=== PATIENT | female | born 1940 | race Caucasian/White ===

== ENCOUNTER 2016-06-16 18:15 | Inpatient (IN) | payer OTHER, BC ==
[~2016-06-16] VITALS: Ht 160 cm; Wt 63.1 kg
[~2016-06-16 18:15] MED LIST: ABAT1INJ2 INJ; ALBUAER2 INH; ASPI81TA28 PO; BIOTCAP2 PO; CHOL100010 PO; DICL1GEL34 TOP; DILT120T8 PO; HYDR200T5 PO; METH2.5T PO; MULT-506 PO; NAPR1TAB9 PO; OMEG10007 PO; POLY99.02 OP; POLYSOL4 OP; SPIR50TA PO; SYMIN160 INH
[2016-06-16] MEDS ORDERED: ONDANSETRON INJ 2 MG/ML 2 ML VIAL IV STA (19:02)
[2016-06-16] MEDS ORDERED: SODIUM CHLORIDE 0.9% 1000ML 1,000 ML IV STA (19:02)
[2016-06-16] MEDS ORDERED: SODIUM CHLORIDE 0.9% 1000ML 500 ML IV STA (19:02)
[2016-06-16] MEDS ORDERED: VNTHFA/IN INH (19:20)
[2016-06-16] MEDS ORDERED: CHOL1000 PO (19:20)
--- NOTE | 2016-06-16 19:33 | DIAGNOSTIC IMAGING REPORT ---
CHEST ONE VIEW PORTABLE CLINICAL HISTORY: EVALUATE ALTERED MENTAL STATUS/WEAKNESS dyspnea COMPARISON STUDY: 02/17/2016 FINDINGS: Chronic bibasilar parenchymal/linear scarring. Unchanging Baseline emphysematous change. No acute infiltrate. IMPRESSION: Chronic change. Emphysematous change. No acute or interval process. Electronically signed by: Emiliano Bolden M.D. 06/16/2016 7:32 PM Dictated Date/Time: 06/16/2016 7:31 PM
[2016-06-16 19:40] LABS: PARTIAL THROMBOPLASTIN RATIO 1.1; PROTHROMBIN TIME (PATIENT) 10.6 SECONDS (9.0-12.0)
--- NOTE | 2016-06-16 19:52 | DIAGNOSTIC IMAGING REPORT ---
HEAD CT NONCONTRAST CT DOSE: 537.48 mGy.cm HISTORY: EVALUATE ALTERED MENTAL STATUS/WEAKNESS TECHNIQUE: Multiaxial CT images of the head were performed without the use of intravenous contrast. Comparison: 02/17/2016 Findings: The paranasal sinuses and mastoid air cells are clear. Unchanged exam compared to prior. Stable benign-appearing right central pontine calcifications. 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 Mild age-related chronic small vessel change. No acute intracranial hemorrhage. Impression: Chronic and age-related change. No acute intracranial abnormality. Electronically signed by: Emiliano Bolden M.D. 06/16/2016 7:51 PM Dictated Date/Time: 06/16/2016 7:50 PM
[2016-06-16 20:02] LABS: ALB/GLOB RATIO 1.3 (0.9-2); ALKALINE PHOSPHATASE 83 U/L (45-117); ALT/SGPT 42 U/L (12-78); AST/SGOT 34 U/L (15-37); BLOOD UREA NITROGEN 13 mg/dl (7-18); BUN/CREATININE RATIO 22.4 (10-20); CALCIUM 10.7 mg/dl (8.5-10.1); CARBON DIOXIDE 24 mmol/L (21-32); CHLORIDE 74 mmol/L (98-107); CREATININE 0.58 mg/dl (0.60-1.20); GLUCOSE 117 mg/dl (70-99); POTASSIUM 3.4 mmol/L (3.5-5.1); SODIUM 112 mmol/L (136-145)
[2016-06-16 20:09] LABS: HEMATOCRIT 37.5 % (37-47); MEAN CELL VOLUME 88.2 fL (80-100); MEAN CORPUSCULAR HEMOGLOBIN 34.1 pg (25-34); MEAN CORPUSCULAR HGB CONC 38.7 g/dl (32-36); MEAN PLATELET VOLUME 9.5 fL (7.4-10.4); PLATELET COUNT 261 K/uL (130-400); RED BLOOD COUNT 4.25 M/uL (4.2-5.4); WHITE BLOOD COUNT 16.84 K/uL (4.8-10.8)
[2016-06-16 20:11] LABS: BASO % 0.2 %; BASO ABS # 0.03 K/uL (0-0.2); COMPLETE YES; EOS % 0.6 %; IG% 0.7 %; LYMPH ABS # 1.68 K/uL (1.2-3.4); MONO % 10.6 %; NEUT % 77.9 %
[2016-06-16 20:30] LABS: URINE APPEARANCE CLOUDY (CLEAR); URINE BILIRUBIN NEG (NEG); URINE COLOR YELLOW; URINE EPITHELIAL CELL AUTO >30 /lpf (0-5); URINE NITRITE NEG (NEG); URINE PH 7.5 (4.5-7.5); URINE SPECIFIC GRAVITY 1.007 (1.000-1.030); UROBILINOGEN NEG (NEG); ZZURINE CULT IF INDIC CATH YES
[2016-06-16 20:33] LABS: MANUAL MICROSCOPIC REQUIRED? NO; REVIEW REQ? NO; SULFASALICYLIC ACID POS (NEG)
[2016-06-16] MEDS ORDERED: ACETAMINOPHEN 325 MG TAB PO PRN (22:15)
[2016-06-16] MEDS ORDERED: ALBUTEROL HFA 8 GM INHALER INH PRN (22:15)
[2016-06-16] MEDS ORDERED: ZOLPIDEM TARTRATE 5 MG TAB PO PRN (22:15)
[2016-06-16] MEDS ORDERED: NITROGLYCERIN 0.4 MG SL PER TAB CHARGE SL PRN (22:15)
[2016-06-16] MEDS ORDERED: PROMETHAZINE HCL INJ 12.5 MG in SODIUM CHLORIDE 0.9% 50ML 50 ML IV PRN (22:15)
[2016-06-16] MEDS ORDERED: DiphenhydrAMINE HCL 50 MG/ML VIAL IV PRN (22:15)
[2016-06-16] MEDS ORDERED: ONDANSETRON INJ 2 MG/ML 2 ML VIAL IV PRN (22:15)
[2016-06-16] MEDS ORDERED: LEVALBUTEROL/IPRATROPIUM NEB INH PRN (22:15)
[2016-06-16] MEDS ORDERED: NON-FORMULARY MEDICATION (Biotin (Biotin 5000) 5 MG) PO SCH (22:15)
[2016-06-16 23:05] VITALS: BP 134/74; PULSE 59; TEMP 36.7; O2SAT 93; Ht 160 cm; Wt 63.1 kg
[2016-06-16 23:05] LABS: CKMB/CK RATIO 1.4 (0-3.0)
[2016-06-16] MEDS: LORAZEPAM 2 MG/ML 1 ML VIAL IV PRN (23:34)
[2016-06-17] VITALS (9 sets, daily range): BP systolic 120–143; BP diastolic 69–85; PULSE 69–91; TEMP 36.5–37.6; O2SAT 88–94
--- NOTE | 2016-06-17 00:29 | EMERGENCY ROOM VISIT NOTE ---
History Report prepared by Shagufta: Joyce Lopez Under the Supervision of: Dr. Neo aYp M.D. First contact with patient: 18:56 Chief Complaint: FALL Stated Complaint: FALL History of Present Illness The patient is a 75 year old female who presents to the Emergency Room with complaints of constant injuries from a fall that occurred just prior to arrival. The patient was brought in via EMS after slipping in the shower and then falling. She notes that she felt dizzy before she fell. The patient currently is nauseated. She did have a previous fall recently. She denies LOC, headache, vertigo sensation, urinary symptoms, blood thinner use, chest pain, or shortness of breath. The patient is scheduled for a knee replacement tomorrow. Source of History: patient Onset: just [employer] Position: other (global) Quality: other (injuries from fall) Timing: constant Associated Symptoms: + nausea, No LOC, No SOB, No chest pain, No urinary symptoms Review of Systems See HPI for pertinent positives & negatives. A total of 10 systems reviewed and were otherwise negative. Past Medical & Surgical Medical Problems: (1) Asthma (2) Bronchitis (3) Hypo-osmolality and hyponatremia (4) Rheumatoid arthritis Family History Patient reports no known family medical history. Social History Smoking Status: Former Smoker Alcohol Use: none Drug Use: none Marital Status: single Housing Status: lives alone Occupation Status: retired Current/Historical Medications Scheduled Aspirin (Aspirin Ec), 81 MG PO QPM Biotin (Biotin 5000), 5 MG PO Q2D Budesonide/Formoterol Fumarate (Symbicort 160/4.5 Inhaler), 1 PUFF INH QAM Cholecalciferol (Vitamin D3), 5,000 UNITS PO DAILY Diltiazem Hcl (Cardizem), 120 MG PO BID Hctz/Spironolactone 25MG/25MG (Aldactazide 25MG/25MG), 1 TAB PO BID Hydroxychloroquine Sulfate (Plaquenil), 200 MG PO BID Multivitamin (Multivitamin), 1 TAB PO QAM Scheduled PRN Albuterol Hfa (Ventolin Hfa), 2 PUFFS INH QID PRN for Shortness of Breath Allergies Coded Allergies: Latex1 -Allergic Contact Dermititis (Verified Allergy, Mild, RASH, 06/05/16 ) Banana (Verified Allergy, Unknown, RASH, 06/05/16) [place] Nut (Verified Allergy, Unknown, HIVES, 06/05/16) Ciprofloxacin (Verified Allergy, Unknown, PASSED OUT, SEVERE RXN PER PATIENT, 06/05/16) Codeine (Verified Allergy, Unknown, DIZZINESS, 06/05/16) Moxifloxacin (Verified Allergy, Unknown, PAIN IN HEEL, 06/05/16) Nickel (Verified Allergy, Unknown, RASH ON EARS WITH EARRINGS WITH NICKEL , 06/05/16) Sulfa Antibiotics (Verified Allergy, Unknown, UNSURE OF RXN, 06/05/16) Fluconazole (Verified Adverse Reaction, Intermediate, TACHYCARDIA, HAIR LOSS, 06/12/16) Adhesives (Verified Adverse Reaction, Mild, CONTACT DERMATITIS, 06/05/16) Lactose. (Verified Adverse Reaction, Unknown, GI SYMPTOMS, 06/05/16) Pt reports lactose intolerance Physical Exam Vital Signs Date Time Temp Pulse Resp B/P Pulse Ox O2 Delivery O2 Flow Rate FiO2 06/16/16 21:13 56 18 122/58 93 Room Air 06/16/16 19:57 56 16 132/78 95 Room Air 06/16/16 19:14 58 06/16/16 18:26 36.6 63 20 153/75 99 Room Air Physical Exam GENERAL: Patient is in no acute distress. HEENT: Right facial deformity secondary to old injury. There is an old contusion inferior to the left eye. No cellulitis. Mucous membranes moist. NECK: No stridor, no adenopathy, no meningismus, trachea is midline. LUNGS: Clear to auscultation bilaterally, no wheeze, no rhonchi, breath sounds equal. HEART: Without murmurs gallops or rubs, regular rate and rhythm. ABDOMEN: Soft, nontender, bowel sounds positive, no hernias, no peritonitis. EXTREMITIES: No cyanosis or edema, full range of motion of all the joints without pain or difficulty, no signs for acute trauma. NEUROLOGIC: Oriented x 3, no acute motor or sensory deficits, no focal weakness. SKIN: No rash, no jaundice, no diaphoresis. Medical Decision & Procedures ER Provider Diagnostic Interpretation: X ray results and stated below per my interpretation and radiologist interpretation. Other radiology results and stated below per my review and radiologist interpretation: HEAD CT NONCONTRAST CT DOSE: 537.48 mGy.cm HISTORY: EVALUATE ALTERED MENTAL STATUS/WEAKNESS TECHNIQUE: Multiaxial CT images of the head were performed without the use of intravenous contrast. Comparison: 02/17/2016 Findings: The paranasal sinuses and mastoid air cells are clear. Unchanged exam compared to prior. Stable benign-appearing right central pontine calcifications. 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 Mild age-related chronic small vessel change. No acute intracranial hemorrhage. Impression: Chronic and age-related change. No acute intracranial abnormality. Electronically signed by: Emiliano Bolden M.D. 06/16/2016 7:51 PM Dictated Date/Time: 06/16/2016 7:50 PM CHEST ONE VIEW PORTABLE CLINICAL HISTORY: EVALUATE ALTERED MENTAL STATUS/WEAKNESS dyspnea COMPARISON STUDY: 02/17/2016 FINDINGS: Chronic bibasilar parenchymal/linear scarring. Unchanging Baseline emphysematous change. No acute infiltrate. IMPRESSION: Chronic change. Emphysematous change. No acute or interval process. Electronically signed by: Emiliano Bolden M.D. 06/16/2016 7:32 PM Dictated Date/Time: 06/16/2016 7:31 PM Laboratory Results 06/16/16 19:05 Red Blood Count 4.25, Mean Corpuscular Volume 88.2, Mean Corpuscular Hemoglobin 34.1, Mean Corpuscular Hemoglobin Concent 38.7, Mean Platelet Volume 9.5, Neutrophils (%) (Auto) 77.9, Lymphocytes (%) (Auto) 10.0, Monocytes (%) (Auto) 10.6, Eosinophils (%) (Auto) 0.6, Basophils (%) (Auto) 0.2, Neutrophils # (Auto ) 13.14, Lymphocytes # (Auto) 1.68, Monocytes # (Auto) 1.78, Eosinophils # (Auto ) 0.10, Basophils # (Auto) 0.03 06/16/16 19:05 Test 06/16/16 19:05 06/16/16 20:06 White Blood Count 16.84 K/uL (4.8-10.8) Red Blood Count 4.25 M/uL (4.2-5.4) Hemoglobin 14.5 g/dL (12.0-16.0) Hematocrit 37.5 % (37-47) Mean Corpuscular Volume 88.2 fL (80-100) Mean Corpuscular Hemoglobin 34.1 pg (25-34) Mean Corpuscular Hemoglobin Concent 38.7 g/dl (32-36) Platelet Count 261 K/uL (130-400) Mean Platelet Volume 9.5 fL (7.4-10.4) Neutrophils (%) (Auto) 77.9 % Lymphocytes (%) (Auto) 10.0 % Monocytes (%) (Auto) 10.6 % Eosinophils (%) (Auto) 0.6 % Basophils (%) (Auto) 0.2 % Neutrophils # (Auto) 13.14 K/uL (1.4-6.5) Lymphocytes # (Auto) 1.68 K/uL (1.2-3.4) Monocytes # (Auto) 1.78 K/uL (0.11-0.59) Eosinophils # (Auto) 0.10 K/uL (0-0.5) Basophils # (Auto) 0.03 K/uL (0-0.2) RDW Standard Deviation 41.9 fL (36.4-46.3) RDW Coefficient of Variation 13.1 % (11.5-14.5) Immature Granulocyte % (Auto) 0.7 % Immature Granulocyte # (Auto) 0.11 K/uL (0.00-0.02) Red Blood Cell Morphology Unremarkable Prothrombin Time 10.6 SECONDS (9.0-12.0) Prothromb Time International Ratio 1.0 (0.9-1.1) Activated Partial Thromboplast Time 28.5 SECONDS (21.0-31.0) Partial Thromboplastin Ratio 1.1 Anion Gap 14.0 mmol/L (3-11) Est Creatinine Clear Calc Drug Dose 74.1 ml/min Estimated GFR () 103.8 Estimated GFR (Non- 89.5 BUN/Creatinine Ratio 22.4 (10-20) Osmolality 237 mOsm/kg (280-300) Calcium Level 10.7 mg/dl (8.5-10.1) Total Bilirubin 0.7 mg/dl (0.2-1) Aspartate Amino Transf (AST/SGOT) 34 U/L (15-37) Alanine Aminotransferase (ALT/SGPT) 42 U/L (12-78) Alkaline Phosphatase 83 U/L (45-117) Total Creatine Kinase 405 U/L (26-192) Creatine Kinase MB 5.8 ng/ml (0.5-3.6) Creatine Kinase MB Ratio 1.4 (0-3.0) Troponin I < 0.015 ng/ml (0-0.045) Total Protein 6.9 gm/dl (6.4-8.2) Albumin 3.9 gm/dl (3.4-5.0) Globulin 3.0 gm/dl (2.5-4.0) Albumin/Globulin Ratio 1.3 (0.9-2) Thyroid Stimulating Hormone (TSH) 3.500 uIu/ml (0.300-4.500) Urine Color YELLOW Urine Appearance CLOUDY (CLEAR) Urine pH 7.5 (4.5-7.5) Urine Specific [place] 1.007 (1.000-1.030) Urine Protein TRACE (NEG) Urine Glucose (UA) NEG (NEG) Urine Ketones 1+ (NEG) Urine Occult Blood TRACE (NEG) Urine Nitrite NEG (NEG) Urine Bilirubin NEG (NEG) Urine Urobilinogen NEG (NEG) Urine Leukocyte Esterase NEG (NEG) Urine WBC (Auto) 1-5 /hpf (0-5) Urine RBC (Auto) 0-4 /hpf (0-4) Urine Hyaline Casts (Auto) 1-5 /lpf (0-5) Urine Epithelial Cells (Auto) >30 /lpf (0-5) Urine Bacteria (Auto) 2+ (NEG) Urine Osmolality 364 mOms/kg (500-800) Laboratory results reviewed by me. Medications Administered Medications (Trade) Dose Ordered Sig/Garima Route Start Time Stop Time Status Last Admin Dose Admin Sodium Chloride (Nss 1000ml) 500 ml @ 999 mls/hr Q31M STAT IV 06/16/16 19:02 06/16/16 19:32 DC 06/16/16 19:19 999 MLS/HR Ondansetron HCl 4 mg 4 mg NOW STAT IV 06/16/16 19:02 06/16/16 19:05 DC 06/16/16 19:19 4 MG Sodium Chloride (Nss 1000ml) 1,000 ml @ 200 mls/hr Q5H STAT IV 06/16/16 19:02 06/16/16 23:08 DC 06/16/16 19:28 200 MLS/HR ECG Indication: other (fall) Rate (beats per minute): 53 Rhythm: sinus bradycardia Findings: PVC, T-wave inversion (Lateral) Change: T wave inversion laterally is new from 02/17/16. ED Course 1858: The patient was evaluated in room B6. A complete history and physical exam was performed. 1901: Sodium Chloride 1,000 ml @ 200 mls/hr IV, Zofran Inj 4 mg IV, Sodium Chloride 500 ml @ 999 mls/hr IV. 2038: I reevaluated the patient and informed her on the plan for hospitalization. 2040: Discussed the patient's case with Dr. Gregorio WHITAKER. The patient will be evaluated for further management. 2044: Upon reexamination the patient is hemodynamically stable. I discussed results and treatment plan with the patient. She verbalizes agreement and understanding. The patient will be evaluated for further management. Medical Decision The patient is a 75 year old female who presents to the ED with complaints of injuries from a fall. Differential diagnoses considered include intracranial bleeding, electrolyte imbalance, dehydration, anemia, UTI, stroke, cardiac ischemia, dysrhythmia. There is a moderate leukocytosis which could be consistent with infection or the stress of her current situation. No worrisome anemia. Renal panel testing shows a significant hyponatremia. No kidney failure. There was no hepatitis. The patient appeared to be in a euthyroid state. EKG showed a sinus rhythm, there were T-wave inversions in the anterior leads-these were new. Cardiac troponin testing 1 is not suggestive of acute cardiac injury. Chest does not show pneumonia or CHF. Brain CT shows no acute bleed or mass effect. Urinalysis does not show infection. On exam, there were no focal neurologic deficits. Patient received IV saline and IV Zofran, she feels improved. The patient requires a hospital stay. She is markedly hyponatremic. This explains her presentation and symptom complex. I spoke to the patient and case management. The on-call hospitalist was consulted. Consults Time Called: 2038 Consulting Physician: Dr. Gregorio WHITAKER Returned Call: [phone] Discussed the patient's case with Dr. Gregorio WHITAKER. The patient will be evaluated for further management. Impression Primary Impression: Hyponatremia Additional Impressions: Weakness Fall Acute electrocardiogram changes Scribe Attestation The scribe's documentation has been prepared under my direction and personally reviewed by me in its entirety. I confirm that the note above accurately reflects all work, treatment, procedures, and medical decision making performed by me. Departure Information Dispostion Being Evaluated By Hospitalist Referrals Jamin Herring M.D. (PCP) Problem Qualifiers
--- NOTE | 2016-06-17 00:47 | History and Physical ---
History & Physical Date & Time of Service: Jun 17, 2016 at 00:46 Chief Complaint: Hypo-Osmolality And Hyponatremia Primary Care Physician: Jamin Herring M.D. History of Present Illness Source: patient The patient is a 75 yo female who presents to the emergency department with report of a fall that occurred after slipping in the shower just prior to arrival. She reports that she did feel dizzy before she fell. She denies any head trauma. She has been having persistent issues with nausea over the past weeks and for that reason has had decreased oral intake. She continues to take all her medications as directed. She was due to undergo a total knee arthroplasty tomorrow morning with Dr. Cornell. Past Medical/Surgical History Medical Problems: (1) Asthma Status: Chronic (2) Bronchitis Status: Resolved (3) Rheumatoid arthritis Status: Chronic Family History Patient reports no known family medical history. Social History Smoking Status: Former Smoker Smokeless Tobacco Use: No Alcohol Use: none Drug Use: none Marital Status: single Housing status: lives alone Occupational Status: retired Multi-Drug Resistant Organisms History of MDRO: No Allergies Coded Allergies: Latex1 -Allergic Contact Dermititis (Verified Allergy, Mild, RASH, 06/05/16 ) Banana (Verified Allergy, Unknown, RASH, 06/05/16) Prosser Nut (Verified Allergy, Unknown, HIVES, 06/05/16) Ciprofloxacin (Verified Allergy, Unknown, PASSED OUT, SEVERE RXN PER PATIENT, 06/05/16) Codeine (Verified Allergy, Unknown, DIZZINESS, 06/05/16) Moxifloxacin (Verified Allergy, Unknown, PAIN IN HEEL, 06/05/16) Nickel (Verified Allergy, Unknown, RASH ON EARS WITH EARRINGS WITH NICKEL , 06/05/16) Sulfa Antibiotics (Verified Allergy, Unknown, UNSURE OF RXN, 06/05/16) Fluconazole (Verified Adverse Reaction, Intermediate, TACHYCARDIA, HAIR LOSS, 06/12/16) Adhesives (Verified Adverse Reaction, Mild, CONTACT DERMATITIS, 06/05/16) Lactose. (Verified Adverse Reaction, Unknown, GI SYMPTOMS, 06/05/16) Pt reports lactose intolerance Home Medications Scheduled Aspirin (Aspirin Ec), 81 MG PO QPM Biotin (Biotin 5000), 5 MG PO Q2D Budesonide/Formoterol Fumarate (Symbicort 160/4.5 Inhaler), 1 PUFF INH QAM Cholecalciferol (Vitamin D3), 5,000 UNITS PO DAILY Diltiazem Hcl (Cardizem), 120 MG PO BID Hctz/Spironolactone 25MG/25MG (Aldactazide 25MG/25MG), 1 TAB PO BID Hydroxychloroquine Sulfate (Plaquenil), 200 MG PO BID Multivitamin (Multivitamin), 1 TAB PO QAM Scheduled PRN Albuterol Hfa (Ventolin Hfa), 2 PUFFS INH QID PRN for Shortness of Breath Review of Systems The patient denies chest pain, palpitations, shortness of breath, cough, lower extremity swelling, vision change, hearing change, sore throat, fevers, chills, sweats, weight change, vomiting, abdominal pain, pelvic pain, blood in urine or stool, dysuria, urinary frequency or urgency, memory loss, rash, abnormal bruising or bleeding, focal weakness, numbness or tingling in arms or legs, any change in her chronic arthralgias or myalgias, back or neck pain, night sweats, or allergy symptoms. The review of systems is otherwise negative other than for that already noted above, and at least 10 systems have been reviewed. Physical Exam Vital Signs Date Time Temp Pulse Resp B/P Pulse Ox O2 Delivery O2 Flow Rate FiO2 06/16/16 23:05 36.7 59 20 134/74 93 Room Air 06/16/16 22:16 56 06/16/16 22:15 57 16 130/67 93 Room Air 06/16/16 21:13 56 18 122/58 93 Room Air 06/16/16 19:57 56 16 132/78 95 Room Air 06/16/16 19:14 58 06/16/16 18:26 36.6 63 20 153/75 99 Room Air The patient is awake, well-developed and adequately nourished, alert and oriented 3, has a small bruise over left zygomatic arch, lying in bed and in no acute distress. HEENT--artificial right eye with lacrimation, mucous membranes and oropharynx dry. Neck--supple, no JVD or bruits, thyroid normal, trachea midline, no adenopathy. Heart--normal S1 and S2, no extra beats, no murmurs, rubs or gallops. Lungs--clear bilaterally with good air movement, no respiratory distress, no accessory muscle use. Abdomen--normal bowel sounds and soft, nontender and nondistended, no hernias or masses, no organomegaly. Extremities--no cyanosis, clubbing or edema. There are good distal pulses b/l. Dermatologic--normal skin turgor, normal color, warm and dry, no abnormal lymph nodes, no rash. Bruise over left side medical just noted above. Neurologic--cranial nerves II through XII grossly intact, motor and sensory examination normal. Rheumatologic--normal range of motion, nontender, muscles and joints. Psychiatric--normal affect. Diagnostics Laboratory Results Results Past 24 Hours Test 06/16/16 19:05 06/16/16 20:06 Range/Units White Blood Count 16.84 4.8-10.8 K/uL Red Blood Count 4.25 4.2-5.4 M/uL Hemoglobin 14.5 12.0-16.0 g/dL Hematocrit 37.5 37-47 % Mean Corpuscular Volume 88.2 80-100 fL Mean Corpuscular Hemoglobin 34.1 25-34 pg Mean Corpuscular Hemoglobin Concent 38.7 32-36 g/dl Platelet Count 261 130-400 K/uL Mean Platelet Volume 9.5 7.4-10.4 fL Neutrophils (%) (Auto) 77.9 % Lymphocytes (%) (Auto) 10.0 % Monocytes (%) (Auto) 10.6 % Eosinophils (%) (Auto) 0.6 % Basophils (%) (Auto) 0.2 % Neutrophils # (Auto) 13.14 1.4-6.5 K/uL Lymphocytes # (Auto) 1.68 1.2-3.4 K/uL Monocytes # (Auto) 1.78 0.11-0.59 K/uL Eosinophils # (Auto) 0.10 0-0.5 K/uL Basophils # (Auto) 0.03 0-0.2 K/uL RDW Standard Deviation 41.9 36.4-46.3 fL RDW Coefficient of Variation 13.1 11.5-14.5 % Immature Granulocyte % (Auto) 0.7 % Immature Granulocyte # (Auto) 0.11 0.00-0.02 K/uL Red Blood Cell Morphology Unremarkable Prothrombin Time 10.6 9.0-12.0 SECONDS Prothromb Time International Ratio 1.0 0.9-1.1 Activated Partial Thromboplast Time 28.5 21.0-31.0 SECONDS Partial Thromboplastin Ratio 1.1 Sodium Level 112 136-145 mmol/L Potassium Level 3.4 3.5-5.1 mmol/L Chloride Level 74 98-107 mmol/L Carbon Dioxide Level 24 21-32 mmol/L Anion Gap 14.0 3-11 mmol/L Blood Urea Nitrogen 13 7-18 mg/dl Creatinine 0.58 0.60-1.20 mg/dl Est Creatinine Clear Calc Drug Dose 74.1 ml/min Estimated GFR () 103.8 Estimated GFR (Non- 89.5 BUN/Creatinine Ratio 22.4 10-20 Random Glucose 117 70-99 mg/dl Osmolality 237 280-300 mOsm/kg Calcium Level 10.7 8.5-10.1 mg/dl Total Bilirubin 0.7 0.2-1 mg/dl Aspartate Amino Transf (AST/SGOT) 34 15-37 U/L Alanine Aminotransferase (ALT/SGPT) 42 12-78 U/L Alkaline Phosphatase 83 45-117 U/L Total Creatine Kinase 405 26-192 U/L Creatine Kinase MB 5.8 0.5-3.6 ng/ml Creatine Kinase MB Ratio 1.4 0-3.0 Troponin I < 0.015 0-0.045 ng/ml Total Protein 6.9 6.4-8.2 gm/dl Albumin 3.9 3.4-5.0 gm/dl Globulin 3.0 2.5-4.0 gm/dl Albumin/Globulin Ratio 1.3 0.9-2 Thyroid Stimulating Hormone (TSH) 3.500 0.300-4.500 uIu/ml Urine Color YELLOW Urine Appearance CLOUDY CLEAR Urine pH 7.5 4.5-7.5 Urine Specific [place] 1.007 1.000-1.030 Urine Protein TRACE NEG Urine Glucose (UA) NEG NEG Urine Ketones 1+ NEG Urine Occult Blood TRACE NEG Urine Nitrite NEG NEG Urine Bilirubin NEG NEG Urine Urobilinogen NEG NEG Urine Leukocyte Esterase NEG NEG Urine WBC (Auto) 1-5 0-5 /hpf Urine RBC (Auto) 0-4 0-4 /hpf Urine Hyaline Casts (Auto) 1-5 0-5 /lpf Urine Epithelial Cells (Auto) >30 0-5 /lpf Urine Bacteria (Auto) 2+ NEG Urine Osmolality 364 500-800 mOms/kg Microbiology Results 06/16/16 Urine Culture, Received Pending Diagnostic Radiology Patient Name: PATTY LIANG Unit Number: [id number] Dictated: 06/16/161949 Transcribed: 06/16/161949 MS Printed Date/Time: [~ rep prt dt]/[~ rep prt tm] [~ rep ct labl] - [~ rep ct ivnm] [facility] [place] [address] Dictated: 06/16/161949 Transcribed: 06/16/161949 MS Printed Date/Time: [~ rep prt dt]/[~ rep prt tm] [~ rep ct labl] - [~ rep ct ivnm] HEAD CT NONCONTRAST CT DOSE: 537.48 mGy.cm HISTORY: EVALUATE ALTERED MENTAL STATUS/WEAKNESS TECHNIQUE: Multiaxial CT images of the head were performed without the use of intravenous contrast. Comparison: 02/17/2016 Findings: The paranasal sinuses and mastoid air cells are clear. Unchanged exam compared to prior. Stable benign-appearing right central pontine calcifications. 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 Mild age-related chronic small vessel change. No acute intracranial hemorrhage. Impression: Chronic and age-related change. No acute intracranial abnormality. Electronically signed by: Emiliano Bolden M.D. 06/16/2016 7:51 PM Dictated Date/Time: 06/16/2016 7:50 PM The status of this report is Signed. Draft = Not yet reviewed or approved by Radiologist. Signed = Reviewed and approved by Radiologist. <AttendingPhy></AttendingPhy> <FamilyPhy>Jamin Herring M.D.</FamilyPhy> < PrimaryPhy>Jamin Herring M.D.</PrimaryPhy> <UnitNumber>[id number]</UnitNumber > <VisitNumber>[id number]</VisitNumber> <PatientName>PATTY LIANG</ PatientName> <DateOfBirth>1940</DateOfBirth> <Location>C[facility]EDB</Location> < ServiceDate>02/07/17</ServiceDate> <MNE>ESINDI</MNE> <OrderingPhy>Neo Yap M.D.</OrderingPhy> <OrderingPhyMNE>f rep ord dr owens</OrderingPhyMNE> < DictatingPhyMNE>f rep dict dr owens</DictatingPhyMNE> <CCListMNE>f rep ct mne</ CCListMNE> <AdmittingPhyMNE>f pt admit dr owens</AdmittingPhyMNE> <AttendingPhyMNE >f pt attend dr owens</AttendingPhyMNE> <ConsultingPhyMNE>f pt consult dr owens</ConsultingPhyMNE> <FamilyPhyMNE>f pt fam dr owens</FamilyPhyMNE> <OtherPhyMNE>f pt other dr owens</OtherPhyMNE> < PrimaryPhyMNE>f pt prim care dr owens</PrimaryPhyMNE> <ReferringPhyMNE>f pt referring dr owens</ReferringPhyMNE> Patient Name: PATTY LIANG Unit Number: [id number] Dictated: 06/16/161930 Transcribed: 06/16/161930 MS Printed Date/Time: [~ rep prt dt]/[~ rep prt tm] [~ rep ct labl] - [~ rep ct ivnm] [facility] [place] [address] Dictated: 06/16/161930 Transcribed: 06/16/161930 MS Printed Date/Time: [~ rep prt dt]/[~ rep prt tm] [~ rep ct labl] - [~ rep ct ivnm] CHEST ONE VIEW PORTABLE CLINICAL HISTORY: EVALUATE ALTERED MENTAL STATUS/WEAKNESS dyspnea COMPARISON STUDY: 02/17/2016 FINDINGS: Chronic bibasilar parenchymal/linear scarring. Unchanging Baseline emphysematous change. No acute infiltrate. IMPRESSION: Chronic change. Emphysematous change. No acute or interval process. Electronically signed by: Emiliano Bolden M.D. 06/16/2016 7:32 PM Dictated Date/Time: 06/16/2016 7:31 PM The status of this report is Signed. Draft = Not yet reviewed or approved by Radiologist. Signed = Reviewed and approved by Radiologist. <AttendingPhy></AttendingPhy> <FamilyPhy>Jamin Herring M.D.</FamilyPhy> < PrimaryPhy>Jamin Herring M.D.</PrimaryPhy> <UnitNumber>[id number]</UnitNumber > <VisitNumber>[id number]</VisitNumber> <PatientName>PATTY LIANG</ PatientName> <DateOfBirth>1940</DateOfBirth> <Location>C.EDB</Location> < ServiceDate>06/16/16</ServiceDate> <MNE>ESINDI</MNE> <OrderingPhy>Neo Yap M.D.</OrderingPhy> <OrderingPhyMNE>f rep ord dr owens</OrderingPhyMNE> < DictatingPhyMNE>f rep dict dr owens</DictatingPhyMNE> <CCListMNE>f rep ct mne</ CCListMNE> <AdmittingPhyMNE>f pt admit dr owens</AdmittingPhyMNE> <AttendingPhyMNE >f pt attend dr owens</AttendingPhyMNE> <ConsultingPhyMNE>f pt consult dr owens</ConsultingPhyMNE> <FamilyPhyMNE>f pt fam dr owens</FamilyPhyMNE> <OtherPhyMNE>f pt other dr owens</OtherPhyMNE> < PrimaryPhyMNE>f pt prim care dr owens</PrimaryPhyMNE> <ReferringPhyMNE>f pt referring dr owens</ReferringPhyMNE> EKG EKG shows sinus bradycardia 53 bpm, with T-wave inversions in leads V1 through V3, new compared to previous EKG. Impression Assessment and Plan Hyponatremia with hypoosmolality--sodium is 112, potassium 3.4, serum osmolality is 237, urine osmolality is 341, urine sodium is pending. Will hold the patient's HCTZ/spironolactone 25/25 by mouth twice a day. We'll follow serial basic metabolic panel and magnesium levels. She has received 1 L of normal saline in the emergency department, and will not place on any further IV fluids at this point. We'll place on 1500 mL fluid restriction. 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 We'll consult her olive grader Dr. Herring for further management suggestions. Abnormal EKG/bradycardia with normal cardiac enzymes--the patient will be admitted to the telemetry unit, for serial cardiac enzymes, cardiac rhythm monitoring and a 2-D echocardiogram with Dopplers. We'll continue enteric- coated aspirin 81 mg by mouth daily. We'll continue Cardizem CD 120 mg by mouth twice a day with hold parameters. If blood pressure becomes elevated and she remains bradycardic, when available hydralazine 10 mg IV every 4 hours when necessary systolic blood pressure greater than 140. Rheumatoid arthritis--continue hydroxychloroquine 200 mg by mouth twice a day. Asthma--appears to be at her baseline, will continue Simcor 160/4.5 one inhalation every morning and albuterol HFA 2 puffs 4 times a day when necessary. Knee osteoarthritis--she was due for a total knee arthroplasty with Dr. Cornell on June 17, which will need to be rescheduled when she is in a better clinical state. Level of Care Telemetry Advanced Directives Existing Advance Directive: No Existing Living Will: Yes Existing Power of Stationary Plant Operators: No Resuscitation Status FULL RESUSCITATION VTE Prophylaxis VTE Risk Assessment Done? Y/N: Yes Risk Level: Moderate Given or contraindicated: SCD's
[2016-06-17 07:38] LABS: BLOOD UREA NITROGEN 17 mg/dl (7-18); BUN/CREATININE RATIO 39.5 (10-20); CARBON DIOXIDE 20 mmol/L (21-32); CHLORIDE 80 mmol/L (98-107); CKMB/CK RATIO 1.7 (0-3.0); CREATININE 0.44 mg/dl (0.60-1.20); GLUCOSE 141 mg/dl (70-99); MAGNESIUM 1.5 mg/dl (1.8-2.4); SODIUM 115 mmol/L (136-145)
[2016-06-17 08:00] LABS: BASO ABS # 0.01 K/uL (0-0.2); COMPLETE YES; ECHINOCYTES 1+; HEMATOCRIT 36.7 % (37-47); HYPERSEGMENTED POLYS 1+; IG% 0.4 %; LYMPH % 4.5 %; LYMPH ABS # 1.12 K/uL (1.2-3.4); MEAN CELL VOLUME 87.8 fL (80-100); MEAN CORPUSCULAR HEMOGLOBIN 33.5 pg (25-34); MEAN CORPUSCULAR HGB CONC 38.1 g/dl (32-36); MONO % 2.2 %; NEUT % 92.9 %; PLATELET COUNT 241 K/uL (130-400); RED BLOOD COUNT 4.18 M/uL (4.2-5.4); WHITE BLOOD COUNT 24.66 K/uL (4.8-10.8)
[2016-06-17] MEDS: MULTIVITAMIN TAB PO SCH (08:05)
[2016-06-17] MEDS: CHOLECALCIFEROL 1000 INTER.UNIT TAB PO SCH (08:06)
[2016-06-17] MEDS: BUDESONIDE/FORMOTEROL FUMARATE 160/4.5 60 PUFFS/INHALER INH SCH (08:06)
[2016-06-17] MEDS ORDERED: MAGNESIUM OXIDE 400 MG TAB PO STA (08:59)
[2016-06-17] MEDS ORDERED: POTASSIUM CHLORIDE 20 MEQ/15 ML UDC PO SCH (09:00)
[2016-06-17] MEDS: HYDROXYCHLOROQUINE SULFATE 200 MG TAB PO SCH ×2 (09:27→19:47)
[2016-06-17] MEDS: MAGNESIUM OXIDE 400 MG TAB PO SCH ×2 (09:28→19:47)
[2016-06-17 11:16] LABS: ALLEN TEST POS (POS); ARTERIAL BLD GAS O2 SATURATION 91.2 % (90-95); ARTERIAL BLOOD GAS BASE EXCESS 1.1 mEq/L (-9-1.8); ARTERIAL BLOOD GAS HCO3 24 mmol/L (19-24); ARTERIAL BLOOD GAS PO2 61 mm/Hg (80-95); ARTERIAL BLOOD GAS pH 7.48 (7.35-7.45); O2 ADMINISTRATION 2.5L
--- NOTE | 2016-06-17 11:17 | NEPHROLOGY CONSULTATION ---
DATE OF CONSULTATION: 06/17/2016 PROBLEM: Ms. Zepeda is a 75-year-old white female who was brought to the Emergency Room after a fall that occurred at home. Apparently she slipped getting out of the shower shortly before her arrival. Ms. 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 Her chronic regular medications include Tylenol 325-650 mg q. 4 hours p.r.n. pain, albuterol inhaler via nebulizer, alprazolam 0.25 mg b.i.d. p.r.n., aspirin 81 mg daily, diltiazem 120 mg daily, Aldactazide 25/25 b.i.d., flavoxate 100 mg daily p.r.n. Docusate sodium 100 mg b.i.d. p.r.n., fish oil 1000 mg once or twice daily, folic acid 3 mg daily, Plaquenil 200 mg b.i.d., magnesium supplements, methotrexate 10 mg weekly, multivitamin, naproxen 250 mg b.i.d., Orencia injected on a regular basis, Senexon-S 8.6/50 one daily, Symbicort 160/4.5 two puffs b.i.d., Viactiv 500-500-40 daily, vitamin D 5000 units daily, and transdermal Voltaren 1% used on a daily basis to her knees. With the above medical problems. The patient has been struggling of late, particularly because of her problems of deforming rheumatoid arthritis and associated osteoarthritis involving her knees. Both kidneys have been unstable. Over the course of the past 6 months she has been scheduled to have a knee replacement. This was to have been done today by Dr. Cornell. Previously, she had been scheduled, but had to be cancelled because of the development of a urinary tract infection. When that was treated with Cipro, she developed the toxic psychosis which is an unusual, but well recognized side effect of ciprofloxin. She has recovered completely from that and was living independently. Pursuant to her immediate problem is her longstanding history of hypertension. Of late, she has been following a restricted sodium diet and has been taking spironolactone/hydrochlorothiazide 25/25 b.i.d., as well as Diltiazem ER 120 mg daily. She has been following a restricted sodium diet. For several days prior to her admission, she has not had a particularly good appetite, but was taking her medicines. She denied having any nausea or vomiting. She had no diarrhea. She managed to follow her blood pressures at home and said that her systolic pressures varied from 130-140. She is uncertain as to what her diastolic pressures were. She was not experiencing any orthostatic lightheadedness or dizziness. Yesterday, immediately prior to her coming to the Emergency Room, she was taking a shower and when she went to leave the shower she apparently slipped and hit her head. She said that she did feel slightly lightheaded before she fell. She has had other falls at home related to her gait instability from her arthritis. Nonetheless, she came to the ER and in the Emergency Room was found to be markedly hyponatremic. Her blood pressure in the ER was slightly lower than she has been measuring at home. She had no other particular symptoms. The remainder of her past medical history is outlined with the above medical problems. ALLERGIES: AVELOX GIVES HER A RASH. SHE HAD A HISTORY OF A TOXIC PSYCHOSIS FROM [place]. SHE HAS SIDE EFFECTS WITH CODEINE WITH GASTROINTESTINAL SYMPTOMS. SHE ALSO REPORTS ALLERGIES TO BOTH DIFLUCAN AND SULFA DRUGS. OBJECTIVE: GENERAL: On physical exam when seen by me, Ms. Zepeda appeared to be somewhat lethargic, but not particularly confused. She was easily aroused. VITAL SIGNS: Her blood pressure was 120/73, with a pulse of 91 and regular, her respiratory rate is 18, her pulse ox was 89-94% on 2 liters of oxygen via nasal cannula. SKIN: Showed scars from prior surgical procedures. Her skin turgor was normal to very minimally reduced. There is no rash or infiltrative skin disease. She has some ecchymoses beneath her left eye from prior trauma, but not from last night's event. LYMPHATICS: Show no palpable lymphadenopathy. HEAD: Her head is normal, although she does have evidence of a right Muro's palsy. EYES: Normal. The ocular fundi were not examined. She does have the ecchymoses beneath her left eye. EARS, NOSE, MOUTH AND THROAT: Unremarkable. Her oral mucous membranes are moist. NECK: Supple. She has no jugular venous distention, carotid bruit or thyromegaly. CHEST: Clear to auscultation. She has no wheezes, rales or rhonchi. CARDIAC: Shows a regular rhythm. S1 and S2 are normal. She has a soft systolic murmur at the base. ABDOMEN: Shows a left upper quadrant ventral hernia. Her abdomen is nontender. She has scars from the prior surgical procedures including her colostomy and its takedown. Bowel sounds are present. There are no abdominal bruits. EXTREMITIES: Show changes of deforming rheumatoid arthritis, particularly in her hands, as well as her feet. She has significant arthritic changes involving both knees. Peripheral pulses are difficult to feel. Her right foot shows signs of prior surgery with ankylosis. NEUROLOGIC: Shows her to be quite lethargic, but easily arousable. She has a right Muro's palsy, but no other lateralizing changes. PERTINENT LABORATORY WORK: From today, shows a white count of 24,660. Her hemoglobin is 14.0, her hematocrit 36.7. Her platelet count is 241,000. Her white cell differential shows a significant shift to the left with 92.9% neutrophils. Her urinalysis shows a specific gravity of 1.007. Her pH is 7.5. Her dipstick is trace for protein, negative for sugar and negative for blood. Her leukocyte esterase is negative. Her spun sediment shows 1-5 white cells and 0-4 red cells per high power field, and 1-5 hyaline casts per high power field. She has greater than 30 epithelial cells per low power field. A urine osmolality is 364. Her urine sodium is 64. Her prothrombin time is 10.6 with an INR of 1.0. Her PTT 28.5 with a PTTR of 1.1. Clinical chemistries from today show a sodium of 115 mmol/L (up from 112 on admission), her potassium is 3.0 mmol/L, chloride is 80 mmol/L, CO2 content 20 mmol/L. Her BUN is 17, her creatinine 0.44. A random blood sugar this morning was 141. Her serum osmolality measured at the time of her admission was 237 with a sodium of 112. Her serum calcium is 9.0, her magnesium 1.5. Her total CK is 198, CK-MB 3.4. Her troponin less than 0.015. IMAGING STUDIES: Include a chest x-ray that shows emphysematous changes, but no active infiltrate and no masses. No specific bullae are identified. CT scan of her head showed no acute abnormalities. She does have some chronic age-related changes. ASSESSMENT: Ms. Zepeda is a 75-year-old woman with a history of hypertension. She also has to deforming rheumatoid arthritis and osteoarthritis. She is unstable of gait related to her osteoarthritis. She was admitted after a fall and found to be significantly hyponatremic. She was taking her medications for hypertension including spironolactone/hydrochlorothiazide and diltiazem prior to admission, and states that she was not eating well because she was anxious about her upcoming surgery. Her current laboratory work shows 2 issues. One is obviously her hyponatremia. 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 However, given the fact that her blood pressure was somewhat lower at the time of admission, and she was not eating and taking diuretics, it may be that she was somewhat volume depleted. That would account for secretion of antidiuretic hormone. Her elevated urine sodium might have been because of her taking a diuretic within hours of the study being done. Additionally, she is hypokalemic. To fully understand that we would need blood gases. She might have had a respiratory alkalosis and as a result shifted potassium into cells. RECOMMENDATIONS: For now, I would try to minimize her fluid intake to about 1.2-1.5 liters per day. I would recommend we give her tolvaptan 15 mg today and make a decision as to how much more she will need on a day by day basis. Her electrolytes should be followed at least daily and preferably b.i.d. for the next 3 days. Certainly we do want to make her serum sodium rise too quickly for fear of precipitating central pontine myelinosis. Additionally, will need to check arterial blood gases to see if her hypokalemia is the result of a respiratory alkalosis that may be a consequence of her recent level of anxiety. Thank you for allowing me to participate in Ms. Zepeda's inpatient care. I will follow her with you.
[2016-06-17] MEDS ORDERED: TOLVAPTAN TAB 15 MG TAB PO ONE (11:30)
--- NOTE | 2016-06-17 11:42 | Medical Student: [facility] ---
Med Student Progress Note Date of Service Jun 17, 2016. Subjective Pt evaluation today including: conversation w/ patient, chart review 75y/o female admission day one for hyponatremia and fall currently states that her whole body is in pain from her fall yesterday. The patient cannot pinpoint a specific area that hurts and complains of diffuse pain. She does have some bruising on the left forehead and around the left eye. The patient states that she continues to feel tired and weak. She denies CP, SOB, fevers/chills, abdominal pain, nausea, and vomiting. 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), No memory loss Skin: No itch, No new/changing skin lesions, No rash Objective Vital Signs Date Time Temp Pulse Resp B/P Pulse Ox O2 Delivery O2 Flow Rate FiO2 06/17/16 11:11 36.9 74 20 125/69 93 Nasal Cannula 2.0 06/17/16 09:08 94 Nasal Cannula 2.0 06/17/16 08:07 37.0 91 18 120/73 89 Nasal Cannula 2.0 06/17/16 08:00 Nasal Cannula 2.0 06/17/16 04:03 Room Air 06/17/16 03:40 36.5 69 16 136/78 92 Room Air 06/16/16 23:05 36.7 59 20 134/74 93 Room Air 06/16/16 22:16 56 06/16/16 22:15 57 16 130/67 93 Room Air 06/16/16 21:13 56 18 122/58 93 Room Air 06/16/16 19:57 56 16 132/78 95 Room Air 06/16/16 19:14 58 06/16/16 18:26 36.6 63 20 153/75 99 Room Air Physical Exam General Appearance: WD/WN, no apparent distress Eyes: left eye pertinent finding (left eyelid shut from swelling and bruising around the eye) ENT: hearing grossly normal Respiratory/Chest: no respiratory distress, no accessory muscle use, + pertinent finding (course breath sounds) Cardiovascular: regular rate, rhythm, no edema, no gallop, no murmur Abdomen: normal bowel sounds, non tender, soft Extremities: normal inspection, no pedal edema Neurologic/Psychiatric: + pertinent finding (tired appearing, talking slowly but alert enough to respond to questions) Skin: normal color, warm/dry, no rash Laboratory Results Last 24 Hours Test 06/16/16 19:05 06/16/16 20:06 06/17/16 01:00 06/17/16 06:45 White Blood Count 16.84 K/uL 24.66 K/uL Red Blood Count 4.25 M/uL 4.18 M/uL Hemoglobin 14.5 g/dL 14.0 g/dL Hematocrit 37.5 % 36.7 % Mean Corpuscular Volume 88.2 fL 87.8 fL Mean Corpuscular Hemoglobin 34.1 pg 33.5 pg Mean Corpuscular Hemoglobin Concent 38.7 g/dl 38.1 g/dl Platelet Count 261 K/uL 241 K/uL Mean Platelet Volume 9.5 fL Neutrophils (%) (Auto) 77.9 % 92.9 % Lymphocytes (%) (Auto) 10.0 % 4.5 % Monocytes (%) (Auto) 10.6 % 2.2 % Eosinophils (%) (Auto) 0.6 % 0.0 % Basophils (%) (Auto) 0.2 % 0.0 % Neutrophils # (Auto) 13.14 K/uL 22.88 K/uL Lymphocytes # (Auto) 1.68 K/uL 1.12 K/uL Monocytes # (Auto) 1.78 K/uL 0.55 K/uL Eosinophils # (Auto) 0.10 K/uL 0.00 K/uL Basophils # (Auto) 0.03 K/uL 0.01 K/uL RDW Standard Deviation 41.9 fL RDW Coefficient of Variation 13.1 % Immature Granulocyte % (Auto) 0.7 % 0.4 % Immature Granulocyte # (Auto) 0.11 K/uL 0.10 K/uL Red Blood Cell Morphology Unremarkable Prothrombin Time 10.6 SECONDS Prothromb Time International Ratio 1.0 Activated Partial Thromboplast Time 28.5 SECONDS Partial Thromboplastin Ratio 1.1 Sodium Level 112 mmol/L 115 mmol/L Potassium Level 3.4 mmol/L 3.0 mmol/L Chloride Level 74 mmol/L 80 mmol/L Carbon Dioxide Level 24 mmol/L 20 mmol/L Anion Gap 14.0 mmol/L 15.0 mmol/L Blood Urea Nitrogen 13 mg/dl 17 mg/dl Creatinine 0.58 mg/dl 0.44 mg/dl Est Creatinine Clear Calc Drug Dose 74.1 ml/min 97.7 ml/min Estimated GFR () 103.8 113.6 Estimated GFR (Non- 89.5 98.1 BUN/Creatinine Ratio 22.4 39.5 Random Glucose 117 mg/dl 141 mg/dl Osmolality 237 mOsm/kg Calcium Level 10.7 mg/dl 9.0 mg/dl Total Bilirubin 0.7 mg/dl Aspartate Amino Transf (AST/SGOT) 34 U/L Alanine Aminotransferase (ALT/SGPT) 42 U/L Alkaline Phosphatase 83 U/L Total Creatine Kinase 405 U/L 198 U/L Creatine Kinase MB 5.8 ng/ml 3.4 ng/ml Creatine Kinase MB Ratio 1.4 1.7 Troponin I < 0.015 ng/ml < 0.015 ng/ml Total Protein 6.9 gm/dl Albumin 3.9 gm/dl Globulin 3.0 gm/dl Albumin/Globulin Ratio 1.3 Thyroid Stimulating Hormone (TSH) 3.500 uIu/ml Urine Color YELLOW Urine Appearance CLOUDY Urine pH 7.5 Urine Specific [place] 1.007 Urine Protein TRACE Urine Glucose (UA) NEG Urine Ketones 1+ Urine Occult Blood TRACE Urine Nitrite NEG Urine Bilirubin NEG Urine Urobilinogen NEG Urine Leukocyte Esterase NEG Urine WBC (Auto) 1-5 /hpf Urine RBC (Auto) 0-4 /hpf Urine Hyaline Casts (Auto) 1-5 /lpf Urine Epithelial Cells (Auto) >30 /lpf Urine Bacteria (Auto) 2+ Urine Osmolality 364 mOms/kg Urine Random Sodium 64 mEq/L Hypersegmented Polys 1+ Echinocytes 1+ Phosphorus Level 3.3 mg/dl Magnesium Level 1.5 mg/dl Test 06/17/16 10:44 Arterial Blood pH 7.48 Arterial Blood Partial Pressure CO2 34 mmHg Arterial Blood Partial Pressure O2 61 mm/Hg Arterial Blood HCO3 24 mmol/L Arterial Blood Oxygen Saturation 91.2 % Arterial Blood Base Excess 1.1 mEq/L Arterial Blood Gas Delivery 2.5L Fred Test POS Medications Current Inpatient Medications Medications (Trade) Dose Ordered Sig/Garima Route Start Time Stop Time Status Last Admin Dose Admin Acetaminophen (Tylenol Tab) 650 mg Q4H PRN PO 06/16/16 22:15 07/16/16 22:14 Zolpidem Tartrate (Ambien Tab) 5 mg HSZ PRN PO 06/16/16 22:15 07/16/16 22:14 Nitroglycerin (Nitrostat Tab) 0.4 mg UD PRN SL 06/16/16 22:15 07/16/16 22:14 Albuterol (Ventolin Hfa Inhaler) 2 puffs QID PRN INH 06/16/16 22:15 07/16/16 22:14 Aspirin (Ecotrin Tab) 81 mg QPM PO 06/17/16 21:00 07/17/16 20:59 Budesonide/ Formoterol Fumarate (Symbicort 160/ 4.5 Inh) 120 puffs QAM INH 06/17/16 09:00 07/17/16 08:59 06/17/16 08:06 2 PUFFS Cholecalciferol (Vitamin D Tab) 5,000 inter.unit DAILY PO 06/17/16 09:00 07/17/16 08:59 06/17/16 08:06 5,000 INTER.UNIT Hydroxychloroquine Sulfate (Plaquenil Tab) 200 mg BID PO 06/17/16 09:00 07/17/16 08:59 06/17/16 09:27 200 MG Multivitamins (Multivitamin Tab) 1 tab QAM PO 06/17/16 09:00 07/17/16 08:59 06/17/16 08:05 1 TAB Lorazepam (Ativan Inj) 0.5 mg Q4H PRN IV 06/16/16 22:15 07/16/16 22:14 06/16/16 23:34 0.5 MG Diphenhydramine HCl 25 mg 25 mg Q4H PRN IV 06/16/16 22:15 07/16/16 22:14 Promethazine HCl/ Sodium Chloride (Phenergan Inj/ Nss 50ml) 50.5 ml @ 202 mls/hr Q4H PRN IV 06/16/16 22:15 07/16/16 22:14 Ondansetron HCl (Zofran Inj) 4 mg Q6H PRN IV 06/16/16 22:15 07/16/16 22:14 Ipratropium [place] (Atrovent 0.02% 0.5MG/2.5ML Neb) 0.5 mg Q2H PRN INH 06/16/16 23:00 07/16/16 22:59 Levalbuterol (Xopenex 1.25MG/ 0.5ML Neb) 1.25 mg Q2H PRN INH 06/16/16 23:00 07/16/16 22:59 Magnesium Oxide (Mag-Ox Tab) 400 mg BID PO 06/17/16 09:00 07/17/16 08:59 06/17/16 09:28 400 MG Potassium Chloride (Klor-Con Tab) 40 meq QAM PO 06/17/16 21:00 07/17/16 20:59 Tolvaptan (Samsca Tab) 15 mg TODAY@1130 ONCE PO 06/17/16 11:30 06/17/16 11:31 Assessment and Plan Assessment and Plan: 75y/o female admission day one for hyponatremia and hypoosmolality, likely due to SIADH, causing dizziness, weakness, and corresponding fall. Hyponatremia and hypoosmolality- The patient's lab values show a sodium 115, serum osmolality of 237, urine osmolality of 341, and a urine sodium of 64. These values show that the patient's hyponatremia is likely due to SIADH. We will continue to hold the patient's HCTZ/spironolactone. No IV fluids will be administered and the patient will be restricted in her fluid intake to 1.2-1.[address] Herring has been consulted and he recommended the use of Tolvaptan 15mg, which will be administered. Continue to monitor basic metabolic panel twice a day and trend the sodium values. The goal is to slowly raise the sodium levels. Hypokalemia- Continue to monitor. Will check arterial blood gas per Dr. Herring to see is hypok is a result of respiratory alkalosis. Abnormal EKG/bradycardia- The patient will continue to be monitored in the telemetry unit. Serial cardiac enzymes and an echo have been ordered. Continue to administer Cardizem CD 120mg PO twice a day and ASA 81mg PO daily. Rheumatoid arthritis- Continue to administer hydroxychloroquine 200mg by mouth twice a day. Asthma- Continue to administer Simcor 160/4.5 INH QAM and Albuterol HFA 2 puffs four times a day as needed. Knee osteoarthritis- the patient was scheduled to a have a knee replacement today. This knee surgery will need to be rescheduled.
--- NOTE | 2016-06-17 13:20 | ECHOCARDIOGRAM REPORT ---
*NOTICE TO RECEIVING DEMOCRAT AGENCY This information is strictly Confidential and protected under [place] law. [place] law prohibits you from making any further disclosure of this information unless further disclosure is expressly permitted by the written consent of the person to whom it pertains or is authorized by law. A general authorization for the release of medical or other information is not sufficient for this purpose. Hospital accepts no responsibility if the information is made available to any other person, INCLUDING THE PATIENT. Interpretation Summary * Name: PATTY LIANG Study Date: 06/17/2016 11:10 AM BP: 120/73 mmHg * Patient Location: [facility] HR: 91 * : 1940 (M/d/yyyy) Gender: Female Height: 62 in * Age: 75 yrs Ethnicity: [place] Weight: 140 lb * Ordering Physician: Liu Perkins * Referring Physician: Self, Referred * Performed By: Yumiko Madison RCS * * Reason For Study: Hyponatremia, T-Wave Inversion V 1-3 * BSA: 1.6 m2 * -- Conclusions -- * Left ventricular systolic function is normal. * No regional wall motion abnormalities noted. * Ejection Fraction = 60-65%. * There is mild concentric left ventricular hypertrophy. * Grade I diastolic dysfunction, (abnormal relaxation pattern). * There is mild tricuspid regurgitation. Procedure Details * A complete two-dimensional transthoracic echocardiogram was performed (2D, M-mode, Doppler and color flow Doppler). Left Ventricle * The left ventricle is normal in size. * There is mild concentric left ventricular hypertrophy. * Left ventricular systolic function is normal. * Ejection Fraction = 60-65%. * No regional wall motion abnormalities noted. Right Ventricle * The right ventricular cavity size is normal (basal dimension <4.2 cm in right ventricular apical 4-chamber view). * The right ventricular systolic function is normal as assessed by tricuspid annular plane systolic excursion (TAPSE) (normal >1.5 cm). Atria * The left atrial size is normal. * Right atrial size is normal. * There is no evidence of atrial septal defect, but resolution does not allow assessment for a patent foramen ovale. Mitral Valve * The mitral valve is grossly normal. * Significant mitral regurgitation is absent. Tricuspid Valve * The tricuspid valve is not well visualized, but is grossly normal. * There is mild tricuspid regurgitation. * Right ventricular systolic pressure is elevated at 30-40mmHg. Aortic Valve * The aortic valve is not well visualized. * The aortic valve opens well. * No hemodynamically significant valvular aortic stenosis. * There is no significant aortic regurgitation. Pulmonic Valve * The pulmonary valve is not well seen, but the Doppler examination is normal without significant regurgitation or stenosis. * Trace pulmonic valvular regurgitation. Great Vessels * The aortic root is normal size. * The pulmonary artery is not well visualized, but is probably normal size. Pericardium/Pleural * There is no pericardial effusion. Great Vessels * Normal inferior vena cava size and collapsability with sniff indicates a normal right atrial pressure of 3 mmHg Left Ventricular Diastolic Function * Grade I diastolic dysfunction, (abnormal relaxation pattern). MMode 2D Measurements and Calculations IVSd 10 cm IVSs 1.2 cm LVIDd 4.3 cm LVIDs 2.6 cm LVPWd 1.0 cm LVPWs 1.2 cm IVS/LVPW 0.96 FS 38.9 % EDV(Teich) 81.6 ml ESV(Teich) 24.8 ml EF(Teich) 69.7 % EDV(cubed) 77.8 ml ESV(cubed) 17.7 ml EF(cubed) 77.2 % % IVS thick 15.7 % % LVPW thick 10.9 % LV mass(C)d 144.9 grams LV mass(C)dI 88.2 grams/m\S\2 LV mass(C)s 84.8 grams LV mass(C)sI 51.6 grams/m\S\2 CO(Teich) 3.5 l/min CI(Teich) 2.1 l/min/m\S\2 SV(Teich) 56.9 ml SI(Teich) 34.6 ml/m\S\2 CO(cubed) 3.7 l/min CI(cubed) 2.3 l/min/m\S\2 SV(cubed) 60.1 ml SI(cubed) 36.6 ml/m\S\2 Ao root diam 3.1 cm Ao root area 7.6 cm\S\2 ACS 1.5 cm LA dimension 3.1 cm LA/Ao 1.0 LVAd ap4 26.9 cm\S\2 LVLd ap4 7.5 cm EDV(MOD-sp4) 80.0 ml LVAs ap4 15.3 cm\S\2 LVLs ap4 6.4 cm ESV(MOD-sp4) 32.0 ml EF(MOD-sp4) 60.0 % LVAd ap2 25.5 cm\S\2 LVLd ap2 8.0 cm EDV(MOD-sp2) 68.0 ml LVAs ap2 12.9 cm\S\2 LVLs ap2 6.6 cm ESV(MOD-sp2) 22.0 ml EF(MOD-sp2) 67.6 % CO(MOD-sp4) 3.0 l/min CI(MOD-sp4) 1.8 l/min/m\S\2 SV(MOD-sp4) 48.0 ml SI(MOD-sp4) 29.2 ml/m\S\2 CO(MOD-sp2) 2.9 l/min CI(MOD-sp2) 1.7 l/min/m\S\2 SV(MOD-sp2) 46.0 ml SI(MOD-sp2) 28.0 ml/m\S\2 Doppler Measurements and Calculations MV E max markus 60.5 cm/sec MV A max markus 102.6 cm/sec MV E/A 0.59 MV P1/2t max markus 70.5 cm/sec MV P1/2t 94.4 msec MVA(P1/2t) 2.3 cm\S\2 MV dec slope 218.8 cm/sec\S\2 MV dec time 0.35 sec Ao V2 max 170.4 cm/sec Ao max PG 11.6 mmHg Ao max PG (full) 7.2 mmHg LV V1 max PG 4.4 mmHg LV V1 max 105.3 cm/sec PA V2 max 123.5 cm/sec PA max PG 6.3 mmHg PI max markus 198.7 cm/sec PI max PG 15.8 mmHg PI dec slope 127.0 cm/sec\S\2 PI P1/2t 458.3 msec TR max markus 270.3 cm/sec
[2016-06-17 14:58] LABS: CKMB/CK RATIO 1.6 (0-3.0)
--- NOTE | 2016-06-17 15:46 | Family Medicine Progress Note ---
Progress Note Date of Service Jun 17, 2016. Subjective Pt evaluation today including: conversation w/ patient Ms. Zepeda reports her entire body hurts today, especially her left shoulder. She has some bruising on her face. She reports overall feeling tired and weak. Constitutional: + weakness, No fever Eyes: No worsening of vision ENT: No hearing loss Respiratory: No cough, No shortness of breath, No wheezing Cardiovascular: No chest pain Abdomen: No nausea, No pain Female : No dysuria All Other Systems: Reviewed and Negative Medications Current Inpatient Medications Medications (Trade) Dose Ordered Sig/Garima Route Start Time Stop Time Status Last Admin Dose Admin Acetaminophen (Tylenol Tab) 650 mg Q4H PRN PO 06/16/16 22:15 07/16/16 22:14 Zolpidem Tartrate (Ambien Tab) 5 mg HSZ PRN PO 06/16/16 22:15 07/16/16 22:14 Nitroglycerin (Nitrostat Tab) 0.4 mg UD PRN SL 06/16/16 22:15 07/16/16 22:14 Albuterol (Ventolin Hfa Inhaler) 2 puffs QID PRN INH 06/16/16 22:15 07/16/16 22:14 Aspirin (Ecotrin Tab) 81 mg QPM PO 06/17/16 21:00 07/17/16 20:59 Budesonide/ Formoterol Fumarate (Symbicort 160/ 4.5 Inh) 120 puffs QAM INH 06/17/16 09:00 07/17/16 08:59 06/17/16 08:06 2 PUFFS Cholecalciferol (Vitamin D Tab) 5,000 inter.unit DAILY PO 06/17/16 09:00 07/17/16 08:59 06/17/16 08:06 5,000 INTER.UNIT Hydroxychloroquine Sulfate (Plaquenil Tab) 200 mg BID PO 06/17/16 09:00 07/17/16 08:59 06/17/16 09:27 200 MG Multivitamins (Multivitamin Tab) 1 tab QAM PO 06/17/16 09:00 07/17/16 08:59 06/17/16 08:05 1 TAB Lorazepam (Ativan Inj) 0.5 mg Q4H PRN IV 06/16/16 22:15 07/16/16 22:14 06/16/16 23:34 0.5 MG Diphenhydramine HCl 25 mg 25 mg Q4H PRN IV 06/16/16 22:15 07/16/16 22:14 Promethazine HCl/ Sodium Chloride (Phenergan Inj/ Nss 50ml) 50.5 ml @ 202 mls/hr Q4H PRN IV 06/16/16 22:15 07/16/16 22:14 Ondansetron HCl (Zofran Inj) 4 mg Q6H PRN IV 06/16/16 22:15 07/16/16 22:14 Ipratropium [place] (Atrovent 0.02% 0.5MG/2.5ML Neb) 0.5 mg Q2H PRN INH 06/16/16 23:00 07/16/16 22:59 Levalbuterol (Xopenex 1.25MG/ 0.5ML Neb) 1.25 mg Q2H PRN INH 06/16/16 23:00 07/16/16 22:59 Magnesium Oxide (Mag-Ox Tab) 400 mg BID PO 06/17/16 09:00 07/17/16 08:59 06/17/16 09:28 400 MG Potassium Chloride (Klor-Con Tab) 40 meq QAM PO 06/17/16 21:00 07/17/16 20:59 Objective Vital Signs Date Time Temp Pulse Resp B/P Pulse Ox O2 Delivery O2 Flow Rate FiO2 06/17/16 11:43 Nasal Cannula 2.0 06/17/16 11:11 36.9 74 20 125/69 93 Nasal Cannula 2.0 06/17/16 09:08 94 Nasal Cannula 2.0 06/17/16 08:07 37.0 91 18 120/73 89 Nasal Cannula 2.0 06/17/16 08:00 Nasal Cannula 2.0 06/17/16 04:03 Room Air 06/17/16 03:40 36.5 69 16 136/78 92 Room Air 06/16/16 23:05 36.7 59 20 134/74 93 Room Air 06/16/16 22:16 56 06/16/16 22:15 57 16 130/67 93 Room Air 06/16/16 21:13 56 18 122/58 93 Room Air 06/16/16 19:57 56 16 132/78 95 Room Air 06/16/16 19:14 58 06/16/16 18:26 36.6 63 20 153/75 99 Room Air Physical Exam General Appearance: WD/WN, + mild distress Eyes: PERRL, + pertinent finding (left sided facial droop) Respiratory/Chest: lungs clear, normal breath sounds, no respiratory distress Cardiovascular: regular rate, rhythm, no murmur Abdomen: non tender, soft Extremities: non-tender, no pedal edema, + pertinent finding (bruising left thigh) Neurologic/Psychiatric: alert Skin: no rash Laboratory Results Last 24 Hours Test 06/16/16 19:05 06/16/16 20:06 06/17/16 01:00 06/17/16 06:45 White Blood Count 16.84 K/uL 24.66 K/uL Red Blood Count 4.25 M/uL 4.18 M/uL Hemoglobin 14.5 g/dL 14.0 g/dL Hematocrit 37.5 % 36.7 % Mean Corpuscular Volume 88.2 fL 87.8 fL Mean Corpuscular Hemoglobin 34.1 pg 33.5 pg Mean Corpuscular Hemoglobin Concent 38.7 g/dl 38.1 g/dl Platelet Count 261 K/uL 241 K/uL Mean Platelet Volume 9.5 fL Neutrophils (%) (Auto) 77.9 % 92.9 % Lymphocytes (%) (Auto) 10.0 % 4.5 % Monocytes (%) (Auto) 10.6 % 2.2 % Eosinophils (%) (Auto) 0.6 % 0.0 % Basophils (%) (Auto) 0.2 % 0.0 % Neutrophils # (Auto) 13.14 K/uL 22.88 K/uL Lymphocytes # (Auto) 1.68 K/uL 1.12 K/uL Monocytes # (Auto) 1.78 K/uL 0.55 K/uL Eosinophils # (Auto) 0.10 K/uL 0.00 K/uL Basophils # (Auto) 0.03 K/uL 0.01 K/uL RDW Standard Deviation 41.9 fL RDW Coefficient of Variation 13.1 % Immature Granulocyte % (Auto) 0.7 % 0.4 % Immature Granulocyte # (Auto) 0.11 K/uL 0.10 K/uL Red Blood Cell Morphology Unremarkable Prothrombin Time 10.6 SECONDS Prothromb Time International Ratio 1.0 Activated Partial Thromboplast Time 28.5 SECONDS Partial Thromboplastin Ratio 1.1 Sodium Level 112 mmol/L 115 mmol/L Potassium Level 3.4 mmol/L 3.0 mmol/L Chloride Level 74 mmol/L 80 mmol/L Carbon Dioxide Level 24 mmol/L 20 mmol/L Anion Gap 14.0 mmol/L 15.0 mmol/L Blood Urea Nitrogen 13 mg/dl 17 mg/dl Creatinine 0.58 mg/dl 0.44 mg/dl Est Creatinine Clear Calc Drug Dose 74.1 ml/min 97.7 ml/min Estimated GFR () 103.8 113.6 Estimated GFR (Non- 89.5 98.1 BUN/Creatinine Ratio 22.4 39.5 Random Glucose 117 mg/dl 141 mg/dl Osmolality 237 mOsm/kg Calcium Level 10.7 mg/dl 9.0 mg/dl Total Bilirubin 0.7 mg/dl Aspartate Amino Transf (AST/SGOT) 34 U/L Alanine Aminotransferase (ALT/SGPT) 42 U/L Alkaline Phosphatase 83 U/L Total Creatine Kinase 405 U/L 198 U/L Creatine Kinase MB 5.8 ng/ml 3.4 ng/ml Creatine Kinase MB Ratio 1.4 1.7 Troponin I < 0.015 ng/ml < 0.015 ng/ml Total Protein 6.9 gm/dl Albumin 3.9 gm/dl Globulin 3.0 gm/dl Albumin/Globulin Ratio 1.3 Thyroid Stimulating Hormone (TSH) 3.500 uIu/ml Urine Color YELLOW Urine Appearance CLOUDY Urine pH 7.5 Urine Specific [place] 1.007 Urine Protein TRACE Urine Glucose (UA) NEG Urine Ketones 1+ Urine Occult Blood TRACE Urine Nitrite NEG Urine Bilirubin NEG Urine Urobilinogen NEG Urine Leukocyte Esterase NEG Urine WBC (Auto) 1-5 /hpf Urine RBC (Auto) 0-4 /hpf Urine Hyaline Casts (Auto) 1-5 /lpf Urine Epithelial Cells (Auto) >30 /lpf Urine Bacteria (Auto) 2+ Urine Osmolality 364 mOms/kg Urine Random Sodium 64 mEq/L Hypersegmented Polys 1+ Echinocytes 1+ Phosphorus Level 3.3 mg/dl Magnesium Level 1.5 mg/dl Test 06/17/16 10:44 06/17/16 13:57 Arterial Blood pH 7.48 Arterial Blood Partial Pressure CO2 34 mmHg Arterial Blood Partial Pressure O2 61 mm/Hg Arterial Blood HCO3 24 mmol/L Arterial Blood Oxygen Saturation 91.2 % Arterial Blood Base Excess 1.1 mEq/L Arterial Blood Gas Delivery 2.5L Fred Test POS Total Creatine Kinase 152 U/L Creatine Kinase MB 2.5 ng/ml Creatine Kinase MB Ratio 1.6 Troponin I < 0.015 ng/ml Assessment and Plan 75 yo F admitted after a fall, found to have hyponatremia (baseline sodium around 125-130, 115 on admission) and hypo-osmolality, 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 Hyponatremia in setting of SIADH Will continue to check BMP twice daily, aiming for slow rise in sodium level Received IV fluids in ED. Will fluid restrict 1.2-1.5 liters per day. Appreciate Dr Herring's recommendations Started Tolvaptan 15mg. Hypokalemia/Hypomagnesemia KCL 40mEq PO tablets ABG showed respiratory alkalosis - will get a nocturnal pulse ox to evaluate further Mag Ox 400mg BID Leucocytosis No fever. Urine culture neg. Follow Rheumatoid arthritis Continue hydroxychloroquine 200mg BID Osteoarthritis of knee Postpone knee surgery which was today with Dr Cornell Asthma Continue Simcor inhaler daily and Albuterol QID PRN CODE STATUS: FULL VTE: Heparin Disposition: Telemetry Resident Tracking Resident Involvement: Resident Care Provided Care Provided: Adult Hospital Medicine Reviewed: Pt Seen/Exam by Me History feeling lethargic and tired. would like to be left alone to get some sleep Constitutional: denies: fever Respiratory: negative: short of breath Cardiovascular: denies chest pain General Appearance: no apparent distress Respiratory: no respiratory distress, decreased breath sounds (base) Cardiovascular: regular rate, rhythm Neurologic/Psychiatric: oriented x 3, other (somnolent - arousable) Skin Characteristics: warm/dry Assessment/Plan I have reviewed the medical record and performed a history and physical examination of this patient today. I have discussed the case with Dr. Small. The above note reflects my findings, conclusions, and recommendations.
[2016-06-17] MEDS: DICLOFENAC SOD 1% GEL 100 GM TUBE EXT SCH (17:54)
[2016-06-17] MEDS: ASPIRIN 81 MG ECTAB PO SCH (19:47)
[2016-06-17] MEDS: POTASSIUM CHLORIDE 20 MEQ TABCR PO SCH (19:47)
[2016-06-17] MEDS: HEPARIN SOD 5000 UNIT/0.5 ML CARP SQ SCH (19:49)
[2016-06-17] MEDS: LORAZEPAM 2 MG/ML 1 ML VIAL IV PRN (20:01)
[2016-06-17 20:26] LABS: BUN/CREATININE RATIO 29.8 (10-20); CALCIUM 8.7 mg/dl (8.5-10.1); CREATININE 0.58 mg/dl (0.60-1.20); POTASSIUM 3.6 mmol/L (3.5-5.1)
[2016-06-18] VITALS (10 sets, daily range): BP systolic 118–167; BP diastolic 60–82; PULSE 70–88; TEMP 36.4–38.2; O2SAT 84–96
[2016-06-18] MEDS: IPRATROPIUM BROMIDE NEB SOLN 0.02% 2.5 ML VIAL INH PRN ×3 (03:37→23:51)
[2016-06-18] MEDS: LEVALBUTEROL 1.25MG/0.5ML NEB INH PRN ×3 (03:37→23:51)
[2016-06-18] MEDS ORDERED: FUROSEMIDE 40 MG/4 ML VIAL ONE (03:55)
[2016-06-18] MEDS ORDERED: VANCOMYCIN INJ 1,000 MG in SODIUM CHLORIDE 0.9% 250ML 250 ML IV STA (03:56)
[2016-06-18] MEDS ORDERED: NURSING VERBAL MED ORDER ONE (04:00)
[2016-06-18] MEDS ORDERED: FUROSEMIDE INJ 40 MG in SYRINGE 0 ML IV STA (04:12)
[2016-06-18] MEDS ORDERED: FUROSEMIDE INJ 20 MG in SYRINGE 0 ML IV STA (04:13)
[2016-06-18 04:24] LABS: ARTERIAL BLD GAS O2 SATURATION 88.1 % (90-95); ARTERIAL BLOOD GAS BASE EXCESS -0.4 mEq/L (-9-1.8); ARTERIAL BLOOD GAS HCO3 23 mmol/L (19-24); ARTERIAL BLOOD GAS PO2 53 mm/Hg (80-95); ARTERIAL BLOOD GAS pH 7.45 (7.35-7.45)
[2016-06-18 04:25] LABS: ALLEN TEST POS (POS); O2 ADMINISTRATION 15L
[2016-06-18] MEDS ORDERED: PIPERACILL/TAZOBAC CONSULT ACTIVE PRN (04:30)
[2016-06-18] MEDS ORDERED: PIPERACILL/TAZOBAC IV 3.375 GM in DEXTROSE 5% 100ML IV ONE (04:30)
[2016-06-18] MEDS ORDERED: VANCOMYCIN CONSULT ACTIVE PRN (04:30)
[2016-06-18] MEDS ORDERED: VANCOMYCIN INJ 1,500 MG in SODIUM CHLORIDE 0.9% 500ML 500 ML IV SCH (04:30)
[2016-06-18 04:40] LABS: PARTIAL THROMBOPLASTIN RATIO 1.1
[2016-06-18 04:47] LABS: HEMATOCRIT 37.2 % (37-47); MEAN CELL VOLUME 90.1 fL (80-100); MEAN CORPUSCULAR HEMOGLOBIN 34.4 pg (25-34); MEAN CORPUSCULAR HGB CONC 38.2 g/dl (32-36); MEAN PLATELET VOLUME 9.3 fL (7.4-10.4); PLATELET COUNT 249 K/uL (130-400); RED BLOOD COUNT 4.13 M/uL (4.2-5.4); WHITE BLOOD COUNT 23.81 K/uL (4.8-10.8)
[2016-06-18 04:48] LABS: BUN/CREATININE RATIO 32.9 (10-20); CALCIUM 8.6 mg/dl (8.5-10.1); CREATININE 0.51 mg/dl (0.60-1.20); POTASSIUM 4.6 mmol/L (3.5-5.1)
[2016-06-18 05:04] LABS: BASO ABS # 0.01 K/uL (0-0.2); COMPLETE YES; ECHINOCYTES 1+; HYPERSEGMENTED POLYS 1+; IG% 0.4 %; LYMPH % 6.8 %; LYMPH ABS # 1.61 K/uL (1.2-3.4); MONO % 4.4 %; NEUT % 88.4 %
--- NOTE | 2016-06-18 05:50 | Progress Note ---
Progress Note Informed of progressive shortness of breath throughout the night During breathing treatment unable to maintain sats on NC and requiring 10 l of O2 through Venturimask Patient was found to have coarse breath sounds and crackles Stat CXR suspicious for aspiration pna RLL Bipap started Zosyn and Vanco Lasix 20 mg ABG, CMP, CBC
[2016-06-18] MEDS ORDERED: PIPERACILL/TAZOBAC IV 3.375 GM in DEXTROSE 5% 100ML 100 ML IV SCH ×2 (06:00→12:00)
--- NOTE | 2016-06-18 06:39 | DIAGNOSTIC IMAGING REPORT ---
CHEST ONE VIEW PORTABLE CLINICAL HISTORY: SOB dyspnea COMPARISON STUDY: 06/16/2016 FINDINGS: Potential developing bibasilar parenchymal infiltrates. Mid and upper lungs are considered clear. IMPRESSION: Probable developing bibasilar parenchymal infiltrates Electronically signed by: Emiliano Bolden M.D. 06/18/2016 6:38 AM Dictated Date/Time: 06/18/2016 6:37 AM
[2016-06-18 07:33] LABS: HEMATOCRIT 38.7 % (37-47); MEAN CELL VOLUME 90.2 fL (80-100); MEAN CORPUSCULAR HEMOGLOBIN 34.3 pg (25-34); MEAN PLATELET VOLUME 9.4 fL (7.4-10.4); PLATELET COUNT 252 K/uL (130-400); RED BLOOD COUNT 4.29 M/uL (4.2-5.4); WHITE BLOOD COUNT 23.76 K/uL (4.8-10.8)
[2016-06-18 07:44] LABS: COMPLETE YES; ECHINOCYTES 1+; IG% 0.5 %; LYMPH % 5.3 %; LYMPH ABS # 1.26 K/uL (1.2-3.4); MONO % 3.6 %; NEUT % 90.6 %
[2016-06-18 07:48] LABS: BUN/CREATININE RATIO 27.1 (10-20); CALCIUM 8.8 mg/dl (8.5-10.1); CREATININE 0.58 mg/dl (0.60-1.20); MAGNESIUM 1.8 mg/dl (1.8-2.4); POTASSIUM 4.1 mmol/L (3.5-5.1)
[2016-06-18] MEDS ORDERED: BISACODYL 10 MG SUPP PR STA (08:49)
[2016-06-18] MEDS: CHOLECALCIFEROL 1000 INTER.UNIT TAB PO SCH (09:00)
[2016-06-18] MEDS ORDERED: VANCOMYCIN INJ 1,000 MG in SODIUM CHLORIDE 0.9% 250ML 250 ML IV SCH (09:00)
[2016-06-18] MEDS: BUDESONIDE/FORMOTEROL FUMARATE 160/4.5 60 PUFFS/INHALER INH SCH (09:00)
[2016-06-18] MEDS: MULTIVITAMIN TAB PO SCH (09:00)
[2016-06-18] MEDS ORDERED: AZITHROMYCIN IV 500 MG in DEXTROSE 5% 250ML 250 ML IV ONE (09:36)
[2016-06-18] MEDS ORDERED: TOLVAPTAN TAB 15 MG TAB PO ONE (09:45)
[2016-06-18] MEDS: DICLOFENAC SOD 1% GEL 100 GM TUBE EXT SCH ×2 (09:48→20:48)
[2016-06-18] MEDS: PIPERACILL/TAZOBAC IV 3.375 GM in DEXTROSE 5% 100ML IV SCH ×2 (09:49→18:24)
[2016-06-18] MEDS: HEPARIN SOD 5000 UNIT/0.5 ML CARP SQ SCH ×2 (09:49→20:55)
--- NOTE | 2016-06-18 10:10 | Pharmacy Progress Note ---
Pharmacy Antibiotic Consult Date of Service: Jun 18, 2016. Pharmacy Dosing Scope Pharmacy is consulted to initiate vancomycin IV dosing therapy, order appropriate labs and adjust drug dose/frequency. Subjective The patient is a 75 year old female admitted on Jun 16, 2016 at 22:08 after a fall. Overnight, she became increasing short of breath and hypoxic. Chest x-ray demonstrated a possible aspiration pneumonia. She has been hospitalized almost 48 hours. Objective Height (Feet): 5 Height (Inches): 3.00 Weight (Kilograms): 61.500 Lab Results (24hrs): Laboratory Tests Test 06/17/16 19:25 06/18/16 04:11 06/18/16 06:55 BUN/Creatinine Ratio 29.8 32.9 27.1 Blood Urea Nitrogen 17 mg/dl 17 mg/dl 16 mg/dl Creatinine 0.58 mg/dl 0.51 mg/dl 0.58 mg/dl White Blood Count 23.81 K/uL 23.76 K/uL Red Blood Count 4.13 M/uL 4.29 M/uL Hemoglobin 14.2 g/dL 14.7 g/dL Hematocrit 37.2 % 38.7 % Mean Corpuscular Volume 90.1 fL 90.2 fL Mean Corpuscular Hemoglobin 34.4 pg 34.3 pg Mean Corpuscular Hemoglobin Concent 38.2 g/dl 38.0 g/dl Platelet Count 249 K/uL 252 K/uL Mean Platelet Volume 9.3 fL 9.4 fL Neutrophils (%) (Auto) 88.4 % 90.6 % Lymphocytes (%) (Auto) 6.8 % 5.3 % Monocytes (%) (Auto) 4.4 % 3.6 % Eosinophils (%) (Auto) 0.0 % 0.0 % Basophils (%) (Auto) 0.0 % 0.0 % Neutrophils # (Auto) 21.05 K/uL 21.53 K/uL Lymphocytes # (Auto) 1.61 K/uL 1.26 K/uL Monocytes # (Auto) 1.05 K/uL 0.86 K/uL Eosinophils # (Auto) 0.00 K/uL 0.00 K/uL Basophils # (Auto) 0.01 K/uL 0.00 K/uL Recent Pertinent Medications Item Value Date Time Azithromycin 500 255 ml @ 125 mls/hr 06/19/16 0900 mg/Dextrose DAILY/IV Piperacillin Sod/ 115 ml @ 28.75 mls/hr 06/18/16 1000 Tazobactam Sod Q8H/IV 06/18/16 0949 3.375 gm/Dextrose Assessment & Plan Loading dose: vancomycin 1500 (23.5 mg/kg) mg IV X 1 dose then: vancomycin 900 mg IV every 12 hours (population pharmacokinetics suggest a half-life of 11.3 hr with an elimination constant of 0.061 hr-1). Goal peak level estimate: between 35 - 40 mcg/mL. Goal trough level estimate: between 15 - 20 mcg/mL (due to possible indication of pneumonia). Trough has been ordered for: . A MRSA nasal swab has also been ordered. Pharmacy will continue to follow and will adjust dose/frequency as necessary. Thank you
--- NOTE | 2016-06-18 10:20 | PULMONARY CONSULTATION ---
DATE OF CONSULTATION: 06/18/2016 The patient is a 75-year-old female who was admitted to the hospital after falling in the shower and Dr. Small has asked me to evaluate the patient for hypoxemia. She is followed by Dr. Herring, and also has a history of asthma, is followed by Dr. Nair. I reviewed the outpatient notes from Dr. Nair and Dr. Herring. She had PFTs done in January of last year that showed mild obstruction with full volume loop suggestive of mild obstruction, especially at lower lung volumes. She has a history of multiple pulmonary nodules with granulomas consistent with rheumatoid arthritis and some atelectatic changes at the lung bases. She fell in home in the bathroom and sustained some injuries to her face and head. 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 At the time of admission, her oxygen saturation was 99% on room air, that was at 1826 on 06/16/2016. Over the last 2 days, she has developed some hypoxemia with oxygen saturation of 89% on 2 liters yesterday at 0800 and then 88% on room air at 8:00 p.m. last night and 84% on 6 liters this morning at 0338. She has been placed on double antimicrobial agents. Chest x-ray reveals basilar infiltrate. She has also had a fever up to 38.2 this morning at 0729 and nonproductive cough. She was placed on a Drager system with adequate numbers with a PEEP of 5. Her oxygen saturation now is 93% on 100% FiO2 with BiPAP. She denies aspiration. Has not had any epistaxis, has not had any chest pain or cough or sputum production, has not been ill prior to being admitted to the hospital. She states her activities have been fairly good at home and she was actually scheduled to have a knee replacement done. She states she had smoked in the remote past. According to the records, she has never been a tobacco user and she has a history of asthma. REVIEW OF SYSTEMS: Otherwise at this point has been unremarkable. There was no evidence of any aspiration when she fell in the shower. 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 SOCIAL HISTORY: She states she smoked about half a pack a day for about 15 years and quit many years ago. From an occupational standpoint, she worked here in the hospital. Has not had any industrial exposures. ALLERGIES: SHE HAS MULTIPLE ALLERGIES THAT ARE NOTED IN THE RECORD. CIPRO CAUSED APPARENT SYNCOPE AND PSYCHOSIS. MEDICATIONS: Noted as an outpatient. She is on Plaquenil and tolerates that well, has been on that for a number of years. PHYSICAL EXAMINATION: VITAL SIGNS: Her respiratory rate is 22, blood pressure is 152/79, temperature is 38.2 this morning, it is now 1009 and temperature is down, pulse is 80 and regular, oxygen saturation is 93% on Drager system BiPAP. HEENT: Nose: Posterior pharynx is normal. She has some ecchymotic areas under both eyes, especially the left eye. Mild conjunctivitis of the right eye is noted. No adenopathy is noted anywhere. Expansion of the thorax actually is fairly good with deep inspiration. Changes consistent with erosive RA are noted in the hands with no nodules noted. No adenopathy is noted. Expansion of the thorax is good. I do not detect any fremitus. HEART: Regular rate and rhythm. No murmurs are auscultated. LUNGS: Reveal crackles and rales at both lung bases. ABDOMEN: Soft, nontender. EXTREMITIES: She has no cyanosis, clubbing or edema. The electrocardiogram revealed sinus bradycardia with premature atrial contractions with aberrant beat and anterior ischemic changes. These ischemic changes appear to be new when compared to previous EKG of 02/17/2016 when she had a normal sinus rhythm with considerable tremor artifact, left posterior fascicular block, and nonspecific changes. The urine culture was unremarkable. White count has gone from 16.8 to 23.76 with a hemoglobin of 14.7, hematocrit of 38.7%. She did have an echocardiogram performed yesterday that reveals left ventricular ejection fraction of 60-65% with grade 1 diastolic dysfunction, mild concentric left ventricular hypertrophy, and mild tricuspid regurgitation. The right-sided structures looked good. Blood gas revealed pH 7.45, pCO2 of 33, pO2 of 53, suggesting a respiratory alkalosis which is mild with profound hypoxemia. Sodium is 119 with CO2 of 20. Glucose is 139. Liver function studies are unremarkable. The troponin is unremarkable as well. Coagulation profile was unremarkable. Urinalysis was essentially unremarkable. Urine osmolality of 364, random urine sodium of 64. Chest x-ray shows basilar atelectasis versus infiltrative processes and changes consistent with some mild hyperinflation as well. IMPRESSION: 1. Bibasilar pneumonia. Should be considered a hospital-acquired pneumonia since she was here for 24 hours before she developed the pneumonia. SHE HAS MULTIPLE ALLERGIES TO MEDICATIONS and so I believe the Zosyn and vancomycin should cover this. 2. Respiratory insufficiency with profound hypoxemia with mild respiratory alkalosis. She seems to be stable on the Drager system now on BiPAP with high-flow O2. 3. Asthma. 4. Multiple pulmonary nodules, probably related to rheumatoid arthritis. 5. Rheumatoid arthritis. 6. Profound hyponatremia with a serum osmolality of 237 and increasing urine osmolality which is inappropriate. This is improved. Serum sodium was 112 on 06/16/2016, it was up to 117 last night at 6:30, it is up to 119 this morning at 0700. RECOMMENDATIONS: 1. Continue her present antibiotics. Continue the Drager system. She is a full resuscitation. If her hypoxemia worsens, she would develop CO2 retention or increase her respiratory rate from her baseline right now. I would transfer her down to the intensive care unit with the thought that she may need to be intubated. 2. Check a sputum Gram stain and C\T\S. At the present time, she does not have any significant sputum production. 3. Continue on the Symbicort 160/4.5 two puffs b.i.d. and use albuterol or Xopenex by way of nebulizer 4 times a day and q. 4 hours p.r.n. That may help to enhance mucociliary clearance. She is not wheezing at the present time and does not need IV or p.o. steroids for right now. She also appears to have myocardial ischemia by EKG and a cardiology evaluation will be recommended. Thanks for asking me to evaluate Ms. Zepeda and I will be glad to follow along with you during her hospital stay.
--- NOTE | 2016-06-18 10:28 | Family Medicine Progress Note ---
Progress Note Date of Service Jun 18, 2016. Subjective Pt evaluation today including: conversation w/ patient Overnight events noted - pt became more hypoxic, was placed on BiPAP and started on vanc and zosyn for presumed aspiration. This morning when I saw her she was angry with the BiPAP mask and said she wnated it off. She said she would not want to be intubated if things got worse. She reports she is constipated. Constitutional: No chills, No fever ENT: No hearing loss Respiratory: + dyspnea at rest, + dyspnea on exertion, + shortness of breath , + sputum, + wheezing, No cough Abdomen: No nausea, No pain All Other Systems: Reviewed and Negative Medications Current Inpatient Medications Medications (Trade) Dose Ordered Sig/Garima Route Start Time Stop Time Status Last Admin Dose Admin Acetaminophen (Tylenol Tab) 650 mg Q4H PRN PO 06/16/16 22:15 07/16/16 22:14 Zolpidem Tartrate (Ambien Tab) 5 mg HSZ PRN PO 06/16/16 22:15 07/16/16 22:14 Nitroglycerin (Nitrostat Tab) 0.4 mg UD PRN SL 06/16/16 22:15 07/16/16 22:14 Albuterol (Ventolin Hfa Inhaler) 2 puffs QID PRN INH 06/16/16 22:15 07/16/16 22:14 Aspirin (Ecotrin Tab) 81 mg QPM PO 06/17/16 21:00 07/17/16 20:59 06/17/16 19:47 81 MG Budesonide/ Formoterol Fumarate (Symbicort 160/ 4.5 Inh) 120 puffs QAM INH 06/17/16 09:00 07/17/16 08:59 06/17/16 08:06 2 PUFFS Cholecalciferol (Vitamin D Tab) 5,000 inter.unit DAILY PO 06/17/16 09:00 07/17/16 08:59 06/17/16 08:06 5,000 INTER.UNIT Hydroxychloroquine Sulfate (Plaquenil Tab) 200 mg BID PO 06/17/16 09:00 07/17/16 08:59 06/17/16 19:47 200 MG Multivitamins (Multivitamin Tab) 1 tab QAM PO 06/17/16 09:00 07/17/16 08:59 06/17/16 08:05 1 TAB Lorazepam (Ativan Inj) 0.5 mg Q4H PRN IV 06/16/16 22:15 07/16/16 22:14 06/17/16 20:01 0.5 MG Diphenhydramine HCl 25 mg 25 mg Q4H PRN IV 06/16/16 22:15 07/16/16 22:14 Promethazine HCl/ Sodium Chloride (Phenergan Inj/ Nss 50ml) 50.5 ml @ 202 mls/hr Q4H PRN IV 06/16/16 22:15 07/16/16 22:14 Ondansetron HCl (Zofran Inj) 4 mg Q6H PRN IV 06/16/16 22:15 07/16/16 22:14 Ipratropium Hurst (Atrovent 0.02% 0.5MG/2.5ML Neb) 0.5 mg Q2H PRN INH 06/16/16 23:00 07/16/16 22:59 06/18/16 03:37 0.5 MG Levalbuterol (Xopenex 1.25MG/ 0.5ML Neb) 1.25 mg Q2H PRN INH 06/16/16 23:00 07/16/16 22:59 06/18/16 03:37 1.25 MG Magnesium Oxide (Mag-Ox Tab) 400 mg BID PO 06/17/16 09:00 07/17/16 08:59 06/17/16 19:47 400 MG Potassium Chloride (Klor-Con Tab) 40 meq QAM PO 06/17/16 21:00 07/17/16 20:59 06/17/16 19:47 40 MEQ Heparin Sodium (Porcine) (Heparin Sq 5000 Unit/0.5ml) 5,000 unit Q12 SQ 06/17/16 21:00 07/17/16 20:59 06/18/16 09:49 5,000 UNIT Diclofenac Sodium 1 appln 1 appln BID EXT 06/17/16 21:00 07/17/16 20:59 06/18/16 09:48 1 APPLN Piperacillin Sod/ Tazobactam Sod/ Dextrose (Zosyn Iv/D5 100ml) 115 ml @ 28.75 mls/ hr Q8H IV 06/18/16 10:00 06/25/16 09:59 06/18/16 09:49 28.75 MLS/HR Piperacillin Sod/ Tazobactam Sod (Consult) 1 ea UD PRN N/A 06/18/16 04:30 07/18/16 04:29 Vancomycin HCl 1 ea 1 ea UD PRN N/A 06/18/16 04:30 07/18/16 04:29 Azithromycin 500 mg/Dextrose 255 ml @ 125 mls/hr DAILY IV 06/19/16 09:00 06/21/16 08:59 Azithromycin 500 mg/Dextrose 255 ml @ 125 mls/hr 0936 ONCE IV 06/18/16 09:36 06/18/16 11:38 Vancomycin HCl/ Sodium Chloride (Vancomycin Inj/ Nss 250ml) 268 ml @ 125 mls/hr Q12H IV 06/18/16 17:00 06/25/16 16:59 Objective Vital Signs Date Time Temp Pulse Resp B/P Pulse Ox O2 Delivery O2 Flow Rate FiO2 06/18/16 08:00 Nasal Cannula 2.0 06/18/16 07:29 38.2 76 20 152/79 93 BiPAP 06/18/16 04:24 75 95 100 06/18/16 04:24 70 128/77 96 BiPAP 06/18/16 04:03 BiPAP 12.0 100 06/18/16 03:38 76 22 84 Nasal Cannula 6.0 06/18/16 03:25 36.4 74 26 167/78 86 Nasal Cannula 4.0 06/18/16 00:04 Nasal Cannula 3.0 06/17/16 23:55 93 Nasal Cannula 3.0 06/17/16 23:10 36.7 73 18 140/85 89 Nasal Cannula 2.0 06/17/16 21:15 94 2.0 06/17/16 20:04 37.6 72 18 143/74 88 Room Air 06/17/16 20:03 Nasal Cannula 2.0 06/17/16 16:00 Nasal Cannula 2.0 06/17/16 15:44 36.9 77 18 140/70 92 06/17/16 11:43 Nasal Cannula 2.0 06/17/16 11:11 36.9 74 20 125/69 93 Nasal Cannula 2.0 Physical Exam General Appearance: WD/WN, no apparent distress Eyes: normal inspection ENT: hearing grossly normal Neck: supple, no JVD Respiratory/Chest: + pertinent finding (Crackles RLL) Cardiovascular: regular rate, rhythm, no murmur Abdomen: normal bowel sounds, non tender, soft Extremities: non-tender, no pedal edema Neurologic/Psychiatric: alert, normal mood/affect, oriented x 3 Skin: no rash Laboratory Results Last 24 Hours Test 06/17/16 10:44 06/17/16 13:57 06/17/16 19:25 06/18/16 04:11 Arterial Blood pH 7.48 7.45 Arterial Blood Partial Pressure CO2 34 mmHg 33 mmHg Arterial Blood Partial Pressure O2 61 mm/Hg 53 mm/Hg Arterial Blood HCO3 24 mmol/L 23 mmol/L Arterial Blood Oxygen Saturation 91.2 % 88.1 % Arterial Blood Base Excess 1.1 mEq/L -0.4 mEq/L Arterial Blood Gas Delivery 2.5L 15L Fred Test POS POS Total Creatine Kinase 152 U/L Creatine Kinase MB 2.5 ng/ml Creatine Kinase MB Ratio 1.6 Troponin I < 0.015 ng/ml Sodium Level 117 mmol/L 118 mmol/L Potassium Level 3.6 mmol/L 4.6 mmol/L Chloride Level 81 mmol/L 85 mmol/L Carbon Dioxide Level 24 mmol/L 21 mmol/L Anion Gap 11.0 mmol/L 12.0 mmol/L Blood Urea Nitrogen 17 mg/dl 17 mg/dl Creatinine 0.58 mg/dl 0.51 mg/dl Est Creatinine Clear Calc Drug Dose 74.1 ml/min 84.3 ml/min Estimated GFR () 103.8 108.3 Estimated GFR (Non- 89.5 93.4 BUN/Creatinine Ratio 29.8 32.9 Random Glucose 123 mg/dl 128 mg/dl Calcium Level 8.7 mg/dl 8.6 mg/dl White Blood Count 23.81 K/uL Red Blood Count 4.13 M/uL Hemoglobin 14.2 g/dL Hematocrit 37.2 % Mean Corpuscular Volume 90.1 fL Mean Corpuscular Hemoglobin 34.4 pg Mean Corpuscular Hemoglobin Concent 38.2 g/dl Platelet Count 249 K/uL Mean Platelet Volume 9.3 fL Neutrophils (%) (Auto) 88.4 % Lymphocytes (%) (Auto) 6.8 % Monocytes (%) (Auto) 4.4 % Eosinophils (%) (Auto) 0.0 % Basophils (%) (Auto) 0.0 % Neutrophils # (Auto) 21.05 K/uL Lymphocytes # (Auto) 1.61 K/uL Monocytes # (Auto) 1.05 K/uL Eosinophils # (Auto) 0.00 K/uL Basophils # (Auto) 0.01 K/uL RDW Standard Deviation 43.3 fL RDW Coefficient of Variation 13.2 % Immature Granulocyte % (Auto) 0.4 % Immature Granulocyte # (Auto) 0.09 K/uL Hypersegmented Polys 1+ Echinocytes 1+ Prothrombin Time 11.0 SECONDS Prothromb Time International Ratio 1.0 Activated Partial Thromboplast Time 29.6 SECONDS Partial Thromboplastin Ratio 1.1 Lactic Acid Level 0.6 mmol/L Total Bilirubin 0.6 mg/dl Aspartate Amino Transf (AST/SGOT) 17 U/L Alanine Aminotransferase (ALT/SGPT) 34 U/L Alkaline Phosphatase 79 U/L Pro-B-Type Natriuretic Peptide 323 pg/ml Total Protein 6.3 gm/dl Albumin 3.2 gm/dl Globulin 3.1 gm/dl Albumin/Globulin Ratio 1.0 Test 06/18/16 06:55 06/18/16 09:34 White Blood Count 23.76 K/uL Red Blood Count 4.29 M/uL Hemoglobin 14.7 g/dL Hematocrit 38.7 % Mean Corpuscular Volume 90.2 fL Mean Corpuscular Hemoglobin 34.3 pg Mean Corpuscular Hemoglobin Concent 38.0 g/dl Platelet Count 252 K/uL Mean Platelet Volume 9.4 fL Neutrophils (%) (Auto) 90.6 % Lymphocytes (%) (Auto) 5.3 % Monocytes (%) (Auto) 3.6 % Eosinophils (%) (Auto) 0.0 % Basophils (%) (Auto) 0.0 % Neutrophils # (Auto) 21.53 K/uL Lymphocytes # (Auto) 1.26 K/uL Monocytes # (Auto) 0.86 K/uL Eosinophils # (Auto) 0.00 K/uL Basophils # (Auto) 0.00 K/uL RDW Standard Deviation 43.0 fL RDW Coefficient of Variation 13.2 % Immature Granulocyte % (Auto) 0.5 % Immature Granulocyte # (Auto) 0.11 K/uL Echinocytes 1+ Sodium Level 119 mmol/L Potassium Level 4.1 mmol/L Chloride Level 85 mmol/L Carbon Dioxide Level 20 mmol/L Anion Gap 15.0 mmol/L Blood Urea Nitrogen 16 mg/dl Creatinine 0.58 mg/dl Est Creatinine Clear Calc Drug Dose 68.2 ml/min Estimated GFR () 103.8 Estimated GFR (Non- 89.5 BUN/Creatinine Ratio 27.1 Random Glucose 139 mg/dl Calcium Level 8.8 mg/dl Magnesium Level 1.8 mg/dl Assessment and Plan 75 yo F admitted after a fall, found to have hyponatremia (baseline sodium around 125-130, 115 on admission) and hypo-osmolality, 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 Now with new pneumonia (community acquired vs aspiration) Acute hypoxic respiratory failure, now on BiPAP Likely from pneumonia ABG completed - metabolic acidosis with resp alkalosis Continue BiPAP as tolerated. Mask changed and on r/v she seemed more comfortable. 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 Will fluid restrict 1.2-1.5 liters per day. Appreciate Dr Herring's recommendations Further dose of Tolvaptan this morning. Right lower lobe pneumonia - HCAP/CAP/Aspiration Fever, wbc elevation, respiratory failure Pulmonary consulted Started on Vanc and Zosyn - continue. Add zithromax. Potential aspiration pnuemonia Speech eval Hypokalemia/Hypomagnesemia Received KCL 40mEq PO tablets, K+ normalized today (4.1) Received Mag Ox 400mg BID, Mag normalized today (1.8) Leucocytosis Urine culture negative Likely from pneumonia Rheumatoid arthritis Continue hydroxychloroquine 200mg BID Osteoarthritis of knee Postpone knee surgery which was today with Dr Cornell Voltaren gel/Tylenol Asthma Continue Simcor inhaler daily and Albuterol QID PRN CODE STATUS: FULL VTE: Heparin Disposition: Telemetry Resident Tracking Resident Involvement: Resident Care Provided Care Provided: Adult Hospital Medicine Reviewed: Pt Seen/Exam by Me History became hypoxic last night. was put on bipap. labs done and started on IV abx. received one dose of lasix also stayed on bipap in the morning. alert - asking to get laxatives Constitutional: denies: fever Respiratory: positive: short of breath Cardiovascular: denies chest pain Gastrointestinal/Abdominal: negative: abdominal pain General Appearance: other (tolerating cpap) Respiratory: decreased breath sounds, crackles, other (on bipap) Cardiovascular: regular rate, rhythm Neurologic/Psychiatric: alert, oriented x 3 Skin Characteristics: warm/dry Assessment/Plan I have reviewed the medical record and performed a history and physical examination of this patient today. I have discussed the case with Dr. Small. The above note reflects my findings, conclusions, and recommendations.
--- NOTE | 2016-06-18 10:28 | NEPHROLOGY PROGRESS NOTE ---
DATE: 06/18/2016 SUBJECTIVE: Ms. Zepeda had a difficult night. She developed progressive hypoxemia with oxygen saturation as low as 84%. She was placed on BiPAP and appears to have stabilized at least with regard to her oxygenation. She remains quite lethargic. She has had a weak and ineffective cough. Other than weakness, she has no complaints other than her frustration and discomfort associated with BiPAP. She has had no specific focal neurologic symptoms or complaints. OBJECTIVE: GENERAL: On physical exam when seen by me, she appeared again somewhat lethargic, but easily aroused. She was wearing her BiPAP. VITAL SIGNS: Her temperature was 38.2 degrees axillary, her blood pressure 152/79, her pulse 76 and regular, respiratory rate 20 and her pulse ox 93% on BiPAP. SKIN: Shows normal skin turgor. She has no rash or infiltrative skin disease. She has some residual ecchymoses on her face, particularly beneath the left eye. She has scars from prior surgical procedures. LYMPHATICS: Show no palpable lymphadenopathy. HEAD: Normal. EYES: Grossly normal. The ocular fundi were not examined. EARS, NOSE, MOUTH AND THROAT: Unremarkable. Her oral mucous membranes are moist. NECK: Supple. She has no jugular venous distention, carotid bruit or thyromegaly. CHEST: Shows some scattered wheezes and rhonchi. Breath sounds are somewhat diminished at the bases. CARDIAC: Shows a regular rhythm. S1 and S2 are normal. There is a soft systolic murmur at the base. ABDOMEN: Shows a left upper quadrant ventral hernia. The abdomen is nontender. She has scars from prior surgical procedures. Bowel sounds are present. EXTREMITIES: Showed changes of deforming rheumatoid arthritis, particularly in her hands and her feet. 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 Peripheral pulses are difficult to feel, but she has good capillary refill in her fingers and toes. NEUROLOGIC: Again shows her to be lethargic, but easily aroused. 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 PERTINENT LABORATORY WORK: From today shows a white count of 23,760 with 90.6% neutrophils, 5.3% lymphocytes and 3.6% monocytes. She has no eosinophils. Her hemoglobin is 14.7, her hematocrit 38.7 and her platelet count is 252,000. Arterial blood gases from today show a pH of 7.45, her pCO2 was 33 and her pO2 was only 53. Her oxygen saturation was 88.1%. Of note as a fact that yesterday, her arterial blood pH of 7.48 with a pCO2 of 34 and a pO2 of 61. Clinical chemistry from today showed a sodium up to 119, her potassium is up to 4.1, chlorides are up to 85, and total CO2 remains at 20. Her anion gap measures 15, but she is mildly hypoalbuminemic, so it may even be higher consistent with a metabolic acidosis. Her BUN is 16 and her creatinine is 0.58. Her serum calcium is 8.8 and her serum magnesium is 1.8. Her chest x-ray done earlier today shows evidence of developing bibasilar pulmonary infiltrates. ASSESSMENT: Purely from the standpoint of her acid base fluid and electrolyte status, her hyponatremia is improved. Her serum potassium has improved with potassium supplementation, but also with an apparent decrease in her arterial blood pH. She continues to have an anion gap consistent with metabolic acidosis, probably the result of an infection. At the current time, it certainly appears as if her lungs are the source of that infection. She has been immunosuppressed. She has been seen by pulmonary. Her urine culture was negative so that does not appear to be the source of any sepsis. Additionally, her low pCO2 and high blood pH in the face of metabolic acidosis is consistent with a certain degree of hyperventilation probably resulting from an apparent pneumonia superimposed on her history of asthma. RECOMMENDATIONS: I discussed with Dr. Frias and house staff as well as Dr. Harvey, who saw her in pulmonary consultation. She will be placed on broad spectrum antibiotics. She may need to remain on BiPAP intermittently, although at the current time, she has been switched back to nasal oxygen. From the standpoint of her hyponatremia, I think it would not be inappropriate to give her another dose of tolvaptan 15 mg today. Continue to restrict her fluid intake to 8376-2910 mL daily. No other immediate recommendations. I did discuss with the house staff to get a serum lactate simply to support a diagnosis of a metabolic acidosis presumably from infection.
[2016-06-18] MEDS: HYDROXYCHLOROQUINE SULFATE 200 MG TAB PO SCH ×2 (10:43→20:47)
[2016-06-18] MEDS: MAGNESIUM OXIDE 400 MG TAB PO SCH ×2 (10:44→20:47)
[2016-06-18] MEDS: POTASSIUM CHLORIDE 20 MEQ TABCR PO SCH (10:44)
[2016-06-18] MEDS ORDERED: VANCOMYCIN INJ 900 MG in SODIUM CHLORIDE 0.9% 250ML 250 ML IV SCH (17:00)
[2016-06-18 19:51] LABS: BUN/CREATININE RATIO 27.4 (10-20); CALCIUM 8.6 mg/dl (8.5-10.1); CREATININE 0.61 mg/dl (0.60-1.20)
[2016-06-18 19:53] LABS: POTASSIUM 4.9 mmol/L (3.5-5.1)
[2016-06-18] MEDS: ASPIRIN 81 MG ECTAB PO SCH (20:47)
[2016-06-19] MEDS: PIPERACILL/TAZOBAC IV 3.375 GM in DEXTROSE 5% 100ML IV SCH ×3 (02:05→18:02)
[2016-06-19 03:05] VITALS: BP 114/71; PULSE 76; TEMP 36.5; O2SAT 96
[2016-06-19 07:17] LABS: BASO ABS # 0.01 K/uL (0-0.2); COMPLETE YES; IG% 0.4 %; LYMPH % 7.3 %; LYMPH ABS # 1.54 K/uL (1.2-3.4); MEAN CELL VOLUME 92.1 fL (80-100); MEAN CORPUSCULAR HGB CONC 36.9 g/dl (32-36); MEAN PLATELET VOLUME 9.5 fL (7.4-10.4); MONO % 5.7 %; NEUT % 86.6 %; PLATELET COUNT 235 K/uL (130-400); RED BLOOD COUNT 3.91 M/uL (4.2-5.4); WHITE BLOOD COUNT 21.24 K/uL (4.8-10.8)
[2016-06-19 07:30] VITALS: BP 122/65; PULSE 70; TEMP 37.1; O2SAT 95
--- NOTE | 2016-06-19 07:33 | PULMONARY PROGRESS NOTE ---
DATE: 06/19/2016 The patient states she is weak this morning. She denies cough or chest pain, just states she feels washed out. According to nurses' notes she slept fairly well. Her heart rate has been in the 60s, oxygen saturations have been greater than 95% on 4 liters and she did have some expiratory wheezing according to the note from midnight. She has a moist nonproductive cough. Is on 1500 mL fluid restriction. Minaya catheter is intact. She does not care for the Ventimask; nasal cannula is preferred. She denies any headaches. PHYSICAL EXAMINATION: VITAL SIGNS: Stable. Blood pressure 114/71, her pulse is 70 and regular, respiratory rate 18. She is afebrile, oxygen saturation 96% on 4 liters. 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 No subcutaneous emphysema is noted. NECK: No neck vein distention or HJR. HEART: Regular rate and rhythm. LUNGS: Reveal very minimal wheezing right at the end of expiration with a few crackles at the bases, especially at the left base posterior. No fremitus is noted. ABDOMEN: Soft, nontender. She has no cyanosis, clubbing or edema. CBC, chemistry profile are pending. IMPRESSION: 1. Bibasilar pneumonia with hypoxemia. 2. Asthma. 3. Rheumatoid arthritis with pulmonary nodules, chronic. RECOMMENDATIONS: 1. Continue with her present medications including the Zosyn and Zithromax. 2. Continue on the Symbicort 160/4.5 two puffs b.i.d. and Xopenex with Atrovent 4 times a day. The Albuterol could be discontinued if she is on Xopenex. 3. Incentive spirometry. 4. Increase activity. Overall, she seems to be stable today.
[2016-06-19 07:41] LABS: BUN/CREATININE RATIO 30.2 (10-20); CALCIUM 8.8 mg/dl (8.5-10.1); CREATININE 0.71 mg/dl (0.60-1.20); MAGNESIUM 2.2 mg/dl (1.8-2.4); POTASSIUM 4.5 mmol/L (3.5-5.1)
[2016-06-19] MEDS: HYDROXYCHLOROQUINE SULFATE 200 MG TAB PO SCH ×2 (08:34→21:00)
[2016-06-19] MEDS: CHOLECALCIFEROL 1000 INTER.UNIT TAB PO SCH (08:34)
[2016-06-19] MEDS: POTASSIUM CHLORIDE 20 MEQ TABCR PO SCH (08:35)
[2016-06-19] MEDS: MAGNESIUM OXIDE 400 MG TAB PO SCH ×2 (08:35→21:15)
[2016-06-19] MEDS: MULTIVITAMIN TAB PO SCH (08:35)
[2016-06-19] MEDS: BUDESONIDE/FORMOTEROL FUMARATE 160/4.5 60 PUFFS/INHALER INH SCH (08:36)
[2016-06-19] MEDS: DICLOFENAC SOD 1% GEL 100 GM TUBE EXT SCH ×2 (08:37→21:00)
[2016-06-19] MEDS: HEPARIN SOD 5000 UNIT/0.5 ML CARP SQ SCH ×2 (08:39→21:17)
[2016-06-19] MEDS ORDERED: AZITHROMYCIN IV 500 MG in DEXTROSE 5% 250ML 250 ML IV SCH (09:00)
--- NOTE | 2016-06-19 09:51 | NEPHROLOGY PROGRESS NOTE ---
DATE: 06/19/2016 SUBJECTIVE: Ms. Zepeda says that she is fatigued and generally not feeling well. She says that she "barely" has a cough but that her cough is nonproductive. She denies being short of breath with oxygen. She denies having any chest pain. She has had no shaking chills. She denies having significant sweats. She is now getting regular antibiotics in the form of both azithromycin and piperacillin/tazobactam. OBJECTIVE: GENERAL: On physical examination, Ms. Zepeda appears acutely and chronically ill but currently in no significant distress. VITAL SIGNS: Her temperature is 37.1 orally. Her maximum temperature in the past 24 hours was 37.6 degrees centigrade orally. Her blood pressure is 122/65 with a pulse of 70 and regular, respiratory rate is 22. Her pulse ox 95% on 4 liters of oxygen via nasal cannula. SKIN: Shows no rash or infiltrative skin disease. She has scars from prior surgical procedures. Her skin turgor is slightly diminished. LYMPHATICS: Show no palpable lymphadenopathy. HEAD: Normal. EYES: Grossly normal. The ocular fundi were not examined. EARS, NOSE, MOUTH AND THROAT: Unremarkable. Oral mucous membranes are slightly dry. NECK: Supple. There is no jugular venous distention. I hear no carotid bruit and there is no thyromegaly. CHEST: Shows diffuse scattered wheezes and rhonchi with some coarse rales at both bases. CARDIAC: Shows a regular rhythm, S1 and S2 are normal. There is a soft systolic murmur at the base. ABDOMEN: Shows a left upper quadrant ventral hernia and scars from prior surgical procedures. Bowel sounds are present. EXTREMITIES: Show changes of deforming rheumatoid arthritis, particularly in her hands and feet. She has obvious degenerative and rheumatoid changes in both knees as well. Peripheral pulses are difficult to feel, but she continues to have normal capillary refill in her fingers and toes, and there is no acrocyanosis. NEUROLOGIC: Shows her to be less lethargic. She is easily aroused but answers questions with short answers. She has a right Muro's palsy, but no other lateralizing changes. PERTINENT LABORATORY WORK: From today shows a white count down slightly to 21,240 with 86.6% neutrophils, 7.3% lymphocytes, 5.7% monocytes. Her hemoglobin is 13.3, her hematocrit 36.0, her platelet count 235,000. Her clinical chemistries show a sodium of 120 mmol/L, potassium 4.5 mmol/L, chloride is 87 mmol/L, and CO2 content 23 mmol/L. Her anion gap is 10 but accounting for her hypoalbuminemia, probably slightly higher. Her BUN is 21 and her creatinine 0.71. Her serum calcium is 8.8, her magnesium 2.2. ASSESSMENT: Ms. Zepeda appears to be reasonably stable. From the renal standpoint, she remains hyponatremic. Her blood pressure is a bit low for her but she is not tachycardic. Her skin turgor currently seems to be slightly reduced and her oral mucous membranes slightly dry. Her BUN is disproportionately elevated to her serum creatinine which has risen slightly. All in all, it raises the question as to whether or not her hyponatremia is either appropriate or inappropriate ADH secretion. If she is volume depleted, it would be appropriate. If she is euvolemic, then it would appear as if she has SIADH. RECOMMENDATIONS: The way to determine whether or not she has an appropriate or inappropriate ADH secretion is to recheck her urine osmolality and urine sodium. If her osmolality is elevated but her urine sodium is low, it would suggest that she is intravascularly volume depleted as a result of her having been using diuretics as well as her acute illness and hypoalbuminemia. If that is the case, then saline should be administered. However, since she is now off diuretics, if her urine sodium is high and her serum osmolality is elevated, then it would appear as if this is SIADH and additional tolvaptan can be given in a dose of 15 mg daily. Fluid restriction should be maintained but only if her urine sodium is high.
--- NOTE | 2016-06-19 10:51 | Family Medicine Progress Note ---
Progress Note Date of Service Jun 19, 2016. Subjective Pt evaluation today including: conversation w/ patient Alpine tired today. Said her breathing feels the same / better. Denied any new pain. Reports she passed a small amount of stool but cannot use the bed santana well. Constitutional: No fever, No sweats, No weakness, No weight loss ENT: No hearing loss Respiratory: + dyspnea on exertion, No cough, No shortness of breath, No sputum, No wheezing Cardiovascular: No chest pain Abdomen: + constipation, No diarrhea, No nausea, No pain, No vomiting All Other Systems: Reviewed and Negative Medications Current Inpatient Medications Medications (Trade) Dose Ordered Sig/Garima Route Start Time Stop Time Status Last Admin Dose Admin Acetaminophen (Tylenol Tab) 650 mg Q4H PRN PO 06/16/16 22:15 07/16/16 22:14 Zolpidem Tartrate (Ambien Tab) 5 mg HSZ PRN PO 06/16/16 22:15 07/16/16 22:14 Nitroglycerin (Nitrostat Tab) 0.4 mg UD PRN SL 06/16/16 22:15 07/16/16 22:14 Albuterol (Ventolin Hfa Inhaler) 2 puffs QID PRN INH 06/16/16 22:15 07/16/16 22:14 Aspirin (Ecotrin Tab) 81 mg QPM PO 06/17/16 21:00 07/17/16 20:59 06/18/16 20:47 81 MG Budesonide/ Formoterol Fumarate (Symbicort 160/ 4.5 Inh) 120 puffs QAM INH 06/17/16 09:00 07/17/16 08:59 06/19/16 08:36 2 PUFFS Cholecalciferol (Vitamin D Tab) 5,000 inter.unit DAILY PO 06/17/16 09:00 07/17/16 08:59 06/19/16 08:34 5,000 INTER.UNIT Hydroxychloroquine Sulfate (Plaquenil Tab) 200 mg BID PO 06/17/16 09:00 07/17/16 08:59 06/19/16 08:34 200 MG Multivitamins (Multivitamin Tab) 1 tab QAM PO 06/17/16 09:00 07/17/16 08:59 06/19/16 08:35 1 TAB Lorazepam (Ativan Inj) 0.5 mg Q4H PRN IV 06/16/16 22:15 07/16/16 22:14 06/17/16 20:01 0.5 MG Diphenhydramine HCl 25 mg 25 mg Q4H PRN IV 06/16/16 22:15 07/16/16 22:14 Promethazine HCl/ Sodium Chloride (Phenergan Inj/ Nss 50ml) 50.5 ml @ 202 mls/hr Q4H PRN IV 06/16/16 22:15 07/16/16 22:14 Ondansetron HCl (Zofran Inj) 4 mg Q6H PRN IV 06/16/16 22:15 07/16/16 22:14 Ipratropium [place] (Atrovent 0.02% 0.5MG/2.5ML Neb) 0.5 mg Q2H PRN INH 06/16/16 23:00 07/16/16 22:59 06/18/16 23:51 0.5 MG Levalbuterol (Xopenex 1.25MG/ 0.5ML Neb) 1.25 mg Q2H PRN INH 06/16/16 23:00 07/16/16 22:59 06/18/16 23:51 1.25 MG Magnesium Oxide (Mag-Ox Tab) 400 mg BID PO 06/17/16 09:00 07/17/16 08:59 06/19/16 08:35 400 MG Potassium Chloride (Klor-Con Tab) 40 meq QAM PO 06/17/16 21:00 07/17/16 20:59 06/19/16 08:35 40 MEQ Heparin Sodium (Porcine) (Heparin Sq 5000 Unit/0.5ml) 5,000 unit Q12 SQ 06/17/16 21:00 07/17/16 20:59 06/19/16 08:39 5,000 UNIT Diclofenac Sodium 1 appln 1 appln BID EXT 06/17/16 21:00 07/17/16 20:59 06/19/16 08:37 1 APPLN Piperacillin Sod/ Tazobactam Sod/ Dextrose (Zosyn Iv/D5 100ml) 115 ml @ 28.75 mls/ hr Q8H IV 06/18/16 10:00 06/25/16 09:59 06/19/16 02:05 28.75 MLS/HR Piperacillin Sod/ Tazobactam Sod 1 ea 1 ea UD PRN N/A 06/18/16 04:30 07/18/16 04:29 Azithromycin/ Dextrose (Zithromax IV/D5 250ml) 255 ml @ 125 mls/hr DAILY IV 06/19/16 09:00 06/21/16 08:59 06/19/16 08:36 125 MLS/HR Objective Vital Signs Date Time Temp Pulse Resp B/P Pulse Ox O2 Delivery O2 Flow Rate FiO2 06/19/16 08:00 Nasal Cannula 4.0 06/19/16 07:30 37.1 70 22 122/65 95 Nasal Cannula 4.0 06/19/16 04:00 Nasal Cannula 4.0 06/19/16 03:05 36.5 76 18 114/71 96 Nasal Cannula 4.0 06/19/16 00:05 Nasal Cannula 4.0 06/18/16 23:30 37.4 85 24 118/82 95 Nasal Cannula 4.0 06/18/16 23:00 88 20 95 Nasal Cannula 5.0 06/18/16 20:10 Nasal Cannula 4.0 06/18/16 19:50 80 24 95 Venturi Mask 50 06/18/16 19:38 37.1 85 20 127/60 95 Venturi Mask 06/18/16 16:00 Venturi Mask 15.0 06/18/16 15:56 37.6 79 20 118/73 93 Non-Rebreather 15.0 06/18/16 12:00 Venturi Mask 15.0 06/18/16 11:49 37.3 87 22 131/68 93 BiPAP Physical Exam General Appearance: WD/WN, no apparent distress, + thin Eyes: normal inspection, PERRL ENT: hearing grossly normal Neck: supple, no JVD Respiratory/Chest: lungs clear, normal breath sounds, no respiratory distress Cardiovascular: regular rate, rhythm, no murmur Abdomen: normal bowel sounds, non tender, soft Extremities: non-tender, normal inspection, no pedal edema Neurologic/Psychiatric: alert, oriented x 3 Skin: no rash Laboratory Results Last 24 Hours Test 06/18/16 19:16 06/19/16 06:59 06/19/16 09:50 Sodium Level 121 mmol/L 120 mmol/L Potassium Level 4.9 mmol/L 4.5 mmol/L Chloride Level 88 mmol/L 87 mmol/L Carbon Dioxide Level 24 mmol/L 23 mmol/L Anion Gap 9.0 mmol/L 10.0 mmol/L Blood Urea Nitrogen 17 mg/dl 21 mg/dl Creatinine 0.61 mg/dl 0.71 mg/dl Est Creatinine Clear Calc Drug Dose 64.9 ml/min 55.7 ml/min Estimated GFR () 102.1 95.9 Estimated GFR (Non- 88.1 82.7 BUN/Creatinine Ratio 27.4 30.2 Random Glucose 113 mg/dl 144 mg/dl Calcium Level 8.6 mg/dl 8.8 mg/dl White Blood Count 21.24 K/uL Red Blood Count 3.91 M/uL Hemoglobin 13.3 g/dL Hematocrit 36.0 % Mean Corpuscular Volume 92.1 fL Mean Corpuscular Hemoglobin 34.0 pg Mean Corpuscular Hemoglobin Concent 36.9 g/dl Platelet Count 235 K/uL Mean Platelet Volume 9.5 fL Neutrophils (%) (Auto) 86.6 % Lymphocytes (%) (Auto) 7.3 % Monocytes (%) (Auto) 5.7 % Eosinophils (%) (Auto) 0.0 % Basophils (%) (Auto) 0.0 % Neutrophils # (Auto) 18.37 K/uL Lymphocytes # (Auto) 1.54 K/uL Monocytes # (Auto) 1.22 K/uL Eosinophils # (Auto) 0.01 K/uL Basophils # (Auto) 0.01 K/uL RDW Standard Deviation 44.8 fL RDW Coefficient of Variation 13.4 % Immature Granulocyte % (Auto) 0.4 % Immature Granulocyte # (Auto) 0.09 K/uL Magnesium Level 2.2 mg/dl Urine Osmolality 607 mOms/kg Urine Random Sodium < 5 mEq/L Assessment and Plan 75 yo F admitted after a fall, found to have hyponatremia (baseline sodium around 125-130, 115 on admission, now 120) and hypo-osmolality, 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 Appreciate Dr Herring's recommendations - will recheck urine sodium and urine osmolalities Last dose of Tolvaptan yesterday. Right lower lobe pneumonia - HCAP/CAP/Aspiration Fever, wbc elevation, respiratory failure Pulmonary consulted Received a dose of Vanc yesterday, now stopped since MRSA nares negative Continue Zosyn and Azithromycin Potential aspiration pnuemonia Speech evaluation completed - no sign of aspiration but concern of difficulty chewing due to facial weakness - pureed food recommended Hypokalemia/Hypomagnesemia Received KCL 40mEq PO tablets, K+ normalized Received Mag Ox 400mg BID, Mag normalized Continue to monitor Leucocytosis Urine culture negative Likely from pneumonia Rheumatoid arthritis Continue hydroxychloroquine 200mg BID Osteoarthritis of knee Postpone knee surgery which was with Dr Cornell Voltaren gel/Tylenol Asthma Continue Simcor inhaler daily and Albuterol QID PRN CODE STATUS: FULL VTE: Heparin Disposition: Telemetry Resident Tracking Resident Involvement: Resident Care Provided Care Provided: Adult Hospital Medicine Reviewed: Pt Seen/Exam by Me History alert this morning - continues to feel weak but overall better Constitutional: denies: fever Respiratory: negative: short of breath Cardiovascular: denies chest pain Gastrointestinal/Abdominal: negative: abdominal pain General Appearance: no apparent distress Respiratory: lungs clear (anteriorly), no respiratory distress Cardiovascular: regular rate, rhythm Gastrointestinal: normal bowel sounds, non tender, soft Neurologic/Psychiatric: alert, oriented x 3, other (left side facial droop - chronic) Assessment/Plan I have reviewed the medical record and performed a history and physical examination of this patient today. I have discussed the case with Dr. Small. The above note reflects my findings, conclusions, and recommendations.
[2016-06-19 12:20] VITALS: BP 117/72; PULSE 76; TEMP 36.4; O2SAT 94
[2016-06-19 15:48] VITALS: BP 108/63; PULSE 76; TEMP 37.1; O2SAT 92
--- NOTE | 2016-06-19 19:04 | PROGRESS NOTE ---
DATE: 06/19/2016 RENAL PROGRESS NOTE OBJECTIVE: Currently Ms. Zepeda's blood pressure is 108/63 with a pulse of 76 and regular. Her temperature is 37.1. Her respiratory rate is 20 and her pulse ox 92% to 94% on 4 liters of oxygen via nasal cannula. Her exam is as dictated this morning. Her recent laboratory studies taken this morning showed a urine osmolality of 607 with a urinary sodium of less than 5. ASSESSMENT: Given her very low urine sodium and a concentrated urine as well as a low blood pressure, it seems as if her problem at this point is one of sodium depletion. Her secretion of antidiuretic hormone would be felt to be appropriate. RECOMMENDATIONS: I would not give her any more Tolvaptan. I would start giving her D5 saline at a rate of about 75 mL an hour. Because of some hypokalemia, she may develop a small amount of edema. Hopefully, however, this will help her correct her serum sodium. Dr. Delano Gonzalez will be following her for me this weekend.
[2016-06-19 19:17] LABS: BUN/CREATININE RATIO 30.8 (10-20); CALCIUM 8.6 mg/dl (8.5-10.1); CREATININE 0.74 mg/dl (0.60-1.20); POTASSIUM 4.9 mmol/L (3.5-5.1)
[2016-06-19 19:37] VITALS: BP 113/67; PULSE 69; TEMP 36.6; O2SAT 96
[2016-06-19] MEDS: D5W AND NSS 1,000 ML IV SCH (21:13)
[2016-06-19] MEDS: ASPIRIN 81 MG ECTAB PO SCH (21:15)
[2016-06-19 23:57] VITALS: BP 117/65; PULSE 73; TEMP 36.4; O2SAT 100
[2016-06-20] VITALS (7 sets, daily range): BP systolic 108–138; BP diastolic 57–87; PULSE 58–73; TEMP 36.3–36.6; O2SAT 97–98
[2016-06-20] MEDS: PIPERACILL/TAZOBAC IV 3.375 GM in DEXTROSE 5% 100ML IV SCH ×3 (02:35→17:58)
[2016-06-20] MEDS ORDERED: VANCOMYCIN TROUGH SCH (04:30)
[2016-06-20] MEDS: DICLOFENAC SOD 1% GEL 100 GM TUBE EXT SCH ×2 (07:41→20:57)
[2016-06-20] MEDS: BUDESONIDE/FORMOTEROL FUMARATE 160/4.5 60 PUFFS/INHALER INH SCH (07:43)
[2016-06-20] MEDS: AZITHROMYCIN IV 500 MG in DEXTROSE 5% 250ML 250 ML IV SCH (07:49)
[2016-06-20] MEDS: HYDROXYCHLOROQUINE SULFATE 200 MG TAB PO SCH ×2 (07:51→21:18)
[2016-06-20] MEDS: MAGNESIUM OXIDE 400 MG TAB PO SCH (07:52)
[2016-06-20] MEDS: CHOLECALCIFEROL 1000 INTER.UNIT TAB PO SCH (07:52)
[2016-06-20] MEDS: MULTIVITAMIN TAB PO SCH (07:53)
[2016-06-20] MEDS: POTASSIUM CHLORIDE 20 MEQ TABCR PO SCH (07:53)
[2016-06-20] MEDS: HEPARIN SOD 5000 UNIT/0.5 ML CARP SQ SCH ×2 (07:54→21:19)
[2016-06-20] MEDS: D5W AND NSS 1,000 ML IV SCH ×2 (08:05→21:22)
--- NOTE | 2016-06-20 08:35 | PROGRESS NOTE ---
DATE: 06/20/2016 PULMONARY PROGRESS NOTE The patient is stable from a pulmonary standpoint. She remains very weak. She does state she feels better than at the time of admission, is a bit stronger. She denies cough or chest pain. It does not appear she had been out of bed much. PHYSICAL EXAMINATION: VITAL SIGNS: Stable, blood pressure is 108/57, oxygen saturation is 98% to 100% on 4 liters which has improved and she is afebrile. Pulse is 60 and regular. I\T\O's: 935 in and 600 out. Weight 63.1 kilograms, which is down about half a kilogram from the 7th. According to nurses' note, she had a fairly good night last night. Denied any pain or shortness of breath. She is receiving some IV fluids. HEENT: Reveals the ecchymosis on the left eye to be improving. The left facial droop persists. Her nose exam is unremarkable. Posterior pharynx reveals no thrush. No nodes are palpable. Carotid upstroke is good. HEART: Has a regular rate and rhythm at about 60 beats per minute. LUNGS: Reveal few scattered rhonchi with decreased breath sounds. ABDOMEN: Soft and nontender. EXTREMITIES: Reveal no cyanosis, clubbing or edema. PULMONARY: Does reveal few rhonchi in the right mid lung field anterior over the right middle lobe area. DIAGNOSTIC DATA: Electrocardiogram initially at the time of admission revealed some T-wave abnormalities with anterior wall ischemic changes. Repeat electrocardiogram on the revealed a new left bundle branch block with repolarization changes. Electrocardiogram done on the revealed the left bundle branch block which had not changed. It appears left bundle may be new. Echocardiogram done on the reveals a fairly well preserved left ventricular ejection fraction at 60% to 65% with grade 1 diastolic dysfunction, left ventricular hypertrophy and mild TR. White count is pending for today as is the chemistry profile. Sodium has improved nicely to 123. Magnesium is 2.2. IMPRESSION: 1. Basilar infiltrates bilaterally consistent with pneumonia, this has improved. 2. Hyponatremia. 3. Profound weakness. 4. New left bundle branch block. RECOMMENDATIONS: 1. At this point, we recommended possible cardiology evaluation because of the EKG changes. It appears electrocardiogram back in February of 2016 showed a significant amount of tremor artifact with low voltage and left posterior fascicular block, but the bundle branch block was not present at that time. Some of her weakness could be angina. 2. Continue with her present antimicrobial agents. She seems to be tolerating those very well. 3. Continue on the Symbicort for the asthma and it will help to enhance mucociliary clearance. 4. Increase activity. I believe she needs to be pushed fairly good to get out of bed as much as she can tolerate it where hemodynamically she should be alright. Overall, from a pulmonary standpoint, she is stable.
--- NOTE | 2016-06-20 09:42 | DIAGNOSTIC IMAGING REPORT ---
SINGLE VIEW CHEST CLINICAL HISTORY: Pneumonia. FINDINGS: An AP, portable, upright chest radiograph is compared to study dated 06/18/16 and correlated with chest CT dated 10/14/2014. The examination is degraded by portable technique and patient rotation. The heart is enlarged and there is atherosclerotic calcification of the thoracic aorta. The pulmonary vasculature is noncongested. Emphysema and chronic interstitial thickening are similar to previous. Small pleural effusions are suspected. Airspace opacities at the lung bases have almost completely resolved and may have represented atelectasis. Apical scarring is observed. No pneumothorax is seen. The skeletal structures are osteopenic. Degenerative change and scoliosis is identified in the thoracic spine. IMPRESSION: 1. Cardiomegaly and emphysema. 2. Small pleural effusions. 3. Bibasilar airspace opacities have almost completely resolved and may have represented atelectasis. Clinical correlation will be required. Electronically signed by: Neo Diego M.D. 06/20/2016 9:40 AM Dictated Date/Time: 06/20/2016 9:38 AM
--- NOTE | 2016-06-20 11:01 | Nephrology Progress Note ---
Nephrology Progress Note Date of Service Jun 20, 2016. Chief Complaint Hyponatremia Subjective No acute events overnight. Ranjit is very tired this morning. Appetite is improving but diminished. She denies shortness of breath. She denies fevers or chills. She was unable to sleep last night and is experiencing increasing anxiety. She has mild chronic pain in the small joints of her hands and lower back which she describes as mild and chronic. Review of Systems A complete review of systems was performed. Pertinent positives are noted above. All other systems are negative. Vital Signs Last 8 Hrs Date Time Temp Pulse Resp B/P Pulse Ox O2 Delivery O2 Flow Rate FiO2 06/20/16 07:50 36.5 62 22 138/87 97 Nasal Cannula 4.0 06/20/16 04:00 Nasal Cannula 4.0 06/20/16 04:00 36.6 58 22 108/57 98 Nasal Cannula 4.0 I & O 24-Hour Column 06/20/16 07:59 Intake Total 1243 ml Output Total 900 ml Balance 343 ml Last Recorded Weight Weight (Kilograms): 63.100 Physical Exam General Appearance: WD/WN, no apparent distress Head: normocephalic, atraumatic Eyes: normal inspection, sclerae normal ENT: normal ENT inspection, + pertinent finding (oral mucosa dry without lesion ) Neck: supple, no JVD Respiratory/Chest: lungs clear, no respiratory distress, no accessory muscle use Cardiovascular: regular rate, rhythm, no gallop, no murmur Abdomen/GI: non tender, soft Extremities/Musculoskelatal: normal inspection, no pedal edema Neurologic/Psych: alert, oriented x 3 Family History Patient reports no known family medical history. Social History Smokeless Tobacco Use: No Alcohol Use: none Drug Use: none Marital Status: single Housing Status: lives alone Occupation: retired Laboratory Results Past 24 Hours 06/19/16 18:53 Test 06/19/16 18:53 Anion Gap 10.0 mmol/L (3-11) Est Creatinine Clear Calc Drug Dose 53.5 ml/min Estimated GFR () 91.2 Estimated GFR (Non- 78.7 BUN/Creatinine Ratio 30.8 (10-20) Calcium Level 8.6 mg/dl (8.5-10.1) Allergies Coded Allergies: Latex1 -Allergic Contact Dermititis (Verified Allergy, Mild, RASH, 06/05/16 ) Banana (Verified Allergy, Unknown, RASH, 06/05/16) [place] Nut (Verified Allergy, Unknown, HIVES, 06/05/16) Ciprofloxacin (Verified Allergy, Unknown, PASSED OUT, SEVERE RXN PER PATIENT, 06/05/16) Codeine (Verified Allergy, Unknown, DIZZINESS, 06/05/16) Moxifloxacin (Verified Allergy, Unknown, PAIN IN HEEL, 06/05/16) Nickel (Verified Allergy, Unknown, RASH ON EARS WITH EARRINGS WITH NICKEL , 06/05/16) Sulfa Antibiotics (Verified Allergy, Unknown, UNSURE OF RXN, 06/05/16) Fluconazole (Verified Adverse Reaction, Intermediate, TACHYCARDIA, HAIR LOSS, 06/12/16) Adhesives (Verified Adverse Reaction, Mild, CONTACT DERMATITIS, 06/05/16) Lactose. (Verified Adverse Reaction, Unknown, GI SYMPTOMS, 06/05/16) Pt reports lactose intolerance Medications Current Inpatient Medications Medications (Trade) Dose Ordered Sig/Garima Route Start Time Stop Time Status Last Admin Dose Admin Acetaminophen (Tylenol Tab) 650 mg Q4H PRN PO 06/16/16 22:15 07/16/16 22:14 Zolpidem Tartrate (Ambien Tab) 5 mg HSZ PRN PO 06/16/16 22:15 07/16/16 22:14 Nitroglycerin (Nitrostat Tab) 0.4 mg UD PRN SL 06/16/16 22:15 07/16/16 22:14 Albuterol (Ventolin Hfa Inhaler) 2 puffs QID PRN INH 06/16/16 22:15 07/16/16 22:14 Aspirin (Ecotrin Tab) 81 mg QPM PO 06/17/16 21:00 07/17/16 20:59 06/19/16 21:15 81 MG Budesonide/ Formoterol Fumarate (Symbicort 160/ 4.5 Inh) 120 puffs QAM INH 06/17/16 09:00 07/17/16 08:59 06/20/16 07:43 2 PUFFS Cholecalciferol (Vitamin D Tab) 5,000 inter.unit DAILY PO 06/17/16 09:00 07/17/16 08:59 06/20/16 07:52 5,000 INTER.UNIT Hydroxychloroquine Sulfate (Plaquenil Tab) 200 mg BID PO 06/17/16 09:00 07/17/16 08:59 06/20/16 07:51 200 MG Multivitamins (Multivitamin Tab) 1 tab QAM PO 06/17/16 09:00 07/17/16 08:59 06/20/16 07:53 1 TAB Lorazepam (Ativan Inj) 0.5 mg Q4H PRN IV 06/16/16 22:15 07/16/16 22:14 06/17/16 20:01 0.5 MG Diphenhydramine HCl 25 mg 25 mg Q4H PRN IV 06/16/16 22:15 07/16/16 22:14 Promethazine HCl/ Sodium Chloride (Phenergan Inj/ Nss 50ml) 50.5 ml @ 202 mls/hr Q4H PRN IV 06/16/16 22:15 07/16/16 22:14 Ondansetron HCl (Zofran Inj) 4 mg Q6H PRN IV 06/16/16 22:15 07/16/16 22:[address] [place] (Atrovent 0.02% 0.5MG/2.5ML Neb) 0.5 mg Q2H PRN INH 06/16/16 23:00 07/16/16 22:59 06/18/16 23:51 0.5 MG Levalbuterol (Xopenex 1.25MG/ 0.5ML Neb) 1.25 mg Q2H PRN INH 06/16/16 23:00 07/16/16 22:59 06/18/16 23:51 1.25 MG Magnesium Oxide (Mag-Ox Tab) 400 mg BID PO 06/17/16 09:00 07/17/16 08:59 06/20/16 07:52 400 MG Potassium Chloride (Klor-Con Tab) 40 meq QAM PO 06/17/16 21:00 07/17/16 20:59 06/20/16 07:53 40 MEQ Heparin Sodium (Porcine) (Heparin Sq 5000 Unit/0.5ml) 5,000 unit Q12 SQ 06/17/16 21:00 07/17/16 20:59 06/20/16 07:54 5,000 UNIT Diclofenac Sodium 1 appln 1 appln BID EXT 06/17/16 21:00 07/17/16 20:59 06/19/16 08:37 1 APPLN Piperacillin Sod/ Tazobactam Sod/ Dextrose (Zosyn Iv/D5 100ml) 115 ml @ 28.75 mls/ hr Q8H IV 06/18/16 10:00 06/25/16 09:59 06/20/16 09:53 28.75 MLS/HR Piperacillin Sod/ Tazobactam Sod 1 ea 1 ea UD PRN N/A 06/18/16 04:30 07/18/16 04:29 Azithromycin 500 mg/Dextrose 255 ml @ 125 mls/hr DAILY IV 06/20/16 09:00 06/23/16 08:59 06/20/16 07:49 125 MLS/HR Dextrose/Sodium Chloride (D5W And Nss) 1,000 ml @ 75 mls/hr [id number] IV 06/19/16 18:45 07/19/16 18:44 06/19/16 21:13 75 MLS/HR Impression (1) Hyponatremia (2) Weakness (3) Fall (4) Rheumatoid arthritis (5) Pneumonia of both lower lobes Ranjit is a 75-year-old female with chronic lung disease and rheumatoid arthritis. She has chronic mild hyponatremia which may be associated with thiazide diuretic use, chronic SIADH or reset osmostat. Ranjit was admitted to [facility] with a fall, hypoxia and concern for bilateral lower lobe pneumonia. She was started on treatment for a healthcare associated pneumonia. Imaging and oxygen status improving. Today, there is concern for a new left bundle branch block but I do not have old EKG's available for review. Ranjit did deny chest pain. Overall, she has clinically been improving. She remains hypovolemic on exam. Her appetite is diminished. She describes mild hypoxia with meals and cannot exclude silent aspiration. Serum sodium improving with normal saline infusion. Laboratory studies and clinical presentation consistent with renal sodium avidity -- hypovolemic hyponatremia. Other laboratory studies related to diuretic use and decreased nutrition including hypokalemia and hypomagnesemia improved with replacement. Recommendations -- Continue 0.9% saline infusion with goal of -- Repeat BMP this afternoon -- Hold KCl, monitor and replace PRN -- hold oral magnesium oxide and monitor magnesium level daily -- Check renal profile, urine osmolality and electrolytes tomorrow AM
[2016-06-20] MEDS ORDERED: NURSING VERBAL MED ORDER ONE (13:00)
[2016-06-20] MEDS ORDERED: ARTIFICIAL TEARS OP SOLN OP PRN ×2 (13:15)
--- NOTE | 2016-06-20 15:44 | Family Medicine Progress Note ---
Progress Note Date of Service Jun 20, 2016. Subjective feeling very weak. bottom feels sore due to having loose stools Constitutional: No fever Respiratory: No shortness of breath Cardiovascular: No chest pain Abdomen: + problem reported (appetite is not good), No pain Objective Physical Exam General Appearance: + pertinent finding (lethargic) Respiratory/Chest: no respiratory distress, + decreased breath sounds (base) Cardiovascular: regular rate, rhythm Abdomen: normal bowel sounds, non tender, soft Neurologic/Psychiatric: alert, oriented x 3 Skin: warm/dry Assessment and Plan 75 yo F admitted after a fall, found to have hyponatremia (baseline sodium around 125-130, 115 on admission, now 120) and hypo-osmolality, likely from diuretics(HCTZ) use with poor fluid and food intake with underlying ?SIADH. Now with new pneumonia (community acquired vs aspiration) Acute hypoxic respiratory failure Resolved Had to be on BiPAP ? sec to Pneumonia Hyponatremia in setting of SIADH s/p 2 doses of Tolvaptan Na slowly improving Continue fluid restrict 1.2-1.5 liters per day. Continue NSS Right lower lobe pneumonia - HCAP/CAP/Aspiration with underlying asthma Fever, wbc elevation, respiratory failure Pulmonary consulted Received a dose of Vanc yesterday, now stopped since MRSA nares negative Continue Zosyn and Azithromycin Speech evaluation completed - no sign of aspiration but concern of difficulty chewing due to facial weakness - pureed food recommended Continue inhalers. Weakness ? sec to dehydration/hyponatremia/deconditioning continue IV hydration. 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 Discussed with Dr. Irene. Will review EKG in am Loose stools Check for C diff Add probiotics Leucocytosis Urine culture negative Likely from pneumonia Rheumatoid arthritis Continue hydroxychloroquine 200mg BID Osteoarthritis of knee Postpone knee surgery which was with Dr Cornell Voltaren gel/Tylenol Asthma Continue Simcor inhaler daily and Albuterol QID PRN Full code Heparin Transfer to Medical floor
[2016-06-20 15:48] LABS: BUN/CREATININE RATIO 22.1 (10-20); CALCIUM 8.4 mg/dl (8.5-10.1); CREATININE 0.48 mg/dl (0.60-1.20); POTASSIUM 4.8 mmol/L (3.5-5.1)
[2016-06-20] MEDS: LACTOBACILLUS ACIDOPHILUS (FLORANEX) TAB PO SCH ×2 (17:42→21:17)
[2016-06-20] MEDS: ASPIRIN 81 MG ECTAB PO SCH (21:17)
[2016-06-21] VITALS (10 sets, daily range): BP systolic 91–155; BP diastolic 55–78; PULSE 60–73; TEMP 36.4–36.7; O2SAT 96–98
[2016-06-21] MEDS: PIPERACILL/TAZOBAC IV 3.375 GM in DEXTROSE 5% 100ML IV SCH ×3 (02:23→17:38)
[2016-06-21 07:18] LABS: BUN/CREATININE RATIO 14.8 (10-20); CALCIUM 8.7 mg/dl (8.5-10.1); CREATININE 0.44 mg/dl (0.60-1.20); MAGNESIUM 2.1 mg/dl (1.8-2.4); PHOSPHORUS 1.9 mg/dl (2.5-4.9); POTASSIUM 4.2 mmol/L (3.5-5.1)
[2016-06-21] MEDS: BOOST VANILLA PUDDING CUP PO SCH ×2 (08:00→17:00)
[2016-06-21] MEDS: AZITHROMYCIN IV 500 MG in DEXTROSE 5% 250ML 250 ML IV SCH (08:51)
[2016-06-21] MEDS: DICLOFENAC SOD 1% GEL 100 GM TUBE EXT SCH ×2 (08:51→21:00)
[2016-06-21] MEDS: BUDESONIDE/FORMOTEROL FUMARATE 160/4.5 60 PUFFS/INHALER INH SCH (08:52)
[2016-06-21] MEDS: LACTOBACILLUS ACIDOPHILUS (FLORANEX) TAB PO SCH ×4 (08:53→20:58)
[2016-06-21] MEDS: HYDROXYCHLOROQUINE SULFATE 200 MG TAB PO SCH ×2 (08:54→20:59)
[2016-06-21] MEDS: MULTIVITAMIN TAB PO SCH (08:54)
[2016-06-21] MEDS: HEPARIN SOD 5000 UNIT/0.5 ML CARP SQ SCH ×2 (08:54→20:56)
[2016-06-21] MEDS: CHOLECALCIFEROL 1000 INTER.UNIT TAB PO SCH (08:55)
--- NOTE | 2016-06-21 08:56 | PROGRESS NOTE ---
DATE: 06/21/2016 PULMONARY PROGRESS NOTE HISTORY OF PRESENT ILLNESS: The patient is comfortable today. She states she feels considerably better. She denies cough or chest pain just remains very weak. She has had some difficulty with bowel movements and she usually wears Depends at home. She denies any chest pain, just remains weak at this point. She states she is hungry this morning. PHYSICAL EXAMINATION: VITAL SIGNS: Stable. Blood pressure 122/73, oxygen saturation 98% on 2 liters and she is afebrile. I O is 1341 in and 1250 out. Her weight is 65.3 kilograms. With more out and in or essentially an even fluid intake, her weight is up about 5 pounds and I think the built-in scale probably is not accurate. According to the nurses' note, she had a good night last night without any particular problems. She does have a Minaya catheter in place. HEENT AND NECK: Left ecchymotic suborbital area has improved. Left facial droop of course is chronic. Right eye looks good. Posterior pharynx is unremarkable with no thrush noted. No adenopathy is noted. No subcutaneous emphysema noted. HEART: Regular rate and rhythm. LUNGS: Clear, other than a few coarse breath sounds at the left base sounded clear today. No fremitus is noted. There is no dullness to percussion. ABDOMEN: Soft. Has a doughy consistency. EXTREMITIES: She has no cyanosis, clubbing or edema. LABORATORY DATA: The PRP is pending. Sodium was up to 126 yesterday with a CO2 of 24. C. diff toxin of the stool was negative. Urine culture was unremarkable from the . MRSA DNA surveillance screen is negative. IMAGING DATA: Chest x-ray yesterday revealed improvement in the basilar infiltrates. I still think this was pneumonia, perhaps with some atelectasis. Cardiomegaly and change are consistent with emphysema are noted as well. IMPRESSION: 1. Bibasilar pneumonia with hypoxemia, markedly improved. 2. Asthma, stable. 3. Rheumatoid arthritis with pulmonary nodules, chronic. RECOMMENDATIONS: 1. Continue with her present medications including the Xopenex, Symbicort, I think the Atrovent probably could be discontinued since she has no wheezing now. 2. Increase p.o. intake. 3. Increase activity. I suggest the patient may be could get into a wheelchair be wheeled around in the hallway and sit out of bed in the chair for a long period of time to improve her strength. Physical therapy evaluation will be helpful as well. Dr. Villarreal is on for week and I will ask him to follow the patient during her hospital stay as well. AGNES
[2016-06-21] MEDS: D5W AND NSS 1,000 ML IV SCH (11:17)
--- NOTE | 2016-06-21 11:43 | Nephrology Progress Note ---
Nephrology Progress Note Date of Service Jun 21, 2016. Chief Complaint Hyponatremia Subjective No acute events overnight. Ranjit is very despondent this morning. She does not feel that she is recovering. Her appetite remains poor. She denies nausea or abdominal pain. She is having frequent, loose stool. She has urgency and is too weak to transfer from bed without significant assistance. She denies dyspnea. She does not have fevers or chills. She has not been able to ambulate due to weakness. Review of Systems A complete review of systems was performed. Pertinent positives are noted above. All other systems are negative. Vital Signs Last 8 Hrs Date Time Temp Pulse Resp B/P Pulse Ox O2 Delivery O2 Flow Rate FiO2 06/21/16 07:46 36.4 63 18 155/78 98 Room Air I & O 24-Hour Column 06/21/16 07:59 Intake Total 1762 ml Output Total 2050 ml Balance -288 ml Last Recorded Weight Weight (Kilograms): 65.300 Physical Exam General Appearance: WD/WN, no apparent distress Head: normocephalic, atraumatic Eyes: normal inspection, sclerae normal ENT: normal ENT inspection, pharynx normal, + pertinent finding (oral mucosa slightly dry) Neck: supple, no JVD Respiratory/Chest: no respiratory distress, no accessory muscle use, + pertinent finding (coarse, no rales, no wheeze) Cardiovascular: regular rate, rhythm Abdomen/GI: non tender, soft Extremities/Musculoskelatal: normal inspection, no pedal edema Neurologic/Psych: alert, oriented x 3, + depressed affect Family History Patient reports no known family medical history. Social History Smokeless Tobacco Use: No Alcohol Use: none Drug Use: none Marital Status: single Housing Status: lives alone Occupation: retired Laboratory Results Past 24 Hours 06/20/16 15:23 06/21/16 06:30 Test 06/20/16 11:33 06/20/16 15:23 06/21/16 06:30 Urine Osmolality 170 mOms/kg (500-800) Urine Random Sodium 8 mEq/L Urine Random Potassium 22.6 mEq/L Anion Gap 8.0 mmol/L (3-11) 10.0 mmol/L (3-11) Est Creatinine Clear Calc Drug Dose 89.2 ml/min 98.8 ml/min Estimated GFR () 110.4 113.6 Estimated GFR (Non- 95.3 98.1 BUN/Creatinine Ratio 22.1 (10-20) 14.8 (10-20) Calcium Level 8.4 mg/dl (8.5-10.1) 8.7 mg/dl (8.5-10.1) Phosphorus Level 1.9 mg/dl (2.5-4.9) Magnesium Level 2.1 mg/dl (1.8-2.4) Albumin 2.4 gm/dl (3.4-5.0) Allergies Coded Allergies: Latex1 -Allergic Contact Dermititis (Verified Allergy, Mild, RASH, 06/05/16 ) Banana (Verified Allergy, Unknown, RASH, 06/05/16) [place] Nut (Verified Allergy, Unknown, HIVES, 06/05/16) Ciprofloxacin (Verified Allergy, Unknown, PASSED OUT, SEVERE RXN PER PATIENT, 06/05/16) Codeine (Verified Allergy, Unknown, DIZZINESS, 06/05/16) Moxifloxacin (Verified Allergy, Unknown, PAIN IN HEEL, 06/05/16) Nickel (Verified Allergy, Unknown, RASH ON EARS WITH EARRINGS WITH NICKEL , 06/05/16) Sulfa Antibiotics (Verified Allergy, Unknown, UNSURE OF RXN, 06/05/16) Fluconazole (Verified Adverse Reaction, Intermediate, TACHYCARDIA, HAIR LOSS, 06/12/16) Adhesives (Verified Adverse Reaction, Mild, CONTACT DERMATITIS, 06/05/16) Lactose. (Verified Adverse Reaction, Unknown, GI SYMPTOMS, 06/05/16) Pt reports lactose intolerance Medications Current Inpatient Medications Medications (Trade) Dose Ordered Sig/Garima Route Start Time Stop Time Status Last Admin Dose Admin Acetaminophen (Tylenol Tab) 650 mg Q4H PRN PO 06/16/16 22:15 07/16/16 22:14 Zolpidem Tartrate (Ambien Tab) 5 mg HSZ PRN PO 06/16/16 22:15 07/16/16 22:14 Nitroglycerin (Nitrostat Tab) 0.4 mg UD PRN SL 06/16/16 22:15 07/16/16 22:14 Albuterol (Ventolin Hfa Inhaler) 2 puffs QID PRN INH 06/16/16 22:15 07/16/16 22:14 Aspirin (Ecotrin Tab) 81 mg QPM PO 06/17/16 21:00 07/17/16 20:59 06/20/16 21:17 81 MG Budesonide/ Formoterol Fumarate (Symbicort 160/ 4.5 Inh) 120 puffs QAM INH 06/17/16 09:00 07/17/16 08:59 06/21/16 08:52 2 PUFFS Cholecalciferol (Vitamin D Tab) 5,000 inter.unit DAILY PO 06/17/16 09:00 07/17/16 08:59 06/21/16 08:55 5,000 INTER.UNIT Hydroxychloroquine Sulfate (Plaquenil Tab) 200 mg BID PO 06/17/16 09:00 07/17/16 08:59 06/21/16 08:54 200 MG Multivitamins (Multivitamin Tab) 1 tab QAM PO 06/17/16 09:00 07/17/16 08:59 06/21/16 08:54 1 TAB Lorazepam (Ativan Inj) 0.5 mg Q4H PRN IV 06/16/16 22:15 07/16/16 22:14 06/17/16 20:01 0.5 MG Diphenhydramine HCl 25 mg 25 mg Q4H PRN IV 06/16/16 22:15 07/16/16 22:14 Promethazine HCl/ Sodium Chloride (Phenergan Inj/ Nss 50ml) 50.5 ml @ 202 mls/hr Q4H PRN IV 06/16/16 22:15 07/16/16 22:14 Ondansetron HCl (Zofran Inj) 4 mg Q6H PRN IV 06/16/16 22:15 07/16/16 22:14 Ipratropium [place] (Atrovent 0.02% 0.5MG/2.5ML Neb) 0.5 mg Q2H PRN INH 06/16/16 23:00 07/16/16 22:59 06/18/16 23:51 0.5 MG Levalbuterol (Xopenex 1.25MG/ 0.5ML Neb) 1.25 mg Q2H PRN INH 06/16/16 23:00 07/16/16 22:59 06/18/16 23:51 1.25 MG Heparin Sodium (Porcine) (Heparin Sq 5000 Unit/0.5ml) 5,000 unit Q12 SQ 06/17/16 21:00 07/17/16 20:59 06/21/16 08:54 5,000 UNIT Diclofenac Sodium 1 appln 1 appln BID EXT 06/17/16 21:00 07/17/16 20:59 06/19/16 08:37 1 APPLN Piperacillin Sod/ Tazobactam Sod/ Dextrose (Zosyn Iv/D5 100ml) 115 ml @ 28.75 mls/ hr Q8H IV 06/18/16 10:00 06/25/16 09:59 06/21/16 11:16 28.75 MLS/HR Piperacillin Sod/ Tazobactam Sod 1 ea 1 ea UD PRN N/A 06/18/16 04:30 07/18/16 04:29 Azithromycin 500 mg/Dextrose 255 ml @ 125 mls/hr DAILY IV 06/20/16 09:00 06/23/16 08:59 06/21/16 08:51 125 MLS/HR Dextrose/Sodium Chloride (D5W And Nss) 1,000 ml @ 75 mls/hr [id number] IV 06/19/16 18:45 07/19/16 18:44 06/21/16 11:17 75 MLS/HR Artificial Tears (Artificial Tears) 1 drops PRN PRN OP 06/20/16 13:15 07/20/16 13:14 Lactobacillus Acidophilus (Floranex Tab) 4 tab QIDM PO 06/20/16 17:00 07/20/16 16:59 06/21/16 08:53 4 TAB Enteral Nutritional Formula (Boost Pudding) 1 cup BIDM PO 06/21/16 08:00 07/21/16 07:59 Impression (1) Hyponatremia (2) Weakness (3) Fall (4) Rheumatoid arthritis (5) Pneumonia of both lower lobes Ranjit is a 75-year-old female with chronic lung disease and rheumatoid arthritis. She has chronic mild hyponatremia complicated by poor nutritional status and solute intake complicated by thiazide diuretic use. Ranjit was admitted to [facility] with a fall, hypoxia and bilateral lower lobe pneumonia with concern for possible aspiration. She was started on treatment for a healthcare associated pneumonia. Serum sodium seems to have plateaued but urine osmolality more appropriate. Nutritional status remains poor. Given reported change in bowel habits and low urine sodium would continue IVF. Start Phos NaK oral replacement for hypophosphatemia. Repeat renal profile tomorrow AM. Recommendations -- Continue 0.9% saline infusion @ 75 ml/hr -- Oral Phos NaK replacement -- Repeat metabolic profile tomorrow AM -- Document I/O's including stool losses -- Probiotic added -- Encourage nutrition
[2016-06-21] MEDS ORDERED: DIPHENOXYLATE/ATROPINE 2.5/0.025MG TAB PO PRN (12:15)
[2016-06-21] MEDS: POT PHOSPHATE MONOBASIC W/ SOD TAB PO SCH ×3 (14:31→20:58)
--- NOTE | 2016-06-21 14:32 | DIAGNOSTIC IMAGING REPORT ---
[facility] CLINICAL HISTORY: Diarrhea. COMPARISON STUDY: KUB January 24, 2015. FINDINGS: Mild bibasilar opacities are present. Bowel gas pattern is normal. Surgical staple line projects over the rectum. There are several old right rib fractures. A few prominent loops of gas-filled colon are noted without evidence for a bowel obstruction. IMPRESSION: No radiographic evidence of a bowel obstruction Electronically signed by: Josh Flannery M.D. 06/21/2016 2:30 PM Dictated Date/Time: 06/21/2016 2:25 PM
--- NOTE | 2016-06-21 14:34 | Family Medicine Progress Note ---
Progress Note Date of Service Jun 21, 2016. Subjective feeling very upset due to diarrhea liquid stool no blood in stool Constitutional: No fever Respiratory: No shortness of breath Cardiovascular: No chest pain Abdomen: No nausea, No pain Objective Physical Exam General Appearance: no apparent distress Respiratory/Chest: lungs clear, no respiratory distress Cardiovascular: regular rate, rhythm Abdomen: normal bowel sounds, non tender, soft Neurologic/Psychiatric: alert, oriented x 3, + pertinent finding (right facial droop) Skin: warm/dry Assessment and Plan 75 yo F admitted after a fall, found to have hyponatremia (baseline sodium around 125-130, 115 on admission, now 120) and hypo-osmolality, likely from diuretics(HCTZ) use with poor fluid and food intake with underlying ?SIADH. Now with new pneumonia (community acquired vs aspiration) Acute hypoxic respiratory failure Resolved Had to be on BiPAP ? sec to Pneumonia Hyponatremia - hypovolemic with low baseline s/p 2 doses of Tolvaptan Na improving Continue fluid restrict 1.2-1.5 liters per day. Continue NSS Right lower lobe pneumonia - HCAP/CAP/Aspiration with underlying asthma Fever initially - none now, wbc elevation, respiratory failure Pulmonary consulted Received a dose of Vanc, now stopped since MRSA nares negative Continue Zosyn and Azithromycin - day 4 Speech evaluation completed - no sign of aspiration but concern of difficulty chewing due to facial weakness - pureed food recommended Continue inhalers. Weakness better today ? sec to dehydration/hyponatremia/deconditioning continue IV hydration. 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 Discussed with Dr. Irene. Will review EKG in am Diarrhea C diff - neg Check other stool studies Added probiotics Lomotil Leucocytosis Urine culture negative Likely from pneumonia Rheumatoid arthritis Continue hydroxychloroquine 200mg BID Osteoarthritis of knee Postpone knee surgery which was with Dr Cornell Voltaren gel/Tylenol Asthma Continue Simcor inhaler daily and Albuterol QID PRN Full code Heparin
[2016-06-21] MEDS: ASPIRIN 81 MG ECTAB PO SCH (21:00)
--- NOTE | 2016-06-21 23:05 | CARDIOLOGY CONSULTATION ---
DATE OF CONSULTATION: 06/21/2016 PERTINENT HISTORY: Mrs. Zepeda is a 75-year-old white female, admitted on the 17 of June after she had a fall in the shower. She was found to be significantly hyponatremic with a sodium of 112. The patient demonstrates some changes in her EKG, and therefore, this consultation was ordered. The patient has been treated appropriately for her hyponatremia. She has developed bilobar pneumonitis versus pneumonia and has been placed on antibiotics. EKG at the time of presentation noted normal sinus rhythm with PACs with aberrancy and an anterior T-wave abnormality. Follow up EKGs have noted a complete left bundle branch block. integrated program teacher has noted both QRS complexes. The patient has never known of a cardiac event. She has never experienced a myocardial infarction. She has never had a cardiac catheterization. She further denies syncope, presyncope, PND, orthopnea, palpitations, lower extremity edema or claudication. Currently, the patient is resting comfortably in bed without complaints. PAST MEDICAL HISTORY: 1. Hypertension. 2. COPD. 3. Seropositive rheumatoid arthritis. 4. History of pulmonary nodules. 5. History of colonic stricture. 6. Status post repair of left upper quadrant incisional hernia. 7. Chronic UTI. MEDICATIONS: 1. Aspirin 81 mg per day. 2. Heparin 5000 units subQ q. 12 hours. 3. Plaquenil 200 mg b.i.d. 4. Symbicort 160/4.5 one puff q.a.m. 5. Vitamin D 5000 units daily. 6. Piperacillin/tazobactam 3.375g IV q. 8 hours. 7. Azithromycin 500 mg IV daily. 8. Floranex 4 tabs t.i.d. 9. Neutra-Phos 1 tablet q.i.d. ALLERGIES: 1. AVELOX-RASH. 2. CIPROFLOXACIN-PSYCHOSIS. SOCIAL HISTORY: The patient is single and lives alone. Does not use tobacco or alcohol. FAMILY HISTORY: No early coronary artery disease. REVIEW OF SYSTEMS: A 10-point review of systems is negative except for that described above. PHYSICAL EXAMINATION: GENERAL: This is a thin, elderly white female lying supine in bed without complaints. VITAL SIGNS: Blood pressure is 100/55 with a regular pulse of 72. Respiratory rate is 18. The patient is afebrile at 36.5 degrees Celsius. Saturations are 96% on two liters nasal cannula. HEENT: Notes strabismus. NECK: Supple with full carotid upstrokes. There are no carotid bruits. Jugular venous pressure is flat at 90 degrees. There is no thyromegaly. CARDIOVASCULAR: Reveals a regular rhythm with a normal S1 and S2. No S3, S4 or murmurs are noted. LUNGS: Clear without rales, rhonchi or wheezes. ABDOMEN: Soft without bruits. EXTREMITIES: Reveal intact radial artery pulses bilaterally. Trace pretibial edema is noted. Numerous rheumatoid deformities noted on hands and feet. DATA: CBC notes hemoglobin of 13.3, hematocrit 36.0, white count 21.2, platelet count 235,000. Electrolytes note a sodium of 126, potassium 4.2, chloride 93, bicarb 23, BUN 7, creatinine 0.44, glucose 101. Magnesium level is 2.1. Phosphorus level is 1.9. TSH is normal at 3.5. Echocardiogram notes normal left ventricular systolic function with an ejection fraction of 60-65%. No obvious valvular pathology. Initial EKG notes sinus bradycardia with PACs with aberrancy. There is an anterior T-wave abnormality. Followup EKGs note sinus rhythm with a complete left bundle branch block. Review of cup trimming machine operator notes narrow complex and left bundle branch tracings. When the heart rate is below the mid 70s, a narrow complex is noted, when above the mid 70s a left bundle branch pattern is noted. IMPRESSION: Mrs. Zepeda was noted to have a change in her EKG. It appears that she has a rate related left bundle branch block. When her heart rate is about the mid 70s, she demonstrates a complete left bundle branch pattern. When less than the 70s she has a narrow complex. She demonstrates normal left ventricular systolic function by echocardiogram on this hospitalization. No further cardiac evaluation is necessary at this time. PLAN: 1. Continue current medications. 2. No further cardiac evaluation necessary. MTDD
[2016-06-22] VITALS (10 sets, daily range): BP systolic 131–160; BP diastolic 79–82; PULSE 56–72; TEMP 36.3–36.9; O2SAT 96–100
[2016-06-22] MEDS: D5W AND NSS 1,000 ML IV SCH
[2016-06-22] MEDS: PIPERACILL/TAZOBAC IV 3.375 GM in DEXTROSE 5% 100ML IV SCH ×3 (01:44→17:54)
[2016-06-22 07:01] LABS: BASO % 0.3 %; BASO ABS # 0.03 K/uL (0-0.2); COMPLETE YES; EOS % 1.7 %; HEMATOCRIT 32.5 % (37-47); IG% 1.1 %; LYMPH % 10.5 %; LYMPH ABS # 1.09 K/uL (1.2-3.4); MEAN CELL VOLUME 92.1 fL (80-100); MEAN CORPUSCULAR HEMOGLOBIN 32.9 pg (25-34); MEAN CORPUSCULAR HGB CONC 35.7 g/dl (32-36); MEAN PLATELET VOLUME 8.8 fL (7.4-10.4); MONO % 12.6 %; NEUT % 73.8 %; PLATELET COUNT 240 K/uL (130-400); RED BLOOD COUNT 3.53 M/uL (4.2-5.4); WHITE BLOOD COUNT 10.38 K/uL (4.8-10.8)
[2016-06-22 07:21] LABS: BUN/CREATININE RATIO 9.4 (10-20); CALCIUM 8.6 mg/dl (8.5-10.1); CREATININE 0.47 mg/dl (0.60-1.20); MAGNESIUM 1.8 mg/dl (1.8-2.4); PHOSPHORUS 2.6 mg/dl (2.5-4.9); POTASSIUM 3.5 mmol/L (3.5-5.1)
[2016-06-22] MEDS: BOOST VANILLA PUDDING CUP PO SCH ×2 (08:46→18:24)
[2016-06-22] MEDS: LACTOBACILLUS ACIDOPHILUS (FLORANEX) TAB PO SCH ×4 (08:47→21:09)
[2016-06-22] MEDS: MULTIVITAMIN TAB PO SCH (08:47)
[2016-06-22] MEDS: CHOLECALCIFEROL 1000 INTER.UNIT TAB PO SCH (08:48)
[2016-06-22] MEDS: HYDROXYCHLOROQUINE SULFATE 200 MG TAB PO SCH ×2 (08:48→21:12)
[2016-06-22] MEDS: POT PHOSPHATE MONOBASIC W/ SOD TAB PO SCH ×4 (08:49→21:12)
[2016-06-22] MEDS: BUDESONIDE/FORMOTEROL FUMARATE 160/4.5 60 PUFFS/INHALER INH SCH ×2 (08:50→21:10)
[2016-06-22] MEDS: DICLOFENAC SOD 1% GEL 100 GM TUBE EXT SCH ×2 (08:52→21:00)
[2016-06-22] MEDS: HEPARIN SOD 5000 UNIT/0.5 ML CARP SQ SCH ×2 (09:04→21:11)
[2016-06-22] MEDS: AZITHROMYCIN IV 500 MG in DEXTROSE 5% 250ML 250 ML IV SCH (09:05)
--- NOTE | 2016-06-22 09:31 | Family Medicine Progress Note ---
Progress Note Date of Service Jun 22, 2016. Subjective Pt evaluation today including: conversation w/ patient, physical exam, chart review, lab review, review of studies, review of inpatient medication list Voiding: griffin catheter in place Mrs eZpeda feels down today. Has a dry mouth on her fluid restricted diet and feels she is becoming weaker by the day as she is yet to get out of bed. Her joints feel more painful and stiff than usual with her RA which she puts down to prolonged bed rest and stopping her Abatacept and methotrexate. Medications Current Inpatient Medications Medications (Trade) Dose Ordered Sig/Garima Route Start Time Stop Time Status Last Admin Dose Admin Acetaminophen (Tylenol Tab) 650 mg Q4H PRN PO 06/16/16 22:15 07/16/16 22:14 Zolpidem Tartrate (Ambien Tab) 5 mg HSZ PRN PO 06/16/16 22:15 07/16/16 22:14 Nitroglycerin (Nitrostat Tab) 0.4 mg UD PRN SL 06/16/16 22:15 07/16/16 22:14 Albuterol (Ventolin Hfa Inhaler) 2 puffs QID PRN INH 06/16/16 22:15 07/16/16 22:14 Aspirin (Ecotrin Tab) 81 mg QPM PO 06/17/16 21:00 07/17/16 20:59 06/21/16 21:00 81 MG Budesonide/ Formoterol Fumarate (Symbicort 160/ 4.5 Inh) 120 puffs QAM INH 06/17/16 09:00 07/17/16 08:59 06/22/16 08:50 2 PUFFS Cholecalciferol (Vitamin D Tab) 5,000 inter.unit DAILY PO 06/17/16 09:00 07/17/16 08:59 06/22/16 08:48 5,000 INTER.UNIT Hydroxychloroquine Sulfate (Plaquenil Tab) 200 mg BID PO 06/17/16 09:00 07/17/16 08:59 06/22/16 08:48 200 MG Multivitamins (Multivitamin Tab) 1 tab QAM PO 06/17/16 09:00 07/17/16 08:59 06/22/16 08:47 1 TAB Lorazepam (Ativan Inj) 0.5 mg Q4H PRN IV 06/16/16 22:15 3/9/17 22:14 06/17/16 20:01 0.5 MG Diphenhydramine HCl 25 mg 25 mg Q4H PRN IV 06/16/16 22:15 07/16/16 22:14 Promethazine HCl/ Sodium Chloride (Phenergan Inj/ Nss 50ml) 50.5 ml @ 202 mls/hr Q4H PRN IV 06/16/16 22:15 07/16/16 22:14 Ondansetron HCl (Zofran Inj) 4 mg Q6H PRN IV 06/16/16 22:15 07/16/16 22:14 Ipratropium Hutchinson (Atrovent 0.02% 0.5MG/2.5ML Neb) 0.5 mg Q2H PRN INH 06/16/16 23:00 07/16/16 22:59 06/18/16 23:51 0.5 MG Levalbuterol (Xopenex 1.25MG/ 0.5ML Neb) 1.25 mg Q2H PRN INH 06/16/16 23:00 07/16/16 22:59 06/18/16 23:51 1.25 MG Heparin Sodium (Porcine) (Heparin Sq 5000 Unit/0.5ml) 5,000 unit Q12 SQ 06/17/16 21:00 07/17/16 20:59 06/22/16 09:04 5,000 UNIT Diclofenac Sodium 1 appln 1 appln BID EXT 06/17/16 21:00 07/17/16 20:59 06/22/16 08:52 1 APPLN Piperacillin Sod/ Tazobactam Sod/ Dextrose (Zosyn Iv/D5 100ml) 115 ml @ 28.75 mls/ hr Q8H IV 06/18/16 10:00 06/25/16 09:59 06/22/16 01:44 28.75 MLS/HR Piperacillin Sod/ Tazobactam Sod 1 ea 1 ea UD PRN N/A 06/18/16 04:30 07/18/16 04:29 Azithromycin 500 mg/Dextrose 255 ml @ 125 mls/hr DAILY IV 06/20/16 09:00 06/23/16 08:59 06/22/16 09:05 125 MLS/HR Dextrose/Sodium Chloride (D5W And Nss) 1,000 ml @ 75 mls/hr [id number] IV 06/19/16 18:45 07/19/16 18:44 06/22/16 00:00 75 MLS/HR Artificial Tears (Artificial Tears) 1 drops PRN PRN OP 06/20/16 13:15 07/20/16 13:14 Lactobacillus Acidophilus (Floranex Tab) 4 tab QIDM PO 06/20/16 17:00 07/20/16 16:59 06/22/16 08:47 4 TAB Enteral Nutritional Formula (Boost Pudding) 1 cup BIDM PO 06/21/16 08:00 07/21/16 07:59 Potassium/ Phosphorus/Sodium (Phospha 250 Neutral 155-852-130 Mg) 1 tab QID PO 06/21/16 13:00 07/21/16 12:59 06/22/16 08:49 1 TAB Diphenoxylate HCl/ Atropine (Lomotil Tab) 1 tab QID PRN PO 06/21/16 12:15 07/21/16 12:14 06/21/16 14:31 1 TAB Objective Vital Signs Date Time Temp Pulse Resp B/P Pulse Ox O2 Delivery O2 Flow Rate FiO2 06/22/16 09:27 96 Room Air 06/22/16 07:50 Nasal Cannula 3.0 06/22/16 07:48 36.9 72 18 160/80 96 Room Air 06/22/16 07:28 36.4 20 148/82 99 Nasal Cannula 2.0 06/22/16 05:00 98 Nasal Cannula 2.0 100 06/22/16 03:50 36.6 56 16 146/82 99 Room Air 06/22/16 00:02 98 Nasal Cannula 2.0 100 06/21/16 23:01 36.7 60 18 136/68 98 Nasal Cannula 2.0 06/21/16 20:20 98 Nasal Cannula 2.0 100 06/21/16 15:30 98 Room Air 06/21/16 15:27 36.5 68 18 140/62 97 3.0 06/21/16 11:34 36.5 73 18 93/55 96 Room Air Physical Exam General Appearance: WD/WN (appears general weak and tired), no apparent distress (appears tired) ENT: + pharyngeal erythema Neck: supple, no JVD, no carotid bruits, trachea midline Respiratory/Chest: + decreased breath sounds (throughout, no wheeze, crackles or rhonchi) Cardiovascular: regular rate, rhythm, no murmur Abdomen: normal bowel sounds, non tender, soft, + pertinent finding (prior abdominal surgical scars) Extremities: no pedal edema, no calf tenderness, + pertinent finding (synovial inflammation especially prominant in MCPJs b/l, ulnar deviation of MCPJs, Z thumbs, right shoulder abduction weakness from rotator cuff chornic pathology) Neurologic/Psychiatric: no motor/sensory deficits, oriented x 3, + facial droop (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), + depressed affect Laboratory Results 06/22/16 06:54 Red Blood Count 3.53, Mean Corpuscular Volume 92.1, Mean Corpuscular Hemoglobin 32.9, Mean Corpuscular Hemoglobin Concent 35.7, Mean Platelet Volume 8.8, Neutrophils (%) (Auto) 73.8, Lymphocytes (%) (Auto) 10.5, Monocytes (%) (Auto) 12.6, Eosinophils (%) (Auto) 1.7, Basophils (%) (Auto) 0.3, Neutrophils # (Auto ) 7.66, Lymphocytes # (Auto) 1.09, Monocytes # (Auto) 1.31, Eosinophils # (Auto ) 0.18, Basophils # (Auto) 0.03 06/22/16 06:54 Test 06/22/16 06:54 White Blood Count 10.38 K/uL (4.8-10.8) Red Blood Count 3.53 M/uL (4.2-5.4) Hemoglobin 11.6 g/dL (12.0-16.0) Hematocrit 32.5 % (37-47) Mean Corpuscular Volume 92.1 fL (80-100) Mean Corpuscular Hemoglobin 32.9 pg (25-34) Mean Corpuscular Hemoglobin Concent 35.7 g/dl (32-36) Platelet Count 240 K/uL (130-400) Mean Platelet Volume 8.8 fL (7.4-10.4) Neutrophils (%) (Auto) 73.8 % Lymphocytes (%) (Auto) 10.5 % Monocytes (%) (Auto) 12.6 % Eosinophils (%) (Auto) 1.7 % Basophils (%) (Auto) 0.3 % Neutrophils # (Auto) 7.66 K/uL (1.4-6.5) Lymphocytes # (Auto) 1.09 K/uL (1.2-3.4) Monocytes # (Auto) 1.31 K/uL (0.11-0.59) Eosinophils # (Auto) 0.18 K/uL (0-0.5) Basophils # (Auto) 0.03 K/uL (0-0.2) RDW Standard Deviation 44.6 fL (36.4-46.3) RDW Coefficient of Variation 13.3 % (11.5-14.5) Immature Granulocyte % (Auto) 1.1 % Immature Granulocyte # (Auto) 0.11 K/uL (0.00-0.02) Anion Gap 11.0 mmol/L (3-11) Est Creatinine Clear Calc Drug Dose 91.1 ml/min Estimated GFR () 111.2 Estimated GFR (Non- 95.9 BUN/Creatinine Ratio 9.4 (10-20) Calcium Level 8.6 mg/dl (8.5-10.1) Phosphorus Level 2.6 mg/dl (2.5-4.9) Magnesium Level 1.8 mg/dl (1.8-2.4) Albumin 2.5 gm/dl (3.4-5.0) Assessment and Plan 75 yo F admitted after a fall, found to have hyponatremia (baseline sodium around 125-130, 115 on admission, now 130) and hypo-osmolality, likely from diuretics(HCTZ) use with poor fluid and food intake with underlying ?SIADH. Concurrent pneumonia (community acquired vs aspiration) Weakness - feels she is weaker today despite improving Na. Likely due to RA stiffness. Will start on prednisone 40 mg daily (start in morning to avoid insomnia), will also give GI prophylactic coverage with this. Rheumatoid arthritis - Continue hydroxychloroquine 200mg BID - Holding methotrexate and Orencia secondary to concurrent infection - Start prednisone 40 mg daily for acute flare Acute hypoxic respiratory failure - remains on O2. Wean aim sats > 94%. No CO2 retention on ABG Hyponatremia - hypovolemic with low baseline. Secondary to diuresis, dehydration , diarrhea, SIADH. Urine Na post diuretics show inappropriate secretion however it has been appropriate since then and I suspect we will be able to lift her fluid restriction in the coming days. - s/p 2 doses of Tolvaptan - Continue fluid restrict 1.2-1.5 liters per day. - stop IVF. Monitor daily Possible bibasilar pneumonia vs. atelectasis - HCAP/CAP/Aspiration with underlying asthma Fever initially - wbc elevation, respiratory failure - Appreciate pulmonary recommendations - Continue Zosyn. Given immunosuppression with RA medications will continue for 7 days despite diarrhea. - Azithromycin stopped - Continue Symbicort (switch to 2 puffs BID) - Switch xopenex/atrovent to duonebs Abnormal EKG LBBB during this admission (not present on EKG on ) Echo done after development of LBBB showed no WMA Troponin done 6 hours post EKG with LBBB was negative. Cardiology consulted but no note seen. Will discuss with Dr Irene however with above findings it is unlikely to be significant. Diarrhea - x2-4 loose BM daily. Likely secondary to antibiotic use. History of colonic stricture, benign, with a resultant left upper quadrant incisional hernia after repair of the stricture - C diff - neg - Check other stool studies - Continue probiotics - Continue Lomotil Leucocytosis - improved Urine culture negative Likely from pneumonia Osteoarthritis of knee - Postpone TKA with Dr Cornell (06/17/15) - Voltaren gel/Tylenol COPD with asthma - Continue Symbicort inhaler BID - Duonebs Q2H PRN Hypertension - stopped [place]/HCZT 25/25 daily due to hyponatremia - Start diltiazem ER 120mg (on 240 mg as O/P but only recently increased to this ) Anxiety - Continue O/P medication. Alprazolam 0.25mg HS PRN as O/P. Ativan PRN as I/P not used since 06/17. Will stop ativan in case this contributed towards her hypoxia. Zolpidem prescribed for sleep is required. - Consider SSRI use given current low mood however will leave this up to her PCP as it is more of a longer term commitment. Code Full VTE Prophylaxis Heparin 5000 units Q12H Disposition - continued hospital stay to make sure weakness is more related to deconditioning and RA rather than worsening infeciton. She is also currently on IV Abx (Zosyn). OOB to chair, PT/OT/discharge planning. Attending Attestation: Pt seen/examined, chart reviewed, care plan d/w PGY2 Dr. Jamin Samuel. I agree with the mckeon components of his progress note documentation with the following exceptions: none. Main complain is that of right shoulder pain - receives intra-articular injections by Dr. Mk Lares, last injection <30 days ago. Also c/o stiffness in numerous joints including hands. Appetite fair/good. Still w/ O2 requirement. VSS, afebrile gen - sitting in chair, looks ill and weak face - resolving ecchymoses mouth - thrush on tongue neck - no JVD heart - RRR lungs - no wheeze no rales abd - soft musculo - mild effusion right shoulder; decreased active/passive ROM handgrips about 4-5/5 b/l ulnar deviation and swan deformities of fingers scattered synovitis multiple small joints fingers labs - Na 131 A/P: 1. resolving hyponatremia 2. chronic rheumatoid arthritis with current exacerbation 3. recent pneumonia 4. failure to thrive 5. thrush defer management of #1 to nephrology; but agree w/ stopping IVF; repeat BMP am prednisone 40mg daily for RA cont IV zosyn x 7 days; stop zithromax today (day 5 today) PT, OT nystatin solution for thrush Raysa GUERRERO MD Resident Tracking Resident Involvement: Resident Care Provided Care Provided: Adult Hospital Medicine
--- NOTE | 2016-06-22 10:22 | NEPHROLOGY PROGRESS NOTE ---
DATE: 06/22/2016 SUBJECTIVE: Ms. Zepeda is generally feeling somewhat better. However, she does complain of having diarrhea and some fecal incontinence. She denies having any abdominal pain and she has had no nausea or vomiting. She denies having any chest pain or shortness of breath. She has a minimal, but nonproductive cough. She continues to wear nasal oxygen. OBJECTIVE: GENERAL: On physical exam at the current time, Ms. Zepeda appears obviously chronically ill, but better than she had at the time of admission. VITAL SIGNS: She is afebrile (36.9), her blood pressure 160/80, her pulse 72 and regular, respiratory rate 18, her pulse ox 96% on 3 liters of oxygen via nasal cannula. SKIN: Shows normal skin turgor. She has multiple scars from prior surgical procedures including to her abdomen and right ankle. She has some ecchymoses beneath her left thigh, which is slowly improving. There is no rash or infiltrative skin disease. LYMPHATICS: Show no palpable lymphadenopathy. HEAD: Grossly normal. 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 EYES: Her eyes are grossly normal. The ocular fundi were not examined. EARS, NOSE, MOUTH AND THROAT: Unremarkable. Her oral mucous membranes are moist. NECK: Supple. She has no obvious jugular venous distention. There is no carotid bruit and no thyromegaly. CHEST: Shows an occasional inspiratory wheeze. She has some rhonchi and coarse rales at the bases, but more prominent on the right than on the left. CARDIAC: Shows a regular rhythm, S1 and S2 are normal. She has a soft systolic murmur at the base. ABDOMEN: Shows a ventral hernia to the left of the midline. Bowel sounds are present. There is no abdominal tenderness. EXTREMITIES: Show changes of deforming rheumatoid arthritis, particularly in her hands and feet. She has obvious rheumatoid and degenerative changes involving both knees. Peripheral pulses are difficult to feel. She has normal capillary refill on her fingers and toes. She has no acrocyanosis. NEUROLOGIC: Shows the right Muro's palsy. She is far less lethargic then she was and carries on a normal conversation. She does have a depressed affect. Pertinent laboratory work from today shows a white count down to 10,380 with an essentially normal differential. Her hemoglobin is 11.6, her hematocrit 32.5, her platelet count 240,000. Her clinical chemistries show a sodium of 131 mmol/L, potassium 3.5 mmol/L, chloride 94 mmol/L, and CO2 content 26 mmol/L. Her BUN is down to 4. Her serum creatinine 0.47. Her calcium is 8.6 mg/dL, phosphate 2.6 mg/dL and magnesium 1.8 mg/dL. Her serum albumin is 2.5. ASSESSMENT: Significant improvement in Ms. Zepeda. Her sodium is essentially corrected. Certainly, with her elevated blood pressure, I think that we can stop her IV saline. She has a pneumonia, her chest sounds somewhat clear and her white count is improved on antibiotics. She is having some diarrhea, apparently antibiotic induced. RECOMMENDATIONS: I would discontinue her IV saline and I have taken the liberty of ordering that. We can watch her fluid restriction and probably eased up on that if her serum sodium remains stable. Continue her antibiotics. Emphasis on nutrition and ambulation, at least to the point where she is out of bed and doing transfers. No other immediate recommendations from a renal hypertension standpoint. I will continue to follow her with you.
--- NOTE | 2016-06-22 15:22 | PULMONARY PROGRESS NOTE ---
DATE: 06/22/2016 TIME: 2:20 p.m. SUBJECTIVE: The patient complains of diarrhea. She seems like she is depressed. She denies shortness of breath. Her cough is mild and dry. She is complaining that she is thirsty and is not allowed to drink very much. She is not complaining of abdominal pain. She told me that she is having up to 10 liquid bowel movements per day. I was able to speak with some nursing staff who was with her earlier today and they indicated that her stools were not watery, but rather just soft and two episodes today. OBJECTIVE: GENERAL: The patient looks comfortable from a pulmonary perspective. She was not having any overt shortness of breath. There was no accessory muscle use. VITAL SIGNS: Current temperature is 36.9 degrees. Heart rate is 72 per minute. The blood pressure is 160/80. The respiratory rate is 18 breaths per minute. HEENT: She is noted to have a disconjugate gaze. Pupils did react to light. Nares were unremarkable. Mouth exam appeared somewhat dry. NECK: Palpation of the neck reveals no lymph nodes. EXTREMITIES: She has ecchymosis in the area of the left thigh. This was related to the fall she had prior to coming. CHEST: Showing a dorsal kyphosis. LUNGS: Auscultation revealed very few scattered rhonchi bilaterally. Oxygen saturation was 96% on 2.5 liters. ABDOMEN: Shows scars from prior surgeries. She has a large area of herniation on the left side. Bowel sounds were present. There was no tenderness to palpation or mass. EXTREMITIES: Showed no cyanosis, clubbing or edema. LABORATORY DATA: White count today is 10.38. She had been as high as 24.66 on June 17. Hemoglobin today is 11.6. That had been 14 upon admission. Platelet count is 240,000. Electrolytes show sodium 131, potassium 3.5, chloride 94, bicarbonate 26. It is notable that her sodium on admission was 120. The BUN is 4 with a creatinine of 0.47. Blood sugar was 108. Magnesium is 1.8. Phosphorus is 2.6. Calcium is 8.6. IMPRESSIONS: 1. Bilateral pneumonia - improved. 2. Asthma - stable. 3. Rheumatoid arthritis with history of lung nodules. 4. Hyponatremia. COMMENTS AND RECOMMENDATIONS: The patient clinically seems to be doing well from a pulmonary perspective. She is still on azithromycin IV. She is on Zosyn. She is on Symbicort daily. She has p.r.n. respiratory treatments. She also has p.r.n. Ventolin HFA. I would advise increasing her activity level to tolerance. She sounds anxious to get out of bed. The chest x-rays have improved. The initial one on the did not show definite infiltrates, but on the , there clearly appeared to be bibasilar infiltrates. On the , the opacification had resolved. Thus, the question is did she have atelectasis in light of the rapid resolution. She has been in the hospital since the late night hours of June 16. Her highest temperature this hospital stay was 38.2 and was soon after admission. I would continue with the OT and PT. AGNES
[2016-06-22] MEDS: NYSTATIN SUSP 500,000 U/5 ML UDC PO SCH ×2 (17:49→21:10)
[2016-06-22] MEDS ORDERED: ALBUT/IPRATROP 3MG/0.5MG NEB 3 ML VIAL INH PRN (20:00)
[2016-06-22] MEDS: ASPIRIN 81 MG ECTAB PO SCH (21:09)
[2016-06-23] MEDS: PIPERACILL/TAZOBAC IV 3.375 GM in DEXTROSE 5% 100ML IV SCH ×2 (02:11→10:36)
[2016-06-23 07:34] LABS: BUN/CREATININE RATIO 14.3 (10-20); CALCIUM 8.6 mg/dl (8.5-10.1); CREATININE 0.47 mg/dl (0.60-1.20); MAGNESIUM 1.8 mg/dl (1.8-2.4); POTASSIUM 3.4 mmol/L (3.5-5.1)
[2016-06-23 07:56] VITALS: BP 135/77; PULSE 67; TEMP 36.5; O2SAT 94
[2016-06-23] MEDS: BOOST VANILLA PUDDING CUP PO SCH (08:06)
[2016-06-23] MEDS: POT PHOSPHATE MONOBASIC W/ SOD TAB PO SCH ×2 (08:06→13:20)
[2016-06-23] MEDS: NYSTATIN SUSP 500,000 U/5 ML UDC PO SCH ×2 (08:07→13:20)
[2016-06-23] MEDS: MULTIVITAMIN TAB PO SCH (08:10)
[2016-06-23] MEDS: HYDROXYCHLOROQUINE SULFATE 200 MG TAB PO SCH (08:10)
[2016-06-23] MEDS: LACTOBACILLUS ACIDOPHILUS (FLORANEX) TAB PO SCH ×2 (08:10→13:20)
[2016-06-23] MEDS: BUDESONIDE/FORMOTEROL FUMARATE 160/4.5 60 PUFFS/INHALER INH SCH ×2 (08:11→08:12)
[2016-06-23] MEDS: CHOLECALCIFEROL 1000 INTER.UNIT TAB PO SCH (08:11)
[2016-06-23] MEDS: HEPARIN SOD 5000 UNIT/0.5 ML CARP SQ SCH (08:16)
[2016-06-23] MEDS: DICLOFENAC SOD 1% GEL 100 GM TUBE EXT SCH (08:26)
[2016-06-23] MEDS ORDERED: DILTIAZEM HCL 120 MG ER CAP PO SCH ×2 (09:00)
[2016-06-23] MEDS ORDERED: PANTOprazole SOD 40 MG TAB PO SCH (09:00)
--- NOTE | 2016-06-23 09:02 | Family Medicine Progress Note ---
Progress Note Date of Service Jun 23, 2016. Medications Current Inpatient Medications Medications (Trade) Dose Ordered Sig/Garima Route Start Time Stop Time Status Last Admin Dose Admin Acetaminophen (Tylenol Tab) 650 mg Q4H PRN PO 06/16/16 22:15 07/16/16 22:14 Zolpidem Tartrate (Ambien Tab) 5 mg HSZ PRN PO 06/16/16 22:15 07/16/16 22:14 Nitroglycerin (Nitrostat Tab) 0.4 mg UD PRN SL 06/16/16 22:15 07/16/16 22:14 Albuterol (Ventolin Hfa Inhaler) 2 puffs QID PRN INH 06/16/16 22:15 07/16/16 22:14 Aspirin (Ecotrin Tab) 81 mg QPM PO 06/17/16 21:00 07/17/16 20:59 06/22/16 21:09 81 MG Cholecalciferol (Vitamin D Tab) 5,000 inter.unit DAILY PO 06/17/16 09:00 07/17/16 08:59 06/23/16 08:11 5,000 INTER.UNIT Hydroxychloroquine Sulfate (Plaquenil Tab) 200 mg BID PO 06/17/16 09:00 07/17/16 08:59 06/23/16 08:10 200 MG Multivitamins (Multivitamin Tab) 1 tab QAM PO 06/17/16 09:00 07/17/16 08:59 06/23/16 08:10 1 TAB Lorazepam (Ativan Inj) 0.5 mg Q4H PRN IV 06/16/16 22:15 07/16/16 22:14 06/17/16 20:01 0.5 MG Diphenhydramine HCl 25 mg 25 mg Q4H PRN IV 06/16/16 22:15 07/16/16 22:14 Promethazine HCl/ Sodium Chloride (Phenergan Inj/ Nss 50ml) 50.5 ml @ 202 mls/hr Q4H PRN IV 06/16/16 22:15 07/16/16 22:14 Ondansetron HCl (Zofran Inj) 4 mg Q6H PRN IV 06/16/16 22:15 07/16/16 22:14 Heparin Sodium (Porcine) (Heparin Sq 5000 Unit/0.5ml) 5,000 unit Q12 SQ 06/17/16 21:00 07/17/16 20:59 06/23/16 08:16 5,000 UNIT Diclofenac Sodium 1 appln 1 appln BID EXT 06/17/16 21:00 07/17/16 20:59 06/23/16 08:26 1 APPLN Piperacillin Sod/ Tazobactam Sod/ Dextrose (Zosyn Iv/D5 100ml) 115 ml @ 28.75 mls/ hr Q8H IV 06/18/16 10:00 06/25/16 09:59 06/23/16 02:11 28.75 MLS/HR Piperacillin Sod/ Tazobactam Sod 1 ea 1 ea UD PRN N/A 06/18/16 04:30 07/18/16 04:29 Dextrose/Sodium Chloride (D5W And Nss) 1,000 ml @ 75 mls/hr [id number] IV 06/19/16 18:45 07/19/16 18:44 Future Hold 06/22/16 00:00 75 MLS/HR Artificial Tears (Artificial Tears) 1 drops PRN PRN OP 06/20/16 13:15 07/20/16 13:14 Lactobacillus Acidophilus (Floranex Tab) 4 tab QIDM PO 06/20/16 17:00 07/20/16 16:59 06/23/16 08:10 4 TAB Enteral Nutritional Formula (Boost Pudding) 1 cup BIDM PO 06/21/16 08:00 07/21/16 07:59 06/23/16 08:06 1 CUP Potassium/ Phosphorus/Sodium (Phospha 250 Neutral 155-852-130 Mg) 1 tab QID PO 06/21/16 13:00 07/21/16 12:59 06/23/16 08:06 1 TAB Diphenoxylate HCl/ Atropine (Lomotil Tab) 1 tab QID PRN PO 06/21/16 12:15 07/21/16 12:14 06/21/16 14:31 1 TAB Nystatin (Mycostatin Susp) 5 ml QID PO 06/22/16 17:00 06/29/16 16:59 06/23/16 08:07 5 ML Albuterol/ Ipratropium (Duoneb) 3 ml Q2HWA PRN INH 06/22/16 20:00 07/22/16 19:59 Diltiazem HCl (Dilacor Xr Cap) 120 mg QAM PO 06/23/16 09:00 07/23/16 08:59 06/23/16 08:07 120 MG Budesonide/ Formoterol Fumarate (Symbicort 160/ 4.5 Inh) 2 puffs BID INH 06/22/16 21:00 07/22/16 20:59 06/23/16 08:12 2 PUFFS Prednisone (PredniSONE TAB) 40 mg QAM PO 06/23/16 09:00 07/23/16 08:59 06/23/16 08:09 40 MG Pantoprazole Sodium (Protonix Tab) 40 mg QAM PO 06/23/16 09:00 07/23/16 08:59 06/23/16 08:09 40 MG Objective Vital Signs Date Time Temp Pulse Resp B/P Pulse Ox O2 Delivery O2 Flow Rate FiO2 06/23/16 07:56 36.5 67 20 135/77 94 Nasal Cannula 3.0 06/22/16 23:23 98 Nasal Cannula 2.0 100 06/22/16 23:20 36.3 69 18 131/79 100 Nasal Cannula 2.0 06/22/16 19:49 98 Nasal Cannula 2.0 100 06/22/16 15:38 Nasal Cannula 3.0 06/22/16 15:27 36.8 66 20 142/80 96 06/22/16 09:27 96 Nasal Cannula 2.5 Laboratory Results 06/23/16 06:35 Test 06/23/16 06:35 Anion Gap 11.0 mmol/L (3-11) Est Creatinine Clear Calc Drug Dose 91.1 ml/min Estimated GFR () 111.2 Estimated GFR (Non- 95.9 BUN/Creatinine Ratio 14.3 (10-20) Calcium Level 8.6 mg/dl (8.5-10.1) Phosphorus Level 3.0 mg/dl (2.5-4.9) Magnesium Level 1.8 mg/dl (1.8-2.4) Albumin 2.4 gm/dl (3.4-5.0)
--- NOTE | 2016-06-23 10:20 | NEPHROLOGY PROGRESS NOTE ---
DATE: 06/23/2016 DATE: 06/23/2016. SUBJECTIVE: Ms. Zepeda says that she is feeling reasonably well. However, she continues to have a number of concerns that are more mental than they are physical. She denies having any current pain. She has no nausea or vomiting. She does not feel particularly short of breath. She has a minimal but nonproductive cough. She has had no shaking chills or sweats. She is having problems with frequent bowel movements. That has been an issue since she has been taking her IV antibiotics. OBJECTIVE: GENERAL: On physical exam, she appears as a chronically ill woman who did not appear to be in any significant physical distress but was obviously anxious and somewhat depressed. VITAL SIGNS: She is afebrile (36.5), her blood pressure 135/77, pulse 67 and regular, respiratory rate 20, pulse ox 94-100% on 2 liters of oxygen via nasal cannula. SKIN: Shows normal skin turgor. There is no obvious rash or infiltrative skin disease. She has an ecchymotic area just beneath her left eye. 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 LYMPHATICS: Show no palpable lymphadenopathy. HEAD: Normal. 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 EYES: Grossly normal. The ocular fundi were not examined. EARS, NOSE, MOUTH AND THROAT: All unremarkable. Her oral mucous membranes are moist. NECK: Supple. She has no jugular venous distention. There is no carotid bruit and there is no thyromegaly. CHEST: Relatively clear to auscultation. I hear no current wheezes, rales or rhonchi, although breath sounds are somewhat diminished at the bases. CARDIAC EXAMINATION: Shows a regular rhythm. S1 and S2 are normal. There is a soft systolic murmur at the base. ABDOMEN: Shows a ventral hernia to the left of midline. Bowel sounds are present. She has no abdominal tenderness. EXTREMITIES: Show changes of the deforming rheumatoid arthritis in her hands and feet. She has obvious rheumatoid and degenerative changes involving both knees. Peripheral pulses are diminished but present. She has reasonably good capillary refill in her fingers and toes. NEUROLOGIC EXAMINATION: Shows the right Muro's palsy. She is generally weak but awake and alert. LABORATORY DATA: Pertinent laboratory work from today shows a sodium of 130 mmol/L, potassium 3.4 mmol/L, chloride 94 mmol/L, and CO2 content 25 mEq/L. Her BUN is 7, creatinine 0.47. Her serum calcium is 8.6. Her phosphate 3.0. Her magnesium 1.8. Her serum albumin 2.4. ASSESSMENT: Ms. Zepeda remains stable. At this point, will need to start to investigate some intermediate care facility. Previously she had gone to [facility]. I am sure she will object to that but nonetheless since though she gains a certain degree of strength after this illness she is going to need some help that she does not have at home. RECOMMENDATIONS: No change from the renal standpoint. I would continue to watch her electrolytes and minimize her oral fluid intake to about 1.5 liters a day.
[2016-06-23] MEDS ORDERED: NYSS5 PO (13:29)
[2016-06-23] MEDS ORDERED: LCTX PO (13:29)
[2016-06-23] MEDS ORDERED: PRT40 PO (13:29)
[2016-06-23] MEDS ORDERED: POTTAB2 PO (13:29)
[2016-06-23] MEDS ORDERED: IPRASOL4 INH (13:29)
[2016-06-23] MEDS ORDERED: SYMIN160 INH (13:29)
[2016-06-23] MEDS ORDERED: DILT120T8 PO (13:29)
[2016-06-23] MEDS ORDERED: VLTG EXT (13:29)
[2016-06-23] MEDS ORDERED: LMTHP PO (13:29)
--- NOTE | 2016-06-23 13:37 | PROGRESS NOTE ---
DATE: 06/23/2016 PULMONARY PROGRESS NOTE PROBLEM LIST: Includes: 1. Bilateral pneumonia which is improving. 2. Asthma, which is stable. 3. Rheumatoid arthritis with history of lung nodule. SUBJECTIVE: The patient reports that she is doing better today. She states that her breathing is doing good. She states that she has no complaints today. She denies any shortness of breath. She states she has an occasional cough, but it is continued to improve. She has not noticed any wheezing. She has not had any increased shortness of breath. She denies any chest pain, denies any abdominal pain. When discussing her diarrhea, she states that she was doing well; however, they just stopped the antibiotic for today and she anticipated that she would start with some diarrhea because of the antibiotic. Otherwise no complaints. The patient states that therapy is coming down to evaluate her and that there is potential that she may be going into [facility] at some point, possibly today. OBJECTIVE: GENERAL: The patient is a well-nourished, well developed white female, lying in bed. She is alert, interactive and cooperative. VITAL SIGNS: Temp 36.5, pulse 67, respirations 20, blood pressure is 135/77, pulse ox is 94-98% on 2 liters. NECK: Short, supple. No mass. No adenopathy. No bruit. CHEST: Diminished breath sounds bilaterally. No wheeze or rales noted, no rhonchi noted. CARDIOVASCULAR: Regular rate and rhythm. No murmurs, gallops or rubs noted. ABDOMEN: Bowel sounds are present. Abdomen soft, nontender. No tenderness to palpation. EXTREMITIES: No erythema, no edema, no cyanosis or clubbing. LABORATORY DATA: Shows a sodium of 138, potassium 3.4, chloride 94. IMAGING DATA: No new imaging data. IMPRESSION: 1. A 75-year-old female with bilateral pneumonia which is improved. Overall the patient is pretty much back to her baseline from a breathing standpoint at this time and is still requiring a little bit of oxygen. 2. Asthma, improving. 3. Hypernatremia. The patient is on fluid restriction. PLAN: At this point is for PT, OT to evaluate her with possible transition to a [place] [facility] for rehabilitation. At this time from pulmonary standpoint, she seems to be improving. We will continue to monitor through hospitalization. AGNES
[2016-06-23 14:30] VITALS: BP 135/77; PULSE 67; TEMP 36.5; O2SAT 94
[2016-06-23 14:31] VITALS: BP 146/89; PULSE 69; O2SAT 93
[2016-06-23] MEDS ORDERED: AMOX875T PO (14:45)
[2016-06-23] MEDS ORDERED: METH2.5T PO (14:53)
[2016-06-23] MEDS ORDERED: ORNI125 SQ (14:53)
--- NOTE | 2016-06-23 15:02 | Discharge Instructions ---
Discharge Instructions Admission Reason for Admission: Hypo-Osmolality And Hyponatremia (Jamin Samuel MD) Discharge Discharge Diagnosis / Problem: Syncope, hyponatremia (Jamin Samuel MD) Discharge Goals Goal(s): Improve function, Increase independence (Jamin Samuel MD) Activity Recommendations Activity Limitations: resume your previous activity Lifting Limitations: none . (Jamin Samuel MD) Instructions / Follow-Up Instructions / Follow-Up You were admitted after a syncopal episode and on admission diagnosed with low Na (112). This was thought secondary to dehydration and spironolactone/HCZT which was stopped. 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 CXR showed pneumonia and you were treated with 5 days of Zosyn for this and should continue 2 days of Augmentin on discharge. You have also been requiring O2 on exertion and should continue this at [facility] trying to wean off Prednisone taper was started due to exacerbation of your RA due to stopping methotrexate and Orencia due to ongoing infection. Recommendation for restarted these are in your medication list. Pantoprazole was started as GI prophylaxis while on prednisone. You have been having diarrhea secondary to antibiotics. c.diff negative. Started on probiotics and Lomotil for this. This should be continually evaluated by your doctors at [facility]. You are now medically stable for discharge but due to deconditioning require ongoing rehabilitation for which you have selected [facility]. Follow up with doctors at [facility] within 1-2 days with repeat BMP in 1-2 days. (Jamin Samuel MD) Current Hospital Diet Patient's current hospital diet: Regular Diet, Low Fiber Diet (Jamin Samuel MD) Discharge Diet Recommended Diet: Regular Diet, Low Fiber Diet Fluid Restriction: None (Jamin Samuel MD) Pending Studies Studies pending at discharge: yes List of pending studies: Giardia (Jamin Samuel MD) Medical Emergencies . Who to Call and When: Medical Emergencies: If at any time you feel your situation is an emergency, please call 911 immediately. . (Jamin Samuel MD) Non-Emergent Contact Non-Emergency issues call your: Primary Care Provider . (Jamin Samuel MD) . "Provider Documentation" section prepared by Jamin Samuel. (Jamin Samuel MD) Attending Attestation: Pt seen & examined with PGY2 Dr. Jamin Samuel on the day of discharge and I agree with his discharge instructions as outlined. Jamin Maurer MD (Jamin Maurer MD) VTE Core Measure Inpt VTE Proph given/why not?: Unfractionated heparin SQ, SCD's (Jamin Samuel MD) Resident Tracking Resident Involvement: Resident Care Provided Care Provided: Adult Hospital Medicine (Jamin Samuel MD)
[2016-06-23] MEDS ORDERED: PRED10TA PO (15:05)
--- NOTE | 2016-06-23 21:47 | Discharge Summary ---
Discharge Summary Admission Date: Jun 16, 2016 at 22:08 Discharge Date: Jun 23, 2016 Discharge Disposition: Home Principal Diagnosis: Hyponatremia secondary to SIADH, dehydration and diuretics Problems/Secondary Diagnoses: Syncope Consultations: Nephrology Pulmonology (Jamin Samuel MD) Problems/Secondary Diagnoses: 1. rheumatoid arthritis with exacerbation 2. osteoarthritis 3. chronic anxiety 4. 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 hypertension 7. osteoporosis 8. history of urinary tract infections 9. community-acquired pneumonia 10. antibiotic-associated diarrhea Procedures: head CT - negative for stroke/ICH (Jamin Maurer MD) Medication Reconciliation New Medications: Abatacept (Orencia) 125 Mg/1 Ml Inj 125 MG SQ Q7D, #4 EA Takes once weekly on . To be restarted 06/25/16 Amoxicillin & Pot Clavulanate (Augmentin 875-125 mg) 1 Tab Tab 1 TAB PO BID for 2 Days, #4 TAB Methotrexate Sodium (Methotrexate) 2.5 Mg Tab 10 MG PO Q7D, #4 TAB Takes once weekly on Wednesday. To restart 07/01/16. Prednisone Tab (Prednisone) 10 Mg Tab 40 MG PO UD, #20 TAB Take 40 mg for 2 day then 30 mg for 2 days then 20 mg for 2 days then 10 mg for 2 days then stop Diclofenac Sod (Voltaren) 100 Appln/100 Gm Gel 1 APPLN EXT BID for 30 Days Diphenoxylate/Atropine (Diphenoxylate/Atropine 2.5-0.025 mg) 1 Tab Tab 1 TAB PO QID PRN for Diarrhea, #10 TAB Ipratropium-Albuterol (Duoneb) 3 Ml Nebu 3 ML INH Q2HWA PRN for Wheezing for 7 Days Lactobacillus Acidophilus (Floranex) 1 Tab Tab 1 TAB PO QIDM for 14 Days, TAB Nystatin (Nystatin) 5 Ml Susp 5 ML PO QID for 5 Days Pantoprazole (Pantoprazole Sodium) 40 Mg Tab 40 MG PO QAM for 7 Days, #7 TAB Pot Phosphate Monobasic W/ Sod (Phospha 250 Neutral) 1 Tab Tab 1 TAB PO BID for 7 Days, #14 TAB Changed Medications: Budesonide/Formoterol Fumarate (Symbicort 160/4.5 Inhaler) 120 Puffs/ Aero 2 PUFF INH BID, #20 (Changed from: 1 PUFF; QAM) Diltiazem Hcl (Cardizem) 120 Mg Tab 120 MG PO DAILY for 30 Days (Changed from: BID) Continued Medications: Albuterol Hfa (Ventolin Hfa) 200 Puffs/25866 Mcg Aers 2 PUFFS INH QID PRN for Shortness of Breath, #1 INHALER Aspirin (Aspirin Ec) 81 Mg Tab 81 MG PO QPM Biotin (Biotin 5000) 5 Mg Cap 5 MG PO Q2D Cholecalciferol (Vitamin D3) 1,000 Unit Tab 5000 UNITS PO DAILY for 90 Days, TAB 3 Refills Hydroxychloroquine Sulfate (Plaquenil) 200 Mg Tab 200 MG PO BID, TAB Multivitamin (Multivitamin) Tab 1 TAB PO QAM, TAB Discontinued Medications: Hctz/Spironolactone 25MG/25MG (Aldactazide 25MG/25MG) 1 Tab Tab 1 TAB PO BID, TAB Discharge Exam Mrs Zepeda continues to feels weak but much improved since admission. As per nursing staff she does appear brighter and will eat more when they leave the room. No episodes of diarrhea overnight. Review of Systems: Constitutional: No chills, No fever Respiratory: + cough, + dyspnea on exertion, No wheezing Cardiovascular: No chest pain Abdomen: No GI bleeding, No constipation, No diarrhea, No nausea, No pain, No vomiting Psychiatric: + depression symptoms Endocrine: + fatigue Hematologic / Lymphatic: No abnormal bleeding/bruising Integumentary: No rash Physical Exam: General Appearance: WD/WN, no apparent distress Eyes: normal inspection ENT: normal ENT inspection Neck: supple, no JVD Respiratory/Chest: chest non-tender, no respiratory distress, no accessory muscle use, + decreased breath sounds (poor inspiratory effort throughout, no wheezing, crackles or rhonchi) Cardiovascular: regular rate, rhythm, no murmur, normal peripheral pulses Abdomen / GI: normal bowel sounds, non tender, soft Extremities: no calf tenderness, normal capillary refill, no pedal edema, + pertinent finding (chronic rheumatoid arthritis changes, notable synovial swellings in MCPJs) Neurologic/Psychiatric: alert, oriented x 3, + depressed affect (Jamin Samuel MD) Hospital Course Mrs Zepeda is a 75 yo female admitted for a fall. No injuries were sustained from the fall, CT head showed nill acute (old infarcts noted). however she was found to have severe hyponatremia on routine labs. She was due to have a TKA by Dr Cornell the day after admission which has been postponed. Initial urine sodium was high therefore she was diagnosed with SIADH however this was just after taking diuretics which may have been the cause. Subsequent urine sodium levels were appropriately low after stopping her spironolactone and HCZT. She was treated for SIADH with fluid restriction and x2 doses of tolvaptan. Her diuretics have been stopped. Her sodium has now normalized to around 130 which is chronically stable for her. In addition she was treated for pneumonia with Zosyn for 5 days, switched to Augmentin for 2 days on discharge. Her methotrexate and Orencia was stopped while treating for pneumonia. Recommend restarting methotrexate on 07/01/16 and Orencia on 06/25/16 as long as she continues to improving. She was becoming increasing stiff from her RA due to stopping these medications therefore a prednisone taper was started with PPI coverage. She had diarrhea associated with the antibiotics so was started on probiotics and Lomotil PRN. C. diff was negative. Minaya catheter was placed on admission. She is refusing this to come out at present as she feels her mobility is not good enough to use a commode. She is now medically stable for discharge but heavily deconditioned therefore is being transferred to [facility] for continuing rehabilitation. Total Time Spent: Less than 30 minutes This includes examination of the patient, discharge planning, medication reconciliation, and communication with other providers. (Jamin Samuel MD) Resident Physician Supervision Note: I was present with PGY2 Dr. Jamin Samuel during the discharge history and exam. I discussed the case with the resident and agree with the findings and plan as documented in this discharge summary. Any exceptions or clarifications are listed here: total time spent on discharge activities was 45 minutes. 75yo female with h/o HTN, rheumatoid arthritis, and asthma who presented after having a fall at her home. This had been preceded by dizziness. She also reported nausea for several weeks prior to admission and simply not feeling well. At presentation she was markedly hyponatremic with sodium level of 112. She also had evidence of pneumonia. Her clinical course was marked by steady improvement in her sodium level. On day of discharge her sodium was 130. The etiology of her low sodium was multifactorial including HCTZ use, poor oral intake, and possibly SIADH. Due to severe deconditioning she will transfer to SNF for rehab. She will complete a course of prednisone for rheumatoid arthritis flare. She will also complete 2 more days of antibiotics for pneumonia. Discharge exam: gen - weak appearing, but NAD; a/o x 3 mouth - resolving thrush neck - no JVD heart - RRR, s1, s2 lungs - CTA b/l abd - soft, NT musculo - multiple small joints of hands with synovitis; right shoulder with mild synovitis; deformities of fingers/wrists noted Documented By: Jamin Maurer MD Total Time Spent: Greater than 30 minutes (Jamin Maurer MD) Discharge Instructions Please refer to the electronic Patient Visit Report (Discharge Instructions) for additional information. (Jamin Samuel MD) Follow-Up Follow up with Doctors at [facility] in the next 1-2 days with repeat BMP. (Jamin Samuel MD) Additional Copies To [facility]; Jamin Herring M.D. Resident Tracking Resident Involvement: Resident Care Provided Care Provided: Adult Hospital Medicine (Jamin Samuel MD)
[2016-06-24 01:19] LABS: O&P GIARDIA AG NOT DETECTED (NOT DETECTED)
[2016-11-30] MEDS ORDERED: METH2.5T PO (08:25)
[2016-11-30] MEDS ORDERED: SYMIN160 INH (08:25)
[2016-11-30] MEDS ORDERED: ACET-1311 PO (08:25)
[2016-11-30] MEDS ORDERED: ORNI125 SQ (08:25)
[2016-11-30] MEDS ORDERED: DILT-115 PO (08:25)
== END 2016-06-23 15:36 | DRG 643 ==
LOC: ENRESERVTM → ENRESERVDT → EDBD 18:15 → C.EDB 18:18 → C.2T 22:08 → C.MED 06-20 14:26
PROVIDERS: ADMIT Hospitalist; ATTEND Internal Medicine
DX: E22.2 Syndrome of inappropriate secretion of antidiuretic hormone (principal); J96.01 Acute respiratory failure with hypoxia; J18.9 Pneumonia, unspecified organism; E87.4 Mixed disorder of acid-base balance; J44.0 Chronic obstructive pulmonary disease with (acute) lower respiratory infection; J45.909 Unspecified asthma, uncomplicated; M06.9 Rheumatoid arthritis, unspecified; Z87.891 Personal history of nicotine dependence; Z91.040 Latex allergy status; Z91.048 Other nonmedicinal substance allergy status; Z88.2 Allergy status to sulfonamides; Z88.8 Allergy status to other drugs, medicaments and biological substances; Z88.5 Allergy status to narcotic agent; E73.9 Lactose intolerance, unspecified; Z79.82 Long term (current) use of aspirin; Z79.899 Other long term (current) drug therapy; R00.1 Bradycardia, unspecified; M17.9 Osteoarthritis of knee, unspecified; I10 Essential (primary) hypertension; M81.0 Age-related osteoporosis without current pathological fracture; E87.6 Hypokalemia; R91.8 Other nonspecific abnormal finding of lung field; Z87.440 Personal history of urinary (tract) infections; Z79.01 Long term (current) use of anticoagulants; E83.42 Hypomagnesemia; D72.829 Elevated white blood cell count, unspecified; E88.09 Other disorders of plasma-protein metabolism, not elsewhere classified; G51.0 Bell's palsy; K43.9 Ventral hernia without obstruction or gangrene; K59.00 Constipation, unspecified; I44.7 Left bundle-branch block, unspecified; Y95 Nosocomial condition; E83.39 Other disorders of phosphorus metabolism; R29.810 Facial weakness; J44.9 Chronic obstructive pulmonary disease, unspecified; F41.9 Anxiety disorder, unspecified; M40.209 Unspecified kyphosis, site unspecified; E86.0 Dehydration

== ENCOUNTER → 2016-07-20 | Outpatient (CLI) | payer OTHER, BC ==
[~2016-07-20] MED LIST changes: -ABAT1INJ2 INJ; +ACET-1311 PO; -ALBUAER2 INH; +CHOL1000 PO; -CHOL100010 PO; -DICL1GEL34 TOP; +DILT-115 PO; +IPRASOL4 INH; +LCTX PO; +LMTHP PO; -NAPR1TAB9 PO; +NYSS5 PO; -OMEG10007 PO; +ORNI125 SQ; -POLY99.02 OP; -POLYSOL4 OP; +POTTAB2 PO; +PRED10TA PO; +PRT40 PO; -SPIR50TA PO; +VLTG EXT; +VNTHFA/IN INH
[2016-07-20 16:46] LABS: BASO % 0.3 %; BASO ABS # 0.03 K/uL (0-0.2); COMPLETE YES; EOS % 1.6 %; IG% 0.4 %; LYMPH ABS # 2.22 K/uL (1.2-3.4); MEAN CELL VOLUME 95.7 fL (80-100); MEAN CORPUSCULAR HEMOGLOBIN 32.5 pg (25-34); MEAN CORPUSCULAR HGB CONC 33.9 g/dl (32-36); MEAN PLATELET VOLUME 9.7 fL (7.4-10.4); MONO % 8.6 %; NEUT % 69.1 %; PLATELET COUNT 285 K/uL (130-400); RED BLOOD COUNT 3.97 M/uL (4.2-5.4); WHITE BLOOD COUNT 11.11 K/uL (4.8-10.8)
[2016-07-20 17:15] LABS: BLOOD UREA NITROGEN 11 mg/dl (7-18); CALCIUM 9.4 mg/dl (8.5-10.1); CARBON DIOXIDE 26 mmol/L (21-32); CHLORIDE 100 mmol/L (98-107); CREATININE 0.61 mg/dl (0.60-1.20); GLUCOSE 108 mg/dl (70-99); MAGNESIUM 1.9 mg/dl (1.8-2.4); POTASSIUM 3.6 mmol/L (3.5-5.1); SODIUM 135 mmol/L (136-145)
== END | disposition home or self-care (01) ==
LOC: C.LAB1850 15:25
PROVIDERS: ATTEND Internal Medicine
DX: I10 Essential (primary) hypertension (principal); E83.42 Hypomagnesemia

== ENCOUNTER → 2016-09-07 | Outpatient (CLI) | payer OTHER, BC ==
[2016-09-07 15:56] LABS: BASO % 0.3 %; BASO ABS # 0.03 K/uL (0-0.2); EOS % 0.7 %; HEMATOCRIT 35.4 % (37-47); IG% 0.2 %; LYMPH % 15.5 %; LYMPH ABS # 1.61 K/uL (1.2-3.4); MEAN CELL VOLUME 95.2 fL (80-100); MEAN CORPUSCULAR HEMOGLOBIN 32.8 pg (25-34); MEAN PLATELET VOLUME 10.2 fL (7.4-10.4); MONO % 10.9 %; NEUT % 72.4 %; PLATELET COUNT 250 K/uL (130-400); RED BLOOD COUNT 3.72 M/uL (4.2-5.4)
[2016-09-07 16:01] LABS: COMPLETE YES; MEAN CORPUSCULAR HGB CONC 34.5 g/dl (32-36)
[2016-09-07 16:24] LABS: BLOOD UREA NITROGEN 16 mg/dl (7-18); BUN/CREATININE RATIO 29.6 (10-20); CALCIUM 9.3 mg/dl (8.5-10.1); CARBON DIOXIDE 30 mmol/L (21-32); CHLORIDE 92 mmol/L (98-107); CREATININE 0.55 mg/dl (0.60-1.20); GLUCOSE 101 mg/dl (70-99); POTASSIUM 4.1 mmol/L (3.5-5.1); SODIUM 127 mmol/L (136-145)
== END | disposition home or self-care (01) ==
LOC: C.LAB1850 15:09
PROVIDERS: ATTEND Internal Medicine
DX: J44.9 Chronic obstructive pulmonary disease, unspecified (principal); R07.9 Chest pain, unspecified; I10 Essential (primary) hypertension; R00.0 Tachycardia, unspecified; E83.42 Hypomagnesemia; G47.00 Insomnia, unspecified

== ENCOUNTER → 2016-10-20 | Outpatient (CLI) | payer OTHER, BC | END | disposition home or self-care (01) | LOC: C.LAB1850 09:56 | PROVIDERS: ATTEND Internal Medicine | DX: Z87.09 Personal history of other diseases of the respiratory system (principal) ==

== ENCOUNTER → 2016-11-27 | Outpatient (CLI) | payer OTHER, BC ==
[2016-11-27 12:37] LABS: ALT/SGPT 57 U/L (12-78); AST/SGOT 25 U/L (15-37)
== END | disposition home or self-care (01) ==
LOC: C.LAB1850 10:02
PROVIDERS: ATTEND Internal Medicine Rheumatology
DX: R94.5 Abnormal results of liver function studies (principal)

== ENCOUNTER → 2016-12-14 | Outpatient (CLI) | payer OTHER, BC ==
[~2016-12-14] MED LIST changes: -BIOTCAP2 PO; -DILT120T8 PO; -IPRASOL4 INH; -LCTX PO; -LMTHP PO; -NYSS5 PO; -POTTAB2 PO; -PRED10TA PO; -PRT40 PO; -VLTG EXT
== END | disposition home or self-care (01) ==
LOC: C.RDSM 13:37
PROVIDERS: ATTEND Physical Medicine & Rehabilitation Sports Medicine
DX: M17.11 Unilateral primary osteoarthritis, right knee (principal)

== ENCOUNTER → 2017-01-15 | Outpatient (CLI) | payer OTHER, BC ==
--- NOTE | 2017-01-15 11:03 | DIAGNOSTIC IMAGING REPORT ---
CHEST 2 VIEWS ROUTINE HISTORY: 76 years-old Female I10 [id number] acute hypertension. Initial exam. COMPARISON: Chest radiograph 06/20/2016 TECHNIQUE: Portable upright AP view of the chest FINDINGS: Cardiac silhouette is mildly enlarged. There is atherosclerosis of the aorta. Lungs are hyperinflated with mild biapical pleural parenchymal scarring. There is no pneumothorax. Mild pulmonary vascular congestion is noted. There has been interval development of small bilateral pleural effusions with hazy subsegmental bibasilar opacities. Severe osteoarthritis involves the shoulders bilaterally, right greater than left. Chronic fracture deformity of the distal right clavicle is noted. Bones are moderately demineralized. IMPRESSION: 1. Development of small bilateral pleural effusions with hazy subsegmental bibasilar opacities suggesting atelectasis or pneumonia. 2. Cardiomegaly without overt pulmonary edema. 3. Hyperinflation. The above report was generated using voice recognition software. It may contain grammatical, syntax or spelling errors. Electronically signed by: Ismael Torres M.D. 01/15/2017 11:02 AM Dictated Date/Time: 01/15/2017 11:00 AM
== END | disposition home or self-care (01) ==
LOC: C.RAD1850 10:47
PROVIDERS: ATTEND Internal Medicine
DX: I10 Essential (primary) hypertension (principal); I51.7 Cardiomegaly; J90 Pleural effusion, not elsewhere classified

== ENCOUNTER → 2017-03-22 | Outpatient (CLI) | payer OTHER, BC ==
[2017-03-22 16:30] LABS: BASO % 0.3 %; BASO ABS # 0.04 K/uL (0-0.2); COMPLETE YES; EOS % 1.5 %; HEMATOCRIT 39.7 % (37-47); IG% 0.2 %; LYMPH % 12.9 %; MEAN CELL VOLUME 93.9 fL (80-100); MEAN CORPUSCULAR HEMOGLOBIN 31.7 pg (25-34); MEAN CORPUSCULAR HGB CONC 33.8 g/dl (32-36); MEAN PLATELET VOLUME 10.4 fL (7.4-10.4); MONO % 8.3 %; NEUT % 76.8 %; PLATELET COUNT 278 K/uL (130-400); RED BLOOD COUNT 4.23 M/uL (4.2-5.4); WHITE BLOOD COUNT 12.38 K/uL (4.8-10.8)
[2017-03-22 16:44] LABS: ALT/SGPT 35 U/L (12-78); AST/SGOT 24 U/L (15-37); CREATININE 0.77 mg/dl (0.60-1.20)
[2017-03-22 16:47] LABS: ALKALINE PHOSPHATASE 98 U/L (45-117)
[2017-03-26 10:56] LABS: ANTI-CENTROMERE AB <1.0 NEG AI (<1.0 NEG); ANTI-SS-A <1.0 NEG AI (<1.0 NEG); ANTI-SS-B <1.0 NEG AI (<1.0 NEG); DNA ds CRITHIDIA NEGATIVE (NEGATIVE); Sm Antibody <1.0 NEG AI (<1.0 NEG)
== END | disposition home or self-care (01) ==
LOC: C.LAB1850 15:04
PROVIDERS: ATTEND Internal Medicine Rheumatology
DX: R91.8 Other nonspecific abnormal finding of lung field (principal); M05.9 Rheumatoid arthritis with rheumatoid factor, unspecified; J20.9 Acute bronchitis, unspecified

== ENCOUNTER → 2017-07-22 | Outpatient (CLI) | payer OTHER, BC ==
[2017-07-22 12:09] LABS: BASO % 0.3 %; BASO ABS # 0.05 K/uL (0-0.2); EOS % 1.4 %; EOS ABS # 0.22 K/uL (0-0.5); HEMATOCRIT 37.9 % (37-47); HEMOGLOBIN 12.4 g/dL (12.0-16.0); IG# 0.05 K/uL (0.00-0.02); LYMPH ABS # 0.77 K/uL (1.2-3.4); MEAN CELL VOLUME 89.4 fL (80-100); MEAN CORPUSCULAR HEMOGLOBIN 29.2 pg (25-34); MEAN CORPUSCULAR HGB CONC 32.7 g/dl (32-36); MEAN PLATELET VOLUME 9.6 fL (7.4-10.4); MONO % 4.7 %; MONO ABS # 0.73 K/uL (0.11-0.59); NEUT % 88.3 %; NEUT ABS # 13.63 K/uL (1.4-6.5); PLATELET COUNT 298 K/uL (130-400); RED CELL DISTRIBUTION WIDTH CV 15.3 % (11.5-14.5); RED CELL DISTRIBUTION WIDTH SD 49.8 fL (36.4-46.3); WHITE BLOOD COUNT 15.45 K/uL (4.8-10.8)
[2017-07-22 12:25] LABS: BLOOD UREA NITROGEN 16 mg/dl (7-18); CALCIUM 9.3 mg/dl (8.5-10.1); CARBON DIOXIDE 27 mmol/L (21-32); CREATININE 0.55 mg/dl (0.60-1.20); GLUCOSE 134 mg/dl (70-99); POTASSIUM 3.9 mmol/L (3.5-5.1); SODIUM 127 mmol/L (136-145)
== END | disposition home or self-care (01) ==
LOC: C.LABBFT 10:49
PROVIDERS: ATTEND Internal Medicine
DX: R53.83 Other fatigue (principal)

== ENCOUNTER 2018-05-21 21:47 | Inpatient (IN) ==
[2018-05-21] MEDS ORDERED: METOCLOPRAMIDE HCL INJ 5 MG/ML 2 ML VIAL IV STA (22:11)
[2018-05-21] MEDS ORDERED: HYDROmorphone INJ 0.5 MG/0.5 ML SYR IV PRN (22:11)
[2018-05-21] MEDS ORDERED: SODIUM CHLORIDE 0.9% 1000ML 500 ML IV ONE (22:13)
[2018-05-21 22:54] LABS: Basophils # (auto) 0.03 K/uL (0-0.2); Basophils % (auto) 0.2 %; Eosinophils # (auto) 0.05 K/uL (0-0.5); Eosinophils % (auto) 0.3 %; Hematocrit (blood only) 37.5 % (37-47); Hemoglobin 12.5 g/dL (12.0-16.0); Immature Granulocytes # (auto) 0.06 K/uL (0.00-0.02); Immature Granulocytes % (auto) 0.4 %; Lymphocytes # (auto) 1.06 K/uL (1.2-3.4); Mean Corpuscular Hgb Conc 33.3 g/dL (32-36); Mean Corpuscular Volume 92.1 fL (80-100); Mean Platelet Volume 9.3 fL (7.4-10.4); Monocytes # (auto) 1.16 K/uL (0.11-0.59); Monocytes % (auto) 7.7 %; Neutrophils # (auto) 12.74 K/uL (1.4-6.5); Neutrophils % (auto) 84.4 %; Platelet Count 327 K/uL (130-400); RDW Coefficient of Variation 14.4 % (11.5-14.5); RDW Standard Deviation 48.5 fL (36.4-46.3); Red Blood Count 4.07 M/uL (4.2-5.4)
[2018-05-21 23:04] LABS: iSTAT Hemoglobin 12.9 g/dl (12.0-16.0); iSTAT Ionized Calcium 1.26 mmol/l (1.12-1.32)
[2018-05-21 23:11] LABS: Alanine Aminotransferase 18 U/L (12-78); Albumin Level 3.2 gm/dl (3.4-5.0); Aspartate Aminotransferase 16 U/L (15-37); BUN Creatinine Ratio 30.1 (10-20); Blood Urea Nitrogen 16 mg/dl (7-18); Calcium 9.2 mg/dl (8.5-10.1); Carbon Dioxide 24 mmol/L (21-32); Chloride 96 mmol/L (98-107); Creatinine Clr Calc Pharmacy 70.5 ml/min; Est GFR (African American) 106.1; Est GFR (Non-African American) 91.5; Glucose 144 mg/dl (70-99); Potassium 3.6 mmol/L (3.5-5.1); Sodium 129 mmol/L (136-145)
[2018-05-21] MEDS ORDERED: OPTIRAY 320 125ml IV PRN (23:11)
--- NOTE | 2018-05-21 23:11 | XRay Report ---
XR chest 1V portable CLINICAL HISTORY: Atypical chest pain COMPARISON STUDY: 06/20/2016 FINDINGS: The heart is borderline enlarged. There is no overt failure. There is no lobar consolidatio n. Basilar opacities, are likely atelectatic. Increased density of the right lung apex remain stable. [ IMPRESSION: 1. Borderline cardiomegaly with chronic basilar atelectasis/scarring 2. No evidence of failure. Electronically signed by: Jerry Hudson M.D. 05/21/2018 11:01 PM
[2018-05-21 23:16] LABS: Albumin Globulin Ratio 0.8 (0.9-2); Alkaline Phosphatase 70 U/L (45-117); Bilirubin,Total 0.5 mg/dl (0.2-1); Creatine Kinase 66 U/L (26-192); Creatine Kinase MB 1.4 ng/ml (0.5-3.6); Globulin 3.9 gm/dl (2.5-4.0); Total Protein 7.1 gm/dl (6.4-8.2); Troponin I < 0.015 ng/ml (0-0.045)
[2018-05-22] MEDS ORDERED: CANNULA ONE
[2018-05-22] MEDS ORDERED: ONDANSETRON INJ 2 MG/ML 2 ML VIAL IV PRN (02:43)
[2018-05-22] MEDS ORDERED: PIPERACILL/TAZOBAC CONSULT ACTIVE PRN (02:43)
[2018-05-22] MEDS ORDERED: MoRPHine SULFATE 2 MG/ML CARP IV PRN (02:43)
[2018-05-22] MEDS ORDERED: PIPERACILLIN/TAZOBACTAM 3.375 GM in DEXTROSE 5% 100 ML IV STA (02:47)
[2018-05-22] MEDS: NSS + 20MEQ KCL 20 MEQ/1,000 ML BAG IV SCH ×2 (02:56→16:36)
[2018-05-22] MEDS: ACETAMINOPHEN 1000 MG/100 ML IV IV PRN ×2 (05:21→12:28)
--- NOTE | 2018-05-22 05:48 | History & Physical Report ---
Date of Service May 22, 2018 Assessment & Plan (1) Bowel obstruction: Bowel obstruction/patient self reported history of poor surgical candidate /history of presumptive small bowel bleeding requiring transfusion-- Admit to medical surgical floor. NPO Pantoprazole 40 mg IV daily. Zofran 4 mg IV every 6 hours as needed. Zosyn 3.375 mg IV every 8 hours. General surgery consulted. Follow serial x-rays. Acetaminophen 1000 mg IV every 8 hours as needed mild pain or temperature. Morphine sulfate 2 mg IV every 3 hours as needed severe pain. Present on Admission?: Yes (2) Rheumatoid arthritis: For now, while n.p.o., hold hydroxychloroquine and prednisone. If develop symptoms of adrenal insufficiency, can add hydrocortisone IV at that time. Present on Admission?: Yes (3) HTN (hypertension): Hold lisinopril, diltiazem and aspirin while n.p.o. status. Blood pressure is in the low range at this time. Hold on any as needed's at this time. Present on Admission?: Yes (4) Asthma: Continue Symbicort. Have duonebs available to use as needed. Present on Admission?: Yes History of Present Illness Chief Complaint: The patient presents to the emergency department with worsening abdominal pain, similar to previous bowel obstruction. Primary Care Provider: Michael Herring MD The patient is a 77-year-old female with a past medical history including previous bowel obstructions with colostomy and then reversal, recent admission in January 2018, during which EGD showed a large volume of abdominal bleeding of unclear etiology, probably small intestine. She developed worsening abdominal discomfort over the past 24 hours, presented to the ED for assessment , and CT scan of abdomen pelvis was consistent with recurrent bowel obstruction. Patient was offered by ED and surgery on-call to be transferred to tertiary care center, but she reports that she has been told in the past that she has not a good surgical candidate, and thus preferred to stay at [facility]. Allergies Allergy/AdvReac Type Severity Reaction Status Date / Time codeine Allergy Mild DIZZINESS Verified 05/11/18 13:32 latex Allergy Mild RASH Verified 05/11/18 13:32 moxifloxacin Allergy Mild PAIN IN Verified 05/11/18 13:32 HEEL nickel Allergy Mild RASH ON Verified 05/11/18 13:32 EARS WITH EARRINGS WITH NICKEL Sulfa (Sulfonamide Allergy Mild Rash Verified 05/11/18 13:32 Antibiotics) banana Allergy Unknown RASH Verified 05/11/18 13:32 Cipro Allergy Unknown PASSED Verified 11/16/17 08:18 OUT, SEVERE RXN PER PATIENT ciprofloxacin Allergy Unknown PASSED Verified 05/11/18 13:32 OUT, SEVERE RXN PER PATIENT nut - unspecified Allergy Unknown HIVES Verified 05/11/18 13:32 fluconazole AdvReac Intermediate TACHYCARDIA, Verified 05/11/18 13:32 HAIR LOSS adhesive AdvReac Mild CONTACT Verified 05/11/18 13:32 DERMATITIS Home Medications Home Medications Medication Instructions Recorded Confirmed Type acetaminophen [Tylenol Arthritis 650 mg PO Q8H PRN 03/07/18 05/21/18 History Pain] aspirin [Aspirin Low Dose] 1 tab PO QPM 03/07/18 05/21/18 History budesonide-formoterol [Symbicort] 2 puff INHALATION BID 03/07/18 05/21/18 History calcium carbonate [Calcium 500] 500 mg PO DAILY 03/07/18 05/21/18 History cholecalciferol (vitamin D3) 5,000 unit PO DAILY 03/07/18 05/21/18 History [Vitamin D3] hydroxychloroquine 200 mg PO QAM 03/07/18 05/21/18 History magnesium oxide 400 mg PO DAILY 03/07/18 05/21/18 History pantoprazole [Protonix] 40 mg PO DAILY PRN 03/07/18 05/21/18 History prednisone 3 mg PO QAM 03/07/18 05/21/18 History tramadol 50 mg PO Q6H PRN 03/07/18 05/21/18 History diltiazem HCl 120 mg PO DAILY 05/11/18 05/21/18 History lisinopril 10 mg PO DAILY 05/21/18 05/21/18 History Past Med/Surg History Medical History Rheumatoid arthritis (Chronic) CHF (congestive heart failure) History of hemangioma YEARS Hx of diverticulitis of colon Hx of lower gastrointestinal bleeding Hx of congestive heart failure HTN (hypertension) Asthma (Chronic) Surgical History History of colostomy (Acute) History of colostomy reversal (Acute) Hx of right heart catheterization 2017 [facility] Family History Other History of section Social History Current Living Situation: Alone Other Information That Helps Us Care for You: No Feels Safe at Home: Yes Safety Concerns: Feels Safe At This Time Smoking Status: Former smoker Do You Dip or Chew Tobacco: No Second Hand Exposure: No Hx Alcohol Use: No Hx Substance Use: No Beliefs That Will Affect Care: None Preferred Language: Jordanian Communication Ability: Effective Design Specialist Required: No Review of Systems The patient denies chest pain, palpitations, shortness of breath, dyspnea on exertion, cough, lower extremity swelling, sore throat, fevers, chills, sweats, diarrhea, blood in urine or stool, dysuria , urinary frequency or urgency, lightheadedness, dizziness, headache, memory loss, loss of consciousness, imbalance, focal or generalized weakness, numbness or tingling in arms or legs, generalized arthralgias or myalgias, neck pain, or night sweats. The review of systems is otherwise negative other than for that already noted above, and at least 10 systems have been reviewed. Physical Exam 2 Vital Signs (Past 24 Hours): Last Vital Signs Temp 36.8 C 05/22/18 02:20 Pulse 66 05/22/18 02:20 Resp 18 05/22/18 02:20 BP 148/70 H 05/22/18 02:20 Pulse Ox 94 05/22/18 02:20 Physical Exam: The patient is awake, alert and oriented 3, normocephalic and atraumatic, lying in bed and in no acute distress. HEENT--artificial eye, mucous membranes and oropharynx dry. Chronic facial asymmetry unchanged Neck--supple. No JVD. No bruits. Thyroid normal, trachea midline, no adenopathy. Heart--normal S1 and S2. No murmurs, rubs or gallops. Lungs--clear bilaterally, no respiratory distress, no accessory muscle use. Abdomen--no bowel sounds. Mildly firm. Nontender status post medications for pain. Extremities--no cyanosis or clubbing. No edema. There are good distal pulses b/ l. Dermatologic--normal skin turgor, normal color, no abnormal lymph nodes, no rash. Neurologic--cranial nerves II through XII grossly intact. Rheumatology--limited exam Psychiatric--normal affect. Results & Data Laboratory Results Laboratory Results WBC 15.10 K/uL (4.8-10.8) H 05/21/18 22:46 RBC 4.07 M/uL (4.2-5.4) L 05/21/18 22:46 Hgb 12.5 g/dL (12.0-16.0) 05/21/18 22:46 POC Hgb 12.9 g/dl (12.0-16.0) 05/21/18 22:52 Hct 37.5 % (37-47) 05/21/18 22:46 POC Hct 38 % (37-47) 05/21/18 22:52 MCV 92.1 fL (80-100) 05/21/18 22:46 MCH 30.7 pg (25-34) 05/21/18 22:46 MCHC 33.3 g/dL (32-36) 05/21/18 22:46 RDW Std Deviation 48.5 fL (36.4-46.3) H 05/21/18 22:46 RDW Coeff of Chauncey 14.4 % (11.5-14.5) 05/21/18 22:46 Plt Count 327 K/uL (130-400) 05/21/18 22:46 MPV 9.3 fL (7.4-10.4) 05/21/18 22:46 Immature Gran % (Auto) 0.4 % 05/21/18 22:46 Neut % (Auto) 84.4 % 05/21/18 22:46 Lymph % (Auto) 7.0 % 05/21/18 22:46 Nicollet % (Auto) 7.7 % 05/21/18 22:46 Eos % (Auto) 0.3 % 05/21/18 22:46 Baso % (Auto) 0.2 % 05/21/18 22:46 Immature Gran # (Auto) 0.06 K/uL (0.00-0.02) H 05/21/18 22:46 Neut # (Auto) 12.74 K/uL (1.4-6.5) H 05/21/18 22:46 Lymph # (Auto) 1.06 K/uL (1.2-3.4) L 05/21/18 22:46 Nicollet # (Auto) 1.16 K/uL (0.11-0.59) H 05/21/18 22:46 Eos # (Auto) 0.05 K/uL (0-0.5) 05/21/18 22:46 Baso # (Auto) 0.03 K/uL (0-0.2) 05/21/18 22:46 POC Sodium 131 mEq/L (135-144) L 05/21/18 22:52 Sodium 129 mmol/L (136-145) L 05/21/18 22:46 POC Potassium 3.7 mEq/L (3.3-5.0) 05/21/18 22:52 Potassium 3.6 mmol/L (3.5-5.1) 05/21/18 22:46 POC Chloride 95 mEq/L (101-112) L 05/21/18 22:52 Chloride 96 mmol/L (98-107) L 05/21/18 22:46 Carbon Dioxide 24 mmol/L (21-32) 05/21/18 22:46 POC Total CO2 24 mEq/l (24-31) 05/21/18 22:52 Anion Gap 9.0 (3-11) 05/21/18 22:46 POC Anion Gap 17.0 mmol/L (16-25) 05/21/18 22:52 POC BUN 15 mg/dl (7-18) 05/21/18 22:52 BUN 16 mg/dl (7-18) 05/21/18 22:46 Creatinine 0.52 mg/dl (0.6-1.2) L 05/21/18 22:46 POC Creatinine 0.4 mg/dl (0.6-1.3) L 05/21/18 22:52 Est Cr Clr Drug Dosing 70.5 ml/min 05/21/18 22:46 Est GFR ( Amer) 106.1 05/21/18 22:46 Est GFR (Non-Af Amer) 91.5 05/21/18 22:46 BUN/Creatinine Ratio 30.1 (10-20) H 05/21/18 22:46 Glucose 144 mg/dl (70-99) H 05/21/18 22:46 POC Glucose (other) 155 mg/dl (70-99) H 05/21/18 22:52 Calcium 9.2 mg/dl (8.5-10.1) 05/21/18 22:46 POC Ioniz Calcium Mckenna 1.26 mmol/l (1.12-1.32) 05/21/18 22:52 Total Bilirubin 0.5 mg/dl (0.2-1) 05/21/18 22:46 AST 16 U/L (15-37) 05/21/18 22:46 ALT 18 U/L (12-78) 05/21/18 22:46 Alkaline Phosphatase 70 U/L (45-117) 05/21/18 22:46 Total Creatine Kinase 66 U/L (26-192) 05/21/18 22:46 CK-MB (CK-2) 1.4 ng/ml (0.5-3.6) 05/21/18 22:46 CK/CKMB % Calc 2.1 (0-3.0) 05/21/18 22:46 Troponin I < 0.015 ng/ml (0-0.045) 05/21/18 22:46 Total Protein 7.1 gm/dl (6.4-8.2) 05/21/18 22:46 Albumin 3.2 gm/dl (3.4-5.0) L 05/21/18 22:46 Globulin 3.9 gm/dl (2.5-4.0) 05/21/18 22:46 Albumin/Globulin Ratio 0.8 (0.9-2) L 05/21/18 22:46 Lipase 70 U/L (73-393) L 05/21/18 22:46 Diagnostic Findings [place], [place] [phone] XRay Report Patient: PATTY LIANG Date: 05/21/18 MR#: [id number]: [address] Acct ID:[id number]: Date: 1940[facility] Zip: [place] [address] Age: 77Location: ED Sex: F Room/Bed: Att Phy: Diagnosis: AB PAIN Shireen Phy: Jamin Herring MDService Date: 05/21/18 Fam Phy: Interpreting Phy: Jerry Hudson MD Admit Phy: Ordering Phy: Delano Knox MD cc: ~ XR chest 1V portable CLINICAL HISTORY: Atypical chest pain COMPARISON STUDY: 06/20/2016 FINDINGS: The heart is borderline enlarged. There is no overt failure. There is no lobar consolidation. Basilar opacities, are likely atelectatic. Increased density of the right lung apex remain stable.[ IMPRESSION: 1. Borderline cardiomegaly with chronic basilar atelectasis/scarring 2. No evidence of failure. Electronically signed by: Jerry Hudson M.D. 05/21/2018 11:01 PM Dictated: 05/21/18 2258 Transcribed: 05/21/18 2300 Code Status & VTE Plan Code Status Full code VTE Prophylaxis Plan VTE Prophylaxis will be ordered: Yes _ (1) Bowel obstruction Intestinal obstruction extent: unspecified extent Intestinal obstruction type : unspecified Qualified Code(s): K56.609 - Unspecified intestinal obstruction, unspecified as to partial versus complete obstruction
[2018-05-22] MEDS ORDERED: ALBUT/IPRATROP 3MG/0.5MG NEB 3 ML VIAL NEB PRN (05:54)
[2018-05-22 06:04] LABS: Appearance Urine Clear (Clear); Bacteria Urine Automated Negative (Negative); Bilirubin Urine Negative (Negative); Color Urine Yellow; Epithelial Cell Urine Auto 20-30 /lpf (0-5); Glucose Urine UA Negative (Negative); Ketones Urine Negative (Negative); Leukocyte Esterase Urine Trace (Negative); Nitrite Urine Negative (Negative); Protein Urine 2+ (Negative); Specific Gravity Urine > 1.045 (1.000-1.030); Urobilinogen Urine Negative (Negative)
[2018-05-22 07:38] LABS: Basophils # (auto) 0.01 K/uL (0-0.2); Basophils % (auto) 0.1 %; Eosinophils # (auto) 0.05 K/uL (0-0.5); Eosinophils % (auto) 0.5 %; Hematocrit (blood only) 34.3 % (37-47); Hemoglobin 11.1 g/dL (12.0-16.0); Immature Granulocytes # (auto) 0.02 K/uL (0.00-0.02); Immature Granulocytes % (auto) 0.2 %; Lymphocytes # (auto) 1.17 K/uL (1.2-3.4); Lymphocytes % (auto) 12.4 %; Mean Corpuscular Hgb Conc 32.4 g/dL (32-36); Mean Corpuscular Volume 92.7 fL (80-100); Mean Platelet Volume 9.4 fL (7.4-10.4); Monocytes # (auto) 1.03 K/uL (0.11-0.59); Monocytes % (auto) 10.9 %; Neutrophils # (auto) 7.17 K/uL (1.4-6.5); Neutrophils % (auto) 75.9 %; Platelet Count 296 K/uL (130-400); RDW Coefficient of Variation 14.4 % (11.5-14.5); RDW Standard Deviation 48.9 fL (36.4-46.3); White Blood Count 9.45 K/uL (4.8-10.8)
[2018-05-22 07:48] LABS: INR 1.1 (0.9-1.1); Partial Thromboplastin Ratio 1.1; Partial Thromboplastin Time 28.6 Seconds (21.0-31.0); Prothrombin Time 10.6 Seconds (9.0-12.0)
[2018-05-22] MEDS ORDERED: PIPERACILLIN/TAZOBACTAM 3.375 GM in DEXTROSE 5% 100 ML IV SCH (08:00)
[2018-05-22 08:16] LABS: Albumin Level 2.8 gm/dl (3.4-5.0); BUN Creatinine Ratio 24.1 (10-20); Calcium 8.9 mg/dl (8.5-10.1); Creatinine Clr Calc Pharmacy 65.5 ml/min; Est GFR (African American) 103.5; Est GFR (Non-African American) 89.3; Potassium 4.1 mmol/L (3.5-5.1)
[2018-05-22 08:19] LABS: Albumin Globulin Ratio 0.8 (0.9-2); Bilirubin,Total 0.4 mg/dl (0.2-1); Globulin 3.5 gm/dl (2.5-4.0); Total Protein 6.3 gm/dl (6.4-8.2)
[2018-05-22] MEDS: BUDESONIDE/FORMOTEROL FUMARATE 160/4.5 60 PUFFS/INHALER INH SCH ×2 (08:20→21:13)
--- NOTE | 2018-05-22 08:44 | CT Scan Report ---
CT OF THE ABDOMEN AND PELVIS WITH CONTRAST CLINICAL HISTORY: Abdominal pain. Possible obstruction. COMPARISON STUDY: CT of the abdomen and pelvis January 08, 2018. TECHNIQUE: Following IV administration of 118 mL of Optiray-320, axial images of the abdomen and pelv is were obtained from the lung bases to the proximal femurs. Images were reviewed in the axial, sagit isaias, and coronal planes. IV contrast was administered without complication. Automated exposure contr ol was utilized for the study. A dose lowering technique was utilized adhering to the principles of ALARA. CT DOSE: 275.28 mGy.cm FINDINGS: The heart is moderately enlarged. Bibasilar opacities reflect atelectasis. The liver, splee n, adrenal glands, kidneys and pancreas are unremarkable. There is no hydronephrosis. There is no christal iary or pancreatic ductal dilatation. A left renal cyst is noted. No pneumatosis, free air or portal venous gas is present. There are multiple bilateral bowel containing lower ventral hernias. These con tain portions of small and large bowel as well as a portion of the stomach extending into a left vent ral hernia. The majority of the small bowel is moderately dilated and fluid-filled. Decompressed smal l bowel loops are also present. A small amount of ascites is noted. The findings represent a small luis wel obstruction. The transition point is difficult to determine with certainty however appears to inv olve a right lower ventral hernia shown on axial image 272 and 263 of 371. No pneumatosis, free air o r portal venous gas is present. There are no suspicious osseous lesions. There is no lymphadenopathy. IMPRESSION: Multiple bilateral ventral hernias which contain small and large bowel as well as a port ion of the stomach. Majority of small bowel mildly dilated fluid filled with decompressed small bowel loops consistent with a small bowel obstruction. Small amount of ascites. Although not definitive, t he transition point with resultant obstruction is likely related to a right lower quadrant ventral he rnia, as described above. Electronically signed by: Josh Flannery M.D. 05/22/2018 8:42 AM
[2018-05-22] MEDS ORDERED: HEPARIN SOD 5,000 UNIT/0.5 ML VIAL SQ SCH (09:00)
--- NOTE | 2018-05-22 10:26 | Surgery Consultation ---
Date of Consultation May 22, 2018 Assessment & Plan (1) CHF (congestive heart failure): Pt feelign subjectively short of breath. Will check pO2 and decrease IVF. (2) Bowel obstruction: Likely secondary to incarcerated ventral hernia which has now reduced. Bowel obstruction should be resolving. Would start full liquids and then advance as tolerated. Present on Admission?: Yes (3) Abdominal hernia: Multiple ventral hernias with nonreducible large left sided hernia and smaller, incarcerated right sided hernia that was source of SBO. The right sided hernia is now able to be reduced. Discussed the use of abdominal binder to minimize chance of recurrent incarceration. Discussed importance of avoiding constipation and miralax was reviewed and ordered today. She is not a surgical candidate for hernia repair at this facility due to medical comorbidities, loss of abdominal wall musculature given size of hernias. Given option of referral to tertiary care center / hernia center to see if they would consider elective repair. She is not interested in pursuing this at this time. Present on Admission?: Yes History of Present Illness Reason for Consultation: small bowel obstruction due to ventral hernia Requesting Physician: Dr. Martinez Attending Physician: Trevon Valerio, History of Present Illness 77 yr old woman with complicated medical history including rheumatoid arthritis , congestive heart failure, h/o CVA, hypertension, asthma, prior GI bleed presents with small bowel obstruction from incarcerated ventral hernia. She is s /p colostomy, colostomy reversal - last by Dr. Hall in 2015. Has developed large ventral hernias - the left at the colostomy site has been present for some time. The right sided hernia developed in the last 6 months. Tries to wear a binder/ pressure against them at home. [facility] and told she was not a surgical candidate for repair. Yesterday, in the setting of constipation with last bowel movement on Wednesday, developed acute abdominal pain with nausea and vomiting. This was associated with the hernias being "stuck out" more and very tender/ firm. CT in the ER showed incarcerated hernia with likely transition in right lower quadrant hernia causing bowel obstruction. Given option of transfer to tertiary care facility but preferred to stay here. Overnight, pain has improved. No further nausea or vomiting. Hernias feel softer. Allergies Allergy/AdvReac Type Severity Reaction Status Date / Time codeine Allergy Mild DIZZINESS Verified 05/11/18 13:32 latex Allergy Mild RASH Verified 05/11/18 13:32 moxifloxacin Allergy Mild PAIN IN Verified 05/11/18 13:32 HEEL nickel Allergy Mild RASH ON Verified 05/11/18 13:32 EARS WITH EARRINGS WITH NICKEL Sulfa (Sulfonamide Allergy Mild Rash Verified 05/11/18 13:32 Antibiotics) banana Allergy Unknown RASH Verified 05/11/18 13:32 Cipro Allergy Unknown PASSED Verified 11/16/17 08:18 OUT, SEVERE RXN PER PATIENT ciprofloxacin Allergy Unknown PASSED Verified 05/11/18 13:32 OUT, SEVERE RXN PER PATIENT nut - unspecified Allergy Unknown HIVES Verified 05/11/18 13:32 fluconazole AdvReac Intermediate TACHYCARDIA, Verified 05/11/18 13:32 HAIR LOSS adhesive AdvReac Mild CONTACT Verified 05/11/18 13:32 DERMATITIS Home Medications Home Medications Medication Instructions Recorded Confirmed Type acetaminophen [Tylenol Arthritis 650 mg PO Q8H PRN 03/07/18 05/21/18 History Pain] aspirin [Aspirin Low Dose] 1 tab PO QPM 03/07/18 05/21/18 History budesonide-formoterol [Symbicort] 2 puff INHALATION BID 03/07/18 05/21/18 History calcium carbonate [Calcium 500] 500 mg PO DAILY 03/07/18 05/21/18 History cholecalciferol (vitamin D3) 5,000 unit PO DAILY 03/07/18 05/21/18 History [Vitamin D3] hydroxychloroquine 200 mg PO QAM 03/07/18 05/21/18 History magnesium oxide 400 mg PO DAILY 03/07/18 05/21/18 History pantoprazole [Protonix] 40 mg PO DAILY PRN 03/07/18 05/21/18 History prednisone 3 mg PO QAM 03/07/18 05/21/18 History tramadol 50 mg PO Q6H PRN 03/07/18 05/21/18 History diltiazem HCl 120 mg PO DAILY 05/11/18 05/21/18 History lisinopril 10 mg PO DAILY 05/21/18 05/21/18 History Patient History Medical History Rheumatoid arthritis (Chronic) CHF (congestive heart failure) History of hemangioma YEARS Hx of diverticulitis of colon Hx of lower gastrointestinal bleeding Hx of congestive heart failure HTN (hypertension) Asthma (Chronic) Surgical History History of colostomy (Acute) History of colostomy reversal (Acute) Hx of right heart catheterization 2017 [facility] Family History Other History of section Social History Current Living Situation: Alone Other Information That Helps Us Care for You: No Feels Safe at Home: Yes Safety Concerns: Feels Safe At This Time Smoking Status: Former smoker Do You Dip or Chew Tobacco: No Second Hand Exposure: No Hx Alcohol Use: No Hx Substance Use: No Beliefs That Will Affect Care: None Communication Ability: Effective Review of Systems pos for shortness of breath currently, wondering if her oxygen is low, requesting decrease of IVF takes senna at home routinely 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 Diagnostic Findings CT scan showed evidence of multiple ventral hernias, small bowel obstruction with likely transition in the right lower quadrant hernia _ (1) Bowel obstruction Intestinal obstruction extent: unspecified extent Intestinal obstruction type : unspecified Qualified Code(s): K56.609 - Unspecified intestinal obstruction, unspecified as to partial versus complete obstruction (2) Abdominal hernia Hernia type: other abdominal hernia Laterality: Obstruction and gangrene presence: with obstruction but without gangrene Recurrence: Qualified Code(s) : K45.0 - Other specified abdominal hernia with obstruction, without gangrene
[2018-05-22] MEDS: POLYETHYLENE (MIRALAX) 17 GM PACK PO SCH (12:28)
[2018-05-22] MEDS: PANTOprazole 40 MG in SYRINGE 0 ML IV SCH (12:28)
[2018-05-22] MEDS ORDERED: LISINOPRIL 10 MG TAB PO SCH (16:00)
[2018-05-22] MEDS ORDERED: dilTIAZem HCL 120 MG CAPCR PO SCH (16:00)
--- NOTE | 2018-05-22 16:04 | Hospitalist Progress Note ---
Date of Service May 22, 2018 Assessment & Plan (1) Bowel obstruction: - CT supports a small bowel obstruction - has a H/O multiple abdominal surgeries and H/O diverticulitis in the past; Had a colostomy placed with ultimate reversal - She has a chronic L non-reproducible hernia and has R sided reducible hernia which looks like the SBO transition point may be at this point - She is passing small amounts of flatus but no BM yet - last BM was on Wednesday - Started on a full liquid diet and bowel regimen placed - She states she was told she is not a good surgical candidate - tertiary treatment was offered but she declined - Per surgery - not a surgical candidate for hernia repair at this facility due to medical comorbidities, loss of abdominal wall musculature given size of hernias. Given option of referral to tertiary care center / hernia center to see if they would consider elective repair. She is not interested in pursuing this at this time. - Patient would prefer not to take Zosyn as her WBC is normal - at this time will hold on antibiotics - Pain control with Tylenol and Morphine PRN - Gen Surg following - appreciate input Present on Admission?: Yes (2) CHF (congestive heart failure): - Reports some SOB to surgery however did not express that during my visit - Echo (Jan 2018) - EF 40% with RCA/LAD territory wall motion abnormality - Per review of cardiac consultation there was recommendation for heart catheterization which did not require PCI and estimated EF to be 40-50% - Will monitor closely for signs of overload - surgery reduced IVF and ultimately if tolerating diet can removed additional IV hydration Present on Admission?: Yes (3) Duodenal ulcer: - In Jan 2018 had a GI bleed requiring transfusion and transfer to [facility] with capsule study confirming duodenal ulcerations likely from NSAID use - Hgb remains stable and will monitor - Protonix 40 mg IV daily Present on Admission?: Yes (4) Rheumatoid arthritis: - Holding Hydroxychloroquine and Prednisone until dietary intake confirmed - no signs of adrenal insufficiency at this time and will adjust pending monitoring Present on Admission?: Yes (5) HTN (hypertension): - Having increased BPs likely some pain/anxiety contributing - did not want to take her BP medications today - Can continue Lisinopril 10 mg daily and Diltiazem 120 mg daily Present on Admission?: Yes (6) Asthma: - Does not appear to be in an exacerbation at this time - Last PFTs (Feb 2018) - mild obstructive airway disease that is improved from 2017 - Symbicort 2 puffs BID and Albuterol nebulizer PRN Present on Admission?: Yes (7) 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 - has chronic abnormal ocular movements - mostly of vertical movement of R eye with blinking Present on Admission?: Yes Subjective Patient admitted earlier this morning. States she is doing good pain carrion and really only wants Tylenol at this time and it seems to help She states she is passing small amounts of flatus later this AM but no bowel movements. Last BM on Wednesday She does report an appetite and denies N/V She tries to wear a binder which she states does seem to help but she notes her hernias were more prevalent when this pain started. She said she was found to have a small bowel ulceration which caused her GI bleed in the recent past. Constitutional: + fatigue; no fever, no chills and no anorexia Eyes: no worsening vision Ear, Nose, Mouth, Throat: no sore throat and no dysphagia Respiratory: no cough and no dyspnea Cardiovascular: no chest pain and no edema Gastrointestinal: + abdominal pain and + constipation; no nausea, no vomiting and no diarrhea/loose stools Genitourinary (Female): no dysuria Physical Exam 2 Vital Signs (Past 24 Hours): Last Vital Signs Temp 37.1 C 05/22/18 15:07 Pulse 69 05/22/18 15:07 Resp 16 05/22/18 15:07 BP 178/73 H 05/22/18 15:07 Pulse Ox 91 05/22/18 15:07 Constitutional: well developed and well nourished; no acute distress and not ill appearing Eyes: chronic vertical movement of R eye mostly present with blinking ENMT: Throat: uvula midline Neck: trachea midline Respiratory: normal respiratory effort Auscultation: + diminished lung sounds Cardiovascular: Rate/Rhythm: regular rate and regular rhythm Gastrointestinal (Abdomen): Inspection/Auscultation: + abnormal bowel sounds ( hypoactive but better bowel sounds in RLQ) Percussion/Palpation: + abdomen tender and abdomen soft large LLQ ventral hernia with RLQ smaller ventral hernia Musculoskeletal: Head/Neck/Chest: normocephalic and head atraumatic chronic finger/hand deformities with finger deviations related to RA Skin: no rashes, warm and dry Neurologic: moves all extremities Psychiatric: Orientation: alert and oriented x 3 Mood: + anxious mood _ (1) Bowel obstruction Intestinal obstruction extent: unspecified extent Intestinal obstruction type : unspecified Qualified Code(s): K56.609 - Unspecified intestinal obstruction, unspecified as to partial versus complete obstruction
[2018-05-22] MEDS ORDERED: HYDROmorphone INJ 0.5 MG/0.5 ML SYR IV STA (18:31)
[2018-05-22] MEDS ORDERED: PROCHLORPERAZINE 5 MG in SYRINGE 4 ML IV PRN (18:35)
[2018-05-22] MEDS: HydrALAZINE HCL 20 MG/ML VIAL IV PRN (19:01)
--- NOTE | 2018-05-22 19:07 | Hospitalist Progress Note ---
Date of Service May 22, 2018 Subjective Paged to the floor for increasing abdominal pain. Patient is a little reluctant to give information stating "I called the doctor to check me out". She finally would answer some questions and states that she feels like the pain worsened with eating however then stated she really didn't eat just sips of water. She states this is similar pain to when she came in and is cramping in nature. She states he pain is radiating up into the chest. She complains of a headache as well. Her blood pressure is elevated. She states at [facility] she had a " collapsed lung" from IVF and states the IVFs are too much. She says she is short of breath but will not give details just states "that is why I am wearing oxygen". Pain is located in the RLQ and LLQ. She has normoactive maybe slightly hyperactive bowel sounds. She has not moved her bowels but reports she still has passed a little bit of gas. She does appear uncomfortable and mostly keeps her eyes closed. Normoactive to slightly hyperactive bowel sounds x 4 quadrants Reporting tenderness in the RLQ and LLQ but no guarding or rigidity or findings to support an acute abdomen RLQ hernia protrudes out and feels like some hardened stool may be present but is reducible at this time; LLQ hernia is large and does not reduce at baseline Respiratory exam is non-labored breathing and diminished without wheeze or crackles however will moan on exhalation Cardiac exam in RRR with no murmurs; EKG with NSR at a rate of 82 bpm with non- specific ST wave changes that were present on admission EKG and compared to EKG from Jan 08, 2018 with some of these depressions however that EKG with aberrancy CXR and Abd XR ordered and awaiting read; Dilaudid and Compazine ordered and will monitor for over-sedation and pain control; Given the amount of stool present on initial CT we are running the risk of further constipation with opiates and will need to monitor, however had a GI bleed (duodenal ulcerations) that was thought to be related to NSAID use Physical Exam 2 Vital Signs (Past 24 Hours): Last Vital Signs Temp 37.1 C 05/22/18 18:10 Pulse 73 05/22/18 18:10 Resp 18 05/22/18 18:10 BP 219/75 H 05/22/18 18:10 Pulse Ox 90 05/22/18 18:10
--- NOTE | 2018-05-22 19:26 | XRay Report ---
XR chest 1V portable HISTORY: Short of breath. Atypical chest pain. COMPARISON: Chest 05/21/2018. FINDINGS: The lungs are hyperexpanded with apical predominant emphysematous changes. No pneumothorax. No pleural effusions. Bibasilar linear densities persist. The heart remains mildly enlarged. No evid ence for pulmonary edema. IMPRESSION: 1. Bibasilar linear densities persist and favor subsegmental atelectasis. 2. Stable mild cardiomegaly. Electronically signed by: Stanford Cuadra M.D. 05/22/2018 7:25 PM
--- NOTE | 2018-05-22 19:28 | XRay Report ---
KUB HISTORY: Increasing Abd Pain - 1 view COMPARISON: Abdomen and pelvis CT 05/21/2018. FINDINGS: There are few mildly dilated gas-filled loops of small bowel within the midabdomen. The col on is also gas filled and mildly distended. Large left-sided ventral hernia is again noted. Degenerat fausto changes within the visualized spine. No renal calculi. No ureteral calculi. No pneumoperitoneum or pneumatosis. IMPRESSION: 1. No change in the mildly dilated loops of small bowel within the midabdomen consistent with the pat ient's history of a small bowel obstruction. However, there is persistent gas within the mildly diste nded large bowel. Therefore, this favors a partial small bowel obstruction. 2. Large left ventral hernia persists. Electronically signed by: Stanford Cuadra M.D. 05/22/2018 7:27 PM
--- NOTE | 2018-05-22 19:37 | Emergency Department Note ---
Entered by Wagner Rinaldi acting as a scribe for History of Present Illness General Chief complaint: Abdominal Pain Stated complaint: AB PAIN Time Seen by Provider: 05/21/18 21:50 Source: patient History of Present Illness Provider complaint: Abdominal pain Onset (ago): hour(s) (Today) Location: abdomen Radiation: non-radiation Pain Consistency: + constant Maximum Pain Intensity: 7 Exacerbated By: + other (Pressure) Associated symptoms: + denies other symptoms The patient is a 77 year old female who presents to the Emergency Room with complaints of constant lower abdominal pain that started today. The pain is worse when there is pressure put on the area and nothing seems to make it better. She does currently have a hernia in her abdomen that onset following a bowel obstruction surgery she had back in 2016. She also has cardiac stents in place and a history of CHF. Home Medications Home Medications Medication Instructions Recorded Confirmed Type acetaminophen [Tylenol Arthritis 650 mg PO Q8H PRN 03/07/18 05/21/18 History Pain] aspirin [Aspirin Low Dose] 1 tab PO QPM 03/07/18 05/21/18 History budesonide-formoterol [Symbicort] 2 puff INHALATION BID 03/07/18 05/21/18 History calcium carbonate [Calcium 500] 500 mg PO DAILY 03/07/18 05/21/18 History cholecalciferol (vitamin D3) 5,000 unit PO DAILY 03/07/18 05/21/18 History [Vitamin D3] hydroxychloroquine 200 mg PO QAM 03/07/18 05/21/18 History magnesium oxide 400 mg PO DAILY 03/07/18 05/21/18 History pantoprazole [Protonix] 40 mg PO DAILY PRN 03/07/18 05/21/18 History prednisone 3 mg PO QAM 03/07/18 05/21/18 History tramadol 50 mg PO Q6H PRN 03/07/18 05/21/18 History diltiazem HCl 120 mg PO DAILY 05/11/18 05/21/18 History lisinopril 10 mg PO DAILY 05/21/18 05/21/18 History Allergies Allergy/AdvReac Type Severity Reaction Status Date / Time codeine Allergy Mild DIZZINESS Verified 05/11/18 13:32 latex Allergy Mild RASH Verified 05/11/18 13:32 moxifloxacin Allergy Mild PAIN IN Verified 05/11/18 13:32 HEEL nickel Allergy Mild RASH ON Verified 05/11/18 13:32 EARS WITH EARRINGS WITH NICKEL Sulfa (Sulfonamide Allergy Mild Rash Verified 05/11/18 13:32 Antibiotics) banana Allergy Unknown RASH Verified 05/11/18 13:32 Cipro Allergy Unknown PASSED Verified 11/16/17 08:18 OUT, SEVERE RXN PER PATIENT ciprofloxacin Allergy Unknown PASSED Verified 05/11/18 13:32 OUT, SEVERE RXN PER PATIENT nut - unspecified Allergy Unknown HIVES Verified 05/11/18 13:32 fluconazole AdvReac Intermediate TACHYCARDIA, Verified 05/11/18 13:32 HAIR LOSS adhesive AdvReac Mild CONTACT Verified 05/11/18 13:32 DERMATITIS Past Med/Surg History Medical History Rheumatoid arthritis (Chronic) CHF (congestive heart failure) History of hemangioma YEARS Hx of diverticulitis of colon Hx of lower gastrointestinal bleeding Hx of congestive heart failure HTN (hypertension) Asthma (Chronic) Surgical History History of colostomy (Acute) History of colostomy reversal (Acute) Hx of right heart catheterization 2018 [facility] Family History Other History of section Social History Current Living Situation: Alone Other Information That Helps Us Care for You: No Feels Safe at Home: Yes Safety Concerns: Feels Safe At This Time Smoking Status: Former smoker Do You Dip or Chew Tobacco: No Second Hand Exposure: No Hx Alcohol Use: No Hx Substance Use: No Beliefs That Will Affect Care: None Communication Ability: Effective Review of Systems See HPI for pertinent positives & negatives. and A total of 10 systems reviewed and were otherwise negative Physical Exam Vital Signs Vital Signs - 24 hr 05/21/18 21:50 05/21/18 22:00 05/21/18 22:05 Temperature 36.9 C Temperature Source Oral Sepsis Recent Fever Within 48 Hours No Sepsis New/Unexplained Change in Mental Status No Sepsis Action Taken by Nursing No Action Required Pulse Rate 62 71 Pulse Rate [Left Apical] Pulse Rate [Right Finger] Pulse Rhythm [Left Apical] Pulse Rhythm [Right Finger] Pulse Strength [Left Apical] Pulse Strength [Right Finger] Respiratory Rate 15 20 Respiratory Effort / Characteristics Non-Labored Spontaneous Respiratory Depth Normal Respiratory Pattern Regular Blood Pressure 170/80 H 184/72 H Blood Pressure [Left Arm] Blood Pressure Mean 110 109 Blood Pressure Mean [Left Arm] Blood Pressure Position [Left Arm] Pulse Oximetry 90 88 L 96 Oxygen Delivery Method Room Air Room Air Nasal Cannula Oxygen Flow Rate 4 05/21/18 22:30 05/21/18 23:37 05/22/18 01:00 Temperature 36.9 C Temperature Source Oral Oral Sepsis Recent Fever Within 48 Hours Sepsis New/Unexplained Change in Mental Status Sepsis Action Taken by Nursing Pulse Rate 72 Pulse Rate [Left Apical] 66 79 Pulse Rate [Right Finger] Pulse Rhythm [Left Apical] Pulse Rhythm [Right Finger] Pulse Strength [Left Apical] Pulse Strength [Right Finger] Respiratory Rate 23 22 20 Respiratory Effort / Characteristics Non-Labored Spontaneous Non-Labored Spontaneous Respiratory Depth Normal Normal Respiratory Pattern Regular Regular Blood Pressure Blood Pressure [Left Arm] 144/66 H 132/62 Blood Pressure Mean Blood Pressure Mean [Left Arm] 92 85 Blood Pressure Position [Left Arm] Pulse Oximetry 93 99 97 Oxygen Delivery Method Nasal Cannula Nasal Cannula Nasal Cannula Oxygen Flow Rate 2 2 05/22/18 02:10 05/22/18 02:20 05/22/18 07:00 Temperature 36.8 C 36.7 C Temperature Source Oral Oral Oral Sepsis Recent Fever Within 48 Hours Sepsis New/Unexplained Change in Mental Status Sepsis Action Taken by Nursing Pulse Rate Pulse Rate [Left Apical] 67 66 66 Pulse Rate [Right Finger] Pulse Rhythm [Left Apical] Regular Pulse Rhythm [Right Finger] Pulse Strength [Left Apical] Normal Pulse Strength [Right Finger] Respiratory Rate 20 18 18 Respiratory Effort / Characteristics Non-Labored Spontaneous Non-Labored Respiratory Depth Normal Normal Respiratory Pattern Regular Regular Blood Pressure Blood Pressure [Left Arm] 120/58 L 148/70 H 152/75 H Blood Pressure Mean Blood Pressure Mean [Left Arm] 78 96 100 Blood Pressure Position [Left Arm] Sitting Pulse Oximetry 96 94 94 Oxygen Delivery Method Nasal Cannula Room Air Room Air Oxygen Flow Rate 2 05/22/18 10:29 05/22/18 15:07 05/22/18 16:51 Temperature 37.1 C Temperature Source Oral Sepsis Recent Fever Within 48 Hours Sepsis New/Unexplained Change in Mental Status Sepsis Action Taken by Nursing Pulse Rate Pulse Rate [Left Apical] Pulse Rate [Right Finger] 69 Pulse Rhythm [Left Apical] Pulse Rhythm [Right Finger] Pulse Strength [Left Apical] Pulse Strength [Right Finger] Respiratory Rate 16 Respiratory Effort / Characteristics Respiratory Depth Respiratory Pattern Blood Pressure Blood Pressure [Left Arm] 178/73 H 182/83 H Blood Pressure Mean Blood Pressure Mean [Left Arm] 108 116 Blood Pressure Position [Left Arm] Lying Sitting Pulse Oximetry 93 91 Oxygen Delivery Method Room Air Room Air Oxygen Flow Rate 05/22/18 18:02 05/22/18 18:10 Temperature 37.1 C Temperature Source Oral Sepsis Recent Fever Within 48 Hours Sepsis New/Unexplained Change in Mental Status Sepsis Action Taken by Nursing Pulse Rate Pulse Rate [Left Apical] Pulse Rate [Right Finger] 73 Pulse Rhythm [Left Apical] Pulse Rhythm [Right Finger] Regular Pulse Strength [Left Apical] Pulse Strength [Right Finger] Normal Respiratory Rate 18 Respiratory Effort / Characteristics Non-Labored Respiratory Depth Normal Respiratory Pattern Regular Blood Pressure Blood Pressure [Left Arm] 203/80 H 219/75 H Blood Pressure Mean Blood Pressure Mean [Left Arm] 121 123 Blood Pressure Position [Left Arm] Lying Lying Pulse Oximetry 90 Oxygen Delivery Method Room Air Oxygen Flow Rate GENERAL: Awake, alert, well-appearing, in no distress. Facial droop at baseline. HENT: Normocephalic, atraumatic. Oropharynx unremarkable. EYES: Normal conjunctiva. Sclera non-icteric. NECK: Supple. No nuchal rigidity. FROM. No masses. RESPIRATORY: Clear to auscultation. No wheezes. No rales. Normal respiratory effort. CARDIAC: Normal rate. Normal rhythm. No murmurs. No rubs. Extremities warm and well perfused. Pulses equal. No JVD. GI: Soft, non-distended. RLQ and LLQ pain on palpation. No rebound or guarding. No masses. RECTAL: Deferred. MUSCULOSKELETAL: Atraumatic. Chest examination reveals no tenderness. The back is symmetrical on inspection without obvious abnormality. There is no CVA tenderness to palpation. No joint edema. LOWER EXTREMITIES: Calves are equal size bilaterally and non-tender. No edema. No discoloration. NEURO: Normal sensorium. No sensory or motor deficits noted. Course 2154: Past medical records reviewed. The patient was evaluated in room C10, and a complete history and physical examination were performed. 2356: After seeing the CT results, I spoke to Dr. Galen Mckeon who said the patient needs to be transferred to an acute care center. 0000: I reevaluated the patient. We had a lengthy discussion about the uncertainty that she can be treated here but she is refusing transfer and wants to be admitted. She will see the surgeon tomorrow but I reminded her that she is not a surgical candidate and she could here. That did not change her opinion. I also offered an NG tube and she refused that too. 0011: I spoke to Dr. Galen Mckeon about what the patient said and he said that is fine. 0100: I spoke Dr. Gregorio Vinson [facility] Hospitalist about the patient's case and he is going to accept the patient for further evaluation. Consultations Consultation #1: After seeing the CT results, I spoke to Dr. Galen Mckeon who said the patient needs to be transferred to an acute care center. Time: 23:57 Consultation #2: I spoke to Dr. Galen Mckeon about what the patient said and he said that is fine. Time: 00:11 Consultation #3: I spoke Dr. Gregorio Vinson [facility] Hospitalist about the patient' s case and he is going to accept the patient for further evaluation. Time: 01:00 Administered Medications Acetaminophen (Ofirmev) 1,000 mg IV Q8H PRN PRN Reason: Pain or Fever Stop: 06/21/18 02:42 Last Admin: 05/22/18 12:28 Dose: 1,000 mg Admin: 05/22/18 05:21 Dose: 1,000 mg Budesonide/Formoterol Fumarate (Symbicort 160mcg/4.5mcg) 2 puffs INH BID HOWIE Stop: 06/21/18 08:59 Last Admin: 05/22/18 08:20 Dose: 2 puffs Diltiazem HCl (Cardizem Cd) 120 mg PO DAILY HOWIE Stop: 06/21/18 15:59 Last Admin: 05/22/18 16:19 Dose: Not Given Hydralazine HCl (Hydralazine Hcl) 10 mg IV Q6H PRN PRN Reason: Hypertension Stop: 06/21/18 18:37 Last Admin: 05/22/18 19:01 Dose: 10 mg Potassium Chloride/Sodium Chloride (Normal Saline W/20 Meq Kcl) 20 meq in 1, 000 mls @ 50 mls/hr IV .Q20H [facility] Stop: 06/21/18 02:42 Last Admin: 05/22/18 16:36 Dose: 50 mls/hr Infusion: 05/22/18 14:52 Dose: 0 mls/hr Infusion: 05/22/18 14:25 Dose: 100 mls/hr Infusion: 05/22/18 06:14 Dose: 100 mls/hr Infusion: 05/22/18 05:27 Dose: 0 mls/hr Infusion: 05/22/18 03:59 Dose: 100 mls/hr Infusion: 05/22/18 02:58 Dose: 0 mls/hr Admin: 05/22/18 02:56 Dose: 100 mls/hr Pantoprazole Sodium 40 mg/ (Syringe) 10 mls @ 5 mls/min IV DAILY@1100 [facility] Stop: 06/21/18 10:59 Last Admin: 05/22/18 12:28 Dose: 5 mls/min Piperacillin Sod/Tazobactam (Sod 3.375 gm/ Dextrose) 115 mls @ 28.75 mls/hr IV Q8H HOWIE; Protocol Stop: 06/01/18 07:59 Last Admin: 05/22/18 08:45 Dose: Not Given Prochlorperazine 5 mg/ Syringe 5 mls @ 5 mls/min IV Q4H PRN PRN Reason: Nausea And Vomiting Stop: 06/21/18 18:34 Last Admin: 05/22/18 19:01 Dose: 5 mls/min Lisinopril (Zestril) 10 mg PO DAILY [facility] Stop: 06/21/18 15:59 Last Admin: 05/22/18 16:20 Dose: Not Given Morphine Sulfate (Morphine Sulfate) 2 mg IV Q3H PRN PRN Reason: Pain Stop: 06/05/18 02:42 Last Admin: 05/22/18 16:34 Dose: 2 mg Ondansetron HCl (Zofran) 4 mg IV Q6H PRN PRN Reason: NAUSEA/VOMITING Stop: 06/21/18 02:42 Last Admin: 05/22/18 16:44 Dose: 4 mg Polyethylene Glycol (Miralax Powder Packet) 17 gm PO DAILY [facility] Stop: 06/21/18 10:29 Last Admin: 05/22/18 12:28 Dose: 17 gm Discontinued Medications Hydromorphone HCl (Dilaudid) 0.5 mg IV Q15M PRN PRN Reason: Pain Stop: 06/04/18 22:10 Last Admin: 05/21/18 22:35 Dose: 0.5 mg Hydromorphone HCl (Dilaudid) 0.5 mg IV NOW STA Stop: 05/22/18 18:32 Last Admin: 05/22/18 19:01 Dose: 0.5 mg Sodium Chloride (Nss 1000ml) 500 mls @ 999 mls/hr IV .Q31M ONE Stop: 05/21/18 22:43 Last Infusion: 05/22/18 00:06 Dose: 0 mls/hr Admin: 05/21/18 22:34 Dose: 999 mls/hr Piperacillin Sod/Tazobactam (Sod 3.375 gm/ Dextrose) 115 mls @ 230 mls/hr IV NOW STA Stop: 05/22/18 03:16 Last Infusion: 05/22/18 04:06 Dose: 0 mls/hr Admin: 05/22/18 02:56 Dose: 230 mls/hr Ioversol (Optiray 320 125ml) 113 ml IV ONCE PRN PRN Reason: Interaction Checking Stop: 05/25/18 23:10 Last Admin: 05/21/18 23:12 Dose: 113 ml Metoclopramide HCl (Reglan) 10 mg IV NOW STA Stop: 05/21/18 22:12 Last Admin: 05/21/18 22:35 Dose: 10 mg Medical Decision Making Differential Diagnosis Differential diagnoses includes but is not limited to gastritis, peptic ulcer disease, GERD, gallbladder disease, pancreatitis, small bowel obstruction, acute coronary syndrome, pericarditis, ischemic bowel, irritable bowel disease, irritable bowel syndrome, appendicitis, diverticulitis, malignancy, hernia, urinary tract infection, torsion, perforation, trauma, infectious. Medical Records Attestation: I reviewed the patient's medical records. Home Medications Current Medication List: was personally reviewed by me Laboratory Data Attestation: I reviewed the patient's lab results. Result diagrams: 05/22/18 07:03 05/22/18 07:03 Lab Results 05/21/18 05/21/18 05/21/18 Range/Units 22:46 22:46 22:52 WBC 15.10 H (4.8-10.8) K/uL RBC 4.07 L (4.2-5.4) M/uL Hgb 12.5 (12.0-16.0) g/dL POC Hgb 12.9 (12.0-16.0) g/dl Hct 37.5 (37-47) % POC Hct 38 (37-47) % MCV 92.1 (80-100) fL MCH 30.7 (25-34) pg MCHC 33.3 (32-36) g/dL RDW Std Deviation 48.5 H (36.4-46.3) fL RDW Coeff of Chauncey 14.4 (11.5-14.5) % Plt Count 327 (130-400) K/uL MPV 9.3 (7.4-10.4) fL Immature Gran % (Auto) 0.4 % Neut % (Auto) 84.4 % Lymph % (Auto) 7.0 % [place] % (Auto) 7.7 % Eos % (Auto) 0.3 % Baso % (Auto) 0.2 % Immature Gran # (Auto) 0.06 H (0.00-0.02) K/uL Neut # (Auto) 12.74 H (1.4-6.5) K/uL Lymph # (Auto) 1.06 L (1.2-3.4) K/uL [place] # (Auto) 1.16 H (0.11-0.59) K/uL Eos # (Auto) 0.05 (0-0.5) K/uL Baso # (Auto) 0.03 (0-0.2) K/uL PT (9.0-12.0) Seconds INR (0.9-1.1) APTT (21.0-31.0) Seconds PTT Ratio POC Sodium 131 L (135-144) mEq/L Sodium 129 L (136-145) mmol/L POC Potassium 3.7 (3.3-5.0) mEq/L Potassium 3.6 (3.5-5.1) mmol/L POC Chloride 95 L (101-112) mEq/L Chloride 96 L (98-107) mmol/L Carbon Dioxide 24 (21-32) mmol/L POC Total CO2 24 (24-31) mEq/l Anion Gap 9.0 (3-11) POC Anion Gap 17.0 (16-25) mmol/L POC BUN 15 (7-18) mg/dl BUN 16 (7-18) mg/dl Creatinine 0.52 L (0.6-1.2) mg/dl POC Creatinine 0.4 L (0.6-1.3) mg/dl Est Cr Clr Drug Dosing 70.5 ml/min Est GFR ( Amer) 106.1 Est GFR (Non-Af Amer) 91.5 BUN/Creatinine Ratio 30.1 H (10-20) Glucose 144 H (70-99) mg/dl POC Glucose (other) 155 H (70-99) mg/dl Calcium 9.2 (8.5-10.1) mg/dl POC Ioniz Calcium Mckenna 1.26 (1.12-1.32) mmol/l Total Bilirubin 0.5 (0.2-1) mg/dl AST 16 (15-37) U/L ALT 18 (12-78) U/L Alkaline Phosphatase 70 (45-117) U/L Total Creatine Kinase 66 (26-192) U/L CK-MB (CK-2) 1.4 (0.5-3.6) ng/ml CK/CKMB % Calc 2.1 (0-3.0) Troponin I < 0.015 (0-0.045) ng/ml Total Protein 7.1 (6.4-8.2) gm/dl Albumin 3.2 L (3.4-5.0) gm/dl Globulin 3.9 (2.5-4.0) gm/dl Albumin/Globulin Ratio 0.8 L (0.9-2) Lipase 70 L (73-393) U/L Urine Color Urine Appearance (Clear) Urine pH (4.5-7.5) Ur Specific [place] (1.000-1.030) Urine Protein (Negative) Urine Glucose (UA) (Negative) Urine Ketones (Negative) Urine Blood (Negative) Urine Nitrite (Negative) Urine Bilirubin (Negative) Urine Urobilinogen (Negative) Ur Leukocyte Esterase (Negative) Urine WBC (Auto) (0-5) /hpf Urine RBC (Auto) (0-4) /hpf U Hyaline Cast (Auto) (0-5) /lpf U Epithel Cells (Auto) (0-5) /lpf Urine Bacteria (Auto) (Negative) 05/22/18 05/22/18 05/22/18 Range/Units 05:29 07:03 07:03 WBC 9.45 (4.8-10.8) K/uL RBC 3.70 L (4.2-5.4) M/uL Hgb 11.1 L (12.0-16.0) g/dL POC Hgb (12.0-16.0) g/dl Hct 34.3 L (37-47) % POC Hct (37-47) % MCV 92.7 (80-100) fL MCH 30.0 (25-34) pg MCHC 32.4 (32-36) g/dL RDW Std Deviation 48.9 H (36.4-46.3) fL RDW Coeff of Chauncey 14.4 (11.5-14.5) % Plt Count 296 (130-400) K/uL MPV 9.4 (7.4-10.4) fL Immature Gran % (Auto) 0.2 % Neut % (Auto) 75.9 % Lymph % (Auto) 12.4 % [place] % (Auto) 10.9 % Eos % (Auto) 0.5 % Baso % (Auto) 0.1 % Immature Gran # (Auto) 0.02 (0.00-0.02) K/uL Neut # (Auto) 7.17 H (1.4-6.5) K/uL Lymph # (Auto) 1.17 L (1.2-3.4) K/uL [place] # (Auto) 1.03 H (0.11-0.59) K/uL Eos # (Auto) 0.05 (0-0.5) K/uL Baso # (Auto) 0.01 (0-0.2) K/uL PT 10.6 (9.0-12.0) Seconds INR 1.1 (0.9-1.1) APTT 28.6 (21.0-31.0) Seconds PTT Ratio 1.1 POC Sodium (135-144) mEq/L Sodium (136-145) mmol/L POC Potassium (3.3-5.0) mEq/L Potassium (3.5-5.1) mmol/L POC Chloride (101-112) mEq/L Chloride (98-107) mmol/L Carbon Dioxide (21-32) mmol/L POC Total CO2 (24-31) mEq/l Anion Gap (3-11) POC Anion Gap (16-25) mmol/L POC BUN (7-18) mg/dl BUN (7-18) mg/dl Creatinine (0.6-1.2) mg/dl POC Creatinine (0.6-1.3) mg/dl Est Cr Clr Drug Dosing ml/min Est GFR ( Amer) Est GFR (Non-Af Amer) BUN/Creatinine Ratio (10-20) Glucose (70-99) mg/dl POC Glucose (other) (70-99) mg/dl Calcium (8.5-10.1) mg/dl POC Ioniz Calcium Mckenna (1.12-1.32) mmol/l Total Bilirubin (0.2-1) mg/dl AST (15-37) U/L ALT (12-78) U/L Alkaline Phosphatase (45-117) U/L Total Creatine Kinase (26-192) U/L CK-MB (CK-2) (0.5-3.6) ng/ml CK/CKMB % Calc (0-3.0) Troponin I (0-0.045) ng/ml Total Protein (6.4-8.2) gm/dl Albumin (3.4-5.0) gm/dl Globulin (2.5-4.0) gm/dl Albumin/Globulin Ratio (0.9-2) Lipase (73-393) U/L Urine Color Yellow Urine Appearance Clear (Clear) Urine pH 7.0 (4.5-7.5) Ur Specific [place] > 1.045 H (1.000-1.030) Urine Protein 2+ H (Negative) Urine Glucose (UA) Negative (Negative) Urine Ketones Negative (Negative) Urine Blood Negative (Negative) Urine Nitrite Negative (Negative) Urine Bilirubin Negative (Negative) Urine Urobilinogen Negative (Negative) Ur Leukocyte Esterase Trace H (Negative) Urine WBC (Auto) 10-30 H (0-5) /hpf Urine RBC (Auto) 5-10 H (0-4) /hpf U Hyaline Cast (Auto) 1-5 (0-5) /lpf U Epithel Cells (Auto) 20-30 H (0-5) /lpf Urine Bacteria (Auto) Negative (Negative) 05/22/18 Range/Units 07:03 WBC (4.8-10.8) K/uL RBC (4.2-5.4) M/uL Hgb (12.0-16.0) g/dL POC Hgb (12.0-16.0) g/dl Hct (37-47) % POC Hct (37-47) % MCV (80-100) fL MCH (25-34) pg MCHC (32-36) g/dL RDW Std Deviation (36.4-46.3) fL RDW Coeff of Chauncey (11.5-14.5) % Plt Count (130-400) K/uL MPV (7.4-10.4) fL Immature Gran % (Auto) % Neut % (Auto) % Lymph % (Auto) % [place] % (Auto) % Eos % (Auto) % Baso % (Auto) % Immature Gran # (Auto) (0.00-0.02) K/uL Neut # (Auto) (1.4-6.5) K/uL Lymph # (Auto) (1.2-3.4) K/uL [place] # (Auto) (0.11-0.59) K/uL Eos # (Auto) (0-0.5) K/uL Baso # (Auto) (0-0.2) K/uL PT (9.0-12.0) Seconds INR (0.9-1.1) APTT (21.0-31.0) Seconds PTT Ratio POC Sodium (135-144) mEq/L Sodium 131 L (136-145) mmol/L POC Potassium (3.3-5.0) mEq/L Potassium 4.1 (3.5-5.1) mmol/L POC Chloride (101-112) mEq/L Chloride 98 (98-107) mmol/L Carbon Dioxide 23 (21-32) mmol/L POC Total CO2 (24-31) mEq/l Anion Gap 9.0 (3-11) POC Anion Gap (16-25) mmol/L POC BUN (7-18) mg/dl BUN 14 (7-18) mg/dl Creatinine 0.56 L (0.6-1.2) mg/dl POC Creatinine (0.6-1.3) mg/dl Est Cr Clr Drug Dosing 65.5 ml/min Est GFR ( Amer) 103.5 Est GFR (Non-Af Amer) 89.3 BUN/Creatinine Ratio 24.1 H (10-20) Glucose 92 (70-99) mg/dl POC Glucose (other) (70-99) mg/dl Calcium 8.9 (8.5-10.1) mg/dl POC Ioniz Calcium Mckenna (1.12-1.32) mmol/l Total Bilirubin 0.4 (0.2-1) mg/dl AST 12 L (15-37) U/L ALT 15 (12-78) U/L Alkaline Phosphatase 60 (45-117) U/L Total Creatine Kinase (26-192) U/L CK-MB (CK-2) (0.5-3.6) ng/ml CK/CKMB % Calc (0-3.0) Troponin I (0-0.045) ng/ml Total Protein 6.3 L (6.4-8.2) gm/dl Albumin 2.8 L (3.4-5.0) gm/dl Globulin 3.5 (2.5-4.0) gm/dl Albumin/Globulin Ratio 0.8 L (0.9-2) Lipase (73-393) U/L Urine Color Urine Appearance (Clear) Urine pH (4.5-7.5) Ur Specific [place] (1.000-1.030) Urine Protein (Negative) Urine Glucose (UA) (Negative) Urine Ketones (Negative) Urine Blood (Negative) Urine Nitrite (Negative) Urine Bilirubin (Negative) Urine Urobilinogen (Negative) Ur Leukocyte Esterase (Negative) Urine WBC (Auto) (0-5) /hpf Urine RBC (Auto) (0-4) /hpf U Hyaline Cast (Auto) (0-5) /lpf U Epithel Cells (Auto) (0-5) /lpf Urine Bacteria (Auto) (Negative) Imaging Data Radiologist's Impression: Radiology results as stated below per my review and the radiologist's interpretation: XR chest 1V portable CLINICAL HISTORY: Atypical chest pain COMPARISON STUDY: 06/20/2016 FINDINGS: The heart is borderline enlarged. There is no overt failure. There is no lobar consolidation. Basilar opacities, are likely atelectatic. Increased density of the right lung apex remain stable.[ IMPRESSION: 1. Borderline cardiomegaly with chronic basilar atelectasis/scarring 2. No evidence of failure. Electronically signed by: Jerry Hudson M.D. 05/21/2018 11:[address] ABDOMEN/ PELVIS With Contrast: Bilateral abdominal wall hernia containing fat and bowel. Distended bowel loops and decompressed segments, worrisome for bowel obstruction. Cardiomegaly. No radiodense gallstones or pancreatitis. Appendix not identified. Mild consolidative atelectasis in the left lung base. Radiologist: Alexander Plunkett MD ECG Data Attestation: I personally reviewed and interpreted this ECG as follows: Indication: abdominal pain Rate (beats per minute): 57 Rhythm: sinus bradycardia Findings: no ST depression and no ST elevation Blood Pressure Blood Pressure Findings: Elevated blood pressure Blood Pressure Disposition: further management by hospitalist DEDRICK Dominguez This is a 77-year-old female who presents emergency department complaining of severe abdominal pain. The patient was given fentanyl by EMS prior to arrival. Upon arrival to the emergency department patient is given planing of severe right lower quadrant and left lower quadrant abdominal pain. She was given Dilaudid for the pain and sent for a CAT scan of the abdomen pelvis. This is concerning for an incarcerated abdominal wall hernia. I tried to re-reduce this on physical examination. Repeat examination does reveal improvement in the patient's symptoms. I expressed my concern about how serious this was to the patient and did discuss the case with the surgeon business liaison officer who recommended the patient be transferred to a tertiary care center. The patient is refusing to go to a tertiary care center. I stressed that she may from this without proper care. I also strongly recommended an NG tube be placed however the patient is refusing. Patient is requesting to be admitted to the hospital here. The patient has demonstrated no significant defect in the decision-making capacity to make choices. The encounter had a good level of communication with language the patient can easily understand. I feel trust was present and conveyed that our action/intentions were the best interest of the patient. The patient was given all relevant information and reiterated the explained risks and benefits. The patient explained the reasoning for refusing treatment clearly. The patient possesses and expresses a set of values and goals, the ability to communicate and understand, and an ability to reason and deliberate. Despite acting emphatically, attentively and with the utmost patient's the patient declined further treatment. I offered options, negotiated, and explored every reasonable choice. I must respect the patient's autonomy and that they feel that their choices are best for them despite the associated risks of leaving without completing the evaluation. The patient was informed about the findings as listed above. All questions were answered and he was pleased with the treatment. Return instructions were outlined and the patient was discharged in stable condition. Impression & Plan Abdominal pain, Bowel obstruction, Abdominal hernia Discharge Plan Visit Data *Final* Discharge Date/Time: 05/22/18 02:16 Chief Complaint: Abdominal Pain Stated Complaint: AB PAIN ED Provider: Delano Knox Discharge Problem: Abdominal pain, Bowel obstruction, Abdominal hernia Patient Disposition: Admitted As Inpatient Discharge Instructions Interventions: ED Discharge Assessment Last Done: 05/22/18 02:16 The scribe's documentation has been prepared under my direction and personally reviewed by me in its entirety. I confirm that the note above accurately reflects all work, treatment, procedures, and medical decision making performed by me.
[2018-05-22] MEDS ORDERED: ACETAMINOPHEN 1000 MG/100 ML IV IV SCH (20:15)
[2018-05-22] MEDS ORDERED: BUDESONIDE/FORMOTEROL FUMARATE 160/4.5 60 PUFFS/INHALER INH SCH (21:00)
[2018-05-22] MEDS: ACETAMINOPHEN 1,000 MG/100 ML VIAL IV SCH (21:15)
[2018-05-23] MEDS: ACETAMINOPHEN 1,000 MG/100 ML VIAL IV SCH ×3 (05:00→21:29)
[2018-05-23 07:33] LABS: Basophils # (auto) 0.02 K/uL (0-0.2); Basophils % (auto) 0.2 %; Eosinophils # (auto) 0.08 K/uL (0-0.5); Eosinophils % (auto) 0.8 %; Hematocrit (blood only) 35.8 % (37-47); Hemoglobin 11.4 g/dL (12.0-16.0); Immature Granulocytes # (auto) 0.02 K/uL (0.00-0.02); Immature Granulocytes % (auto) 0.2 %; Lymphocytes # (auto) 1.12 K/uL (1.2-3.4); Lymphocytes % (auto) 11.3 %; Mean Corpuscular Hgb Conc 31.8 g/dL (32-36); Mean Corpuscular Volume 94.2 fL (80-100); Mean Platelet Volume 9.4 fL (7.4-10.4); Monocytes # (auto) 1.01 K/uL (0.11-0.59); Monocytes % (auto) 10.2 %; Neutrophils # (auto) 7.62 K/uL (1.4-6.5); Neutrophils % (auto) 77.3 %; Platelet Count 320 K/uL (130-400); RDW Coefficient of Variation 14.6 % (11.5-14.5); White Blood Count 9.87 K/uL (4.8-10.8)
[2018-05-23 07:57] LABS: INR 1.1 (0.9-1.1); Prothrombin Time 10.6 Seconds (9.0-12.0)
[2018-05-23 08:00] LABS: BUN Creatinine Ratio 23.4 (10-20); Calcium 8.9 mg/dl (8.5-10.1); Creatinine Clr Calc Pharmacy 89.4 ml/min; Est GFR (African American) 114.7; Potassium 4.2 mmol/L (3.5-5.1)
[2018-05-23 08:04] LABS: Albumin Globulin Ratio 0.9 (0.9-2); Bilirubin,Total 0.4 mg/dl (0.2-1); Globulin 3.4 gm/dl (2.5-4.0); Total Protein 6.4 gm/dl (6.4-8.2)
[2018-05-23] MEDS: BUDESONIDE/FORMOTEROL FUMARATE 160/4.5 60 PUFFS/INHALER INH SCH ×2 (09:39→21:28)
[2018-05-23] MEDS: HydrALAZINE HCL 20 MG/ML VIAL IV PRN ×2 (10:05→23:43)
[2018-05-23] MEDS: PANTOprazole 40 MG in SYRINGE 0 ML IV SCH (11:51)
[2018-05-23] MEDS: NSS + 20MEQ KCL 20 MEQ/1,000 ML BAG IV SCH (11:51)
[2018-05-23] MEDS: POLYETHYLENE (MIRALAX) 17 GM PACK PO SCH (11:52)
[2018-05-23] MEDS: HYDROmorphone INJ 0.5 MG/0.5 ML SYR IV PRN ×2 (11:58→22:02)
--- NOTE | 2018-05-23 15:12 | Surgery Progress Note ---
Date of Service May 23, 2018 Assessment & Plan (1) Bowel obstruction: Likely secondary to incarcerated right ventral hernia which was reduced originally. Right ventral hernia present again on examination but reducible. + nausea and emesis last night + abdominal discomfort at right ventral hernia KUB 05/22/18 showing persistent dilated SB however gas within colon consistent with partial SBO Abdomen is soft, no peritonitis or rigidity. Lactic acid 0.8 this am, no leukocytosis. Plan: Would recommend transfer to tertiary center given her multiple hernias and loss of abdominal wall musculature. She was not interested in transfer on presentation and is still not currently interested in transfer today. Discussed case with Dr. Philippe who states [facility] was called about possible transfer but stated they would not take transfer as they recommended conservative management at first and would not plan any reconstructive abdominal wall repair unless emergently indicated. Given patient's episode of vomiting last night and pain with liquids, would recommend small slovak NGT to LIS if possible and keep patient NPO for bowel rest. Continue IV fluids at low rate. Pain medication prn, consider IV tylenol for pain management to decrease narcotics. IV Zofran prn nausea OOB to chair and ambulate with assistance to increase GI motility Will need to be on good bowel regimen to prevent constipation once diet advanced repeat am labs (2) Abdominal hernia: Multiple ventral hernias with nonreducible large left sided hernia and smaller, incarcerated right sided hernia that was source of SBO. The right sided hernia was able to be reduced. Loss of abdominal wall musculature given size of hernias. Plan as above. (3) CHF (congestive heart failure): Pt feeling subjectively short of breath. IVF decreased to 50 cc/hr, now currently on oxygen via nasal cannula Supervising Physician Co-Signing Physician Notes Dr. Carbone has seen and examined pt, agrees with above Subjective "not feeling well this morning" my blood pressure is up. States she had some abdominal pain after eating last night and was given pain medication and had some vomiting. She was feeling short of breath and her oxygen was at 88 so she is currently on oxygen via nasal cannula. States she is having some discomfort in the abdomen right now. No bowel movement + flatus Physical Exam 2 Vital Signs (Past 24 Hours): Last Vital Signs Temp 36.8 C 05/23/18 14:52 Pulse 67 05/23/18 14:52 Resp 22 05/23/18 14:52 BP 168/69 H 05/23/18 14:52 Pulse Ox 96 05/23/18 14:52 Constitutional: WD/WN, vitals as above no acute distress Respiratory: normal respiratory effort; no respiratory distress, no labored breathing, no retractions and does not use accessory muscles Gastrointestinal (Abdomen): Percussion/Palpation: + abdomen tender (RLQ at site of right lower ventral hernia), + guarding (RLQ) and abdomen soft; abdomen not rigid Large left lower ventral hernia which is non-reducible at baseline , soft, non-tender Right lower ventral hernia with pain on palpation, reducible but tender (site of her bowel obstruction when presented) Skin: no rashes, warm and dry Psychiatric: A+Ox3, euthymic affect Results & Data Laboratory Results 05/23/18 05/23/18 05/23/18 Range/Units 11:26 07:06 07:06 WBC (4.8-10.8) K/uL RBC (4.2-5.4) M/uL Hgb (12.0-16.0) g/dL Hct (37-47) % MCV (80-100) fL MCH (25-34) pg MCHC (32-36) g/dL RDW Std Deviation (36.4-46.3) fL RDW Coeff of Chauncey (11.5-14.5) % Plt Count (130-400) K/uL MPV (7.4-10.4) fL Immature Gran % (Auto) % Neut % (Auto) % Lymph % (Auto) % [place] % (Auto) % Eos % (Auto) % Baso % (Auto) % Immature Gran # (Auto) (0.00-0.02) K/uL Neut # (Auto) (1.4-6.5) K/uL Lymph # (Auto) (1.2-3.4) K/uL [place] # (Auto) (0.11-0.59) K/uL Eos # (Auto) (0-0.5) K/uL Baso # (Auto) (0-0.2) K/uL PT 10.6 (9.0-12.0) Seconds INR 1.1 (0.9-1.1) Sodium 133 L (136-145) mmol/L Potassium 4.2 (3.5-5.1) mmol/L Chloride 101 (98-107) mmol/L Carbon Dioxide 23 (21-32) mmol/L Anion Gap 9.0 (3-11) BUN 10 (7-18) mg/dl Creatinine 0.41 L (0.6-1.2) mg/dl Est Cr Clr Drug Dosing 89.4 ml/min Est GFR ( Amer) 114.7 Est GFR (Non-Af Amer) 99.0 BUN/Creatinine Ratio 23.4 H (10-20) Glucose 85 (70-99) mg/dl Lactate 0.8 (0.4-2.0) mmol/L Calcium 8.9 (8.5-10.1) mg/dl Total Bilirubin 0.4 (0.2-1) mg/dl AST 14 L (15-37) U/L ALT 15 (12-78) U/L Alkaline Phosphatase 58 (45-117) U/L Total Protein 6.4 (6.4-8.2) gm/dl Albumin 3.0 L (3.4-5.0) gm/dl Globulin 3.4 (2.5-4.0) gm/dl Albumin/Globulin Ratio 0.9 (0.9-2) 05/23/18 Range/Units 07:06 WBC 9.87 (4.8-10.8) K/uL RBC 3.80 L (4.2-5.4) M/uL Hgb 11.4 L (12.0-16.0) g/dL Hct 35.8 L (37-47) % MCV 94.2 (80-100) fL MCH 30.0 (25-34) pg MCHC 31.8 L (32-36) g/dL RDW Std Deviation 50.0 H (36.4-46.3) fL RDW Coeff of Chauncey 14.6 H (11.5-14.5) % Plt Count 320 (130-400) K/uL MPV 9.4 (7.4-10.4) fL Immature Gran % (Auto) 0.2 % Neut % (Auto) 77.3 % Lymph % (Auto) 11.3 % [place] % (Auto) 10.2 % Eos % (Auto) 0.8 % Baso % (Auto) 0.2 % Immature Gran # (Auto) 0.02 (0.00-0.02) K/uL Neut # (Auto) 7.62 H (1.4-6.5) K/uL Lymph # (Auto) 1.12 L (1.2-3.4) K/uL [place] # (Auto) 1.01 H (0.11-0.59) K/uL Eos # (Auto) 0.08 (0-0.5) K/uL Baso # (Auto) 0.02 (0-0.2) K/uL PT (9.0-12.0) Seconds INR (0.9-1.1) Sodium (136-145) mmol/L Potassium (3.5-5.1) mmol/L Chloride (98-107) mmol/L Carbon Dioxide (21-32) mmol/L Anion Gap (3-11) BUN (7-18) mg/dl Creatinine (0.6-1.2) mg/dl Est Cr Clr Drug Dosing ml/min Est GFR ( Amer) Est GFR (Non-Af Amer) BUN/Creatinine Ratio (10-20) Glucose (70-99) mg/dl Lactate (0.4-2.0) mmol/L Calcium (8.5-10.1) mg/dl Total Bilirubin (0.2-1) mg/dl AST (15-37) U/L ALT (12-78) U/L Alkaline Phosphatase (45-117) U/L Total Protein (6.4-8.2) gm/dl Albumin (3.4-5.0) gm/dl Globulin (2.5-4.0) gm/dl Albumin/Globulin Ratio (0.9-2) Diagnostic Findings KUB HISTORY: Increasing Abd Pain - 1 view COMPARISON: Abdomen and pelvis CT 05/21/2018. FINDINGS: There are few mildly dilated gas-filled loops of small bowel within the midabdomen. The colon is also gas filled and mildly distended. Large left- sided ventral hernia is again noted. Degenerative changes within the visualized spine. No renal calculi. No ureteral calculi. No pneumoperitoneum or pneumatosis. IMPRESSION: 1. No change in the mildly dilated loops of small bowel within the midabdomen consistent with the patient's history of a small bowel obstruction. However, there is persistent gas within the mildly distended large bowel. Therefore, this favors a partial small bowel obstruction. 2. Large left ventral hernia persists. _ (1) Bowel obstruction Intestinal obstruction extent: unspecified extent Intestinal obstruction type : unspecified Qualified Code(s): K56.609 - Unspecified intestinal obstruction, unspecified as to partial versus complete obstruction (2) Abdominal hernia Hernia type: other abdominal hernia Laterality: Obstruction and gangrene presence: with obstruction but without gangrene Recurrence: Qualified Code(s) : K45.0 - Other specified abdominal hernia with obstruction, without gangrene
[2018-05-24] MEDS ORDERED: hydrOXYzine HCL IM SOLN 50 MG/ML 1 ML VIAL IM STA (03:00)
[2018-05-24] MEDS: NSS + 20MEQ KCL 20 MEQ/1,000 ML BAG IV SCH (05:50)
[2018-05-24] MEDS: ACETAMINOPHEN 1,000 MG/100 ML VIAL IV SCH ×3 (05:50→22:39)
[2018-05-24] MEDS: HydrALAZINE HCL 20 MG/ML VIAL IV PRN ×2 (05:52→16:10)
--- NOTE | 2018-05-24 08:09 | Hospitalist Progress Note ---
Date of Service May 23, 2018 Assessment & Plan (1) Bowel obstruction: - CT supports a small bowel obstruction - has a H/O multiple abdominal surgeries and H/O diverticulitis in the past; Had a colostomy placed with ultimate reversal. 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 But by 2015, has noticed a bulge. This gradually worsened to the ventral hernia that she has today. - She has a chronic L non-reproducible hernia and has R sided reducible hernia which looks like the SBO transition point may be at this point - last BM was on Wednesday -However will switch patient to NPO on 05/23 -Patient does have multiple comorbidities, however, she did have a negative cardiac cath in the summer of 2017 - Patient is now interested in tertiary center but she was denied as she needs to try consevrative management first, they also state that they would not do reconstructive abdominal wall surgery emergently. -Gen surg will likely need to discuss case with [facility] for transfer. - Patient would prefer not to take Zosyn as her WBC is normal - at this time will hold on antibiotics - Pain control with Tylenol and Morphine PRN - Gen Surg following - appreciate input (2) CHF (congestive heart failure): - Patient has history of chronic systolic congestive heart failure. -Reports some SOB to surgery however did not express that during my visit - Echo (Jan 2018) - EF 40% with RCA/LAD territory wall motion abnormality - Caridiac cath done in 2018 which did not require PCI and estimated EF to be 40 -50% - Will monitor closely for signs of overload - surgery reduced IVF and ultimately if tolerating diet can removed additional IV hydration (3) Duodenal ulcer: - In Jan 2018 had a GI bleed requiring transfusion and transfer to [facility] with capsule study confirming duodenal ulcerations likely from NSAID use - Hgb remains stable and will monitor - Protonix 40 mg IV daily (4) Rheumatoid arthritis: - Holding Hydroxychloroquine and Prednisone until dietary intake confirmed - no signs of adrenal insufficiency at this time and will adjust pending monitoring (5) HTN (hypertension): - Having increased BPs likely some pain/anxiety contributing - did not want to take her BP medications today - Can continue Lisinopril 10 mg daily and Diltiazem 120 mg daily (6) Asthma: - Does not appear to be in an exacerbation at this time - Last PFTs (Feb 2018) - mild obstructive airway disease that is improved from 2017 - Symbicort 2 puffs BID and Albuterol nebulizer PRN (7) 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 Herring that patient should be transferred to tertiary center for repair given her multiple comorbidities. I examined patient and questioned her. She is tearful, she states that she is open to being transferred to [facility] for surgery. However, when I called transfer was denied as patient had not tried conservative management as of yet. The surgeon from [facility], Dr. Smith stated that abdominal reconsturction would not be done as an emergent procedure and if patient requires surgery to treat the bowel obstruction, it could be handled at our facility. I explained this to the General Surgical team, and suggested that they could call surgery at [facility] if patient they feel strongly that they will not be able to handle the procedure. Patient was informed. Patient states that she continues to have pain in her abd. with no flatulence or bowel movements. She had not been as nauseous this AM. Physical Exam 2 Vital Signs (Past 24 Hours): Last Vital Signs Temp 36.8 C 05/23/18 14:52 Pulse 67 05/23/18 14:52 Resp 22 05/23/18 14:52 BP 168/69 H 05/23/18 14:52 Pulse Ox 96 05/23/18 14:52 Physical Exam: Constitutional: well developed and well nourished; no acute distress and not ill appearing Eyes: chronic vertical movement of R eye mostly present with blinking ENMT: Throat: uvula midline Neck: trachea midline Respiratory: normal respiratory effort Auscultation: + diminished lung sounds Cardiovascular: Rate/Rhythm: regular rate and regular rhythm Gastrointestinal (Abdomen): Inspection/Auscultation: + abnormal bowel sounds (hypoactive but better bowel sounds in RLQ) Percussion/Palpation: + abdomen tender and abdomen soft large LLQ ventral hernia with RLQ smaller ventral hernia Musculoskeletal: Head/Neck/Chest: normocephalic and head atraumatic chronic finger/hand deformities with finger deviations related to RA Skin: no rashes, warm and dry Neurologic: moves all extremities Psychiatric: Orientation: alert and oriented x 3 Mood: + anxious mood. and tearful _ (1) Bowel obstruction Intestinal obstruction extent: unspecified extent Intestinal obstruction type : unspecified Qualified Code(s): K56.609 - Unspecified intestinal obstruction, unspecified as to partial versus complete obstruction
[2018-05-24 08:42] LABS: Basophils # (auto) 0.02 K/uL (0-0.2); Basophils % (auto) 0.2 %; Eosinophils # (auto) 0.05 K/uL (0-0.5); Eosinophils % (auto) 0.4 %; Hematocrit (blood only) 37.6 % (37-47); Hemoglobin 12.1 g/dL (12.0-16.0); Immature Granulocytes # (auto) 0.03 K/uL (0.00-0.02); Immature Granulocytes % (auto) 0.3 %; Lymphocytes # (auto) 1.29 K/uL (1.2-3.4); Lymphocytes % (auto) 11.3 %; Mean Corpuscular Hgb Conc 32.2 g/dL (32-36); Mean Corpuscular Volume 93.5 fL (80-100); Mean Platelet Volume 9.5 fL (7.4-10.4); Monocytes # (auto) 0.68 K/uL (0.11-0.59); Neutrophils # (auto) 9.35 K/uL (1.4-6.5); Neutrophils % (auto) 81.8 %; Platelet Count 359 K/uL (130-400); RDW Coefficient of Variation 14.4 % (11.5-14.5); RDW Standard Deviation 49.4 fL (36.4-46.3); Red Blood Count 4.02 M/uL (4.2-5.4); White Blood Count 11.42 K/uL (4.8-10.8)
[2018-05-24 08:56] LABS: INR 1.1 (0.9-1.1); Prothrombin Time 10.8 Seconds (9.0-12.0)
[2018-05-24 08:58] LABS: Albumin Level 3.2 gm/dl (3.4-5.0); BUN Creatinine Ratio 24.9 (10-20); Calcium 9.2 mg/dl (8.5-10.1); Est GFR (African American) 116.6; Est GFR (Non-African American) 100.6; Magnesium 1.7 mg/dl (1.8-2.4); Potassium 3.8 mmol/L (3.5-5.1)
[2018-05-24 09:01] LABS: Albumin Globulin Ratio 0.9 (0.9-2); Bilirubin,Total 0.6 mg/dl (0.2-1); Globulin 3.8 gm/dl (2.5-4.0)
--- NOTE | 2018-05-24 09:37 | Surgery Progress Note ---
Date of Service May 24, 2018 Assessment & Plan (1) Bowel obstruction: Likely secondary to incarcerated right ventral hernia which was reduced originally. Patient has large left ventral hernia containing large and small bowel (nonreducible at baseline, loss of musculature) Abdomen is soft, no peritonitis or rigidity. Lactic acid 0.8 yesterday am mild leukocytosis today Plan: Continue conservative measures for now: NGT to LIS, NPO (may have mouth swabs/ ice chips), IV pain management as needed (limit narcotics), IV Zofran as needed. Increase activity is possible, OOB to chair and ambulate with assistance Dulcolax suppoistory now Patient re-evaluated at 1:00 pm KUB today showing improvement of dilated small bowel and moderate amount of stool in colon and rectum. Per nurse she had a bowel movement but was rock hard and digital rectal exam with hard stool present. Will try fleet enema to loose hard stool, hopefully this will allow for further bowel function without stimulation Keep NGT for now (2) Abdominal hernia: Multiple ventral hernias with nonreducible large left sided hernia and smaller, incarcerated right sided hernia that was source of SBO. The right sided hernia was able to be reduced. Loss of abdominal wall musculature given size of hernias. Plan as above. (3) CHF (congestive heart failure): IVF decreased to 50 cc/hr, now currently on oxygen via nasal cannula (4) Urinary retention: straight cath ordered as needed decrease narcotics if possible Supervising Physician Co-Signing Physician Notes Dr. Carbone has seen and examined patient, agrees with above Subjective "I really have to pee, I would like to sit up and try on the bedside commode" She states she feels she has to urinate but unable to on her own. Was just bladder scanned by nurses aid. Abdominal pain last evening, required Dilaudid and IV Tylenol which helped Passed a lot of gas last night but none this morning, no bowel movement no nausea or vomiting Headache and dizziness when standing Physical Exam 2 Vital Signs (Past 24 Hours): Last Vital Signs Temp 36.6 C 05/24/18 07:00 Pulse 94 H 05/24/18 07:00 Resp 18 05/24/18 07:00 BP 178/72 H 05/24/18 07:00 Pulse Ox 94 05/24/18 07:00 Constitutional: WD/WN, vitals as above uncomfortable Neck: normal visual inspection Respiratory: normal respiratory effort; no respiratory distress Gastrointestinal (Abdomen): Inspection/Auscultation: abdomen not distended Percussion/Palpation: + abdomen tender, abdomen soft and + hernia (large left ventral hernia containing small and large bowel, right ventral hernia which is soft today, reducible, minimal discomfort); no guarding and abdomen not rigid pediatric NGT with dark brown output Skin: no rashes, warm and dry Psychiatric: A+Ox3, euthymic affect Affect: + flat affect Results & Data Laboratory Results 05/24/18 05/24/18 05/24/18 Range/Units 08:17 08:17 08:17 WBC 11.42 H (4.8-10.8) K/uL RBC 4.02 L (4.2-5.4) M/uL Hgb 12.1 (12.0-16.0) g/dL Hct 37.6 (37-47) % MCV 93.5 (80-100) fL MCH 30.1 (25-34) pg MCHC 32.2 (32-36) g/dL RDW Std Deviation 49.4 H (36.4-46.3) fL RDW Coeff of Chauncey 14.4 (11.5-14.5) % Plt Count 359 (130-400) K/uL MPV 9.5 (7.4-10.4) fL Immature Gran % (Auto) 0.3 % Neut % (Auto) 81.8 % Lymph % (Auto) 11.3 % Cannon % (Auto) 6.0 % Eos % (Auto) 0.4 % Baso % (Auto) 0.2 % Immature Gran # (Auto) 0.03 H (0.00-0.02) K/uL Neut # (Auto) 9.35 H (1.4-6.5) K/uL Lymph # (Auto) 1.29 (1.2-3.4) K/uL Cannon # (Auto) 0.68 H (0.11-0.59) K/uL Eos # (Auto) 0.05 (0-0.5) K/uL Baso # (Auto) 0.02 (0-0.2) K/uL PT 10.8 (9.0-12.0) Seconds INR 1.1 (0.9-1.1) Sodium 130 L (136-145) mmol/L Potassium 3.8 (3.5-5.1) mmol/L Chloride 96 L (98-107) mmol/L Carbon Dioxide 17 L (21-32) mmol/L Anion Gap 17.0 H (3-11) BUN 10 (7-18) mg/dl Creatinine 0.39 L (0.6-1.2) mg/dl Est Cr Clr Drug Dosing 94.0 ml/min Est GFR ( Amer) 116.6 Est GFR (Non-Af Amer) 100.6 BUN/Creatinine Ratio 24.9 H (10-20) Glucose 54 L (70-99) mg/dl Calcium 9.2 (8.5-10.1) mg/dl Magnesium 1.7 L (1.8-2.4) mg/dl Total Bilirubin 0.6 (0.2-1) mg/dl AST 17 (15-37) U/L ALT 17 (12-78) U/L Alkaline Phosphatase 64 (45-117) U/L Total Protein 7.0 (6.4-8.2) gm/dl Albumin 3.2 L (3.4-5.0) gm/dl Globulin 3.8 (2.5-4.0) gm/dl Albumin/Globulin Ratio 0.9 (0.9-2) Diagnostic Findings KUB CLINICAL HISTORY: Evaluate small bowel obstruction. COMPARISON STUDY: CT of the abdomen and pelvis May 21, 2018 and KUB May 22, 2018. FINDINGS: Tip of nasogastric tube projects over the proximal stomach. There is gas throughout the colon and rectum. Small bowel dilatation has improved. Left lower quadrant ventral hernia which contains bowel loops is noted. There is a moderate amount of stool within the colon and rectum. IMPRESSION: Interval improvement in small bowel dilatation although evaluation of the bowel is within the left lower quadrant hernia is difficult by radiography. _ (1) Bowel obstruction Intestinal obstruction extent: unspecified extent Intestinal obstruction type : unspecified Qualified Code(s): K56.609 - Unspecified intestinal obstruction, unspecified as to partial versus complete obstruction (2) Abdominal hernia Hernia type: other abdominal hernia Laterality: Obstruction and gangrene presence: with obstruction but without gangrene Recurrence: Qualified Code(s) : K45.0 - Other specified abdominal hernia with obstruction, without gangrene
[2018-05-24] MEDS: POLYETHYLENE (MIRALAX) 17 GM PACK PO SCH (10:06)
[2018-05-24] MEDS: BUDESONIDE/FORMOTEROL FUMARATE 160/4.5 60 PUFFS/INHALER INH SCH ×2 (10:08→22:39)
[2018-05-24] MEDS: PANTOprazole 40 MG in SYRINGE 0 ML IV SCH (10:11)
[2018-05-24] MEDS ORDERED: BISACODYL 10 MG SUPP PR STA (10:43)
[2018-05-24] MEDS ORDERED: ENALAPRILAT 0.625 MG in SYRINGE 9.5 ML IV SCH (10:45)
--- NOTE | 2018-05-24 11:21 | XRay Report ---
KUB CLINICAL HISTORY: Evaluate small bowel obstruction. COMPARISON STUDY: CT of the abdomen and pelvis May 21, 2018 and KUB May 22, 2018. FINDINGS: Tip of nasogastric tube projects over the proximal stomach. There is gas throughout the col on and rectum. Small bowel dilatation has improved. Left lower quadrant ventral hernia which contains bowel loops is noted. There is a moderate amount of stool within the colon and rectum. IMPRESSION: Interval improvement in small bowel dilatation although evaluation of the bowel is withi n the left lower quadrant hernia is difficult by radiography. Electronically signed by: Josh Flannery M.D. 05/24/2018 11:20 AM
[2018-05-24] MEDS: ENALAPRILAT 0.625 MG in DEXTROSE 5% 25 ML IV SCH ×2 (11:28→20:25)
[2018-05-24] MEDS ORDERED: SOD PHOSPHATE/SOD BIPHOSPHATE ENEMA 132 ML BTL PR STA (13:05)
[2018-05-24] MEDS: HYDROmorphone INJ 0.5 MG/0.5 ML SYR IV PRN (17:16)
--- NOTE | 2018-05-24 22:53 | Hospitalist Progress Note ---
Date of Service May 24, 2018 Assessment & Plan (1) Bowel obstruction: - CT supports a small bowel obstruction - has a H/O multiple abdominal surgeries and H/O diverticulitis in the past; Had a colostomy placed with ultimate reversal. 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 But by 2015, has noticed a bulge. This gradually worsened to the ventral hernia that she has today. - She has a chronic L non-reproducible hernia and has R sided reducible hernia which looks like the SBO transition point may be at this point Patient had a BM on Wednesday and now had one on 05/24. -Patient will remain NPO on NG tube suction. -Patient does have multiple comorbidities, however, she did have a negative cardiac cath in the summer of 2017 - Patient continues to be interested in tertiary center but she was denied as she needs to try consevrative management first, they also state that they would not do reconstructive abdominal wall surgery emergently. -Gen surg will likely need to discuss case with [facility] for transfer. - Patient would prefer not to take Zosyn as her WBC is normal - at this time will hold on antibiotics - Pain control with Tylenol and Morphine PRN - Gen Surg following - appreciate input Trasferrd patient to PACU for IV antihypertensive meds. (2) CHF (congestive heart failure): - Patient has history of chronic systolic congestive heart failure. -Reports some SOB to surgery however did not express that during my visit - Echo (Jan 2018) - EF 40% with RCA/LAD territory wall motion abnormality - Caridiac cath done in 2018 which did not require PCI and estimated EF to be 40 -50% - Will monitor closely for signs of overload - surgery reduced IVF and ultimately if tolerating diet can removed additional IV hydration Resumed darryl inhibitor. May switch patient to beta mar. For now will hold calcium mar. Transferred patient to PACU, PREMATURE ATRIAL Contractions noted on monitor. Will monitor. (3) Duodenal ulcer: - In Jan 2018 had a GI bleed requiring transfusion and transfer to [facility] with capsule study confirming duodenal ulcerations likely from NSAID use - Hgb remains stable and will monitor - Protonix 40 mg IV daily (4) Rheumatoid arthritis: - Holding Hydroxychloroquine and Prednisone until dietary intake confirmed - no signs of adrenal insufficiency at this time and will adjust pending monitoring (5) HTN (hypertension): - Having increased BPs likely some pain/anxiety contributing - did not want to take her BP medications today - Can continue Lisinopril 10 mg daily and Diltiazem 120 mg daily (6) Asthma: - Does not appear to be in an exacerbation at this time - Last PFTs (Feb 2018) - mild obstructive airway disease that is improved from 2017 - Symbicort 2 puffs BID and Albuterol nebulizer PRN (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 Answered all of the patient questions. Subjective 77 yo female appears to be very anxious as per nursing staff. She has multiple complaints, which are intermittent and changed throughout the day. She complained of abdominal pain, back pain, arm pain. She does not like being stuck with IV. She also complains of the room temperature, and has changed the temperature warmer and colder throughout the day. She did have a large BM today. This was after medicine. She states the BM was very hard. All of her questions were answered. Nurse also brings up that patient is having palpitations. Constitutional: + fatigue; no fever, no chills and no anorexia Gastrointestinal: + abdominal pain and + constipation; no nausea, no vomiting and no diarrhea/loose stools Physical Exam 2 Vital Signs (Past 24 Hours): Last Vital Signs Temp 36.8 C 05/24/18 19:18 Pulse 107 H 05/24/18 19:18 Resp 20 05/24/18 19:18 BP 135/61 05/24/18 19:18 Pulse Ox 91 05/24/18 19:18 Physical Exam: Constitutional: well developed and well nourished; no acute distress and not ill appearing Eyes: chronic vertical movement of R eye mostly present with blinking ENMT: Throat: uvula midline Neck: trachea midline Respiratory: normal respiratory effort Auscultation: + diminished lung sounds Cardiovascular: Rate/Rhythm: regular rate and regular rhythm Gastrointestinal (Abdomen): Inspection/Auscultation: + abnormal bowel sounds ( hypoactive but better bowel sounds in RLQ) Percussion/Palpation: + decreased abdomen tenderness in LLQ and abdomen soft large LLQ ventral hernia with RLQ smaller ventral hernia Musculoskeletal: Head/Neck/Chest: normocephalic and head atraumatic chronic finger/hand deformities with finger deviations related to RA Skin: no rashes, warm and dry Neurologic: moves all extremities Psychiatric: Orientation: alert and oriented x 3 Mood: + anxious mood. No longer tearful. _ (1) Bowel obstruction Intestinal obstruction extent: unspecified extent Intestinal obstruction type : unspecified Qualified Code(s): K56.609 - Unspecified intestinal obstruction, unspecified as to partial versus complete obstruction
[2018-05-25] MEDS: NSS + 20MEQ KCL 20 MEQ/1,000 ML BAG IV SCH (02:45)
[2018-05-25] MEDS: ENALAPRILAT 0.625 MG in DEXTROSE 5% 25 ML IV SCH ×3 (02:45→19:11)
[2018-05-25] MEDS: HYDROmorphone INJ 0.5 MG/0.5 ML SYR IV PRN ×2 (03:44→20:51)
[2018-05-25] MEDS: ACETAMINOPHEN 1,000 MG/100 ML VIAL IV SCH ×2 (06:43→13:36)
[2018-05-25] MEDS: POLYETHYLENE (MIRALAX) 17 GM PACK PO SCH (08:14)
[2018-05-25] MEDS: BUDESONIDE/FORMOTEROL FUMARATE 160/4.5 60 PUFFS/INHALER INH SCH ×2 (08:14→19:12)
[2018-05-25 08:51] LABS: Basophils # (auto) 0.05 K/uL (0-0.2); Basophils % (auto) 0.5 %; Eosinophils # (auto) 0.19 K/uL (0-0.5); Eosinophils % (auto) 1.9 %; Hematocrit (blood only) 36.3 % (37-47); Hemoglobin 12.2 g/dL (12.0-16.0); Immature Granulocytes # (auto) 0.03 K/uL (0.00-0.02); Immature Granulocytes % (auto) 0.3 %; Lymphocytes # (auto) 1.44 K/uL (1.2-3.4); Lymphocytes % (auto) 14.7 %; Mean Corpuscular Hgb Conc 33.6 g/dL (32-36); Mean Corpuscular Volume 93.1 fL (80-100); Monocytes % (auto) 10.2 %; Neutrophils # (auto) 7.07 K/uL (1.4-6.5); Neutrophils % (auto) 72.4 %; Platelet Count 342 K/uL (130-400); RDW Coefficient of Variation 14.6 % (11.5-14.5); RDW Standard Deviation 49.4 fL (36.4-46.3); White Blood Count 9.78 K/uL (4.8-10.8)
--- NOTE | 2018-05-25 09:03 | XRay Report ---
XR chest 1V portable CLINICAL HISTORY: rhonci dyspnea COMPARISON STUDY: 05/22/2018 FINDINGS: Unchanging mild cardiomegaly. Slightly improved basilar atelectatic change. Mid and upper l ungs are clear. There is a component of emphysematous change. There is nasogastric tube within the st omach. IMPRESSION: 1. Nasogastric tube within the stomach. 2. Stable emphysematous change. 3. Mild bibasilar atelectatic change stable to slightly improved. The above report was generated using voice recognition software. It may contain grammatical, syntax or spelling errors. Electronically signed by: Emiliano Bolden M.D. 05/25/2018 9:02 AM
[2018-05-25 09:28] LABS: BUN Creatinine Ratio 26.5 (10-20); Creatinine Clr Calc Pharmacy 67.9 ml/min; Est GFR (African American) 104.8; Est GFR (Non-African American) 90.4; Potassium 3.6 mmol/L (3.5-5.1)
[2018-05-25] MEDS ORDERED: DEXTROSE 50% 50 ML SYRINGE IV STA (10:01)
[2018-05-25] MEDS ORDERED: DEXTROSE 50% 50 ML SYRINGE IV ONE ×2 (10:07→19:15)
[2018-05-25] MEDS: PANTOprazole 40 MG in SYRINGE 0 ML IV SCH (10:20)
--- NOTE | 2018-05-25 12:07 | Surgery Progress Note ---
Date of Service May 25, 2018 Assessment & Plan (1) Bowel obstruction: Likely secondary to incarcerated right ventral hernia which was reduced. Patient has large left ventral hernia containing large and small bowel ( nonreducible at baseline, loss of musculature) Abdomen is soft, no peritonitis or rigidity. Leukocytosis resolved KUB 05/24/2018 showing moderate formed stool in rectum and colon. She had 5 rock hard bowel movements after suppository and enema yesterday Plan: Patient has had + bowel function however only with stimulation with suppository and fleet enema. She was nauseated yesterday with NGT clamped upon transfer to telemetery floor. She is not having abdominal pain but tender when pressed upon. Dr. Carbone recommended removing NGT, starting clear diet, another fleet enema, and PO Miralax to help with constipation. Patient is reluctant for this approach as she states that she is concerned this is going to happen again and she would like to have surgical repair. Understands she is at high risk given her age, comorbidities including CHF. She states she would like to be transferred to [facility] at this time. Our services originally recommended transfer to tertiary center but patient initially declined and then transfer was rejected in order to try conservative measures. At this time, she has not had significant improvement with conservative measures and would recommend transfer to [facility] for surgical intervention given her high risk, cardiac comorbidities, and complex ventral hernias which will require complex abdominal repair. Dr. Carbone discussed his recommendation with Dr. Philippe, plan is to try transfer to [facility] again today. Would continue NGT to [facility] for now NPO Pain management as needed OOB to chair and ambulate if possible (2) Abdominal hernia: Multiple ventral hernias with nonreducible large left sided hernia and smaller, incarcerated right sided hernia that was source of SBO. The right sided hernia was able to be reduced. Loss of abdominal wall musculature given size of left ventral hernia Plan as above (3) Urinary retention: resolved able to urinate on her own Supervising Physician Co-Signing Physician Notes Dr. Carbone has seen and examined patient, agrees with above Subjective no bowel movement since yesterday after enema feeling better this morning but wants to know what the end plan is. States she is tired of lying here and nothing seems to be getting better Chronic constipation and due to large left hernia she is always taking stool softeners and laxatives in order to have bowel movement. States she would like to have surgical repair so she doesn't have to go through this again. Understands she is at high risk for surgical intervention given her medical history and heart disease but "I also do want to live this way" Physical Exam 2 Vital Signs (Past 24 Hours): Last Vital Signs Temp 36.9 C 05/25/18 10:27 Pulse 75 05/25/18 10:27 Resp 16 05/25/18 10:27 BP 170/67 H 05/25/18 10:27 Pulse Ox 93 05/25/18 10:27 Constitutional: WD/WN, vitals as above no acute distress Neck: normal visual inspection Respiratory: normal respiratory effort; no respiratory distress, no labored breathing, no retractions and does not use accessory muscles Gastrointestinal (Abdomen): Inspection/Auscultation: abdomen not distended Percussion/Palpation: + abdomen tender (at right ventral hernia site on deep palpation), abdomen soft and + hernia (large left ventral hernia containing small and large bowel, right ventral hernia which is soft today, reducible); no guarding and abdomen not rigid Skin: no rashes, warm and dry Psychiatric: A+Ox3, euthymic affect Affect: + flat affect _ (1) Bowel obstruction Intestinal obstruction extent: unspecified extent Intestinal obstruction type : unspecified Qualified Code(s): K56.609 - Unspecified intestinal obstruction, unspecified as to partial versus complete obstruction (2) Abdominal hernia Hernia type: other abdominal hernia Laterality: Obstruction and gangrene presence: with obstruction but without gangrene Recurrence: Qualified Code(s) : K45.0 - Other specified abdominal hernia with obstruction, without gangrene
[2018-05-25] MEDS ORDERED: METOPROLOL TARTRATE 1 MG/ML VIAL IV SCH (18:00)
--- NOTE | 2018-05-25 18:27 | XRay Report ---
KUB HISTORY: Small bowel obstruction. Follow-up. COMPARISON: KUB 05/24/2018. FINDINGS: Nasogastric tube terminates in the proximal stomach. Multiple ventral hernias are again not ed. Multiple mildly dilated gas-filled loops of small bowel remain unchanged. There is gas and stool seen throughout the nondistended colon. No renal calculi. No ureteral calculi. No pneumoperitoneum o r pneumatosis. IMPRESSION: 1. No significant change in the mildly dilated gas-filled loops of small bowel seen throughout the ab domen consistent with the small bowel obstruction.. 2. The ventral hernias are again noted. 3. Nasogastric tube terminates in the proximal stomach. Electronically signed by: Stanford Cuadra M.D. 05/25/2018 6:26 PM
--- NOTE | 2018-06-01 07:52 | Discharge Summary ---
Date of Service May 25, 2018 Admission HPI Per Admitting Provider The patient is a 77-year-old female with a past medical history including previous bowel obstructions with colostomy and then reversal, recent admission in January 2018, during which EGD showed a large volume of abdominal bleeding of unclear etiology, probably small intestine. She developed worsening abdominal discomfort over the past 24 hours, presented to the ED for assessment , and CT scan of abdomen pelvis was consistent with recurrent bowel obstruction. Patient was offered by ED and surgery on-call to be transferred to tertiary care center, but she reports that she has been told in the past that she has not a good surgical candidate, and thus preferred to stay at [facility]. Principal Diagnosis Small Bowel Obstruction Discharge Exam Constitutional: well developed and well nourished; no acute distress and not ill appearing Eyes: chronic vertical movement of R eye mostly present with blinking ENMT: Throat: uvula midline Neck: trachea midline Respiratory: normal respiratory effort Auscultation: + diminished lung sounds Cardiovascular: Rate/Rhythm: regular rate and regular rhythm Gastrointestinal (Abdomen): Inspection/Auscultation: + abnormal bowel sounds ( hypoactive but better bowel sounds in RLQ) Percussion/Palpation: + decreased abdomen tenderness in LLQ and abdomen soft large LLQ ventral hernia with RLQ smaller ventral hernia Musculoskeletal: Head/Neck/Chest: normocephalic and head atraumatic chronic finger/hand deformities with finger deviations related to RA Skin: no rashes, warm and dry Neurologic: moves all extremities Psychiatric: Orientation: alert and oriented x 3 Mood: + anxious mood. No longer tearful. Discharge Data Allergies Allergy/AdvReac Type Severity Reaction Status Date / Time codeine Allergy Mild DIZZINESS Verified 05/11/18 13:32 latex Allergy Mild RASH Verified 05/11/18 13:32 moxifloxacin Allergy Mild PAIN IN Verified 05/11/18 13:32 HEEL nickel Allergy Mild RASH ON Verified 05/11/18 13:32 EARS WITH EARRINGS WITH NICKEL Sulfa (Sulfonamide Allergy Mild Rash Verified 05/11/18 13:32 Antibiotics) banana Allergy Unknown RASH Verified 05/11/18 13:32 Cipro Allergy Unknown PASSED Verified 11/16/17 08:18 OUT, SEVERE RXN PER PATIENT ciprofloxacin Allergy Unknown PASSED Verified 05/11/18 13:32 OUT, SEVERE RXN PER PATIENT nut - unspecified Allergy Unknown HIVES Verified 05/11/18 13:32 fluconazole AdvReac Intermediate TACHYCARDIA, Verified 05/11/18 13:32 HAIR LOSS adhesive AdvReac Mild CONTACT Verified 05/11/18 13:32 DERMATITIS Consultations 05/22/18 00:09 Consult General Surgery Stat ED Decision to Admit Stat 05/22/18 02:43 Consult Case Management - Discharge Planning Routine 05/25/18 17:45 Burn CD for patient Stat Ordered Studies 05/21/18 22:11 CT abd pelvis IV con only Urgent Hospital Course (1) Bowel obstruction: - CT supports a small bowel obstruction - has a H/O multiple abdominal surgeries and H/O diverticulitis in the past; Had a colostomy placed with ultimate reversal. 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 But by 2015, has noticed a bulge. This gradually worsened to the ventral hernia that she has today. - She has a chronic L non-reproducible hernia and has R sided reducible hernia which looks like the SBO transition point may be at this point Patient had a BM on Wednesday and now had one on 05/24. -Patient will remain NPO on NG tube suction. -Patient does have multiple comorbidities, however, she did have a negative cardiac cath in the summer of 2017 - Patient continues to be interested in tertiary center but she was denied as she needs to try consevrative management first, they also state that they would not do reconstructive abdominal wall surgery emergently. -Gen surg will likely need to discuss case with [facility] [place]. - Patient would prefer not to take Zosyn as her WBC is normal - at this time will hold on antibiotics - Pain control with Tylenol and Morphine PRN - Gen Surg following - appreciate input Trasferrd patient to PACU for IV antihypertensive meds. On day of discharge: no bowel movement. Pain was worsening. DIsucssed with surgeon at [facility]. Accepted patient. patient will be transferred overnight. Explained to patient who the transferring provider was, she states that she wanted me to inform her PCP. This was done. Patient agrees to transfer. (2) CHF (congestive heart failure): - Patient has history of chronic systolic congestive heart failure. -Reports some SOB to surgery however did not express that during my visit - Echo (Jan 2018) - EF 40% with RCA/LAD territory wall motion abnormality - Caridiac cath done in 2018 which did not require PCI and estimated EF to be 40 -50% - Will monitor closely for signs of overload - surgery reduced IVF and ultimately if tolerating diet can removed additional IV hydration Resumed darryl inhibitor. May switch patient to beta mar. For now will hold calcium mar. Transferred patient to PACU, PREMATURE ATRIAL Contractions noted on monitor ( transfer was done on 05/23). Will monitor. (3) Duodenal ulcer: - In Jan 2018 had a GI bleed requiring transfusion and transfer to [facility] with capsule study confirming duodenal ulcerations likely from NSAID use - Hgb remains stable and will monitor - Protonix 40 mg IV daily (4) Rheumatoid arthritis: - Holding Hydroxychloroquine and Prednisone until dietary intake confirmed - no signs of adrenal insufficiency at this time and will adjust pending monitoring (5) HTN (hypertension): - Having increased BPs likely some pain/anxiety contributing - did not want to take her BP medications today - Can continue Lisinopril 10 mg daily and Diltiazem 120 mg daily (6) Asthma: - Does not appear to be in an exacerbation at this time - Last PFTs (Feb 2018) - mild obstructive airway disease that is improved from 2017 - Symbicort 2 puffs BID and Albuterol nebulizer PRN (7) 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 - has chronic abnormal ocular movements - mostly of vertical movement of R eye with blinking Total Time Total Time Spent Total Time Spent (In Minutes): 35 Total Time Includes: Examination of the Patient, Discharge Planning and Medication Reconciliation Discharge Plan Discharge Items Patient Disposition: Transfer Acute Care Hospital Reason For Visit: BOWEL OBSTRUCTION Discharge Diagnosis: Bowel Obstruction/ Incarcerated Hernia Condition: Fair Discharge Goals: Decrease discomfort Activity: As commented below Activity Comment: Bedridden Non-emergency contact: Primary Care Provider Call non-emergency contact if: you have any medication questions Diet: See below Diet Comment: NPO Addtl Provider Instructions: Transferred to [facility] Prescriptions: New ipratropium-albuterol 0.5 mg-3 mg(2.5 mg base)/3 mL Solution For Nebulization 3 ml NEB Q2H PRN (Reason: SOB) Qty: 0 RF: 0 polyethylene glycol 3350 [Miralax] 17 gram Powder In Packet 17 g PO DAILY PRN (Reason: Constipation) Qty: 10 RF: 0 hydralazine 20 mg/mL Solution 10 mg IV Q6H PRN (Reason: Dyspnea) Qty: 100 RF: 0 metoprolol tartrate 5 mg/5 mL Solution 5 mg IV Q6 Qty: 0 RF: 0 ondansetron HCl (PF) 4 mg/2 mL Solution 4 mg IV Q6H PRN (Reason: nausea) Qty: 0 RF: 0 budesonide-formoterol [Symbicort] 160-4.5 mcg/actuation Hfa Aerosol Inhaler 2 puff Inhalation BID Qty: 15 RF: 0 morphine 2 mg/mL Syringe 2 mg IV Q3H PRN (Reason: Abdominal Pain) Qty: 0 RF: 0 Continue budesonide-formoterol [Symbicort] 160-4.5 mcg/actuation Hfa Aerosol Inhaler 2 puff INHALATION BID RF: 0 Discontinued diltiazem HCl 120 mg Tablet Extended Release 24 Hr 120 mg PO DAILY RF: 0 lisinopril 10 mg tablet 10 mg PO DAILY RF: 0 aspirin [Aspirin Low Dose] 81 mg Tablet,Delayed Release (Dr/Ec) 1 tab PO QPM RF: 0 tramadol 50 mg Tablet 50 mg PO Q6H PRN (Reason: Pain) RF: 0 acetaminophen [Tylenol Arthritis Pain] 650 mg Tablet Extended Release 650 mg PO Q8H PRN (Reason: Pain) RF: 0 calcium carbonate [Calcium 500] 500 mg calcium (1,250 mg) Tablet 500 mg PO DAILY RF: 0 prednisone 1 mg Tablet 3 mg PO QAM RF: 0 pantoprazole [Protonix] 40 mg Tablet,Delayed Release (Dr/Ec) 40 mg PO DAILY PRN (Reason: Gi Upset) RF: 0 hydroxychloroquine 200 mg Tablet 200 mg PO QAM RF: 0 cholecalciferol (vitamin D3) [Vitamin D3] 5,000 unit Tablet 5,000 unit PO DAILY RF: 0 magnesium oxide 400 mg Capsule 400 mg PO DAILY RF: 0 Stand-Alone Forms: [facility] Discharge Orders: Discharge Order (Routine); Ordered 05/25/18 Ordered By: Gabino Philippe Admission Data Admit Date/Time: 05/22/18 02:01 Attending Provider: Gabino Philippe Admit Provider: Liu Perkins Primary Care Provider: Michael Herring Other Providers: Laura Aaron ; Liu Perkins Service: Telemetry Other Interventions: Discharge Summary Assessment (RN) Last Done: 05/25/18 22:35 DC Date/Time DO NOT enter until pt leaves facility: 05/25/18 21:30
== END 2018-05-25 21:30 | disposition short-term general hospital (02) | DRG 394 ==
LOC: ED 21:47 → 3W 05-22 02:01 → SUATTDRO 05-22 02:01 → 3W 05-22 02:16 → 2S 05-24 14:00
DX: K43.6 Other and unspecified ventral hernia with obstruction, without gangrene; K26.9 Duodenal ulcer, unspecified as acute or chronic, without hemorrhage or perforation; Z86.73 Personal history of transient ischemic attack (TIA), and cerebral infarction without residual deficits; Z79.82 Long term (current) use of aspirin; Z88.5 Allergy status to narcotic agent; Z91.040 Latex allergy status; I49.1 Atrial premature depolarization; I51.89 Other ill-defined heart diseases; J45.909 Unspecified asthma, uncomplicated; M06.9 Rheumatoid arthritis, unspecified; Z88.1 Allergy status to other antibiotic agents; I50.22 Chronic systolic (congestive) heart failure; Z88.2 Allergy status to sulfonamides

== ENCOUNTER 2018-07-13 07:56 | Inpatient (IN) ==
--- NOTE | 2018-06-27 10:46 | PAT Medication Instructions ---
Medication Instructions Date of Service June 27, 2018 Home Medications Medication Instructions Recorded budesonide-formoterol [Symbicort] 2 puff INHALATION BID #15 g 05/25/18 ipratropium-albuterol 3 ml NEB Q2H PRN #0 ml 05/25/18 ondansetron HCl (PF) 4 mg IV Q6H PRN #0 ml 05/25/18 budesonide-formoterol [Symbicort] 2 puff INHALATION BID ipratropium-albuterol 3 ml NEB Q2H PRN aspirin [Aspir-81] 81 mg PO QPM cholecalciferol (vitamin D3) 500 unit PO QPM hydroxychloroquine [Plaquenil] 200 mg PO QAM lisinopril 10 mg PO QAM magnesium oxide 400 mg PO QPM metoprolol tartrate 12.5 mg PO BID omega 4-llx-mfc-fish oil [Fish Oil] 1 cap PO QPM polyethylene glycol 3350 [Miralax] 17 g PO QAM prednisone 3 mg PO QAM ASK your prescriber and surgeon hydroxychloroquine [Plaquenil] 200 mg PO QAM STOP taking 2 weeks before surgery omega 0-jdx-evh-fish oil [Fish Oil] 1 cap PO QPM DO NOT take the morning of surgery polyethylene glycol 3350 [Miralax] 17 g PO QAM lisinopril 10 mg PO QAM Take morning of surgery With a small sip of water, OTHERWISE NOTHING TO EAT OR DRINK AFTER MIDNIGHT: prednisone 3 mg PO QAM metoprolol tartrate 12.5 mg PO BID budesonide-formoterol [Symbicort] 2 puff INHALATION BID ipratropium-albuterol 3 ml NEB Q2H PRN Take evening before surgery metoprolol tartrate 12.5 mg PO BID magnesium oxide 400 mg PO QPM aspirin [Aspir-81] 81 mg PO QPM cholecalciferol (vitamin D3) 500 unit PO QPM budesonide-formoterol [Symbicort] 2 puff INHALATION BID ipratropium-albuterol 3 ml NEB Q2H PRN Insulin Dependent Diabetic Patients * Test your blood sugar the morning of surgery * If Blood Sugar is GREATER THAN 150, take HALF of your regular dose of: * If Blood Sugar is LESS THAN 150, DO NOT TAKE ANY: Other Notes If you have any questions please call us at [phone] or [phone] or [phone] or [phone]
--- NOTE | 2018-06-27 12:14 | Anesthesiology Consultation ---
Date of Service June 27, 2018 Assessment & Plan (1) Encounter for pre-operative examination: Chart Review Chart Review: Acceptable Risk for Surgery and Patient seen in Pre Admission Testing Consults Requested medical (Dr. Herring (06/23)) Per PCP note from 06/23 visit, "No contraindication to that surgery". Teaching & Discussion Pre-Anesthesia Teaching/Discussion Notes: Instructed NPO after midnight before surgery, except medications with 15 cc of water. Medication instructions provided according to the PAT guidelines. History Surgery Operation Date: 07/13/18 11:10 Proposed Procedures p Right Total Knee Arthroplasty - Jad Cornell MD Height/Weight Height: 5 ft 2 in Weight: 52.3 kg Allergies Allergy/AdvReac Type Severity Reaction Status Date / Time codeine Allergy Mild DIZZINESS Verified 06/21/18 08:13 latex Allergy Mild RASH Verified 06/21/18 08:13 moxifloxacin Allergy Mild PAIN IN Verified 06/21/18 08:13 HEEL nickel Allergy Mild RASH ON Verified 06/21/18 08:13 EARS WITH EARRINGS WITH NICKEL Sulfa (Sulfonamide Allergy Mild Rash Verified 06/21/18 08:13 Antibiotics) banana Allergy Unknown RASH Verified 06/21/18 08:13 Cipro Allergy Unknown PASSED Verified 11/16/17 08:18 OUT, SEVERE RXN PER PATIENT ciprofloxacin Allergy Unknown PASSED Verified 06/21/18 08:13 OUT, SEVERE RXN PER PATIENT nut - unspecified Allergy Unknown HIVES Verified 06/21/18 08:13 fluconazole AdvReac Intermediate TACHYCARDIA, Verified 06/21/18 08:13 HAIR LOSS adhesive AdvReac Mild CONTACT Verified 06/21/18 08:13 DERMATITIS Medications Home Medications Medication Instructions Recorded Confirmed Last Taken budesonide-formoterol [Symbicort] 2 puff INHALATION BID #15 g 05/25/18 06/21/18 Unknown ipratropium-albuterol 3 ml NEB Q2H PRN #0 ml 05/25/18 06/21/18 Unknown ondansetron HCl (PF) 4 mg IV Q6H PRN #0 ml 05/25/18 06/21/18 Unknown aspirin [Aspir-81] 81 mg PO QPM 06/21/18 06/21/18 Unknown cholecalciferol (vitamin D3) 500 unit PO QPM 06/21/18 06/21/18 Unknown [Vitamin D3] hydroxychloroquine [Plaquenil] 200 mg PO QAM 06/21/18 06/21/18 Unknown lisinopril 10 mg PO QAM 06/21/18 06/21/18 Unknown magnesium oxide 400 mg PO QPM 06/21/18 06/21/18 Unknown metoprolol tartrate 12.5 mg PO BID 06/21/18 06/21/18 Unknown omega 8-vdb-kzm-fish oil [Fish Oil] 1 cap PO QPM 06/21/18 06/21/18 Unknown polyethylene glycol 3350 [Miralax] 17 g PO QAM 06/21/18 06/21/18 Unknown prednisone 3 mg PO QAM 06/21/18 06/21/18 Unknown Past Medical History Medical History Rheumatoid arthritis (Chronic) 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 Stroke like symptoms. Hx of diverticulitis of colon Hx of lower gastrointestinal bleeding Hx of congestive heart failure HTN (hypertension) (Chronic) Asthma (Chronic) Past Surgical History Surgical History History of colostomy (Acute) History of colostomy reversal (Acute) ETT#7, Glidescope #3, Grade 1 View - attempt x 1, atraumatic Hx of right heart catheterization 2017 [facility] History of tonsillectomy Status post right foot surgery 2012 AT [facility] Past Anesthesia History No Hx of Anesthesia Complications and No Family Hx of Anesthesia Complications History of PONV No Motion Sickness Screening History of Motion Sickness: Yes Social History Smoking Status: Former smoker tobacco type: cigarettes Do You Dip or Chew Tobacco: No Smoking End Date: 20 YR AGO. Smoked 1/2 - 1 ppd x 30 years. Hx Alcohol Use: Yes (RARELY) alcohol intake frequency: holidays/special occasions only Hx Substance Use: No substance use type: does not use Exercise / Class Metabolic Activity II 4-5 Yardwork/Stairs/Walk up hill (Walks around with walker. Unable to walk up FOS. Denies CP. Will get SOB if walking up hill. ) Review of Systems Patient denies chest pain, shortness of breath, reflux, cough, palpitations. +JIMÉNEZ (when walking up hills) +Joint pain (knees, hands, wrists, shoulders) + wheezing (relieved with inhalers - secondary to asthma) Physical Exam Vital Signs BP: 136/86 P: 72 R: 16 T: 98.3 SPO2: 96% on RA ENMT Thyromental Distance: > or= 3.5 Finger Breadths (3) Mallampati Class: III Neck normal visual inspection, trachea midline and + limited neck extension Respiratory normal respiratory effort Auscultation: lungs clear to auscultation bilaterally Cardiovascular Rate/Rhythm: regular rate and regular rhythm Heart Sounds: no murmur Vessels: no carotid bruit Neurologic moves all extremities Psychiatric Orientation: alert and oriented x 3 Testing Electrocardiogram Date: 05/24/18 Findings: + no change from (05/22/18) Sinus rhythm @ 92 with intermittent LBBB Chest X-Ray Date: 05/25/18 FINDINGS: Unchanging mild cardiomegaly. Slightly improved basilar atelectatic change. Mid and upper lungs are clear. There is a component of emphysematous change. There is nasogastric tube within the stomach. IMPRESSION: 1. Nasogastric tube within the stomach. 2. Stable emphysematous change. Echocardiogram Date: 06/16/16 EF: 60-65% RWMA: + none Other Findings: + LVH (mild) and + diastolic dysfunction (Grade 1) -- Conclusions -- Left ventricular systolic function is normal. No regional wall motion abnormalities noted. Ejection Fraction = 60-65%. There is mild concentric left ventricular hypertrophy. Grade I diastolic dysfunction, (abnormal relaxation pattern). There is mild tricuspid regurgitation. Cardiac Catheterization Date: 11/25/17 Findings: + normal Summary: 1. Essentially normal coronary arteries 2. Normal intracardiac filling pressure 3. Low normal LV function Recommendations: Continued ASCVD risk factor modification No high-risk findings to delay planned non-cardiac surgery. Cervical Spine Date: 06/27/18 IMPRESSION: 1. Advanced multilevel degenerative change 2. No evidence of instability on flexion or extension Laboratory Results Blood Type O Positive 06/27/18 12:41 Antibody Screen NEGATIVE 06/27/18 12:41 PT 10.4 Seconds (9.0-12.0) 06/27/18 12:50 INR 1.0 (0.9-1.1) 06/27/18 12:50 APTT 30.1 Seconds (21.0-31.0) 06/27/18 12:50 Urine Color Yellow 06/27/18 12:06 Urine Appearance Clear (Clear) 06/27/18 12:06 Urine pH 7.5 (4.5-7.5) 06/27/18 12:06 Ur Specific Willard 1.014 (1.000-1.030) 06/27/18 12:06 Urine Protein 2+ (Negative) H 06/27/18 12:06 Urine Glucose (UA) Negative (Negative) 06/27/18 12:06 Urine Ketones Negative (Negative) 06/27/18 12:06 Urine Nitrite Negative (Negative) 06/27/18 12:06 Ur Leukocyte Esterase Negative (Negative) 06/27/18 12:06 Urine WBC (Auto) 1-5 /hpf (0-5) 06/27/18 12:06 Urine RBC (Auto) 0-4 /hpf (0-4) 06/27/18 12:06 U Hyaline Cast (Auto) 0 /lpf (0-5) 06/27/18 12:06 U Epithel Cells (Auto) 5-10 /lpf (0-5) H 06/27/18 12:06 Urine Bacteria (Auto) Negative (Negative) 06/27/18 12:06 06/27/18 12:06 Urine Culture - Preliminary Urine,Clean Catch Pin-point growth present, reincubating. Laboratory Tests 05/25/18 05/25/18 05/25/18 08:35 08:35 20:19 WBC 9.78 Hgb 12.2 Hct 36.3 L Plt Count 342 PT INR APTT Sodium 136 Potassium 3.6 Chloride 102 Carbon Dioxide 20 L BUN 14 Creatinine 0.54 L POC Glucose 79 Blood Type Antibody Screen 06/27/18 06/27/18 12:41 12:50 WBC Hgb Hct Plt Count PT 10.4 INR 1.0 APTT 30.1 Sodium Potassium Chloride Carbon Dioxide BUN Creatinine POC Glucose Blood Type O Positive Antibody Screen NEGATIVE
--- NOTE | 2018-06-27 13:25 | XRay Report ---
LATERAL VIEW THE CERVICAL SPINE 3 VIEWS IN FLEXION AND EXTENSION CLINICAL HISTORY: Preoperative testing. Rheumatoid arthritis. COMPARISON STUDY: 11/22/2017 FINDINGS: There are advanced multilevel degenerative changes. There is no evidence for instability on flexion or extension. No fractures are visualized. IMPRESSION: 1. Advanced multilevel degenerative change 2. No evidence of instability on flexion or extension Electronically signed by: Jerry Hudson M.D. 06/27/2018 1:24 PM
[2018-06-27 13:29] LABS: Appearance Urine Clear (Clear); Bacteria Urine Automated Negative (Negative); Bilirubin Urine Negative (Negative); Blood Urine Trace (Negative); Cast Urine Automated 0 /lpf (0-5); Color Urine Yellow; Glucose Urine UA Negative (Negative); Ketones Urine Negative (Negative); Leukocyte Esterase Urine Negative (Negative); Nitrite Urine Negative (Negative); RBC Urine Automated 0-4 /hpf (0-4); Specific Gravity Urine 1.014 (1.000-1.030); Urobilinogen Urine Negative (Negative); pH Urine 7.5 (4.5-7.5)
[2018-06-27 13:31] LABS: Protein Urine 2+ (Negative)
[2018-06-27 13:44] LABS: Partial Thromboplastin Ratio 1.2; Partial Thromboplastin Time 30.1 Seconds (21.0-31.0); Prothrombin Time 10.4 Seconds (9.0-12.0)
--- NOTE | 2018-06-29 12:34 | History and Physical Report ---
DATE OF ADMISSION: 07/13/2018 CHIEF COMPLAINT: Right knee DJD/RA. HISTORY OF PRESENT ILLNESS: This 77-year-old white female presents to the office for her preoperative history and physical. She is scheduled to undergo a right knee total knee arthroplasty on 07/13/2018. She has a longstanding history of degenerative joint disease and rheumatoid arthritis. She previously was scheduled for right total knee arthroplasty multiple times. She has had to cancel due to various health conditions and anxiety. She was last scheduled for surgery 12/15/2017 and before that 06/17/2016. She has bilateral knee pain, right side greater than left that has been ongoing for years. It has become worse with time. She has a known history of rheumatoid arthritis and history of pseudogout. Right knee pain is affecting her ADLs. She is ambulatory with a walker and braces at this time. Pain is worse with weightbearing and ambulation. She has a valgus deformity. She elects to proceed with surgical intervention in hopes of alleviating her pain. Preoperative imaging has been obtained. She has tried conservative care measures including oral and topical anti-inflammatories as well as activity modification and bracing without success. 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 PAST SURGICAL HISTORY: Tonsillectomy, right foot surgery, eye surgery, facial surgery, sigmoid colectomy, exploratory laparoscopy, cystoscopy with ureteral stent placement, colostomy and colostomy reversal, and cardiac catheterization. ALLERGIES: KNOWN ALLERGY TO AVELOX, CIPRO, CODEINE, DIFLUCAN, SULFA, LATEX AND NICKEL ALLERGY. LACTOSE ALLERGY. CURRENT MEDICATIONS: Tylenol Arthritis 2 tabs q. 8 hours p.r.n., albuterol/ipratropium, DuoNeb q. 6 hours p.r.n., aspirin 81 mg p.o. q.p.m., biotin 10 mg p.o. twice a week, Symbicort 160 mcg 2 puffs b.i.d., calcium carbonate p.o. daily, vitamin D3 5000 units p.o. daily, tucks topical pads p.r.n., Plaquenil 200 mg p.o. daily, lisinopril 5 mg p.o. daily, magnesium oxide 400 mg p.o. daily, metoprolol 25 mg half tablet p.o. b.i.d., multivitamin p.o. daily, Systane eyedrops p.r.n., fish oil daily, MiraLax 17 grams p.o. daily, prednisone 3 mg p.o. daily, tramadol 25 mg p.o. q. 6 hours p.r.n. pain. FAMILY HISTORY: Significant for asthma, heart disease, renal failure and pneumonia. SOCIAL HISTORY: The patient is retired. No tobacco use, no ETOH use. Single. REVIEW OF SYSTEMS: Significant for above stated conditions, otherwise unremarkable. A total of 10 systems were reviewed. PHYSICAL EXAMINATION: GENERAL: Well-developed, well-nourished elderly white female in no acute distress. Sitting in a chair. Alert and oriented. SKIN: Warm and dry with fair turgor. No rashes or lesions. No ecchymosis or erythema. Obvious right-sided facial droop. HEENT: Normocephalic, atraumatic. Eyes: PERRLA, EOMI. Right facial droop as stated. Nares patent bilaterally without turbinate enlargement. Oropharynx without erythema or exudate. No lesions noted. Uvula midline. Oral mucosa moist. Dental caps and fillings are noted. HEART: RRR. No MGR. LUNGS: Clear to auscultation bilaterally. No crackles, rhonchi or wheezing. Good air movement. ABDOMEN: Bowel sounds present x4, soft, nontender. No organomegaly. Right and left lower quadrant hernias are present. MUSCULOSKELETAL: Right knee has obvious arthritic changes. Valgus stance. She has nearly full extension and lacks just a few degrees. Flexion to around 100 degrees. Pseudolaxity of the MCL secondary to her valgus positioning. Stable LCL. No defect in the patellar tendon or quadriceps tendon. She is ambulatory with an antalgic gait using her walker. Strength is 5/5 with fair quad tone. NEUROLOGIC: Gross sensation is intact across both lower extremities via soft touch. Peripheral pulses are 2+. Right facial droop is present. Right facial weakness is also noted. Cranial nerves are otherwise intact. DATA: Radiographic imaging previously obtained shows advanced DJD of the right knee with joint space narrowing, periarticular osteophytes, and subchondral sclerosis. IMPRESSION: Right knee endstage rheumatoid arthritis with valgus stance. PLAN: Postoperative prescriptions for Percocet and Coumadin will be provided at discharge from the hospital. Anticipate discharge to a custodial facility or [facility]. She will then return home. She already has obtained medical clearance from Dr. Herring. Preoperative lab work, EKG, and chest x-ray have been ordered. She already has a walker and cane. Because of her nickel allergy she will receive an Oxinium implant. The [employer] rep has been notified. Informed written consent will be obtained the morning of surgery.
[~2018-07-13 07:56] MED LIST changes: -ACET-1311 PO; -ASPI81TA28 PO; +BUPIVACAINE 0.5 % 5 MG/1 ML PF 10ML VIAL ONE; +CEFAZOLIN 2000MG 2,000 MG/15 ML SYR IV SCH; -CHOL1000 PO; -DILT-115 PO; -HYDR200T5 PO; +HYDROCORTISONE 100 MG *12cc Syringe IV SCH; +LR 500ML BOLUS, THEN 15ML/HR IV SCH; +LR 60ML/HR IV SCH; -METH2.5T PO; -MULT-506 PO; -ORNI125 SQ; +ROPIVACAINE 0.5% 5 MG/ML 30 ML VIAL ONE; +ROPIVACAINE 0.5% HCL/PF 150 MG, BUPIVACAINE 0.5% MPF 30 ML, EPINEPHrine 0.15 MG, Ketoro... INFIL SCH; -SYMIN160 INH; +TRANEXAMIC ACID 1,000 MG x 1 **For Topical Use TOP SCH; -VNTHFA/IN INH
--- NOTE | 2018-07-13 08:55 | History & Physical Bridge Note ---
Date of Service July 13, 2018 History & Physical Bridge Note I have examined the patient, reviewed the History & Physical and in the interval since the performance of the History & Physical I have noted the following changes of clinical significance:consent obtained.patient well aware of her risk. no changes noted
[2018-07-13] MEDS ORDERED: ACETAMINOPHEN 1,000 MG/100 ML VIAL IV ONE (10:12)
[2018-07-13] MEDS ORDERED: fentaNYL citrate 100 MCG/2 ML VIAL ONE (10:13)
[2018-07-13] MEDS ORDERED: MIDAZOLAM HCL 1 MG/ML 2ML VIAL ONE ×2 (10:13)
[2018-07-13] MEDS ORDERED: ACETAMINOPHEN 1000 MG/100 ML IV IV ONE (10:16)
[2018-07-13] MEDS ORDERED: POVIDONE-IODINE OP SOLN 30 ML BTL ONE (10:54)
[2018-07-13] MEDS ORDERED: ORTHO JOINT ANESTHETIC ONE (10:54)
[2018-07-13] MEDS ORDERED: ePHEDrine sulfate 50 MG/ML AMP IV PRN (11:18)
[2018-07-13] MEDS ORDERED: fentaNYL citrate 100 MCG/2 ML VIAL IV PRN (11:18)
[2018-07-13] MEDS ORDERED: ONDANSETRON INJ 2 MG/ML 2 ML VIAL IV PRN (11:18)
[2018-07-13] MEDS ORDERED: ATROPINE SULFATE 0.1 MG/ML 10ML SYR IV PRN (11:18)
[2018-07-13] MEDS ORDERED: PROPOFOL IV EMULSION 10 MG/ML 20 ML VIAL IV ONE (12:25)
[2018-07-13] MEDS ORDERED: LIDOCAINE HCL 2% 2 ML VIAL/AMP(20MG/ML) INFIL ONE (12:25)
--- NOTE | 2018-07-13 12:56 | Post Operative Brief Note ---
Immediate Post Op Note v1 Date of Surgery July 13, 2018 Pre & Post Diagnosis Operation Date: 07/13/18 10:40 Pre-Op Diagnosis: Right Knee Degenerative Joint Disease, Rhuematoid Arthritis Post-Op Diagnosis: Right Knee Degenerative Joint Disease, Rhuematoid Arthritis Procedure Operation Date: 07/13/18 10:40 Actual Procedures p Right Total Knee Arthroplasty, Cemented(Right) - Jad Cornell MD Surgeon Jad Cornell MD Laborer [facility] Estimated Blood Loss 50 Findings Consistent with Post-Op Diagnosis
--- NOTE | 2018-07-13 13:29 | Operative Report ---
Post Operative Report Pre & Post Diagnosis Operation Date: 07/13/18 10:40 Pre-Op Diagnosis: Right Knee Degenerative Joint Disease, Rhuematoid Arthritis Post-Op Diagnosis: Right Knee Degenerative Joint Disease, Rhuematoid Arthritis Procedure Operation Date: 07/13/18 10:40 Actual Procedures p Right Total Knee Arthroplasty, Cemented(Right) - Jad Cornell MD Surgeon SUSAN Cornell MD [facility] Estimated Blood Loss 50 Findings Consistent with Post-Op Diagnosis Specimens see operative report Drains none Complications none Disposition Accompanied Patient To Recovery: Yes Disposition: Recovery Room Indications This 77-year-old white female presented to the office with complaints of intractable right knee pain. She had tried conservative care measures including activity modification, without improvement. She elected to proceed with surgical intervention after being educated about potential risks and outcomes. Preoperative imaging was obtained. Description of Procedure Patient was administered a spinal anesthetic and then taken to the operating room where she was given sedation. She was prepped and draped in the usual sterile fashion. Please see Dr. Cornell's operative report for specifics of the procedure. I was present for the entire case from initial patient positioning through final wound closure. Assistance was provided in tissue retraction, hemostasis, trial implant placement, final implant placement, and final wound closure. Patient was taken to the recovery room in satisfactory condition. I attest to the content of the Intraoperative Record and any orders documented therein. Any exceptions are noted below.
--- NOTE | 2018-07-13 13:37 | XRay Report ---
XR knee RT 2V routine CLINICAL HISTORY: 77 years-old Female presenting with Surgical Post Op. TECHNIQUE: Frontal and crosstable lateral views of the right knee were obtained. COMPARISON: 11/22/2017. FINDINGS: There has been interval total right knee arthroplasty with patellar resurfacing. Expected intra-artic ular and soft tissue emphysema. Underlying osteopenia suspected. No malalignment or periprosthetic fr acture. Overlying skin perry noted. IMPRESSION: Expected postsurgical appearance status post total right knee arthroplasty with patellar resurfacing. Electronically signed by: Meek Julien M.D. 07/13/2018 1:35 PM
--- NOTE | 2018-07-13 13:44 | Operative Report ---
DATE OF OPERATION: 07/13/2018 SURGEON: Jad Cornell MD. BOILER HELPER: Jose Askew PA-C. No resident or fellow available. PREOPERATIVE DIAGNOSIS: Severe valgus deformity, rheumatoid arthritis with secondary osteoarthritis of the right knee. POSTOPERATIVE DIAGNOSIS: Severe valgus deformity, rheumatoid arthritis with secondary osteoarthritis of the right knee. OPERATION PERFORMED: Cemented right total knee replacement using [employer] system Legion knee with ultra constrained liners. SUMMARY OF IMPLANTS: Size 3 femur, size 3 tibia with a 12 x 100 stem, poly 18 constrained, patella 32. Two bags of Palacos G cement. ESTIMATED BLOOD LOSS: 50 Ml. CRYSTALLOID: Per anesthesia. BONE PATHOLOGY: Pending. PROPHYLAXIS: DVT prophylaxis with Coumadin. PERIOPERATIVE SITUATION: Medically cleared female with intractable knee pain, has been scheduled multiple times and has always had issues medically then. She understands that she is high risk, but wants to proceed. She has severe pain, severe deformity and some laxity to the right knee. She is in marked valgus. She has secondary foot deformities as well. She has severe rheumatoid disease. She is cleared medically. PROCEDURE DESCRIPTION: The patient was appropriately identified, site verified, consent verified. Antibiotics confirmed as being given. The right lower extremity was prepped and draped in the usual routine fashion. An anterior approach to the knee was made. Care was taken to make full thickness skin flaps. Parapatellar arthrotomy performed. Synovectomy completed. Menisci resected. Distal femur entered. Cruciates resected. Tibia was subluxated. Distal femur resected. Proximal tibia resected. Extension gap was excellent. There was about a 10 mm total gap. The femur was sized to a 3, appropriate cutting block applied and the anterior, posterior condylar and chamfer cuts were made. Flexion gap was then checked that was excellent. Orthomix injected posteriorly. The box cut was then made with a specialized reamer and chisel. No issues. The size 3 fit well. The femur was then broached and reamed to a size 2. At the end, a 12 x 100 reamer was placed on to get the stem down. The size 3 rotation was marked. The patella tracked well. The stability of the knee was excellent with an 18 poly. The patella was then planed by hand and then the seating holes made and the size 32 patella fit well. It tracked very well. The knee was then injected with the Orthomix. After this, all implants were removed and the TXA was placed for 4 minutes. The wound was then irrigated and then the permanent implants were cemented into position. After 12 minutes, tourniquet was deflated. Minor bleeding was controlled with electrocautery. After 14 minutes, the knee was flexed. Minor cement removed, knee irrigated with Betadine and permanent liner seated and engaged, and the knee was then reduced. It had excellent stability in full extension, 30 degrees of flexion and 90 degrees of . The extensor mechanism tracked well. The wound was then closed with the knee flexed 60 degrees with #2 Vicryl for the capsular layer, 2-0 Vicryl for the subcutaneous layer and stainless steel clips for skin. Appropriate dressing applied. The patient was then transferred to recovery room in satisfactory condition having tolerated the procedure well. Bone pathology pending. EBL 50 mL. DVT prophylaxis with Coumadin. Summary of implants as noted above. I attest to the content of the Intraoperative Record and any orders documented therein. Any exceptions are noted below. ERMIASD
--- NOTE | 2018-07-13 13:57 | Progress Note ---
DATE: 07/13/2018 Postop check status post right total knee replacement. The patient is lying in the recovery room having no issues. Her vital signs are stable. She is afebrile. She denies chest pain, shortness of breath, fever, chills, nausea, vomiting or headache. PHYSICAL EXAMINATION: VITAL SIGNS: Stable. She is afebrile. ABDOMEN: Soft, nontender. NEUROVASCULAR CHECK: Limited by spinal. Postop x-rays looked excellent. ASSESSMENT: Doing well status post total knee replacement on the right. Continue postoperative care pathway.
--- NOTE | 2018-07-13 14:59 | Anesthesiology Progress Note ---
Date of Service July 13, 2018 Anesthesia Post Procedure Vital Signs Vital Signs: Temp Pulse Pulse Resp BP Pulse Ox 07/13/18 14:40 57 L 15 125/52 L 96 07/13/18 14:25 37.2 C 58 L 21 126/53 L 95 07/13/18 14:15 59 L 17 132/56 L 94 07/13/18 14:05 58 L 16 125/62 95 07/13/18 13:55 61 17 130/55 L 95 07/13/18 13:45 59 L 15 134/58 L 95 07/13/18 13:35 60 19 124/62 97 07/13/18 13:25 59 L 16 139/61 99 07/13/18 13:15 59 L 16 127/54 L 97 07/13/18 13:05 37 C 61 18 126/56 L 95 07/13/18 08:51 36.7 C 69 18 136/62 97 Notes Mental Status: alert / awake / arousable and participated in evaluation Nausea / Vomiting: adequately controlled Pain: adequately controlled Airway Patency, RR, SpO2: stable & adequate BP & HR: stable & adequate Hydration State: stable & adequate Neuraxial Anesthesia: was administered and sensory block is resolving Anesthetic Complications: no major complications apparent
[2018-07-13] MEDS ORDERED: METOCLOPRAMIDE HCL INJ 5 MG/ML 2 ML VIAL IV PRN (15:03)
[2018-07-13] MEDS ORDERED: VANCOMYCIN CONSULT ACTIVE PRN (15:03)
[2018-07-13] MEDS ORDERED: NALOXONE HCL 0.4 MG/1 ML VIAL/CARP IV PRN (15:03)
[2018-07-13] MEDS ORDERED: DiphenhydrAMINE HCL 50 MG/ML VIAL IV PRN (15:03)
[2018-07-13] MEDS ORDERED: BISACODYL 10 MG SUPP PR PRN (15:03)
[2018-07-13] MEDS ORDERED: MAGNESIUM HYDROXIDE SUSP 30 ML UDC PO PRN (15:03)
[2018-07-13] MEDS ORDERED: ALUMINUM/MAGNESIUM SUSP 30 ML UDC PO PRN (15:03)
[2018-07-13] MEDS ORDERED: SODIUM CHLORIDE 0.9% 1000ML 1,000 ML IV SCH (15:03)
[2018-07-13] MEDS ORDERED: VANCOMYCIN HCL 750 MG in SODIUM CHLORIDE 0.9% 250 ML IV ONE (16:00)
[2018-07-13] MEDS: FERROUS GLUCONATE 324 MG TAB PO SCH (17:52)
[2018-07-13] MEDS: KETOROLAC TROMETHAMINE 15 MG/ML VIAL IV SCH ×2 (17:54→23:05)
[2018-07-13] MEDS: ORTHO WARFARIN NOMOGRAM SCH (18:02)
[2018-07-13] MEDS: CEFAZOLIN 1000MG 1,000 MG/7.5 ML SYR IV SCH (20:04)
[2018-07-13] MEDS: DOCUSATE SODIUM 100 MG CAP PO SCH (20:10)
[2018-07-13] MEDS: ASPIRIN 81 MG ECTAB PO SCH (20:10)
[2018-07-13] MEDS: MAGNESIUM OXIDE 400 MG TAB PO SCH (20:10)
[2018-07-13] MEDS: METOPROLOL TARTRATE 25 MG TAB PO SCH (20:10)
[2018-07-13] MEDS: SENNA 8.6 MG TAB PO SCH (20:10)
[2018-07-13] MEDS: BUDESONIDE/FORMOTEROL FUMARATE 160/4.5 60 PUFFS/INHALER INH SCH (20:11)
[2018-07-13] MEDS ORDERED: WARFARIN SOD 5 MG TAB PO ONE (20:45)
[2018-07-13] MEDS: ACETAMINOPHEN 500 MG TAB PO SCH (20:56)
--- NOTE | 2018-07-13 22:12 | Discharge Summary ---
Date of potential discharge depends on insurance placement issues. CHIEF COMPLAINT: Right knee pain. HISTORY OF PRESENT ILLNESS: Complicated 77-year-old female who presents for elective right total knee arthroplasty with a history of rheumatoid arthritis and secondary osteoarthritis. She has marked ligamentous instability to the knee as well. Also has a history of pseudogout. Her pain is end stage. She has been on the surgery schedule multiple times in the past and always cancelled or had medical issues that caused her to cancel. At this point in time, she admitted and underwent the procedure without difficulty. PAST MEDICAL HISTORY: Remarkable for hypertension, asthma, TIA, chronic facial droop due to the Muro palsy, history of left arm thrombosis, rheumatoid arthritis, osteoarthritis, and hiatal hernia, vertigo, stable brain hemangioma, history of atopic dermatitis, multiple pulmonary nodules, Sjogren syndrome, previous UTIs, CHF, abdominal hernias with history of incarceration and obstruction. PAST SURGICAL HISTORY: Remarkable for tonsillectomy, foot surgery, eye surgery, facial surgery, sigmoid colectomy, exploratory laparoscopy, cystoscopy, ureteral stent placement, colostomy and reversal, cardiac catheterization. ALLERGIES: KNOWN ALLERGY TO AVELOX, CIPRO, CODEINE, DIFLUCAN, SULFA, LATEX AND NICKEL, ALSO HAS LACTOSE ALLERGY. PREADMISSION MEDICATIONS: Include Tylenol Arthritis, albuterol, ipratropium, DuoNeb, aspirin, biotin, Symbicort, calcium carbonate, multivitamins, Tucks pad, Plaquenil, , magnesium oxide, metoprolol, Systane eyedrops, fish oil, MiraLax, prednisone, tramadol. FAMILY HISTORY: Remarkable for asthma, heart disease, renal failure and pneumonia. SOCIAL HISTORY: Reveals she is retired. No tobacco or alcohol use. REVIEW OF SYSTEMS: Noncontributory. HOSPITAL COURSE: Has been uneventful, although the patient is very apprehensive about going home as she have issues staying with local rehab care due to previous facility's telephonic case manager is involved. At this point in time placement is pending on case management placement. ASSESSMENT: Overall doing well status post right total knee replacement for severe disease and instability. He has done well. Postoperative x-rays look excellent. PLAN: To discharge when appropriate based on case management. Discharge medications remain the same as that she had preop with the addition of Coumadin to keep INR 1.8-2.2. Discharge on 4 mg if INR is less than 1.4 and 2 mg if INR is 1.5-1.8 and 0 mg if INR is 1.8 or greater. Follow up in 2 weeks for suture, staple removal. MTDD
[2018-07-14] MEDS: CEFAZOLIN 1000MG 1,000 MG/7.5 ML SYR IV SCH (03:15)
[2018-07-14] MEDS: TRAMADOL HCL 50 MG TABLET PO PRN ×2 (03:21→17:30)
[2018-07-14] MEDS: ONDANSETRON INJ 2 MG/ML 2 ML VIAL IV PRN (04:14)
[2018-07-14] MEDS: MoRPHine SULFATE 4 MG/ML 1 ML CARP\\VIAL IV PRN (04:14)
[2018-07-14] MEDS: ACETAMINOPHEN 500 MG TAB PO SCH ×3 (05:14→22:11)
[2018-07-14] MEDS: KETOROLAC TROMETHAMINE 15 MG/ML VIAL IV SCH ×2 (05:15→12:13)
[2018-07-14 07:28] LABS: Hematocrit (blood only) 28.9 % (37-47); Hemoglobin 9.5 g/dL (12.0-16.0); Mean Corpuscular Hgb Conc 32.9 g/dL (32-36); Mean Corpuscular Volume 92.3 fL (80-100); Mean Platelet Volume 9.1 fL (7.4-10.4); Platelet Count 341 K/uL (130-400); RDW Coefficient of Variation 13.6 % (11.5-14.5); RDW Standard Deviation 45.7 fL (36.4-46.3); Red Blood Count 3.13 M/uL (4.2-5.4); White Blood Count 12.49 K/uL (4.8-10.8)
[2018-07-14 07:39] LABS: INR 1.1 (0.9-1.1); Prothrombin Time 10.9 Seconds (9.0-12.0)
[2018-07-14 07:57] LABS: BUN Creatinine Ratio 34.2 (10-20); Calcium 8.6 mg/dl (8.5-10.1); Creatinine Clr Calc Pharmacy 59.1 ml/min; Est GFR (African American) 100.1; Est GFR (Non-African American) 86.4; Potassium 4.1 mmol/L (3.5-5.1)
[2018-07-14] MEDS ORDERED: dexAMETHasone 10 MG in SYRINGE 0 ML IV SCH (08:00)
--- NOTE | 2018-07-14 08:28 | Progress Note ---
DATE: 07/14/2018 Status post right total knee replacement. The patient is doing well. Denies any chest pain, shortness of breath, fever, chills, nausea, vomiting or headache. Vital signs are stable. She is afebrile. Hematocrit is stable at 28.9 range. Electrolytes are relative baseline for her, slightly hyponatremic. ASSESSMENT: Doing well at this point in time from orthopedic perspective. Medical issues are relatively stable. Placement issues pending per case management. We will await their suggestions.
[2018-07-14] MEDS: BUDESONIDE/FORMOTEROL FUMARATE 160/4.5 60 PUFFS/INHALER INH SCH ×2 (08:34→20:04)
[2018-07-14] MEDS: POLYETHYLENE (MIRALAX) 17 GM PACK PO SCH (08:34)
[2018-07-14] MEDS: METOPROLOL TARTRATE 25 MG TAB PO SCH ×2 (08:36→20:05)
[2018-07-14] MEDS: DOCUSATE SODIUM 100 MG CAP PO SCH ×2 (08:36→20:08)
[2018-07-14] MEDS: FERROUS GLUCONATE 324 MG TAB PO SCH ×2 (08:36→17:07)
[2018-07-14] MEDS: MULTIVITAMIN TAB PO SCH (08:37)
[2018-07-14] MEDS: LISINOPRIL 10 MG TAB PO SCH (08:37)
[2018-07-14] MEDS: ORTHO WARFARIN NOMOGRAM SCH (09:13)
--- NOTE | 2018-07-14 09:27 | Anesthesiology Progress Note ---
Date of Service July 14, 2018 Anesthesia Post Procedure Vital Signs Vital Signs: Temp Pulse Pulse Pulse Resp BP BP 07/14/18 07:00 36.6 C 55 L 16 148/61 H 07/14/18 06:04 59 L 144/67 H 07/14/18 03:15 36.6 C 61 18 172/75 H 07/13/18 23:10 36.8 C 58 L 18 154/71 H 07/13/18 20:09 60 115/63 07/13/18 18:00 37.1 C 71 16 166/80 H 07/13/18 17:00 59 L 17 149/69 H 07/13/18 16:10 36.7 C 61 15 147/74 H 07/13/18 15:29 58 L 14 142/70 H 07/13/18 15:07 37.3 C 59 L 14 122/63 07/13/18 14:40 57 L 15 125/52 L 07/13/18 14:25 37.2 C 58 L 21 126/53 L 07/13/18 14:15 59 L 17 132/56 L 07/13/18 14:05 58 L 16 125/62 07/13/18 13:55 61 17 130/55 L 07/13/18 13:45 59 L 15 134/58 L 07/13/18 13:35 60 19 124/62 07/13/18 13:25 59 L 16 139/61 07/13/18 13:15 59 L 16 127/54 L 07/13/18 13:05 37 C 61 18 126/56 L Pulse Ox 07/14/18 07:00 96 07/14/18 06:04 07/14/18 03:15 96 07/13/18 23:10 93 07/13/18 20:09 07/13/18 18:00 95 07/13/18 17:00 98 07/13/18 16:10 97 07/13/18 15:29 97 07/13/18 15:07 97 07/13/18 14:40 96 07/13/18 14:25 95 07/13/18 14:15 94 07/13/18 14:05 95 07/13/18 13:55 95 07/13/18 13:45 95 07/13/18 13:35 97 07/13/18 13:25 99 07/13/18 13:15 97 07/13/18 13:05 95 Pain Intensity Right Knee: Pain Intensity: 4 Notes Mental Status: alert / awake / arousable and participated in evaluation Patient Amnestic to Procedure: Yes Nausea / Vomiting: adequately controlled Pain: adequately controlled Airway Patency, RR, SpO2: stable & adequate Hydration State: stable & adequate Neuraxial Anesthesia: was administered and sensory block is resolving Anesthetic Complications: no major complications apparent and Pt Satisfied with anesthetic care
--- NOTE | 2018-07-14 10:29 | Orthopedic Progress Note ---
Date of Service July 14, 2018 Assessment & Plan (1) S/P total knee replacement using cement: PT/OT Awaiting case management recommendations for placement. Patient no longer wants to go to facility in [place]. She states that she would rather go to the [facility]. DVT prophylaxis with Coumadin and TEDs Goal INR 1.8-2.2 Ice with EZ wrap Pain control with PO meds F/u at [facility] as previously scheduled With any questions call . Subjective Day 1 s/p Right total knee arthroplasty. Doing well at this point. Just finished PT and did well ambulating with assistance. C/o mild quad pain from turnicate. Denies CP, SOB, nausea, vomiting, fever, chills, sweat or lethargy. NV intact. Physical Exam Vital Signs (Past 24 Hours): Last Vital Signs Temp 36.6 C 07/14/18 07:00 Pulse 55 L 07/14/18 07:00 Resp 16 07/14/18 07:00 BP 148/61 H 07/14/18 07:00 Pulse Ox 96 07/14/18 07:00 Physical Exam: Right knee: dressing removed. No flucutance or discharge noted. Icard intact. Quad atrophy. Unable to perform SLRT actively but can with active assistance. Calf soft and supple without tenderness. NV intact. Able to dorsi/plantar flex against resistance w/o referred pain.
[2018-07-14] MEDS ORDERED: WARFARIN SOD 5 MG TAB PO ONE (16:00)
[2018-07-14] MEDS: MAGNESIUM OXIDE 400 MG TAB PO SCH (20:07)
[2018-07-14] MEDS: ASPIRIN 81 MG ECTAB PO SCH (20:07)
[2018-07-14] MEDS: SENNA 8.6 MG TAB PO SCH (20:07)
[2018-07-15] MEDS: MoRPHine SULFATE 4 MG/ML 1 ML CARP\\VIAL IV PRN (00:12)
[2018-07-15] MEDS: ONDANSETRON INJ 2 MG/ML 2 ML VIAL IV PRN (00:13)
[2018-07-15] MEDS: ACETAMINOPHEN 500 MG TAB PO SCH ×3 (06:29→18:15)
[2018-07-15] MEDS: BUDESONIDE/FORMOTEROL FUMARATE 160/4.5 60 PUFFS/INHALER INH SCH ×2 (06:33→21:39)
--- NOTE | 2018-07-15 07:39 | Progress Note ---
DATE: 07/15/2018 SUBJECTIVE: Postop day #2 status post right total knee replacement. The patient is doing well with her comorbidities. She is ambulating some, rheumatoid arthritis is quite severe and she requires a fair amount of assistance to get around. She notes that her right knee feels much more stable. She denies any fever, chills, nausea, vomiting or headache. OBJECTIVE: Vital signs are stable. She is afebrile. Neurovascular check femoral sciatic nerve is clean. The wound dressing is clean, dry, and intact. Can flex and extend her knee from near 0 to near 50-60 degrees. ASSESSMENT: Overall, doing reasonably well. We will try to adjust pain management. She is trying to avoid narcotics because of her history of bowel obstructions. We will place her on 650 mg of Tylenol q. 6 hours ATC, 50 mg of tramadol q. 6 hours ATC, 100 mg of gabapentin p.o. b.i.d. She has a severe ALLERGY TO SULFA, so we will avoid Celebrex. We will also increase her prednisone from 3 mg a day to 5 mg a day. Continue supportive care. Continue PT, OT. Awaiting word on whether or not she is accepted to [facility] for transfer tomorrow.
--- NOTE | 2018-07-15 07:50 | Discharge Summary ---
ADDENDUM At this point in time, she is required by Medicare rules to stay 3 nights based on the potential transfer to [facility]. This is required based on her severe rheumatoid arthritic disease which involves all joints in her upper extremities and lower extremities. She had a right knee replacement that is recovering well; however, does require fair amount of assistance to get to the bathroom. Going home alone is not an option. Presently, medically she is doing well, just awaiting bed. [facility] is not available. She will need to go to [facility] per her wishes. Pain management, try to avoid narcotics. Upgraded her Tylenol to around the clock every 6 hours, tramadol around the clock every 4 hours, gabapentin 100 mg p.o. b.i.d. and increased her prednisone from 3 mg to 5 mg daily. Try to avoid narcotics. Considered Celebrex, but has SEVERE ALLERGY TO sulfa. MTDD
[2018-07-15] MEDS ORDERED: ACETAMINOPHEN SOLN 500 MG/15.62 ML UDP PO SCH ×2 (08:00)
[2018-07-15] MEDS: POLYETHYLENE (MIRALAX) 17 GM PACK PO SCH (08:34)
[2018-07-15] MEDS: FERROUS GLUCONATE 324 MG TAB PO SCH ×2 (08:35→16:30)
[2018-07-15] MEDS: DOCUSATE SODIUM 100 MG CAP PO SCH ×2 (08:35→21:38)
[2018-07-15] MEDS: METOPROLOL TARTRATE 25 MG TAB PO SCH ×2 (08:36→21:38)
[2018-07-15] MEDS: GABAPENTIN 100 MG CAP PO SCH ×2 (08:37→21:38)
[2018-07-15] MEDS: LISINOPRIL 10 MG TAB PO SCH (08:37)
[2018-07-15] MEDS: predniSONE 5 MG TAB PO SCH (08:37)
[2018-07-15] MEDS: MULTIVITAMIN TAB PO SCH (08:38)
[2018-07-15] MEDS: TRAMADOL HCL 50 MG TABLET PO SCH ×2 (11:45→18:14)
--- NOTE | 2018-07-15 14:53 | Progress Note ---
DATE: 07/15/2018 SUBJECTIVE: Afternoon rounds, she is sitting up in bed, speaking with her friend, Cj. No issues. Denies chest pain, shortness of breath, fever, chills, nausea, vomiting, or headache. She states she has been up and around. She can try to get up and walk without her knee immobilizer. I think it is okay at this point in time, she is 48 hours postop. OBJECTIVE: Wound dressing clean, dry and intact. Neurovascular check is normal. ASSESSMENT: Doing well. Continue with postop care pathway transfer to [facility] tomorrow, transportation arranged.
[2018-07-15] MEDS ORDERED: WARFARIN SOD 2 MG TAB PO ONE (16:00)
[2018-07-15] MEDS: MAGNESIUM OXIDE 400 MG TAB PO SCH (21:38)
[2018-07-15] MEDS: ASPIRIN 81 MG ECTAB PO SCH (21:39)
[2018-07-15] MEDS: SENNA 8.6 MG TAB PO SCH (21:39)
[2018-07-16] MEDS: TRAMADOL HCL 50 MG TABLET PO SCH ×3 (00:20→14:41)
[2018-07-16] MEDS: ACETAMINOPHEN 500 MG TAB PO SCH ×3 (00:21→13:04)
[2018-07-16] MEDS: BUDESONIDE/FORMOTEROL FUMARATE 160/4.5 60 PUFFS/INHALER INH SCH (04:00)
[2018-07-16] MEDS ORDERED: ALBUT/IPRATROP 3MG/0.5MG NEB 3 ML VIAL NEB STA (07:48)
[2018-07-16] MEDS ORDERED: methylPREDNISolone 125 MG/2 ML VIAL IV STA (08:00)
--- NOTE | 2018-07-16 08:05 | Consultation ---
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 She is currently admitted after a right TKA and is postop day 3. She reported chest tightness that came on around midnight last night and associated shortness of breath. She waited till this morning to tell her nurse about it. She has a history of asthma but has not had an exacerbation in many years. The chest tightness is fairly constant and she felt especially short of breath with getting up and walking to the bathroom. Her pulse ox was lower than it had been around 91% on room air and she was placed on nasal cannula before I saw her. The chest tightness is not radiating. She does have a history of nonischemic cardiomyopathy with an LVEF of 45-50% but had a perfectly clean cardiac catheterization just in 11/2017. -Seems likely related to an acute asthma exacerbation. ECG without ischemic changes. Had a clean coronary artery angiogram just 9 months ago. Given the pains been going on for 8 hours now, would expect troponin to be elevated if is cardiac related. She is a long history of asthma and rheumatoid lung disease. -Check stat troponin -Check CBC, CMP -Give DuoNeb stat now and then every 6 hours -Start Solu-Medrol 125 mg IV x1 now then 60 mg IV every 8 -Check chest x-ray -will follow (2) Shortness of breath: Likely secondary to acute asthma exacerbation as above Treatment as above With mildly low pulse ox-continue supplemental O2 to keep pulse ox greater than 90% (3) Rheumatoid arthritis: Severe, with chronic deformities -Continue home prednisone and giving IV steroids as above for asthma exacerbation - home Plaquenil is on hold (4) HTN (hypertension): Blood pressures stable to mildly elevated -Continue home metoprolol which should actually be succinate instead of tartrate 12.5 mg p.o. twice daily, lisinopril 10 mg daily -She had her diltiazem CD 120 mg discontinued after her recent bowel blockage in 05/2018 (5) Asthma: With acute exacerbation as above -Treating with DuoNeb's every 6, steroids as above (6) Chronic systolic CHF (congestive heart failure): Nonischemic cardiomyopathy-with LVEF 45-50% on cardiac catheterization in 11/2017 with clean coronary arteries No evidence of volume overload at this time -Takes Lasix as needed which is hardly ever at home -Does not need diuretics now -Remain on lisinopril, metoprolol (7) GERD (gastroesophageal reflux disease): Stable -With history of peptic ulcer disease with hemorrhage in the past --Should likely be on a PPI-we will find out why she is not? (8) Hyponatremia: Sodium has been mildly low in the past, was 128 on labs from 07/14 -Check BMP now (9) Peptic ulcer disease: As above (10) Facial nerve palsy: Chronic since age 17 secondary to surgery on a bleeding hemangioma on her face (11) Rheumatoid lung: With known pulmonary nodules -Follows with pulmonary -Continue Symbicort (12) S/P total knee replacement using cement: Postop day #3 -Management as per orthopedics -On Coumadin for DVT prophylaxis, goal INR 1.8 -Continue pain control with prednisone, gabapentin was added -Discussed case with Dr. Gimenez today (13) Acute blood loss anemia: Hemoglobin dropped to 9 on postop day #1 Vitals are stable -Follow CBC today (14) DVT prophylaxis: Using Coumadin, follow INR Disposition-remain in hospital until chest tightness and shortness of breath improved History of Present Illness Reason for Consultation: Chest tightness Requesting Physician: Dr. 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 She is currently admitted after a right TKA and is postop day 3. She reported chest tightness that came on around midnight last night and associated shortness of breath. She waited till this morning to tell her nurse about it. She has a history of asthma but has not had an exacerbation in many years. The chest tightness is fairly constant and she felt especially short of breath with getting up and walking to the bathroom. Her pulse ox was lower than it had been around 91% on room air and she was placed on nasal cannula before I saw her. The chest tightness is not radiating. She does have a history of nonischemic cardiomyopathy with an LVEF of 45-50% but had a perfectly clean cardiac catheterization just in 11/2017. Allergies Allergy/AdvReac Type Severity Reaction Status Date / Time codeine Allergy Mild DIZZINESS Verified 07/13/18 08:46 latex Allergy Mild RASH Verified 07/13/18 08:46 moxifloxacin Allergy Mild PAIN IN Verified 07/13/18 08:46 HEEL nickel Allergy Mild RASH ON Verified 07/13/18 08:46 EARS WITH EARRINGS WITH NICKEL Sulfa (Sulfonamide Allergy Mild Rash Verified 07/13/18 08:46 Antibiotics) banana Allergy Unknown RASH Verified 07/13/18 08:46 Cipro Allergy Unknown PASSED Verified 11/16/17 08:18 OUT, SEVERE RXN PER PATIENT ciprofloxacin Allergy Unknown PASSED Verified 07/13/18 08:46 OUT, SEVERE RXN PER PATIENT nut - unspecified Allergy Unknown HIVES Verified 07/13/18 08:46 fluconazole AdvReac Intermediate TACHYCARDIA, Verified 07/13/18 08:46 HAIR LOSS adhesive AdvReac Mild CONTACT Verified 07/13/18 08:46 DERMATITIS Home Medications Home Medications Medication Instructions Recorded Confirmed Type Symbicort 2 puff INHALATION BID #15 g 05/25/18 07/13/18 Rx ipratropium-albuterol 3 ml NEB Q2H PRN #0 ml 05/25/18 07/13/18 Rx ondansetron HCl (PF) 4 mg IV Q6H PRN #0 ml 05/25/18 07/13/18 Rx aspirin [Aspir-81] 81 mg PO QPM 06/21/18 07/13/18 History cholecalciferol (vitamin D3) 500 unit PO QPM 06/21/18 07/13/18 History [Vitamin D3] hydroxychloroquine [Plaquenil] 200 mg PO QAM 06/21/18 07/13/18 History lisinopril 10 mg PO QAM 06/21/18 07/13/18 History magnesium oxide 400 mg PO QPM 06/21/18 07/13/18 History omega 1-ctd-ajo-fish oil [Fish Oil] 1 cap PO QPM 06/21/18 07/13/18 History polyethylene glycol 3350 [Miralax] 17 g PO QAM 06/21/18 07/13/18 History prednisone 3 mg PO QAM 06/21/18 07/13/18 History tramadol 50 mg PO Q6H PRN #30 tab 07/14/18 Rx warfarin [Coumadin] 4 mg PO DAILY #90 tab 07/14/18 Rx acetaminophen [Tylenol] 650 mg PO Q6H #90 tab 07/15/18 Rx gabapentin 100 mg PO BID #60 cap 07/15/18 Rx metoprolol succinate 12.5 mg PO BID 07/16/18 07/16/18 History Patient History Medical History Rheumatoid arthritis (Chronic) 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 Stroke like symptoms. Hx of diverticulitis of colon Hx of lower gastrointestinal bleeding Hx of congestive heart failure HTN (hypertension) (Chronic) Asthma (Chronic) Chronic systolic CHF (congestive heart failure) Eczema Facial nerve palsy GERD (gastroesophageal reflux disease) History of intestinal obstruction Hyponatremia Osteoarthritis Peptic ulcer disease Rheumatoid lung Surgical History History of colostomy (Acute) History of colostomy reversal (Acute) ETT#7, Glidescope #3, Grade 1 View - attempt x 1, atraumatic Hx of right heart catheterization 2017 [facility] History of partial colectomy History of total knee arthroplasty History of tonsillectomy Status post right foot surgery 2012 [facility] Family History Other Family history non-contributory History of section Social History Preferred Language: Luxembourgish Communication Ability: Effective Senior Data Scientist Required: Yes Beliefs That Will Affect Care: None Current Living Situation: Alone Other Information That Helps Us Care for You: No Feels Safe at Home: Yes Safety Concerns: Feels Safe At This Time Smoking Status: Former smoker Hx Alcohol Use: Yes (RARELY) Hx Substance Use: No Review of Systems 14 point review of systems otherwise negative except as per HPI Physical Exam Vital Signs (Past 24 Hours): Last Vital Signs Temp 36.7 C 07/16/18 06:16 Pulse 63 07/16/18 07:59 Resp 22 07/16/18 07:59 BP 153/76 H 07/16/18 06:16 Pulse Ox 98 07/16/18 07:59 Pulse ox 91% on room air Constitutional: WD/WN, vitals as above Eyes: + anicteric sclerae Right eye with palsy in almost all directions with extraocular muscle testing, right-sided facial paralysis noted ENMT: external ear and nose normal, oropharynx normal Neck: trachea midline, no thyromegaly Respiratory: + labored breathing (Mild distress) Auscultation: + crackles (Faint bibasilar) and + wheezes (A few scattered faint expiratory wheezes) Cardiovascular: RRR, no murmur, no edema Gastrointestinal (Abdomen): Inspection/Auscultation: normal bowel sounds; + abdomen abnormal to inspection (Very large left sided ventral hernia with multiple loops of bowel present, right lower quadrant smaller ventral hernia reducible) Percussion/Palpation: abdomen soft; abdomen nontender Musculoskeletal: Extremities: + extremities abnormal to inspection (Right knee dressing in place; hands and feet and toes with ulnar deviation and severely deformed joints), no cyanosis and no clubbing Skin: no rashes, warm and dry Neurologic: moves all extremities and awake; no focal motor deficits (Except right facial nerve palsy as above) Psychiatric: A+Ox3, euthymic affect Results & Data Laboratory Results 07/16/18 07/16/18 Range/Units 08:16 08:16 PT Pending INR Pending Sodium Pending Potassium Pending Chloride Pending Carbon Dioxide Pending Anion Gap Pending BUN Pending Creatinine Pending Est Cr Clr Drug Dosing Pending Est GFR ( Amer) Pending Est GFR (Non-Af Amer) Pending BUN/Creatinine Ratio Pending Glucose Pending Calcium Pending Magnesium Pending Total Bilirubin Pending AST Pending ALT Pending Alkaline Phosphatase Pending Troponin I Pending Total Protein Pending Albumin Pending Globulin Pending Albumin/Globulin Ratio Pending ECG Additional Comments: ECG with normal sinus rhythm, PVCs, no acute ischemia, improved from previous when she had anterior ST depression in May 2018
[2018-07-16] MEDS ORDERED: methylPREDNISolone 125 MG in SYRINGE 0 ML IV SCH (08:15)
[2018-07-16 08:44] LABS: INR 1.3 (0.9-1.1); Prothrombin Time 12.8 Seconds (9.0-12.0)
--- NOTE | 2018-07-16 08:57 | XRay Report ---
XR chest 2V routine HISTORY: chest tightness COMPARISON: Chest 05/25/2018. FINDINGS: No pneumothorax. Trace bilateral pleural effusions persist. Emphysema with hyperexpanded stephania ngs. Bibasilar linear densities remain unchanged and favor atelectasis or a heart remains enlarged. N o evidence for pulmonary edema. IMPRESSION: 1. No change in the cardiomegaly and trace bilateral pleural effusions. 2. Emphysema. 3. Bibasilar densities persist and favor atelectasis. Electronically signed by: Stanford Cuadra M.D. 07/16/2018 8:56 AM
[2018-07-16] MEDS ORDERED: METOPROLOL SUCC 25MG EXT REL TAB PO SCH (09:00)
[2018-07-16 09:20] LABS: Alanine Aminotransferase 14 U/L (12-78); Albumin Level 2.6 gm/dl (3.4-5.0); Aspartate Aminotransferase 15 U/L (15-37); BUN Creatinine Ratio 33.1 (10-20); Blood Urea Nitrogen 16 mg/dl (7-18); Calcium 8.8 mg/dl (8.5-10.1); Carbon Dioxide 29 mmol/L (21-32); Chloride 92 mmol/L (98-107); Creatinine Clr Calc Pharmacy 74.8 ml/min; Est GFR (African American) 108.2; Est GFR (Non-African American) 93.3; Glucose 131 mg/dl (70-99); Magnesium 1.9 mg/dl (1.8-2.4); Potassium 4.5 mmol/L (3.5-5.1); Sodium 129 mmol/L (136-145)
[2018-07-16 09:25] LABS: Albumin Globulin Ratio 0.7 (0.9-2); Alkaline Phosphatase 62 U/L (45-117); Bilirubin,Total 0.3 mg/dl (0.2-1); Globulin 3.9 gm/dl (2.5-4.0); Total Protein 6.5 gm/dl (6.4-8.2); Troponin I < 0.015 ng/ml (0-0.045)
[2018-07-16 09:31] LABS: Basophils # (auto) 0.03 K/uL (0-0.2); Basophils % (auto) 0.3 %; Eosinophils # (auto) 0.12 K/uL (0-0.5); Hematocrit (blood only) 29.8 % (37-47); Hemoglobin 9.7 g/dL (12.0-16.0); Immature Granulocytes # (auto) 0.06 K/uL (0.00-0.02); Immature Granulocytes % (auto) 0.5 %; Lymphocytes # (auto) 1.69 K/uL (1.2-3.4); Lymphocytes % (auto) 14.2 %; Mean Corpuscular Hgb Conc 32.6 g/dL (32-36); Mean Platelet Volume 9.2 fL (7.4-10.4); Monocytes # (auto) 1.33 K/uL (0.11-0.59); Monocytes % (auto) 11.1 %; Neutrophils % (auto) 72.9 %; Platelet Count 337 K/uL (130-400); RDW Coefficient of Variation 13.8 % (11.5-14.5); RDW Standard Deviation 47.5 fL (36.4-46.3); Red Blood Count 3.17 M/uL (4.2-5.4); White Blood Count 11.93 K/uL (4.8-10.8)
--- NOTE | 2018-07-16 09:33 | Progress Note ---
DATE: 07/16/2018 SUBJECTIVE: Postop day #3 status post right total knee replacement. The patient this morning was complaining of some tightness in her chest and some difficulty breathing. Medical consent was obtained. This was ordered by VANCE BEARD. Just have to be walking on to the floor to make rounds to potentially discharge her this morning when I became aware of this. The patient at this point in time is sitting up in bed, feeling a little bit anxious, but has no significant chest pain. She is not very tachypneic. OBJECTIVE: Vital signs are stable. She is afebrile. She has been evaluated by Dr. Kincaid. Defer medical evaluation to Dr. Kincaid. Orthopedically, both lower extremities revealed no significant edema. There is no calf tenderness. She has deformity secondary to her chronic rheumatoid arthritis in both upper and lower extremities. Wound dressing is removed. The knee replacement wound is clean and dry and intact. There is no significant swelling. Gentle range of motion from 0-60 degrees is without any real pain. Her stability medially and laterally is excellent. Abdomen is soft and nontender, has a significant abdominal wall hernia based on multiple surgeries, please see past medical history. ASSESSMENT: Status post right total knee replacement for severe deformity secondary to chronic rheumatoid arthritis. Original plan was to discharge/transfer to [facility] today. Will await finalized medical assessment to determine whether or not she leaves today. At this point in time, she appears to be well managed with her pain and it would not to make any major changes. Options of potentially increasing steroid based on asthma were discussed with Dr. Kincaid. We will wait final decision up to her. [facility] HOSPITALFausto
[2018-07-16] MEDS ORDERED: ALBUT/IPRATROP 3MG/0.5MG NEB 3 ML VIAL NEB SCH (12:00)
[2018-07-16] MEDS: GABAPENTIN 100 MG CAP PO SCH (12:23)
[2018-07-16] MEDS: DOCUSATE SODIUM 100 MG CAP PO SCH (12:24)
[2018-07-16] MEDS: FERROUS GLUCONATE 324 MG TAB PO SCH (12:24)
[2018-07-16] MEDS: MULTIVITAMIN TAB PO SCH (12:24)
[2018-07-16] MEDS: predniSONE 5 MG TAB PO SCH (12:25)
[2018-07-16] MEDS: LISINOPRIL 10 MG TAB PO SCH (12:26)
[2018-07-16] MEDS ORDERED: WARFARIN SOD 5 MG TAB PO ONE (13:30)
[2018-07-16] MEDS: POLYETHYLENE (MIRALAX) 17 GM PACK PO SCH (14:41)
[2018-07-16] MEDS: ORTHO WARFARIN NOMOGRAM SCH (15:40)
[2018-07-16] MEDS ORDERED: methylPREDNISolone 60 MG in SYRINGE 0 ML IV SCH (16:00)
--- NOTE | 2018-07-16 17:43 | Progress Note ---
DATE: 07/16/2018 ADDENDUM: She is feeling much better with her asthma-type treatments. All of her laboratory work came back fine. There is no issue with any type of change on her EKG, etc. Plan is to proceed with discharge. Dr. Kincaid evaluated and agrees. Will follow up as previously arranged for staple removal in roughly 2+ weeks. She is on steroids, so her perry need to be in a little bit longer.
--- NOTE | 2018-07-16 17:46 | Discharge Summary ---
ADDENDUM The patient had an episode of having some chest breathing tightness, responded very well to asthma treatment. Workup cardiac-carrion is negative, was evaluated thoroughly by Dr. Kincaid, hospitalist. She concurs with the ability to discharge. X-ray of her chest, EKG and laboratory work all look good. The patient felt better after breathing treatment. She will be placed on a Medrol taper. She will follow up with us as previously arranged. Discharge on 4 mg of Coumadin. Check INR on Wednesday. Keep INR 1.8-2.2. Please do not go above 2.2.
== END 2018-07-16 14:04 ==
LOC: ASU 07:56 → 3E 13:27

== ENCOUNTER 2019-08-01 02:43 | Inpatient (IN) ==
[2019-08-01] MEDS ORDERED: SODIUM CHLORIDE 0.9% 1000ML 1,000 ML IV ONE (03:09)
[2019-08-01] MEDS ORDERED: ONDANSETRON INJ 2 MG/ML 2 ML VIAL IV STA (03:09)
[2019-08-01] MEDS: fentaNYL citrate 100 MCG/2 ML VIAL IV PRN ×5 (03:41→22:20)
[2019-08-01 03:46] LABS: Basophils # (auto) 0.03 K/uL (0-0.2); Basophils % (auto) 0.2 %; Eosinophils # (auto) 0.01 K/uL (0-0.5); Eosinophils % (auto) 0.1 %; Hematocrit (blood only) 42.6 % (37-47); Hemoglobin 14.4 g/dL (12.0-16.0); Immature Granulocytes # (auto) 0.06 K/uL (0.00-0.02); Immature Granulocytes % (auto) 0.4 %; Lymphocytes # (auto) 1.01 K/uL (1.2-3.4); Lymphocytes % (auto) 6.6 %; Mean Corpuscular Hemoglobin 31.9 pg (25-34); Mean Corpuscular Hgb Conc 33.8 g/dL (32-36); Mean Corpuscular Volume 94.5 fL (80-100); Mean Platelet Volume 9.9 fL (7.4-10.4); Monocytes # (auto) 0.87 K/uL (0.11-0.59); Monocytes % (auto) 5.7 %; Neutrophils # (auto) 13.37 K/uL (1.4-6.5); Platelet Count 265 K/uL (130-400); RDW Coefficient of Variation 13.5 % (11.5-14.5); RDW Standard Deviation 46.6 fL (36.4-46.3); Red Blood Count 4.51 M/uL (4.2-5.4); White Blood Count 15.35 K/uL (4.8-10.8)
[2019-08-01] MEDS ORDERED: HydrALAZINE HCL 20 MG/ML VIAL IV STA ×2 (03:51→19:45)
[2019-08-01 04:03] LABS: Alanine Aminotransferase 22 U/L (12-78); Albumin Level 3.9 gm/dl (3.4-5.0); Aspartate Aminotransferase 21 U/L (15-37); BUN Creatinine Ratio 25.9 (10-20); Blood Urea Nitrogen 17 mg/dl (7-18); Carbon Dioxide 26 mmol/L (21-32); Chloride 97 mmol/L (98-107); Creatinine Clr Calc Pharmacy 55.5 ml/min; Est GFR (African American) 97.9; Est GFR (Non-African American) 84.4; Glucose 168 mg/dl (70-99); Lipase 83 U/L (73-393); Sodium 130 mmol/L (136-145)
[2019-08-01 04:08] LABS: Alkaline Phosphatase 82 U/L (45-117); Bilirubin,Total 0.5 mg/dl (0.2-1); Globulin 4.1 gm/dl (2.5-4.0); Troponin I < 0.015 ng/ml (0-0.045)
[2019-08-01 05:13] LABS: Appearance Urine Clear (Clear); Bilirubin Urine Negative (Negative); Blood Urine 1+ (Negative); Color Urine Yellow; Glucose Urine UA Negative (Negative); Ketones Urine Negative (Negative); Leukocyte Esterase Urine Negative (Negative); Nitrite Urine Positive (Negative); Specific Gravity Urine 1.025 (1.000-1.030); Urobilinogen Urine Negative (Negative); pH Urine 7.5 (4.5-7.5)
[2019-08-01 05:32] LABS: Protein Urine 2+ (Negative)
[2019-08-01 05:33] LABS: Sulfosalicylic Acid Urine Positive (Negative)
[2019-08-01 05:34] LABS: Bacteria Urine 3+ (Negative); Epithelial Cell Urine 0-5 /lpf (0-5)
[2019-08-01] MEDS ORDERED: ALBUT/IPRATROP 3MG/0.5MG NEB 3 ML VIAL NEB PRN (06:27)
--- NOTE | 2019-08-01 06:28 | History & Physical Report ---
Date of Service August 01, 2019 Assessment & Plan (1) Small bowel obstruction: Recurrent small bowel obstruction associated with abdominal wall hernias- NPO NSS + KCl 20 mEq 100 mils per hour. Zofran 4 mg IV every 6 hours as needed Zosyn 3.375 mg IV every 8 hours Acetaminophen 1 g IV every 8 hours PRN mild pain or temperature. Fentanyl 50 mcg IV every 1 hour as needed severe pain Consult general surgery Dr. Ag. Present on Admission?: Yes (2) Anxiety: Anxiety/depression- Ativan 0.25 mg IV every 6 hours PRN. Present on Admission?: Yes (3) Chronic obstructive asthma: Have duo nebs available every 2 hours as needed shortness of breath Present on Admission?: Yes (4) Hypertension: Hold lisinopril and metoprolol tartrate Present on Admission?: Yes (5) Seropositive rheumatoid arthritis: Seropositive RA/Sjogren's syndrome-while n.p.o., hold hydroxychloroquine and prednisone 10 mg p.o. every morning. Try to hold off on stress dose steroids due to SBO. Present on Admission?: Yes (6) Sjogrens syndrome: See above IV fluids as above. Present on Admission?: Yes (7) Duodenal ulcer: Placed on famotidine 20 mg IV every 12 hours Present on Admission?: Yes History of Present Illness Chief Complaint: The patient presents to the emergency department with acute onset of severe abdominal pain, nausea and vomiting. Primary Care Provider: Jamin Herring MD The patient is a 78-year-old female with a past medical history including bowel obstruction, protein calorie malnutrition, colostomy, pneumonia, hypertension, bright red blood per rectum, CVA, GI bleed, pelvic abscess, acute blood loss anemia, duodenal ulcer, seropositive rheumatoid arthritis, anxiety, cardiomyopathy, chronic obstructive asthma, hypertension, multiple abdominal hernias, intraoperative ureteral injury, long-term use of hydroxychloroquine, Sjogren's syndrome, history of colostomy reversal and asthma. The patient presents to the emergency department with acute onset of severe abdominal pain with nausea and vomiting. Work-up in the emergency department included laboratories with a WBC of 15.35 with left shift, chronic hyponatremia with sodium 130, glucose of 168. CT of abdomen and pelvis without contrast read as the following: Status post distal colon resection. Large left ventral hernia containing dilated left colon and dilated small bowel. Additional moderate ventral hernia containing dilated cecum and dilated small bowel. The upstream small bowel loops are dilated with air-fluid levels. The distal small bowel are decompressed. Findings are concerning for obstruction probably due to the ventral hernias. No free air or free fluid. Moderate atherosclerosis of the aorta. Multilevel degenerative changes of the spine. Bibasilar atelectasis. Possible punctate gallstone in the gallbladder. No evidence of cholecystitis. No biliary dilatation. Allergies Allergy/AdvReac Type Severity Reaction Status Date / Time codeine Allergy Mild DIZZINESS Verified 08/01/19 04:03 latex Allergy Mild RASH Verified 08/01/19 04:03 moxifloxacin Allergy Mild PAIN IN Verified 08/01/19 04:03 HEEL nickel Allergy Mild RASH ON Verified 08/01/19 04:03 EARS WITH EARRINGS WITH NICKEL Sulfa (Sulfonamide Allergy Mild Rash Verified 08/01/19 04:03 Antibiotics) banana Allergy Unknown RASH Verified 08/01/19 04:03 Cipro Allergy Unknown PASSED Verified 11/16/17 08:18 OUT, SEVERE RXN PER PATIENT ciprofloxacin Allergy Unknown PASSED Verified 08/01/19 04:03 OUT, SEVERE RXN PER PATIENT nut - unspecified Allergy Unknown HIVES Verified 08/01/19 04:03 fluconazole AdvReac Intermediate TACHYCARDIA, Verified 08/01/19 04:03 HAIR LOSS adhesive AdvReac Mild CONTACT Verified 08/01/19 04:03 DERMATITIS Home Medications Home Medications Medication Instructions Recorded Confirmed Type hydroxychloroquine [Plaquenil] 200 mg PO QAM 06/21/18 08/01/19 History magnesium oxide 400 mg PO QPM 06/21/18 08/01/19 History metoprolol succinate 12.5 mg PO BID 07/16/18 08/01/19 History albuterol sulfate 90 mcg/actuation 2 puffs INH Q6H PRN 12/13/18 08/01/19 History aerosol inhaler calcium citrate 250 mg PO QPM tab 12/13/18 08/01/19 History budesonide-formoterol HFA 160 2 puff INHALATION BID #3 inhaler 12/26/18 08/01/19 Rx mcg-4.5 mcg/actuation aerosol inhaler cannabidiol (CBD) extract 1 dose PO HS 04/25/19 08/01/19 History cholecalciferol (vitamin D3) 25 5,000 units PO QAM tab 04/25/19 08/01/19 History mcg (1,000 unit) tablet lisinopril 10 mg tablet 10 mg PO QAM #90 tab 04/25/19 08/01/19 Rx ipratropium-albuterol 3 ml NEB QIDR PRN 05/22/19 08/01/19 History prednisone 10 mg PO QAM 05/22/19 08/01/19 History docusate sodium [Colace] 100 mg PO DAILY 07/21/19 08/01/19 History multivitamin 1 tab PO QPM 07/21/19 08/01/19 History Past Med/Surg History Social History Preferred Language: [place] Communication Ability: Effective Hand Clipper Required: No Beliefs That Will Affect Care: None Current Living Situation: Alone Feels Safe at Home: Yes Smoking Status: Former smoker Tobacco Type: cigarettes ; Second Hand Exposure: Yes ; Hx Alcohol Use: Yes Alcohol type: wine Hx Substance Use: No Review of Systems Review of Systems: The patient denies chest pain, palpitations, shortness of breath, dyspnea on exertion, cough, lower extremity swelling, sore throat, fevers, chills, blood in urine or stool, dysuria, urinary frequency or urgency, lightheadedness, dizziness, headache, memory loss, loss of consciousness, rash, abnormal bruising or bleeding, imbalance, focal or generalized weakness, numbness or tingling in arms or legs, or night sweats. The review of systems is otherwise negative other than for that already noted above, and at least 10 systems have been reviewed. Physical Exam Physical Exam: The patient is awake, alert and oriented 3, normocephalic and atraumatic, lying in bed and in no acute distress. HEENT--PERRL, EOMI, mucous membranes and oropharynx dry. Neck--supple. No JVD. No bruits. Thyroid normal, trachea midline, no adenopathy. Heart--normal S1 and S2. No murmurs, rubs or gallops. Lungs--clear bilaterally, no respiratory distress, no accessory muscle use. Abdomen--decreased bowel sounds. Mildly distended. Generalized tenderness. Extremities--no cyanosis or clubbing. No edema. Dermatologic--normal skin turgor, normal color, no abnormal lymph nodes, no rash. Neurologic--cranial nerves II through XII grossly intact. Rheumatologic--normal range of motion. Psychiatric--depressed Results & Data Vital Signs (Past 12 Hours) Vital Signs Temp Pulse Resp BP Pulse Ox 08/01/19 05:00 60 17 158/70 H 94 08/01/19 04:30 58 L 17 161/71 H 93 08/01/19 04:00 58 L 14 182/79 H 91 08/01/19 03:58 59 L 19 191/79 H 89 L 08/01/19 03:31 67 18 179/104 H 97 08/01/19 03:09 96 08/01/19 03:02 61 22 212/99 H 95 08/01/19 02:50 97.7 F 64 16 240/108 H 96 Laboratory Results Laboratory Results WBC 15.35 K/uL (4.8-10.8) H 08/01/19 03:34 RBC 4.51 M/uL (4.2-5.4) 08/01/19 03:34 Hgb 14.4 g/dL (12.0-16.0) 08/01/19 03:34 Hct 42.6 % (37-47) 08/01/19 03:34 MCV 94.5 fL (80-100) 08/01/19 03:34 MCH 31.9 pg (25-34) 08/01/19 03:34 MCHC 33.8 g/dL (32-36) 08/01/19 03:34 RDW Std Deviation 46.6 fL (36.4-46.3) H 08/01/19 03:34 RDW Coeff of Chauncey 13.5 % (11.5-14.5) 08/01/19 03:34 Plt Count 265 K/uL (130-400) 08/01/19 03:34 MPV 9.9 fL (7.4-10.4) 08/01/19 03:34 Immature Gran % (Auto) 0.4 % 08/01/19 03:34 Neut % (Auto) 87.0 % 08/01/19 03:34 Lymph % (Auto) 6.6 % 08/01/19 03:34 [place]win % (Auto) 5.7 % 08/01/19 03:34 Eos % (Auto) 0.1 % 08/01/19 03:34 Baso % (Auto) 0.2 % 08/01/19 03:34 Immature Gran # (Auto) 0.06 K/uL (0.00-0.02) H 08/01/19 03:34 Neut # (Auto) 13.37 K/uL (1.4-6.5) H 08/01/19 03:34 Lymph # (Auto) 1.01 K/uL (1.2-3.4) L 08/01/19 03:34 Irwin # (Auto) 0.87 K/uL (0.11-0.59) H 08/01/19 03:34 Eos # (Auto) 0.01 K/uL (0-0.5) 08/01/19 03:34 Baso # (Auto) 0.03 K/uL (0-0.2) 08/01/19 03:34 Sodium 130 mmol/L (136-145) L 08/01/19 03:34 Potassium 4.0 mmol/L (3.5-5.1) 08/01/19 03:34 Chloride 97 mmol/L (98-107) L 08/01/19 03:34 Carbon Dioxide 26 mmol/L (21-32) 08/01/19 03:34 Anion Gap 7.0 (3-11) 08/01/19 03:34 BUN 17 mg/dl (7-18) 08/01/19 03:34 Creatinine 0.65 mg/dl (0.6-1.2) 08/01/19 03:34 Est Cr Clr Drug Dosing 55.5 ml/min 08/01/19 03:34 Est GFR ( Amer) 97.9 08/01/19 03:34 Est GFR (Non-Af Amer) 84.4 08/01/19 03:34 BUN/Creatinine Ratio 25.9 (10-20) H 08/01/19 03:34 Glucose 168 mg/dl (70-99) H 08/01/19 03:34 Lactate 1.7 mmol/L (0.4-2.0) 08/01/19 03:34 Calcium 10.0 mg/dl (8.5-10.1) 08/01/19 03:34 Total Bilirubin 0.5 mg/dl (0.2-1) 08/01/19 03:34 AST 21 U/L (15-37) 08/01/19 03:34 ALT 22 U/L (12-78) 08/01/19 03:34 Alkaline Phosphatase 82 U/L (45-117) 08/01/19 03:34 Troponin I < 0.015 ng/ml (0-0.045) 08/01/19 03:34 Total Protein 8.0 gm/dl (6.4-8.2) 08/01/19 03:34 Albumin 3.9 gm/dl (3.4-5.0) 08/01/19 03:34 Globulin 4.1 gm/dl (2.5-4.0) H 08/01/19 03:34 Albumin/Globulin Ratio 1.0 (0.9-2) 08/01/19 03:34 Lipase 83 U/L (73-393) 08/01/19 03:34 Urine Color Yellow 08/01/19 04:52 Urine Appearance Clear (Clear) 08/01/19 04:52 Urine pH 7.5 (4.5-7.5) 08/01/19 04:52 Ur Specific [place] 1.025 (1.000-1.030) 08/01/19 04:52 Urine Protein 2+ (Negative) H 08/01/19 04:52 Urine Glucose (UA) Negative (Negative) 08/01/19 04:52 Urine Ketones Negative (Negative) 08/01/19 04:52 Urine Blood 1+ (Negative) H 08/01/19 04:52 Urine Nitrite Positive (Negative) A 08/01/19 04:52 Urine Bilirubin Negative (Negative) 08/01/19 04:52 Urine Urobilinogen Negative (Negative) 08/01/19 04:52 Ur Leukocyte Esterase Negative (Negative) 08/01/19 04:52 Urine RBC 5-10 /hpf (0-4) H 08/01/19 04:52 Urine WBC 5-10 /hpf (0-5) H 08/01/19 04:52 Ur Epithelial Cells 0-5 /lpf (0-5) 08/01/19 04:52 Urine Bacteria 3+ (Negative) H 08/01/19 04:52 Diagnostic Findings [facility] Patient: PATTY LIANG (Female) : 38 Status: ER Date: 08/01/19 04:20 Room #: History: PAIN IN ABD, PRIOR SBO Slices: [id number] Priors: Tech: Chong Nieto @ [phone] Exams: CT ABDOMEN & PELVIS Without Contrast Accession Numbers: [id number] Preliminary Findings Only See Final Report For Complete Findings CT ABDOMEN & PELVIS Without Contrast: Status post distal colon resection. Large left ventral hernia containing dilated left colon and dilated small bowel . Additional moderate ventral hernia containing dilated cecum and dilated small bowel. The upstream small bowel loops are dilated with air-fluid levels. The distal small bowel are decompressed. Findings are concerning for obstruction probably due to the ventral hernias.. No free air or free fluid. Moderate atherosclerosis of the aorta. Multilevel degenerative changes of the spine. Bibasilar atelectasis. Possible punctate gallstone in the gallbladder. No evidence of cholecystitis. No biliary dilatation. Radiologist: Gypsy Plasencia MD Study ready at 04:24 and initial results transmitted at 04:57 *This report constitutes a preliminary interpretation only. Non-acute findings felt to be unrelated to the clinical presentation may not be discussed in this report. The study will be interpreted and a final report will be generated by the local Radiologist the following shift. To reach the hospital radiology department call [phone]. If a discrepancy is found between the preliminary and final interpretations of this study, please notify us via our Client Portal at [email or web address] under QA Exams.You can also fax this report with a description of the discrepancy, or include the final report, to our daytime fax number [phone].If faxing, please indicate the severity of discrepancy using one of the following categories: [ ] 1 - Agree/Informational [ ] 2 - Unlikely to Affect Management [ ] 3 - Possible Eventual Change of Management [ ] 4 - Probable Immediate Change of Management For all other patient related information, please fax us at [phone]. [id number] Code Status & VTE Plan Code Status Full code VTE Prophylaxis Plan VTE Prophylaxis will be ordered: Yes PG Care Time/CCT Total # of Minutes Spent Total Time Spent with Patient: Total time spent is greater than 50% in coordination of care (as documented) at patient's floor/unit and/or counseling patient: Coding Level of Care Code 82380 Initial Inpt Care Lvl 3 Diagnoses Small bowel obstruction K56.609 Anxiety F41.9 Chronic obstructive asthma J44.9 Hypertension I10 Seropositive rheumatoid arthritis M05.9 Sjogrens syndrome M35.00 Duodenal ulcer K26.9
--- NOTE | 2019-08-01 06:57 | Emergency Department Note ---
History of Present Illness General Chief complaint: Abdominal Pain Stated complaint: ABDOMINAL PAIN Source: patient Mode of arrival: ambulatory Limitations: no limitations History of Present Illness Provider complaint: abdominal pain Onset (ago): hour(s) 4 Location: abdomen Radiation: non-radiation Severity: moderate Pain Consistency: + colicky Maximum Pain Intensity: 10 Quality: + aching Relieved By: + none Exacerbated By: + eating Treatments prior to arrival: none This patient is a 78-year-old female who presents emergency department with complaints of abdominal pain and bloating. Patient states she has a complicated abdominal history with 2 ventral hernias and small bowel obstruction. Patient states her pain began about 9 PM after eating vegetables for dinner. She states the pain is identical to her previous small bowel obstruction. She "tried to take care of it at home" but could not tolerate the pain any longer. Patient is anxious stating she does not want to be transferred to [facility], she does not want surgery nor does she want an NG tube. She simply cannot tolerate the pain. Patient denies any recent vomiting or fever. She denies adan st pain or cough. Home Medications Home Medications Medication Instructions Recorded Confirmed Type hydroxychloroquine [Plaquenil] 200 mg PO QAM 06/21/18 08/01/19 History magnesium oxide 400 mg PO QPM 06/21/18 08/01/19 History metoprolol succinate 12.5 mg PO BID 07/16/18 08/01/19 History albuterol sulfate 90 mcg/actuation 2 puffs INH Q6H PRN 12/13/18 08/01/19 History aerosol inhaler calcium citrate 250 mg PO QPM tab 12/13/18 08/01/19 History budesonide-formoterol HFA 160 2 puff INHALATION BID #3 inhaler 12/26/18 08/01/19 Rx mcg-4.5 mcg/actuation aerosol inhaler cannabidiol (CBD) extract 1 dose PO HS 04/25/19 08/01/19 History cholecalciferol (vitamin D3) 25 5,000 units PO QAM tab 04/25/19 08/01/19 History mcg (1,000 unit) tablet lisinopril 10 mg tablet 10 mg PO QAM #90 tab 04/25/19 08/01/19 Rx ipratropium-albuterol 3 ml NEB QIDR PRN 05/22/19 08/01/19 History prednisone 10 mg PO QAM 05/22/19 08/01/19 History docusate sodium [Colace] 100 mg PO DAILY 07/21/19 08/01/19 History multivitamin 1 tab PO QPM 07/21/19 08/01/19 History Allergies Allergy/AdvReac Type Severity Reaction Status Date / Time codeine Allergy Mild DIZZINESS Verified 08/01/19 04:03 latex Allergy Mild RASH Verified 08/01/19 04:03 moxifloxacin Allergy Mild PAIN IN Verified 08/01/19 04:03 HEEL nickel Allergy Mild RASH ON Verified 08/01/19 04:03 EARS WITH EARRINGS WITH NICKEL Sulfa (Sulfonamide Allergy Mild Rash Verified 08/01/19 04:03 Antibiotics) banana Allergy Unknown RASH Verified 08/01/19 04:03 Cipro Allergy Unknown PASSED Verified 11/16/17 08:18 OUT, SEVERE RXN PER PATIENT ciprofloxacin Allergy Unknown PASSED Verified 08/01/19 04:03 OUT, SEVERE RXN PER PATIENT nut - unspecified Allergy Unknown HIVES Verified 08/01/19 04:03 fluconazole AdvReac Intermediate TACHYCARDIA, Verified 08/01/19 04:03 HAIR LOSS adhesive AdvReac Mild CONTACT Verified 08/01/19 04:03 DERMATITIS Past Med/Surg History Medical History (Updated 08/01/19 @ 06:53 by Rhonda Balnk MD) Anxiety (Chronic) Asthma (Chronic) Atopic dermatitis (Chronic) Bronchitis (Resolved) RESOLVED Cardiomyopathy (Chronic) Chronic obstructive asthma (Chronic) LAST FLARE UP OVER 1 YR AGO > RARE RES. INH USE Chronic systolic CHF (congestive heart failure) CONTROLLED PER PATIENT > FOLLOWS DR. 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 Stroke like symptoms. 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 ([facility]) Sjogrens syndrome (Chronic) SOB (shortness of breath) on exertion Surgical History (Updated 08/01/19 @ 06:52 by Rhonda Blank MD) History of colonoscopy History of colostomy reversal (Acute) ETT#7, Glidescope #3, Grade 1 View - attempt x 1, atraumatic > REVERSED History of esophagogastroduodenoscopy (EGD) History of partial colectomy History of tonsillectomy History of total knee arthroplasty RIGHT Hx of right heart catheterization 2018 [facility] > NO STENTS Status post right foot surgery 2012 [facility] Ventral hernia with bowel obstruction (Resolved) Social History Preferred Language: Luxembourgish Communication Ability: Effective Metal Tile Lather Required: No Beliefs That Will Affect Care: None Current Living Situation: Alone Feels Safe at Home: Yes Smoking Status: Former smoker Tobacco Type: cigarettes ; Second Hand Exposure: Yes ; Hx Alcohol Use: Yes Alcohol type: wine Hx Substance Use: No Review of Systems See HPI for pertinent positives & negatives. and A total of 10 systems reviewed and were otherwise negative Physical Exam Vital Signs Vital Signs - 24 hr 08/01/19 02:50 08/01/19 03:02 08/01/19 03:09 Temperature 36.5 C Temperature Source Oral Pulse Rate 64 61 Pulse Rate [Right Foot] Pulse Rate from SpO2 Sensor 60 Pulse Rhythm Regular Pulse Strength Normal Respiratory Rate 16 22 Respiratory Effort / Characteristics Non-Labored Respiratory Depth Normal Respiratory Pattern Regular Blood Pressure 240/108 H 212/99 H Blood Pressure [Right Arm] Blood Pressure Mean 152 146 Blood Pressure Mean [Right Arm] Blood Pressure Position Lying Pulse Oximetry 96 95 96 Oxygen Delivery Method Room Air Room Air Oxygen Flow Rate Sepsis Recent Fever Within 48 Hours No Sepsis Action Taken by Nursing No Action Required 08/01/19 03:31 08/01/19 03:58 08/01/19 04:00 Temperature Temperature Source Pulse Rate 67 59 L 58 L Pulse Rate [Right Foot] Pulse Rate from SpO2 Sensor 66 58 L 58 L Pulse Rhythm Pulse Strength Respiratory Rate 18 19 14 Respiratory Effort / Characteristics Respiratory Depth Respiratory Pattern Blood Pressure 179/104 H 191/79 H 182/79 H Blood Pressure [Right Arm] Blood Pressure Mean 141 109 111 Blood Pressure Mean [Right Arm] Blood Pressure Position Pulse Oximetry 97 89 L 91 Oxygen Delivery Method Oxygen Flow Rate Sepsis Recent Fever Within 48 Hours Sepsis Action Taken by Nursing 08/01/19 04:30 08/01/19 05:00 08/01/19 05:30 Temperature Temperature Source Pulse Rate 58 L 60 74 Pulse Rate [Right Foot] Pulse Rate from SpO2 Sensor 59 L 59 L 67 Pulse Rhythm Pulse Strength Respiratory Rate 17 17 15 Respiratory Effort / Characteristics Respiratory Depth Respiratory Pattern Blood Pressure 161/71 H 158/70 H 186/73 H Blood Pressure [Right Arm] Blood Pressure Mean 87 98 110 Blood Pressure Mean [Right Arm] Blood Pressure Position Pulse Oximetry 93 94 97 Oxygen Delivery Method Oxygen Flow Rate Sepsis Recent Fever Within 48 Hours Sepsis Action Taken by Nursing 08/01/19 06:00 08/01/19 06:44 08/01/19 07:20 Temperature Temperature Source Pulse Rate 67 68 Pulse Rate [Right Foot] 80 Pulse Rate from SpO2 Sensor 61 Pulse Rhythm Pulse Strength Respiratory Rate 22 16 20 Respiratory Effort / Characteristics Non-Labored Respiratory Depth Normal Respiratory Pattern Blood Pressure 165/108 H 149/78 H Blood Pressure [Right Arm] 144/68 H Blood Pressure Mean 120 101 Blood Pressure Mean [Right Arm] 93 Blood Pressure Position Pulse Oximetry 96 97 97 Oxygen Delivery Method Nasal Cannula Room Air Oxygen Flow Rate 1 Sepsis Recent Fever Within 48 Hours Sepsis Action Taken by Nursing Vital signs reviewed. General: Chronically ill-appearing 78 yo female, in no significant distress. HEENT: No scleral icterus, PERRLA, neck supple. Atraumatic. Cardiovascular: Regular rate and rhythm, no extra sounds. Pulmonary: Clear to auscultation bilaterally, normal work of breathing. Abdomen: Soft, distended, positive tympany, somewhat tender to the left greater than right lower quadrant, positive bowel sounds. Musculoskeletal: Atraumatic, no peripheral edema. Neurologic: Patient awake alert and oriented x 3 Skin: Warm, dry, no rash Course Administered Medications Fentanyl Citrate (Fentanyl Citrate) 50 mcg IV Q1H PRN PRN Reason: Pain Stop: 08/15/19 03:08 Last Admin: 08/01/19 06:03 Dose: 50 mcg Documented by: [id number] Admin: 08/01/19 03:41 Dose: 50 mcg Documented by: [id number] Sodium Chloride (Nss 1000ml) 1,000 mls @ 100 mls/hr IV .Q10H ONE Stop: 08/01/19 13:08 Last Admin: 08/01/19 03:55 Dose: 100 mls/hr Documented by: [id number] Discontinued Medications Famotidine (Pepcid 20mg Iv Push) Confirm Administered Dose [facility] Stop: 08/01/19 07:18 Last Admin: 08/01/19 07:21 Dose: 20 mg Documented by: [id number] Ondansetron HCl (Zofran) 4 mg IV NOW STA Stop: 08/01/19 03:10 Last Admin: 08/01/19 03:41 Dose: 4 mg Documented by: [id number] Medical Decision Making Differential Diagnosis Differential diagnosis: Cholelithiasis, cholecystitis, bowel obstruction, diverticulitis, pancreatitis, renal colic, appendicitis inflammatory bowel disease, gastritis, and peptic/gastric ulcer disease. Medical Records Attestation: I reviewed the patient's medical records. Home Medications Current Medication List: was personally reviewed by me Laboratory Data Attestation: I reviewed the patient's lab results. Result diagrams: 08/01/19 03:34 08/01/19 03:34 Lab Results 08/01/19 08/01/19 08/01/19 Range/Units 03:34 03:34 03:34 WBC 15.35 H (4.8-10.8) K/uL RBC 4.51 (4.2-5.4) M/uL Hgb 14.4 (12.0-16.0) g/dL Hct 42.6 (37-47) % MCV 94.5 (80-100) fL MCH 31.9 (25-34) pg MCHC 33.8 (32-36) g/dL RDW Std Deviation 46.6 H (36.4-46.3) fL RDW Coeff of Chauncey 13.5 (11.5-14.5) % Plt Count 265 (130-400) K/uL MPV 9.9 (7.4-10.4) fL Immature Gran % (Auto) 0.4 % Neut % (Auto) 87.0 % Lymph % (Auto) 6.6 % Christian % (Auto) 5.7 % Eos % (Auto) 0.1 % Baso % (Auto) 0.2 % Immature Gran # (Auto) 0.06 H (0.00-0.02) K/uL Neut # (Auto) 13.37 H (1.4-6.5) K/uL Lymph # (Auto) 1.01 L (1.2-3.4) K/uL Christian # (Auto) 0.87 H (0.11-0.59) K/uL Eos # (Auto) 0.01 (0-0.5) K/uL Baso # (Auto) 0.03 (0-0.2) K/uL Sodium 130 L (136-145) mmol/L Potassium 4.0 (3.5-5.1) mmol/L Chloride 97 L (98-107) mmol/L Carbon Dioxide 26 (21-32) mmol/L Anion Gap 7.0 (3-11) BUN 17 (7-18) mg/dl Creatinine 0.65 (0.6-1.2) mg/dl Est Cr Clr Drug Dosing 55.5 ml/min Est GFR ( Amer) 97.9 Est GFR (Non-Af Amer) 84.4 BUN/Creatinine Ratio 25.9 H (10-20) Glucose 168 H (70-99) mg/dl Lactate 1.7 (0.4-2.0) mmol/L Calcium 10.0 (8.5-10.1) mg/dl Total Bilirubin 0.5 (0.2-1) mg/dl AST 21 (15-37) U/L ALT 22 (12-78) U/L Alkaline Phosphatase 82 (45-117) U/L Troponin I < 0.015 (0-0.045) ng/ml Total Protein 8.0 (6.4-8.2) gm/dl Albumin 3.9 (3.4-5.0) gm/dl Globulin 4.1 H (2.5-4.0) gm/dl Albumin/Globulin Ratio 1.0 (0.9-2) Lipase 83 (73-393) U/L Urine Color Urine Appearance (Clear) Urine pH (4.5-7.5) Ur Specific [place] (1.000-1.030) Urine Protein (Negative) Urine Glucose (UA) (Negative) Urine Ketones (Negative) Urine Blood (Negative) Urine Nitrite (Negative) Urine Bilirubin (Negative) Urine Urobilinogen (Negative) Ur Leukocyte Esterase (Negative) Urine RBC (0-4) /hpf Urine WBC (0-5) /hpf Ur Epithelial Cells (0-5) /lpf Urine Bacteria (Negative) 03/24/20 Range/Units 04:52 WBC (4.8-10.8) K/uL RBC (4.2-5.4) M/uL Hgb (12.0-16.0) g/dL Hct (37-47) % MCV (80-100) fL MCH (25-34) pg MCHC (32-36) g/dL RDW Std Deviation (36.4-46.3) fL RDW Coeff of Chauncey (11.5-14.5) % Plt Count (130-400) K/uL MPV (7.4-10.4) fL Immature Gran % (Auto) % Neut % (Auto) % Lymph % (Auto) % Christian % (Auto) % Eos % (Auto) % Baso % (Auto) % Immature Gran # (Auto) (0.00-0.02) K/uL Neut # (Auto) (1.4-6.5) K/uL Lymph # (Auto) (1.2-3.4) K/uL Christian # (Auto) (0.11-0.59) K/uL Eos # (Auto) (0-0.5) K/uL Baso # (Auto) (0-0.2) K/uL Sodium (136-145) mmol/L Potassium (3.5-5.1) mmol/L Chloride (98-107) mmol/L Carbon Dioxide (21-32) mmol/L Anion Gap (3-11) BUN (7-18) mg/dl Creatinine (0.6-1.2) mg/dl Est Cr Clr Drug Dosing ml/min Est GFR ( Amer) Est GFR (Non-Af Amer) BUN/Creatinine Ratio (10-20) Glucose (70-99) mg/dl Lactate (0.4-2.0) mmol/L Calcium (8.5-10.1) mg/dl Total Bilirubin (0.2-1) mg/dl AST (15-37) U/L ALT (12-78) U/L Alkaline Phosphatase (45-117) U/L Troponin I (0-0.045) ng/ml Total Protein (6.4-8.2) gm/dl Albumin (3.4-5.0) gm/dl Globulin (2.5-4.0) gm/dl Albumin/Globulin Ratio (0.9-2) Lipase (73-393) U/L Urine Color Yellow Urine Appearance Clear (Clear) Urine pH 7.5 (4.5-7.5) Ur Specific [place] 1.025 (1.000-1.030) Urine Protein 2+ H (Negative) Urine Glucose (UA) Negative (Negative) Urine Ketones Negative (Negative) Urine Blood 1+ H (Negative) Urine Nitrite Positive A (Negative) Urine Bilirubin Negative (Negative) Urine Urobilinogen Negative (Negative) Ur Leukocyte Esterase Negative (Negative) Urine RBC 5-10 H (0-4) /hpf Urine WBC 5-10 H (0-5) /hpf Ur Epithelial Cells 0-5 (0-5) /lpf Urine Bacteria 3+ H (Negative) Imaging Data Attestation: I personally reviewed and interpreted this imaging study as follows: Radiologist's Impression: CT scan of the abdomen and pelvis without contrast: Status post distal colon resection. Large left ventral hernia containing dilated left colon and dilated small bowel. Additional moderate ventral hernia containing dilated cecum and dilated small bowel. The upstream small bowel loops are dilated with air-fluid levels. The distal small bowel are decompressed. Findings are concerning for obstruction probably due to ventral hernias. No free air or free fluid. Moderate atherosclerosis of the aorta. Multilevel degenerative changes of the spine. Bibasilar atelectasis. Possible punctate gallstone within the gallbladder no evidence of cholecystitis. No biliary dilatation. Radiologist: Gypsy Plasencia MD [id number] ECG Data Attestation: I personally reviewed and interpreted this ECG as follows: Indication: + abdominal pain Rate (beats per minute): 71 Rhythm: + normal sinus ECG Intervals/blocks: + Prolonged QT ECG Stephen: + Normal ECG ST segments: + Nonspecific ST abnormalities ECG Findings: + PACs; no PVCs Blood Pressure Blood Pressure Findings: Elevated blood pressure Blood Pressure Disposition: further management by hospitalist DEDRICK Narrative This patient was evaluated and appeared to be in no distress. IV access was obtained and laboratory work was drawn. Patient was medicated with IV fentanyl and Zofran for her discomfort. Abdominal CT scan was obtained and is significant for SBO as noted above in the ventral hernia. Patient was informed of the findings. She states she had previously been transferred to [facility] which she is not interested in again today. I proposed NG tube and n.p.o. status for IV hydration, patient also was not happy with this idea. Patient also is not interested in having surgery as she is "not a candidate." Patient states her pain has improved. She is willing to be evaluated by the hospitalist, Dr. Fisher. Impression & Plan Ventral hernia with bowel obstruction Discharge Plan Visit Data Chief Complaint: Abdominal Pain Stated Complaint: ABDOMINAL PAIN ED Provider: Rhonda Blank Discharge Problem: Ventral hernia with bowel obstruction Discharge Instructions Interventions: ED Discharge Assessment Last Done: 08/01/19 07:35 Forms Stand Alone Forms: [facility]?rKart Prescriptions Prescriptions: No Action Symbicort 160-4.5 mcg/actuation HFA aerosol inhaler 2 puff Inhalation BID Qty: 3 RF: 3 calcium citrate 250 mg calcium tablet 250 mg PO QPM RF: 0 albuterol sulfate [Ventolin HFA] 90 mcg/actuation HFA aerosol inhaler 2 puffs INH Q6H PRN (Reason: Shortness Of Breath) RF: 0 cannabidiol (CBD) extract 1 dose PO HS RF: 0 lisinopril 10 mg tablet 10 mg PO QAM Qty: 90 RF: 3 ipratropium-albuterol 0.5 mg-3 mg(2.5 mg base)/3 mL solution for nebulization 3 ml NEB QIDR PRN (Reason: Wheezing) RF: 0 prednisone 5 mg tablet 10 mg PO QAM RF: 0 hydroxychloroquine [Plaquenil] 200 mg Tablet 200 mg PO QAM RF: 0 magnesium oxide 400 mg Capsule 400 mg PO QPM RF: 0 metoprolol succinate 25 mg tablet extended release 24 hr 12.5 mg PO BID RF: 0 cholecalciferol (vitamin D3) [Vitamin D3] 25 mcg (1,000 unit) tablet 5,000 units PO QAM RF: 0 docusate sodium [Colace] 100 mg Capsule 100 mg PO DAILY RF: 0 multivitamin Tablet 1 tab PO QPM RF: 0 Referrals Referrals: Jamin Herring MD [Primary Care Provider] -
[2019-08-01] MEDS ORDERED: FAMOTIDINE 20MG/5ML IV PUSH IV ONE (07:17)
--- NOTE | 2019-08-01 07:26 | CT Scan Report ---
CT abd pelvis wo con CLINICAL HISTORY: 78 years-old Female presenting with SBO. TECHNIQUE: Multidetector CT of the abdomen and pelvis was performed without the use of intravenous co ntrast. IV contrast: None. One or more dose lowering techniques were used consistent with the princip les of ALARA (as low as reasonably achievable), including automatic exposure control, mA or kV adjust ment to individual patient size, and/or use of iterative reconstruction. COMPARISON: 05/21/2018. CT DOSE (mGy.cm): The estimated cumulative dose is 244.80 mGy.cm. FINDINGS: Baggage Screener topogram: Unremarkable. Lung bases: Multichamber enlargement of the heart. Coronary artery calcification. No pericardial or p leural effusion. Bandlike and dependent consolidation at the lung bases likely atelectasis. Digital Artist ural distortion at the left lung base. Liver: Normal morphology. Normal density. A fat and the liver containing Bochdalek hernia may be pres ent on the right versus diaphragmatic eventration. Biliary: No gross biliary ductal dilatation allowing for noncontrast technique. Gallbladder contains gallstones. Pancreas: Mild parenchymal atrophy. Spleen: Normal noncontrast appearance. Adrenal glands: Normal noncontrast appearance. Kidneys and ureters: Normal noncontrast appearance. No nephrolithiasis. No hydronephrosis. Normal ure ters. Bladder: Mildly distended urinary bladder. Pelvic organs: Not well delineated. Bowel: Postsurgical changes of the upper rectum with a presumed colocolonic anastomosis. The bowel is not well assessed without intravenous or oral contrast. Mild stool burden throughout normal caliber colon. Small bowel is significantly dilated and fluid-filled. There is no proximal small bowel disten tion. Interloop fluid and trace perienteric edema is evident in the central and right abdomen. The te rminal ileum is located within the right lower quadrant ventral hernia. The terminal ileum is decompr essed. A portion of small bowel is also contained within the larger left mid ventral hernia closed lo op obstructions of small bowel are not excluded. Peritoneal cavity: Trace interloop fluid as mentioned. No free intraperitoneal gas. Lymph nodes: No gross lymphadenopathy allowing for noncontrast technique. Vasculature: Atherosclerosis of the normal caliber abdominal aorta. Abdominal wall: Large left mid abdominal ventral hernia with a neck measuring 6.9 cm in diameter in c omparison to a maximal hernia sac diameter of 19 cm. This contains both small and large bowel. Small bowel is dilated up to 4 cm within this hernia sac. A second slightly smaller ventral hernias noted i n the right lower quadrant/right mid abdomen close or to midline. This hernia sac has a neck measurin g 4.4 cm in comparison to a maximal sac diameter of 8.3 cm. This may be multilobular with a short seg ment of small bowel along the inferior margin with significant wall thickening and surrounding fat in filtration (series 3 image 282). Musculoskeletal: Degenerative changes of the spine. IMPRESSION: 1. Findings consistent with small bowel obstruction, which appears complete or high-grade partial. T his appearance is similar though worsened from prior suggesting an acute on chronic component. Lack o f intravenous and oral contrast limit evaluation. Given the decompressed proximal and distal small luis wel, a closed loop obstruction cannot be excluded. The obstruction could be related to the presence o f the large ventral hernias. Surgical consultation is necessary. The report will be called/faxed according to standard departmental protocol. ACT 112: Negative or not required by law. Electronically signed by: Meek Julien M.D. 08/01/2019 7:25 AM
[2019-08-01] MEDS ORDERED: FAMOTIDINE 20 MG in SYRINGE 3 ML IV ONE (07:30)
[2019-08-01] MEDS ORDERED: ACETAMINOPHEN 1,000 MG/100 ML VIAL IV PRN (07:54)
--- NOTE | 2019-08-01 08:13 | Surgery Consultation ---
Date of Consultation August 01, 2019 Assessment & Plan (1) Small bowel obstruction: This is a 78y F with PMH of exlap with creation of Stanton's in 2015 with reversal of ostomy 3 months after, development of ventral hernia's, h/o GI bleed, CVA, CHF, RA, cardiomyopathy, Sjogren's who presents to the [facility] ED on 07/31 with complaints of abdominal pain. Workup in the ED revealed findings concerning for small bowel obstruction. Patient has had large ventral hernias now for >1year. She has been evaluated by both MNP and [facility] surgery here in the past and agreed that she is not a surgical candidate at our facility and if needed would be appropriate for transfer to a tertiary center to fix these, due to loss of abdominal domain and her medical comorbidities. At this time patient does not want an NGT. I discussed with the patient that is she should developed worsening abd pain and nausea/vomiting she may greatly benefit from one and she seems to understand. We will follow the patient and for now agree to keep her NPO with IVF. Supervising Physician Co-Signing Physician Notes Patient seen and examined, labs and imaging reviewed, agree with above. 78-year-old female with multiple medical problems including RA and Sjogren's syndrome and known large incisional hernias with significant loss of abdominal domain, presented with worsening abdominal pain and concern for small bowel obstruction. Upon previous evaluations by both myself and other surgeons here at [facility] and with the [facility] system she has been deemed to be a poor surgical candidate for our facility. She declined transfer to a tertiary facility and was admitted to the medicine service. She also declined an NG tube. On exam she says she is feeling slightly better and has passed some flatus. Last bowel movement was yesterday. Her abdomen is mildly distended and she has a very large left sided abdominal hernia with significant loss of abdominal domain. This is relatively stable from my examination of her in 2018. She has a right sided incisional hernia but is relatively stable but was tender. I was able to reduce this hernia. This is also the site on the CT scan where there is concern for obstruction. We had a long discussion with the patient, and currently she does not desire any surgical therapy or an NG tube. She understands that if she would need any type of abdominal reconstruction she would need to go to a tertiary center due to loss of abdominal domain and significant medical comorbidities. At this point she would like to discuss her CODE STATUS with her admitting team and I think this is reasonable. No surgical intervention at this time, surgery will follow peripherally. History of Present Illness Attending Physician: Riya Kincaid MD History of Present Illness This is a 78y F with PMH of exlap with creation of Stanton's in 2014 with reversal of ostomy 3 months after, development of ventral hernia's, h/o GI bleed, CVA, CHF, RA, cardiomyopathy, Sjogren's who presents to the [facility] ED on 07/31 with complaints of abdominal pain. Patient states she ate dinner last night which consisted of chicken breast and roasted veggies. Around 9pm she started developing some abdominal pain she thought were gas pains and took gas-ex. She tried to sleep, but was up multiple times throughout the night. The pain continued to worsen and she developed dry-heaves and came to the ED for further evaluation. In the ED a CT a/p was performed, although limited because no IV or PO contrast administered due to difficult IV access, which revealed findings consistent with small bowel obstruction, which appears complete or high-grade partial. The obstruction could be related to the presence of the large ventral hernias. Patient's WBC 15.3 and HR 60's. She said her pain was 12/10 when she came in, but is improved some after pain medications. Her last BM was yesterday AM, soft and formed. She endorsed + sweats and dry heaves. She denies any episodes of emesis, chest pain, shortness of breath, fevers/chills. She says this is her 2nd incident of bowel obstruction. She believes her hernias are similar in size, but are more sore to touch. Her left sided hernia developed about 1.5 years after her surgery in 2014 and the right sided one developed over the last year. Allergies Allergy/AdvReac Type Severity Reaction Status Date / Time codeine Allergy Mild DIZZINESS Verified 08/01/19 04:03 latex Allergy Mild RASH Verified 08/01/19 04:03 moxifloxacin Allergy Mild PAIN IN Verified 08/01/19 04:03 HEEL nickel Allergy Mild RASH ON Verified 08/01/19 04:03 EARS WITH EARRINGS WITH NICKEL Sulfa (Sulfonamide Allergy Mild Rash Verified 08/01/19 04:03 Antibiotics) banana Allergy Unknown RASH Verified 08/01/19 04:03 Cipro Allergy Unknown PASSED Verified 11/16/17 08:18 OUT, SEVERE RXN PER PATIENT ciprofloxacin Allergy Unknown PASSED Verified 08/01/19 04:03 OUT, SEVERE RXN PER PATIENT nut - unspecified Allergy Unknown HIVES Verified 08/01/19 04:03 fluconazole AdvReac Intermediate TACHYCARDIA, Verified 08/01/19 04:03 HAIR LOSS adhesive AdvReac Mild CONTACT Verified 08/01/19 04:03 DERMATITIS Home Medications Home Medications Medication Instructions Recorded Confirmed Type hydroxychloroquine [Plaquenil] 200 mg PO QAM 06/21/18 08/01/19 History magnesium oxide 400 mg PO QPM 06/21/18 08/01/19 History metoprolol succinate 12.5 mg PO BID 07/16/18 08/01/19 History albuterol sulfate 90 mcg/actuation 2 puffs INH Q6H PRN 12/13/18 08/01/19 History aerosol inhaler calcium citrate 250 mg PO QPM tab 12/13/18 08/01/19 History budesonide-formoterol HFA 160 2 puff INHALATION BID #3 inhaler 12/26/18 08/01/19 Rx mcg-4.5 mcg/actuation aerosol inhaler cannabidiol (CBD) extract 1 dose PO HS 04/25/19 08/01/19 History cholecalciferol (vitamin D3) 25 5,000 units PO QAM tab 04/25/19 08/01/19 History mcg (1,000 unit) tablet lisinopril 10 mg tablet 10 mg PO QAM #90 tab 04/25/19 08/01/19 Rx ipratropium-albuterol 3 ml NEB QIDR PRN 05/22/19 08/01/19 History prednisone 10 mg PO QAM 05/22/19 08/01/19 History docusate sodium [Colace] 100 mg PO DAILY 07/21/19 08/01/19 History multivitamin 1 tab PO QPM 07/21/19 08/01/19 History Patient History Medical History Anxiety (Chronic) Asthma (Chronic) Atopic dermatitis (Chronic) Bronchitis (Resolved) RESOLVED Cardiomyopathy (Chronic) Chronic obstructive asthma (Chronic) LAST FLARE UP OVER 1 YR AGO > RARE RES. INH USE Chronic systolic CHF (congestive heart failure) CONTROLLED PER PATIENT > FOLLOWS DR. 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 Stroke like symptoms. 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 ([facility]) Sjogrens syndrome (Chronic) SOB (shortness of breath) on exertion Surgical History History of colonoscopy History of colostomy reversal (Acute) ETT#7, Glidescope #3, Grade 1 View - attempt x 1, atraumatic > REVERSED History of esophagogastroduodenoscopy (EGD) History of partial colectomy History of tonsillectomy History of total knee arthroplasty RIGHT Hx of right heart catheterization 2018 [facility] > NO STENTS Status post right foot surgery 2012 AT [place] Ventral hernia with bowel obstruction (Resolved) Family History Other Family history non-contributory History of section Ventral hernia with bowel obstruction Social History Preferred Language: Bahamian Communication Ability: Effective Beauty Sales Advisor Required: No Beliefs That Will Affect Care: None Current Living Situation: Alone Feels Safe at Home: Yes Smoking Status: Former smoker Tobacco Type: cigarettes ; Second Hand Exposure: Yes ; Hx Alcohol Use: Yes Alcohol type: wine Hx Substance Use: No Review of Systems Constitutional: + sweats; no fever and no chills Respiratory: no shortness of breath Cardiovascular: no chest pain Gastrointestinal: + abdominal pain and + nausea; no vomiting dry-heaves Physical Exam Physical Exam: awake/alert Constitutional: no acute distress Respiratory: saturating well on supplemental nasal cannula Gastrointestinal (Abdomen): Inspection/Auscultation: + abdomen distended (mild) and + visible herniation (left and right sided abdominal hernias) Percussion/Palpation: + abdomen tender (abdominal hernias mildly ttp) and abdomen soft Results & Data Vital Signs (Past 12 Hours) Vital Signs Temp Pulse Pulse Resp BP BP Pulse Ox 08/01/19 07:54 60 08/01/19 07:50 36.7 C 62 18 188/66 H 99 08/01/19 07:20 80 20 144/68 H 97 08/01/19 06:44 68 16 149/78 H 97 08/01/19 06:00 67 22 165/108 H 96 08/01/19 05:30 74 15 186/73 H 97 08/01/19 05:00 60 17 158/70 H 94 08/01/19 04:30 58 L 17 161/71 H 93 08/01/19 04:00 58 L 14 182/79 H 91 08/01/19 03:58 59 L 19 191/79 H 89 L 08/01/19 03:31 67 18 179/104 H 97 08/01/19 03:09 96 08/01/19 03:02 61 22 212/99 H 95 08/01/19 02:50 36.5 C 64 16 240/[address] abd pelvis wo con CLINICAL HISTORY: 78 years-old Female presenting with SBO. TECHNIQUE: Multidetector CT of the abdomen and pelvis was performed without the use of intravenous contrast. IV contrast: None. One or more dose lowering techniques were used consistent with the principles of ALARA (as low as reasonably achievable), including automatic exposure control, mA or kV adjustment to individual patient size, and/or use of iterative reconstruction. COMPARISON: 05/21/2018. CT DOSE (mGy.cm): The estimated cumulative dose is 244.80 mGy.cm. FINDINGS: Cull Grader topogram: Unremarkable. Lung bases: Multichamber enlargement of the heart. Coronary artery calcification. No pericardial or pleural effusion. Bandlike and dependent consolidation at the lung bases likely atelectasis. Architectural distortion at the left lung base. Liver: Normal morphology. Normal density. A fat and the liver containing Bochdalek hernia may be present on the right versus diaphragmatic eventration. Biliary: No gross biliary ductal dilatation allowing for noncontrast technique. Gallbladder contains gallstones. Pancreas: Mild parenchymal atrophy. Spleen: Normal noncontrast appearance. Adrenal glands: Normal noncontrast appearance. Kidneys and ureters: Normal noncontrast appearance. No nephrolithiasis. No hydronephrosis. Normal ureters. Bladder: Mildly distended urinary bladder. Pelvic organs: Not well delineated. Bowel: Postsurgical changes of the upper rectum with a presumed colocolonic anastomosis. The bowel is not well assessed without intravenous or oral con trast. Mild stool burden throughout normal caliber colon. Small bowel is significantly dilated and fluid-filled. There is no proximal small bowel distention. Interloop fluid and trace perienteric edema is evident in the central and right abdomen. The terminal ileum is located within the right lower quadrant ventral hernia. The terminal ileum is decompressed. A portion of small bowel is also contained within the larger left mid ventral hernia closed loop obstructions of small bowel are not excluded. Peritoneal cavity: Trace interloop fluid as mentioned. No free intraperitoneal gas. Lymph nodes: No gross lymphadenopathy allowing for noncontrast technique. Vasculature: Atherosclerosis of the normal caliber abdominal aorta. Abdominal wall: Large left mid abdominal ventral hernia with a neck measuring 6.9 cm in diameter in comparison to a maximal hernia sac diameter of 19 cm. This contains both small and large bowel. Small bowel is dilated up to 4 cm within this hernia sac. A second slightly smaller ventral hernias noted in the right lower quadrant/right mid abdomen close or to midline. This hernia sac has a neck measuring 4.4 cm in comparison to a maximal sac diameter of 8.3 cm. This may be multilobular with a short segment of small bowel along the inferior margin with significant wall thickening and surrounding fat infiltration (series 3 image 282). Musculoskeletal: Degenerative changes of the spine. IMPRESSION: 1. Findings consistent with small bowel obstruction, which appears complete or high-grade partial. This appearance is similar though worsened from prior suggesting an acute on chronic component. Lack of intravenous and oral contrast limit evaluation. Given the decompressed proximal and distal small bowel, a closed loop obstruction cannot be excluded. The obstruction could be related to the presence of the large ventral hernias. Surgical consultation is necessary. The report will be called/faxed according to standard departmental protocol. ACT 112: Negative or not required by law. Electronically signed by: Meek Julien M.D. 08/01/2019 7:25 AM PG Care Time/CCT Total # of Minutes Spent Total Time Spent with Patient: Total time spent is greater than 50% in coordination of care (as documented) at patient's floor/unit and/or counseling patient: Coding Level of Care Code 18256 Initial Inpt Care Lvl 3 Diagnoses Small bowel obstruction K56.609
[2019-08-01] MEDS: METOPROLOL TARTRATE 1 MG/ML VIAL IV SCH ×4 (11:03→23:39)
[2019-08-01] MEDS: ONDANSETRON INJ 2 MG/ML 2 ML VIAL IV PRN (11:45)
--- NOTE | 2019-08-01 14:28 | Electrocardiogram Report ---
Test Reason : Blood Pressure : / mmHG Vent. Rate : 071 BPM Atrial Rate : 071 BPM P-R Int : 140 ms QRS Dur : 092 ms QT Int : 458 ms P-R-T Axes : 066 045 078 degrees QTc Int : 497 ms Sinus rhythm with Premature atrial complexes Nonspecific ST and T wave abnormality Prolonged QT Abnormal ECG When compared with ECG of 16-JUL-2018 07:38, Premature ventricular complexes are no longer Present Premature atrial complexes are now Present Nonspecific T wave abnormality no longer evident in Inferior leads Inverted T waves have replaced nonspecific T wave abnormality in Anterior leads QT has lengthened Confirmed by Tyler Liu ([id number]) on 08/01/2019 2:28:04 PM Referred By: REFERRED SELF Confirmed By:Yaya Liu
[2019-08-01] MEDS ORDERED: cefTRIAXone SODIUM 1,000 MG in DEXTROSE 5% 50 ML IV SCH (16:00)
--- NOTE | 2019-08-01 18:27 | History & Physical Bridge Note ---
Date of Service August 01, 2019 History & Physical Bridge Note I have examined the patient, reviewed the History & Physical and in the interval since the performance of the History & Physical I have noted the following changes of clinical significance: Patient seen in the evening of the day of admission and was feeling better but had received some fentanyl today. Denies any nausea. She thinks maybe she passed a little bit of flatus today but is not sure. Pain is certainly improved. She is upset about her current situation. She does continue to state that she does not want an NG tube unless absolutely necessary and if so, she would want a pediatric sized NG tube and reports that she has a history of nasal bone fracture causing difficult NG tube placement. She also maintains that she does not want to be transferred to a tertiary care facility for any surgical procedure. She states that she wants to be made a DNR. The nurse also advised me that the patient had very foul-smelling urine. The patient maintains that she does not have any urinary urgency or frequency or dysuria. She does not want to be treated with any antibiotics for a UTI at this time but will let me know if she develops urinary symptoms. I discussed her case with her primary care physician Dr. Herring who saw her as a social visit also this morning. I also discussed her case with the general surgeon, Dr. Wade. Vitals reviewed Gen: AAOx3, NAD, thin HEENT: Anicteric sclerae, right sided facial palsy, oropharynx with mildly dry mucous membranes CV: RRR with ectopy, no mgr nl S1S2 Pulm: CTAB no wcr Abd: +BS soft minimal tenderness in the right lower quadrant with large incisional hernia on the right which is reducible, and enormous ventral hernia on the left entire side of abdomen that is with loss of abdominal domain and unable to be reduced but is nontender Ext: No edema Skin: No rashes, warm/dry Neuro: Full strength throughout This patient is a 78-year-old female with a history of severe RA on chronic prednisone and Plaquenil, chronic systolic CHF, idiopathic cardiomyopathy, GERD, asthma, HTN, eczema, OA, hyponatremia, rheumatoid lung disease with pulmonary nodules, osteoporosis, iron deficiency anemia, and a 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 -Continue conservative management as per patient's wishes -No NG tube at this time -Continue IV fluids but change to D5 normal saline with 20 mEq KCl at 50 mL's per hour -Follow electrolytes and replace as needed -Continue n.p.o. status -Added on IV metoprolol 5 mg every 6 hours scheduled while off of p.o. metoprolol -Defer on treatment of UTI at this time unless patient develops symptoms or becomes septic as per her wish
[2019-08-01] MEDS: D5NSS + 20MEQ KCL 20 MEQ/1,000 ML BAG IV SCH (19:04)
[2019-08-01] MEDS: FAMOTIDINE 20 MG in SYRINGE 3 ML IV SCH (19:44)
[2019-08-01] MEDS: FLUTICASONE/VILANTEROL 100/25MCG 14 PUFFS/INHALER INH SCH (20:45)
[2019-08-01] MEDS ORDERED: BUDESONIDE/FORMOTEROL FUMARATE 160/4.5 60 PUFFS/INHALER INH SCH (21:00)
[2019-08-02] MEDS ORDERED: NURSING DECISION MEDICATION ONE (01:38)
[2019-08-02] MEDS ORDERED: SODIUM CHLORIDE 0.65% NA SOLN 45 ML (OCEAN) PRN (01:43)
[2019-08-02] MEDS: METOPROLOL TARTRATE 1 MG/ML VIAL IV SCH ×3 (05:55→17:45)
[2019-08-02 05:56] LABS: Basophils # (auto) 0.02 K/uL (0-0.2); Basophils % (auto) 0.2 %; Eosinophils # (auto) 0.08 K/uL (0-0.5); Eosinophils % (auto) 0.9 %; Hematocrit (blood only) 35.4 % (37-47); Hemoglobin 11.7 g/dL (12.0-16.0); Immature Granulocytes # (auto) 0.02 K/uL (0.00-0.02); Immature Granulocytes % (auto) 0.2 %; Lymphocytes # (auto) 1.64 K/uL (1.2-3.4); Lymphocytes % (auto) 19.3 %; Mean Corpuscular Hemoglobin 31.2 pg (25-34); Mean Corpuscular Hgb Conc 33.1 g/dL (32-36); Mean Corpuscular Volume 94.4 fL (80-100); Mean Platelet Volume 9.9 fL (7.4-10.4); Monocytes # (auto) 0.98 K/uL (0.11-0.59); Monocytes % (auto) 11.5 %; Neutrophils # (auto) 5.77 K/uL (1.4-6.5); Neutrophils % (auto) 67.9 %; Platelet Count 230 K/uL (130-400); RDW Coefficient of Variation 13.9 % (11.5-14.5); RDW Standard Deviation 47.8 fL (36.4-46.3); Red Blood Count 3.75 M/uL (4.2-5.4); White Blood Count 8.51 K/uL (4.8-10.8)
[2019-08-02 06:24] LABS: BUN Creatinine Ratio 27.6 (10-20); Calcium 8.7 mg/dl (8.5-10.1); Creatinine Clr Calc Pharmacy 68.1 ml/min; Est GFR (African American) 104.7; Est GFR (Non-African American) 90.3; Magnesium 1.9 mg/dl (1.8-2.4)
[2019-08-02] MEDS: FAMOTIDINE 20 MG in SYRINGE 3 ML IV SCH ×2 (08:40→19:09)
[2019-08-02] MEDS: ACETAMINOPHEN 1,000 MG/100 ML VIAL IV PRN ×2 (08:40→14:47)
[2019-08-02] MEDS: ENALAPRILAT 0.625 MG in SYRINGE 9.5 ML IV SCH ×2 (08:40→15:31)
[2019-08-02] MEDS: FLUTICASONE/VILANTEROL 100/25MCG 14 PUFFS/INHALER INH SCH (08:41)
[2019-08-02] MEDS ORDERED: FLUTICASONE/VILANTEROL 100/25MCG 14 PUFFS/INHALER INH SCH (09:00)
--- NOTE | 2019-08-02 09:39 | Hospitalist Progress Note ---
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 Improving now, passing flatus, reduced pain -Continue conservative management as per patient's wishes -No NG tube at this time -will now dc the IV fluids if tolerates clears today -Follow electrolytes and replace as needed -advance diet to clears today -continue Fentanyl 50 mcg IV every 1 hour as needed severe pain -Consult general surgery appreciated--> if worsened, would need transfer to tertiary care center if wanted surgery due ot loss of abdominal domain/complex abdominal anatomy. Patient maintains for now she does not want to be transferred at this time (2) Hypertension: BPs quite elevated -continue IV metoprolol scheduled and added IV Vasotec scheduled -hold po metoprolol and lisinopril from home until taking po reliably -IV hydralazine prn -can dc IVFs if melany po (3) Anxiety: Anxiety/depression- -continue Ativan 0.25 mg IV every 6 hours PRN (4) Chronic obstructive asthma: -Have duo nebs available every 2 hours as needed shortness of breath -restart home LABA/ICS (5) Seropositive rheumatoid arthritis: Seropositive RA/Sjogren's syndrome-while n.p.o., hold hydroxychloroquine and prednisone 10 mg p.o. every morning. Try to hold off on stress dose steroids due to SBO (6) Sjogrens syndrome: -holding plaquenil (7) Duodenal ulcer: History of such -continue famotidine 20 mg IV every 12 hours (8) UTI (urinary tract infection): With foul smelling urine but denies any symptoms UA abnormal, Ur cx with E. coli , sensitivities pending Pt declines antibiotic therapy No fevers or sepsis (9) DVT prophylaxis: add Lovenox SQ Dispo-continued stay Admission and Anticipated Discharge Date Admission Date: August 01, 2019 Subjective Pt feeling better today except having a mild frontal headache. BPs have been significantly elevated. She is passing flatus and denies any abdominal pain now. Is feeling hungry. No nausea. No Chest pain or SOB. She denies any urinary symptoms. Tele with NSR, PACs, PVCs, couplets, and frequent small runs of atrial ectopy and aberrancy Review of Systems Review of Systems: All systems reviewed & are unremarkable except as noted in HPI & below Physical Exam Physical Exam: Vitals reviewed Gen: AAOx3, NAD, thin HEENT: Anicteric sclerae, right sided facial palsy, moist mucous membranes CV: RRR with ectopy, no mgr nl S1S2 Pulm: CTAB no wcr Abd: +BS soft very minimal tenderness in the right lower quadrant with large incisional hernia on the right which is reducible, and enormous ventral hernia on the left entire side of abdomen that is with loss of abdominal domain and unable to be reduced but is nontender Ext: No edema Skin: No rashes, warm/dry Neuro: Full strength throughout PG Care Time/CCT Total # of Minutes Spent Total Time Spent with Patient: Total time spent is greater than 50% in coordination of care (as documented) at patient's floor/unit and/or counseling patient: Coding Level of Care Code 59158 Subseq Hosp Care Lvl 3 Diagnoses Small bowel obstruction K56.609 Hypertension I10 Anxiety F41.9 Chronic obstructive asthma J44.9 Seropositive rheumatoid arthritis M05.9 Sjogrens syndrome M35.00 Duodenal ulcer K26.9 UTI (urinary tract infection) N39.0 DVT prophylaxis Z29.9
[2019-08-02] MEDS: ONDANSETRON INJ 2 MG/ML 2 ML VIAL IV PRN (09:53)
--- NOTE | 2019-08-02 10:31 | XRay Report ---
KUB HISTORY: Small bowel obstruction. Follow-up. COMPARISON: Abdomen and pelvis CT 08/01/2019. FINDINGS: Gas-filled distended loops of small bowel are again noted within the left side of the abdom en at the patient's known hernia. These measure up to 5 cm in diameter. This remains unchanged. There is gas and stool within the colon, unchanged. No renal calculi. No ureteral calculi. Calcifications in the deep pelvis likely represent phleboliths. No pneumoperitoneum or pneumatosis. IMPRESSION: No significant change in the left-sided abdominal wall hernia with a persistent small bowel obstructi on pattern. ACT 112: Negative or not required by law. Electronically signed by: Stanford Cuadra M.D. 08/02/2019 10:30 AM
--- NOTE | 2019-08-02 11:13 | Surgery Progress Note ---
Date of Service August 02, 2019 Assessment & Plan (1) Small bowel obstruction: Patient symptoms improved from yesterday R sided abd hernia remains reduced, and abdominal exam improved from yesterday (soft and less tender) she is passing more flatus, no BM yet continue antiemetics prn nausea Agree with advancing to clears today Subjective Patient lying in bed. States she feels much better than yesterday. She is passing gas, no BM yet. She says her abdominal pain is much better. She has some mild nausea, but no emesis. Drank some liquids this AM. Complaining of a headache. Physical Exam Physical Exam: awake/alert Constitutional: no acute distress Gastrointestinal (Abdomen): Inspection/Auscultation: + visible herniation (R side remains reduced, visible L sided hernia) Percussion/Palpation: abdomen soft Results & Data Vital Signs (Past 12 Hours) Vital Signs Temp Pulse Pulse Pulse Pulse Resp BP 08/02/19 08:45 66 08/02/19 07:19 36.8 C 59 L 20 08/02/19 05:55 71 182/74 H 08/02/19 04:00 37.1 C 70 18 08/01/19 23:39 78 166/71 H 08/01/19 23:38 37.0 C 78 18 BP Pulse Ox 08/02/19 08:45 08/02/19 07:19 178/69 H 97 08/02/19 05:55 08/02/19 04:00 172/71 H 93 08/01/19 23:39 08/01/19 23:38 166/71 H 94 PG Care Time/CCT Total # of Minutes Spent Total Time Spent with Patient: Total time spent is greater than 50% in coordination of care (as documented) at patient's floor/unit and/or counseling patient: Coding Level of Care Code 18930 Subseq Hosp Care Lvl 1 Diagnoses Small bowel obstruction K56.609
[2019-08-02 14:33] LABS: Appearance Urine Clear (Clear); Bilirubin Urine Negative (Negative); Blood Urine 1+ (Negative); Color Urine Yellow; Glucose Urine UA Negative (Negative); Ketones Urine Trace (Negative); Leukocyte Esterase Urine Negative (Negative); Nitrite Urine Positive (Negative); Protein Urine Trace (Negative); Specific Gravity Urine 1.025 (1.000-1.030); Urobilinogen Urine Negative (Negative); pH Urine 5.5 (4.5-7.5)
[2019-08-02] MEDS: D5NSS + 20MEQ KCL 20 MEQ/1,000 ML BAG IV SCH (14:48)
[2019-08-02 14:53] LABS: Bacteria Urine 4+ (Negative); Epithelial Cell Urine 0-5 /lpf (0-5); RBC Urine 0-4 /hpf (0-4)
[2019-08-02 14:54] LABS: Hyaline Casts Urine 0-5 /lpf (0-5); Renal Epithelial Cells Urine 0-5 /lpf (0-5)
[2019-08-02] MEDS: lisinopriL 10 MG TAB PO SCH (19:09)
[2019-08-02] MEDS: ENOXAPARIN INJ 40 MG/0.4 ML SYR SQ SCH (20:35)
[2019-08-02] MEDS: HydrALAZINE HCL 20 MG/ML VIAL IV PRN (20:46)
[2019-08-02] MEDS: METOPROLOL SUCC 25MG EXT REL TAB PO SCH (21:29)
[2019-08-02] MEDS ORDERED: MoRPHine SULFATE 2 MG/ML CARP IV STA (22:19)
[2019-08-03] MEDS ORDERED: MoRPHine SULFATE 2 MG/ML CARP IV STA (04:39)
[2019-08-03] MEDS: ONDANSETRON INJ 2 MG/ML 2 ML VIAL IV PRN ×2 (04:50→11:15)
[2019-08-03 06:01] LABS: Basophils # (auto) 0.03 K/uL (0-0.2); Basophils % (auto) 0.3 %; Eosinophils % (auto) 2.3 %; Hematocrit (blood only) 35.8 % (37-47); Hemoglobin 11.9 g/dL (12.0-16.0); Immature Granulocytes # (auto) 0.03 K/uL (0.00-0.02); Immature Granulocytes % (auto) 0.3 %; Lymphocytes # (auto) 1.42 K/uL (1.2-3.4); Lymphocytes % (auto) 16.5 %; Mean Corpuscular Hemoglobin 31.1 pg (25-34); Mean Corpuscular Hgb Conc 33.2 g/dL (32-36); Mean Corpuscular Volume 93.5 fL (80-100); Mean Platelet Volume 9.8 fL (7.4-10.4); Monocytes # (auto) 0.91 K/uL (0.11-0.59); Monocytes % (auto) 10.6 %; Neutrophils # (auto) 6.02 K/uL (1.4-6.5); Platelet Count 225 K/uL (130-400); RDW Coefficient of Variation 13.7 % (11.5-14.5); RDW Standard Deviation 46.8 fL (36.4-46.3); Red Blood Count 3.83 M/uL (4.2-5.4); White Blood Count 8.61 K/uL (4.8-10.8)
[2019-08-03 06:39] LABS: BUN Creatinine Ratio 15.1 (10-20); Calcium 8.8 mg/dl (8.5-10.1); Creatinine Clr Calc Pharmacy 75.2 ml/min; Est GFR (African American) 108.1; Est GFR (Non-African American) 93.3; Magnesium 1.7 mg/dl (1.8-2.4); Phosphorus 2.5 mg/dl (2.5-4.9); Potassium 3.5 mmol/L (3.5-5.1)
[2019-08-03] MEDS: HydrALAZINE HCL 20 MG/ML VIAL IV PRN (07:46)
[2019-08-03] MEDS: FLUTICASONE/VILANTEROL 100/25MCG 14 PUFFS/INHALER INH SCH (07:47)
[2019-08-03] MEDS: METOPROLOL SUCC 25MG EXT REL TAB PO SCH ×2 (07:48→21:38)
[2019-08-03] MEDS: lisinopriL 10 MG TAB PO SCH (07:48)
[2019-08-03] MEDS ORDERED: lisinopriL 10 MG TAB PO ONE (09:19)
[2019-08-03] MEDS: FAMOTIDINE 20 MG in SYRINGE 3 ML IV SCH ×2 (09:27→18:28)
[2019-08-03] MEDS ORDERED: KETOROLAC TROMETHAMINE 15 MG/ML VIAL IV ONE (09:30)
--- NOTE | 2019-08-03 10:41 | Surgery Progress Note ---
Date of Service August 03, 2019 Assessment & Plan (1) Ventral hernia with bowel obstruction: Patient slowly improving from abdominal standpoint Continues to pass flatus, no BM yet Tolerating clears, has some nausea but no emesis Recommending okay to advancing diet as patient tolerates HTN and CONTRERAS management per medicine, appreciate their care for patient We will sign off for now, please call if you have any questions/concerns throughout patient's admission Subjective Patient resting in bed w/ compress over eyes. Biggest complaint is a headache that has been present since yesterday. She is tolerating clear liquids, with some associated nausea. Abdominal pain improved and she is passing flatus. Physical Exam Gastrointestinal (Abdomen): Inspection/Auscultation: + visible herniation (R sided hernia remains reduced, visible L abd hernia) Percussion/Palpation: abdomen soft Results & Data Vital Signs (Past 12 Hours) Vital Signs Temp Pulse Pulse Pulse Resp BP BP 08/03/19 08:00 58 L 08/03/19 07:34 36.2 C L 62 20 211/61 H 08/03/19 03:35 36.5 C 69 16 173/68 H 08/02/19 23:45 68 08/02/19 23:12 36.8 C 74 18 176/66 H Pulse Ox 08/03/19 08:00 08/03/19 07:34 96 08/03/19 03:35 96 08/02/19 23:45 08/02/19 23:12 93 PG Care Time/CCT Total # of Minutes Spent Total Time Spent with Patient: Total time spent is greater than 50% in coordination of care (as documented) at patient's floor/unit and/or counseling patient: Coding Level of Care Code 85813 Subseq Hosp Care Lvl 1 Diagnoses Ventral hernia with bowel obstruction K43.6
[2019-08-03] MEDS ORDERED: MAGNESIUM SULFATE / D5W 1 GM/100 ML BAG IV ONE (10:45)
[2019-08-03] MEDS ORDERED: FUROSEMIDE 20 MG in SYRINGE 0 ML IV ONE (10:45)
[2019-08-03] MEDS ORDERED: AMLODIPINE BESYLATE 5 MG TAB PO SCH (10:45)
[2019-08-03] MEDS: fentaNYL citrate 100 MCG/2 ML VIAL IV PRN ×2 (11:15→16:05)
--- NOTE | 2019-08-03 12:30 | Hospitalist Progress Note ---
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 Resolved now, passing flatus,no pain -No NG tube was needed -dcd IVFs -Follow electrolytes and replace as needed -advance diet to low fiber -Consult general surgery appreciated--> if worsened, would need transfer to tertiary care center if wanted surgery due ot loss of abdominal domain/complex abdominal anatomy. Patient maintains for now she does not want to be transferred at this time (2) Hypertension: BPs remain quite elevated in the 200s systolic, with severe headache Hypertensive urgency Initially had home po BP meds held and was on IV scheduled metoprolol and IV scheduled Vasotec -continue po metoprolol scheduled -give IV lasix 20mg x 1 -increase po lisinopril to 20mg daily -add amlodipine 5mg po daily -IV hydralazine prn (3) Headache: severe, secondary to hypertensive urgency CT Head noncon nothing acute -control BP -continue fentanyl, tylenol, toradol x 1 for pain -phenergan and Zofran for nausea (4) Anxiety: Anxiety/depression- -continue Ativan 0.25 mg IV every 6 hours PRN (5) Chronic obstructive asthma: -Have duo nebs available every 2 hours as needed shortness of breath -restarted home LABA/ICS (6) Seropositive rheumatoid arthritis: Seropositive RA/Sjogren's syndrome-while n.p.o., holding hydroxychloroquine -will restart prednisone 10 mg p.o. every morning tomorrow Try to hold off on stress dose steroids due to SBO (7) Sjogrens syndrome: -holding plaquenil (8) Duodenal ulcer: History of such -continue famotidine 20 mg IV every 12 hours and convert to po tomorrow (9) UTI (urinary tract infection): With foul smelling urine but denies any symptoms UA abnormal, Ur cx with E. coli , resistant to Unasyn and gent and Bactrim Pt now agreeable to antibiotic therapy -start Rocephin x 3 days No fevers or sepsis Pt request Minaya x 1 day at least given lasix (10) Hypomagnesemia: replaced -follow levels (11) DVT prophylaxis: Lovenox SQ Dispo-continued stay Admission and Anticipated Discharge Date Admission Date: August 01, 2019 Subjective Pt having a severe headache today and BPs quite elevated. Taking tylenol and fentanyl for pain. Having sadia enausea she thinks from the severe headache but no abd pain and is still passing flatus. Discussed her care wit her PCP who recommended urine cath sample which still showed UTI and pt agreeable to abx therapy now Tele with intermittent atrial tach with aberrancy NSR, PACs Review of Systems Review of Systems: All systems reviewed & are unremarkable except as noted in HPI & below (no CP, no SOB) Physical Exam Physical Exam: Vitals reviewed Gen: AAOx3, NAD, thin HEENT: Anicteric sclerae, right sided facial palsy, moist mucous membranes CV: RRR with ectopy, no mgr nl S1S2 Pulm: CTAB no wcr Abd: +BS soft no tenderness, with large incisional hernia on the right which is reducible, and enormous ventral hernia on the left entire side of abdomen that is with loss of abdominal domain and unable to be reduced but is nontender Ext: No edema Skin: No rashes, warm/dry Neuro: Full strength throughout Results & Data Results & Data ([facility]) Vital Signs (Past 12 Hours) Vital Signs Temp Pulse Pulse Pulse Resp BP BP 08/03/19 11:01 36.7 C 61 20 193/63 H 08/03/19 08:00 58 L 08/03/19 07:34 36.2 C L 62 20 211/61 H 08/03/19 03:35 36.5 C 69 16 173/68 H Pulse Ox 08/03/19 11:01 96 08/03/19 08:00 08/03/19 07:34 96 08/03/19 03:35 96 Laboratory Results labs reviewed Diagnostic Findings CT head noncon-nothing acute PG Care Time/CCT Total # of Minutes Spent Total Time Spent with Patient: Total time spent is greater than 50% in coordination of care (as documented) at patient's floor/unit and/or counseling patient: Coding Level of Care Code 59327 Subseq Hosp Care Lvl 3 Diagnoses Small bowel obstruction K56.609 Hypertension I10 Headache R51 Anxiety F41.9 Chronic obstructive asthma J44.9 Seropositive rheumatoid arthritis M05.9 Sjogrens syndrome M35.00 Duodenal ulcer K26.9 UTI (urinary tract infection) N39.0 Hypomagnesemia E83.42 DVT prophylaxis Z29.9
[2019-08-03] MEDS: AMLODIPINE BESYLATE 5 MG TAB PO SCH (12:33)
[2019-08-03 12:58] LABS: Appearance Urine Clear (Clear); Bacteria Urine Automated 1+ (Negative); Bilirubin Urine Negative (Negative); Blood Urine Negative (Negative); Cast Urine Automated 0 /lpf (0-5); Color Urine Yellow; Glucose Urine UA Negative (Negative); Ketones Urine Negative (Negative); Leukocyte Esterase Urine 1+ (Negative); Nitrite Urine Positive (Negative); Protein Urine Negative (Negative); RBC Urine Automated 0-4 /hpf (0-4); Specific Gravity Urine 1.011 (1.000-1.030); Urobilinogen Urine Negative (Negative); pH Urine 5.5 (4.5-7.5)
[2019-08-03] MEDS: cefTRIAXone SODIUM 1,000 MG in DEXTROSE 5% 50 ML IV SCH (17:04)
[2019-08-03] MEDS ORDERED: PROMETHAZINE HCL 12.5 MG in SODIUM CHLORIDE 0.9% 50 ML IV ONE (17:30)
[2019-08-03] MEDS: ENOXAPARIN INJ 40 MG/0.4 ML SYR SQ SCH (18:28)
--- NOTE | 2019-08-03 18:38 | CT Scan Report ---
CT OF THE HEAD WITHOUT CONTRAST CLINICAL HISTORY: severe headache,h/o hemangioma COMPARISON STUDY: Head CT June 16, 2016. CT DOSE: 537.48 mGy.cm TECHNIQUE: Helical axial images of the head were obtained without IV contrast. Automated exposure con trol was utilized for the study. A dose lowering technique was utilized adhering to the principles o f ALARA. FINDINGS: No acute intracranial hemorrhage, midline shift or mass effect is present. Ventricular syst em is stable. Basilar cisterns are patent. There are no extra axial collections. A 1.5 cm hypodensity within left temporal lobe is unchanged since prior exam. This could reflect a prominent perivascular space or old lacunar infarct. White matter hypodensity suggests small vessel disease. There are no f indings to suggest acute dural sinus thrombosis or acute territorial infarct. 2.1 cm partially calcif ied focus within the right aspect of the durga is unchanged since earlier exams. IMPRESSION: 1. No acute intracranial findings. 2. No change in a 2.1 cm partially calcified focus within the right aspect of the durga since prior ex ams. This is nonspecific although could reflect a cavernoma. ACT 112: Negative or not required by law. Electronically signed by: Josh Flannery M.D. 08/03/2019 6:36 PM
[2019-08-04] MEDS: ACETAMINOPHEN 1,000 MG/100 ML VIAL IV PRN (04:59)
[2019-08-04] MEDS: fentaNYL citrate 100 MCG/2 ML VIAL IV PRN (06:33)
[2019-08-04] MEDS: FAMOTIDINE 20 MG in SYRINGE 3 ML IV SCH (06:36)
[2019-08-04] MEDS: METOPROLOL SUCC 25MG EXT REL TAB PO SCH ×2 (07:24→20:21)
[2019-08-04] MEDS: lisinopriL 20 MG TAB PO SCH (07:26)
[2019-08-04] MEDS: AMLODIPINE BESYLATE 5 MG TAB PO SCH (07:26)
[2019-08-04 07:27] LABS: BUN Creatinine Ratio 17.8 (10-20); Calcium 8.7 mg/dl (8.5-10.1); Creatinine Clr Calc Pharmacy 53.1 ml/min; Est GFR (African American) 96.4; Est GFR (Non-African American) 83.2; Magnesium 1.9 mg/dl (1.8-2.4); Potassium 3.5 mmol/L (3.5-5.1)
[2019-08-04] MEDS: FLUTICASONE/VILANTEROL 100/25MCG 14 PUFFS/INHALER INH SCH (07:27)
[2019-08-04 07:37] LABS: Phosphorus 3.3 mg/dl (2.5-4.9)
[2019-08-04] MEDS ORDERED: DOCUSATE SODIUM 100 MG CAP PO SCH (09:00)
[2019-08-04] MEDS ORDERED: predniSONE 10 MG TABLET PO SCH (09:00)
[2019-08-04] MEDS: ONDANSETRON INJ 2 MG/ML 2 ML VIAL IV PRN (09:04)
[2019-08-04] MEDS ORDERED: PROCHLORPERAZINE 10 MG in SYRINGE 8 ML IV PRN (09:42)
[2019-08-04] MEDS ORDERED: AMLODIPINE BESYLATE 5 MG TAB PO ONE (09:45)
[2019-08-04] MEDS ORDERED: MoRPHine SULFATE 2 MG/ML CARP IV PRN (09:45)
--- NOTE | 2019-08-04 10:42 | Hospitalist Progress Note ---
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 Resolved now, passing flatus,no pain, still no bowel movement yet -No NG tube was ever needed -Have since Dcd IVFs -Follow electrolytes and replace as needed -Continue low fiber diet -Add on senna to her docusate-hope for bowel movement prior to discharge -Consult general surgery appreciated--> if worsened, would need transfer to tertiary care center if wanted surgery due ot loss of abdominal domain/complex abdominal anatomy. Patient maintains for now she does not want to be transferred at this time (2) Hypertension: BPs remain quite elevated in the 200s systolic, with severe headache Hypertensive urgency in the setting of not being able to take her home p.o. antihypertensives initially Finally starting to improve today after addition of amlodipine and increasing dose of lisinopril as well as receiving a dose of IV Lasix on 08/02 Headache is much improved -continue po metoprolol scheduled -Continue increased dose of lisinopril 20mg daily -Continue amlodipine 5mg po daily which is a new med for -Continue IV hydralazine prn (3) Headache: severe, secondary to hypertensive urgency-finally resolving as blood pressure is improving CT Head noncon nothing acute -Continue to control BP -DC fentanyl, DC Tylenol as does not help her at all -Add morphine as needed -Compazine and Zofran for nausea (4) Anxiety: Anxiety/depression- -continue Ativan 0.25 mg IV every 6 hours PRN (5) Chronic obstructive asthma: -Have duo nebs available every 2 hours as needed shortness of breath -Continue home LABA/ICS (6) Seropositive rheumatoid arthritis: Seropositive RA/Sjogren's syndrome-while n.p.o., holding hydroxychloroquine -Continue prednisone 5 mg p.o. every morning No stress dose steroids were needed (7) Sjogrens syndrome: -holding plaquenil given pharmacy shortage (8) Duodenal ulcer: History of such -continue famotidine and convert to po (9) UTI (urinary tract infection): With foul smelling urine but denies any symptoms UA abnormal, Ur cx with E. coli , resistant to Unasyn and gent and Bactrim Pt now agreeable to antibiotic therapy -Continue Rocephin x 3 days-last day will be 08/04 No fevers or sepsis (10) Hypomagnesemia: replaced -follow levels (11) DVT prophylaxis: Lovenox SQ Dispo-continued stay for labile blood pressures and headache, but hopeful for discharge home tomorrow if has bowel movement PT/OT consultations-patient is ambulatory Admission and Anticipated Discharge Date Admission Date: August 01, 2019 Anticipated date of discharge: 08/05/19 Subjective Patient did have another headache again this morning with nausea but it has now completely resolved and her blood pressure has improved. She denies chest pain or shortness of breath, no abdominal pains. She is still passing flatus but no bowel movement yet. Overall feeling much better Telemetry with sinus bradycardia and normal sinus rhythm with PACs and PVCs with rates in the 50s to 80s Review of Systems Review of Systems: All systems reviewed & are unremarkable except as noted in HPI & below Physical Exam Physical Exam: Vitals reviewed Gen: AAOx3, NAD, thin HEENT: Anicteric sclerae, right sided facial palsy, moist mucous membranes CV: RRR with ectopy, no mgr nl S1S2 Pulm: CTAB no wcr Abd: +BS soft no tenderness, with large incisional hernia on the right which is reducible, and enormous ventral hernia on the left entire side of abdomen that is with loss of abdominal domain and unable to be reduced but is nontender Ext: No edema Skin: No rashes, warm/dry Neuro: Full strength throughout Results & Data Results & Data ([facility]) Vital Signs (Past 12 Hours) Vital Signs Temp Pulse Pulse Pulse Resp BP Pulse Ox 08/04/19 07:47 76 08/04/19 07:27 36.6 C 59 L 20 173/81 H 59 L 08/04/19 04:00 36.6 C 80 20 161/64 H 93 08/03/19 23:36 37 C 80 18 145/65 H 93 08/03/19 23:00 75 Laboratory Results 03/27/20 03/27/20 Range/Units 06:34 05:29 Sodium 132 L Cancelled Potassium 3.5 Cancelled Chloride 100 Cancelled Carbon Dioxide 27 Cancelled Anion Gap 5.0 Cancelled BUN 12 D Cancelled Creatinine 0.68 Cancelled Est Cr Clr Drug Dosing 53.1 Cancelled Est GFR ( Amer) 96.4 Cancelled Est GFR (Non-Af Amer) 83.2 Cancelled BUN/Creatinine Ratio 17.8 Cancelled Glucose 77 Cancelled Calcium 8.7 Cancelled Phosphorus 3.3 Cancelled Magnesium 1.9 Cancelled PG Care Time/CCT Total # of Minutes Spent Total Time Spent with Patient: Total time spent is greater than 50% in coordination of care (as documented) at patient's floor/unit and/or counseling patient: Coding Level of Care Code 57332 Subseq Hosp Care Lvl 3 Diagnoses Small bowel obstruction K56.609 Hypertension I10 Headache R51 Anxiety F41.9 Chronic obstructive asthma J44.9 Seropositive rheumatoid arthritis M05.9 Sjogrens syndrome M35.00 Duodenal ulcer K26.9 UTI (urinary tract infection) N39.0 Hypomagnesemia E83.42 DVT prophylaxis Z29.9
[2019-08-04] MEDS: SENNA 8.6 MG TAB PO SCH (12:49)
[2019-08-04] MEDS: cefTRIAXone SODIUM 1,000 MG in DEXTROSE 5% 50 ML IV SCH (16:14)
[2019-08-04] MEDS: ENOXAPARIN INJ 40 MG/0.4 ML SYR SQ SCH (19:27)
[2019-08-04] MEDS: FAMOTIDINE 20 MG TAB PO SCH (20:21)
[2019-08-04] MEDS: DOCUSATE SODIUM 100 MG CAP PO SCH (20:21)
[2019-08-04] MEDS: HydrALAZINE HCL 20 MG/ML VIAL IV PRN (20:27)
[2019-08-05 06:36] LABS: Basophils # (auto) 0.02 K/uL (0-0.2); Basophils % (auto) 0.3 %; Eosinophils # (auto) 0.12 K/uL (0-0.5); Eosinophils % (auto) 1.7 %; Hematocrit (blood only) 34.4 % (37-47); Hemoglobin 11.2 g/dL (12.0-16.0); Immature Granulocytes # (auto) 0.02 K/uL (0.00-0.02); Immature Granulocytes % (auto) 0.3 %; Lymphocytes # (auto) 1.57 K/uL (1.2-3.4); Lymphocytes % (auto) 22.4 %; Mean Corpuscular Hemoglobin 30.9 pg (25-34); Mean Corpuscular Hgb Conc 32.6 g/dL (32-36); Mean Platelet Volume 9.8 fL (7.4-10.4); Monocytes # (auto) 0.87 K/uL (0.11-0.59); Monocytes % (auto) 12.4 %; Neutrophils % (auto) 62.9 %; Platelet Count 230 K/uL (130-400); RDW Coefficient of Variation 13.4 % (11.5-14.5); RDW Standard Deviation 46.8 fL (36.4-46.3); Red Blood Count 3.62 M/uL (4.2-5.4)
[2019-08-05 07:12] LABS: BUN Creatinine Ratio 27.6 (10-20); Calcium 8.8 mg/dl (8.5-10.1); Creatinine Clr Calc Pharmacy 56.7 ml/min; Est GFR (African American) 98.9; Est GFR (Non-African American) 85.3; Magnesium 1.9 mg/dl (1.8-2.4); Potassium 3.2 mmol/L (3.5-5.1)
[2019-08-05] MEDS: METOPROLOL SUCC 25MG EXT REL TAB PO SCH ×2 (07:40→19:53)
[2019-08-05] MEDS: DOCUSATE SODIUM 100 MG CAP PO SCH ×2 (07:41→19:52)
[2019-08-05] MEDS: lisinopriL 20 MG TAB PO SCH (07:41)
[2019-08-05] MEDS: predniSONE 5 MG TAB PO SCH (07:41)
[2019-08-05] MEDS: AMLODIPINE BESYLATE 5 MG TAB PO SCH (07:41)
[2019-08-05] MEDS: FAMOTIDINE 20 MG TAB PO SCH ×2 (07:42→19:52)
[2019-08-05] MEDS: SENNA 8.6 MG TAB PO SCH (07:42)
[2019-08-05] MEDS: FLUTICASONE/VILANTEROL 100/25MCG 14 PUFFS/INHALER INH SCH (07:42)
[2019-08-05] MEDS ORDERED: AMLODIPINE BESYLATE 5 MG TAB PO SCH (09:00)
[2019-08-05] MEDS ORDERED: POTASSIUM CHLORIDE 20 MEQ TABCR PO ONE (09:15)
--- NOTE | 2019-08-05 10:50 | Hospitalist Progress Note ---
Date of Service August 05, 2019 Assessment & Plan (1) Ventral hernia with bowel obstruction: Obstruction appears to have resolved, patient now tolerating a low fiber diet. We are waiting for the patient to have a bowel movement which has not taken place yet. She is on senna in the morning. We will add as needed MiraLAX if no bowel movement later in the day. I did also encourage patient to sit up in a chair and ambulate as possible. (2) HTN (hypertension): Patient's lisinopril was recently increased to 20 mg, can continue this along with amlodipine. Patient is also on metoprolol 12.5 mg twice daily. Hopefully blood pressure will improve after another 24 hours of oral medications, consideration to increasing amlodipine to 10 mg in the a.m. if patient's blood pressure alejandro elevated. (3) UTI (urinary tract infection): Patient currently being treated for urinary tract infection with Rocephin. Urine culture shows E. coli that is sensitive. She is currently on day #2 of this. If we do discharge the patient in the next 24-48 hours, can finish antibiotic course with oral medications. Admission and Anticipated Discharge Date Admission Date: August 01, 2019 Subjective Patient awake and alert. She denies any abdominal pain. She has been tolerating a diet. She has been passing flatus but has not had a bowel movement. In addition, her blood pressure has been elevated despite being on her outpatient oral antihypertensive regimen. Initial blood pressure this mo rning is 188/95 but did increase to 148/66 after medication. Patient has been ambulatory to the best of her ability, will sit up in a chair. She does require a walker and [facility] Physical Exam Constitutional: cooperative; no acute distress Neck: trachea midline, no thyromegaly Respiratory: normal respiratory effort Auscultation: lungs clear to auscultation bilaterally; no crackles, no rales, no rhonchi and no wheezes Cardiovascular: Rate/Rhythm: regular rate and regular rhythm Heart Sounds: normal S1, normal S2 and + murmur Gastrointestinal (Abdomen): Inspection/Auscultation: abdomen normal to inspection Percussion/Palpation: abdomen soft; abdomen nontender, no guarding, abdomen not rigid and no hepatosplenomegaly Large ventral hernia, soft, nontender to palpation. Bowel sounds auscultated. Skin: no rashes, warm and dry Results & Data Results & Data ([facility]) Vital Signs (Past 12 Hours) Vital Signs Temp Pulse Pulse Resp BP Pulse Ox 08/05/19 09:00 70 18 148/66 H 08/05/19 08:29 74 08/05/19 07:46 36.9 C 70 18 188/95 H 94 08/05/19 04:15 36.9 C 70 18 157/70 H 97 08/04/19 23:57 36.6 C 69 17 148/67 H 95 08/04/19 23:07 78 Laboratory Results WBCs 7, hemoglobin 11.2, hematocrit of 34.4 with platelets of 230. Potassium is 3.2. Glucose is 112. Magnesium is 1.9. PG Care Time/CCT Total # of Minutes Spent Total Time Spent with Patient: Total time spent is greater than 50% in coordination of care (as documented) at patient's floor/unit and/or counseling patient: Coding Level of Care Code 71891 Subseq Hosp Care Lvl 2 Diagnoses Ventral hernia with bowel obstruction K43.6 HTN (hypertension) I10 UTI (urinary tract infection) N39.0
[2019-08-05] MEDS: HydrALAZINE HCL 20 MG/ML VIAL IV PRN (12:19)
[2019-08-05] MEDS: cefTRIAXone SODIUM 1,000 MG in DEXTROSE 5% 50 ML IV SCH (16:12)
[2019-08-05] MEDS: POLYETHYLENE (MIRALAX) 17 GM PACK PO PRN (19:51)
[2019-08-05] MEDS: ENOXAPARIN INJ 40 MG/0.4 ML SYR SQ SCH (19:51)
[2019-08-06 06:32] LABS: Basophils # (auto) 0.02 K/uL (0-0.2); Basophils % (auto) 0.3 %; Eosinophils # (auto) 0.23 K/uL (0-0.5); Eosinophils % (auto) 2.9 %; Hematocrit (blood only) 36.2 % (37-47); Hemoglobin 12.2 g/dL (12.0-16.0); Immature Granulocytes # (auto) 0.02 K/uL (0.00-0.02); Immature Granulocytes % (auto) 0.3 %; Lymphocytes # (auto) 1.56 K/uL (1.2-3.4); Lymphocytes % (auto) 19.6 %; Mean Corpuscular Hemoglobin 31.6 pg (25-34); Mean Corpuscular Hgb Conc 33.7 g/dL (32-36); Mean Corpuscular Volume 93.8 fL (80-100); Mean Platelet Volume 9.9 fL (7.4-10.4); Monocytes # (auto) 0.87 K/uL (0.11-0.59); Monocytes % (auto) 10.9 %; Neutrophils # (auto) 5.26 K/uL (1.4-6.5); Platelet Count 243 K/uL (130-400); RDW Coefficient of Variation 13.6 % (11.5-14.5); RDW Standard Deviation 46.7 fL (36.4-46.3); Red Blood Count 3.86 M/uL (4.2-5.4); White Blood Count 7.96 K/uL (4.8-10.8)
[2019-08-06] MEDS: POLYETHYLENE (MIRALAX) 17 GM PACK PO PRN (06:48)
[2019-08-06 07:04] LABS: BUN Creatinine Ratio 23.4 (10-20); Calcium 9.2 mg/dl (8.5-10.1); Creatinine Clr Calc Pharmacy 70.6 ml/min; Est GFR (Non-African American) 91.5; Potassium 3.4 mmol/L (3.5-5.1)
[2019-08-06] MEDS: lisinopriL 20 MG TAB PO SCH (07:52)
[2019-08-06] MEDS: FAMOTIDINE 20 MG TAB PO SCH ×2 (07:52→22:31)
[2019-08-06] MEDS: METOPROLOL SUCC 25MG EXT REL TAB PO SCH ×2 (07:52→22:31)
[2019-08-06] MEDS: predniSONE 5 MG TAB PO SCH (07:52)
[2019-08-06] MEDS: FLUTICASONE/VILANTEROL 100/25MCG 14 PUFFS/INHALER INH SCH (07:53)
[2019-08-06] MEDS: SENNA 8.6 MG TAB PO SCH (07:53)
[2019-08-06] MEDS: DOCUSATE SODIUM 100 MG CAP PO SCH ×2 (07:53→22:31)
[2019-08-06] MEDS: AMLODIPINE BESYLATE 5 MG TAB PO SCH (07:53)
[2019-08-06] MEDS: ONDANSETRON INJ 2 MG/ML 2 ML VIAL IV PRN (07:54)
[2019-08-06] MEDS ORDERED: AMLODIPINE BESYLATE 5 MG TAB PO ONE (09:36)
--- NOTE | 2019-08-06 09:41 | Hospitalist Progress Note ---
Date of Service August 06, 2019 Assessment & Plan (1) Ventral hernia with bowel obstruction: Obstruction appears to have resolved, patient now tolerating a low fiber diet. Patient continues on p.o. senna. She was given a dose of MiraLAX yesterday and is requesting a second dose today. Order as needed. Consider suppository if patient continues to have constipation. She is currently pain- free. (2) HTN (hypertension): Patient's lisinopril was recently increased to 20 mg, can continue this along with amlodipine. Patient is also on metoprolol 12.5 mg twice daily. Blood pressure remains significant elevated. Will continue lisinopril 20 mg d aily, metoprolol succinate 12.5 mg twice daily. Increase amlodipine to 10 mg daily, give another 5 mg today. If blood pressure remains significant elevated, consider addition of oral hydralazine. (3) UTI (urinary tract infection): Patient currently being treated for urinary tract infection with Rocephin. Urine culture shows E. coli that is sensitive. She is currently on day #3 of this. If we do discharge the patient in the next 24-48 hours, can finish antibiotic course with oral medications. Admission and Anticipated Discharge Date Admission Date: August 01, 2019 Anticipated date of discharge: 08/05/19 Subjective Patient is awake and alert. She tells me she had a small bowel movement overnight but still feels constipated. Blood pressure remains elevated and was 175/92 today. As high as 176/79 overnight. Patient is trying to ambulate with walker at bedside. She is anxious in regards to returning home. Physical Exam Constitutional: cooperative; no acute distress Neck: trachea midline, no thyromegaly Respiratory: normal respiratory effort Auscultation: lungs clear to auscultation bilaterally; no crackles, no rales, no rhonchi and no wheezes Cardiovascular: Rate/Rhythm: regular rate and regular rhythm Heart Sounds: normal S1 and normal S2 Gastrointestinal (Abdomen): Inspection/Auscultation: abdomen normal to inspection Percussion/Palpation: abdomen soft; abdomen nontender, no guarding, abdomen not rigid and no hepatosplenomegaly Minimal distention, grossly nontender Skin: no rashes, warm and dry Results & Data Results & Data ([facility]) Vital Signs (Past 12 Hours) Vital Signs Temp Pulse Pulse Resp BP BP Pulse Ox 08/06/19 08:49 76 08/06/19 08:00 36.5 C 88 22 175/92 H 96 08/06/19 04:00 36.8 C 72 18 174/81 H 96 08/06/19 00:13 57 L 08/06/19 00:11 66 20 164/73 H 94 08/05/19 23:30 36.7 C 66 20 193/90 H 97 PG Care Time/CCT Total # of Minutes Spent Total Time Spent with Patient: Total time spent is greater than 50% in coordination of care (as documented) at patient's floor/unit and/or counseling patient: Coding Level of Care Code 05017 Subseq Hosp Care Lvl 2 Diagnoses Ventral hernia with bowel obstruction K43.6 HTN (hypertension) I10 UTI (urinary tract infection) N39.0
[2019-08-06] MEDS ORDERED: POTASSIUM CHLORIDE 20 MEQ TABCR PO STA (09:45)
[2019-08-06] MEDS: HydrALAZINE HCL 20 MG/ML VIAL IV PRN (13:04)
[2019-08-06] MEDS: cefTRIAXone SODIUM 1,000 MG in DEXTROSE 5% 50 ML IV SCH (15:43)
[2019-08-06] MEDS ORDERED: SOD PHOSPHATE/SOD BIPHOSPHATE ENEMA 132 ML BTL PR PRN (17:10)
[2019-08-06] MEDS: ENOXAPARIN INJ 40 MG/0.4 ML SYR SQ SCH (18:46)
[2019-08-07] MEDS: HydrALAZINE HCL 20 MG/ML VIAL IV PRN (05:56)
[2019-08-07] MEDS: ONDANSETRON INJ 2 MG/ML 2 ML VIAL IV PRN (07:51)
[2019-08-07] MEDS: FLUTICASONE/VILANTEROL 100/25MCG 14 PUFFS/INHALER INH SCH (07:52)
[2019-08-07] MEDS: DOCUSATE SODIUM 100 MG CAP PO SCH ×2 (07:53→20:22)
[2019-08-07] MEDS: lisinopriL 20 MG TAB PO SCH (07:53)
[2019-08-07] MEDS: SENNA 8.6 MG TAB PO SCH (07:53)
[2019-08-07] MEDS: FAMOTIDINE 20 MG TAB PO SCH ×2 (07:53→20:22)
[2019-08-07] MEDS: METOPROLOL SUCC 25MG EXT REL TAB PO SCH ×2 (07:53→20:22)
[2019-08-07] MEDS: predniSONE 5 MG TAB PO SCH (07:54)
[2019-08-07] MEDS ORDERED: AMLODIPINE BESYLATE 5 MG TAB PO SCH (09:00)
[2019-08-07] MEDS: hydroCHLOROthiazide 25 MG TAB PO SCH (11:34)
--- NOTE | 2019-08-07 14:04 | Hospitalist Progress Note ---
Date of Service August 07, 2019 Assessment & Plan (1) Ventral hernia with bowel obstruction: Obstruction appears to have resolved, patient now tolerating a low fiber diet. - She was given a two doses of MiraLAX on 08/05. - Continue senna PO. - Presently pain-free (2) HTN (hypertension): Patient's lisinopril was recently increased to [address] Herring who reports she does well with diuretics. - Continue lisinopril & metoprolol - Added HCTZ today at Dr. Herring's recommendation - Monitor BP today. (3) UTI (urinary tract infection): UA on 08/02 indicated infection. Urine culture grew E. coli.that is sensitive to ceftriaxone. - Finished course on 08/06 -> No real indication this was infective anyhow as she had no fever, no leukocytosis, and no symptoms. Unsure why it was treated. (4) Sjogrens syndrome: Seropositive RA/Sjogren's syndrome - Restart hydroxychloroquine as able - Continue home prednisone 5 mg PO daily (5) Chronic obstructive asthma: No major flare recently. - Continue home LABA/ICS - DuoNebs PRN (6) DVT prophylaxis: Lovenox 40 mg SQ daily Admission and Anticipated Discharge Date Admission Date: August 01, 2019 Anticipated date of discharge: 08/05/19 Subjective Had a headache that resolved just a bit before I arrived. At present, she is doing well, though upset by the blood pressure changes. She is tolerating diet well, but not having any BMs. Reports no fevers/chills, chest pain, shortness of breath, abdominal pain, nausea, or vomiting. Physical Exam Constitutional: WD/WN, vitals as above Eyes: EOM intact bilaterally; no conjunctival abnormality ENMT: external ear and nose normal, oropharynx normal Neck: trachea midline, no thyromegaly normal visual inspection Respiratory: normal respiratory effort, lungs clear to auscultation no respiratory distress Cardiovascular: RRR, no murmur, no edema Gastrointestinal (Abdomen): Inspection/Auscultation: abdomen normal to inspection; abdomen not distended Musculoskeletal: no cyanosis or clubbing, extremities motor strength 5/5 Skin: no rashes, warm and dry Neurologic: moves all extremities and awake Cranial Nerves: + abnormal facial strength (Facial asymmetry) Psychiatric: Orientation: alert, oriented to person and cooperative Results & Data Results & Data ([place]) Vital Signs (Past 12 Hours) Vital Signs Temp Pulse Pulse Resp BP Pulse Ox 08/07/19 11:30 36.5 C 87 18 153/74 H 95 08/07/19 09:02 173/72 H 08/07/19 08:00 70 08/07/19 07:49 36.5 C 87 18 178/61 H 93 08/07/19 05:15 36.9 C 74 16 188/76 H 95 PG Care Time/CCT Total # of Minutes Spent Total Time Spent with Patient: Total time spent is greater than 50% in coordination of care (as documented) at patient's floor/unit and/or counseling patient: Coding Level of Care Code 32826 Subseq Hosp Care Lvl 3 Diagnoses Ventral hernia with bowel obstruction K43.6 HTN (hypertension) I10 UTI (urinary tract infection) N39.0 Sjogrens syndrome M35.00 Chronic obstructive asthma J44.9 DVT prophylaxis Z29.9
[2019-08-07] MEDS: ENOXAPARIN INJ 40 MG/0.4 ML SYR SQ SCH (18:38)
[2019-08-08 07:33] LABS: BUN Creatinine Ratio 26.4 (10-20); Calcium 9.5 mg/dl (8.5-10.1); Creatinine Clr Calc Pharmacy 67.3 ml/min; Est GFR (African American) 104.7; Est GFR (Non-African American) 90.3; Potassium 3.6 mmol/L (3.5-5.1)
[2019-08-08] MEDS: METOPROLOL SUCC 25MG EXT REL TAB PO SCH ×2 (07:35→20:27)
[2019-08-08] MEDS: lisinopriL 20 MG TAB PO SCH (07:36)
--- NOTE | 2019-08-08 07:50 | XRay Report ---
XR KUB/Abdomen 1 view CLINICAL HISTORY: 78 years-old Female presenting with Resolving SBO, continued constipation. TECHNIQUE: Single supine view of the abdomen was obtained. COMPARISON: 08/02/[address] from 08/01/2019. FINDINGS: Partially visualized herniated bowel in the left mid abdomen. Moderate stool burden in the rectum and left colon. Anastomotic suture lines noted in the superior pelvis likely associated with the rectosi gmoid junction. Paucity of small bowel gas, nonspecific. No gross pneumoperitoneum. Allowing for bowel gas and stool, no calcifications to suggest nephrolithiasis. Degenerative changes of the spine. Lung bases clear. IMPRESSION: 1. Paucity of small bowel gas, nonspecific. Small bowel obstruction may or may not persist. 2. Predominantly distal moderate stool burden. ACT 112: Negative or not required by law. Electronically signed by: Meek Julien M.D. 08/08/2019 7:48 AM
[2019-08-08] MEDS: hydroCHLOROthiazide 25 MG TAB PO SCH (08:46)
[2019-08-08] MEDS: SENNA 8.6 MG TAB PO SCH (08:46)
[2019-08-08] MEDS: FLUTICASONE/VILANTEROL 100/25MCG 14 PUFFS/INHALER INH SCH (08:46)
[2019-08-08] MEDS: DOCUSATE SODIUM 100 MG CAP PO SCH ×2 (08:46→20:31)
[2019-08-08] MEDS: FAMOTIDINE 20 MG TAB PO SCH ×2 (08:46→20:29)
[2019-08-08] MEDS: NON-FORMULARY MEDICATION (Hydroxychloroquine Sulfate 200 MG) PO SCH (08:46)
[2019-08-08] MEDS: predniSONE 5 MG TAB PO SCH (08:46)
[2019-08-08] MEDS ORDERED: MAGNESIUM CITRATE 296 ML/BTL PO STA (11:20)
--- NOTE | 2019-08-08 12:43 | Hospitalist Progress Note ---
Date of Service August 08, 2019 Assessment & Plan (1) Ventral hernia with bowel obstruction: Obstruction appears to have resolved, patient now tolerating a low fiber diet. - She was given a two doses of MiraLAX on 08/05. - Continue senna PO. - Still constipated with hard stool and stool burden noted on KUB on 08/07. MgCitrate x 1 bottle given. (2) HTN (hypertension): Patient's lisinopril was recently increased to [address] Herring who reports she does well with diuretics. - Continue lisinopril & metoprolol - Added HCTZ on 08/[address] Herring's recommendation -> Discussed today as well with him. Continue present course. BP improving slowly. (3) UTI (urinary tract infection): UA on 08/02 indicated infection. Urine culture grew E. coli.that is sensitive to ceftriaxone. - Finished course on 08/06 -> No real indication this was infective anyhow as she had no fever, no leukocytosis, and no symptoms. Unsure why it was treated. (4) Sjogrens syndrome: Seropositive RA/Sjogren's syndrome - Restarted hydroxychloroquine on 08/07. - Continue home prednisone 5 mg PO daily (5) Chronic obstructive asthma: No major flare recently. - Continue home LABA/ICS - DuoNebs PRN (6) DVT prophylaxis: Lovenox 40 mg SQ daily Admission and Anticipated Discharge Date Admission Date: August 01, 2019 Anticipated date of discharge: 08/05/19 Subjective Still with a bit of headache this morning, though she slept well. Having some hard stool even with the enema. Reports no fevers/chills, chest pain, shortness of breath, abdominal pain, nausea, or vomiting. Physical Exam Constitutional: WD/WN, vitals as above Eyes: EOM intact bilaterally; no conjunctival abnormality ENMT: external ear and nose normal, oropharynx normal Neck: trachea midline, no thyromegaly normal visual inspection Respiratory: normal respiratory effort, lungs clear to auscultation no respiratory distress Cardiovascular: RRR, no murmur, no edema Gastrointestinal (Abdomen): Inspection/Auscultation: abdomen normal to inspection and normal bowel sounds; abdomen not distended Percussion/Palpation: abdomen soft; abdomen nontender Musculoskeletal: no cyanosis or clubbing, extremities motor strength 5/5 Skin: no rashes, warm and dry Neurologic: moves all extremities and awake Cranial Nerves: + abnormal facial strength (Facial asymmetry) Psychiatric: Orientation: alert, oriented to person and cooperative Results & Data Results & Data ([facility]) Vital Signs (Past 12 Hours) Vital Signs Temp Pulse Resp BP Pulse Ox 08/08/19 11:57 37.1 C 92 H 18 154/87 H 95 08/08/19 08:44 154/78 H 08/08/19 07:52 37.1 C 65 18 186/93 H 94 08/08/19 03:14 36.7 C 80 18 151/85 H 94 PG Care Time/CCT Total # of Minutes Spent Total Time Spent with Patient: Total time spent is greater than 50% in coordination of care (as documented) at patient's floor/unit and/or counseling patient: Coding Level of Care Code 75620 Subseq Hosp Care Lvl 2 Diagnoses Ventral hernia with bowel obstruction K43.6 HTN (hypertension) I10 UTI (urinary tract infection) N39.0 Sjogrens syndrome M35.00 Chronic obstructive asthma J44.9 DVT prophylaxis Z29.9
[2019-08-08] MEDS ORDERED: HYDROXYCHLOROQUINE SULFATE 200 MG TAB PO ONE (12:45)
[2019-08-08] MEDS ORDERED: bisacodyL 10 MG SUPP PR STA (12:45)
[2019-08-08] MEDS: ENOXAPARIN INJ 40 MG/0.4 ML SYR SQ SCH (18:04)
[2019-08-08] MEDS: HydrALAZINE HCL 20 MG/ML VIAL IV PRN (23:33)
[2019-08-09] MEDS: ACETAMINOPHEN 325 MG TAB PO PRN ×2 (06:14→16:47)
[2019-08-09 06:23] LABS: BUN Creatinine Ratio 34.8 (10-20); Calcium 9.2 mg/dl (8.5-10.1); Creatinine Clr Calc Pharmacy 60.4 ml/min; Est GFR (Non-African American) 87.2; Potassium 3.7 mmol/L (3.5-5.1)
[2019-08-09] MEDS: FAMOTIDINE 20 MG TAB PO SCH ×2 (07:48→20:44)
[2019-08-09] MEDS: HYDROXYCHLOROQUINE SULFATE 200 MG TAB PO SCH (07:48)
[2019-08-09] MEDS: lisinopriL 20 MG TAB PO SCH (07:48)
[2019-08-09] MEDS: predniSONE 5 MG TAB PO SCH (07:49)
[2019-08-09] MEDS: SENNA 8.6 MG TAB PO SCH (07:49)
[2019-08-09] MEDS: hydroCHLOROthiazide 25 MG TAB PO SCH (07:49)
[2019-08-09] MEDS: FLUTICASONE/VILANTEROL 100/25MCG 14 PUFFS/INHALER INH SCH (07:50)
[2019-08-09] MEDS: METOPROLOL SUCC 25MG EXT REL TAB PO SCH ×2 (07:51→20:43)
[2019-08-09] MEDS: DOCUSATE SODIUM 100 MG CAP PO SCH ×2 (08:20→20:46)
[2019-08-09] MEDS: NON-FORMULARY MEDICATION (Hydroxychloroquine Sulfate 200 MG) PO SCH (08:20)
--- NOTE | 2019-08-09 10:37 | Hospitalist Progress Note ---
Date of Service August 09, 2019 Assessment & Plan (1) Ventral hernia with bowel obstruction: Obstruction appears to have resolved, patient now tolerating a low fiber diet. - She was given a two doses of MiraLAX on 08/05. - Continue senna PO. - Doing well today. Had a BM yesterday and this morning that were soft, but not too runny. (2) HTN (hypertension): Patient's lisinopril was recently increased to [address] Herring who reports she does well with diuretics. - Continue lisinopril & metoprolol - Added HCTZ on 08/[address] Herring's recommendation - Now she's is more concerned about her high AM BPs. She does not feel ready to go, even though I do not think we are doing anything for her in the hospital. (3) UTI (urinary tract infection): UA on 08/02 indicated infection. Urine culture grew E. coli.that was sensitive to ceftriaxone. - Finished course on 08/06 -> No real indication this was infective anyhow as she had no fever, no leukocytosis, and no symptoms. Unsure why it was treated. (4) Sjogrens syndrome: Seropositive RA/Sjogren's syndrome - Restarted hydroxychloroquine on 08/07. - Continue home prednisone 5 mg PO daily (5) Chronic obstructive asthma: No major flare recently. - Continue home LABA/ICS - DuoNebs PRN (6) DVT prophylaxis: Lovenox 40 mg SQ daily Admission and Anticipated Discharge Date Admission Date: August 01, 2019 Anticipated date of discharge: 08/05/19 Subjective Had a mild headache this morning. Feels tired. BM are finally moving well. Reports no fevers/chills, chest pain, shortness of breath, abdominal pain, nausea, or vomiting. Physical Exam Constitutional: WD/WN, vitals as above Eyes: EOM intact bilaterally; no conjunctival abnormality ENMT: external ear and nose normal, oropharynx normal Neck: trachea midline, no thyromegaly normal visual inspection Respiratory: normal respiratory effort, lungs clear to auscultation no respiratory distress Cardiovascular: RRR, no murmur, no edema Gastrointestinal (Abdomen): Inspection/Auscultation: abdomen normal to inspection and normal bowel sounds; abdomen not distended Percussion/Palpation: abdomen soft; abdomen nontender Musculoskeletal: no cyanosis or clubbing, extremities motor strength 5/5 Skin: no rashes, warm and dry Neurologic: moves all extremities and awake Cranial Nerves: + abnormal facial strength (Facial asymmetry) Psychiatric: Orientation: alert, oriented to person and cooperative Results & Data Results & Data ([facility]) Vital Signs (Past 12 Hours) Vital Signs Temp Pulse Pulse Resp BP Pulse Ox 08/09/19 07:45 36.7 C 93 H 18 161/95 H 93 08/09/19 07:22 73 08/09/19 04:00 36.7 C 89 17 156/72 H 91 08/09/19 00:36 90 135/70 08/09/19 00:27 36.8 C 66 18 186/81 H 96 PG Care Time/CCT Total # of Minutes Spent Total Time Spent with Patient: Total time spent is greater than 50% in coor dination of care (as documented) at patient's floor/unit and/or counseling patient: Coding Level of Care Code 01009 Subseq Hosp Care Lvl 2 Diagnoses Ventral hernia with bowel obstruction K43.6 HTN (hypertension) I10 UTI (urinary tract infection) N39.0 Sjogrens syndrome M35.00 Chronic obstructive asthma J44.9 DVT prophylaxis Z29.9
[2019-08-09] MEDS: ENOXAPARIN INJ 40 MG/0.4 ML SYR SQ SCH (18:11)
[2019-08-09] MEDS: lisinopriL 10 MG TAB PO SCH (20:43)
[2019-08-10] MEDS: ACETAMINOPHEN 325 MG TAB PO PRN (07:44)
[2019-08-10] MEDS: FLUTICASONE/VILANTEROL 100/25MCG 14 PUFFS/INHALER INH SCH (07:45)
[2019-08-10] MEDS: hydroCHLOROthiazide 25 MG TAB PO SCH (07:46)
[2019-08-10] MEDS: predniSONE 5 MG TAB PO SCH (07:47)
[2019-08-10] MEDS: lisinopriL 10 MG TAB PO SCH (07:47)
[2019-08-10] MEDS: FAMOTIDINE 20 MG TAB PO SCH (07:47)
[2019-08-10] MEDS: SENNA 8.6 MG TAB PO SCH (07:49)
[2019-08-10] MEDS: METOPROLOL SUCC 25MG EXT REL TAB PO SCH (07:50)
[2019-08-10] MEDS: DOCUSATE SODIUM 100 MG CAP PO SCH (08:01)
[2019-08-10] MEDS: NON-FORMULARY MEDICATION (Hydroxychloroquine Sulfate 200 MG) PO SCH (09:49)
[2019-08-10] MEDS: HYDROXYCHLOROQUINE SULFATE 200 MG TAB PO SCH (10:53)
[2019-08-11] MEDS ORDERED: HYDROXYCHLOROQUINE SULFATE 200 MG TAB PO SCH (09:00)
--- NOTE | 2019-08-18 15:39 | Discharge Summary ---
Date of Service August 10, 2019 Admission HPI Per Admitting Provider The patient is a 78-year-old female with a past medical history including bowel obstruction, protein calorie malnutrition, colostomy, pneumonia, hypertension, bright red blood per rectum, CVA, GI bleed, pelvic abscess, acute blood loss anemia, duodenal ulcer, seropositive rheumatoid arthritis, anxiety, cardiomyopathy, chronic obstructive asthma, hypertension, multiple abdominal hernias, intraoperative ureteral injury, long-term use of hydroxychloroquine, Sjogren's syndrome, history of colostomy reversal and asthma. The patient presents to the emergency department with acute onset of severe abdominal pain with nausea and vomiting. Work-up in the emergency department included laboratories with a WBC of 15.35 with left shift, chronic hyponatremia with sodium 130, glucose of 168. CT of abdomen and pelvis without contrast read as the following: Status post distal colon resection. Large left ventral hernia containing dilated left colon and dilated small bowel. Additional moderate ventral hernia containing dilated cecum and dilated small bowel. The upstream small bowel loops are dilated with air-fluid levels. The distal small bowel are decompressed. Findings are concerning for obstruction probably due to the ventral hernias. No free air or free fluid. Moderate atherosclerosis of the aorta. Multilevel degenerative changes of the spine. Bibasilar atelectasis. Possible punctate gallstone in the gallbladder. No evidence of cholecystitis. No biliary dilatation. Principal Diagnosis Small bowel obstruction Discharge Exam Constitutional WD/WN, vitals as above Eyes EOM intact bilaterally; no conjunctival abnormality ENMT external ear and nose normal, oropharynx normal Neck trachea midline, no thyromegaly normal visual inspection Respiratory normal respiratory effort, lungs clear to auscultation no respiratory distress Cardiovascular RRR, no murmur, no edema Gastrointestinal (Abdomen) Inspection/Auscultation: abdomen normal to inspection and normal bowel sounds; abdomen not distended Percussion/Palpation: abdomen soft; abdomen nontender Musculoskeletal no cyanosis or clubbing, extremities motor strength 5/5 Skin no rashes, warm and dry Neurologic moves all extremities and awake Cranial Nerves: + abnormal facial strength (Facial asymmetry) Psychiatric Orientation: alert, oriented to person and cooperative Discharge Data Allergies Allergy/AdvReac Type Severity Reaction Status Date / Time codeine Allergy Mild DIZZINESS Verified 08/01/19 04:03 latex Allergy Mild RASH Verified 08/01/19 04:03 moxifloxacin Allergy Mild PAIN IN Verified 08/01/19 04:03 HEEL nickel Allergy Mild RASH ON Verified 08/01/19 04:03 EARS WITH EARRINGS WITH NICKEL Sulfa (Sulfonamide Allergy Mild Rash Verified 08/01/19 04:03 Antibiotics) banana Allergy Unknown RASH Verified 08/01/19 04:03 Cipro Allergy Unknown PASSED Verified 11/16/17 08:18 OUT, SEVERE RXN PER PATIENT ciprofloxacin Allergy Unknown PASSED Verified 08/01/19 04:03 OUT, SEVERE RXN PER PATIENT nut - unspecified Allergy Unknown HIVES Verified 08/01/19 04:03 fluconazole AdvReac Intermediate TACHYCARDIA, Verified 08/01/19 04:03 HAIR LOSS adhesive AdvReac Mild CONTACT Verified 08/01/19 04:03 DERMATITIS Consultations 08/01/19 06:01 ED Decision to Admit Stat 08/01/19 07:54 Consult Case Management - Discharge Planning Routine Consult General Surgery Routine Ordered Studies 08/01/19 03:09 CT abd pelvis wo con Urgent 08/03/19 12:30 CT head/brain wo con Urgent Hospital Course (1) Ventral hernia with bowel obstruction: Obstruction appears to have resolved, patient now tolerating a low fiber diet. - She was given a two doses of MiraLAX on 08/05. - Continue senna PO. - Doing well with bowel regimen. Soft, non-painful. Non-bloody. Discussed home bowel regimen prior to discharge. (2) HTN (hypertension): Patient's lisinopril was recently increased to [address] Herring who reports she does well with diuretics. - Continue lisinopril & metoprolol - Switched to meds to BID to help improve her AM blood pressures. - Added HCTZ on 08/[address] Herring's recommendation. Will follow up with her PCP. (3) UTI (urinary tract infection): UA on 08/02 indicated infection. Urine culture grew E. coli.that was sensitive to ceftriaxone. - Finished course on 08/06 -> No real indication this was infective anyhow as she had no fever, no leukocytosis, and no symptoms. (4) Sjogrens syndrome: Seropositive RA/Sjogren's syndrome - Restarted hydroxychloroquine on 08/07. - Continue home prednisone 5 mg PO daily (5) Chronic obstructive asthma: No major flare recently. - Continue home LABA/ICS - DuoNebs PRN (6) DVT prophylaxis: Lovenox 40 mg SQ daily Total Time Total Time Spent Total Time Spent (In Minutes): 35 Discharge Plan Discharge Items Patient Disposition: Home - Home Health Services Reason For Visit: SBO Discharge Diagnosis: Small juliann obstruction; hypertension Activity: Resume your previous activity Non-emergency contact: Primary Care Provider Call non-emergency contact if: you have any medication questions and your symptoms worsen Follow-up/Referrals: Jamin Herring MD [Primary Care Provider] - Diet: Heart Healthy Addtl Attending Provider Instructions: You were admitted with a small bowel obstruction. Luckily, this resolved without surgery, and you were able to resume your normal diet. You then had some constipation which we improved with stool softeners and a bisacodyl suppository. All these medications are actually over the counter and can be picked up at your normal pharmacy. Your blood pressure was high here, and we started a new medication called hydrochlorothiazide. Dr. Herring has used this in the past, and he feels it has worked well. Please take this medication in the mornings as it can sometimes cause extra need to urinate. We also split your lisinopril into 2 doses to try to smooth out your blood pr essure as it was high in the morning. Please take lisinopril 10 mg by mouth in the morning and at night. Dr. Herring can adjust this dose if your blood pressure remains high. Finally, please take your blood pressure once per day. There is no need to take it 3 and 4 times per day. If you take it once per day around 10am, sit calmly for a few minutes, then take your blood pressure with your feet flat on the ground. Please chart your blood pressures and follow up with Dr. Herring early next week. Pending Studies at Discharge: No Stand-Alone Forms: [employer], Smoking Cessation Medications and DC Order Prescriptions: New hydrochlorothiazide 25 mg Tablet 25 mg PO QAM Qty: 30 RF: 0 Continued Symbicort 160-4.5 mcg/actuation HFA aerosol inhaler 2 puff Inhalation BID Qty: 3 RF: 3 calcium citrate 250 mg calcium tablet 250 mg PO QPM RF: 0 albuterol sulfate [Ventolin HFA] 90 mcg/actuation HFA aerosol inhaler 2 puffs INH Q6H PRN (Reason: Shortness Of Breath) RF: 0 cannabidiol (CBD) extract 1 dose PO HS RF: 0 ipratropium-albuterol 0.5 mg-3 mg(2.5 mg base)/3 mL solution for nebulization 3 ml NEB QIDR PRN (Reason: Wheezing) RF: 0 prednisone 5 mg tablet 10 mg PO QAM RF: 0 hydroxychloroquine [Plaquenil] 200 mg Tablet 200 mg PO QAM RF: 0 magnesium oxide 400 mg Capsule 400 mg PO QPM RF: 0 metoprolol succinate 25 mg tablet extended release 24 hr 12.5 mg PO BID RF: 0 cholecalciferol (vitamin D3) [Vitamin D3] 25 mcg (1,000 unit) tablet 5,000 units PO QAM RF: 0 docusate sodium [Colace] 100 mg Capsule 100 mg PO DAILY RF: 0 multivitamin Tablet 1 tab PO QPM RF: 0 Changed lisinopril 10 mg tablet 10 mg PO BID Qty: 60 RF: 0 Discharge Orders: Discharge Order (Routine); Ordered 08/10/19 Ordered By: Rip Hall Admission Data Admit Date/Time: 08/01/19 06:05 Attending Provider: Rip Hall Admit Provider: Liu Perkins Primary Care Provider: Jamin Herring Other Providers: Germain Ag ; Rip Hall Other Interventions: Discharge Summary Assessment (RN) Last Done: 08/10/19 13:50 DC Date/Time DO NOT enter until pt leaves facility: 08/10/19 14:41 Coding Level of Care Code D/C Day Management >30 mins Diagnoses Ventral hernia with bowel obstruction K43.6 HTN (hypertension) I10 UTI (urinary tract infection) N39.0 Sjogrens syndrome M35.00 Chronic obstructive asthma J44.9 DVT prophylaxis Z29.9
== END 2019-08-10 14:41 | disposition home health service (06) | DRG 394 ==
LOC: ED 02:43 → 2S 06:05 → SUATTDRO 06:05 → 2S 07:35

== ENCOUNTER 2020-07-25 04:07 | Inpatient (IN) ==
--- NOTE | 2020-07-25 04:15 | Emergency Department Note ---
Impression & Plan Partial small bowel obstruction ED Provider Note NAME: PATTY LIANG AGE: 79 SEX: F ARRIVES VIA: Ambulance INFORMANT: Patient ED PROVIDER(S): Dr. Dickinson CHIEF COMPLAINT: Nausea and vomiting; abdominal pain PLAN: Disposition: Admitted to the [facility] Hospitalist service Condition: Fair MEDICAL DECISION MAKING: This is an 79-year-old female patient who presents to the emergency department with diffuse abdominal pain. The patient has a history of small bowel obstructions with a previous ventral hernia. Laboratory studies reveal a moderate leukocytosis and mild hyponatremia. CT scan of the abdomen/pelvis confirm another partial small bowel obstruction. The case was discussed with the [facility] hospitalist and they will evaluate for further management. Triage Nursing notes reviewed and agree with them. Prior medical records reviewed Vital Signs: reviewed and remarkable for hypertension Differential diagnosis: Incarcerated hernia; small bowel obstruction; gastritis, colitis ER treatment provided: IV Dilaudid IV normal saline IV Zofran Diagnostics interpreted by me: ECG: Normal sinus rhythm at a rate of 87 with PACs. I compared this EKG to one from July 2018 and there is significant changes. Today's EKG shows ST segment depression in the inferior and lateral leads Cardiac Monitoring: Normal sinus rhythm at 90 Laboratory studies: See below Imaging studies: As per stat rad CT abdomen/pelvis: Basilar discoid atelectasis, left more than right. Large left-sided ventral hernia measuring 17.9 cm in diameter, containing stomach multiple loops of small and large bowel. There is partial distal small bowel obstruction with transition point located within the right paramedian ventral hernia located in the right lower quadrant. Severe degenerative disc disease changes in the lumbar spine with posterior osteophyte complexes most predominantly at L4/5 junction causing mild to moderate spinal canal stenosis HPI: 79/F arrives for evaluation of diffuse abdominal pain, nausea and vomiting. Patient states that she had her first Covid vaccine yesterday and felt somewhat flushed afterwards. She then developed nausea and vomiting around 7 PM last evening. The patient then developed diffuse abdominal pain that she rated as a 9/10. The patient states that this pain does remind her of her previous bowel obstructions. The patient had a cardiac cath a couple of years ago which was negative. ROS: See above HPI for pertinent positives & negatives. A total of 10 systems reviewed and were otherwise negative. PAST MEDICAL HISTORY:Small bowel obstruction, ventral hernia, asthma, hypertension PAST SURGICAL HISTORY:See Below FAMILY HISTORY:See Below SOCIAL HISTORY:See Below HOME MEDICATIONS:See list ALLERGIES:See list VITALS:See Below PHYSICAL EXAMINATION: HEENT: Head - normocephalic and atraumatic Pupils are equal, round, and reactive to light. Extraocular eye muscles are intact, and sclera are anicteric. Nose - moist nasal mucosa without discharge. Mouth - moist buccal mucosa. Oropharynx is nonerythematous and there is no tonsillar exudate or edema noted. Neck: Supple; no JVD or cervical lymphadenopathy Heart: Regular rate and rhythm. There is a normal S1 and S2 with no murmurs, clicks, or gallops appreciated. Lungs: Clear to auscultation bilaterally with no wheezes, rales, or rhonchi. Abdomen: Soft, diffusely tender with a fullness in the left lower quadrant of the abdomen. Extremities: No evidence of cyanosis, clubbing, or edema. There are easily palpable peripheral pulses. Skin: warm and dry with good turgor and no rashes. ED COURSE: Times/Reassessments: 0410: The patient was evaluated in room C6. A complete history and physical was performed. An IV lock was initiated and labs were drawn as above. Previous electronic medical records were reviewed. An order was placed for continuous cardiac monitoring. The patient was in a normal sinus rhythm at a rate of 90. A twelve-lead EKG was obtained. An order was placed for IV Dilaudid, IV Zofran and IV normal saline solution. Patient will go for CT scan of the abdomen/pelvis 0610: Patient was reevaluated at this time and remains comfortable. She has had no further vomiting. I reviewed the results of the laboratory studies and the CT scan with the patient. I will discussed the case with the [facility] hospitalist. 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 Stroke like symptoms. History of intestinal obstruction Hx of lower gastrointestinal bleeding 2019-RESOLVED Incisional hernia without obstruction or gangrene Intraoperative ureteral injury PT DENIES Long-term use of hydroxychloroquine Multiple pulmonary nodules DUE TO RA Peptic ulcer disease Rheumatoid lung FOLLOWS DR. KAMARA ([facility]) SOB (shortness of breath) on exertion Surgical History History of colonoscopy History of colostomy History of colostomy reversal ETT#7, Glidescope #3, Grade 1 View - attempt x 1, atraumatic > REVERSED History of esophagogastroduodenoscopy (EGD) History of facial surgery History of partial colectomy History of tonsillectomy and adenoidectomy History of total knee arthroplasty RIGHT Hx of right heart catheterization 2018 [facility] > NO STENTS Status post right foot surgery 2012 AT [place] Ventral hernia with bowel obstruction Family History Mother Asthma Heart disease Renal failure Brother Heart disease Father Pneumonia Other History of section Ventral hernia with bowel obstruction Social History Smoking Status: Never smoker Years Smoked: 2; Second Hand Exposure: No; Hx Alcohol Use: No Hx Substance Use: No Preferred Language: Prydeinig Communication Ability: Effective Visual Impairment: No Limitations Artist'S Manager Required: No Beliefs That Will Affect Care: Spiritual marital status: Single Current Living Situation: Alone current occupational status: retired Feels Safe at Home: Yes Seatbelt Use: always Assistive Devices: None Allergies Allergies Allergy/AdvReac Type Severity Reaction Status Date / Time ciprofloxacin Allergy Severe PASSED Verified 07/25/20 05:21 OUT, SEVERE RXN PER PATIENT nut - unspecified Allergy Intermediate HIVES Verified 07/25/20 05:21 banana Allergy Mild RASH Verified 07/25/20 05:21 latex Allergy Mild RASH Verified 07/25/20 05:21 moxifloxacin Allergy Mild PAIN IN Verified 07/25/20 05:21 HEEL nickel Allergy Mild RASH ON Verified 07/25/20 05:21 EARS WITH EARRINGS WITH NICKEL Sulfa (Sulfonamide Allergy Mild Rash Verified 07/25/20 05:21 Antibiotics) fluconazole AdvReac Intermediate TACHYCARDIA, Verified 07/25/20 05:21 HAIR LOSS adhesive AdvReac Mild CONTACT Verified 07/25/20 05:21 DERMATITIS codeine AdvReac Mild DIZZINESS Verified 07/25/20 05:21 Home Meds Home Medications Medication Instructions Recorded Confirmed hydroxychloroquine [Plaquenil] 200 mg PO QAM 06/21/18 07/25/20 magnesium oxide 400 mg PO QPM 06/21/18 07/25/20 albuterol sulfate 90 mcg/actuation 2 puffs INH Q6H PRN 12/13/18 07/25/20 aerosol inhaler cholecalciferol (vitamin D3) 25 5,000 units PO QAM tab 04/25/19 07/25/20 mcg (1,000 unit) tablet ipratropium-albuterol 3 ml NEB QIDR PRN 05/22/19 07/25/20 docusate sodium [Colace] 100 mg PO DAILY 07/21/19 07/25/20 multivitamin 1 tab PO QPM 07/21/19 07/25/20 hydrochlorothiazide 25 mg PO Q OTHER DAY 07/25/20 07/25/20 Previous Rx's Medication Instructions Recorded metoprolol succinate 25 mg 12.5 mg PO BID #90 tab 09/12/19 tablet,extended release 24 hr budesonide-formoterol HFA 160 2 puff INHALATION BID #3 inhaler 10/24/19 mcg-4.5 mcg/actuation aerosol inhaler lisinopril 10 mg tablet 10 mg PO BID #180 tab 11/14/19 prednisone 1 mg tablet 3 mg PO DAILY #90 tab 02/07/20 Results & Data (ED) Vital Signs Vital Signs - 24 hr 07/25/20 04:07 07/25/20 04:10 07/25/20 04:12 Temperature 36.5 C Temperature Source Oral Pulse Rate 99 H 95 H Pulse Rate from SpO2 Sensor Respiratory Rate 16 24 Respiratory Effort / Characteristics Non-Labored Spontaneous Respiratory Depth Normal Respiratory Pattern Regular Blood Pressure 181/99 H 181/99 H Blood Pressure Mean 126 126 Blood Pressure Position Lying Pulse Oximetry 88 L 93 93 Oxygen Delivery Method Room Air Nasal Cannula Nasal Cannula Oxygen Flow Rate 2 2 Sepsis Recent Fever Within 48 Hours No Sepsis New/Unexplained Change in Mental Status No Sepsis Action Taken by Nursing No Action Required 07/25/20 05:36 07/25/20 06:00 07/25/20 06:19 Temperature Temperature Source Pulse Rate 67 66 68 Pulse Rate from SpO2 Sensor 66 Respiratory Rate 19 15 15 Respiratory Effort / Characteristics Respiratory Depth Respiratory Pattern Blood Pressure 154/66 H 142/61 H 142/61 H Blood Pressure Mean 95 88 88 Blood Pressure Position Pulse Oximetry 100 100 99 Oxygen Delivery Method Nasal Cannula Nasal Cannula Oxygen Flow Rate 2 2 Sepsis Recent Fever Within 48 Hours Sepsis New/Unexplained Change in Mental Status Sepsis Action Taken by Nursing 07/25/20 06:30 Temperature Temperature Source Pulse Rate 78 Pulse Rate from SpO2 Sensor 77 Respiratory Rate 19 Respiratory Effort / Characteristics Respiratory Depth Respiratory Pattern Blood Pressure 127/66 Blood Pressure Mean 86 Blood Pressure Position Pulse Oximetry 97 Oxygen Delivery Method Oxygen Flow Rate Sepsis Recent Fever Within 48 Hours Sepsis New/Unexplained Change in Mental Status Sepsis Action Taken by Nursing Laboratory Data Result diagrams: 07/25/20 04:27 07/25/20 04:27 Lab Results 07/25/20 07/25/20 Range/Units 04:27 04:27 WBC 17.51 H (4.8-10.8) K/uL RBC 4.53 (4.2-5.4) M/uL Hgb 13.7 (12.0-16.0) g/dL Hct 40.1 (37-47) % MCV 88.5 (80-100) fL MCH 30.2 (25-34) pg MCHC 34.2 (32-36) g/dL RDW Std Deviation 44.5 (36.4-46.3) fL RDW Coeff of Chauncey 13.6 (11.5-14.5) % Plt Count 331 (130-400) K/uL MPV 9.5 (7.4-10.4) fL Immature Gran % (Auto) 0.2 % Neut % (Auto) 89.2 % Lymph % (Auto) 7.0 % Upson % (Auto) 3.4 % Eos % (Auto) 0.1 % Baso % (Auto) 0.1 % Neut # (Auto) 15.61 H (1.4-6.5) K/uL Lymph # (Auto) 1.23 (1.2-3.4) K/uL Upson # (Auto) 0.60 H (0.11-0.59) K/uL Eos # (Auto) 0.01 (0-0.5) K/uL Baso # (Auto) 0.02 (0-0.2) K/uL Immature Gran # (Auto) 0.04 H (0.00-0.02) K/uL Sodium 133 L (136-145) mmol/L Potassium (3.5-5.1) mmol/L Chloride 98 (98-107) mmol/L Carbon Dioxide 28 (21-32) mmol/L Anion Gap 7.0 (3-11) BUN 13 (7-18) mg/dl Creatinine 0.48 L (0.6-1.2) mg/dl Est Cr Clr Drug Dosing 92.2 ml/min Est GFR ( Amer) 107.4 Est GFR (Non-Af Amer) 92.6 BUN/Creatinine Ratio 27.9 H (10-20) Glucose 132 H (70-99) mg/dl Calcium 9.1 (8.5-10.1) mg/dl Total Bilirubin 0.6 (0.2-1) mg/dl AST (15-37) U/L ALT 21 (12-78) U/L Alkaline Phosphatase 78 (45-117) U/L Troponin I < 0.015 (0-0.045) ng/ml Total Protein 7.7 (6.4-8.2) gm/dl Albumin 3.7 (3.4-5.0) gm/dl Globulin 4.0 (2.5-4.0) gm/dl Albumin/Globulin Ratio 0.9 (0.9-2) Lipase 84 (73-393) U/L Administered Medications Enoxaparin Sodium (Enoxaparin Inj 30 Mg/0.3 Ml Syr) 30 mg SQ Q24H HOWIE Stop: 08/24/20 11:59 Last Admin: 07/25/20 12:34 Dose: Not Given Documented by: [id number] Fluticasone/Vilanterol (Fluticasone/Vilanterol 200/25mcg 14 Puffs/Inhaler) 1 puffs INH DAILY HOWIE; Protocol Stop: 08/24/20 11:59 Last Admin: 07/25/20 12:32 Dose: Not Given Documented by: [id number] Lactated Ringer's (Lr) 1,000 mls @ 80 mls/hr IV .[id number] HOWIE Stop: 07/26/20 12:13 Last Admin: 07/25/20 11:53 Dose: 80 mls/hr Documented by: [id number] Morphine Sulfate (Morphine Sulfate 2 Mg/Ml Carp) 1 mg IV Q2H PRN PRN Reason: Pain Stop: 08/08/20 11:13 Last Admin: 07/25/20 16:27 Dose: 1 mg Documented by: [id number] Admin: 07/25/20 13:56 Dose: 1 mg Documented by: [id number] Ondansetron HCl (Ondansetron Inj 2 Mg/Ml 2 Ml Vial) 4 mg IV Q6H PRN PRN Reason: Nausea And Vomiting Stop: 08/24/20 11:13 Last Admin: 07/25/20 18:00 Dose: 4 mg Documented by: [id number] Admin: 07/25/20 11:52 Dose: 4 mg Documented by: [id number] Prednisone (Prednisone 1 Mg Tab) 3 mg PO DAILY HOWIE Stop: 08/24/20 11:13 Last Admin: 07/25/20 12:02 Dose: Not Given Documented by: [id number] Discontinued Medications Hydromorphone HCl (Hydromorphone Inj 0.5 Mg/0.5 Ml Syr) 0.5 mg IV Q15M PRN PRN Reason: Pain Stop: 08/08/20 04:36 Last Admin: 07/25/20 10:31 Dose: 0.5 mg Documented by: [id number] Admin: 07/25/20 07:28 Dose: 0.5 mg Documented by: [id number] Admin: 07/25/20 04:44 Dose: 0.5 mg Documented by: [id number] Sodium Chloride (Nss) 500 mls @ 999 mls/hr IV .Q31M STA Stop: 07/25/20 05:07 Last Infusion: 07/25/20 05:40 Dose: 0 mls/hr Documented by: [id number] Admin: 07/25/20 04:44 Dose: 999 mls/hr Documented by: [id number] Ioversol (Ioversol 100ml) 100 ml IV ONCE ONE Stop: 07/25/20 05:34 Last Admin: 07/25/20 05:33 Dose: 93 ml Documented by: [id number] Metoprolol Tartrate (Metoprolol Tartrate 1 Mg/Ml Vial) 5 mg IV Q6 HOWIE Stop: 08/24/20 11:59 Last Admin: 07/25/20 17:02 Dose: Not Given Documented by: [id number] Admin: 07/25/20 12:33 Dose: Not Given Documented by: [id number] Ondansetron HCl (Ondansetron Inj 2 Mg/Ml 2 Ml Vial) 4 mg IV NOW STA Stop: 07/25/20 04:38 Last Admin: 07/25/20 04:44 Dose: 4 mg Documented by: [id number] Discharge Plan Visit Data Chief Complaint: Abdominal Pain Stated Complaint: ABDOMINAL PAIN ED Provider: Janet Dickinson Discharge Problem: Partial small bowel obstruction Patient Disposition: Admitted As Inpatient Discharge Instructions Interventions: ED Discharge Assessment Last Done: 07/25/20 10:39
[2020-07-25] MEDS ORDERED: ONDANSETRON INJ 2 MG/ML 2 ML VIAL IV STA (04:37)
[2020-07-25] MEDS ORDERED: SODIUM CHLORIDE 0.9% 500 ML IV STA (04:37)
[2020-07-25] MEDS: HYDROmorphone INJ 0.5 MG/0.5 ML SYR IV PRN ×3 (04:44→10:31)
[2020-07-25 04:49] LABS: Basophils # (auto) 0.02 K/uL (0-0.2); Basophils % (auto) 0.1 %; Eosinophils # (auto) 0.01 K/uL (0-0.5); Eosinophils % (auto) 0.1 %; Hematocrit (blood only) 40.1 % (37-47); Hemoglobin 13.7 g/dL (12.0-16.0); Immature Granulocytes # (auto) 0.04 K/uL (0.00-0.02); Immature Granulocytes % (auto) 0.2 %; Lymphocytes # (auto) 1.23 K/uL (1.2-3.4); Mean Corpuscular Hemoglobin 30.2 pg (25-34); Mean Corpuscular Hgb Conc 34.2 g/dL (32-36); Mean Corpuscular Volume 88.5 fL (80-100); Mean Platelet Volume 9.5 fL (7.4-10.4); Monocytes % (auto) 3.4 %; Neutrophils # (auto) 15.61 K/uL (1.4-6.5); Neutrophils % (auto) 89.2 %; Platelet Count 331 K/uL (130-400); RDW Coefficient of Variation 13.6 % (11.5-14.5); RDW Standard Deviation 44.5 fL (36.4-46.3); Red Blood Count 4.53 M/uL (4.2-5.4); White Blood Count 17.51 K/uL (4.8-10.8)
[2020-07-25 05:11] LABS: Alanine Aminotransferase 21 U/L (12-78); Albumin Globulin Ratio 0.9 (0.9-2); Albumin Level 3.7 gm/dl (3.4-5.0); Alkaline Phosphatase 78 U/L (45-117); BUN Creatinine Ratio 27.9 (10-20); Bilirubin,Total 0.6 mg/dl (0.2-1); Blood Urea Nitrogen 13 mg/dl (7-18); Calcium 9.1 mg/dl (8.5-10.1); Carbon Dioxide 28 mmol/L (21-32); Chloride 98 mmol/L (98-107); Creatinine Clr Calc Pharmacy 92.2 ml/min; Est GFR (African American) 107.4; Est GFR (Non-African American) 92.6; Glucose 132 mg/dl (70-99); Lipase 84 U/L (73-393); Sodium 133 mmol/L (136-145); Total Protein 7.7 gm/dl (6.4-8.2); Troponin I < 0.015 ng/ml (0-0.045)
[2020-07-25] MEDS ORDERED: OPTIRAY 320 100ml IV ONE (05:33)
--- NOTE | 2020-07-25 07:00 | History & Physical Report ---
Date of Service July 25, 2020 Assessment & Plan (1) Partial small bowel obstruction: 79yo C female with partial SBO, abdominal wall hernias. Pain and nausea presently well controlled -Admit to medical with telemetry -NPO. No NGT at this time as patient is not distended, no nausea -IVF with LR at 80mL/hr x 2 liters -Monitor electrolytes and replete as needed -Zofran PRN nausea -Morphine 1mg IV q 2 hours PRN pain -General Surgery consultation appreciated Present on Admission?: Yes (2) Seropositive rheumatoid arthritis: Chronic. Stable -Continue steroids -Low risk for stress dosing should patient become hypotensive Present on Admission?: Yes (3) Chronic systolic CHF (congestive heart failure): Patient appears mildly hypovolemic on exam -Continue to monitor Present on Admission?: Yes (4) HTN (hypertension): Blood pressure slightly elevated in setting of acute pain -Hold Lisinopril, HCTZ and PO metoprolol -Metoprolol 5mg IV q 6 hours F/E?N - LR at 80mL/hr, monitor electrolytes and replete as needed, NPO Ppx - Lovenox Code - DNR/DNI Dispo - Admit to medical with telemetry Present on Admission?: Yes History of Present Illness Chief Complaint: abdominal pain Primary Care Provider: Jamin Herring MD Ranjit Zepeda is a pleasant 79yo female with history of ventral, abdominal wall hernia, prior history of SBO presenting with the same. Patient received her first Covid-19 shot yesterday after which she felt mildly "flush", febrile with myalgias. She developed severe nausea yesterday around 19:00 with several episodes of non-bloody vomiting. She then developed severe abdominal pain in right abdomen. She is not passing flatus. Last BM was yesterday AM. Patient reports feeling slightly short of breath when the pain was intense, otherwise no complaints. She denies chest pain/palpitations. Nausea is improv ed. Pain is fairly well controlled at present. ER Course: Zofran 4mg IV, Dilaudid0.5mg IV, NSS 500mL Allergies Allergy/AdvReac Type Severity Reaction Status Date / Time ciprofloxacin Allergy Severe PASSED Verified 07/25/20 05:21 OUT, SEVERE RXN PER PATIENT nut - unspecified Allergy Intermediate HIVES Verified 07/25/20 05:21 banana Allergy Mild RASH Verified 07/25/20 05:21 latex Allergy Mild RASH Verified 07/25/20 05:21 moxifloxacin Allergy Mild PAIN IN Verified 07/25/20 05:21 HEEL nickel Allergy Mild RASH ON Verified 07/25/20 05:21 EARS WITH EARRINGS WITH NICKEL Sulfa (Sulfonamide Allergy Mild Rash Verified 07/25/20 05:21 Antibiotics) fluconazole AdvReac Intermediate TACHYCARDIA, Verified 07/25/20 05:21 HAIR LOSS adhesive AdvReac Mild CONTACT Verified 07/25/20 05:21 DERMATITIS codeine AdvReac Mild DIZZINESS Verified 07/25/20 05:21 Home Medications Medication Instructions Recorded Confirmed Type hydroxychloroquine [Plaquenil] 200 mg PO QAM 06/21/18 07/25/20 History magnesium oxide 400 mg PO QPM 06/21/18 07/25/20 History albuterol sulfate 90 mcg/actuation 2 puffs INH Q6H PRN 12/13/18 07/25/20 History aerosol inhaler cholecalciferol (vitamin D3) 25 5,000 units PO QAM tab 04/25/19 07/25/20 History mcg (1,000 unit) tablet ipratropium-albuterol 3 ml NEB QIDR PRN 05/22/19 07/25/20 History docusate sodium [Colace] 100 mg PO DAILY 07/21/19 07/25/20 History multivitamin 1 tab PO QPM 07/21/19 07/25/20 History metoprolol succinate 25 mg 12.5 mg PO BID #90 tab 09/12/19 07/25/20 Rx tablet,extended release 24 hr budesonide-formoterol HFA 160 2 puff INHALATION BID #3 inhaler 10/24/19 07/25/20 Rx mcg-4.5 mcg/actuation aerosol inhaler lisinopril 10 mg tablet 10 mg PO BID #180 tab 11/14/19 07/25/20 Rx prednisone 1 mg tablet 3 mg PO DAILY #90 tab 02/07/20 07/25/20 Rx hydrochlorothiazide 25 mg PO Q OTHER DAY 07/25/20 07/25/20 History Past Med/Surg History Medical History Acute diverticulitis Atopic dermatitis Bronchitis Eczema 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 Stroke like symptoms. History of intestinal obstruction Hx of lower gastrointestinal bleeding 2019-RESOLVED Incisional hernia without obstruction or gangrene Intraoperative ureteral injury PT DENIES Long-term use of hydroxychloroquine Multiple pulmonary nodules DUE TO RA Peptic ulcer disease Rheumatoid lung FOLLOWS DR. KAMARA ([facility]) SOB (shortness of breath) on exertion Surgical History History of colonoscopy History of colostomy History of colostomy reversal ETT#7, Glidescope #3, Grade 1 View - attempt x 1, atraumatic > REVERSED History of esophagogastroduodenoscopy (EGD) History of facial surgery History of partial colectomy History of tonsillectomy and adenoidectomy History of total knee arthroplasty RIGHT Hx of right heart catheterization 2018 [facility] > NO STENTS Status post right foot surgery 2011 AT [place] Ventral hernia with bowel obstruction Family History Mother Asthma Heart disease Renal failure Brother Heart disease Father Pneumonia Other History of section Ventral hernia with bowel obstruction Social History Smoking Status: Never smoker Years Smoked: 2; Second Hand Exposure: Yes; Hx Alcohol Use: Yes Alcohol type: wine Hx Substance Use: No Preferred Language: Albanian Communication Ability: Effective Visual Impairment: No Limitations Verse Writer Required: No Beliefs That Will Affect Care: None marital status: Single Current Living Situation: Alone current occupational status: retired Feels Safe at Home: Yes Seatbelt Use: always Assistive Devices: Walker Review of Systems Review of Systems: All systems reviewed & are unremarkable except as noted in HPI & below Physical Exam Physical Exam: General: frail, elderly patient resting comfortably, NAD, non- toxic in appearance, AA&O x 4 Skin: warm, dry, intact, no rashes or lesions HEENT: Facial nerve palsy, dysconjugate gaze, external ear normal to inspection and nontender, nares patent, dry mucus membranes, dentition intact, no oropharyngeal lesions, neck supple, trachea midline, no LAD, no thyromegaly, no JVD Heart: +S1/S2, regular, no m/r/g Lungs: equal air entry bilaterally, no rales/rhonchi/wheezes Abd: soft, ND, absent bowl sounds, ventral hernia reducible, right sided abdominal hernia, slightly firm and tender to palpation with voluntary guarding Ext: warm, 2+ pulses in UE/LE bilaterally, no clubbing/cyanosis or edema Neuro: moving all extremities Results & Data Results & Data ([facility]) Vital Signs (Past 12 Hours) Vital Signs Temp Pulse Resp BP Pulse Ox 07/25/20 06:00 66 15 142/61 H 100 07/25/20 05:36 67 19 154/66 H 100 07/25/20 04:12 95 H 24 181/99 H 93 07/25/20 04:10 36.5 C 99 H 16 181/99 H 93 07/25/20 04:07 88 L Laboratory Results Lab Results 07/25/20 07/25/20 Range/Units 04:27 04:27 WBC 17.51 H (4.8-10.8) K/uL RBC 4.53 (4.2-5.4) M/uL Hgb 13.7 (12.0-16.0) g/dL Hct 40.1 (37-47) % MCV 88.5 (80-100) fL MCH 30.2 (25-34) pg MCHC 34.2 (32-36) g/dL RDW Std Deviation 44.5 (36.4-46.3) fL RDW Coeff of Chauncey 13.6 (11.5-14.5) % Plt Count 331 (130-400) K/uL MPV 9.5 (7.4-10.4) fL Immature Gran % (Auto) 0.2 % Neut % (Auto) 89.2 % Lymph % (Auto) 7.0 % Bryan % (Auto) 3.4 % Eos % (Auto) 0.1 % Baso % (Auto) 0.1 % Neut # (Auto) 15.61 H (1.4-6.5) K/uL Lymph # (Auto) 1.23 (1.2-3.4) K/uL Bryan # (Auto) 0.60 H (0.11-0.59) K/uL Eos # (Auto) 0.01 (0-0.5) K/uL Baso # (Auto) 0.02 (0-0.2) K/uL Immature Gran # (Auto) 0.04 H (0.00-0.02) K/uL Sodium 133 L (136-145) mmol/L Potassium (3.5-5.1) mmol/L Chloride 98 (98-107) mmol/L Carbon Dioxide 28 (21-32) mmol/L Anion Gap 7.0 (3-11) BUN 13 (7-18) mg/dl Creatinine 0.48 L (0.6-1.2) mg/dl Est Cr Clr Drug Dosing 92.2 ml/min Est GFR ( Amer) 107.4 Est GFR (Non-Af Amer) 92.6 BUN/Creatinine Ratio 27.9 H (10-20) Glucose 132 H (70-99) mg/dl Calcium 9.1 (8.5-10.1) mg/dl Total Bilirubin 0.6 (0.2-1) mg/dl AST (15-37) U/L ALT 21 (12-78) U/L Alkaline Phosphatase 78 (45-117) U/L Troponin I < 0.015 (0-0.045) ng/ml Total Protein 7.7 (6.4-8.2) gm/dl Albumin 3.7 (3.4-5.0) gm/dl Globulin 4.0 (2.5-4.0) gm/dl Albumin/Globulin Ratio 0.9 (0.9-2) Lipase 84 (73-393) U/L Diagnostic Findings CT Abdomen and Pelvis with Contrast: Bisilar discoid atelectasis, left more than right, large left sided ventral hernia measuring 17.9cm in diameter, containing stomach, multiple loops of small and large bowel. There is partial distal small bowel obstruction with transition point located within a right paramedian ventral hernia located in the right lower quadrant. Severe degenerative disc disease changes in the lumbar spine with posterior osteophyte complex most prominently at L4/L5 junction causing mild to moderate spinal canal stenosis. ECG Additional Comments: Sinus rhythm with PACs. LVH with hypertrophy and repolarization pattern. Code Status & VTE Plan VTE Prophylaxis Plan VTE Prophylaxis will be ordered: Yes PG Care Time/CCT Total # of Minutes Spent Total Time Spent with Patient: Total time spent is greater than 50% in coordination of care (as documented) at patient's floor/unit and/or counseling patient: Coding Level of Care Code 52630 Initial Inpt Care Lvl 3 Diagnoses Partial small bowel obstruction K56.600 Seropositive rheumatoid arthritis M05.9 Chronic systolic CHF (congestive heart failure) I50.22 HTN (hypertension) I10 Hypertension type: essential hypertension (1) HTN (hypertension) Hypertension type: essential hypertension Qualified Code(s): I10 - Essential (primary) hypertension
[2020-07-25 07:32] LABS: Appearance Urine Clear (Clear); Bacteria Urine Automated Negative (Negative); Bilirubin Urine Negative (Negative); Blood Urine Trace (Negative); Color Urine Yellow; Epithelial Cell Urine Auto 20-30 /lpf (0-5); Glucose Urine UA Negative (Negative); Ketones Urine 1+ (Negative); Leukocyte Esterase Urine Negative (Negative); Nitrite Urine Negative (Negative); Specific Gravity Urine > 1.045 (1.000-1.030); Urobilinogen Urine Negative (Negative); pH Urine 7.5 (4.5-7.5)
[2020-07-25 07:36] LABS: Protein Urine 2+ (Negative)
--- NOTE | 2020-07-25 07:56 | CT Scan Report ---
CT abd pelvis IV con only CLINICAL HISTORY: Diffuse abdominal pain COMPARISON STUDY: 07/25/2020 TECHNIQUE: Patient was scanned in a dynamic helical fashion during intravenous administration of 93 c c of Optiray 320 A dose lowering technique was utilized adhering to the principles of ALARA. CT DOSE: 247.93 mGy.cm FINDINGS: Lower chest: There is a 3 mm right lower lobe pulmonary nodule. There is bibasilar atelectasis/consol idation. The heart is enlarged. Liver: The contrast-enhanced liver is normal in size, contour, and attenuation. There is no intrahepa tic biliary ductal dilatation. The hepatic veins and portal veins are patent. Gallbladder: Lithiasis Spleen: Normal in size and attenuation. Pancreas: Unremarkable. Adrenal glands: Unremarkable. Kidneys: There is symmetric renal cortical enhancement. The kidneys are normal in size without hydron ephrosis. Bowel: There are dilated fluid-filled small bowel loops present. The distal small bowel is of normal caliber. There is a large left-sided ventral hernia containing a portion of stomach, small bowel and colon. The portion of stomach within the hernia sac is tethered and dilated. There is also a bowel co ntaining midline ventral hernia. There is a third right-sided infraumbilical bowel containing hernia. There is a transition zone at the level of this hernia. Peritoneum: There is no intraperitoneal free air or abdominal ascites. Vasculature: There is no evidence of abdominal aortic aneurysm. There are aortoiliac atheromatous stefano nges Adenopathy: None. Pelvic viscera: No abnormal pelvic masses are visualized. The uterus is either surgically absent or a trophic. Skeletal structures: No destructive osseous lesions are seen. IMPRESSION: 1. Persistent small bowel obstructive pattern 2. Multiple abdominal wall hernias 3. The site of obstruction is felt to be located within a right paramedian ventral hernia. ACT 112: Negative or not required by law. Electronically signed by: Jerry Hudson M.D. 07/25/2020 7:54 AM
[2020-07-25] MEDS: ONDANSETRON INJ 2 MG/ML 2 ML VIAL IV PRN ×2 (11:52→18:00)
[2020-07-25] MEDS: LACTATED RINGER'S 1,000 ML IV SCH (11:53)
[2020-07-25] MEDS: predniSONE 1 MG TAB PO SCH (12:02)
[2020-07-25 12:21] LABS: Magnesium 2.1 mg/dl (1.8-2.4)
--- NOTE | 2020-07-25 12:24 | Surgery Consultation ---
Date of Consultation July 25, 2020 Assessment & Plan (1) Partial small bowel obstruction: 79 year-old female presented to ED last evening with vomiting and abdominal pain with a history of ex lap ,sigmoid resection with end colostomy and colostomy reversal in 2014, development of complex large ventral hernias and loss of abdominal domain and recurrent SBO. CT scan showing evidence of SBO with possible transition in the right paramedian ventral hernia. Her left sided hernia contains portion of stomach, small, and large bowel. Given patient's comorbidities and loss of domain , she would not be a surgical candidate here at our facility. She has seen surgeon in [place] in the past and discussion of possible repair with her PCP but she is not interested in having surgical repair. She understands the risk ischemia, possible perforation, and due to incarcerated bowel but is still not interested in surgical repair and wants conservative treatment only. Plan: Given patient's complex abdominal hernias and loss of domain and Recurrent SBO, Dr. Carbone recommended to patient transfer to tertiary center for further management and repair of hernias. Patient has discussed possible surgery with [place] surgeon and PCP in the past and does not wish to proceed with any surgery given the risks. She is aware of the possible complications of incarcerated hernias. Would recommend NGT if patient has persistent vomiting. Continue medical management Our services signing off, please call with questions or concerns. (2) Ventral hernia with bowel obstruction: Dr. Carbone has seen and examined pt, agrees with above. History of Present Illness Reason for Consultation: SBO Requesting Physician: Rae Lares DO Attending Physician: Rip Hall MD Ranjit is a pleasant 79 year-old female with PMH of exlap with creation of Stanton's in 2014 with reversal of ostomy 3 months after, development of ventral hernia's, h/o GI bleed, CVA, CHF, RA, cardiomyopathy, Sjogren's who presented to the [facility] ED last evening due to multiple episodes of vomiting and right lower abdominal pain. She has history of multiple SBO's in the past and admissions with last being in July of 2019. She has been evaluated by [facility] surgery team as well as [facility] surgery in the past for SBO and felt to be a poor surgical candidate here at our facility due to her complex , large ventral hernias, loss of abdominal domain, and comorbidities. Ranjit states that she has seen surgeon in [place] for possible ventral hernia repair but felt to be at risk of mesh complication/infection. States she is not interested in surgery. Has been conservatively treated in past for SBO and would like to avoid any surgical management. Ranjit states she has not vomited since getting to hospital. Not passing gas and last bowel movement was yesterday morning. Allergies Allergy/AdvReac Type Severity Reaction Status Date / Time ciprofloxacin Allergy Severe PASSED Verified 07/25/20 05:21 OUT, SEVERE RXN PER PATIENT nut - unspecified Allergy Intermediate HIVES Verified 07/25/20 05:21 banana Allergy Mild RASH Verified 07/25/20 05:21 latex Allergy Mild RASH Verified 07/25/20 05:21 moxifloxacin Allergy Mild PAIN IN Verified 07/25/20 05:21 HEEL nickel Allergy Mild RASH ON Verified 07/25/20 05:21 EARS WITH EARRINGS WITH NICKEL Sulfa (Sulfonamide Allergy Mild Rash Verified 07/25/20 05:21 Antibiotics) fluconazole AdvReac Intermediate TACHYCARDIA, Verified 07/25/20 05:21 HAIR LOSS adhesive AdvReac Mild CONTACT Verified 07/25/20 05:21 DERMATITIS codeine AdvReac Mild DIZZINESS Verified 07/25/20 05:21 Home Medications Medication Instructions Recorded Confirmed Type hydroxychloroquine [Plaquenil] 200 mg PO QAM 06/21/18 07/25/20 History magnesium oxide 400 mg PO QPM 06/21/18 07/25/20 History albuterol sulfate 90 mcg/actuation 2 puffs INH Q6H PRN 12/13/18 07/25/20 History aerosol inhaler cholecalciferol (vitamin D3) 25 5,000 units PO QAM tab 04/25/19 07/25/20 History mcg (1,000 unit) tablet ipratropium-albuterol 3 ml NEB QIDR PRN 05/22/19 07/25/20 History docusate sodium [Colace] 100 mg PO DAILY 07/21/19 07/25/20 History multivitamin 1 tab PO QPM 07/21/19 07/25/20 History metoprolol succinate 25 mg 12.5 mg PO BID #90 tab 09/12/19 07/25/20 Rx tablet,extended release 24 hr budesonide-formoterol HFA 160 2 puff INHALATION BID #3 inhaler 10/24/19 07/25/20 Rx mcg-4.5 mcg/actuation aerosol inhaler lisinopril 10 mg tablet 10 mg PO BID #180 tab 11/14/19 07/25/20 Rx prednisone 1 mg tablet 3 mg PO DAILY #90 tab 02/07/20 07/25/20 Rx hydrochlorothiazide 25 mg PO Q OTHER DAY 07/25/20 07/25/20 History Patient History Medical History Acute diverticulitis Atopic dermatitis Bronchitis Eczema 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 Stroke like symptoms. History of intestinal obstruction Hx of lower gastrointestinal bleeding 2019-RESOLVED Incisional hernia without obstruction or gangrene Intraoperative ureteral injury PT DENIES Long-term use of hydroxychloroquine Multiple pulmonary nodules DUE TO RA Peptic ulcer disease Rheumatoid lung FOLLOWS DR. KAMARA ([facility]) SOB (shortness of breath) on exertion Surgical History History of colonoscopy History of colostomy History of colostomy reversal ETT#7, Glidescope #3, Grade 1 View - attempt x 1, atraumatic > REVERSED History of esophagogastroduodenoscopy (EGD) History of facial surgery History of partial colectomy History of tonsillectomy and adenoidectomy History of total knee arthroplasty RIGHT Hx of right heart catheterization 2018 [facility] > NO STENTS Status post right foot surgery 2011 AT [place] Ventral hernia with bowel obstruction Family History Mother Asthma Heart disease Renal failure Brother Heart disease Father Pneumonia Other History of section Ventral hernia with bowel obstruction Social History Smoking Status: Never smoker Years Smoked: 2; Second Hand Exposure: No; Hx Alcohol Use: No Hx Substance Use: No Preferred Language: Austrian Communication Ability: Effective Visual Impairment: No Limitations Manager Customer Service Required: No Beliefs That Will Affect Care: Spiritual marital status: Single Current Living Situation: Alone current occupational status: retired Feels Safe at Home: Yes Seatbelt Use: always Assistive Devices: None Physical Exam Constitutional: well nourished, cooperative and + lethargic; no acute distress and not ill appearing Respiratory: normal respiratory effort, lungs clear to auscultation Cardiovascular: RRR, no murmur, no edema Gastrointestinal (Abdomen): Inspection/Auscultation: + visible herniation (large left sided abdominal hernia, moderate right paramedial hernia,); abdomen not distended and + abnormal bowel sounds Percussion/Palpation: + abdomen tender and abdomen soft; no guarding and abdomen not rigid significant left sided hernia with loss of domain Skin: no rashes, warm and dry Psychiatric: Orientation: alert, oriented x 3 and cooperative Eye Contact: + poor eye contact Affect: + flat affect Results & Data ([facility]) Vital Signs (Past 12 Hours) Vital Signs Temp Pulse Pulse Pulse Resp BP BP 07/25/20 11:17 36.9 C 64 64 20 138/67 07/25/20 10:32 66 20 152/66 H 07/25/20 10:31 67 15 07/25/20 10:30 63 16 152/66 H 07/25/20 10:01 67 21 147/81 H 07/25/20 10:00 76 13 07/25/20 09:31 63 15 07/25/20 09:30 57 L 15 139/62 07/25/20 09:01 65 23 07/25/20 09:00 64 14 127/61 07/25/20 08:31 73 13 07/25/20 08:30 62 13 134/62 07/25/20 08:00 64 15 126/56 L 07/25/20 07:30 70 22 151/62 H 07/25/20 07:01 81 17 07/25/20 07:00 80 16 140/72 07/25/20 06:30 78 19 127/66 07/25/20 06:19 68 15 142/61 H 07/25/20 06:00 66 15 142/61 H 07/25/20 05:36 67 19 154/66 H 07/25/20 04:12 95 H 24 181/99 H 07/25/20 04:10 36.5 C 99 H 16 181/99 H 07/25/20 04:07 Pulse Ox 07/25/20 11:17 94 07/25/20 10:32 97 07/25/20 10:31 97 07/25/20 10:30 97 07/25/20 10:01 95 07/25/20 10:00 95 07/25/20 09:31 97 07/25/20 09:30 97 07/25/20 09:01 96 07/25/20 09:00 97 07/25/20 08:31 97 07/25/20 08:30 98 07/25/20 08:00 97 07/25/20 07:30 07/25/20 07:01 95 07/25/20 07:00 94 07/25/20 06:30 97 07/25/20 06:19 99 07/25/20 06:00 100 07/25/20 05:36 100 07/25/20 04:12 93 07/25/20 04:10 93 07/25/20 04:07 88 L Laboratory Results 07/25/20 07/25/20 07/25/20 Range/Units 11:51 07:25 07:25 WBC (4.8-10.8) K/uL RBC (4.2-5.4) M/uL Hgb (12.0-16.0) g/dL Hct (37-47) % MCV (80-100) fL MCH (25-34) pg MCHC (32-36) g/dL RDW Std Deviation (36.4-46.3) fL RDW Coeff of Chauncey (11.5-14.5) % Plt Count (130-400) K/uL MPV (7.4-10.4) fL Immature Gran % (Auto) % Neut % (Auto) % Lymph % (Auto) % [place] % (Auto) % Eos % (Auto) % Baso % (Auto) % Neut # (Auto) (1.4-6.5) K/uL Lymph # (Auto) (1.2-3.4) K/uL [place] # (Auto) (0.11-0.59) K/uL Eos # (Auto) (0-0.5) K/uL Baso # (Auto) (0-0.2) K/uL Immature Gran # (Auto) (0.00-0.02) K/uL Sodium (136-145) mmol/L Potassium (3.5-5.1) mmol/L Chloride (98-107) mmol/L Carbon Dioxide (21-32) mmol/L Anion Gap (3-11) BUN (7-18) mg/dl Creatinine (0.6-1.2) mg/dl Est Cr Clr Drug Dosing ml/min Est GFR ( Amer) Est GFR (Non-Af Amer) BUN/Creatinine Ratio (10-20) Glucose (70-99) mg/dl Calcium (8.5-10.1) mg/dl Phosphorus 4.0 (2.5-4.9) mg/dl Magnesium 2.1 (1.8-2.4) mg/dl Total Bilirubin (0.2-1) mg/dl AST (15-37) U/L ALT (12-78) U/L Alkaline Phosphatase (45-117) U/L Troponin I (0-0.045) ng/ml Total Protein (6.4-8.2) gm/dl Albumin (3.4-5.0) gm/dl Globulin (2.5-4.0) gm/dl Albumin/Globulin Ratio (0.9-2) Lipase (73-393) U/L Urine Color Urine Appearance (Clear) Urine pH (4.5-7.5) Ur Specific [place] (1.000-1.030) Urine Protein (Negative) Urine Glucose (UA) (Negative) Urine Ketones (Negative) Urine Blood (Negative) Urine Nitrite (Negative) Urine Bilirubin (Negative) Urine Urobilinogen (Negative) Ur Leukocyte Esterase (Negative) Urine WBC (Auto) (0-5) /hpf Urine RBC (Auto) (0-4) /hpf U Hyaline Cast (Auto) (0-5) /lpf U Epithel Cells (Auto) (0-5) /lpf Urine Bacteria (Auto) (Negative) COVID-19 Eval Order Covid19 IDNow [facility] SARS-CoV-2, RNA, NAAT NEGATIVE (NEGATIVE) 07/25/20 07/25/20 07/25/20 Range/Units 07:20 04:27 04:27 WBC 17.51 H (4.8-10.8) K/uL RBC 4.53 (4.2-5.4) M/uL Hgb 13.7 (12.0-16.0) g/dL Hct 40.1 (37-47) % MCV 88.5 (80-100) fL MCH 30.2 (25-34) pg MCHC 34.2 (32-36) g/dL RDW Std Deviation 44.5 (36.4-46.3) fL RDW Coeff of Chauncey 13.6 (11.5-14.5) % Plt Count 331 (130-400) K/uL MPV 9.5 (7.4-10.4) fL Immature Gran % (Auto) 0.2 % Neut % (Auto) 89.2 % Lymph % (Auto) 7.0 % [place] % (Auto) 3.4 % Eos % (Auto) 0.1 % Baso % (Auto) 0.1 % Neut # (Auto) 15.61 H (1.4-6.5) K/uL Lymph # (Auto) 1.23 (1.2-3.4) K/uL [place] # (Auto) 0.60 H (0.11-0.59) K/uL Eos # (Auto) 0.01 (0-0.5) K/uL Baso # (Auto) 0.02 (0-0.2) K/uL Immature Gran # (Auto) 0.04 H (0.00-0.02) K/uL Sodium 133 L (136-145) mmol/L Potassium (3.5-5.1) mmol/L Chloride 98 (98-107) mmol/L Carbon Dioxide 28 (21-32) mmol/L Anion Gap 7.0 (3-11) BUN 13 (7-18) mg/dl Creatinine 0.48 L (0.6-1.2) mg/dl Est Cr Clr Drug Dosing 92.2 ml/min Est GFR ( Amer) 107.4 Est GFR (Non-Af Amer) 92.6 BUN/Creatinine Ratio 27.9 H (10-20) Glucose 132 H (70-99) mg/dl Calcium 9.1 (8.5-10.1) mg/dl Phosphorus (2.5-4.9) mg/dl Magnesium (1.8-2.4) mg/dl Total Bilirubin 0.6 (0.2-1) mg/dl AST (15-37) U/L ALT 21 (12-78) U/L Alkaline Phosphatase 78 (45-117) U/L Troponin I < 0.015 (0-0.045) ng/ml Total Protein 7.7 (6.4-8.2) gm/dl Albumin 3.7 (3.4-5.0) gm/dl Globulin 4.0 (2.5-4.0) gm/dl Albumin/Globulin Ratio 0.9 (0.9-2) Lipase 84 (73-393) U/L Urine Color Yellow Urine Appearance Clear (Clear) Urine pH 7.5 (4.5-7.5) Ur Specific [place] > 1.045 H (1.000-1.030) Urine Protein 2+ H (Negative) Urine Glucose (UA) Negative (Negative) Urine Ketones 1+ H (Negative) Urine Blood Trace H (Negative) Urine Nitrite Negative (Negative) Urine Bilirubin Negative (Negative) Urine Urobilinogen Negative (Negative) Ur Leukocyte Esterase Negative (Negative) Urine WBC (Auto) 1-5 (0-5) /hpf Urine RBC (Auto) 5-10 H (0-4) /hpf U Hyaline Cast (Auto) 1-5 (0-5) /lpf U Epithel Cells (Auto) 20-30 H (0-5) /lpf Urine Bacteria (Auto) Negative (Negative) COVID-19 Eval Order SARS-CoV-2, RNA, NAAT (NEGATIVE) Diagnostic Findings CT abd pelvis IV con only CLINICAL HISTORY: Diffuse abdominal pain COMPARISON STUDY: 07/25/2020 TECHNIQUE: Patient was scanned in a dynamic helical fashion during intravenous administration of 93 cc of Optiray 320 A dose lowering technique was utilized adhering to the principles of ALARA. CT DOSE: 247.93 mGy.cm FINDINGS: Lower chest: There is a 3 mm right lower lobe pulmonary nodule. There is bibasilar atelectasis/consolidation. The heart is enlarged. Liver: The contrast-enhanced liver is normal in size, contour, and attenuation. There is no intrahepatic biliary ductal dilatation. The hepatic veins and portal veins are patent. Gallbladder: Lithiasis Spleen: Normal in size and attenuation. Pancreas: Unremarkable. Adrenal glands: Unremarkable. Kidneys: There is symmetric renal cortical enhancement. The kidneys are normal in size without hydronephrosis. Bowel: There are dilated fluid-filled small bowel loops present. The distal small bowel is of normal caliber. There is a large left-sided ventral hernia containing a portion of stomach, small bowel and colon. The portion of stomach within the hernia sac is tethered and dilated. There is also a bowel containing midline ventral hernia. There is a third right-sided infraumbilical bowel containing hernia. There is a transition zone at the level of this hernia. Peritoneum: There is no intraperitoneal free air or abdominal ascites. Vasculature: There is no evidence of abdominal aortic aneurysm. There are aortoiliac atheromatous changes Adenopathy: None. Pelvic viscera: No abnormal pelvic masses are visualized. The uterus is either surgically absent or atrophic. Skeletal structures: No destructive osseous lesions are seen. IMPRESSION: 1. Persistent small bowel obstructive pattern 2. Multiple abdominal wall hernias 3. The site of obstruction is felt to be located within a right paramedian ventral hernia.
[2020-07-25] MEDS: FLUTICASONE/VILANTEROL 200/25MCG 14 PUFFS/INHALER INH SCH (12:32)
[2020-07-25] MEDS: METOPROLOL TARTRATE 1 MG/ML VIAL IV SCH ×2 (12:33→17:02)
[2020-07-25] MEDS: ENOXAPARIN INJ 30 MG/0.3 ML SYR SQ SCH (12:34)
[2020-07-25] MEDS: MoRPHine SULFATE 2 MG/ML CARP IV PRN ×4 (13:56→22:56)
--- NOTE | 2020-07-25 20:34 | History & Physical Bridge Note ---
Date of Service July 25, 2020 History & Physical Bridge Note Patient seen and examined on 07/25/2020. She is stable from this morning's admission. She has a RLQ hernia that I could not reduce today. She was seen by surgery who recommended care the patient does not want and then signed off. I did speak with her about her desires because if the hernia becomes incarcerated. She reports to me that she should want to be "comfortable" if that was the case, even if competitive intelligence analyst to her passing. - Given her obstruction appears to be originating at the hernia site, will discuss with o/n provider at attempt to reduce it. It's unclear to me if surgery attempted this or not. - Will continue pain medication, nausea control. She declines an NG tube at this time.
[2020-07-26] MEDS: LACTATED RINGER'S 1,000 ML IV SCH (00:47)
[2020-07-26] MEDS: MoRPHine SULFATE 2 MG/ML CARP IV PRN ×9 (02:03→23:29)
--- NOTE | 2020-07-26 05:51 | Electrocardiogram Report ---
Test Reason : Blood Pressure : / mmHG Vent. Rate : 087 BPM Atrial Rate : 087 BPM P-R Int : 146 ms QRS Dur : 094 ms QT Int : 368 ms P-R-T Axes : 056 031 245 degrees QTc Int : 442 ms Sinus rhythm with Premature atrial complexes Left ventricular hypertrophy with repolarization abnormality Abnormal ECG When compared with ECG of 01-AUG-2019 03:50, T wave inversion now evident in Inferolateral leads QT has shortened Confirmed by Prudencio Frederick ([id number]) on 07/26/2020 5:51:24 AM Referred By: REFERRED SELF Confirmed By:Prudencio Frederick
[2020-07-26 07:11] LABS: Hematocrit (blood only) 35.1 % (37-47); Hemoglobin 11.6 g/dL (12.0-16.0); Mean Corpuscular Hemoglobin 30.1 pg (25-34); Mean Corpuscular Volume 91.2 fL (80-100); Mean Platelet Volume 9.4 fL (7.4-10.4); Platelet Count 293 K/uL (130-400); RDW Coefficient of Variation 14.1 % (11.5-14.5); RDW Standard Deviation 46.8 fL (36.4-46.3); Red Blood Count 3.85 M/uL (4.2-5.4); White Blood Count 11.28 K/uL (4.8-10.8)
[2020-07-26 07:48] LABS: BUN Creatinine Ratio 38.3 (10-20); Calcium 9.2 mg/dl (8.5-10.1); Creatinine Clr Calc Pharmacy 62.3 ml/min; Est GFR (African American) 101.5; Est GFR (Non-African American) 87.6; Magnesium 2.1 mg/dl (1.8-2.4); Potassium 3.7 mmol/L (3.5-5.1)
[2020-07-26] MEDS: predniSONE 1 MG TAB PO SCH (08:13)
[2020-07-26] MEDS: FLUTICASONE/VILANTEROL 200/25MCG 14 PUFFS/INHALER INH SCH (08:13)
[2020-07-26] MEDS: FAMOTIDINE 20 MG in SYRINGE 3 ML IV SCH ×2 (09:07→21:01)
[2020-07-26] MEDS: methylPREDNISolone 30 MG in SYRINGE 0 ML IV SCH (09:08)
[2020-07-26] MEDS: ENOXAPARIN INJ 30 MG/0.3 ML SYR SQ SCH (11:27)
--- NOTE | 2020-07-26 17:41 | XRay Report ---
XR abdomen 2V w PA chest CLINICAL HISTORY: Small bowel obstruction. Hernias. COMPARISON STUDY: Chest x-ray dated 07/16/2018 FINDINGS: The heart is enlarged. There is radiographic evidence of mild pulmonary vascular congestion . A small subpulmonic right pleural effusion is suspected. There are right basilar opacities likely a telectatic. There is a persistent opacity within the right medial lung apex, likely representing a de la rosa mmation with great vessels. Erect and supine views the abdomen reveal a suspected left lateral abdomi nal wall hernia. There are mildly dilated small bowel loops. IMPRESSION: 1. No evidence of free air 2. Suspected left lateral abdominal wall hernia 3. Mild small bowel dilatation 4. Cardiomegaly and mild pulmonary vascular congestion. ACT 112: Negative or not required by law. Electronically signed by: Jerry Hudson M.D. 07/26/2020 5:40 PM
--- NOTE | 2020-07-26 20:27 | Hospitalist Progress Note ---
Date of Service July 26, 2020 Assessment & Plan (1) Ventral hernia with bowel obstruction: 2 hernias on exam, one on left is quite large and contains portion of stomach, colon, etc based on imaging. right hernia is smaller but recent CT showed that this is where the obstruction is coming from as the transition point is in this hernia sac. obtained x-rays today - mild small bowel dilatation but certainly no worse than previous. no vomiting but no flatus/stools yet. attempted to place NG tube today - nursing with several attempts without success. patient previously with no desire for surgery - now willing to consider such if necessary - she knows she would be higher risk for surgery given her complex abdominal wall and intra-abdominal anatomy. corresponded with Dr Monterroso from gen surg as well as surgical PA - Dr Monterroso to see in am to determine if tertiary care referral should occur this weekend. in meantime continue conservative Rx. labs in am. (2) Partial small bowel obstruction: see above in "ventral hernia..." (3) Seropositive rheumatoid arthritis: Steroid dependent. Med rec lists 3mg prednisone daily. Patient states she was changed to 7mg daily recently. [id number] HOLD the prednisone. Give "stress dose" steroids with solumedrol 30mg daily continue plaquenil (4) HTN (hypertension): Holding Lisinopril, HCTZ and PO metoprolol due to NPO status. Metoprolol 5mg IV q 6 hours. (5) Sjogrens syndrome: noted (6) History of colostomy reversal: 2014 - initial colonic surgery for diverticulitis w/ perforation/abscess. then reanastomosis several months later. (7) Asthma: suspect this is the cause of her chest symptoms. heart cath several years ago at [facility] with normal coronaries continue inhalers (8) Rheumatoid lung: noted (9) DVT prophylaxis: lovenox daily fluids stopped today - has JVD on exam, and cxr with pulmonary vascular congestion Admission and Anticipated Discharge Date Admission Date: July 25, 2020 Subjective patient denies flatus or bowel movement but stated "it's doing a lot of rumbling" c/o significant bloating/distension over both hernias denies pain no vomiting she had been adamantly opposed to surgery for her hernias however, after a discussion today with Dr Herring her PCP, she is now more open to the idea of surgery if deemed necessary she also had refused NG tube placement yesterday but is now agreeable to such during the visit she had a brief episode of fleeting dyspnea but no chest pain denied heartburn Review of Systems Constitutional: + fatigue Respiratory: + dyspnea; no cough Cardiovascular: no chest pain Gastrointestinal: + bloating; no vomiting Physical Exam Constitutional: + altered mental status (Mild confusion ); no acute distress craniofacial deformity of right face and right eye - Muro's palsy? other? ENMT: external ear and nose normal, oropharynx normal Respiratory: no respiratory distress Auscultation: + rales; no wheezes Cardiovascular: Rate/Rhythm: regular rate and regular rhythm Heart Sounds: normal S1 and normal S2 Vessels: + JVD, posterior tibial pulses present and dorsalis pedis pulses present Extremities: no edema Gastrointestinal (Abdomen): Inspection/Auscultation: + abdomen distended Percussion/Palpation: + abdomen rigid (Left hernia - ?scar tissue? Stool? Other? ) and + hernia (X 2 -- left hernia very large, right hernia smaller; both not reducible) Musculoskeletal: RA deformities of hands/fingers Psychiatric: Orientation: alert, oriented to person and oriented to place; + not oriented to time Results & Data Results & Data ([facility]) Vital Signs (Past 12 Hours) Vital Signs Temp Pulse Pulse Pulse Resp BP Pulse Ox 07/26/20 19:11 36.9 C 70 16 174/75 H 97 07/26/20 18:38 65 07/26/20 15:31 37.0 C 68 18 157/70 H 93 07/26/20 11:00 37.0 C 85 18 175/72 H 91 07/26/20 10:55 80 Laboratory Results Laboratory Results - last 24 hr 07/25/20 07/26/20 07/26/20 21:01 06:59 06:59 WBC 11.28 H RBC 3.85 L Hgb 11.6 L Hct 35.1 L MCV 91.2 MCH 30.1 MCHC 33.0 RDW Std Deviation 46.8 H RDW Coeff of Chauncey 14.1 Plt Count 293 MPV 9.4 Sodium 136 Potassium 3.7 Chloride 102 Carbon Dioxide 26 Anion Gap 8.0 BUN 22 H D Creatinine 0.57 L Est Cr Clr Drug Dosing 62.3 Est GFR ( Amer) 101.5 Est GFR (Non-Af Amer) 87.6 BUN/Creatinine Ratio 38.3 H Glucose 57 L POC Glucose Lactate 1.3 Calcium 9.2 Magnesium 2.1 07/26/20 17:50 WBC RBC Hgb Hct MCV MCH MCHC RDW Std Deviation RDW Coeff of Chauncey Plt Count MPV Sodium Potassium Chloride Carbon Dioxide Anion Gap BUN Creatinine Est Cr Clr Drug Dosing Est GFR ( Amer) Est GFR (Non-Af Amer) BUN/Creatinine Ratio Glucose POC Glucose 79 Lactate Calcium Magnesium PG Care Time/CCT Total # of Minutes Spent Total Time Spent with Patient: Total time spent is greater than 50% in coordination of care (as documented) at patient's floor/unit and/or counseling patient: Coding Level of Care Code 21564 Subseq Hosp Care Lvl 3 Diagnoses Ventral hernia with bowel obstruction K43.6 Partial small bowel obstruction K56.600 Seropositive rheumatoid arthritis M05.9 HTN (hypertension) I10 Hypertension type: essential hypertension Sjogrens syndrome M35.00 History of colostomy reversal Z98.890 Asthma J45.909 Rheumatoid lung M05.10 DVT prophylaxis Z29.9 (1) HTN (hypertension) Hypertension type: essential hypertension Qualified Code(s): I10 - Essential (primary) hypertension
[2020-07-26] MEDS ORDERED: METOPROLOL TARTRATE 1 MG/ML VIAL IV STA (23:47)
[2020-07-26] MEDS: ONDANSETRON INJ 2 MG/ML 2 ML VIAL IV PRN (23:50)
[2020-07-27] MEDS: MoRPHine SULFATE 2 MG/ML CARP IV PRN ×3 (03:55→09:13)
[2020-07-27 06:11] LABS: BUN Creatinine Ratio 38.3 (10-20); Calcium 9.1 mg/dl (8.5-10.1); Creatinine Clr Calc Pharmacy 61.9 ml/min; Est GFR (African American) 101.5; Est GFR (Non-African American) 87.6
[2020-07-27] MEDS: METOPROLOL TARTRATE 1 MG/ML VIAL IV SCH ×2 (06:21→11:28)
[2020-07-27] MEDS ORDERED: DEXTROSE 50% 50 ML SYRINGE IV ONE (07:34)
[2020-07-27] MEDS ORDERED: D5NSS + 20MEQ KCL 20 MEQ/1,000 ML BAG IV SCH (08:00)
--- NOTE | 2020-07-27 08:28 | Surgery Progress Note ---
Date of Service July 27, 2020 Assessment & Plan (1) Ventral hernia with bowel obstruction: -Was asked to reevaluate patient at request of medical team -Patient was previously seen by Dr. Carbone and recommended for transfer to tertiary care -I agree with Dr. Carbone's initial assessment as she has multiple co-morbidities as well as multiple complex abdominal wall hernias with partial obstruction that has not resolved after 48 hours of non-operative management -Discussed this plan with hospitalist team Admission and Anticipated Discharge Date Admission Date: July 25, 2020 Subjective Pt seen and examined. Afebrile. Minimal nausea. No emesis. No flatus or BM. Review of Systems Constitutional: no fever and no chills Gastrointestinal: + abdominal pain and + nausea; no vomiting Physical Exam Constitutional: WD/WN, vitals as above Respiratory: normal respiratory effort, lungs clear to auscultation Cardiovascular: RRR, no murmur, no edema Gastrointestinal (Abdomen): Inspection/Auscultation: abdomen normal to inspection and + abdomen distended Percussion/Palpation: + abdomen tender (Right abdomen at hernia site) and + hernia She has loss of domain to her abdominal wall with at least two hernias containing bowel Results & Data ([facility]) Vital Signs (Past 12 Hours) Vital Signs Temp Pulse Pulse Pulse Resp BP BP 07/27/20 07:04 37.0 C 60 16 188/71 H 07/27/20 06:21 80 184/75 H 07/27/20 06:17 80 07/27/20 02:44 36.8 C 68 16 179/73 H 07/27/20 00:56 71 07/26/20 22:48 36.8 C 72 18 201/70 H BP Pulse Ox 07/27/20 07:04 92 07/27/20 06:21 07/27/20 06:17 184/75 H 07/27/20 02:44 94 07/27/20 00:56 07/26/20 22:48 204/77 H 98 PG Care Time/CCT Total # of Minutes Spent Total Time Spent with Patient: Total time spent is greater than 50% in coordination of care (as documented) at patient's floor/unit and/or counseling patient: Coding Level of Care Code 67962 Subseq Hosp Care Lvl 1 Diagnoses Ventral hernia with bowel obstruction K43.6
[2020-07-27] MEDS: methylPREDNISolone 30 MG in SYRINGE 0 ML IV SCH (09:12)
[2020-07-27] MEDS: FLUTICASONE/VILANTEROL 200/25MCG 14 PUFFS/INHALER INH SCH (09:12)
[2020-07-27] MEDS: FAMOTIDINE 20 MG in SYRINGE 3 ML IV SCH (09:13)
[2020-07-27] MEDS ORDERED: HYDROmorphone INJ 0.5 MG/0.5 ML SYR IV PRN (10:46)
[2020-07-27] MEDS ORDERED: FUROSEMIDE 20 MG in SYRINGE 0 ML IV ONE (11:00)
[2020-07-27] MEDS: ENOXAPARIN INJ 30 MG/0.3 ML SYR SQ SCH (11:28)
[2020-07-27] MEDS ORDERED: hydrALAZINE HCL 20 MG/ML VIAL IV ONE (12:54)
[2020-07-27] MEDS ORDERED: XOPENEX/ATROVENT 1.25mg/0.5MG NEB COMBO NEB ONE (13:31)
[2020-07-27] MEDS ORDERED: IPRATROPIUM BROMIDE NEB SOLN 0.02% 2.5 ML VIAL INH ONE (13:45)
[2020-07-27] MEDS ORDERED: LEVALBUTEROL 1.25MG/0.5ML NEB INH ONE (13:45)
--- NOTE | 2020-07-27 18:31 | Discharge Summary ---
Date of Service date of admission - July 25, 2020 date of discharge - July 27, 2020 Admission HPI Per Admitting Provider Ranjit Zepeda is a pleasant 79yo female with history of ventral wall hernias and prior history of SBO presenting with the same. Patient received her first Covid-19 shot yesterday after which she felt mildly "flush", febrile with myalgias. She developed severe nausea yesterday around 19:00 with several episodes of non-bloody vomiting. She then developed severe abdominal pain in right abdomen. She is not passing flatus. Last BM was yesterday AM. Patient reports feeling slightly short of breath when the pain was intense, otherwise no complaints. She denies chest pain/palpitations. Nausea is improved. Pain is fairly well controlled at present. ER Course: Zofran 4mg IV, Dilaudid0.5mg IV, NSS 500mL Principal Diagnosis SBO 2nd to ventral hernia Discharge Exam Constitutional no acute distress and no altered mental status very anxious, tearful ENMT right facial droop/craniofacial abnormality on right Respiratory no respiratory distress Auscultation: + rales (bases) and + wheezes (b/l end-exp) Cardiovascular Rate/Rhythm: regular rate and regular rhythm Heart Sounds: normal S1, normal S2 and + murmur (1/6 systolic LLSB ) Vessels: + JVD, posterior tibial pulses present and dorsalis pedis pulses present Extremities: no edema Gastrointestinal (Abdomen) BS+; distended (gross, as well as focal over her 2 hernias); large hernia left lower quadrant with palpable loops of bowel - firm to palpation; right lower quadrant hernia - smaller than the hernia on left; RLQ hernia firm to palpation, mildly tender to palpation, palpable loops of bowel; no HSM. Musculoskeletal chronic rheumatoid changes of fingers & hands Psychiatric Orientation: alert, oriented to person and oriented to place Affect: + tearful affect Discharge Data Allergies Allergy/AdvReac Type Severity Reaction Status Date / Time ciprofloxacin Allergy Severe PASSED Verified 07/25/20 05:21 OUT, SEVERE RXN PER PATIENT nut - unspecified Allergy Intermediate HIVES Verified 07/25/20 05:21 banana Allergy Mild RASH Verified 07/25/20 05:21 latex Allergy Mild RASH Verified 07/25/20 05:21 moxifloxacin Allergy Mild PAIN IN Verified 07/25/20 05:21 HEEL nickel Allergy Mild RASH ON Verified 07/25/20 05:21 EARS WITH EARRINGS WITH NICKEL Sulfa (Sulfonamide Allergy Mild Rash Verified 07/25/20 05:21 Antibiotics) fluconazole AdvReac Intermediate TACHYCARDIA, Verified 07/25/20 05:21 HAIR LOSS adhesive AdvReac Mild CONTACT Verified 07/25/20 05:21 DERMATITIS codeine AdvReac Mild DIZZINESS Verified 07/25/20 05:21 Consultations General Surgery Ordered Studies 07/25/20 04:37 CT abd pelvis IV con only Urgent FINDINGS: Lower chest: There is a 3 mm right lower lobe pulmonary nodule. There is bibasilar atelectasis/consolidation. The heart is enlarged. Liver: The contrast-enhanced liver is normal in size, contour, and attenuation. There is no intrahepatic biliary ductal dilatation. The hepatic veins and portal veins are patent. Gallbladder: Lithiasis Spleen: Normal in size and attenuation. Pancreas: Unremarkable. Adrenal glands: Unremarkable. Kidneys: There is symmetric renal cortical enhancement. The kidneys are normal in size without hydronephrosis. Bowel: There are dilated fluid-filled small bowel loops present. The distal small bowel is of normal caliber. There is a large left-sided ventral hernia containing a portion of stomach, small bowel and colon. The portion of stomach within the hernia sac is tethered and dilated. There is also a bowel containing midline ventral hernia. There is a third right-sided infraumbilical bowel containing hernia. There is a transition zone at the level of this hernia. Peritoneum: There is no intraperitoneal free air or abdominal ascites. Vasculature: There is no evidence of abdominal aortic aneurysm. There are aortoiliac atheromatous changes Adenopathy: None. Pelvic viscera: No abnormal pelvic masses are visualized. The uterus is either surgically absent or atrophic. Skeletal structures: No destructive osseous lesions are seen. IMPRESSION: 1. Persistent small bowel obstructive pattern 2. Multiple abdominal wall hernias 3. The site of obstruction is felt to be located within a right paramedian ventral hernia. Hospital Course (1) Ventral hernia with bowel obstruction: Patient presented with small bowel obstruction 2nd to a right-sided paramedian ventral hernia. On exam she has 2 palpable hernias. The one on left is quite large and contains portion of stomach, colon, etc based on imaging. Right-sided hernia is smaller. Admission CT showed that the transition point of her SBO was in this right-sided hernia sac. Patient was seen by general surgery. Initially the patient declined NG tube placement and also told the team she would not want surgery if things worsened. She reported she simply wanted very conservative measures. On hospital day #2 the patient reversed her decision - she was open to NG tube placement and surgery if deemed necessary. NG tube placement was subsequently attempted on hospital day #2 but without success. The patient unfortunately did not show any clinical improvement over her short stay. General surgery continued to voice that she needed transfer to a tertiary care center given the complexity of her abdominal wall anatomy and loss of abdominal domain. x-rays showed no improvement in her bowel gas pattern, and she had no flatus/stool. Finally, on hospital day #3, the patient again voiced she would be open to abdominal surgery if necessary for her SBO. Therefore, [facility] was contacted, and Dr Ling Blanchard from surgery accepted Ms Zepeda in transfer for ongoing care. The patient remained hemodynamically stable during the hospitalization. (2) Seropositive rheumatoid arthritis: Steroid dependent. Admission medication list suggested she had been taking 3mg prednisone daily. However, patient stated she was changed to 7mg daily recently. [id number] her oral prednisone was held due to NPO status, and she was changed to IV solumedrol. She was given 30mg of solumedrol daily for stress-dose purposes as well as to maintain euglycemia. Patient also takes plaquenil at home. (3) HTN (hypertension): Held Lisinopril, HCTZ and metoprolol due to NPO status. Metoprolol 5mg IV q 6 hours was used for BP control along with PRN hydralazine. (4) Sjogrens syndrome: (5) History of colostomy reversal: October, - initial colonic surgery for diverticulitis w/ perforation/abscess (left-sided hemicolectomy, colostomy creation, and Stanton's pouch). January, - underwent reanastomosis and takedown of her colostomy. Subsequently developed a large ventral hernia over the left lower quadrant sometime later on. (6) Asthma: Continue usual inhalers. 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 She may have had pulmonary edema from IV fluid administration for which she received lasix. IVF were discontinued due to the concern of above. (8) DVT prophylaxis: lovenox daily while hospitalized Total Time Total Time Spent Total Time Spent (In Minutes): 60 Total Time Includes: Examination of the Patient, Discharge Planning, Medication Reconciliation and Communication With Other Providers Discharge Plan Discharge Items Patient Disposition: Transfer Acute Care Hospital Reason For Visit: SBO Discharge Diagnosis: SBO 2nd to ventral hernia Activity: As commented below Activity Comment: bedrest/out of bed to chair as tolerated Non-emergency contact: Primary Care Provider Call non-emergency contact if: you have any medication questions Follow-up/Referrals: Jamin Herring MD [Primary Care Provider] - Diet: Nothing by Mouth Addtl Attending Provider Instructions: Mrs Zepeda was treated conservatively for small bowel obstruction due to ventral hernia. Unfortunately SBO did not resolve with conservative measures/time. [facility] General surgery recommended transfer to a tertiary care center due to probable need for surgery. She has a complex abdominal surgery history and has [address] Ling Blanchard graciously accepted Ms Zepeda in transfer for ongoing care at [facility]. Pending Studies at Discharge: No Stand-Alone Forms: My [facility] Skilled Items Patient informed of condition?: Yes DNR: Yes Discharge Level of Care: Other Communicable Disease: No Discharge Prognosis: Other Lines: Peripheral IV Urinary Catheter: No Medications and DC Order Prescriptions: New metoprolol tartrate [Lopressor] 5 mg/5 mL Solution 5 mg IV Q6 Qty: 1 RF: 0 hydromorphone 0.5 mg/0.5 mL Syringe 0.25 mg IV Q2H PRN (Reason: pain) Qty: 1 RF: 0 Continued Symbicort 160-4.5 mcg/actuation HFA aerosol inhaler 2 puff Inhalation BID Qty: 3 RF: 3 prednisone 1 mg tablet 3 mg PO DAILY Qty: 90 RF: 6 albuterol sulfate [Ventolin HFA] 90 mcg/actuation HFA aerosol inhaler 2 puffs INH Q6H PRN (Reason: Shortness Of Breath) RF: 0 ipratropium-albuterol 0.5 mg-3 mg(2.5 mg base)/3 mL solution for nebulization 3 ml NEB QIDR PRN (Reason: Wheezing) RF: 0 hydroxychloroquine [Plaquenil] 200 mg Tablet 200 mg PO QAM RF: 0 Discontinued docusate sodium [Colace] 100 mg Capsule 100 mg PO DAILY RF: 0 multivitamin Tablet 1 tab PO QPM RF: 0 metoprolol succinate 25 mg tablet extended release 24 hr 12.5 mg PO BID Qty: 90 RF: 3 lisinopril 10 mg tablet 10 mg PO BID Qty: 180 RF: 3 magnesium oxide 400 mg Capsule 400 mg PO QPM RF: 0 cholecalciferol (vitamin D3) [Vitamin D3] 25 mcg (1,000 unit) tablet 5,000 units PO QAM RF: 0 hydrochlorothiazide 25 mg tablet 25 mg PO Q OTHER DAY RF: 0 Discharge Orders: Discharge Order (Routine); Ordered 07/27/20 Ordered By: Jamin Maurer Admission Data Admit Date/Time: 07/25/20 06:44 Attending Provider: Jamin Maurer Admit Provider: Rae Lares Primary Care Provider: Jamin Herring Other Providers: Wagner Louise ; Jeremias Li ; Roland Ricketts ; Eloy Conklin Jr ; Germain Ag ; Joe Wade ; Renetta Dias ; Domenico Monterroso ; Trey Decker ; Rip Hall Other Interventions: Discharge Summary Assessment (RN) Last Done: 07/27/20 14:15 Coding Level of Care Code D/C Day Management >30 mins Diagnoses Ventral hernia with bowel obstruction K43.6 Seropositive rheumatoid arthritis M05.9 HTN (hypertension) I10 Hypertension type: essential hypertension Sjogrens syndrome M35.00 History of colostomy reversal Z98.890 Asthma J45.909 Rheumatoid lung M05.10 DVT prophylaxis Z29.9 Comment I would like to thank Dr Ling Blanchard for accepting Ms Zepeda in transfer to [facility].
== END 2020-07-27 16:18 | disposition short-term general hospital (02) | DRG 394 ==
LOC: ED 04:07 → SUATTDRO 06:44 → 2N 06:44

== ENCOUNTER 2020-11-14 08:27 | Inpatient (IN) ==
--- NOTE | 2020-11-14 08:55 | Emergency Department Note ---
Impression & Plan Chest pain, Acute UTI, Wide-complex tachycardia ED Provider Note Provider: Cristiano Castro MD DATE OF SERVICE: 11/14/2020 CHIEF COMPLAINT: Chest discomfort 80-year-old female past medical history including hypertension HISTORY OF PRESENT ILLNESS: Patient is a, CVA, GERD, recent hospitalization for pubic rami fracture, and CHF with an EF approximately 40% presenting here today via ambulance from her nursing facility with report of onset of some chest pressure 5/10 around 515am this morning. Patient reports that she woke up and pressure nonradiating anywhere else. States by now pressure has basically resolved. Denies associated significant shortness of breath. Denies trauma in the last 24 hours. Denies significant abdominal symptoms of pain, nausea, or vomiting. States her legs are little bit swollen and she just feels a little bit tender all over. States she has received the Covid vaccine. States she is not had any fevers. Denies having pain like this before. Patient had a cardiac catheterization in 2018 without notable findings. REVIEW OF SYSTEMS: A total of 10 review of systems was obtained and negative except as stated above in the HPI. PAST MEDICAL HISTORY: As noted above MEDICATIONS: Reviewed medication list from the facility SOCIAL HISTORY: Resides at [facility] PHYSICAL EXAM: GENERAL: alert and oriented in no acute distress on stretcher Head: normocephalic and atraumatic EYES: No injection, discharge or icterus with NECK: Trachea midline. Supple. ENT: Mucous membranes pink and moist. LUNGS: Airway patent. No retractions. Breath sounds clear with good air entry bilaterally. HEART: Regular rate and rhythm. No chest wall tenderness ABDOMEN: Soft and non-tender, without guarding or rebound. SKIN: Acyanotic, warm, dry, without rashes EXTREMITIES: Without swelling, tenderness or deformity NEUROLOGICAL: No aphasia. No slurred speech. Intact sensation all extremities. EK bpm sinus rhythm with sinus arrhythmia. No PVC or PAC. No acute ST segment elevation with LVH changes. Seems similar to October 15 of this year with s ome increased sinus arrhythmia. EK bpm sinus tachycardia with occasional PVC. No acute ST segment elevation noted in comparison to previous now with somewhat frequent PVCs. CONTINUOUS CARDIAC MONITORING: was ordered and showed a heart rate of 90s-100s bpm in sinus rhythm/sinus tachycardia with sinus arrhythmia however later was noted to have multiple PVCs and at least one run of 12 beats of V. tach and later in sustained wide-complex tachycardia question V. tach Patient's laboratory studies and imaging reviewed. Differential includes Cardiac ischemia, aortic dissection, pulmonary embolism, pneumothorax, pneumonia, pericarditis, myocarditis, esophageal rupture, GERD, cholecystitis, pancreatitis, musculoskeletal, as well as other pathologies. IMPRESSION/MEDICAL DECISION MAKING: Patient presents approximately 3 hours after onset of some chest pressure that resolved at the time of my evaluation here at the hospital. EKG without STEMI. Troponin initial is negative here. Denies any trauma. Patient does not appear in any distress on exam. Blood work shows chronic leukocytosis 16 today decreased from previous. Question if this is from her chronic steroids. Slightly improved anemia. Chronic hyponatremia noted. No evidence of acute kidney injury or signs of acute hepatitis or pancreatitis based on labs. Troponin again initially is negative. Discussed with patient findings. Lower suspicion at this time she is having acute aortic dissection and does not appear to have significant findings concerning for DVT. Do not feel we need to pursue PE work-up and a discussion with the patient she was in agreement. Discussed with the patient obtaining a second troponin and EKG to exclude any changes. Urine sample obtained is somewhat concerning for infection with leukoesterase, white blood cells, and nitrates; the patient does not appear septic we will give a dose of Rocephin here for coverage as she is immunosuppressed on Plaquenil and prednisone chronically. Patient while here awaiting repeat troponin had return of some chest pressure. Patient's had multiple runs of PVCs and at least one episode of approximately 10-12 beat run of what appears to be PVCs. Patient second EKG without significant acute ischemic changes but evidence of PVC. Second troponin was sent and this was negative as well. Chest pressure is minimal upon my reevaluation. Patient denies lightheadedness. Discussed with patient options at this time especially with the bursts of PVCs here and her history of CHF last at 40% EF she wished to be conservative in for further monitoring here in the hospital. The hospitalist was contacted. Patient received aspirin prior to arrival by EMS. Did give her some magnesium IV to try to help prevent significant arrhythmia. Just prior to this medication beginning the patient went into a wide-complex tachycardia with initial concern for possible V. tach. Given 150 mg bolus of amiodarone. Further review of records from July from [place] scanned in the system indicates she had episodes of NSVT there. Patient endorsed with the change in rhythm here significant chest pressure and blood pressure was around 100 systolic. Patient declined any acute intervention such as electrical cardioversion and again reaffirmed that she is DNR/DNI. Patient's blood pressure did slowly improve as she was was agreeable for medications and did receive some magnesium and amiodarone. EKG change at the time questions possible A. fib versus other wide-complex tachycardia. Reached out to Dr. Frederick of cardiology for his impression the patient's symptoms did improve some again with some rate control with amiodarone and some metoprolol. Question is represents sustained V. tach. Patient not unstable. Patient does state that she missed her morning medications including metoprolol may be contributing. Patient later converted back to normal rhythm after metoprolol and amiodarone. Seen by cardiology in the emergency department. Hospitalist evaluated as well. DIAGNOSIS: Chest pain, wide-complex tachycardia, acute uti DISPOSITION: Evaluation by hospitalist. Critical Care I have personally spent 36 minutes of critical care time in the direct management of this patient. This includes bedside care, interpretation of diagnostic studies, and testing, discussion with consultants, patient, and family members, and other required patient management activities. These 36 minutes is in excess of all separately billable procedures. 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 Stroke like symptoms. History of intestinal obstruction HTN (hypertension) Hx of lower gastrointestinal bleeding 2019-RESOLVED Incisional hernia without obstruction or gangrene Intraoperative ureteral injury PT DENIES Long-term use of hydroxychloroquine Multiple pulmonary nodules DUE TO RA Osteoporosis Peptic ulcer disease Seropositive rheumatoid arthritis Sjogrens syndrome SOB (shortness of breath) on exertion Surgical History History of colonoscopy History of colostomy History of colostomy reversal ETT#7, Glidescope #3, Grade 1 View - attempt x 1, atraumatic History of esophagogastroduodenoscopy (EGD) History of facial surgery History of partial colectomy History of tonsillectomy and adenoidectomy History of total knee arthroplasty RIGHT Hx of right heart catheterization 2018 [facility] > NO STENTS Status post right foot surgery 2012 AT [place] Ventral hernia with bowel obstruction Family History Mother Asthma Heart disease Renal failure Brother Heart disease Father Pneumonia Other History of section Ventral hernia with bowel obstruction Social History Smoking Status: Former smoker Years Smoked: 2; Second Hand Exposure: No; Hx Alcohol Use: No Hx Substance Use: No Preferred Language: [place] Communication Ability: Effective Visual Impairment: No Limitations Steward/Stewardess Smoke Room Required: No Beliefs That Will Affect Care: Spiritual marital status: / Current Living Situation: Alone current occupational status: retired Feels Safe at Home: Yes Seatbelt Use: always Assistive Devices: Oxygen - Continuous Allergies Allergies Allergy/AdvReac Type Severity Reaction Status Date / Time ciprofloxacin Allergy Severe PASSED Verified 11/14/20 10:02 OUT, SEVERE RXN PER PATIENT nut - unspecified Allergy Intermediate HIVES Verified 11/14/20 10:02 banana Allergy Mild RASH Verified 11/14/20 10:02 latex Allergy Mild RASH Verified 11/14/20 10:02 moxifloxacin Allergy Mild PAIN IN Verified 11/14/20 10:02 HEEL nickel Allergy Mild RASH ON Verified 11/14/20 10:02 EARS WITH EARRINGS WITH NICKEL Sulfa (Sulfonamide Allergy Mild Rash Verified 11/14/20 10:02 Antibiotics) fluconazole AdvReac Intermediate TACHYCARDIA, Verified 11/14/20 10:02 HAIR LOSS adhesive AdvReac Mild CONTACT Verified 11/14/20 10:02 DERMATITIS codeine AdvReac Mild DIZZINESS Verified 11/14/20 10:02 hydrocodone AdvReac Dizziness Verified 11/14/20 10:02 Home Meds Home Medications Medication Instructions Recorded Confirmed hydroxychloroquine [Plaquenil] 200 mg PO QAM 06/21/18 11/14/20 cholecalciferol (vitamin D3) 125 5,000 unit PO QPM 08/20/20 11/14/20 mcg (5,000 unit) capsule pantoprazole 20 mg tablet,delayed 20 mg PO QAM 08/20/20 11/14/20 release prednisone 1 mg tablet 2 mg PO QAM tab 08/20/20 11/14/20 acetaminophen [Tylenol] 650 mg PO Q8H PRN MDD 3 GRAMS/24 09/13/20 11/14/20 HOURS calcium carbonate [Tums 500] 500 mg PO DAILY PRN 09/13/20 11/14/20 lisinopril 10 mg PO BID 09/13/20 11/14/20 metoprolol succinate 50 mg PO Q12H 09/13/20 11/14/20 multivitamin with minerals 1 tab PO QAM 09/13/20 11/14/20 omega-3 fatty acids-fish oil 1 cap PO QPM 09/13/20 11/14/20 [[place] 3 Fish Oil] prednisone 5 mg PO QAM 09/13/20 11/14/20 sennosides-docusate sodium 1 tab-cap PO BID 09/13/20 11/14/20 [Sennalax-S] Saccharomyces boulardii [Florastor] 250 mg PO QAM 10/15/20 11/14/20 amitriptyline 10 mg PO HS 10/15/20 11/14/20 budesonide-formoterol [Symbicort] 2 puff INHALATION BID17 10/15/20 11/14/20 carboxymethylcellulose sodium 1 drp OPB DAILY PRN 10/15/20 11/14/20 [Artificial Tears (cmc)] tramadol 50 mg PO Q8H PRN 10/15/20 11/14/20 docusate sodium 100 mg PO QAM PRN 11/14/20 11/14/20 Previous Rx's Medication Instructions Recorded hydrocodone 5 mg-acetaminophen 325 0.5 tab PO Q6H PRN #60 tab 11/11/20 mg tablet oxycodone 5 mg tablet 5 mg PO Q4H PRN #120 tab 11/14/20 Results & Data (ED) Vital Signs Vital Signs - 24 hr 11/14/20 08:33 11/14/20 08:34 11/14/20 08:50 Temperature 37.7 C H Temperature Source Oral Pulse Rate 98 H 98 H Pulse Rate from SpO2 Sensor 101 H Pulse Rhythm Regular Pulse Strength Normal Respiratory Rate 19 24 Respiratory Effort / Characteristics Non-Labored Spontaneous Respiratory Depth Normal Respiratory Pattern Regular Blood Pressure 174/105 H 174/105 H Blood Pressure Mean 128 128 Blood Pressure Position Sitting Pulse Oximetry 98 98 98 Oxygen Delivery Method Room Air Room Air Sepsis Recent Fever Within 48 Hours No Sepsis New/Unexplained Change in Mental Status No Sepsis Action Taken by Nursing No Action Required 11/14/20 09:00 11/14/20 09:30 11/14/20 10:00 Temperature Temperature Source Pulse Rate 91 H 90 99 H Pulse Rate from SpO2 Sensor 93 H 92 H 96 H Pulse Rhythm Pulse Strength Respiratory Rate 18 24 20 Respiratory Effort / Characteristics Respiratory Depth Respiratory Pattern Blood Pressure 163/95 H 148/71 H 154/87 H Blood Pressure Mean 117 96 109 Blood Pressure Position Pulse Oximetry 96 94 93 Oxygen Delivery Method Sepsis Recent Fever Within 48 Hours Sepsis New/Unexplained Change in Mental Status Sepsis Action Taken by Nursing 11/14/20 10:30 11/14/20 11:00 11/14/20 11:30 Temperature Temperature Source Pulse Rate 99 H 95 H 101 H Pulse Rate from SpO2 Sensor 95 H 94 H 99 H Pulse Rhythm Pulse Strength Respiratory Rate 22 24 18 Respiratory Effort / Characteristics Respiratory Depth Respiratory Pattern Blood Pressure 153/81 H 161/90 H 160/71 H Blood Pressure Mean 105 113 100 Blood Pressure Position Pulse Oximetry 93 95 96 Oxygen Delivery Method Sepsis Recent Fever Within 48 Hours Sepsis New/Unexplained Change in Mental Status Sepsis Action Taken by Nursing 11/14/20 12:00 11/14/20 12:30 11/14/20 13:00 Temperature Temperature Source Pulse Rate 88 102 H 119 H Pulse Rate from SpO2 Sensor 89 94 H 119 H Pulse Rhythm Pulse Strength Respiratory Rate 20 19 19 Respiratory Effort / Characteristics Respiratory Depth Respiratory Pattern Blood Pressure 163/81 H 161/98 H 103/74 Blood Pressure Mean 108 119 83 Blood Pressure Position Pulse Oximetry 98 94 96 Oxygen Delivery Method Sepsis Recent Fever Within 48 Hours Sepsis New/Unexplained Change in Mental Status Sepsis Action Taken by Nursing 11/14/20 13:17 11/14/20 13:21 11/14/20 13:28 Temperature Temperature Source Pulse Rate 113 H 127 H 133 H Pulse Rate from SpO2 Sensor 119 H 121 H Pulse Rhythm Pulse Strength Respiratory Rate 19 20 Respiratory Effort / Characteristics Respiratory Depth Respiratory Pattern Blood Pressure 119/81 133/98 133/98 Blood Pressure Mean 93 109 Blood Pressure Position Pulse Oximetry 97 98 Oxygen Delivery Method Sepsis Recent Fever Within 48 Hours Sepsis New/Unexplained Change in Mental Status Sepsis Action Taken by Nursing 11/14/20 13:30 11/14/20 13:40 11/14/20 13:50 Temperature Temperature Source Pulse Rate 89 120 H 123 H Pulse Rate from SpO2 Sensor 93 H 107 H 120 H Pulse Rhythm Pulse Strength Respiratory Rate 22 20 22 Respiratory Effort / Characteristics Respiratory Depth Respiratory Pattern Blood Pressure 136/75 136/65 123/84 Blood Pressure Mean 95 88 97 Blood Pressure Position Pulse Oximetry 98 98 98 Oxygen Delivery Method Sepsis Recent Fever Within 48 Hours Sepsis New/Unexplained Change in Mental Status Sepsis Action Taken by Nursing 11/14/20 14:00 11/14/20 14:10 Temperature Temperature Source Pulse Rate 115 H 129 H Pulse Rate from SpO2 Sensor 125 H 122 H Pulse Rhythm Pulse Strength Respiratory Rate 20 20 Respiratory Effort / Characteristics Respiratory Depth Respiratory Pattern Blood Pressure 122/79 128/83 Blood Pressure Mean 93 98 Blood Pressure Position Pulse Oximetry 97 90 Oxygen Delivery Method Sepsis Recent Fever Within 48 Hours Sepsis New/Unexplained Change in Mental Status Sepsis Action Taken by Nursing Laboratory Data Result diagrams: 11/14/20 08:45 11/14/20 08:45 Lab Results 11/14/20 11/14/20 11/14/20 Range/Units 08:45 08:45 08:45 WBC 16.16 H (4.8-10.8) K/uL RBC 3.54 L (4.2-5.4) M/uL Hgb 9.6 L (12.0-16.0) g/dL Hct 29.9 L (37-47) % MCV 84.5 (80-100) fL MCH 27.1 (25-34) pg MCHC 32.1 (32-36) g/dL RDW Std Deviation 45.8 (36.4-46.3) fL RDW Coeff of Chauncey 14.8 H (11.5-14.5) % Plt Count 521 H (130-400) K/uL MPV 8.9 (7.4-10.4) fL Immature Gran % (Auto) 0.7 % Neut % (Auto) 84.9 % Lymph % (Auto) 7.9 % Cochran % (Auto) 4.8 % Eos % (Auto) 1.5 % Baso % (Auto) 0.2 % Neut # (Auto) 13.72 H (1.4-6.5) K/uL Lymph # (Auto) 1.27 (1.2-3.4) K/uL Cochran # (Auto) 0.77 H (0.11-0.59) K/uL Eos # (Auto) 0.24 (0-0.5) K/uL Baso # (Auto) 0.04 (0-0.2) K/uL Immature Gran # (Auto) 0.12 H (0.00-0.02) K/uL Sodium 130 L (136-145) mmol/L Potassium 3.8 (3.5-5.1) mmol/L Chloride 95 L (98-107) mmol/L Carbon Dioxide 27 (21-32) mmol/L Anion Gap 7.0 (3-11) BUN 8 (7-18) mg/dl Creatinine 0.34 L (0.6-1.2) mg/dl Est Cr Clr Drug Dosing 102.6 ml/min Est GFR ( Amer) 119.4 ml/min Est GFR (Non-Af Amer) 103.0 ml/min BUN/Creatinine Ratio 24.2 H (10-20) Glucose 88 (70-99) mg/dl Calcium 8.7 (8.5-10.1) mg/dl Magnesium 1.7 L (1.8-2.4) mg/dl Total Bilirubin 0.4 (0.2-1) mg/dl AST 15 (15-37) U/L ALT 15 (12-78) U/L Alkaline Phosphatase 88 (45-117) U/L Troponin I < 0.015 (0-0.045) ng/ml Total Protein 6.3 L (6.4-8.2) gm/dl Albumin 2.3 L (3.4-5.0) gm/dl Globulin 4.0 (2.5-4.0) gm/dl Albumin/Globulin Ratio 0.6 L (0.9-2) Lipase 57 L (73-393) U/L Urine Color Urine Appearance (Clear) Urine pH (4.5-7.5) Ur Specific [place] (1.000-1.030) Urine Protein (Negative) Urine Glucose (UA) (Negative) Urine Ketones (Negative) Urine Blood (Negative) Urine Nitrite (Negative) Urine Bilirubin (Negative) Urine Urobilinogen (Negative) Ur Leukocyte Esterase (Negative) Urine WBC (Auto) (0-5) /hpf Urine RBC (Auto) (0-4) /hpf U Hyaline Cast (Auto) (0-5) /lpf U Epithel Cells (Auto) (0-5) /lpf Urine Bacteria (Auto) (Negative) COVID-19 Eval Order SARS-CoV-2 (PCR) (Negative) 11/14/20 11/14/20 11/14/20 Range/Units 11:30 11:50 12:45 WBC (4.8-10.8) K/uL RBC (4.2-5.4) M/uL Hgb (12.0-16.0) g/dL Hct (37-47) % MCV (80-100) fL MCH (25-34) pg MCHC (32-36) g/dL RDW Std Deviation (36.4-46.3) fL RDW Coeff of Chauncey (11.5-14.5) % Plt Count (130-400) K/uL MPV (7.4-10.4) fL Immature Gran % (Auto) % Neut % (Auto) % Lymph % (Auto) % Cochran % (Auto) % Eos % (Auto) % Baso % (Auto) % Neut # (Auto) (1.4-6.5) K/uL Lymph # (Auto) (1.2-3.4) K/uL Co[place]ran # (Auto) (0.11-0.59) K/uL Eos # (Auto) (0-0.5) K/uL Baso # (Auto) (0-0.2) K/uL Immature Gran # (Auto) (0.00-0.02) K/uL Sodium (136-145) mmol/L Potassium (3.5-5.1) mmol/L Chloride (98-107) mmol/L Carbon Dioxide (21-32) mmol/L Anion Gap (3-11) BUN (7-18) mg/dl Creatinine (0.6-1.2) mg/dl Est Cr Clr Drug Dosing ml/min Est GFR ( Amer) ml/min Est GFR (Non-Af Amer) ml/min BUN/Creatinine Ratio (10-20) Glucose (70-99) mg/dl Calcium (8.5-10.1) mg/dl Magnesium (1.8-2.4) mg/dl Total Bilirubin (0.2-1) mg/dl AST (15-37) U/L ALT (12-78) U/L Alkaline Phosphatase (45-117) U/L Troponin I < 0.015 (0-0.045) ng/ml Total Protein (6.4-8.2) gm/dl Albumin (3.4-5.0) gm/dl Globulin (2.5-4.0) gm/dl Albumin/Globulin Ratio (0.9-2) Lipase (73-393) U/L Urine Color Yellow Urine Appearance Clear (Clear) Urine pH 8.0 H (4.5-7.5) Ur Specific [place] 1.008 (1.000-1.030) Urine Protein Negative (Negative) Urine Glucose (UA) Negative (Negative) Urine Ketones Negative (Negative) Urine Blood Negative (Negative) Urine Nitrite Positive A (Negative) Urine Bilirubin Negative (Negative) Urine Urobilinogen Negative (Negative) Ur Leukocyte Esterase 1+ H (Negative) Urine WBC (Auto) 10-30 H (0-5) /hpf Urine RBC (Auto) 0-4 (0-4) /hpf U Hyaline Cast (Auto) 1-5 (0-5) /lpf U Epithel Cells (Auto) 10-20 H (0-5) /lpf Urine Bacteria (Auto) Negative (Negative) COVID-19 Eval Order Covid19 at [facility] SARS-CoV-2 (PCR) (Negative) 11/14/20 Range/Units 12:45 WBC (4.8-10.8) K/uL RBC (4.2-5.4) M/uL Hgb (12.0-16.0) g/dL Hct (37-47) % MCV (80-100) fL MCH (25-34) pg MCHC (32-36) g/dL RDW Std Deviation (36.4-46.3) fL RDW Coeff of Chauncey (11.5-14.5) % Plt Count (130-400) K/uL MPV (7.4-10.4) fL Immature Gran % (Auto) % Neut % (Auto) % Lymph % (Auto) % Cochran % (Auto) % Eos % (Auto) % Baso % (Auto) % Neut # (Auto) (1.4-6.5) K/uL Lymph # (Auto) (1.2-3.4) K/uL Cochran # (Auto) (0.11-0.59) K/uL Eos # (Auto) (0-0.5) K/uL Baso # (Auto) (0-0.2) K/uL Immature Gran # (Auto) (0.00-0.02) K/uL Sodium (136-145) mmol/L Potassium (3.5-5.1) mmol/L Chloride (98-107) mmol/L Carbon Dioxide (21-32) mmol/L Anion Gap (3-11) BUN (7-18) mg/dl Creatinine (0.6-1.2) mg/dl Est Cr Clr Drug Dosing ml/min Est GFR ( Amer) ml/min Est GFR (Non-Af Amer) ml/min BUN/Creatinine Ratio (10-20) Glucose (70-99) mg/dl Calcium (8.5-10.1) mg/dl Magnesium (1.8-2.4) mg/dl Total Bilirubin (0.2-1) mg/dl AST (15-37) U/L ALT (12-78) U/L Alkaline Phosphatase (45-117) U/L Troponin I (0-0.045) ng/ml Total Protein (6.4-8.2) gm/dl Albumin (3.4-5.0) gm/dl Globulin (2.5-4.0) gm/dl Albumin/Globulin Ratio (0.9-2) Lipase (73-393) U/L Urine Color Urine Appearance (Clear) Urine pH (4.5-7.5) Ur Specific [place] (1.000-1.030) Urine Protein (Negative) Urine Glucose (UA) (Negative) Urine Ketones (Negative) Urine Blood (Negative) Urine Nitrite (Negative) Urine Bilirubin (Negative) Urine Urobilinogen (Negative) Ur Leukocyte Esterase (Negative) Urine WBC (Auto) (0-5) /hpf Urine RBC (Auto) (0-4) /hpf U Hyaline Cast (Auto) (0-5) /lpf U Epithel Cells (Auto) (0-5) /lpf Urine Bacteria (Auto) (Negative) COVID-19 Eval Order SARS-CoV-2 (PCR) NEGATIVE (Negative) Administered Medications Discontinued Medications Amiodarone HCl (Amiodarone Hcl Inj 50 Mg/Ml 3 Ml Vial) Confirm Administered Dose 150 mg IV .STK-MED ONE Stop: 11/14/20 13:03 Last Admin: 11/14/20 13:04 Dose: 150 mg Documented by: [id number] Cosigned by: [id number] Amiodarone HCl (Amiodarone Hcl Inj 50 Mg/Ml 3 Ml Vial) Confirm Administered Dose 150 mg IV .STK-MED ONE Stop: 11/14/20 13:03 Last Admin: 11/14/20 13:14 Dose: Not Given Documented by: [id number] Ceftriaxone Sodium (Rocephin) 1,000 mg in 50 mls @ 100 mls/hr IV NOW STA Stop: 11/14/20 12:28 Last Infusion: 11/14/20 14:17 Dose: 0 mls/hr Documented by: [id number] Admin: 11/14/20 12:41 Dose: 100 mls/hr Documented by: [id number] Magnesium Sulfate/Dextrose (Magnesium Sulfate / D5w) 1 gm in 100 mls @ 100 mls/hr IV NOW STA Stop: 11/14/20 13:19 Last Infusion: 11/14/20 14:17 Dose: 0 mls/hr Documented by: [id number] Admin: 11/14/20 13:14 Dose: 100 mls/hr Documented by: [id number] Amiodarone HCl/Dextrose (Nexterone / D5w) 150 mg in 100 mls @ 600 mls/hr IV NOW STA Stop: 11/14/20 13:27 Last Admin: 11/14/20 14:12 Dose: 600 mls/hr Documented by: [id number] Cosigned by: [id number] Metoprolol Tartrate (Metoprolol Tartrate 1 Mg/Ml Vial) 5 mg IV NOW STA Stop: 11/14/20 13:19 Last Admin: 11/14/20 13:28 Dose: 5 mg Documented by: [id number] Metoprolol Tartrate (Metoprolol Tartrate 1 Mg/Ml Vial) Confirm Administered Dose 5 mg IV .STK-MED ONE Stop: 11/14/20 13:20 Last Admin: 11/14/20 13:29 Dose: Not Given Documented by: [id number] Imaging Data Radiologist's Impression: Chest X-Ray 11/14/20 08:50 XR chest 1V portable HISTORY: Atypical Chest Pain COMPARISON: Chest 10/15/2020. FINDINGS: No pneumothorax. Trace bilateral pleural effusions and bibasilar densities which have improved in the interval. There is mild diffuse interstitial thickening which is likely chronic. No new focal lung consolidations. The heart remains mildly enlarged. Emphysema is again noted. IMPRESSION: 1. Interval improvement in the trace bilateral pleural effusions and bibasilar densities. This favors a resolving pneumonia/atelectasis. 2. Emphysema. ACT 112: Negative or not required by law. Electronically signed by: Stanford Cuadra M.D. 11/14/2020 9:16 AM Discharge Plan Visit Data Chief Complaint: Chest Pain Stated Complaint: CHEST PAIN ED Provider: Cristiano Castro Discharge Problem: Chest pain, Acute UTI, Wide-complex tachycardia Patient Disposition: Being Evaluated by Hospitalist Forms Stand Alone Forms: [facility] Prescriptions Prescriptions: No Action hydrocodone-acetaminophen 5-325 mg tablet 0.5 tab PO Q6H PRN (Reason: pain) Qty: 60 RF: 0 oxycodone 5 mg tablet 5 mg PO Q4H PRN (Reason: Pain) Qty: 120 RF: 0 prednisone 1 mg tablet 2 mg PO QAM RF: 0 pantoprazole [Protonix] 20 mg tablet,delayed release (DR/EC) 20 mg PO QAM RF: 0 cholecalciferol (vitamin D3) 125 mcg (5,000 unit) capsule 5,000 unit PO QPM RF: 0 hydroxychloroquine [Plaquenil] 200 mg Tablet 200 mg PO QAM RF: 0 acetaminophen [Tylenol] 325 mg Tablet 650 mg PO Q8H MDD 3 GRAMS/24 HOURS PRN (Reason: Pain) RF: 0 metoprolol succinate 50 mg tablet extended release 24 hr 50 mg PO Q12H RF: 0 sennosides-docusate sodium [Sennalax-S] 8.6-50 mg Tablet 1 tab-cap PO BID RF: 0 prednisone 5 mg tablet 5 mg PO QAM RF: 0 lisinopril 10 mg tablet 10 mg PO BID RF: 0 calcium carbonate [Tums 500] 500 mg calcium (1,250 mg) Tablet,Chewable 500 mg PO DAILY PRN (Reason: Indigestion) RF: 0 multivitamin with minerals Tablet 1 tab PO QAM RF: 0 [place] 3 Fish Oil 684-1,200 mg Capsule,Delayed Release(Dr/Ec) 1 cap PO QPM RF: 0 Saccharomyces boulardii [Florastor] 250 mg Capsule 250 mg PO QAM RF: 0 Artificial Tears (cmc) 1 % Drops 1 drp OPB DAILY PRN (Reason: Dry Eyes) RF: 0 tramadol 50 mg tablet 50 mg PO Q8H PRN (Reason: pain) RF: 0 amitriptyline 10 mg tablet 10 mg PO HS RF: 0 budesonide-formoterol [Symbicort] 160-4.5 mcg/actuation HFA aerosol inhaler 2 puff Inhalation [id number] RF: 0 docusate sodium 100 mg capsule 100 mg PO QAM PRN (Reason: Constipation) RF: 0 Referrals Referrals: [facility] [Primary Care Provider] - Discharge Problem: Chest pain Qualifiers: Chest pain type: unspecified Qualified Code(s): R07.9 - Chest pain, unspecified
[2020-11-14 09:02] LABS: Basophils # (auto) 0.04 K/uL (0-0.2); Basophils % (auto) 0.2 %; Eosinophils # (auto) 0.24 K/uL (0-0.5); Eosinophils % (auto) 1.5 %; Hematocrit (blood only) 29.9 % (37-47); Hemoglobin 9.6 g/dL (12.0-16.0); Immature Granulocytes # (auto) 0.12 K/uL (0.00-0.02); Immature Granulocytes % (auto) 0.7 %; Lymphocytes # (auto) 1.27 K/uL (1.2-3.4); Lymphocytes % (auto) 7.9 %; Mean Corpuscular Hemoglobin 27.1 pg (25-34); Mean Corpuscular Hgb Conc 32.1 g/dL (32-36); Mean Corpuscular Volume 84.5 fL (80-100); Mean Platelet Volume 8.9 fL (7.4-10.4); Monocytes # (auto) 0.77 K/uL (0.11-0.59); Monocytes % (auto) 4.8 %; Neutrophils # (auto) 13.72 K/uL (1.4-6.5); Neutrophils % (auto) 84.9 %; Platelet Count 521 K/uL (130-400); RDW Coefficient of Variation 14.8 % (11.5-14.5); RDW Standard Deviation 45.8 fL (36.4-46.3); Red Blood Count 3.54 M/uL (4.2-5.4); White Blood Count 16.16 K/uL (4.8-10.8)
--- NOTE | 2020-11-14 09:18 | XRay Report ---
XR chest 1V portable HISTORY: Atypical Chest Pain COMPARISON: Chest 10/15/2020. FINDINGS: No pneumothorax. Trace bilateral pleural effusions and bibasilar densities which have impro clive in the interval. There is mild diffuse interstitial thickening which is likely chronic. No new fo karie lung consolidations. The heart remains mildly enlarged. Emphysema is again noted. IMPRESSION: 1. Interval improvement in the trace bilateral pleural effusions and bibasilar densities. This favors a resolving pneumonia/atelectasis. 2. Emphysema. ACT 112: Negative or not required by law. Electronically signed by: Stanford Cuadra M.D. 11/14/2020 9:16 AM
[2020-11-14 09:19] LABS: Alanine Aminotransferase 15 U/L (12-78); Albumin Level 2.3 gm/dl (3.4-5.0); Aspartate Aminotransferase 15 U/L (15-37); BUN Creatinine Ratio 24.2 (10-20); Blood Urea Nitrogen 8 mg/dl (7-18); Calcium 8.7 mg/dl (8.5-10.1); Carbon Dioxide 27 mmol/L (21-32); Chloride 95 mmol/L (98-107); Creatinine Clr Calc Pharmacy 102.6 ml/min; Est GFR (African American) 119.4 ml/min; Glucose 88 mg/dl (70-99); Lipase 57 U/L (73-393); Potassium 3.8 mmol/L (3.5-5.1); Sodium 130 mmol/L (136-145)
[2020-11-14 09:23] LABS: Albumin Globulin Ratio 0.6 (0.9-2); Alkaline Phosphatase 88 U/L (45-117); Bilirubin,Total 0.4 mg/dl (0.2-1); Total Protein 6.3 gm/dl (6.4-8.2); Troponin I < 0.015 ng/ml (0-0.045)
[2020-11-14 11:42] LABS: Appearance Urine Clear (Clear); Bacteria Urine Automated Negative (Negative); Bilirubin Urine Negative (Negative); Blood Urine Negative (Negative); Color Urine Yellow; Glucose Urine UA Negative (Negative); Ketones Urine Negative (Negative); Leukocyte Esterase Urine 1+ (Negative); Nitrite Urine Positive (Negative); Protein Urine Negative (Negative); RBC Urine Automated 0-4 /hpf (0-4); Specific Gravity Urine 1.008 (1.000-1.030); Urobilinogen Urine Negative (Negative)
[2020-11-14] MEDS ORDERED: cefTRIAXone SODIUM 1,000 MG/50 ML BAG IV STA (11:59)
[2020-11-14] MEDS ORDERED: MAGNESIUM SULFATE / D5W 1 GM/100 ML BAG IV STA (12:20)
[2020-11-14] MEDS ORDERED: AMIODARONE HCL INJ 50 MG/ML 3 ML VIAL IV ONE ×2 (13:02)
[2020-11-14] MEDS ORDERED: METOPROLOL TARTRATE 1 MG/ML VIAL IV STA ×2 (13:18→13:47)
[2020-11-14] MEDS ORDERED: 0.2 MICRON FILTER SET 1 EA IV ONE ×2 (13:18→16:36)
[2020-11-14] MEDS ORDERED: AMIODARONE / D5W 150 MG/100 ML BAG IV STA (13:18)
[2020-11-14] MEDS ORDERED: METOPROLOL TARTRATE 1 MG/ML VIAL IV ONE (13:19)
--- NOTE | 2020-11-14 14:40 | History & Physical Report ---
Date of Service November 14, 2020 Assessment & Plan Admission and Anticipated Discharge Date Admission Date: 80 y/o F Hx HTN, anemia, COPD, RA, systolic CHF. She presented to the ER from a nursing facility due to intermittent chest pain. The pain is central, nonradiating. She has not had SOB, lightheadedness or diaphoresis. While in the ER she initially had short runs of VT and then developed mostly sustained VT although her vitals remained stable, and this did not appear to elicit chest pain. Initial labs are notable for stable anemia and thrombocytosis. A UA is equivocal. CXR demonstrates small BL effusions and possibly BL infiltrates as well. She had a temp of 100 on arrival. The pt was evaluated by cardiology in the ER and placed on amiodarone. She will be transferred to the ICU. 1) Sustained VT - Pt is placed on amiodarone. She had received mag and IV metoprolol in the ER. She may be cardioverted although she is DNR. Would DC her Plaquenil at this point. 2) Chest pain - serial trops and an echo ordered. She received ASA and metopro lol. She was scheduled for a CTA to evaluate for both PE and PNM as the cause of her CP and abnormal CXR. We will proceed when she is stable. 3) COPD - no evidence of exacerbation - would avoid stimulant inhalers at this point. 02 protocol. 4) RA - cont low-dose prednisone - Plaquenil held 5) CHF - euvolemic on admission - can resume lisinopril and metoprolol AM 6) Anemia is stable - cause for thrombocytosis is not clear. She is placed on SQ Lovenox. 7) Due to her low-grade temp, +UA and possible PNM - she will be started on ceftriaxone/doxy pending imaging results. DNR/DNI - cardioversion is OK and was discussed Total time for this admit including review of labs, meds, imaging, EKG, records - discussion with pt and ER attending - 55 min includes critical care time History of Present Illness Chief Complaint: Chest pain Primary Care Provider: [facility] 80 y/o F Hx HTN, anemia, COPD, RA, systolic CHF. She presented to the ER from a nursing facility due to intermittent chest pain. The pain is central, nonradiating. She has not had SOB, lightheadedness or diaphoresis. While in the ER she initially had short runs of VT and then developed mostly sustained VT although her vitals remained stable, and this did not appear to elicit chest pain. Initial labs are notable for stable anemia and thrombocytosis. A UA is equivocal. CXR demonstrates small BL effusions and possibly BL infiltrates as well. The pt was evaluated by cardiology in the ER and placed on amiodarone. She will be transferred to the ICU. PMH: 1) RA 2) COPD 3) Systolic CHF - EF 40% 4) HTN 5) COPD 6) Anemia - baseline Hb 9-10 7) SBO Surgical: 1) Colonic resection with colostomy and reversal 2) R TKR Social: Does not smoke or drink Family: Noncontributory Allergies Allergy/AdvReac Type Severity Reaction Status Date / Time ciprofloxacin Allergy Severe PASSED Verified 11/14/20 10:02 OUT, SEVERE RXN PER PATIENT nut - unspecified Allergy Intermediate HIVES Verified 11/14/20 10:02 banana Allergy Mild RASH Verified 11/14/20 10:02 latex Allergy Mild RASH Verified 11/14/20 10:02 moxifloxacin Allergy Mild PAIN IN Verified 11/14/20 10:02 HEEL nickel Allergy Mild RASH ON Verified 11/14/20 10:02 EARS WITH EARRINGS WITH NICKEL Sulfa (Sulfonamide Allergy Mild Rash Verified 11/14/20 10:02 Antibiotics) fluconazole AdvReac Intermediate TACHYCARDIA, Verified 11/14/20 10:02 HAIR LOSS adhesive AdvReac Mild CONTACT Verified 11/14/20 10:02 DERMATITIS codeine AdvReac Mild DIZZINESS Verified 11/14/20 10:02 hydrocodone AdvReac Dizziness Verified 11/14/20 10:02 Home Medications Medication Instructions Recorded Confirmed Type hydroxychloroquine [Plaquenil] 200 mg PO QAM 06/21/18 11/14/20 History cholecalciferol (vitamin D3) 125 5,000 unit PO QPM 08/20/20 11/14/20 History mcg (5,000 unit) capsule pantoprazole 20 mg tablet,delayed 20 mg PO QAM 08/20/20 11/14/20 History release prednisone 1 mg tablet 2 mg PO QAM tab 08/20/20 11/14/20 History acetaminophen [Tylenol] 650 mg PO Q8H PRN MDD 3 GRAMS/24 09/13/20 11/14/20 History HOURS calcium carbonate [Tums 500] 500 mg PO DAILY PRN 09/13/20 11/14/20 History lisinopril 10 mg PO BID 09/13/20 11/14/20 History metoprolol succinate 50 mg PO Q12H 09/13/20 11/14/20 History multivitamin with minerals 1 tab PO QAM 09/13/20 11/14/20 History omega-3 fatty acids-fish oil 1 cap PO QPM 09/13/20 11/14/20 History [[place] 3 Fish Oil] prednisone 5 mg PO QAM 09/13/20 11/14/20 History sennosides-docusate sodium 1 tab-cap PO BID 09/13/20 11/14/20 History [Sennalax-S] Saccharomyces boulardii [Florastor] 250 mg PO QAM 10/15/20 11/14/20 History amitriptyline 10 mg PO HS 10/15/20 11/14/20 History budesonide-formoterol [Symbicort] 2 puff INHALATION BID17 10/15/20 11/14/20 History carboxymethylcellulose sodium 1 drp OPB DAILY PRN 10/15/20 11/14/20 History [Artificial Tears (cmc)] tramadol 50 mg PO Q8H PRN 10/15/20 11/14/20 History hydrocodone 5 mg-acetaminophen 325 0.5 tab PO Q6H PRN #60 tab 11/11/20 11/14/20 Rx mg tablet docusate sodium 100 mg PO QAM PRN 11/14/20 11/14/20 History oxycodone 5 mg tablet 5 mg PO Q4H PRN #120 tab 11/14/20 Rx Past Med/Surg History Medical History Acute diverticulitis Asthma Atopic dermatitis Bronchitis Diverticula of colon Duodenal ulcer Eczema 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 Stroke like symptoms. History of intestinal obstruction HTN (hypertension) Hx of lower gastrointestinal bleeding 2019-RESOLVED Incisional hernia without obstruction or gangrene Intraoperative ureteral injury PT DENIES Long-term use of hydroxychloroquine Multiple pulmonary nodules DUE TO RA Osteoporosis Peptic ulcer disease Seropositive rheumatoid arthritis Sjogrens syndrome SOB (shortness of breath) on exertion Surgical History History of colonoscopy History of colostomy History of colostomy reversal ETT#7, Glidescope #3, Grade 1 View - attempt x 1, atraumatic History of esophagogastroduodenoscopy (EGD) History of facial surgery History of partial colectomy History of tonsillectomy and adenoidectomy History of total knee arthroplasty RIGHT Hx of right heart catheterization 2018 [facility] > NO STENTS Status post right foot surgery 2012 AT [place] Ventral hernia with bowel obstruction Family History Mother Asthma Heart disease Renal failure Brother Heart disease Father Pneumonia Other History of section Ventral hernia with bowel obstruction Social History Smoking Status: Former smoker Years Smoked: 2; Second Hand Exposure: No; Hx Alcohol Use: No Hx Substance Use: No Preferred Language: Khmer Communication Ability: Effective Visual Impairment: No Limitations Senior Private Client Advisor Required: No Beliefs That Will Affect Care: Spiritual marital status: / Current Living Situation: Alone current occupational status: retired Feels Safe at Home: Yes Seatbelt Use: always Assistive Devices: Oxygen - Continuous Review of Systems Review of Systems: Gen: Denies fevers, night sweats, rigors, fatigue, malaise, weight loss/gain ENT: Denies congestion, throat pain, hearing loss Eyes: Denies acute visual changes CV: Central CP as above Pulmonary: Denies SOB, cough, wheezing GI: Denies N/V, diarrhea, constipation Neuro: Denies acute or unilateral weakness, acute gait impairment, headache or acute visual changes Musculoskeletal: Denies joint pain, inflammation Endocrine: Denies polydipsia, polyuria Skin: Denies acute rashes or ulcers Physical Exam Physical Exam: General: Frail-appearing, elderly F, AAO x 3, no distress ENT: No erythema or exudates, no thrush Eyes: Visually impared L - chronic strabismus Head and neck: Normocephalic, atraumatic, No JVD, neck is supple. Chest/heart: Chest wall is nontender - rhythm is tachy, irreg Lungs: CTAB, no wheezing or crackles Abdomen: Nontender, nondistended, BS+ Neuro: AAO x 3, speech is clear, no unilateral weakness or loss of sensation, coordination intact Musculoskeletal: No joint inflammation, muscle tenderness, FROM Skin: No acute rashes or ulcers Extremities: No clubbing, cyanosis, edema Results & Data Results & Data ([facility]) Vital Signs (Past 12 Hours) Vital Signs Temp Pulse Resp BP Pulse Ox 11/14/20 13:28 133 H 133/98 11/14/20 12:30 102 H 19 161/98 H 94 11/14/20 12:00 88 20 163/81 H 98 11/14/20 11:30 101 H 18 160/71 H 96 11/14/20 11:00 95 H 24 161/90 H 95 11/14/20 10:30 99 H 22 153/81 H 93 11/14/20 10:00 99 H 20 154/87 H 93 11/14/20 09:30 90 24 148/71 H 94 11/14/20 09:00 91 H 18 163/95 H 96 11/14/20 08:50 98 11/14/20 08:34 98 H 24 174/105 H 98 11/14/20 08:33 99.9 F H 98 H 19 174/105 H 98 PG Care Time/CCT Total # of Minutes Spent Total Time Spent with Patient: Total time spent is greater than 50% in coordination of care (as documented) at patient's floor/unit and/or counseling patient: Coding Level of Care Code 48143 Initial Inpt Care Lvl 3
[2020-11-14] MEDS ORDERED: CALCIUM CARBONATE 500 MG CHEWABLE TAB PO PRN (15:45)
[2020-11-14] MEDS ORDERED: traMADol HCL 50 MG TABLET PO PRN (15:45)
[2020-11-14] MEDS ORDERED: ICU PROTOCOL FOR HYPERGLYCEMIA PRN (15:45)
[2020-11-14] MEDS ORDERED: NITROGLYCERIN SL 0.4 MG/TAB TAB SL PRN (15:45)
[2020-11-14] MEDS ORDERED: ACETAMINOPHEN 325 MG TAB PO PRN (15:45)
--- NOTE | 2020-11-14 16:05 | Critical Care Consultation ---
Date of Consultation November 14, 2020 Assessment & Plan (1) Ventricular tachycardia: REASON CRITICALLY ILL: This is an 80-year-old female with a notable history of hypertension, COPD, rheumatoid arthritis, recent hospitalization for L pubic rami fracture, anemia, heart failure with reduced ejection fraction who presented to [facility] for evaluation of intermittent chest pain at her nursing facility; in the ER, she was found to be hemodynamically stable, but began having intermittent bouts of non-sustained VT, followed by sustained VT without hemodynamic alteration. She was started on amiodarone by cardiology and currently remains hemodynamically stable in NSR. She requires ICU-level care for close cardiac and hemodynamic monitoring in the setting of recent VT. Neuro - Sedation: None. Analgesia: Acetaminophen, tramadol for break-through pain. Can also consider IV morphine if needed. * With known history of inoperable pontine hemangioma causing residual facial n erve deficits on the R face - appreciable on exam, not new * Otherwise, no acute needs at this time. Cardiac - Sustained Ventricular Tachycardia * Observed run of sustained VT in the ED that subsequently resolved s/p Toprol 5mg x 1, amiodarone 150mg bolus, and magnesium IV. Per cardiology, may have represented RVOT-originated VT * Does have h/o NSVT at [facility] during hospitalization for SBO in 07/2020 * Now demonstrating NSR. Continue amiodarone gtt at 1mg/min x 6 hours, followed by 0.5mg/min x 18 hours thereafter * Consider amiodarone PO tomorrow vs. titration of BB * Per numerous discussions previously during this course, patient is DNR/DNI, but is amenable to cardioversion if needed * Continuous cardiac monitoring * Maintain: Mg > 2, Phos > 3, K > 4 Chest Pain * Based on prior reports, pain seems to be relatable to her wide complex tachyarrhythmia and improved with rate control * ECG without acute ST-T abnormalities on arrival, during early course in ER * Troponin negative x 2 - will trend * Saturating well on RA. Normal respiratory rate, heart rate now. Lower suspicion for PE at this time. * Cardiology already consulted. * Await echo Nonischemic HFrEF * 07/2020 echo demonstrating LVEF 40% * Continue home medications - metoprolol and lisinopril for now * Echo as above Respiratory - History of COPD * No supplemental oxygen requirement. Respiratory status stable. * Continue home inhalers GI - * No special needs at this time. * h/o complex bowel surgery in past, c/b ventral hernias and SBOs requiring hospitalization (as recently as 07/2020) noted * Heart healthy diet RENAL/LYTES * No significant electrolyte derangement * Replace lytes as needed. * Maintain: Mg > 2, Phos > 3, K > 4 - * No special concerns at this time ENDO / RHEUM: History of RA * Noted, on chronic prednisone therapy and HCQ * Continue prednisone therapy * Hold HCQ for now HEME - * Iron-deficiency anemia, chronic, noted at 9.6 - consistent with previous numbers * Will continue to monitor while here * Can consider iron supplementation when consistently demonstrating stability * H/O GIB - not on ASA ID - * Elevated temperature of 37.7 noted * Persistent, but improved, leukocytosis with PMN predominance noted -- ?demargination from chronic steroids * CXR did demonstrate haziness in RLL, although on review of previous CT this appears to be chronic - likely atelectic * Will check procalc * Positive nitrites and LE with WBCs in setting of epis noted * Await procalc. Continue to trend. Consider discontinuation of CFTX, doxy pending results. INTEGUMENTARY - * No acute concerns LINES/IV ACCESS - PIVs intact. DVT PROPHYLAXIS - pLov Thank you for allowing us to be part of this patient's care. Please refer to Dr. Garcia's documentation for any further recommendations. (2) CAD (coronary artery disease): (3) Chest pain: (4) Acute UTI: (5) Wide-complex tachycardia: (6) Neck pain: (7) GERD (gastroesophageal reflux disease): (8) Hypomagnesemia: (9) Hx of right heart catheterization: (10) Multiple pulmonary nodules: (11) Long-term use of hydroxychloroquine: (12) Insomnia: (13) Hypertension: (14) Chronic obstructive asthma: (15) Cardiomyopathy: (16) Generalized osteoarthritis of multiple sites: (17) Abdominal hernia: Supervising Physician Co-Signing Physician Notes Dr. Santamaria was the resident-physician during care of patient. I separately evaluated patient for mckeon portions of the history and the exam. I was present during the critical portion of medical decision making, and I discussed the case with the resident. I generally agree with the findings and plan except for any additions/exceptions noted. 80-year-old female past medical history of COPD, cardiomyopathy EF 40%, recent fracture of the pelvis being treated conservatively, rheumatoid arthritis presented to the ED with complaints of intermittent chest pain. In the ED patient was found to be in short runs of VT T with development of sustained V. tach. Patient was given amiodarone bolus and she converted to sinus. Patient was sent to the ICU for further management. At the time of examination patient denies any chest pain. She had normal sinus rhythm. She denied any dizziness, no headache, no nausea, no vomiting. She was complaining of pain around the pelvis region. Asking for pain medication. She denies any fever or chills. No dysuria, no diarrhea. Constitutional: No acute distress HEENT: EOMI, PERRLA, mediastinal isthmus right eye, right-sided facial droop(chronic) Respiratory system: Decreased air entry bilaterally, no wheeze, no rhonchi, mild crackles bilateral lower lobes CVS: S1-S2 positive, no murmurs or gallops Abdomen: Soft, nontender, nondistended, positive bowel sounds x4 Extremities: +2 pulses bilaterally radialis/ dorsalis pedis, no cyanosis, no edema Neuro: Awake alert oriented x3 Psych: Normal mood and affect G/U: No [place] Plan: The etiology of patient's underlying V. tach is likely cardiac in origin. Patient was saturating 97% on room air. I do not think there is a pulmonary etiology for her underlying V. tach Keep potassium greater than 4, magnesium greater than 2, phosphorus greater than 3. Continue with amiodarone drip 1 mg/h for 6 hours followed by 0.5 mg/h for 18 hours. Patient will likely be transition to p.o. amiodarone Cardiology is on board. Patient chest x-ray shows mild haziness in the right lower lobe which likely represent atelectasis that the patient had on recent CAT scan done October 2020 We will follow-up procalcitonin. If the procalcitonin is negative likely will discontinue antibiotic. Yes urine +1 leukocyte esterase. Negative for bacteria. Continue with Rocephin and doxycycline for the time being. Patient with history of RA and is on chronic prednisone 5 mg along with hydroxychloroquine. I will hold hydroxychloroquine for the time being as it has been associated with prolonged QT. QTC at the time of presentation was 474. Which is prolonged but not prolonged enough to cause V. tach. Continue with pain medications for nondisplaced pelvic fracture. Patient has chronic hyponatremia, will order cortisol level I have personally spent 55 minutes of critical care time in the direct managem ent of this patient. This is a life/limb threatening event. This includes time spent evaluating patient, direct bedside care, chart review, placing orders, interpretation of diagnostic studies, discussion with consultants, patient, and/or family members regarding treatment decisions, as well as other required patient management activities. This time is exclusive of all separately billable procedures, and teaching time and separate from and in addition to any other critical care service time. 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 Based on reports from the ER, patient woke up with centralized, nonradiating chest pain that had spontaneously resolved before her arrival. There was no associated shortness of breath, and no associated trauma. She did not take her morning medications, including metoprolol. In the ED, she was not found to have any EKG changes concerning for STEMI, and her initial troponin was negative. There was a mild leukocytosis in the presence of chronic steroid use, alongside chronic iron deficiency anemia and hyponatremia. Her CXR demonstrated mild bilateral pleural effusions. She was found to have multiple runs of PVCs, and one episode that was approximately 10 to 12 seconds. Just prior to receiving magnesium IV, she went into a wide- complex tachycardia that was concerning for ventricular tachycardia. She rodolfo ined hemodynamically stable through this without symptoms. She was given a bolus of amiodarone 150 mg at the recommendation of cardiology, and was also given metoprolol. Subsequently converted thereafter with good rates. Upon her arrival in the ICU, Ranjit was found to be hemodynamically stable and without chest pain. She does report quite a bit of pain in her hips, which has been ongoing since her recent bilateral pubic rami fracture that was sustained after a fall several weeks ago. She denies any shortness of breath. Denies any nausea or vomiting. Last oral intake was last night. No numbness or tingling. 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 Allergies Allergy/AdvReac Type Severity Reaction Status Date / Time ciprofloxacin Allergy Severe PASSED Verified 11/14/20 10:02 OUT, SEVERE RXN PER PATIENT nut - unspecified Allergy Intermediate HIVES Verified 11/14/20 10:02 banana Allergy Mild RASH Verified 11/14/20 10:02 latex Allergy Mild RASH Verified 11/14/20 10:02 moxifloxacin Allergy Mild PAIN IN Verified 11/14/20 10:02 HEEL nickel Allergy Mild RASH ON Verified 11/14/20 10:02 EARS WITH EARRINGS WITH NICKEL Sulfa (Sulfonamide Allergy Mild Rash Verified 11/14/20 10:02 Antibiotics) fluconazole AdvReac Intermediate TACHYCARDIA, Verified 11/14/20 10:02 HAIR LOSS adhesive AdvReac Mild CONTACT Verified 11/14/20 10:02 DERMATITIS codeine AdvReac Mild DIZZINESS Verified 11/14/20 10:02 hydrocodone AdvReac Dizziness Verified 11/14/20 10:02 Home Medications Medication Instructions Recorded Confirmed Type hydroxychloroquine [Plaquenil] 200 mg PO QAM 06/21/18 11/14/20 History cholecalciferol (vitamin D3) 125 5,000 unit PO QPM 08/20/20 11/14/20 History mcg (5,000 unit) capsule pantoprazole 20 mg tablet,delayed 20 mg PO QAM 08/20/20 11/14/20 History release prednisone 1 mg tablet 2 mg PO QAM tab 08/20/20 11/14/20 History acetaminophen [Tylenol] 650 mg PO Q8H PRN MDD 3 GRAMS/24 09/13/20 11/14/20 History HOURS calcium carbonate [Tums 500] 500 mg PO DAILY PRN 09/13/20 11/14/20 History lisinopril 10 mg PO BID 09/13/20 11/14/20 History metoprolol succinate 50 mg PO Q12H 09/13/20 11/14/20 History multivitamin with minerals 1 tab PO QAM 09/13/20 11/14/20 History omega-3 fatty acids-fish oil 1 cap PO QPM 09/13/20 11/14/20 History [[place] 3 Fish Oil] prednisone 5 mg PO QAM 09/13/20 11/14/20 History sennosides-docusate sodium 1 tab-cap PO BID 09/13/20 11/14/20 History [Sennalax-S] Saccharomyces boulardii [Florastor] 250 mg PO QAM 10/15/20 11/14/20 History amitriptyline 10 mg PO HS 10/15/20 11/14/20 History budesonide-formoterol [Symbicort] 2 puff INHALATION BID17 10/15/20 11/14/20 History carboxymethylcellulose sodium 1 drp OPB DAILY PRN 10/15/20 11/14/20 History [Artificial Tears (cmc)] tramadol 50 mg PO Q8H PRN 10/15/20 11/14/20 History hydrocodone 5 mg-acetaminophen 325 0.5 tab PO Q6H PRN #60 tab 11/11/20 11/14/20 Rx mg tablet docusate sodium 100 mg PO QAM PRN 11/14/20 11/14/20 History oxycodone 5 mg tablet 5 mg PO Q4H PRN #120 tab 11/14/20 Rx Patient History Medical History (Updated 11/14/20 @ 16:06 by Prudencio Frederick MD) Acute diverticulitis Asthma Atopic dermatitis Bronchitis CAD (coronary artery disease) Diverticula of colon Duodenal ulcer Eczema Facial nerve palsy HAPPENED AT AGE 17> RIGHT SIDE High risk medication use 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 Stroke like symptoms. History of intestinal obstruction HTN (hypertension) Hx of lower gastrointestinal bleeding 2019-RESOLVED Incisional hernia without obstruction or gangrene Intraoperative ureteral injury PT DENIES Long-term use of hydroxychloroquine Multiple pulmonary nodules DUE TO RA Osteoporosis Peptic ulcer disease Seropositive rheumatoid arthritis Sjogrens syndrome SOB (shortness of breath) on exertion Ventricular tachycardia Surgical History History of colonoscopy History of colostomy History of colostomy reversal ETT#7, Glidescope #3, Grade 1 View - attempt x 1, atraumatic History of esophagogastroduodenoscopy (EGD) History of facial surgery History of partial colectomy History of tonsillectomy and adenoidectomy History of total knee arthroplasty RIGHT Hx of right heart catheterization 2018 [facility] > NO STENTS Status post right foot surgery 2012 AT [facility] Ventral hernia with bowel obstruction Family History Mother Asthma Heart disease Renal failure Brother Heart disease Father Pneumonia Other History of section Ventral hernia with bowel obstruction Social History Smoking Status: Former smoker Years Smoked: 2; Second Hand Exposure: No; Do You Dip or Chew Tobacco: No; Tobacco Cessation Education Requested by Patient: No Hx Alcohol Use: No Hx Substance Use: No Preferred Language: Khmer Communication Ability: Effective Visual Impairment: No Limitations 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 She is easily arousable and fully alert and responsive to questioning. Mild distress secondary to hip pain b/l. HEENT: NCAT. Eyes - Sclera are white, anicteric, and without injection. EOMs - IOL on right appreciated - cannot abduct past midline. Mouth - MMM with no tonsillar edema or exudates. Cardiac: Normal rate and regular rhythm; S1 and S2 present with no murmurs, rubs, or gallops. No appreciable JVD. Pulmonary: Good respiratory effort with symmetric expansion of the chest. No use of accessory muscles. Lungs were clear to auscultation bilaterally with no crackles or wheezes. Abdominal: Normoactive bowel sounds. Abdomen was appreciable for two chronic, bilateral ventral hernias, and was soft, nondistended, and non-tender to palpation. Neuro: Right facial droop with inability to abduct past midline on R eye. Equal 4/5 UE strength. Limited exam of LEs secondary to pain bilaterally - she was able to wiggle her toes and resisted plantar flexion was ~4/5. Extremities: Upper and lower extremities are warm and well perfused. There is 1+ pitting edema in the LEs bilaterally. Capillary refill assessed in UE was < 3 sec. Results & Data Results & Data ([facility]) Vital Signs (Past 12 Hours) Vital Signs Temp Pulse Resp BP Pulse Ox 11/14/20 15:10 87 22 148/81 H 95 11/14/20 15:00 91 H 19 157/82 H 91 11/14/20 14:50 86 20 152/82 H 98 11/14/20 14:40 84 21 148/74 H 98 11/14/20 14:30 124 H 24 133/72 97 11/14/20 14:20 129 H 19 116/74 98 11/14/20 14:10 129 H 20 128/83 90 11/14/20 14:00 115 H 20 122/79 97 11/14/20 13:50 123 H 22 123/84 98 11/14/20 13:40 120 H 20 136/65 98 11/14/20 13:30 89 22 136/75 98 11/14/20 13:28 133 H 133/98 11/14/20 13:21 127 H 20 133/98 98 11/14/20 13:17 113 H 19 119/81 97 11/14/20 13:00 119 H 19 103/74 96 11/14/20 12:30 102 H 19 161/98 H 94 11/14/20 12:00 88 20 163/81 H 98 11/14/20 11:30 101 H 18 160/71 H 96 11/14/20 11:00 95 H 24 161/90 H 95 11/14/20 10:30 99 H 22 153/81 H 93 11/14/20 10:00 99 H 20 154/87 H 93 11/14/20 09:30 90 24 148/71 H 94 11/14/20 09:00 91 H 18 163/95 H 96 11/14/20 08:50 98 11/14/20 08:34 98 H 24 174/105 H 98 11/14/20 08:33 37.7 C H 98 H 19 174/105 H 98 11/14/20 08:45 11/14/20 08:45 Resident Activity Tracking Resident Involvement: Resident Care Provided Care Provided: Adult Hospital Medicine (1) Chest pain Chest pain type: unspecified Qualified Code(s): R07.9 - Chest pain, unspecified (2) Abdominal hernia Hernia type: other abdominal hernia Obstruction and gangrene presence: with obstruction but without gangrene Qualified Code(s): K45.0 - Other specified abdominal hernia with obstruction, without gangrene
--- NOTE | 2020-11-14 16:08 | Cardiology Consultation ---
Date of Consultation November 14, 2020 Assessment & Plan (1) Ventricular tachycardia: (2) Wide-complex tachycardia: (3) Chest pain: (4) Cardiomyopathy: (5) CAD (coronary artery disease): ASSESSMENT/PLAN: 1. Wide complex tachycardia/VT: Has a history of nonsustained ventricular tachycardia and developed sustained wide complex tachycardia today. Morphology of the QRS complexes is the same as her PVCs. They appear to be from the RV, possibly RVOT based on ECG findings. While at the bedside in the emergency department, recommended another bolus of amiodarone 150 mg IV with amiodarone drip. Also recommended her oral metoprolol which she did not receive today. Fortunately, shortly thereafter she converted to sinus rhythm, before leaving the ER. Echocardiogram is pending. Can continue amiodarone drip overnight and consider p.o. amiodarone tomorrow verses titration of beta-mar, which may be effective in the setting of RV OT tachycardia. We did discuss cardioversion if necessary and she was agreeable but does not wish to be resuscitated if cardiac arrest situation. Repeat TSH level. Magnesium was supplemented by ED. 2. Chest pain: Chest pressure seems to correlate with her wide complex tachycardia and improves with improvement of heart rate. Troponins have been negative x3 with pain throughout most of today. Echo is pending. 3. Cardiomyopathy: Nonischemic in nature. Most recent reported EF was 40% at [facility] in July of 2020. Echo has been ordered by primary service and is currently pending. Continue metoprolol succinate 50 mg q.12 hours. Continue BENJAMIN- inhibitor. She appears euvolemic. 4. CAD: Very mild nonobstructive CAD noted on 2018 cardiac catheterization. She does have chest discomfort today which appears to correlate with her wide complex tachycardia. Serial troponins negative thus far x3. Has had GI bleeding in the past with NSAIDs and therefore is not on aspirin. 5. Disposition: Cardiology will continue to follow. Dr. Irene will likely resume her cardiology care tomorrow. Patient care discussed with Dr. Castro of the emergency department, as well as Dr. Dangelo of the admitting hospitalist service. Highly complex medical issues. 50 minutes of critical care time. This time included evaluating patient, managing amiodarone for wide complex tachycardia/V-tach, discussing possible cardioversion, coordinating care, discussion with other providers, chart/record review. Thank you for allowing me to participate in the care of your patient. Please call for any other questions or concerns. Sincerely, Yrn Frederick M.D. History of Present Illness Reason for Consultation: Wide complex tachycardia and chest pain Requesting Physician: Dr. Castro Attending Physician: Mike Dangelo MD History of Present Illness Ms. Zepeda is a pleasant 80-year-old female with a history significant for nonischemic cardiomyopathy, rheumatoid arthritis, GI bleed (on NSAID) requiring PRBC transfusion, hypertension, ventricular tachycardia, and COPD. 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 She has been seen in consultation in the past by Dr. Irene. She has a history of nonsustained ventricular tachycardia and was hospitalized at [facility] in July of 2020 were her EF was reported as 40% (consistent with prior EF here in 2018). She was hospitalized at [facility] for small bowel obstruction and cardiology saw her in consultation and recommended continuation of beta-mar. There was no reported sustained arrhythmia. She underwent cardiac catheterization in 2018 and had mild nonobstructive CAD involving the RCA, but otherwise no significant CAD. She presented to the emergency department today for substernal chest pressure which occurred intermittently in the past but has been constant since approximately 4:30 a.m. today. There was no radiation of the pain. She denies shortness of breath, syncope, near-syncope, palpitations, or worsening edema. She has chronic lower extremity edema. She states that she is bed ridden ever since having a mechanical fall recently in October of 2020 suffering a left pelvic fracture. I was called by Dr. Castro of the emergency department for wide complex tachycardia. Presentation, she was in sinus rhythm with PACs and was having episodes of nonsustained ventricular tachycardia and also PVCs. She then developed sustained wide complex tachycardia with heart rates as high as the 150s per ED provider. She was given amiodarone 150 mg IV and also intravenous metoprolol. Her heart rate improved to 100-110s and chest pain also improved. I presented to the bedside and her heart rate was more elevated in the 120s to 130s. Another dose of amiodarone 150 mg IV was recommended followed by amiodarone drip. Also recommended that she receive her oral metoprolol which she did not take at home today. She denies melena, hematochezia, hematuria, or other bleeding. She denies recent stroke symptoms. Review of systems: As above. Review of systems otherwise negative/unremarkable. Family history: Mother from emphysema at the age of 50. Social history: She quit smoking many years ago. Rare alcohol. She currently resides in assisted living at [facility]. She has not been . No children. Her nephew, Matthew, was present in the emergency department at her bedside. Allergies Allergy/AdvReac Type Severity Reaction Status Date / Time ciprofloxacin Allergy Severe PASSED Verified 11/14/20 10:02 OUT, SEVERE RXN PER PATIENT nut - unspecified Allergy Intermediate HIVES Verified 11/14/20 10:02 banana Allergy Mild RASH Verified 11/14/20 10:02 latex Allergy Mild RASH Verified 11/14/20 10:02 moxifloxacin Allergy Mild PAIN IN Verified 11/14/20 10:02 HEEL nickel Allergy Mild RASH ON Verified 11/14/20 10:02 EARS WITH EARRINGS WITH NICKEL Sulfa (Sulfonamide Allergy Mild Rash Verified 11/14/20 10:02 Antibiotics) fluconazole AdvReac Intermediate TACHYCARDIA, Verified 11/14/20 10:02 HAIR LOSS adhesive AdvReac Mild CONTACT Verified 11/14/20 10:02 DERMATITIS codeine AdvReac Mild DIZZINESS Verified 11/14/20 10:02 hydrocodone AdvReac Dizziness Verified 11/14/20 10:02 Home Medications Medication Instructions Recorded Confirmed Type hydroxychloroquine [Plaquenil] 200 mg PO QAM 06/21/18 11/14/20 History cholecalciferol (vitamin D3) 125 5,000 unit PO QPM 08/20/20 11/14/20 History mcg (5,000 unit) capsule pantoprazole 20 mg tablet,delayed 20 mg PO QAM 08/20/20 11/14/20 History release prednisone 1 mg tablet 2 mg PO QAM tab 08/20/20 11/14/20 History acetaminophen [Tylenol] 650 mg PO Q8H PRN MDD 3 GRAMS/24 09/13/20 11/14/20 History HOURS calcium carbonate [Tums 500] 500 mg PO DAILY PRN 09/13/20 11/14/20 History lisinopril 10 mg PO BID 09/13/20 11/14/20 History metoprolol succinate 50 mg PO Q12H 09/13/20 11/14/20 History multivitamin with minerals 1 tab PO QAM 09/13/20 11/14/20 History omega-3 fatty acids-fish oil 1 cap PO QPM 09/13/20 11/14/20 History [[place] 3 Fish Oil] prednisone 5 mg PO QAM 09/13/20 11/14/20 History sennosides-docusate sodium 1 tab-cap PO BID 09/13/20 11/14/20 History [Sennalax-S] Saccharomyces boulardii [Florastor] 250 mg PO QAM 10/15/20 11/14/20 History amitriptyline 10 mg PO HS 10/15/20 11/14/20 History budesonide-formoterol [Symbicort] 2 puff INHALATION BID17 10/15/20 11/14/20 History carboxymethylcellulose sodium 1 drp OPB DAILY PRN 10/15/20 11/14/20 History [Artificial Tears ([facility]c)] tramadol 50 mg PO Q8H PRN 10/15/20 11/14/20 History hydrocodone 5 mg-acetaminophen 325 0.5 tab PO Q6H PRN #60 tab 11/11/20 11/14/20 Rx mg tablet docusate sodium 100 mg PO QAM PRN 11/14/20 11/14/20 History oxycodone 5 mg tablet 5 mg PO Q4H PRN #120 tab 11/14/20 Rx Patient History Medical History (Updated 11/14/20 @ 16:06 by Prudencio Frederick MD) Acute diverticulitis Asthma Atopic dermatitis Bronchitis CAD (coronary artery disease) Diverticula of colon Duodenal ulcer Eczema Facial nerve palsy HAPPENED AT AGE 17> RIGHT SIDE High risk medication use 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 Stroke like symptoms. History of intestinal obstruction HTN (hypertension) Hx of lower gastrointestinal bleeding 2019-RESOLVED Incisional hernia without obstruction or gangrene Intraoperative ureteral injury PT DENIES Long-term use of hydroxychloroquine Multiple pulmonary nodules DUE TO RA Osteoporosis Peptic ulcer disease Seropositive rheumatoid arthritis Sjogrens syndrome SOB (shortness of breath) on exertion Ventricular tachycardia Surgical History History of colonoscopy History of colostomy History of colostomy reversal ETT#7, Glidescope #3, Grade 1 View - attempt x 1, atraumatic History of esophagogastroduodenoscopy (EGD) History of facial surgery History of partial colectomy History of tonsillectomy and adenoidectomy History of total knee arthroplasty RIGHT Hx of right heart catheterization 2018 [facility] > NO STENTS Status post right foot surgery 2012 AT [facility] Ventral hernia with bowel obstruction Family History Mother Asthma Heart disease Renal failure Brother Heart disease Father Pneumonia Other History of section Ventral hernia with bowel obstruction Social History Smoking Status: Former smoker Years Smoked: 2; Second Hand Exposure: No; Do You Dip or Chew Tobacco: No; Tobacco Cessation Education Requested by Patient: No Hx Alcohol Use: No Hx Substance Use: No Preferred Language: Armenian Communication Ability: Effective Visual Impairment: No Limitations [employer]acing Supervisor Required: No Beliefs That Will Affect Care: None marital status: / Current Living Situation: Personal Care Facility current occupational status: retired Other Information That Helps Us Care for You: No Feels Safe at Home: Yes Safety Concerns: Feels Safe At This Time Seatbelt Use: always Assistive Devices: Wheelchair Physical Exam Physical Exam: Gen.: No acute distress. Alert and oriented. HEENT: Anicteric sclera. Neck: No JVD. No bruits. Normal carotid upstrokes bilaterally. Cardiac: PMI was nondisplaced. No ventricular heave. Irregularly irregular. Normal S1-S2. No murmurs, rubs, or gallops. Pulmonary: Clear to auscultation bilaterally without wheezes, rales, or rhonchi. Abdomen: Soft, nontender, nondistended, with normoactive bowel sounds. No bruits noted. Extremities: 2+ radial pulses bilaterally. 2+ posterior tibialis pulses bilaterally. Trace to 1+ bilateral lower extremity edema. No cyanosis. Psychiatric: Affect appears appropriate. Results & Data ([facility]) Vital Signs (Past 12 Hours) Vital Signs Temp Pulse Resp BP Pulse Ox 11/14/20 15:10 87 22 148/81 H 95 11/14/20 15:00 91 H 19 157/82 H 91 11/14/20 14:50 86 20 152/82 H 98 11/14/20 14:40 84 21 148/74 H 98 11/14/20 14:30 124 H 24 133/72 97 11/14/20 14:20 129 H 19 116/74 98 11/14/20 14:10 129 H 20 128/83 90 11/14/20 14:00 115 H 20 122/79 97 11/14/20 13:50 123 H 22 123/84 98 11/14/20 13:40 120 H 20 136/65 98 11/14/20 13:30 89 22 136/75 98 11/14/20 13:28 133 H 133/98 11/14/20 13:21 127 H 20 133/98 98 11/14/20 13:17 113 H 19 119/81 97 11/14/20 13:00 119 H 19 103/74 96 11/14/20 12:30 102 H 19 161/98 H 94 11/14/20 12:00 88 20 163/81 H 98 11/14/20 11:30 101 H 18 160/71 H 96 11/14/20 11:00 95 H 24 161/90 H 95 11/14/20 10:30 99 H 22 153/81 H 93 11/14/20 10:00 99 H 20 154/87 H 93 11/14/20 09:30 90 24 148/71 H 94 11/14/20 09:00 91 H 18 163/95 H 96 11/14/20 08:50 98 11/14/20 08:34 98 H 24 174/105 H 98 11/14/20 08:33 37.7 C H 98 H 19 174/105 H 98 Laboratory Results Laboratory Results - last 24 hr 11/14/20 11/14/20 11/14/20 08:45 08:45 08:45 WBC 16.16 H RBC 3.54 L Hgb 9.6 L Hct 29.9 L MCV 84.5 MCH 27.1 MCHC 32.1 RDW Std Deviation 45.8 RDW Coeff of Chauncey 14.8 H Plt Count 521 H MPV 8.9 Immature Gran % (Auto) 0.7 Neut % (Auto) 84.9 Lymph % (Auto) 7.9 [place] % (Auto) 4.8 Eos % (Auto) 1.5 Baso % (Auto) 0.2 Neut # (Auto) 13.72 H Lymph # (Auto) 1.27 [place] # (Auto) 0.77 H Eos # (Auto) 0.24 Baso # (Auto) 0.04 Immature Gran # (Auto) 0.12 H Sodium 130 L Potassium 3.8 Chloride 95 L Carbon Dioxide 27 Anion Gap 7.0 BUN 8 Creatinine 0.34 L Est Cr Clr Drug Dosing 102.6 Est GFR ( Amer) 119.4 Est GFR (Non-Af Amer) 103.0 BUN/Creatinine Ratio 24.2 H Glucose 88 Calcium 8.7 Phosphorus Magnesium 1.7 L Total Bilirubin 0.4 AST 15 ALT 15 Alkaline Phosphatase 88 Troponin I < 0.015 Total Protein 6.3 L Albumin 2.3 L Globulin 4.0 Albumin/Globulin Ratio 0.6 L Lipase 57 L Procalcitonin Random Cortisol Urine Color Urine Appearance Urine pH Ur Specific [place] Urine Protein Urine Glucose (UA) Urine Ketones Urine Blood Urine Nitrite Urine Bilirubin Urine Urobilinogen Ur Leukocyte Esterase Urine WBC (Auto) Urine RBC (Auto) U Hyaline Cast (Auto) U Epithel Cells (Auto) Urine Bacteria (Auto) COVID-19 Eval Order SARS-CoV-2 (PCR) 11/14/20 11/14/20 11/14/20 11:30 11:50 12:45 WBC RBC Hgb Hct MCV MCH MCHC RDW Std Deviation RDW Coeff of Chauncey Plt Count MPV Immature Gran % (Auto) Neut % (Auto) Lymph % (Auto) [place] % (Auto) Eos % (Auto) Baso % (Auto) Neut # (Auto) Lymph # (Auto) [place] # (Auto) Eos # (Auto) Baso # (Auto) Immature Gran # (Auto) Sodium Potassium Chloride Carbon Dioxide Anion Gap BUN Creatinine Est Cr Clr Drug Dosing Est GFR ( Amer) Est GFR (Non-Af Amer) BUN/Creatinine Ratio Glucose Calcium Phosphorus Magnesium Total Bilirubin AST ALT Alkaline Phosphatase Troponin I < 0.015 Total Protein Albumin Globulin Albumin/Globulin Ratio Lipase Procalcitonin Random Cortisol Urine Color Yellow Urine Appearance Clear Urine pH 8.0 H Ur Specific [place] 1.008 Urine Protein Negative Urine Glucose (UA) Negative Urine Ketones Negative Urine Blood Negative Urine Nitrite Positive A Urine Bilirubin Negative Urine Urobilinogen Negative Ur Leukocyte Esterase 1+ H Urine WBC (Auto) 10-30 H Urine RBC (Auto) 0-4 U Hyaline Cast (Auto) 1-5 U Epithel Cells (Auto) 10-20 H Urine Bacteria (Auto) Negative COVID-19 Eval Order Covid19 at [facility] SARS-CoV-2 (PCR) 11/14/20 11/14/20 11/14/20 12:45 16:23 17:30 WBC RBC Hgb Hct MCV MCH MCHC RDW Std Deviation RDW Coeff of Chauncey Plt Count MPV Immature Gran % (Auto) Neut % (Auto) Lymph % (Auto) [place] % (Auto) Eos % (Auto) Baso % (Auto) Neut # (Auto) Lymph # (Auto) [place] # (Auto) Eos # (Auto) Baso # (Auto) Immature Gran # (Auto) Sodium Potassium Chloride Carbon Dioxide Anion Gap BUN Creatinine Est Cr Clr Drug Dosing Est GFR ( Amer) Est GFR (Non-Af Amer) BUN/Creatinine Ratio Glucose Calcium Phosphorus Magnesium Total Bilirubin AST ALT Alkaline Phosphatase Troponin I < 0.015 Total Protein Albumin Globulin Albumin/Globulin Ratio Lipase Procalcitonin 0.05 Random Cortisol Urine Color Urine Appearance Urine pH Ur Specific [place] Urine Protein Urine Glucose (UA) Urine Ketones Urine Blood Urine Nitrite Urine Bilirubin Urine Urobilinogen Ur Leukocyte Esterase Urine WBC (Auto) Urine RBC (Auto) U Hyaline Cast (Auto) U Epithel Cells (Auto) Urine Bacteria (Auto) COVID-19 Eval Order SARS-CoV-2 (PCR) NEGATIVE 11/14/20 11/14/20 11/14/20 17:30 17:30 17:30 WBC 16.55 H RBC 3.58 L Hgb 9.6 L Hct 30.6 L MCV 85.5 MCH 26.8 MCHC 31.4 L RDW Std Deviation 46.8 H RDW Coeff of Chauncey 14.8 H Plt Count 484 H MPV 8.6 Immature Gran % (Auto) 0.4 Neut % (Auto) 88.6 Lymph % (Auto) 5.6 [place] % (Auto) 4.5 Eos % (Auto) 0.7 Baso % (Auto) 0.2 Neut # (Auto) 14.66 H Lymph # (Auto) 0.92 L [place] # (Auto) 0.75 H Eos # (Auto) 0.12 Baso # (Auto) 0.03 Immature Gran # (Auto) 0.07 H Sodium 128 L Potassium 4.0 Chloride 95 L Carbon Dioxide 28 Anion Gap 5.0 BUN 8 Creatinine 0.34 L Est Cr Clr Drug Dosing 102.6 Est GFR ( Amer) 119.4 Est GFR (Non-Af Amer) 103.0 BUN/Creatinine Ratio 23.2 H Glucose 79 Calcium 8.6 Phosphorus 2.9 Magnesium 1.9 Total Bilirubin 0.4 AST 12 L ALT 13 Alkaline Phosphatase 85 Troponin I Total Protein 6.1 L Albumin 2.2 L Globulin 3.9 Albumin/Globulin Ratio 0.6 L Lipase Procalcitonin Random Cortisol 20.92 Urine Color Urine Appearance Urine pH Ur Specific [place] Urine Protein Urine Glucose (UA) Urine Ketones Urine Blood Urine Nitrite Urine Bilirubin Urine Urobilinogen Ur Leukocyte Esterase Urine WBC (Auto) Urine RBC (Auto) U Hyaline Cast (Auto) U Epithel Cells (Auto) Urine Bacteria (Auto) COVID-19 Eval Order SARS-CoV-2 (PCR) Diagnostic Findings ECGs personally reviewed: ECG 11/14/2020 8:33 a.m.: Sinus rhythm with PACs 93 beats per minute. LVH. ECG 11/14/2020 at 11:08 a.m.: Sinus rhythm with PACs and PVCs versus aberrantly conducted PACs. 102 beats per minute. LVH. ECG 11/14/2020 at 1:03 p.m.: Wide complex tachycardia 134 beats per minute. LBBB morphology, similar to that of PVCs. Telemetry personally reviewed as noted above in HPI with wide complex tachycardia. Chest x-ray 11/14/2020: Interval improvement of trace bilateral pleural effusions and bibasilar densities. Emphysema. Prior cardiac catheterization report reviewed as summarized in HPI. Medications Administered Current Inpatient Medications Acetaminophen (Acetaminophen 325 Mg Tab) 650 mg PO Q8H PRN PRN Reason: Pain Stop: 12/14/20 15:44 Hydrocodone Bitart/Acetaminophen (Hydrocodone/Acetamophen 5/325mg Tab) 0.5 tab PO Q6H PRN PRN Reason: pain 6-10 Stop: 11/28/20 15:44 Amitriptyline HCl (Amitriptyline Hcl 10 Mg Tab) 10 mg PO HS HOWIE Stop: 12/14/20 20:59 Artificial Tears (Artificial Tears) 1 drops OP DAILY PRN PRN Reason: Dry Eyes Stop: 12/14/20 16:08 Calcium Carbonate (Calcium Carbonate 500 Mg Chewable Tab) 500 mg PO DAILY PRN PRN Reason: Indigestion Stop: 12/14/20 15:44 Docusate Sodium (Docusate Sodium 100 Mg Cap) 100 mg PO QAM PRN PRN Reason: Constipation Stop: 12/14/20 15:44 Enoxaparin Sodium (Enoxaparin Inj 40 Mg/0.4 Ml Syr) 40 mg SQ Q24H HOWIE Stop: 12/14/20 16:59 Last Admin: 11/14/20 17:23 Dose: 40 mg Documented by: Fluticasone/Vilanterol (Fluticasone/Vilanterol 200/25mcg 14 Puffs/Inhaler) 1 puffs INH DAILY HOWIE Stop: 12/15/20 08:59 Doxycycline Hyclate 100 mg/ (Dextrose) 110 mls @ 50 mls/hr IV Q12 HOWIE; Protocol Stop: 11/21/20 15:59 Last Infusion: 11/14/20 18:02 Dose: Infused Documented by: Ceftriaxone Sodium 1,000 mg/ (Dextrose) 50 mls @ 100 mls/hr IV DAILY HOWIE; Protocol Stop: 11/19/20 08:59 Amiodarone HCl/Dextrose (Nexterone / D5w) 360 mg in 200 mls @ 33.333 mls/hr IV ONE ONE; Protocol Stop: 11/14/20 22:35 Last Admin: 11/14/20 17:14 Dose: 1 mg/min, 33.3 mls/hr Documented by: Amiodarone HCl/Dextrose (Nexterone / D5w) 360 mg in 200 mls @ 16.667 mls/hr IV .Q12H HOWIE Stop: 11/15/20 16:35 Magnesium Sulfate/Dextrose (Magnesium Sulfate / D5w) 1 gm in 100 mls @ 50 mls/hr IV ONE ONE Stop: 11/14/20 20:21 Last Admin: 11/14/20 18:35 Dose: 50 mls/hr Documented by: Lisinopril (Lisinopril 10 Mg Tab) 10 mg PO BID HOWIE Stop: 12/14/20 20:59 Metoprolol Succinate (Metoprolol Succ 50mg Ext Rel Tab) 50 mg PO Q12 HOWIE Stop: 12/14/20 20:59 Miscellaneous (Icu Protocol For Hyperglycemia) 1 ea N/A PRN PRN; Protocol PRN Reason: Hyperglycemia Protocol Stop: 11/16/20 15:44 Nitroglycerin (Nitroglycerin Sl 0.4 Mg/Tab Tab) 0.4 mg SL UD PRN PRN Reason: Chest Pain Stop: 12/14/20 15:44 Oxycodone/Acetaminophen (Oxycodone/Acetaminophen 5mg/325mg Tab) 1 tab PO Q4H PRN PRN Reason: Pain Stop: 11/28/20 17:33 Last Admin: 11/14/20 17:46 Dose: 1 tab Documented by: Pantoprazole Sodium (Pantoprazole 40 Mg Tab) 40 mg PO QAM [facility] Stop: 12/15/20 08:59 Prednisone (Prednisone 5 Mg Tab) 5 mg PO QAM [facility] Stop: 12/15/20 08:59 Prednisone (Prednisone 1 Mg Tab) 2 mg PO QAM [facility] Stop: 12/15/20 08:59 Saccharomyces Boulardii (Saccharomyces Boulardii 250 Mg Cap) 250 mg PO QAM [facility] Stop: 12/15/20 08:59 Senna/Docusate Sodium (Docusate Sodium/Senna 50/8.6mg Tab) 1 tab PO BID@1400,2100 [facility] Stop: 12/14/20 20:59 Vitamin D (Cholecalciferol 1,000 Units 25 Mcg Tab) 5,000 units PO DAILY@1400 [facility] Stop: 12/15/20 13:59 PG Care Time/CCT Total # of Minutes Spent Total Time Spent with Patient: Total time spent is greater than 50% in coordination of care (as documented) at patient's floor/unit and/or counseling patient: Critical Care Time: Yes Total Critical Care Time: 50 Coding Level of Care Code None Diagnoses Ventricular tachycardia I47.2 Wide-complex tachycardia I47.2 Chest pain R07.9 Chest pain type: unspecified Cardiomyopathy I42.9 CAD (coronary artery disease) I25.10 Additional Codes Critical Care Time - Critical Care Time: Yes ([id number]) Time Spent (min) 50 Comment critical care time (1) Chest pain Chest pain type: unspecified Qualified Code(s): R07.9 - Chest pain, unspecified
[2020-11-14] MEDS ORDERED: ARTIFICIAL TEARS OP PRN (16:09)
[2020-11-14] MEDS: DOXYCYCLINE HYCLATE 100 MG in DEXTROSE 5% 100 ML IV SCH (16:28)
[2020-11-14] MEDS ORDERED: AMIODARONE / D5W 360 MG/200 ML BAG IV ONE (16:36)
[2020-11-14] MEDS: ENOXAPARIN INJ 40 MG/0.4 ML SYR SQ SCH (17:23)
[2020-11-14] MEDS: oxyCODONE/ACETAMINOPHEN 5mg/325mg TAB PO PRN ×2 (17:46→21:28)
[2020-11-14 17:47] LABS: Basophils # (auto) 0.03 K/uL (0-0.2); Basophils % (auto) 0.2 %; Eosinophils # (auto) 0.12 K/uL (0-0.5); Eosinophils % (auto) 0.7 %; Hematocrit (blood only) 30.6 % (37-47); Hemoglobin 9.6 g/dL (12.0-16.0); Immature Granulocytes # (auto) 0.07 K/uL (0.00-0.02); Immature Granulocytes % (auto) 0.4 %; Lymphocytes # (auto) 0.92 K/uL (1.2-3.4); Lymphocytes % (auto) 5.6 %; Mean Corpuscular Hemoglobin 26.8 pg (25-34); Mean Corpuscular Hgb Conc 31.4 g/dL (32-36); Mean Corpuscular Volume 85.5 fL (80-100); Mean Platelet Volume 8.6 fL (7.4-10.4); Monocytes # (auto) 0.75 K/uL (0.11-0.59); Monocytes % (auto) 4.5 %; Neutrophils # (auto) 14.66 K/uL (1.4-6.5); Neutrophils % (auto) 88.6 %; Platelet Count 484 K/uL (130-400); RDW Coefficient of Variation 14.8 % (11.5-14.5); RDW Standard Deviation 46.8 fL (36.4-46.3); Red Blood Count 3.58 M/uL (4.2-5.4); White Blood Count 16.55 K/uL (4.8-10.8)
[2020-11-14 18:12] LABS: Albumin Level 2.2 gm/dl (3.4-5.0); BUN Creatinine Ratio 23.2 (10-20); Calcium 8.6 mg/dl (8.5-10.1); Creatinine Clr Calc Pharmacy 102.6 ml/min; Est GFR (African American) 119.4 ml/min; Magnesium 1.9 mg/dl (1.8-2.4)
[2020-11-14 18:14] LABS: Albumin Globulin Ratio 0.6 (0.9-2); Bilirubin,Total 0.4 mg/dl (0.2-1); Globulin 3.9 gm/dl (2.5-4.0); Phosphorus 2.9 mg/dl (2.5-4.9); Total Protein 6.1 gm/dl (6.4-8.2)
--- NOTE | 2020-11-14 18:21 | Billing Data ---
Date of Service November 14, 2020 Coding Level of Care Code Critical Care 1st 30-74 mins Time Spent (min) 55
[2020-11-14] MEDS ORDERED: MAGNESIUM SULFATE / D5W 1 GM/100 ML BAG IV ONE (18:22)
[2020-11-14] MEDS ORDERED: CALCIUM GLUCONATE 10% 2,000 MG in SODIUM CHLORIDE 0.9% 50 ML IV ONE (18:30)
[2020-11-14] MEDS: AMITRIPTYLINE HCL 10 MG TAB PO SCH (19:40)
[2020-11-14] MEDS: lisinopril 10 MG TAB PO SCH (19:40)
[2020-11-14] MEDS: DOCUSATE SODIUM/SENNA 50/8.6MG TAB PO SCH (19:41)
[2020-11-14] MEDS: METOPROLOL SUCC 50MG EXT REL TAB PO SCH (19:41)
[2020-11-14] MEDS: AMIODARONE / D5W 360 MG/200 ML BAG IV SCH (22:15)
[2020-11-15] MEDS: oxyCODONE/ACETAMINOPHEN 5mg/325mg TAB PO PRN ×3 (02:07→15:52)
[2020-11-15 05:01] LABS: Basophils # (auto) 0.05 K/uL (0-0.2); Basophils % (auto) 0.3 %; Eosinophils # (auto) 0.43 K/uL (0-0.5); Eosinophils % (auto) 2.7 %; Hematocrit (blood only) 29.4 % (37-47); Hemoglobin 9.2 g/dL (12.0-16.0); Immature Granulocytes # (auto) 0.08 K/uL (0.00-0.02); Immature Granulocytes % (auto) 0.5 %; Lymphocytes # (auto) 1.01 K/uL (1.2-3.4); Lymphocytes % (auto) 6.4 %; Mean Corpuscular Hemoglobin 26.7 pg (25-34); Mean Corpuscular Hgb Conc 31.3 g/dL (32-36); Mean Corpuscular Volume 85.2 fL (80-100); Mean Platelet Volume 9.1 fL (7.4-10.4); Monocytes # (auto) 0.91 K/uL (0.11-0.59); Monocytes % (auto) 5.7 %; Neutrophils # (auto) 13.36 K/uL (1.4-6.5); Neutrophils % (auto) 84.4 %; Platelet Count 475 K/uL (130-400); Red Blood Count 3.45 M/uL (4.2-5.4); White Blood Count 15.84 K/uL (4.8-10.8)
[2020-11-15 05:30] LABS: BUN Creatinine Ratio 29.5 (10-20); Calcium 8.5 mg/dl (8.5-10.1); Creatinine Clr Calc Pharmacy 105.7 ml/min; Est GFR (African American) 120.6 ml/min; Est GFR (Non-African American) 104.1 ml/min; Potassium 3.5 mmol/L (3.5-5.1)
[2020-11-15 05:43] LABS: Phosphorus 3.8 mg/dl (2.5-4.9)
--- NOTE | 2020-11-15 05:52 | Electrocardiogram Report ---
Test Reason : Blood Pressure : / mmHG Vent. Rate : 093 BPM Atrial Rate : 093 BPM P-R Int : 152 ms QRS Dur : 100 ms QT Int : 382 ms P-R-T Axes : 074 009 022 degrees QTc Int : 474 ms Sinus rhythm Premature atrial complexes Minimal voltage criteria for LVH, may be normal variant Borderline ECG When compared with ECG of 15-OCT-2020 22:33, Vent. rate has increased BY 32 BPM Nonspecific T wave abnormality now evident in Inferior leads Confirmed by Prudencio Frederick ([id number]) on 11/15/2020 5:51:44 AM Referred By: [facility] Confirmed By:Prudencio Frederick
--- NOTE | 2020-11-15 06:01 | Electrocardiogram Report ---
Test Reason : Blood Pressure : / mmHG Vent. Rate : 102 BPM Atrial Rate : 102 BPM P-R Int : 148 ms QRS Dur : 096 ms QT Int : 384 ms P-R-T Axes : 069 020 061 degrees QTc Int : 500 ms Sinus tachycardia with Premature ventricular complexes or Fusion complexes Premature atrial complexes Minimal voltage criteria for LVH, may be normal variant Borderline ECG When compared with ECG of 14-NOV-2020 08:33, Fusion complexes are now Present Premature ventricular complexes are now Present Confirmed by Prudencio Frederick ([id number]) on 11/15/2020 6:01:41 AM Referred By: [facility] Confirmed By:Prudencio Frederick
--- NOTE | 2020-11-15 06:07 | Electrocardiogram Report ---
Test Reason : Blood Pressure : / mmHG Vent. Rate : 134 BPM Atrial Rate : 127 BPM P-R Int : 000 ms QRS Dur : 160 ms QT Int : 382 ms P-R-T Axes : 000 -50 118 degrees QTc Int : 570 ms Wide complex tachycardia Left axis deviation Left bundle branch block Abnormal ECG When compared with ECG of 14-NOV-2020 11:08, Wide QRS tachycardia has replaced Sinus rhythm Left bundle branch block is now Present Confirmed by Prudencio Frederick ([id number]) on 11/15/2020 6:07:42 AM Referred By: [facility] Confirmed By:Prudencio Frederick
[2020-11-15] MEDS ORDERED: AMIODARONE / D5W 150 MG/100 ML BAG IV STA (07:03)
[2020-11-15] MEDS ORDERED: METOPROLOL TARTRATE 1 MG/ML VIAL IV ONE (07:03)
[2020-11-15] MEDS ORDERED: 0.2 MICRON FILTER SET 1 EA IV ONE (07:03)
[2020-11-15] MEDS ORDERED: AMIODARONE 150MG / 100ML D5W IV ONE (07:04)
[2020-11-15] MEDS ORDERED: METOPROLOL TARTRATE 1 MG/ML VIAL IV STA ×2 (07:44→07:56)
[2020-11-15] MEDS ORDERED: LIDOCAINE 2% 20 MG/ML 5 ML SYR IV STA (08:02)
[2020-11-15] MEDS: POTASSIUM CHLORIDE / WTR 10 MEQ/100 ML PLCT IV SCH ×3 (08:06→10:07)
--- NOTE | 2020-11-15 08:07 | Critical Care Progress Note ---
Date of Service November 15, 2020 Assessment & Plan (1) Ventricular tachycardia: REASON CRITICALLY ILL: This is an 80-year-old female with a notable history of hypertension, COPD, rheumatoid arthritis, recent hospitalization for L pubic rami fracture, anemia, heart failure with reduced ejection fraction who presented to [facility] for evaluation of intermittent chest pain at her nursing facility; in the ER, she was found to be hemodynamically stable, but began having intermittent bouts of non-sustained VT, followed by sustained VT without hemodynamic alteration. In the ED, she was given amio bolus x 2 and subsequently started on a drip. She had nonsustained runs of VT in the evening of 11/14, and beginning at 0700 on 11/15, again developed sustained VT. She remains hem odynamically stable. Neuro - Sedation: None. Analgesia: Tylenol. Percocet. 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 Cardiac - Wide Complex Tachyarrhythmia -- appreciate cardiology input * Few short runs of fibrillatory vs. PVC vs. NSVT observed last night on amio gtt * This AM, approx. 0700, did go into wide complex tachyarrhythmia initially c/f sustained VT w/ pulse -- completely hemodynamically patricio through this episode, mild chest atypia but no pain --> received amio bolus x 2, lopressor x 2 without initially success, then bolused with lidocaine x 1 * Per cardiology and on review of ECG, likely more suggestive of atrial fibrillation with aberrancy - Anticoagulation considered. Will continue to monitor for now and will revisit once persistently demonstrating stable rhythm * Now demonstrating NSR. * Continue amiodarone 0.5mg/min throughout today * Anticipate switching to oral formation tomorrow (start 400mg b.i.d., then can be switched to 200mg daily eventually) * Stop succinate during hospitalization, begin metoprolol tartrate for easier titration pre cardiology * Per numerous discussions previously during this course, patient is DNR/DNI, but is amenable to cardioversion if needed * Maintain: Mg > 2, Phos > 3, K > 4 * Await echo Chest Pain * Based on prior reports, pain seems to be relatable to her wide complex tachyarrhythmia and improved with rate control * ECG without acute ST-T abnormalities on arrival, during early course in ER * Troponin negative x 3 -- unlikely ischemic heart, especially with low-risk cath in 2018 Nonischemic HFrEF * 07/2020 echo demonstrating LVEF 40% * Continue home medications - metoprolol and lisinopril for now * Not on ASA sec to GIB back in time * Echo as above Respiratory - History of COPD * No supplemental oxygen requirement. Respiratory status stable. * Continue home inhalers GI - * No special needs at this time. * h/o complex bowel surgery in past, c/b ventral hernias and SBOs requiring hospitalization (as recently as 07/2020) noted * Heart healthy diet RENAL/LYTES * K repleted this AM * Replace lytes as needed. * Maintain: Mg > 2, Phos > 3, K > 4 - * No special concerns at this time ENDO / RHEUM: History of RA * Noted, on chronic prednisone therapy and HCQ * Continue prednisone therapy * Hold HCQ for now HEME - * Iron-deficiency anemia, chronic, noted at 9.6 - consistent with previous numbers * Will continue to monitor while here * Can consider iron supplementation when consistently demonstrating stability * H/O GIB noted ID - * Temperatures stable. * Persistent, but improved, leukocytosis with PMN predominance noted -- suspect component from UTI, but more likely demargination from chronic steroids * CXR demonstrating haziness in RLL, likely atelectic. Procal negative. No symptoms at present. Lower suspicion for respiratory infection. D/C doxy. UTI * Positive nitrites and LE with WBCs in setting of epis noted, mild pain * Will continue CFTX INTEGUMENTARY - * No acute concerns LINES/IV ACCESS - PIVs intact. DVT PROPHYLAXIS - pLov Thank you for allowing us to be part of this patient's care. Please refer to Dr. Garcia's documentation for any further recommendations. (2) CAD (coronary artery disease): (3) Chest pain: (4) Acute UTI: (5) Wide-complex tachycardia: (6) Neck pain: (7) GERD (gastroesophageal reflux disease): (8) Hypomagnesemia: (9) Hx of right heart catheterization: (10) Multiple pulmonary nodules: (11) Long-term use of hydroxychloroquine: (12) Insomnia: (13) Hypertension: (14) Chronic obstructive asthma: (15) Cardiomyopathy: (16) Generalized osteoarthritis of multiple sites: (17) Abdominal hernia: Admission and Anticipated Discharge Date Admission Date: November 14, 2020 Supervising Physician Co-Signing Physician Notes Dr. Santamaria was the resident-physician during care of patient. I separately evaluated patient for mckeon portions of the history and the exam. I was present during the critical portion of medical decision making, and I discussed the case with the resident. I generally agree with the findings and plan except for any additions/exceptions noted. Patient seen and examined at bedside. No acute distress. Overnight patient again went into V. tach. She was given another bolus of amiodarone 150 mg She denies any shortness of breath does complain of some chest discomfort. No nausea or vomiting. Does complain of pain in the pelvic area. She did have urinary retention overnight and has a Minaya cath Constitutional: No acute distress HEENT: EOMI, PERRLA, mediastinal isthmus right eye, right-sided facial droop(chronic) Respiratory system: Decreased air entry bilaterally, no wheeze, no rhonchi, mild crackles bilateral lower lobes CVS: S1-S2 positive, no murmurs or gallops Abdomen: Soft, nontender, nondistended, positive bowel sounds x4 Extremities: +2 pulses bilaterally radialis/ dorsalis pedis, no cyanosis, no edema Neuro: Awake alert oriented x3 Psych: Normal mood and affect G/U: Positive Minaya Plan: In/out: +398, urine output 900 Prolonged QTC we are trying to avoid any QT prolonging medication. Amiodarone although it prolonged QT is necessary in her case. I did give the patient 75 mg of lidocaine as patient was still having similar rhythm. It did eventually break her into sinus rhythm. Case was discussed with Dr. Liu who thinks that patient likely has underlying AV dissociation leading to A. fib with aberrancy rather than true V. tach. Patient does have nonsustained V. tach beats in the middle. No intervention from cardiology perspective. Plan is to continue with amiodarone drip. Keep potassium greater than 4, magnesium greater than 2, phosphorus greater than 3. Cortisol level was 20 which is within normal limits. I have personally spent 35 minutes of critical care time in the direct management of this patient. This is a life/limb threatening event. This i ncludes time spent evaluating patient, direct bedside care, chart review, placing orders, interpretation of diagnostic studies, discussion with consultants, patient, and/or family members regarding treatment decisions, as well as other required patient management activities. This time is exclusive of all separately billable procedures, and teaching time and separate from and in addition to any other critical care service time. Subjective Bouts of ectopy vs. NSVT throughout the night. Beginning around 0700 did go into what appeared to be sustained VT vs., after consulting with cardiology, more possibly atrial fibrillation with aberrancy. Hemodynamically stable throughout that time - BPs ~130/70, normal saturation on RA. Some central chest atypia, but not what she describes as pain or pressure. No shortness of breath. No lightheadedness. No nausea. Received amio bolus x 1, followed by lopressor x 1, and the same of both again. Was also given lidocaine x 1. Review of Systems Review of Systems: As per HPI Physical Exam Physical Exam: General: 80-year-old frail-appearing female who is tired appearing, lying back in her bed. She is easily arousable and fully alert and responsive to questioning. HEENT: NCAT. Eyes - Sclera are white, anicteric, and without injection. R eye more towards midline than L throughout our conversation. Cardiac: Normal rate and regular rhythm following conversion; S1 and S2 present with no murmurs, rubs, or gallops. No appreciable JVD. Pulmonary: Good respiratory effort with symmetric expansion of the chest. No use of accessory muscles. Lungs were clear to auscultation bilaterally without significant crackles or wheezes. Abdominal: Normoactive bowel sounds. Abdomen was appreciable for two chronic, bilateral ventral hernias, and was soft, nondistended, and non-tender to palpation. Neuro: Right facial droop with inability to abduct past midline on R eye. Diminished strength throughout otherwise Extremities: Upper and lower extremities are warm and well perfused. There is 1+ pitting edema in the LEs bilaterally. Capillary refill assessed in UE was < 3 sec. Results & Data Results & Data ([facility]) Vital Signs (Past 12 Hours) Vital Signs Temp Pulse Resp BP Pulse Ox 11/15/20 06:06 79 17 146/70 H 94 11/15/20 05:06 75 14 155/59 H 94 11/15/20 04:00 37 C 76 16 146/64 H 93 11/15/20 03:07 80 23 178/81 H 95 11/15/20 02:06 75 27 H 170/71 H 96 11/15/20 01:06 72 25 H 162/76 H 92 11/15/20 00:06 72 20 157/63 H 93 11/14/20 23:06 70 18 149/74 H 89 L 11/14/20 22:49 72 11/14/20 22:06 36.5 C 69 16 144/69 H 98 11/14/20 21:06 70 20 150/74 H 92 11/14/20 20:06 36.7 C 81 22 142/74 H 94 11/15/20 04:21 11/15/20 04:21 Resident Activity Tracking Resident Involvement: Resident Care Provided Care Provided: Adult Hospital Medicine (1) Chest pain Chest pain type: unspecified Qualified Code(s): R07.9 - Chest pain, unspecified (2) Abdominal hernia Hernia type: other abdominal hernia Obstruction and gangrene presence: with obstruction but without gangrene Qualified Code(s): K45.0 - Other specified abdominal hernia with obstruction, without gangrene
[2020-11-15] MEDS: SACCHAROMYCES BOULARDII 250 MG CAP PO SCH (08:10)
[2020-11-15] MEDS: METOPROLOL SUCC 50MG EXT REL TAB PO SCH (08:10)
[2020-11-15] MEDS: predniSONE 5 MG TAB PO SCH (08:10)
[2020-11-15] MEDS: FLUTICASONE/VILANTEROL 200/25MCG 14 PUFFS/INHALER INH SCH (08:10)
[2020-11-15] MEDS: predniSONE 1 MG TAB PO SCH (08:11)
[2020-11-15] MEDS: lisinopril 10 MG TAB PO SCH ×2 (08:11→21:06)
[2020-11-15] MEDS: PANTOprazole 40 MG TAB PO SCH (08:11)
[2020-11-15] MEDS: DOXYCYCLINE HYCLATE 100 MG in DEXTROSE 5% 100 ML IV SCH (08:13)
[2020-11-15] MEDS ORDERED: cefTRIAXone SODIUM 1,000 MG in DEXTROSE 5% 50 ML IV SCH (09:00)
--- NOTE | 2020-11-15 10:06 | Cardiology Progress Note ---
Date of Service November 15, 2020 Assessment & Plan (1) Ventricular tachycardia: (2) Wide-complex tachycardia: (3) Chest pain: (4) Cardiomyopathy: (5) CAD (coronary artery disease): ASSESSMENT/PLAN: 1. Wide complex tachycardia: she has a long history left bundle branch block aberrancy. Review of her EKGs also reveals 1 episode with a right bundle branch block morphology as well. I think the more likely etiology of her arrhythmia is atrial fibrillation with aberrancy. A review of her telemetry suggests that there does appear to be aberrant beats with clearly a sinus or ectopic atrial mechanism. These are conducted with the same morphology as her rapid and irregular wide complex rhythm. Her wide complex rhythm is notably irregular. While she does have a history of a nonischemic cardiomyopathy and certainly could be at risk for ventricular tachycardia, I think she is much more likely to have atrial fibrillation. She was not symptomatic with today's episode. The overall heart rate was relatively low although difficult to gauge given the irregular nature. I would continue her amiodarone infusion today and start her on an oral regimen tomorrow. I would start her on 400 mg twice daily which can eventually be reduced to 200 mg daily. I will also switch her metoprolol succinate to metoprolol tartrate during hospitalization to facilitate more rapid titration and overall better rate control. We may see more obvious episodes of atrial fibrillation with a narrow complex once her rate is better controlled. In that setting we can be more confident about a discussion regarding anticoagulation. 2. Chest pain: Nonischemic. No recurrence despite repeated episodes of tachycardia. 3. Cardiomyopathy: Echocardiogram report pending. 4. CAD: Very mild nonobstructive CAD noted on 2018 cardiac catheterization. She does have chest discomfort today which appears to correlate with her wide complex tachycardia. Serial troponins negative thus far x3. Has had GI bleeding in the past with NSAIDs and therefore is not on aspirin. Admission and Anticipated Discharge Date Admission Date: November 14, 2020 Subjective This morning the patient felt tired. She did not notice any recurrent chest discomfort despite the presence of tachycardia. She did not report any palpitations. No abdominal discomfort. No dizziness or lightheadedness. Review of Systems Review of Systems: Per HPI Physical Exam Physical Exam: Gen.: No acute distress. Alert and oriented. HEENT: Anicteric sclera. Cardiac: regular rhythm. Pulmonary: Normal respiratory effort Abdomen: Soft Extremities: No cyanosis. Psychiatric: Affect appears appropriate. Results & Data ([facility]) Vital Signs (Past 12 Hours) Vital Signs Temp Pulse Resp BP Pulse Ox 11/15/20 08:05 112 H 139/106 H 11/15/20 08:00 77 11/15/20 06:06 79 17 146/70 H 94 11/15/20 05:06 75 14 155/59 H 94 11/15/20 04:00 37 C 76 16 146/64 H 93 11/15/20 03:07 80 23 178/81 H 95 11/15/20 02:06 75 27 H 170/71 H 96 11/15/20 01:06 72 25 H 162/76 H 92 11/15/20 00:06 72 20 157/63 H 93 11/14/20 23:06 70 18 149/74 H 89 L 11/14/20 22:49 72 11/14/20 22:06 36.5 C 69 16 144/69 H 98 Laboratory Results Abnormal Lab Results 11/14/20 11/14/20 11/14/20 08:45 11:30 11:50 WBC RBC Hgb Hct MCV MCH MCHC RDW Std Deviation RDW Coeff of Chauncey Plt Count MPV Immature Gran % (Auto) Neut % (Auto) Lymph % (Auto) Grady % (Auto) Eos % (Auto) Baso % (Auto) Neut # (Auto) Lymph # (Auto) Grady # (Auto) Eos # (Auto) Baso # (Auto) Immature Gran # (Auto) Sodium Potassium Chloride Carbon Dioxide Anion Gap BUN Creatinine Est Cr Clr Drug Dosing Est GFR ( Amer) Est GFR (Non-Af Amer) BUN/Creatinine Ratio Glucose POC Glucose Calcium Phosphorus Magnesium 1.7 L Total Bilirubin AST ALT Alkaline Phosphatase Troponin I < 0.015 Total Protein Albumin Globulin Albumin/Globulin Ratio Procalcitonin TSH Random Cortisol Urine Color Yellow Urine Appearance Clear Urine pH 8.0 H Ur Specific [place] 1.008 Urine Protein Negative Urine Glucose (UA) Negative Urine Ketones Negative Urine Blood Negative Urine Nitrite Positive A Urine Bilirubin Negative Urine Urobilinogen Negative Ur Leukocyte Esterase 1+ H Urine WBC (Auto) 10-30 H Urine RBC (Auto) 0-4 U Hyaline Cast (Auto) 1-5 U Epithel Cells (Auto) 10-20 H Urine Bacteria (Auto) Negative Nasal Screen MRSA (PCR) COVID-19 Eval Order SARS-CoV-2 (PCR) 11/14/20 11/14/20 11/14/20 12:45 12:45 16:23 WBC RBC Hgb Hct MCV MCH MCHC RDW Std Deviation RDW Coeff of Chauncey Plt Count MPV Immature Gran % (Auto) Neut % (Auto) Lymph % (Auto) Grady % (Auto) Eos % (Auto) Baso % (Auto) Neut # (Auto) Lymph # (Auto) Grady # (Auto) Eos # (Auto) Baso # (Auto) Immature Gran # (Auto) Sodium Potassium Chloride Carbon Dioxide Anion Gap BUN Creatinine Est Cr Clr Drug Dosing Est GFR ( Amer) Est GFR (Non-Af Amer) BUN/Creatinine Ratio Glucose POC Glucose Calcium Phosphorus Magnesium Total Bilirubin AST ALT Alkaline Phosphatase Troponin I < 0.015 Total Protein Albumin Globulin Albumin/Globulin Ratio Procalcitonin TSH Random Cortisol Urine Color Urine Appearance Urine pH Ur Specific [place] Urine Protein Urine Glucose (UA) Urine Ketones Urine Blood Urine Nitrite Urine Bilirubin Urine Urobilinogen Ur Leukocyte Esterase Urine WBC (Auto) Urine RBC (Auto) U Hyaline Cast (Auto) U Epithel Cells (Auto) Urine Bacteria (Auto) Nasal Screen MRSA (PCR) COVID-19 Eval Order Covid19 at [facility] SARS-CoV-2 (PCR) NEGATIVE 11/14/20 11/14/20 11/14/20 17:30 17:30 17:30 WBC 16.55 H RBC 3.58 L Hgb 9.6 L Hct 30.6 L MCV 85.5 MCH 26.8 MCHC 31.4 L RDW Std Deviation 46.8 H RDW Coeff of Chauncey 14.8 H Plt Count 484 H MPV 8.6 Immature Gran % (Auto) 0.4 Neut % (Auto) 88.6 Lymph % (Auto) 5.6 Grady % (Auto) 4.5 Eos % (Auto) 0.7 Baso % (Auto) 0.2 Neut # (Auto) 14.66 H Lymph # (Auto) 0.92 L Grady # (Auto) 0.75 H Eos # (Auto) 0.12 Baso # (Auto) 0.03 Immature Gran # (Auto) 0.07 H Sodium 128 L Potassium 4.0 Chloride 95 L Carbon Dioxide 28 Anion Gap 5.0 BUN 8 Creatinine 0.34 L Est Cr Clr Drug Dosing 102.6 Est GFR ( Amer) 119.4 Est GFR (Non-Af Amer) 103.0 BUN/Creatinine Ratio 23.2 H Glucose 79 POC Glucose Calcium 8.6 Phosphorus 2.9 Magnesium 1.9 Total Bilirubin 0.4 AST 12 L ALT 13 Alkaline Phosphatase 85 Troponin I Total Protein 6.1 L Albumin 2.2 L Globulin 3.9 Albumin/Globulin Ratio 0.6 L Procalcitonin 0.05 TSH Random Cortisol Urine Color Urine Appearance Urine pH Ur Specific [place] Urine Protein Urine Glucose (UA) Urine Ketones Urine Blood Urine Nitrite Urine Bilirubin Urine Urobilinogen Ur Leukocyte Esterase Urine WBC (Auto) Urine RBC (Auto) U Hyaline Cast (Auto) U Epithel Cells (Auto) Urine Bacteria (Auto) Nasal Screen MRSA (PCR) COVID-19 Eval Order SARS-CoV-2 (PCR) 11/14/20 11/14/20 11/14/20 17:30 17:30 20:27 WBC RBC Hgb Hct MCV MCH MCHC RDW Std Deviation RDW Coeff of Chauncey Plt Count MPV Immature Gran % (Auto) Neut % (Auto) Lymph % (Auto) Grady % (Auto) Eos % (Auto) Baso % (Auto) Neut # (Auto) Lymph # (Auto) Grady # (Auto) Eos # (Auto) Baso # (Auto) Immature Gran # (Auto) Sodium Potassium Chloride Carbon Dioxide Anion Gap BUN Creatinine Est Cr Clr Drug Dosing Est GFR ( Amer) Est GFR (Non-Af Amer) BUN/Creatinine Ratio Glucose POC Glucose Calcium Phosphorus Magnesium Total Bilirubin AST ALT Alkaline Phosphatase Troponin I < 0.015 Total Protein Albumin Globulin Albumin/Globulin Ratio Procalcitonin TSH 2.140 Random Cortisol 20.92 Urine Color Urine Appearance Urine pH Ur Specific [place] Urine Protein Urine Glucose (UA) Urine Ketones Urine Blood Urine Nitrite Urine Bilirubin Urine Urobilinogen Ur Leukocyte Esterase Urine WBC (Auto) Urine RBC (Auto) U Hyaline Cast (Auto) U Epithel Cells (Auto) Urine Bacteria (Auto) Nasal Screen MRSA (PCR) COVID-19 Eval Order SARS-CoV-2 (PCR) 11/14/20 11/14/20 11/15/20 21:24 22:11 03:57 WBC RBC Hgb Hct MCV MCH MCHC RDW Std Deviation RDW Coeff of Chauncey Plt Count MPV Immature Gran % (Auto) Neut % (Auto) Lymph % (Auto) Grady % (Auto) Eos % (Auto) Baso % (Auto) Neut # (Auto) Lymph # (Auto) Grady # (Auto) Eos # (Auto) Baso # (Auto) Immature Gran # (Auto) Sodium Potassium Chloride Carbon Dioxide Anion Gap BUN Creatinine Est Cr Clr Drug Dosing Est GFR ( Amer) Est GFR (Non-Af Amer) BUN/Creatinine Ratio Glucose POC Glucose 90 88 Calcium Phosphorus Magnesium Total Bilirubin AST ALT Alkaline Phosphatase Troponin I Total Protein Albumin Globulin Albumin/Globulin Ratio Procalcitonin TSH Random Cortisol Urine Color Urine Appearance Urine pH Ur Specific [place] Urine Protein Urine Glucose (UA) Urine Ketones Urine Blood Urine Nitrite Urine Bilirubin Urine Urobilinogen Ur Leukocyte Esterase Urine WBC (Auto) Urine RBC (Auto) U Hyaline Cast (Auto) U Epithel Cells (Auto) Urine Bacteria (Auto) Nasal Screen MRSA (PCR) Negative COVID-19 Eval Order SARS-CoV-2 (PCR) 11/15/20 11/15/20 04:21 04:21 WBC 15.84 H RBC 3.45 L Hgb 9.2 L Hct 29.4 L MCV 85.2 MCH 26.7 MCHC 31.3 L RDW Std Deviation 47.0 H RDW Coeff of Chauncey 15.0 H Plt Count 475 H MPV 9.1 Immature Gran % (Auto) 0.5 Neut % (Auto) 84.4 Lymph % (Auto) 6.4 Grady % (Auto) 5.7 Eos % (Auto) 2.7 Baso % (Auto) 0.3 Neut # (Auto) 13.36 H Lymph # (Auto) 1.01 L Grady # (Auto) 0.91 H Eos # (Auto) 0.43 Baso # (Auto) 0.05 Immature Gran # (Auto) 0.08 H Sodium 128 L Potassium 3.5 Chloride 95 L Carbon Dioxide 27 Anion Gap 6.0 BUN 10 Creatinine 0.33 L Est Cr Clr Drug Dosing 105.7 Est GFR ( Amer) 120.6 Est GFR (Non-Af Amer) 104.1 BUN/Creatinine Ratio 29.5 H Glucose 80 POC Glucose Calcium 8.5 Phosphorus 3.8 Magnesium 2.0 Total Bilirubin AST ALT Alkaline Phosphatase Troponin I Total Protein Albumin Globulin Albumin/Globulin Ratio Procalcitonin TSH Random Cortisol Urine Color Urine Appearance Urine pH Ur Specific [place] Urine Protein Urine Glucose (UA) Urine Ketones Urine Blood Urine Nitrite Urine Bilirubin Urine Urobilinogen Ur Leukocyte Esterase Urine WBC (Auto) Urine RBC (Auto) U Hyaline Cast (Auto) U Epithel Cells (Auto) Urine Bacteria (Auto) Nasal Screen MRSA (PCR) COVID-19 Eval Order SARS-CoV-2 (PCR) PG Care Time/CCT Total # of Minutes Spent Total Time Spent with Patient: Total time spent is greater than 50% in coordination of care (as documented) at patient's floor/unit and/or counseling patient: Coding Level of Care Code 38420 Subseq Hosp Care Lvl 3 Diagnoses Ventricular tachycardia I47.2 Wide-complex tachycardia I47.2 Chest pain R07.9 Chest pain type: unspecified Cardiomyopathy I42.9 CAD (coronary artery disease) I25.10 (1) Chest pain Chest pain type: unspecified Qualified Code(s): R07.9 - Chest pain, unspecified
[2020-11-15] MEDS: AMIODARONE / D5W 360 MG/200 ML BAG IV SCH (10:07)
--- NOTE | 2020-11-15 13:52 | Billing Data ---
Date of Service November 15, 2020 Coding Level of Care Code Critical Care 1st 30-74 mins Time Spent (min) 35
[2020-11-15] MEDS: CHOLECALCIFEROL 1,000 UNITS 25 MCG TAB PO SCH (14:15)
[2020-11-15] MEDS: METOPROLOL TARTRATE 50 MG TAB PO SCH ×2 (14:16→21:03)
[2020-11-15] MEDS: DOCUSATE SODIUM/SENNA 50/8.6MG TAB PO SCH ×2 (14:16→21:04)
--- NOTE | 2020-11-15 14:20 | XCELERA ---
[id number]
--- NOTE | 2020-11-15 15:58 | Hospitalist Progress Note ---
Date of Service November 15, 2020 Assessment & Plan (1) Wide-complex tachycardia: appreciate cardiology consult appears to be atrial fibrillation with aberrancy but not 100% sure continue Amiodarone drip and plan for 400mg BID and will taper to maintenance dose hopefully with control of rates can see if she is in afib not committed to anticoagulation quite yet (2) Cardiomyopathy: global hypokinesis, EF 40% non-ischemic appears euvolemic (3) Chest pain: had pain with tachycardia yesterday troponin negative x 3 sets echo with global hypokinesis that is chronic, no regional wall motion changes (4) CAD (coronary artery disease): (5) Ventricular tachycardia: (6) Acute UTI: leukocytosis and UA showing infection culture with Pseudomonas species change Rocephin to Cefepime (7) Anemia: chronic, normocytic, Hb is 9.2 (8) GERD (gastroesophageal reflux disease): Admission and Anticipated Discharge Date Admission Date: November 14, 2020 Subjective patient laying in bed, no distress, no chest pain, no dyspnea she had some additional wide complex tachycardia this morning, resolved with amiodarone bolus currently on drip appreciate cardiology consult for amiodarone and Lopressor reviewed urine culture, growing Pseudomonas, will change Rocephin to Cefepime reviewed chart and labs discussed with fusing machine feeder Review of Systems Review of Systems: All systems reviewed & are unremarkable except as noted in Subjective Physical Exam Constitutional: WD/WN, vitals as above + frail appearing and comfortable Neck: trachea midline, no thyromegaly Respiratory: normal respiratory effort, lungs clear to auscultation Cardiovascular: Rate/Rhythm: regular rate and + irregularly irregular Heart Sounds: normal S1 and normal S2; no murmur Vessels: no JVD Extremities: normal capillary refill; no edema Gastrointestinal (Abdomen): normal bowel sounds, soft, nontender, no hepatosplenomegaly Musculoskeletal: no cyanosis or clubbing, extremities motor strength 5/5 Skin: no rashes, warm and dry Neurologic: patellar DTR's 2+ bilat, sensation intact and PERRL, EOMI, accommodation nl, no face palsy, no dysarthria Psychiatric: A+Ox3, euthymic affect Lymphatic: no cervical or axillary lymphadenopathy Results & Data Results & Data ([facility]) Vital Signs (Past 12 Hours) Vital Signs Temp Pulse Resp BP Pulse Ox 11/15/20 15:45 68 11/15/20 14:06 68 22 108/69 94 11/15/20 13:06 65 17 147/62 H 93 11/15/20 12:06 71 15 142/68 H 96 11/15/20 11:06 64 15 139/70 94 11/15/20 10:06 63 19 137/65 93 11/15/20 09:06 67 22 139/66 90 11/15/20 08:35 64 12 120/60 11/15/20 08:06 105 H 14 113/79 95 11/15/20 08:05 112 H 139/106 H 11/15/20 08:00 36.8 C 77 11/15/20 07:36 101 H 18 139/106 H 95 11/15/20 07:03 127 H 19 136/110 H 97 11/15/20 06:06 79 17 146/70 H 94 11/15/20 05:06 75 14 155/59 H 94 11/15/20 04:00 37 C 76 16 146/64 H 93 Laboratory Results Laboratory Results - last 24 hr 11/14/20 11/14/20 11/14/20 16:23 17:30 17:30 WBC 16.55 H RBC 3.58 L Hgb 9.6 L Hct 30.6 L MCV 85.5 MCH 26.8 MCHC 31.4 L RDW Std Deviation 46.8 H RDW Coeff of Chauncey 14.8 H Plt Count 484 H MPV 8.6 Immature Gran % (Auto) 0.4 Neut % (Auto) 88.6 Lymph % (Auto) 5.6 [place] % (Auto) 4.5 Eos % (Auto) 0.7 Baso % (Auto) 0.2 Neut # (Auto) 14.66 H Lymph # (Auto) 0.92 L [place] # (Auto) 0.75 H Eos # (Auto) 0.12 Baso # (Auto) 0.03 Immature Gran # (Auto) 0.07 H Sodium Potassium Chloride Carbon Dioxide Anion Gap BUN Creatinine Est Cr Clr Drug Dosing Est GFR ( Amer) Est GFR (Non-Af Amer) BUN/Creatinine Ratio Glucose POC Glucose Calcium Phosphorus Magnesium Total Bilirubin AST ALT Alkaline Phosphatase Troponin I < 0.015 Total Protein Albumin Globulin Albumin/Globulin Ratio Procalcitonin 0.05 TSH Random Cortisol Nasal Screen MRSA (PCR) 11/14/20 11/14/20 11/14/20 17:30 17:30 17:30 WBC RBC Hgb Hct MCV MCH MCHC RDW Std Deviation RDW Coeff of Chauncey Plt Count MPV Immature Gran % (Auto) Neut % (Auto) Lymph % (Auto) [place] % (Auto) Eos % (Auto) Baso % (Auto) Neut # (Auto) Lymph # (Auto) [place] # (Auto) Eos # (Auto) Baso # (Auto) Immature Gran # (Auto) Sodium 128 L Potassium 4.0 Chloride 95 L Carbon Dioxide 28 Anion Gap 5.0 BUN 8 Creatinine 0.34 L Est Cr Clr Drug Dosing 102.6 Est GFR ( Amer) 119.4 Est GFR (Non-Af Amer) 103.0 BUN/Creatinine Ratio 23.2 H Glucose 79 POC Glucose Calcium 8.6 Phosphorus 2.9 Magnesium 1.9 Total Bilirubin 0.4 AST 12 L ALT 13 Alkaline Phosphatase 85 Troponin I Total Protein 6.1 L Albumin 2.2 L Globulin 3.9 Albumin/Globulin Ratio 0.6 L Procalcitonin TSH 2.140 Random Cortisol 20.92 Nasal Screen MRSA (PCR) 11/14/20 11/14/20 11/14/20 20:27 21:24 22:11 WBC RBC Hgb Hct MCV MCH MCHC RDW Std Deviation RDW Coeff of Chauncey Plt Count MPV Immature Gran % (Auto) Neut % (Auto) Lymph % (Auto) [place] % (Auto) Eos % (Auto) Baso % (Auto) Neut # (Auto) Lymph # (Auto) [place] # (Auto) Eos # (Auto) Baso # (Auto) Immature Gran # (Auto) Sodium Potassium Chloride Carbon Dioxide Anion Gap BUN Creatinine Est Cr Clr Drug Dosing Est GFR ( Amer) Est GFR (Non-Af Amer) BUN/Creatinine Ratio Glucose POC Glucose 90 Calcium Phosphorus Magnesium Total Bilirubin AST ALT Alkaline Phosphatase Troponin I < 0.015 Total Protein Albumin Globulin Albumin/Globulin Ratio Procalcitonin TSH Random Cortisol Nasal Screen MRSA (PCR) Negative 11/15/20 11/15/20 11/15/20 03:57 04:21 04:21 WBC 15.84 H RBC 3.45 L Hgb 9.2 L Hct 29.4 L MCV 85.2 MCH 26.7 MCHC 31.3 L RDW Std Deviation 47.0 H RDW Coeff of Chauncey 15.0 H Plt Count 475 H MPV 9.1 Immature Gran % (Auto) 0.5 Neut % (Auto) 84.4 Lymph % (Auto) 6.4 [place] % (Auto) 5.7 Eos % (Auto) 2.7 Baso % (Auto) 0.3 Neut # (Auto) 13.36 H Lymph # (Auto) 1.01 L [place] # (Auto) 0.91 H Eos # (Auto) 0.43 Baso # (Auto) 0.05 Immature Gran # (Auto) 0.08 H Sodium 128 L Potassium 3.5 Chloride 95 L Carbon Dioxide 27 Anion Gap 6.0 BUN 10 Creatinine 0.33 L Est Cr Clr Drug Dosing 105.7 Est GFR ( Amer) 120.6 Est GFR (Non-Af Amer) 104.1 BUN/Creatinine Ratio 29.5 H Glucose 80 POC Glucose 88 Calcium 8.5 Phosphorus 3.8 Magnesium 2.0 Total Bilirubin AST ALT Alkaline Phosphatase Troponin I Total Protein Albumin Globulin Albumin/Globulin Ratio Procalcitonin TSH Random Cortisol Nasal Screen MRSA (PCR) 11/15/20 11:35 WBC RBC Hgb Hct MCV MCH MCHC RDW Std Deviation RDW Coeff of Chauncey Plt Count MPV Immature Gran % (Auto) Neut % (Auto) Lymph % (Auto) [place] % (Auto) Eos % (Auto) Baso % (Auto) Neut # (Auto) Lymph # (Auto) [place] # (Auto) Eos # (Auto) Baso # (Auto) Immature Gran # (Auto) Sodium Potassium Chloride Carbon Dioxide Anion Gap BUN Creatinine Est Cr Clr Drug Dosing Est GFR ( Amer) Est GFR (Non-Af Amer) BUN/Creatinine Ratio Glucose POC Glucose 94 Calcium Phosphorus Magnesium Total Bilirubin AST ALT Alkaline Phosphatase Troponin I Total Protein Albumin Globulin Albumin/Globulin Ratio Procalcitonin TSH Random Cortisol Nasal Screen MRSA (PCR) Medications Administered Current Inpatient Medications Acetaminophen (Acetaminophen 325 Mg Tab) 650 mg PO Q8H PRN PRN Reason: Pain Stop: 12/14/20 15:44 Hydrocodone Bitart/Acetaminophen (Hydrocodone/Acetamophen 5/325mg Tab) 0.5 tab PO Q6H PRN PRN Reason: pain 6-10 Stop: 11/28/20 15:44 Amitriptyline HCl (Amitriptyline Hcl 10 Mg Tab) 10 mg PO HS HOWIE Stop: 12/14/20 20:59 Last Admin: 11/14/20 19:40 Dose: 10 mg Documented by: Artificial Tears (Artificial Tears) 1 drops OP DAILY PRN PRN Reason: Dry Eyes Stop: 12/14/20 16:08 Calcium Carbonate (Calcium Carbonate 500 Mg Chewable Tab) 500 mg PO DAILY PRN PRN Reason: Indigestion Stop: 12/14/20 15:44 Docusate Sodium (Docusate Sodium 100 Mg Cap) 100 mg PO QAM PRN PRN Reason: Constipation Stop: 12/14/20 15:44 Enoxaparin Sodium (Enoxaparin Inj 40 Mg/0.4 Ml Syr) 40 mg SQ Q24H HOWIE Stop: 12/14/20 16:59 Last Admin: 11/14/20 17:23 Dose: 40 mg Documented by: Fluticasone/Vilanterol (Fluticasone/Vilanterol 200/25mcg 14 Puffs/Inhaler) 1 puffs INH DAILY HOWIE Stop: 12/15/20 08:59 Last Admin: 11/15/20 08:10 Dose: 1 puffs Documented by: Amiodarone HCl/Dextrose (Nexterone / D5w) 360 mg in 200 mls @ 16.667 mls/hr IV .Q12H HOWIE Stop: 11/15/20 16:35 Last Admin: 11/15/20 10:07 Dose: 0.5 mg/min, 16.7 mls/hr Documented by: Cefepime HCl 1,000 mg/ Syringe 11.3 mls @ 5.5 mls/min IV Q12 HOWIE Stop: 11/20/20 20:59 Lisinopril (Lisinopril 10 Mg Tab) 10 mg PO BID HOWIE Stop: 12/14/20 20:59 Last Admin: 11/15/20 08:11 Dose: 10 mg Documented by: Metoprolol Tartrate (Metoprolol Tartrate 50 Mg Tab) 50 mg PO Q8 HOWIE Stop: 12/15/20 13:59 Last Admin: 11/15/20 14:16 Dose: 50 mg Documented by: Miscellaneous (Icu Protocol For Hyperglycemia) 1 ea N/A PRN PRN; Protocol PRN Reason: Hyperglycemia Protocol Stop: 11/16/20 15:44 Nitroglycerin (Nitroglycerin Sl 0.4 Mg/Tab Tab) 0.4 mg SL UD PRN PRN Reason: Chest Pain Stop: 12/14/20 15:44 Oxycodone/Acetaminophen (Oxycodone/Acetaminophen 5mg/325mg Tab) 1 tab PO Q4H PRN PRN Reason: Pain Stop: 11/28/20 17:33 Last Admin: 11/15/20 15:52 Dose: 1 tab Documented by: Pantoprazole Sodium (Pantoprazole 40 Mg Tab) 40 mg PO [facility] Stop: 12/15/20 08:59 Last Admin: 11/15/20 08:11 Dose: 40 mg Documented by: Prednisone (Prednisone 5 Mg Tab) 5 mg PO [facility] Stop: 12/15/20 08:59 Last Admin: 11/15/20 08:10 Dose: 5 mg Documented by: Prednisone (Prednisone 1 Mg Tab) 2 mg PO [facility] Stop: 12/15/20 08:59 Last Admin: 11/15/20 08:11 Dose: 2 mg Documented by: Saccharomyces Boulardii (Saccharomyces Boulardii 250 Mg Cap) 250 mg PO [facility] Stop: 12/15/20 08:59 Last Admin: 11/15/20 08:10 Dose: 250 mg Documented by: Senna/Docusate Sodium (Docusate Sodium/Senna 50/8.6mg Tab) 1 tab PO BID@1400,2100 [facility] Stop: 12/14/20 20:59 Last Admin: 11/15/20 14:16 Dose: 1 tab Documented by: Vitamin D (Cholecalciferol 1,000 Units 25 Mcg Tab) 5,000 units PO DAILY@1400 [facility] Stop: 12/15/20 13:59 Last Admin: 11/15/20 14:15 Dose: 5,000 units Documented by: PG Care Time/CCT Total # of Minutes Spent Total Time Spent with Patient: Total time spent is greater than 50% in coordination of care (as documented) at patient's floor/unit and/or counseling patient: Coding Level of Care Code 56901 Subseq Hosp Care Lvl 3 Diagnoses Wide-complex tachycardia I47.2 Cardiomyopathy I42.9 Chest pain R07.9 Chest pain type: unspecified CAD (coronary artery disease) I25.10 Ventricular tachycardia I47.2 Acute UTI N39.0 Anemia D64.9 GERD (gastroesophageal reflux disease) K21.9 (1) Chest pain Chest pain type: unspecified Qualified Code(s): R07.9 - Chest pain, unspecified
[2020-11-15] MEDS: ENOXAPARIN INJ 40 MG/0.4 ML SYR SQ SCH (18:09)
[2020-11-15] MEDS: CEFEPIME 1,000 MG in SYRINGE 0 ML IV SCH (21:02)
[2020-11-15] MEDS: HYDROCODONE/ACETAMOPHEN 5/325MG TAB PO PRN (21:03)
[2020-11-15] MEDS: AMITRIPTYLINE HCL 10 MG TAB PO SCH (21:05)
--- NOTE | 2020-11-15 23:09 | Electrocardiogram Report ---
Test Reason : Blood Pressure : / mmHG Vent. Rate : 083 BPM Atrial Rate : 083 BPM P-R Int : 148 ms QRS Dur : 096 ms QT Int : 396 ms P-R-T Axes : 069 026 072 degrees QTc Int : 465 ms Sinus rhythm with Premature atrial complexes Minimal voltage criteria for LVH, may be normal variant Nonspecific ST abnormality Abnormal ECG When compared with ECG of 14-NOV-2020 13:03, Sinus rhythm has replaced wide complex tachycardia Left bundle branch block is no longer Present Confirmed by Prudencio Frederick ([id number] on 11/15/2020 11:09:00 PM Referred By: [facility] Confirmed By:Prudencio Frederick
[2020-11-16] MEDS: oxyCODONE/ACETAMINOPHEN 5mg/325mg TAB PO PRN (04:26)
[2020-11-16 06:06] LABS: Hematocrit (blood only) 28.6 % (37-47); Hemoglobin 9.1 g/dL (12.0-16.0); Mean Corpuscular Hemoglobin 26.8 pg (25-34); Mean Corpuscular Hgb Conc 31.8 g/dL (32-36); Mean Corpuscular Volume 84.4 fL (80-100); Mean Platelet Volume 8.9 fL (7.4-10.4); Platelet Count 511 K/uL (130-400); RDW Coefficient of Variation 14.9 % (11.5-14.5); RDW Standard Deviation 45.8 fL (36.4-46.3); Red Blood Count 3.39 M/uL (4.2-5.4); White Blood Count 14.32 K/uL (4.8-10.8)
[2020-11-16 06:35] LABS: BUN Creatinine Ratio 32.5 (10-20); Calcium 8.4 mg/dl (8.5-10.1); Creatinine Clr Calc Pharmacy 74.2 ml/min; Est GFR (African American) 107.4 ml/min; Est GFR (Non-African American) 92.6 ml/min; Potassium 3.9 mmol/L (3.5-5.1)
--- NOTE | 2020-11-16 06:39 | Electrocardiogram Report ---
Test Reason : Blood Pressure : / mmHG Vent. Rate : 110 BPM Atrial Rate : 119 BPM P-R Int : 000 ms QRS Dur : 172 ms QT Int : 426 ms P-R-T Axes : 000 -60 113 degrees QTc Int : 576 ms Possible Atrial fibrillation with rapid ventricular response Left axis deviation Left bundle branch block Abnormal ECG When compared with ECG of 14-NOV-2020 14:39, Atrial fibrillation has replaced Sinus rhythm Left bundle branch block is now Present Confirmed by Prudencio Frederick ([id number]) on 11/16/2020 6:38:43 AM Referred By: [facility] Confirmed By:Prudencio Frederick
[2020-11-16] MEDS: METOPROLOL TARTRATE 50 MG TAB PO SCH ×3 (07:48→21:14)
[2020-11-16] MEDS: CEFEPIME 1,000 MG in SYRINGE 0 ML IV SCH ×2 (08:28→21:11)
[2020-11-16] MEDS: FLUTICASONE/VILANTEROL 200/25MCG 14 PUFFS/INHALER INH SCH (08:29)
[2020-11-16] MEDS: predniSONE 5 MG TAB PO SCH (08:30)
[2020-11-16] MEDS: PANTOprazole 40 MG TAB PO SCH (08:30)
[2020-11-16] MEDS: SACCHAROMYCES BOULARDII 250 MG CAP PO SCH (08:30)
[2020-11-16] MEDS: lisinopril 10 MG TAB PO SCH ×2 (08:31→21:14)
[2020-11-16] MEDS: predniSONE 1 MG TAB PO SCH (08:32)
--- NOTE | 2020-11-16 09:13 | Cardiology Progress Note ---
Date of Service November 16, 2020 Assessment & Plan (1) Ventricular tachycardia: (2) Wide-complex tachycardia: (3) Chest pain: (4) Cardiomyopathy: (5) CAD (coronary artery disease): ASSESSMENT/PLAN: 1. Wide complex tachycardia: No additional sustained episodes of wide complex tachycardia. Review of her telemetry reveals frequent wide complex beats and occasional couplets and triplets. However, I believe this represents aberrancy. Many of these beats are preceded by a P-wave. I believe that his sustained wide complex tachycardia was not ventricular tachycardia but more likely atrial fibrillation. She seems to be doing well on amiodarone and metoprolol. No recurrent symptoms or sustained arrhythmias. Overall heart rates appear adequate. Based on her risk factors for stroke, I would recommend systemic anticoagulation. This needs to be taken in context of her history of gastrointestinal hemorrhage and chronic anemia. Her prior hemorrhage was felt to be related to use of naproxen. She has not had evidence of recurrent gastrointestinal bleeding but does manifest a persistently low hemoglobin level. If there are no contraindications to anticoagulation Eliquis 2.5 mg twice daily would be my recommended regimen. 2. Chest pain: Nonischemic. No recurrence.. 3. Cardiomyopathy: To have mildly reduced LV systolic function. Perhaps slightly better than an echocardiogram obtained at [facility] earlier this year. She has severe left atrial dilation would certainly places her at risk of atrial fibrillation. No evidence of decompensation. No breathing difficulty. She can continue on metoprolol and lisinopril. Her metoprolol was switched to tartrate in order to facilitate more rapid titration during her hospitalization. At the time of discharge we can convert her dose back to metoprolol succinate. 4. CAD: Very mild nonobstructive CAD noted on 2018 cardiac catheterization. She does have chest discomfort today which appears to correlate with her wide complex tachycardia. Serial troponins negative thus far x3. Has had GI bleeding in the past with NSAIDs and therefore is not on aspirin. Admission and Anticipated Discharge Date Admission Date: November 14, 2020 Subjective This morning the patient claims to be feeling well with the exception of her typical arthritis and fracture discomfort. She has not noticed any palpitations. She has not had any dizziness or lightheadedness. She has remained bedbound. No additional episodes of chest discomfort. Review of Systems Review of Systems: All systems reviewed & are unremarkable except as noted in HPI & below Physical Exam Physical Exam: Gen.: No acute distress. Alert and oriented. HEENT: Anicteric sclera. Cardiac: regular rhythm. Pulmonary: Normal respiratory effort Abdomen: Soft Extremities: No cyanosis. Psychiatric: Affect appears appropriate. Results & Data ([facility]) Vital Signs (Past 12 Hours) Vital Signs Temp Pulse Pulse Resp BP Pulse Ox 11/16/20 07:18 36.8 C 73 17 132/74 97 11/16/20 04:41 36.9 C 76 18 162/75 H 97 11/16/20 00:22 57 L 11/15/20 22:50 36.6 C 67 18 150/66 H 95 Laboratory Results Abnormal Lab Results 11/15/20 11/16/20 11/16/20 11:35 05:48 05:48 WBC 14.32 H RBC 3.39 L Hgb 9.1 L Hct 28.6 L MCV 84.4 MCH 26.8 MCHC 31.8 L RDW Std Deviation 45.8 RDW Coeff of Chauncey 14.9 H Plt Count 511 H MPV 8.9 Sodium 131 L Potassium 3.9 Chloride 99 Carbon Dioxide 29 Anion Gap 3.0 BUN 15 Creatinine 0.47 L Est Cr Clr Drug Dosing 74.2 Est GFR ( Amer) 107.4 Est GFR (Non-Af Amer) 92.6 BUN/Creatinine Ratio 32.5 H Glucose 105 H POC Glucose 94 Calcium 8.4 L PG Care Time/CCT Total # of Minutes Spent Total Time Spent with Patient: Total time spent is greater than 50% in coordination of care (as documented) at patient's floor/unit and/or counseling patient: Coding Level of Care Code 96780 Subseq Hosp Care Lvl 2 Diagnoses Ventricular tachycardia I47.2 Wide-complex tachycardia I47.2 Chest pain R07.9 Chest pain type: unspecified Cardiomyopathy I42.9 CAD (coronary artery disease) I25.10 (1) Chest pain Chest pain type: unspecified Qualified Code(s): R07.9 - Chest pain, unspecified
[2020-11-16] MEDS: HYDROCODONE/ACETAMOPHEN 5/325MG TAB PO PRN ×2 (10:15→19:04)
--- NOTE | 2020-11-16 11:24 | Hospitalist Progress Note ---
Date of Service November 16, 2020 Assessment & Plan (1) Atrial fibrillation: Amiodarone 400mg BID, will taper down to 200mg daily over time Metoprolol 50mg q8 will start Eliquis 2.5mg BID she has a history of GI bleed 3 years ago when taking a lot of Aleve no bleeding since that time hb is 9 but likely has anemia of chronic disease given her inflammatory state with RA (2) Wide-complex tachycardia: appreciate cardiology consult appears to be atrial fibrillation with aberrancy continue Amiodarone drip and plan for 400mg BID and will taper to maintenance dose had a brief episode today (3) Cardiomyopathy: global hypokinesis, EF 40% non-ischemic appears euvolemic (4) Chest pain: had pain with tachycardia yesterday troponin negative x 3 sets echo with global hypokinesis that is chronic, no regional wall motion changes (5) CAD (coronary artery disease): (6) Acute UTI: leukocytosis and UA showing infection culture with Pseudomonas species, sensitive to Cefepime, resistant to PO options Cefepime 1gm q12, today is day 1, needs 7 days would need to continue after discharge will need to ask CM if we can get this at [facility] (7) Anemia: chronic, normocytic, Hb is 9.2 likely anemia of chronic disease, inflammatory state with RA (8) GERD (gastroesophageal reflux disease): h/o gastritis and ulcer with bleed, three years ago when on Aleve no issues since stopping Aleve continue Protonix 40mg PO daily Admission and Anticipated Discharge Date Admission Date: November 14, 2020 Subjective patient had some tachycardia this morning, short lived after she got metoprolol appreciate note from Dr. Liu, likely afib with aberrancy, recommends Eliquis spoke with patient about Eliquis, she confirms she had a GI bleed three years ago when she took Aleve a lot for her arthritis she agrees to taking Eliquis to reduce risk of stroke, will start 2.5mg this evening she is eating okay, not great urine culture with Pseudomonas, sensitive to Cefepime at baseline she in a bed most of the time, stands pivots to a wheelchair she is at [facility] she is not thrilled about going back, was supposed to be short term and now has been a year Review of Systems Review of Systems: All systems reviewed & are unremarkable except as noted in Subjective Constitutional: + weakness; no fever, no chills, no sweats and no fatigue Respiratory: no cough and no dyspnea Cardiovascular: + chest pain (when she had tachycardia) Gastrointestinal: no abdominal pain, no nausea, no vomiting, no constipation and no diarrhea/loose stools Musculoskeletal: + muscle weakness Physical Exam Constitutional: WD/WN, vitals as above + frail appearing and comfortable Neck: trachea midline, no thyromegaly Respiratory: normal respiratory effort, lungs clear to auscultation Cardiovascular: Rate/Rhythm: regular rate and regular rhythm Heart Sounds: normal S1 and normal S2; no murmur Vessels: no JVD Extremities: normal capillary refill; no edema Gastrointestinal (Abdomen): normal bowel sounds, soft, nontender, no hepatosplenomegaly Musculoskeletal: no cyanosis or clubbing, extremities motor strength 5/5 Skin: no rashes, warm and dry Neurologic: patellar DTR's 2+ bilat, sensation intact and PERRL, EOMI, accommodation nl, no face palsy, no dysarthria Psychiatric: A+Ox3, euthymic affect Lymphatic: no cervical or axillary lymphadenopathy Results & Data Results & Data ([facility]) Vital Signs (Past 12 Hours) Vital Signs Temp Pulse Pulse Resp BP Pulse Ox 11/16/20 11:11 37.0 C 72 18 152/74 H 92 11/16/20 08:00 69 11/16/20 07:18 36.8 C 73 17 132/74 97 11/16/20 04:41 36.9 C 76 18 162/75 H 97 11/16/20 00:22 57 L Laboratory Results Laboratory Results - last 24 hr 11/15/20 11/16/20 11/16/20 11:35 05:48 05:48 WBC 14.32 H RBC 3.39 L Hgb 9.1 L Hct 28.6 L MCV 84.4 MCH 26.8 MCHC 31.8 L RDW Std Deviation 45.8 RDW Coeff of Chauncey 14.9 H Plt Count 511 H MPV 8.9 Sodium 131 L Potassium 3.9 Chloride 99 Carbon Dioxide 29 Anion Gap 3.0 BUN 15 Creatinine 0.47 L Est Cr Clr Drug Dosing 74.2 Est GFR ( Amer) 107.4 Est GFR (Non-Af Amer) 92.6 BUN/Creatinine Ratio 32.5 H Glucose 105 H POC Glucose 94 Calcium 8.4 L Medications Administered Current Inpatient Medications Acetaminophen (Acetaminophen 325 Mg Tab) 650 mg PO Q8H PRN PRN Reason: Pain Stop: 12/14/20 15:44 Hydrocodone Bitart/Acetaminophen (Hydrocodone/Acetamophen 5/325mg Tab) 0.5 tab PO Q6H PRN PRN Reason: pain 6-10 Stop: 11/28/20 15:44 Last Admin: 11/16/20 10:15 Dose: 0.5 tab Documented by: Amiodarone HCl (Amiodarone 200 Mg Tab) 400 mg PO BIDM HOWIE Stop: 12/16/20 16:59 Amitriptyline HCl (Amitriptyline Hcl 10 Mg Tab) 10 mg PO HS [facility] Stop: 12/14/20 20:59 Last Admin: 11/15/20 21:05 Dose: 10 mg Documented by: Apixaban (Apixaban 2.5 Mg Tab) 2.5 mg PO BID HOWIE Stop: 12/16/20 20:59 Artificial Tears (Artificial Tears) 1 drops OP DAILY PRN PRN Reason: Dry Eyes Stop: 12/14/20 16:08 Calcium Carbonate (Calcium Carbonate 500 Mg Chewable Tab) 500 mg PO DAILY PRN PRN Reason: Indigestion Stop: 12/14/20 15:44 Docusate Sodium (Docusate Sodium 100 Mg Cap) 100 mg PO QAM PRN PRN Reason: Constipation Stop: 12/14/20 15:44 Fluticasone/Vilanterol (Fluticasone/Vilanterol 200/25mcg 14 Puffs/Inhaler) 1 puffs INH DAILY HOWIE Stop: 12/15/20 08:59 Last Admin: 11/16/20 08:29 Dose: 1 puffs Documented by: Cefepime HCl 1,000 mg/ Syringe 11.3 mls @ 5.5 mls/min IV Q12 HOWIE Stop: 11/20/20 20:59 Last Admin: 11/16/20 08:28 Dose: 5.5 mls/min Documented by: Lisinopril (Lisinopril 10 Mg Tab) 10 mg PO BID HOWIE Stop: 12/14/20 20:59 Last Admin: 11/16/20 08:31 Dose: 10 mg Documented by: Metoprolol Tartrate (Metoprolol Tartrate 50 Mg Tab) 50 mg PO Q8 HOWIE Stop: 12/15/20 13:59 Last Admin: 11/16/20 07:48 Dose: 50 mg Documented by: Nitroglycerin (Nitroglycerin Sl 0.4 Mg/Tab Tab) 0.4 mg SL UD PRN PRN Reason: Chest Pain Stop: 12/14/20 15:44 Oxycodone/Acetaminophen (Oxycodone/Acetaminophen 5mg/325mg Tab) 1 tab PO Q4H PRN PRN Reason: Pain Stop: 11/28/20 17:33 Last Admin: 11/16/20 04:26 Dose: 1 tab Documented by: Pantoprazole Sodium (Pantoprazole 40 Mg Tab) 40 mg PO QAM [facility] Stop: 12/15/20 08:59 Last Admin: 11/16/20 08:30 Dose: 40 mg Documented by: Prednisone (Prednisone 5 Mg Tab) 5 mg PO QAM [facility] Stop: 12/15/20 08:59 Last Admin: 11/16/20 08:30 Dose: 5 mg Documented by: Prednisone (Prednisone 1 Mg Tab) 2 mg PO QAM [facility] Stop: 12/15/20 08:59 Last Admin: 11/16/20 08:32 Dose: 2 mg Documented by: Saccharomyces Boulardii (Saccharomyces Boulardii 250 Mg Cap) 250 mg PO QAM [facility] Stop: 12/15/20 08:59 Last Admin: 11/16/20 08:30 Dose: 250 mg Documented by: Senna/Docusate Sodium (Docusate Sodium/Senna 50/8.6mg Tab) 1 tab PO BID@1400,2100 [facility] Stop: 12/14/20 20:59 Last Admin: 11/15/20 21:04 Dose: 1 tab Documented by: Vitamin D (Cholecalciferol 1,000 Units 25 Mcg Tab) 5,000 units PO DAILY@1400 [facility] Stop: 12/15/20 13:59 Last Admin: 11/15/20 14:15 Dose: 5,000 units Documented by: PG Care Time/CCT Total # of Minutes Spent Total Time Spent with Patient: Total time spent is greater than 50% in coordination of care (as documented) at patient's floor/unit and/or counseling patient: Coding Level of Care Code 44249 Subseq Hosp Care Lvl 3 Diagnoses Atrial fibrillation I48.91 Wide-complex tachycardia I47.2 Cardiomyopathy I42.9 Chest pain R07.9 Chest pain type: unspecified CAD (coronary artery disease) I25.10 Acute UTI N39.0 Anemia D64.9 GERD (gastroesophageal reflux disease) K21.9 (1) Chest pain Chest pain type: unspecified Qualified Code(s): R07.9 - Chest pain, unspecified
[2020-11-16] MEDS: DOCUSATE SODIUM/SENNA 50/8.6MG TAB PO SCH ×2 (13:40→21:21)
[2020-11-16] MEDS: CHOLECALCIFEROL 1,000 UNITS 25 MCG TAB PO SCH (13:40)
[2020-11-16] MEDS: AMIODARONE 200 MG TAB PO SCH (17:36)
[2020-11-16] MEDS ORDERED: AMIODARONE 150MG / 100ML D5W IV ONE (18:00)
[2020-11-16] MEDS ORDERED: AMIODARONE / D5W 150 MG/100 ML BAG IV STA (18:05)
[2020-11-16] MEDS ORDERED: METOPROLOL TARTRATE 1 MG/ML VIAL IV ONE (18:41)
[2020-11-16] MEDS ORDERED: METOPROLOL TARTRATE 1 MG/ML VIAL IV STA (18:42)
[2020-11-16] MEDS ORDERED: AMIODARONE 360MG / 200ML D5W IV ONE (18:52)
[2020-11-16] MEDS ORDERED: AMIODARONE / D5W 360 MG/200 ML BAG IV ONE (19:05)
[2020-11-16] MEDS: AMITRIPTYLINE HCL 10 MG TAB PO SCH (21:14)
[2020-11-16] MEDS: APIXABAN 2.5 MG TAB PO SCH (21:14)
[2020-11-17] MEDS ORDERED: 0.2 MICRON FILTER SET 1 EA IV ONE (00:41)
[2020-11-17] MEDS ORDERED: AMIODARONE / D5W 360 MG/200 ML BAG IV SCH (00:45)
[2020-11-17] MEDS: HYDROCODONE/ACETAMOPHEN 5/325MG TAB PO PRN ×3 (01:41→15:00)
[2020-11-17] MEDS: METOPROLOL TARTRATE 50 MG TAB PO SCH ×3 (06:19→21:13)
--- NOTE | 2020-11-17 07:37 | Electrocardiogram Report ---
Test Reason : Blood Pressure : / mmHG Vent. Rate : 076 BPM Atrial Rate : 076 BPM P-R Int : 152 ms QRS Dur : 098 ms QT Int : 432 ms P-R-T Axes : 066 006 059 degrees QTc Int : 486 ms Sinus rhythm with Premature atrial complexes with Aberrant conduction Moderate voltage criteria for LVH, may be normal variant Prolonged QT Abnormal ECG When compared with ECG of 15-NOV-2020 07:17, Sinus rhythm has replaced Atrial fibrillation Left bundle branch block is no longer Present Confirmed by Tyler Liu ([id number]) on 11/17/2020 7:36:40 AM Referred By: [facility] Confirmed By:Yaya Liu
[2020-11-17] MEDS: CEFEPIME 1,000 MG in SYRINGE 0 ML IV SCH ×2 (08:14→20:15)
[2020-11-17] MEDS: AMIODARONE 200 MG TAB PO SCH ×2 (08:14→16:35)
[2020-11-17] MEDS: APIXABAN 2.5 MG TAB PO SCH ×2 (08:15→20:14)
[2020-11-17] MEDS: lisinopril 10 MG TAB PO SCH ×2 (08:15→20:14)
[2020-11-17] MEDS: PANTOprazole 40 MG TAB PO SCH (08:16)
[2020-11-17] MEDS: predniSONE 5 MG TAB PO SCH (08:16)
[2020-11-17] MEDS: predniSONE 1 MG TAB PO SCH (08:17)
[2020-11-17] MEDS: FLUTICASONE/VILANTEROL 200/25MCG 14 PUFFS/INHALER INH SCH (08:17)
[2020-11-17] MEDS: SACCHAROMYCES BOULARDII 250 MG CAP PO SCH (08:18)
[2020-11-17 08:59] LABS: Creatinine Clr Calc Pharmacy 71.2 ml/min; Est GFR (African American) 105.9 ml/min; Est GFR (Non-African American) 91.4 ml/min; Magnesium 1.6 mg/dl (1.8-2.4); Potassium 3.9 mmol/L (3.5-5.1)
[2020-11-17 09:00] LABS: Phosphorus 2.4 mg/dl (2.5-4.9)
--- NOTE | 2020-11-17 09:59 | Cardiology Progress Note ---
Date of Service November 17, 2020 Assessment & Plan (1) Ventricular tachycardia: (2) Wide-complex tachycardia: (3) Chest pain: (4) Cardiomyopathy: (5) CAD (coronary artery disease): ASSESSMENT/PLAN: 1. Wide complex tachycardia: She clearly has aberrant conduction. She has had periods of sinus rhythm with her typical wide complex QRS. She can easily has more frequent and rapid bursts of a wide complex rhythm. I suppose it is possible that some of these represent nonsustained VT, but the morphology is nearly identical to her known aberrancy. In any event, the treatment for her arrhythmia remains the same. We will continue amiodarone orally. We will increase her beta blockade as tolerated watching carefully for significant bradycardia. Based on the concern for ventricular tachycardia in the setting of her known cardiomyopathy, I did briefly discuss the role of a cardiac d efibrillator. She stated that given her current condition she would not be interested in a defibrillator. 2. Atrial fibrillation: No sustained episodes. Currently on Eliquis at reduced dose. 2. Chest pain: She had some chest burning yesterday for an extended period. Reviewed her EKG did reveal some minor ST segment abnormalities which are similar to prior. She presented with similar symptoms and had no elevation in her biomarkers. 4. Cardiomyopathy: Ejection fraction around 45%. Will continue metoprolol tartrate currently with a change to succinate at the time of discharge. Cont inue lisinopril. 4. CAD: Very mild nonobstructive CAD noted on 2018 cardiac catheterization. Continue beta-blockade and Eliquis. Unclear why she is not on an anti-lipid agent. Admission and Anticipated Discharge Date Admission Date: November 14, 2020 Subjective This morning patient claims to be feeling weak and tired. She had difficulty evening which involved a sensation of chest discomfort and an overall burning. She characterized this as feeling somewhat hot and diaphoretic. The symptoms did not necessarily occur together. It is unclear what resolved some of her symptoms. She was administered analgesics and did have additional doses of cardiac medications. No discomfort this morning other than her usual arthritis and pelvic pain. Review of Systems Review of Systems: Per HPI Physical Exam Physical Exam: Gen.: No acute distress. Alert and oriented. HEENT: Anicteric sclera. Cardiac: regular rhythm. Pulmonary: Normal respiratory effort Abdomen: Soft Extremities: No cyanosis. Psychiatric: Affect appears appropriate. Results & Data ([facility]) Vital Signs (Past 12 Hours) Vital Signs Temp Pulse Pulse Resp BP Pulse Ox 11/17/20 08:00 74 11/17/20 07:07 36.8 C 61 18 163/82 H 94 11/17/20 03:30 36.6 C 18 172/81 H 94 11/17/20 00:55 69 16 162/83 H 96 11/16/20 23:27 36.7 C 67 18 182/92 H 94 Laboratory Results Abnormal Lab Results 11/17/20 08:29 Sodium 128 L Potassium 3.9 Chloride 96 L Carbon Dioxide 26 Anion Gap 6.0 BUN 12 Creatinine 0.49 L Est Cr Clr Drug Dosing 71.2 Est GFR ( Amer) 105.9 Est GFR (Non-Af Amer) 91.4 BUN/Creatinine Ratio 25.0 H Glucose 156 H Calcium 8.0 L Phosphorus 2.4 L Magnesium 1.6 L PG Care Time/CCT Total # of Minutes Spent Total Time Spent with Patient: Total time spent is greater than 50% in coordination of care (as documented) at patient's floor/unit and/or counseling patient: Coding Level of Care Code 03062 Subseq Hosp Care Lvl 2 Diagnoses Ventricular tachycardia I47.2 Wide-complex tachycardia I47.2 Chest pain R07.9 Chest pain type: unspecified Cardiomyopathy I42.9 CAD (coronary artery disease) I25.10 (1) Chest pain Chest pain type: unspecified Qualified Code(s): R07.9 - Chest pain, unspecified
--- NOTE | 2020-11-17 10:59 | Hospitalist Progress Note ---
Date of Service November 17, 2020 Assessment & Plan (1) Atrial fibrillation: Amiodarone 400mg BID, will taper down to 200mg daily over time Metoprolol 50mg q8 added back amiodarone drip due to more frequent and longer runs of tachycardia in evening on 11/16, better now stop drip Eliquis 2.5mg BID for stroke prevention she has a history of GI bleed 3 years ago when taking a lot of Aleve no bleeding since that time hb is 9 but likely has anemia of chronic disease given her inflammatory state w ith RA (2) Wide-complex tachycardia: appreciate cardiology consult appears to be atrial fibrillation with aberrancy continue Amiodarone drip and plan for 400mg BID and will taper to maintenance dose several runs of tachycardia evening of 11/16, none today (3) Cardiomyopathy: global hypokinesis, EF 40% non-ischemic appears euvolemic on metoprolol 50 q 8 and lisinopril 10mg BID (4) Chest pain: had pain with tachycardia last evening troponin negative x 3 sets echo with global hypokinesis that is chronic, no regional wall motion changes add Imdur for BP control, might help with chest pain episodes (5) CAD (coronary artery disease): (6) Acute UTI: leukocytosis and UA showing infection culture with Pseudomonas species, sensitive to Cefepime, resistant to PO options Cefepime 1gm q12, today is day 2, needs 7 days would need to continue after discharge will need to ask CM if we can get this at [facility] (7) Anemia: chronic, normocytic, Hb is 9.2 likely anemia of chronic disease, inflammatory state with RA (8) GERD (gastroesophageal reflux disease): h/o gastritis and ulcer with bleed, three years ago when on Aleve no issues since stopping Aleve continue Protonix 40mg PO daily (9) Hypomagnesemia: low at 1.6, will give 2gm IV daily (10) Hypertension: BP still elevated despite Lopressor 50 q8 and lisinopril 10 BID HR is 60-70s at rest so would hesitate to increase Lopressor will add Imdur 30mg daily, follow pressures Admission and Anticipated Discharge Date Admission Date: November 14, 2020 Subjective patient feeling better this morning than she did last night, but overall not feeling great very stiff, very sore, tired of being in bed, going to try to get in a chair today for lunch breathing is stable, no current chest pain/pressure, no fever, she is passing flatus but no BM BP still consistently high, reviewed meds, will add Imdur 30mg daily with a dose this morning, long acting nitro might help the chest pain she feels d/w Dr. Liu, appreciate his input labs reviewed, Na 128, Cr 0.49, magnesium 1.6, will replace patient is depressed, the past year has been especially difficult, went to [facility] due to pelvic fracture she has not made the recovery that she had hoped for, now in bed or wheelchair, can stand and pivot but not much else she has to sell her condo which makes her upset because she had hoped to return their eventually she wishes to continue with treatment, confirms DNR/DNI status Review of Systems Review of Systems: All systems reviewed & are unremarkable except as noted in Subjective Physical Exam Constitutional: WD/WN, vitals as above + frail appearing and comfortable Neck: trachea midline, no thyromegaly Respiratory: normal respiratory effort, lungs clear to auscultation Cardiovascular: Rate/Rhythm: regular rate and regular rhythm Heart Sounds: normal S1 and normal S2; no murmur Vessels: no JVD Extremities: normal capillary refill; no edema Gastrointestinal (Abdomen): normal bowel sounds, soft, nontender, no hepatosplenomegaly Musculoskeletal: Head/Neck/Chest: normocephalic, head atraumatic and neck supple Extremities: + abnormal strength (generalized weakness); + extremities abnormal to inspection (severe arthritic changes diffusely) Skin: no rashes, warm and dry Neurologic: patellar DTR's 2+ bilat, sensation intact and PERRL, EOMI, accommodation nl, no face palsy, no dysarthria Psychiatric: Orientation: alert and oriented x 3 Affect: + flat affect Mood: + depressed mood Lymphatic: no cervical or axillary lymphadenopathy Results & Data Results & Data ([facility]) Vital Signs (Past 12 Hours) Vital Signs Temp Pulse Pulse Resp BP Pulse Ox 11/17/20 08:00 74 11/17/20 07:07 36.8 C 61 18 163/82 H 94 11/17/20 03:30 36.6 C 18 172/81 H 94 11/17/20 00:55 69 16 162/83 H 96 11/16/20 23:27 36.7 C 67 18 182/92 H 94 Laboratory Results Laboratory Results - last 24 hr 11/17/20 08:29 Sodium 128 L Potassium 3.9 Chloride 96 L Carbon Dioxide 26 Anion Gap 6.0 BUN 12 Creatinine 0.49 L Est Cr Clr Drug Dosing 71.2 Est GFR ( Amer) 105.9 Est GFR (Non-Af Amer) 91.4 BUN/Creatinine Ratio 25.0 H Glucose 156 H Calcium 8.0 L Phosphorus 2.4 L Magnesium 1.6 L Medications Administered Current Inpatient Medications Acetaminophen (Acetaminophen 325 Mg Tab) 650 mg PO Q8H PRN PRN Reason: Pain Stop: 12/14/20 15:44 Hydrocodone Bitart/Acetaminophen (Hydrocodone/Acetamophen 5/325mg Tab) 0.5 tab PO Q6H PRN PRN Reason: pain 6-10 Stop: 11/28/20 15:44 Last Admin: 11/17/20 08:10 Dose: 0.5 tab Documented by: Amiodarone HCl (Amiodarone 200 Mg Tab) 400 mg PO BIDM HOWIE Stop: 12/16/20 16:59 Last Admin: 11/17/20 08:14 Dose: 400 mg Documented by: Amitriptyline HCl (Amitriptyline Hcl 10 Mg Tab) 10 mg PO HS [facility] Stop: 12/14/20 20:59 Last Admin: 11/16/20 21:14 Dose: 10 mg Documented by: Apixaban (Apixaban 2.5 Mg Tab) 2.5 mg PO BID HOWIE Stop: 12/16/20 20:59 Last Admin: 11/17/20 08:15 Dose: 2.5 mg Documented by: Artificial Tears (Artificial Tears) 1 drops OP DAILY PRN PRN Reason: Dry Eyes Stop: 12/14/20 16:08 Calcium Carbonate (Calcium Carbonate 500 Mg Chewable Tab) 500 mg PO DAILY PRN PRN Reason: Indigestion Stop: 12/14/20 15:44 Docusate Sodium (Docusate Sodium 100 Mg Cap) 100 mg PO QAM PRN PRN Reason: Constipation Stop: 12/14/20 15:44 Fluticasone/Vilanterol (Fluticasone/Vilanterol 200/25mcg 14 Puffs/Inhaler) 1 puffs INH DAILY HOWIE Stop: 12/15/20 08:59 Last Admin: 11/17/20 08:17 Dose: 1 puffs Documented by: Cefepime HCl 1,000 mg/ Syringe 11.3 mls @ 5.5 mls/min IV Q12 [facility] Stop: 11/20/20 20:59 Last Admin: 11/17/20 08:14 Dose: 5.5 mls/min Documented by: Magnesium Sulfate/Dextrose (Magnesium Sulfate / D5w) 1 gm in 100 mls @ 50 mls/hr IV Q2H [facility] Stop: 11/17/20 15:29 Isosorbide Mononitrate (Isosorbide [place] Extended Rel 30 Mg Tabcr) 30 mg PO QAM [facility] Stop: 12/17/20 10:59 Lisinopril (Lisinopril 10 Mg Tab) 10 mg PO BID [facility] Stop: 12/14/20 20:59 Last Admin: 11/17/20 08:15 Dose: 10 mg Documented by: Metoprolol Tartrate (Metoprolol Tartrate 50 Mg Tab) 50 mg PO Q8 [facility] Stop: 12/15/20 13:59 Last Admin: 11/17/20 06:19 Dose: 50 mg Documented by: Nitroglycerin (Nitroglycerin Sl 0.4 Mg/Tab Tab) 0.4 mg SL UD PRN PRN Reason: Chest Pain Stop: 12/14/20 15:44 Oxycodone/Acetaminophen (Oxycodone/Acetaminophen 5mg/325mg Tab) 1 tab PO Q4H PRN PRN Reason: Pain Stop: 11/28/20 17:33 Last Admin: 11/16/20 04:26 Dose: 1 tab Documented by: Pantoprazole Sodium (Pantoprazole 40 Mg Tab) 40 mg [place] Stop: 12/15/20 08:59 Last Admin: 11/17/20 08:16 Dose: 40 mg Documented by: Prednisone (Prednisone 5 Mg Tab) 5 mg PO QAM [facility] Stop: 12/15/20 08:59 Last Admin: 11/17/20 08:16 Dose: 5 mg Documented by: Prednisone (Prednisone 1 Mg Tab) 2 mg PO QAM [facility] Stop: 12/15/20 08:59 Last Admin: 11/17/20 08:17 Dose: 2 mg Documented by: Saccharomyces Boulardii (Saccharomyces Boulardii 250 Mg Cap) 250 mg PO QAM [facility] Stop: 12/15/20 08:59 Last Admin: 11/17/20 08:18 Dose: 250 mg Documented by: Senna/Docusate Sodium (Docusate Sodium/Senna 50/8.6mg Tab) 1 tab PO BID@1400,2100 [facility] Stop: 12/14/20 20:59 Last Admin: 11/16/20 21:21 Dose: 1 tab Documented by: Vitamin D (Cholecalciferol 1,000 Units 25 Mcg Tab) 5,000 units PO DAILY@1400 [facility] Stop: 12/15/20 13:59 Last Admin: 11/16/20 13:40 Dose: 5,000 units Documented by: PG Care Time/CCT Total # of Minutes Spent Total Time Spent with Patient: Total time spent is greater than 50% in coordination of care (as documented) at patient's floor/unit and/or counseling patient: Coding Level of Care Code 92620 Subseq Hosp Care Lvl 3 Diagnoses Atrial fibrillation I48.91 Wide-complex tachycardia I47.2 Cardiomyopathy I42.9 Chest pain R07.9 Chest pain type: unspecified CAD (coronary artery disease) I25.10 Acute UTI N39.0 Anemia D64.9 GERD (gastroesophageal reflux disease) K21.9 Hypomagnesemia E83.42 Hypertension I10 (1) Chest pain Chest pain type: unspecified Qualified Code(s): R07.9 - Chest pain, unspecified
[2020-11-17] MEDS: ISOSORBIDE MONO EXTENDED REL 30 MG TABCR PO SCH (11:57)
[2020-11-17] MEDS: MAGNESIUM SULFATE / D5W 1 GM/100 ML BAG IV SCH ×2 (11:58→13:59)
[2020-11-17] MEDS: CHOLECALCIFEROL 1,000 UNITS 25 MCG TAB PO SCH (15:01)
[2020-11-17] MEDS: DOCUSATE SODIUM/SENNA 50/8.6MG TAB PO SCH ×2 (15:22→20:19)
[2020-11-17] MEDS: AMITRIPTYLINE HCL 10 MG TAB PO SCH (20:13)
[2020-11-17] MEDS: oxyCODONE/ACETAMINOPHEN 5mg/325mg TAB PO PRN (20:28)
[2020-11-18] MEDS: METOPROLOL TARTRATE 50 MG TAB PO SCH ×3 (05:34→22:34)
[2020-11-18] MEDS: oxyCODONE/ACETAMINOPHEN 5mg/325mg TAB PO PRN ×3 (07:44→20:43)
[2020-11-18] MEDS: APIXABAN 2.5 MG TAB PO SCH ×2 (07:46→20:42)
[2020-11-18] MEDS: FLUTICASONE/VILANTEROL 200/25MCG 14 PUFFS/INHALER INH SCH (07:47)
[2020-11-18] MEDS: AMIODARONE 200 MG TAB PO SCH ×2 (07:47→16:07)
[2020-11-18] MEDS: lisinopril 10 MG TAB PO SCH ×2 (07:48→20:42)
[2020-11-18] MEDS: ISOSORBIDE MONO EXTENDED REL 30 MG TABCR PO SCH (07:49)
[2020-11-18] MEDS: SACCHAROMYCES BOULARDII 250 MG CAP PO SCH (07:50)
[2020-11-18] MEDS: predniSONE 5 MG TAB PO SCH (07:53)
[2020-11-18] MEDS: PANTOprazole 40 MG TAB PO SCH (07:54)
[2020-11-18] MEDS: predniSONE 1 MG TAB PO SCH (07:54)
[2020-11-18] MEDS: CEFEPIME 1,000 MG in SYRINGE 0 ML IV SCH ×2 (07:59→20:42)
[2020-11-18 08:38] LABS: Hematocrit (blood only) 27.8 % (37-47); Hemoglobin 8.8 g/dL (12.0-16.0); Mean Corpuscular Hemoglobin 26.8 pg (25-34); Mean Corpuscular Hgb Conc 31.7 g/dL (32-36); Mean Corpuscular Volume 84.8 fL (80-100); Mean Platelet Volume 8.5 fL (7.4-10.4); Platelet Count 459 K/uL (130-400); RDW Coefficient of Variation 14.9 % (11.5-14.5); RDW Standard Deviation 46.1 fL (36.4-46.3); Red Blood Count 3.28 M/uL (4.2-5.4)
[2020-11-18 09:11] LABS: BUN Creatinine Ratio 29.8 (10-20); Calcium 8.5 mg/dl (8.5-10.1); Creatinine Clr Calc Pharmacy 68.4 ml/min; Est GFR (African American) 104.5 ml/min; Est GFR (Non-African American) 90.2 ml/min; Magnesium 1.9 mg/dl (1.8-2.4); Potassium 3.8 mmol/L (3.5-5.1)
--- NOTE | 2020-11-18 13:03 | Cardiology Progress Note ---
Date of Service November 18, 2020 Assessment & Plan (1) Ventricular tachycardia: (2) Wide-complex tachycardia: (3) Chest pain: (4) Cardiomyopathy: (5) CAD (coronary artery disease): ASSESSMENT/PLAN: 1. Wide complex tachycardia: She clearly has aberrant conduction. She has not had any sustained episodes of tachycardia in the past 24 hours. Again, I think that predominant rhythm is supraventricular, likely atrial fibrillation. She now seems to have a more consistent left bundle branch block even in sinus rhythm. Perhaps this is related to our antiarrhythmic use and increased dose of beta blockade. In any event, asymptomatic. She has been started on systemic anticoagulation. I think she could be safely discharged on her current dose of amiodarone, 400 mg twice daily. This can be reduced to 200 mg daily in approximately 1 week. 2. Atrial fibrillation: No sustained episodes. Currently on Eliquis at reduced dose. 2. Chest pain: No recurrence. Not likely cardiac in etiology. 4. Cardiomyopathy: Ejection fraction around 45%. I will change her dose to metoprolol succinate starting tomorrow. 4. CAD: Very mild nonobstructive CAD noted on 2018 cardiac catheterization. Continue beta-blockade and Eliquis. Unclear why she is not on an anti-lipid agent. Admission and Anticipated Discharge Date Admission Date: November 14, 2020 Subjective This afternoon the patient claims to be feeling somewhat tired. However, she has not had any recurrence of her substernal burning or discomfort. No additional episodes of feeling hot or diaphoretic. Minimal appetite. Tolerating diet. Review of Systems Review of Systems: Per HPI Physical Exam Physical Exam: Gen.: No acute distress. Alert and oriented. HEENT: Anicteric sclera. Cardiac: regular rhythm. Pulmonary: Normal respiratory effort Abdomen: Soft Extremities: No cyanosis. Psychiatric: Affect appears appropriate. Results & Data ([facility]) Vital Signs (Past 12 Hours) Vital Signs Temp Pulse Resp BP Pulse Ox 11/18/20 12:08 36.8 C 75 19 133/63 95 11/18/20 08:17 36.4 C L 69 19 148/72 H 94 11/18/20 03:00 36.5 C 56 L 20 162/70 H 95 Laboratory Results Abnormal Lab Results 11/18/20 11/18/20 08:28 08:28 WBC 13.90 H RBC 3.28 L Hgb 8.8 L Hct 27.8 L MCV 84.8 MCH 26.8 MCHC 31.7 L RDW Std Deviation 46.1 RDW Coeff of Chauncey 14.9 H Plt Count 459 H MPV 8.5 Sodium 129 L Potassium 3.8 Chloride 97 L Carbon Dioxide 25 Anion Gap 7.0 BUN 15 Creatinine 0.51 L Est Cr Clr Drug Dosing 68.4 Est GFR ( Amer) 104.5 Est GFR (Non-Af Amer) 90.2 BUN/Creatinine Ratio 29.8 H Glucose 151 H Calcium 8.5 Magnesium 1.9 PG Care Time/CCT Total # of Minutes Spent Total Time Spent with Patient: Total time spent is greater than 50% in coordination of care (as documented) at patient's floor/unit and/or counseling patient: Coding Level of Care Code 25120 Subseq Hosp Care Lvl 2 Diagnoses Ventricular tachycardia I47.2 Wide-complex tachycardia I47.2 Chest pain R07.9 Chest pain type: unspecified Cardiomyopathy I42.9 CAD (coronary artery disease) I25.10 (1) Chest pain Chest pain type: unspecified Qualified Code(s): R07.9 - Chest pain, unspecified
[2020-11-18] MEDS: CHOLECALCIFEROL 1,000 UNITS 25 MCG TAB PO SCH (13:37)
[2020-11-18] MEDS: DOCUSATE SODIUM/SENNA 50/8.6MG TAB PO SCH ×2 (16:01→20:49)
--- NOTE | 2020-11-18 19:18 | Hospitalist Progress Note ---
Date of Service November 18, 2020 Assessment & Plan (1) Atrial fibrillation: Amiodarone 400mg BID, will taper down to 200mg daily over time Metoprolol 50mg cardiology is changing to succinate in am added back amiodarone drip due to more frequent and longer runs of tachycardia in evening on 11/16, better now stop drip Eliquis 2.5mg BID for stroke prevention she has a history of GI bleed 3 years ago when taking a lot of Aleve no bleeding since that time hb is 9 but likely has anemia of chronic disease given her inflammatory state with RA (2) Wide-complex tachycardia: appreciate cardiology consult appears to be atrial fibrillation with aberrancy continue Amiodarone drip and plan for 400mg BID and will taper to maintenance dose several runs of tachycardia evening of 11/16, none today (3) Cardiomyopathy: global hypokinesis, EF 40% non-ischemic appears euvolemic on metoprolol 50 q 8 and lisinopril 10mg BID (4) Chest pain: had pain with tachycardia last evening troponin negative x 3 sets echo with global hypokinesis that is chronic, no regional wall motion changes add Imdur for BP control, might help with chest pain episodes (5) CAD (coronary artery disease): (6) Acute UTI: leukocytosis and UA showing infection culture with Pseudomonas species, sensitive to Cefepime, resistant to PO options Cefepime 1gm q12, today is day 2, needs 7 days would need to continue after discharge will need to ask CM if we can get this at [facility] (7) Anemia: chronic, normocytic, Hb is 9.2 likely anemia of chronic disease, inflammatory state with RA (8) GERD (gastroesophageal reflux disease): h/o gastritis and ulcer with bleed, three years ago when on Aleve no issues since stopping Aleve continue Protonix 40mg PO daily (9) Hypomagnesemia: low at 1.6, will give 2gm IV daily (10) Hypertension: BP still elevated despite Lopressor 50 q8 and lisinopril 10 BID HR is 60-70s at rest so would hesitate to increase Lopressor will add Imdur 30mg daily, follow pressures Admission and Anticipated Discharge Date Admission Date: November 14, 2020 Subjective pt has no problem except weakness and fatigue, she is deconditioned and has deforming Rheumatoid arthritis, Review of Systems Review of Systems: Mild distress and moderate fatigue no headache, no visual changes no speech or swallowing issues no chest pain, pressure or palpitations no shortness of breath, cough or wheezes no abdominal pain, nausea or vomiting, diarrhea or constipation no dysuria, hematuria or frequency Significant left leg pain and deformity to hands no back pain, CVA tenderness or radicular pain no bruising, bleeding or rashes no focal signs of weakness or numbness or altered sensation no complaints of anxiety or depression.. Physical Exam Physical Exam: The patient appeared well nourished and normally developed. Vital signs as documented. Head exam is normocephalic atraumatic Neck is without JVD, thyromegaly, or carotid bruits. Lungs are clear to auscultation, no focal loss of breath sounds Cardiac exam, Rhythm is regular.. No murmurs, rubs or gallops. Abdominal exam reveals normal bowel sounds, soft non tender, no masses Extremities are deformed Neurologic exam is alert and oriented, no focal loss of strength or sensation Skin is without bruises or rashes Psychologically is without concerns for anxiety or depression Results & Data Results & Data ([facility]) Vital Signs (Past 12 Hours) Vital Signs Temp Pulse Resp BP Pulse Ox 11/18/20 19:02 98.2 F 60 20 123/58 L 97 11/18/20 15:23 98.4 F 61 19 126/66 98 11/18/20 12:08 98.2 F 75 19 133/63 95 11/18/20 08:17 97.5 F L 69 19 148/72 H 94 PG Care Time/CCT Total # of Minutes Spent Total Time Spent with Patient: Total time spent is greater than 50% in coordination of care (as documented) at patient's floor/unit and/or counseling patient: Coding Level of Care Code 92274 Subseq Hosp Care Lvl 3 Diagnoses Atrial fibrillation I48.91 Wide-complex tachycardia I47.2 Cardiomyopathy I42.9 Chest pain R07.9 Chest pain type: unspecified CAD (coronary artery disease) I25.10 Acute UTI N39.0 Anemia D64.9 GERD (gastroesophageal reflux disease) K21.9 Hypomagnesemia E83.42 Hypertension I10 (1) Chest pain Chest pain type: unspecified Qualified Code(s): R07.9 - Chest pain, unspecified
[2020-11-18] MEDS: AMITRIPTYLINE HCL 10 MG TAB PO SCH (20:42)
[2020-11-19] MEDS: oxyCODONE/ACETAMINOPHEN 5mg/325mg TAB PO PRN ×4 (05:29→22:20)
[2020-11-19] MEDS: lisinopril 10 MG TAB PO SCH ×2 (08:22→19:54)
[2020-11-19] MEDS: METOPROLOL SUCC 50MG EXT REL TAB PO SCH (08:22)
[2020-11-19] MEDS: PANTOprazole 40 MG TAB PO SCH (08:22)
[2020-11-19] MEDS: AMIODARONE 200 MG TAB PO SCH ×2 (08:22→17:52)
[2020-11-19] MEDS: ISOSORBIDE MONO EXTENDED REL 30 MG TABCR PO SCH (08:23)
[2020-11-19] MEDS: predniSONE 5 MG TAB PO SCH (08:23)
[2020-11-19] MEDS: predniSONE 1 MG TAB PO SCH (08:23)
[2020-11-19] MEDS: SACCHAROMYCES BOULARDII 250 MG CAP PO SCH (08:24)
[2020-11-19] MEDS: CEFEPIME 1,000 MG in SYRINGE 0 ML IV SCH ×2 (08:25→19:54)
[2020-11-19] MEDS: FLUTICASONE/VILANTEROL 200/25MCG 14 PUFFS/INHALER INH SCH (08:25)
[2020-11-19] MEDS: APIXABAN 2.5 MG TAB PO SCH ×2 (09:17→19:54)
[2020-11-19] MEDS: DOCUSATE SODIUM 100 MG CAP PO PRN (13:24)
[2020-11-19] MEDS: CHOLECALCIFEROL 1,000 UNITS 25 MCG TAB PO SCH (13:25)
[2020-11-19] MEDS: DOCUSATE SODIUM/SENNA 50/8.6MG TAB PO SCH ×2 (13:28→19:54)
--- NOTE | 2020-11-19 18:57 | Hospitalist Progress Note ---
Date of Service November 19, 2020 Assessment & Plan (1) Atrial fibrillation: cardiology recommends Amiodarone 400mg BID, will taper down to 200mg daily over one week Metoprolol 50mg succinate Eliquis 2.5mg BID for stroke prevention she has a history of GI bleed 3 years ago when taking a lot of Aleve no bleeding since that time hb is 9 but likely has anemia of chronic disease given her inflammatory state with RA (2) Wide-complex tachycardia: appreciate cardiology consult appears to be atrial fibrillation with aberrancy continue Amiodarone drip and plan for 400mg BID and will taper to maintenance dose several runs of tachycardia evening of 11/16, none today (3) Cardiomyopathy: global hypokinesis, EF 40% non-ischemic appears euvolemic on metoprolol 50 q 8 and lisinopril 10mg BID (4) Chest pain: had pain with tachycardia last evening troponin negative x 3 sets echo with global hypokinesis that is chronic, no regional wall motion changes add Imdur for BP control, might help with chest pain episodes (5) CAD (coronary artery disease): (6) Acute UTI: leukocytosis and UA showing infection culture with Pseudomonas species, sensitive to Cefepime, resistant to PO options Cefepime 1gm q12, last dose 11/21/20 will need to ask CM if we can get this at [facility] (7) Anemia: chronic, normocytic, Hb is 9.2 likely anemia of chronic disease, inflammatory state with RA (8) GERD (gastroesophageal reflux disease): h/o gastritis and ulcer with bleed, three years ago when on Aleve no issues since stopping Aleve continue Protonix 40mg PO daily (9) Hypomagnesemia: replete (10) Hypertension: BP still elevated despite Lopressor 50 q8 and lisinopril 10 BID HR is 60-70s at rest so would hesitate to increase Lopressor will add Imdur 30mg daily, follow pressures Admission and Anticipated Discharge Date Admission Date: November 14, 2020 Subjective pt has no problem except weakness and fatigue, she is deconditioned and has deforming Rheumatoid arthritis, heart rhythm has remained stable will follow with cardiology Review of Systems Review of Systems: Mild distress and moderate fatigue no headache, no visual changes no speech or swallowing issues no chest pain, pressure or palpitations no shortness of breath, cough or wheezes no abdominal pain, nausea or vomiting, diarrhea or constipation no dysuria, hematuria or frequency Significant left leg pain and deformity to hands no back pain, CVA tenderness or radicular pain no bruising, bleeding or rashes no focal signs of weakness or numbness or altered sensation no complaints of anxiety or depression.. Physical Exam Physical Exam: The patient appeared well nourished and normally developed. Vital signs as documented. Head exam is normocephalic atraumatic Neck is without JVD, thyromegaly, or carotid bruits. Lungs are clear to auscultation, no focal loss of breath sounds Cardiac exam, Rhythm is regular.. No murmurs, rubs or gallops. Abdominal exam reveals normal bowel sounds, soft non tender, no masses Extremities are deformed Neurologic exam is alert and oriented, no focal loss of strength or sensation Skin is without bruises or rashes Psychologically is without concerns for anxiety or depression Results & Data Results & Data ([facility]) Vital Signs (Past 12 Hours) Vital Signs Temp Pulse Pulse Resp BP Pulse Ox 11/19/20 15:49 98.1 F 60 18 134/70 94 11/19/20 14:36 94 11/19/20 11:26 98.6 F 71 18 138/63 93 11/19/20 07:43 98.2 F 74 18 144/71 H 94 11/19/20 07:32 72 PG Care Time/CCT Total # of Minutes Spent Total Time Spent with Patient: Total time spent is greater than 50% in coordination of care (as documented) at patient's floor/unit and/or counseling patient: Coding Level of Care Code 28087 Subseq Hosp Care Lvl 2 Diagnoses Atrial fibrillation I48.91 Wide-complex tachycardia I47.2 Cardiomyopathy I42.9 Chest pain R07.9 Chest pain type: unspecified CAD (coronary artery disease) I25.10 Acute UTI N39.0 Anemia D64.9 GERD (gastroesophageal reflux disease) K21.9 Hypomagnesemia E83.42 Hypertension I10 (1) Chest pain Chest pain type: unspecified Qualified Code(s): R07.9 - Chest pain, unspecified
[2020-11-19] MEDS: AMITRIPTYLINE HCL 10 MG TAB PO SCH (19:54)
[2020-11-20] MEDS ORDERED: ONDANSETRON INJ 2 MG/ML 2 ML VIAL IV PRN (08:15)
[2020-11-20] MEDS ORDERED: ONDANSETRON INJ 2 MG/ML 2 ML VIAL ONE (08:18)
[2020-11-20] MEDS: oxyCODONE/ACETAMINOPHEN 5mg/325mg TAB PO PRN ×2 (08:22→20:04)
[2020-11-20] MEDS: DOCUSATE SODIUM 100 MG CAP PO PRN (08:22)
[2020-11-20] MEDS: APIXABAN 2.5 MG TAB PO SCH ×2 (08:24→20:03)
[2020-11-20] MEDS: lisinopril 10 MG TAB PO SCH ×2 (08:24→20:03)
[2020-11-20] MEDS: AMIODARONE 200 MG TAB PO SCH ×2 (08:24→17:09)
[2020-11-20] MEDS: ISOSORBIDE MONO EXTENDED REL 30 MG TABCR PO SCH (08:24)
[2020-11-20] MEDS: PANTOprazole 40 MG TAB PO SCH (08:24)
[2020-11-20] MEDS: SACCHAROMYCES BOULARDII 250 MG CAP PO SCH (08:24)
[2020-11-20] MEDS: METOPROLOL SUCC 50MG EXT REL TAB PO SCH (08:25)
[2020-11-20] MEDS: predniSONE 1 MG TAB PO SCH (08:25)
[2020-11-20] MEDS: FLUTICASONE/VILANTEROL 200/25MCG 14 PUFFS/INHALER INH SCH (08:25)
[2020-11-20] MEDS: predniSONE 5 MG TAB PO SCH (08:25)
[2020-11-20] MEDS: CEFEPIME 1,000 MG in SYRINGE 0 ML IV SCH (08:25)
[2020-11-20 08:52] LABS: Hematocrit (blood only) 29.2 % (37-47); Hemoglobin 9.1 g/dL (12.0-16.0); Mean Corpuscular Hemoglobin 26.4 pg (25-34); Mean Corpuscular Hgb Conc 31.2 g/dL (32-36); Mean Corpuscular Volume 84.6 fL (80-100); Mean Platelet Volume 8.3 fL (7.4-10.4); Platelet Count 477 K/uL (130-400); RDW Standard Deviation 46.5 fL (36.4-46.3); Red Blood Count 3.45 M/uL (4.2-5.4); White Blood Count 15.98 K/uL (4.8-10.8)
[2020-11-20 09:21] LABS: Albumin Level 2.1 gm/dl (3.4-5.0); BUN Creatinine Ratio 36.4 (10-20); Calcium 8.8 mg/dl (8.5-10.1); Creatinine Clr Calc Pharmacy 77.5 ml/min; Est GFR (African American) 108.9 ml/min
[2020-11-20 09:24] LABS: Albumin Globulin Ratio 0.5 (0.9-2); Bilirubin,Total 0.2 mg/dl (0.2-1); Globulin 3.9 gm/dl (2.5-4.0)
[2020-11-20] MEDS: HYDROCODONE/ACETAMOPHEN 5/325MG TAB PO PRN (13:47)
[2020-11-20] MEDS: CHOLECALCIFEROL 1,000 UNITS 25 MCG TAB PO SCH (13:48)
[2020-11-20] MEDS: DOCUSATE SODIUM/SENNA 50/8.6MG TAB PO SCH ×2 (13:48→20:03)
[2020-11-20] MEDS: HYDROCORTISONE SOD 50 MG in SYRINGE 0 ML IV SCH ×2 (15:08→20:03)
--- NOTE | 2020-11-20 16:58 | Hospitalist Progress Note ---
Date of Service November 20, 2020 Assessment & Plan (1) Chronic use of steroids: Plan: Seropositive rheumatoid arthritis: Seropositive RA/Sjogren's syndrome-while n.p.o., holding hydroxychloroquine concern for adrenal insufficiency, will try one day of hydrocortisone (2) Atrial fibrillation: Plan: Cardiology recommends 400 mg twice daily tapering down to 10 mg over 1 week continue metoprolol 50 mg succinate Eliquis 2.5 twice daily for stroke prevention. Hemoglobin is stable at 9 (3) Wide-complex tachycardia: Plan: Patient's wide-complex tachycardia appears to be a fibrillation with a aberrancy as mentioned above amiodarone plus beta-mar (4) Cardiomyopathy: Plan: Patient has heart failure reduced ejection fraction with EF of 40% this was nonischemic in nature she currently remains euvolemic metoprolol lisinopril continue, metoprolol succinate is 50 every 12 (5) Chest pain: Plan: Initially present since resolved negative troponin trend echocardiogram with no recent rate wall motion changes (6) CAD (coronary artery disease): Plan: Continue on risk reduction medications (7) Acute UTI: Plan: Patient had leukocytosis and a UA suggestive of infection found to be Pseudomonas species sensitive to cefepime continuing 1 g every 12 last dose at 715 (8) Anemia: Plan: The me of chronic disease normocytic in nature hemoglobin has been stable on anticoagulation (9) GERD (gastroesophageal reflux disease): Plan: Gastritis with ulcer and GI bleed 3 years ago taking Aleve none issues since continue Protonix 40 (10) Hypomagnesemia: (11) Hypertension: Plan: Continues on Lopressor change to sustained release lisinopril 10 twice daily Admission and Anticipated Discharge Date Admission Date: November 14, 2020 Subjective Patient has no significant complaints or problems he is deconditioned and has challenges feeling more tired than usual. This may be adrenal insufficiency as she is typically on prednisone and pulse dose hydrocortisone will be initiated Review of Systems Review of Systems: Mild distress, significant fatigued no headache, no visual changes no speech or swallowing issues no chest pain, pressure or palpitations no shortness of breath, cough or wheezes no abdominal pain, nausea or vomiting, diarrhea or constipation no dysuria, hematuria or frequency no focal joint pain or swelling no back pain, CVA tenderness or radicular pain no bruising, bleeding or rashes no focal signs of weakness or numbness or altered sensation no complaints of anxiety or depression.. Physical Exam Physical Exam: The patient appeared chronically ill but in no distress Vital signs as documented. Head exam is right facial droop/craniofacial abnormality on right Neck is without JVD, thyromegaly, or carotid bruits. Lungs are clear to auscultation, no focal loss of breath sounds Cardiac exam, Rhythm is regular.. No murmurs, rubs or gallops. Abdominal exam reveals normal bowel sounds, soft non tender, no masses Extremities are nonedematous and both pedal pulses are present Neurologic exam is alert and oriented right facial droop/craniofacial abnormality on right Skin is without bruises or rashes Psychologically is without concerns for anxiety or depression Results & Data Results & Data ([facility]) Vital Signs (Past 12 Hours) Vital Signs Temp Pulse Pulse Resp BP Pulse Ox 11/20/20 15:14 98.8 F 63 19 110/58 L 96 11/20/20 08:00 76 11/20/20 07:41 97.9 F 80 18 170/79 H 94 PG Care Time/CCT Total # of Minutes Spent Total Time Spent with Patient: Total time spent is greater than 50% in coordination of care (as documented) at patient's floor/unit and/or counseling patient: Coding Level of Care Code 02329 Subseq Hosp Care Lvl 3 Diagnoses Atrial fibrillation I48.91 Wide-complex tachycardia I47.2 Cardiomyopathy I42.9 Chest pain R07.9 Chest pain type: unspecified CAD (coronary artery disease) I25.10 Acute UTI N39.0 Anemia D64.9 GERD (gastroesophageal reflux disease) K21.9 Hypomagnesemia E83.42 Hypertension I10 Chronic use of steroids (1) Chest pain Chest pain type: unspecified Qualified Code(s): R07.9 - Chest pain, unspecified
[2020-11-20] MEDS: AMITRIPTYLINE HCL 10 MG TAB PO SCH (20:03)
[2020-11-21] MEDS: oxyCODONE/ACETAMINOPHEN 5mg/325mg TAB PO PRN ×2 (00:09→17:14)
[2020-11-21] MEDS: HYDROCORTISONE SOD 50 MG in SYRINGE 0 ML IV SCH (05:06)
[2020-11-21] MEDS: FLUTICASONE/VILANTEROL 200/25MCG 14 PUFFS/INHALER INH SCH (07:32)
[2020-11-21] MEDS: predniSONE 1 MG TAB PO SCH (08:54)
[2020-11-21] MEDS: HYDROCODONE/ACETAMOPHEN 5/325MG TAB PO PRN ×2 (08:54→22:32)
[2020-11-21] MEDS: predniSONE 5 MG TAB PO SCH (08:55)
[2020-11-21] MEDS: AMIODARONE 200 MG TAB PO SCH ×2 (08:55→17:14)
[2020-11-21] MEDS: METOPROLOL SUCC 50MG EXT REL TAB PO SCH (08:55)
[2020-11-21] MEDS: APIXABAN 2.5 MG TAB PO SCH ×2 (08:55→20:22)
[2020-11-21] MEDS: PANTOprazole 40 MG TAB PO SCH (08:55)
[2020-11-21] MEDS: ISOSORBIDE MONO EXTENDED REL 30 MG TABCR PO SCH (08:55)
[2020-11-21] MEDS: lisinopril 10 MG TAB PO SCH ×2 (08:55→20:23)
[2020-11-21] MEDS: SACCHAROMYCES BOULARDII 250 MG CAP PO SCH (08:55)
[2020-11-21 09:09] LABS: BUN Creatinine Ratio 44.4 (10-20); Calcium 8.7 mg/dl (8.5-10.1); Creatinine Clr Calc Pharmacy 68.4 ml/min; Est GFR (African American) 104.5 ml/min; Est GFR (Non-African American) 90.2 ml/min; Magnesium 1.9 mg/dl (1.8-2.4); Potassium 4.4 mmol/L (3.5-5.1)
[2020-11-21] MEDS ORDERED: predniSONE 20 MG TAB PO STA (10:03)
[2020-11-21] MEDS: CHOLECALCIFEROL 1,000 UNITS 25 MCG TAB PO SCH (14:48)
[2020-11-21] MEDS: DOCUSATE SODIUM/SENNA 50/8.6MG TAB PO SCH ×2 (14:53→20:22)
--- NOTE | 2020-11-21 18:19 | Hospitalist Progress Note ---
Date of Service November 21, 2020 Assessment & Plan (1) Chronic use of steroids: Plan: Seropositive rheumatoid arthritis: Seropositive RA/Sjogren's syndrome-while n.p.o., holding hydroxychloroquine while on amiodarone can restart once at lower does concern for adrenal insufficiency,improved with hydrocortisone, downgrade to po prednisone 20 mg (2) Atrial fibrillation: Plan: Cardiology recommends 400 mg twice daily tapering down to 400 mg over 1 week continue metoprolol 100 mg succinate Eliquis 2.5 twice daily for stroke prevention. Hemoglobin is stable at 9 (3) Wide-complex tachycardia: Plan: Patient's wide-complex tachycardia appears to be a fibrillation with a aberrancy as mentioned above amiodarone plus beta-mar (4) Cardiomyopathy: Plan: Patient has heart failure reduced ejection fraction with EF of 40% this was nonischemic in nature she currently remains euvolemic metoprolol lisinopril continue, metoprolol succinate is 100 daily (5) Chest pain: Plan: Initially present since resolved negative troponin trend echocardiogram with no recent rate wall motion changes (6) CAD (coronary artery disease): Plan: Continue on risk reduction medications (7) Acute UTI: Plan: Patient had leukocytosis and a UA suggestive of infection found to be Pseudomonas species sensitive to cefepime continuing 1 g every 12 last dose at 715 (8) Anemia: Plan: The me of chronic disease normocytic in nature hemoglobin has been stable on anticoagulation (9) GERD (gastroesophageal reflux disease): Plan: Gastritis with ulcer and GI bleed 3 years ago taking Aleve none issues since continue Protonix 40 (10) Hypomagnesemia: (11) Hypertension: Plan: Continues on Lopressor change to sustained release lisinopril 10 twice daily Admission and Anticipated Discharge Date Admission Date: November 14, 2020 Subjective Patient has no significant complaints or problems she is deconditioned she has improved greatly after pulse dose hydrocortisone will be down changed to po prednisone Review of Systems Review of Systems: Mild distress, significant fatigued no headache, no visual changes no speech or swallowing issues no chest pain, pressure or palpitations no shortness of breath, cough or wheezes no abdominal pain, nausea or vomiting, diarrhea or constipation no dysuria, hematuria or frequency no focal joint pain or swelling no back pain, CVA tenderness or radicular pain no bruising, bleeding or rashes no focal signs of weakness or numbness or altered sensation no complaints of anxiety or depression.. Physical Exam Physical Exam: The patient appeared chronically ill but in no distress Vital signs as documented. Head exam is right facial droop/craniofacial abnormality on right Neck is without JVD, thyromegaly, or carotid bruits. Lungs are clear to auscultation, no focal loss of breath sounds Cardiac exam, Rhythm is regular.. No murmurs, rubs or gallops. Abdominal exam reveals normal bowel sounds, soft non tender, no masses Extremities are nonedematous and both pedal pulses are present Neurologic exam is alert and oriented right facial droop/craniofacial abnormality on right Skin is without bruises or rashes Psychologically is without concerns for anxiety or depression Results & Data Results & Data ([facility]) Vital Signs (Past 12 Hours) Vital Signs Temp Pulse Pulse Resp BP Pulse Ox 11/21/20 16:05 97.9 F 62 19 159/71 H 93 11/21/20 15:00 61 11/21/20 11:43 98.1 F 72 18 143/64 H 91 11/21/20 08:51 71 155/78 H 11/21/20 07:12 98.4 F 66 18 158/75 H 94 11/21/20 07:00 66 PG Care Time/CCT Total # of Minutes Spent Total Time Spent with Patient: Total time spent is greater than 50% in coordination of care (as documented) at patient's floor/unit and/or counseling patient: Coding Level of Care Code 81916 Subseq Hosp Care Lvl 2 Diagnoses Chronic use of steroids Atrial fibrillation I48.91 Wide-complex tachycardia I47.2 Cardiomyopathy I42.9 Chest pain R07.9 Chest pain type: unspecified CAD (coronary artery disease) I25.10 Acute UTI N39.0 Anemia D64.9 GERD (gastroesophageal reflux disease) K21.9 Hypomagnesemia E83.42 Hypertension I10 (1) Chest pain Chest pain type: unspecified Qualified Code(s): R07.9 - Chest pain, unspecified
[2020-11-21] MEDS: AMITRIPTYLINE HCL 10 MG TAB PO SCH (20:23)
[2020-11-22] MEDS: oxyCODONE/ACETAMINOPHEN 5mg/325mg TAB PO PRN (04:57)
[2020-11-22] MEDS: AMIODARONE 200 MG TAB PO SCH (08:03)
[2020-11-22] MEDS: PANTOprazole 40 MG TAB PO SCH (08:03)
[2020-11-22] MEDS: METOPROLOL SUCC 50MG EXT REL TAB PO SCH (08:03)
[2020-11-22] MEDS: SACCHAROMYCES BOULARDII 250 MG CAP PO SCH (08:03)
[2020-11-22] MEDS: lisinopril 10 MG TAB PO SCH (08:03)
[2020-11-22] MEDS: ISOSORBIDE MONO EXTENDED REL 30 MG TABCR PO SCH (08:03)
[2020-11-22] MEDS: FLUTICASONE/VILANTEROL 200/25MCG 14 PUFFS/INHALER INH SCH (08:04)
[2020-11-22] MEDS: APIXABAN 2.5 MG TAB PO SCH (08:04)
[2020-11-22] MEDS ORDERED: predniSONE 20 MG TAB PO SCH (09:00)
--- NOTE | 2020-11-22 18:31 | Discharge Summary ---
Date of Service November 22, 2020 Admission HPI Per Admitting Provider 80 y/o F Hx HTN, anemia, COPD, RA, systolic CHF. She presented to the ER from a nursing facility due to intermittent chest pain. The pain is central, nonradiating. She has not had SOB, lightheadedness or diaphoresis. While in the ER she initially had short runs of VT and then developed mostly sustained VT although her vitals remained stable, and this did not appear to elicit chest pain. Initial labs are notable for stable anemia and thrombocytosis. A UA is equivocal. CXR demonstrates small BL effusions and possibly BL infiltrates as well. The pt was evaluated by cardiology in the ER and placed on amiodarone. She will be transferred to the ICU. 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 Lungs are clear to auscultation and appear unlabored Cardiac exam, Rhythm is regular.. No murmurs, rubs or gallops. Abdominal exam reveals normal bowel sounds, soft non tender, no masses Extremities are nonedematous and both pedal pulses are normal. Neurologic exam is alert and oriented, right craniofacial changes Skin is without bruises or rashes Psychologically is without concerns for anxiety or depression. Discharge Data Allergies Allergy/AdvReac Type Severity Reaction Status Date / Time ciprofloxacin Allergy Severe PASSED Verified 11/14/20 10:02 OUT, SEVERE RXN PER PATIENT nut - unspecified Allergy Intermediate HIVES Verified 11/14/20 10:02 banana Allergy Mild RASH Verified 11/14/20 10:02 latex Allergy Mild RASH Verified 11/14/20 10:02 moxifloxacin Allergy Mild PAIN IN Verified 11/14/20 10:02 HEEL nickel Allergy Mild RASH ON Verified 11/14/20 10:02 EARS WITH EARRINGS WITH NICKEL Sulfa (Sulfonamide Allergy Mild Rash Verified 11/14/20 10:02 Antibiotics) fluconazole AdvReac Intermediate TACHYCARDIA, Verified 11/14/20 10:02 HAIR LOSS adhesive AdvReac Mild CONTACT Verified 11/14/20 10:02 DERMATITIS codeine AdvReac Mild DIZZINESS Verified 11/14/20 10:02 hydrocodone AdvReac Dizziness Verified 11/14/20 10:02 Consultations 11/14/20 12:50 ED Decision to Admit Stat 11/14/20 15:45 Consult Quill Machine Operator Routine 11/14/20 16:17 Consult Cardiology Stat Hospital Course (1) Chronic use of steroids: Seropositive rheumatoid arthritis: Seropositive RA/Sjogren's syndrome-while n.p.o., holding hydroxychloroq uine while on amiodarone can restart once at lower does concern for adrenal insufficiency,improved with hydrocortisone, downgrade to po prednisone 20 mg (2) Atrial fibrillation: Cardiology recommends 400 mg twice daily tapering down to 400 mg over 1 week continue metoprolol 100 mg succinate Eliquis 2.5 twice daily for stroke prevention. Hemoglobin is stable at 9 (3) Wide-complex tachycardia: Patient's wide-complex tachycardia appears to be a fibrillation with a aberrancy as mentioned above amiodarone plus beta-mar (4) Cardiomyopathy: Patient has heart failure reduced ejection fraction with EF of 40% this was nonischemic in nature she currently remains euvolemic metoprolol lisinopril continue, metoprolol succinate is 100 daily (5) Chest pain: Initially present since resolved negative troponin trend echocardiogram with no recent rate wall motion changes (6) CAD (coronary artery disease): Continue on risk reduction medications (7) Acute UTI: Patient had leukocytosis and a UA suggestive of infection found to be Pseudomonas species sensitive to cefepime continuing 1 g every 12 last dose at 715 (8) Anemia: The me of chronic disease normocytic in nature hemoglobin has been stable on anticoagulation (9) GERD (gastroesophageal reflux disease): Gastritis with ulcer and GI bleed 3 years ago taking Aleve none issues since continue Protonix 40 (10) Hypomagnesemia: (11) Hypertension: Continues on Lopressor change to sustained release and lisinopril Total Time Total Time Spent Total Time Spent (In Minutes): It required greater than 30 minutes to prepare this patient for discharge Discharge Plan Discharge Items Patient Disposition: Personal Assisted Reason For Visit: [place] Discharge Diagnosis: atrial fibrillation with aberancy Activity: Per Instructions section Activity Comment: gradually increase activity Non-emergency contact: Primary Care Provider and Managed Security Sales Consultant Call non-emergency contact if: you have any medication questions and your symptoms worsen Follow-up/Referrals: Teofilo Liu MD [Physician] - 12/10/20 3:15 pm [facility] [Primary Care Provider] - Diet: Heart Healthy Addtl Attending Provider Instructions: please take prednisone 20 mg a day for additional 3 days then resume your home prednisonse dose amiodarone 400 mg twice a day for a week then 400 mg once a day you have had some additional medicines added with increase metoprolol dose and isosorbide Pending Studies at Discharge: No Stand-Alone Forms: My [employer], Smoking Cessation Skilled Items Patient informed of condition?: Yes DNR: Yes Discharge Level of Care: Other Communicable Disease: No Discharge Prognosis: Stable Lines: None Urinary Catheter: No Medications and DC Order Prescriptions: New amiodarone 200 mg Tablet 400 mg PO UD Qty: 45 RF: 0 metoprolol succinate 50 mg Tablet Extended Release 24 Hr 100 mg PO QAM Qty: 30 RF: 0 prednisone 20 mg Tablet 20 mg PO DAILY Qty: 3 RF: 0 isosorbide mononitrate 30 mg Tablet Extended Release 24 Hr 30 mg PO QAM Qty: 30 RF: 0 oxycodone-acetaminophen [Percocet] 5-325 mg Tablet 1 tab PO Q4H PRN (Reason: pain) Qty: 20 RF: 0 Continued hydrocodone-acetaminophen 5-325 mg tablet 0.5 tab PO Q6H PRN (Reason: pain) Qty: 60 RF: 0 oxycodone 5 mg tablet 5 mg PO Q4H PRN (Reason: Pain) Qty: 120 RF: 0 prednisone 1 mg tablet 2 mg PO QAM RF: 0 pantoprazole [Protonix] 20 mg tablet,delayed release (DR/EC) 20 mg PO QAM RF: 0 cholecalciferol (vitamin D3) 125 mcg (5,000 unit) capsule 5,000 unit PO QPM RF: 0 hydroxychloroquine [Plaquenil] 200 mg Tablet 200 mg PO QAM RF: 0 acetaminophen [Tylenol] 325 mg Tablet 650 mg PO Q8H MDD 3 GRAMS/24 HOURS PRN (Reason: Pain) RF: 0 sennosides-docusate sodium 8.6-50 mg Tablet 1 tab-cap PO BID RF: 0 prednisone 5 mg tablet 5 mg PO QAM RF: 0 lisinopril 10 mg tablet 10 mg PO BID RF: 0 calcium carbonate 500 mg calcium (1,250 mg) Tablet,Chewable 500 mg PO DAILY PRN (Reason: Indigestion) RF: 0 multivitamin with minerals Tablet 1 tab PO QAM RF: 0 omega-3 fatty acids-fish oil 684-1,200 mg Capsule,Delayed Release(Dr/Ec) 1 cap PO QPM RF: 0 Saccharomyces boulardii [Florastor] 250 mg Capsule 250 mg PO QAM RF: 0 Artificial Tears (cmc) 1 % Drops 1 drp OPB DAILY PRN (Reason: Dry Eyes) RF: 0 tramadol 50 mg tablet 50 mg PO Q8H PRN (Reason: pain) RF: 0 amitriptyline 10 mg tablet 10 mg PO HS RF: 0 budesonide-formoterol [Symbicort] 160-4.5 mcg/actuation HFA aerosol inhaler 2 puff Inhalation BID17 RF: 0 docusate sodium 100 mg capsule 100 mg PO QAM PRN (Reason: Constipation) RF: 0 Discontinued metoprolol succinate 50 mg tablet extended release 24 hr 50 mg PO Q12H RF: 0 Discharge Orders: Discharge Order (Routine); Ordered 11/22/20 Ordered By: Teodoro Marie Admission Data Admit Date/Time: 11/14/20 14:25 Attending Provider: Teodoro Marie Admit Provider: Mike Dangelo Primary Care Provider: Evelia [email or web address] Other Providers: Mike Dangelo ; Neo Lara ; Alex Howell ; Tyrone Sharma ; Alexis Espino ; Collin Orellana ; Sanjeev Maki ; Yolande Garcia ; Prudencio Frederick Other Interventions: Discharge Summary Assessment (RN) Last Done: 11/22/20 12:08 Coding Level of Care Code D/C DAY MANAGEMENT >30 MINS Diagnoses Chronic use of steroids Atrial fibrillation I48.91 Wide-complex tachycardia I47.2 Cardiomyopathy I42.9 Chest pain R07.9 Chest pain type: unspecified CAD (coronary artery disease) I25.10 Acute UTI N39.0 Anemia D64.9 GERD (gastroesophageal reflux disease) K21.9 Hypomagnesemia E83.42 Hypertension I10
== END 2020-11-22 12:51 | disposition home or self-care (01) | DRG 309 ==
LOC: ED 08:27 → SUATTDRO 14:25 → 1E 14:25 → 2S 11-15 16:25 → 2W 11-18 22:17

== ENCOUNTER 2020-12-08 07:19 | Inpatient (IN) ==
--- NOTE | 2020-12-08 07:42 | Emergency Department Note ---
History of Present Illness General Chief Complaint: Shortness of Breath/Dyspnea Time Seen by Provider: 12/08/20 07:27 Source: patient, EMS and RN notes reviewed History of Present Illness Provider Complaint: shortness of breath Onset (ago): week(s) (1) Consistency/Duration: + constant and + progressively worsening Relieved By: + oxygen Exacerbated By: + coughing Context: + medication noncompliance (detention has not been given the patient's Symbicort and oxygen); no recent travel, no smoke/fume exposure, no trauma/injury or no CO exposure Associated symptoms: + cough; no chest pain, no pain with inspiration, no fever, no wheezing, no sputum production, no orthopnea, no lower extremity pain, no polyuria, no paresthesias, no palpitations, no hemoptysis, no diaphoresis, no nausea/vomiting, no syncope, no abdominal pain, no sense of impending doom, no chest congestion, no dizziness or no lightheadedness Treatment prior to arrival: oxygen HPI Narrative: Per nurse who spoke with EMS the patient has not been receiving her Symbicort as instructed at the correction. They also state that they have not order for oxygen usage at the correction however the patient correction at [place] did not have an oxygen concentrator start the patient on oxygen so they called the emergency department and sent her here via EMS. Home Medications Medication Instructions Recorded Confirmed Type prednisone 1 mg tablet 2 mg PO QAM tab 08/20/20 12/08/20 History acetaminophen 325 mg tablet 650 mg PO Q8H PRN MDD 3 GRAMS/24 09/13/20 12/08/20 History (Tylenol) HOURS calcium carbonate 500 mg calcium 500 mg PO DAILY PRN 09/13/20 12/08/20 History (1,250 mg) chewable tablet prednisone 5 mg tablet 5 mg PO QAM 09/13/20 12/08/20 History sennosides 8.6 mg-docusate sodium 1 tab-cap PO BID 09/13/20 12/08/20 History 50 mg tablet Saccharomyces boulardii 250 mg 250 mg PO QAM 10/15/20 12/08/20 History capsule (Florastor) amitriptyline 10 mg tablet 10 mg PO HS 10/15/20 12/08/20 History budesonide-formoterol HFA 160 2 puff INHALATION BID17 10/15/20 12/08/20 History mcg-4.5 mcg/actuation aerosol inhaler (Symbicort) carboxymethylcellulose sodium 1 % 1 drp OPB DAILY PRN 10/15/20 12/08/20 History eye drops (Artificial Tears (carboxymethylcellulose)) hydrocodone 5 mg-acetaminophen 325 0.5 tab PO Q6H PRN #60 tab 11/11/20 12/08/20 Rx mg tablet docusate sodium 100 mg capsule 100 mg PO QAM PRN 11/14/20 12/08/20 History oxycodone 5 mg tablet 5 mg PO Q4H PRN #120 tab 11/14/20 12/08/20 Rx isosorbide mononitrate 30 mg 30 mg PO QAM #30 tab 11/21/20 12/08/20 Rx tablet,extended release 24 hr metoprolol succinate 50 mg 100 mg PO QAM #30 tab 11/21/20 12/08/20 Rx tablet,extended release 24 hr apixaban 2.5 mg tablet (Eliquis) 2.5 mg PO BID 11/28/20 12/08/20 History amiodarone 200 mg tablet 400 mg PO QAM 12/08/20 12/08/20 History hydrochlorothiazide 25 mg tablet 25 mg PO QAM 12/08/20 12/08/20 History nitroglycerin 0.4 mg sublingual 0.4 mg SUBLINGUAL Q5M PRN 12/08/20 12/08/20 History tablet pantoprazole 40 mg tablet,delayed 40 mg PO QAM 12/08/20 12/08/20 History release Allergies Allergy/AdvReac Type Severity Reaction Status Date / Time ciprofloxacin Allergy Severe PASSED Verified 12/08/20 08:19 OUT, SEVERE RXN PER PATIENT nut - unspecified Allergy Intermediate HIVES Verified 12/08/20 08:19 banana Allergy Mild RASH Verified 12/08/20 08:19 latex Allergy Mild RASH Verified 12/08/20 08:19 moxifloxacin Allergy Mild PAIN IN Verified 12/08/20 08:19 HEEL nickel Allergy Mild RASH ON Verified 12/08/20 08:19 EARS WITH EARRINGS WITH NICKEL Sulfa (Sulfonamide Allergy Mild Rash Verified 12/08/20 08:19 Antibiotics) fluconazole AdvReac Intermediate TACHYCARDIA, Verified 12/08/20 08:19 HAIR LOSS adhesive AdvReac Mild CONTACT Verified 12/08/20 08:19 DERMATITIS codeine AdvReac Mild DIZZINESS Verified 12/08/20 08:19 hydrocodone AdvReac Dizziness Verified 12/08/20 08:19 Past Med/Surg History Medical History Acute diverticulitis Asthma Atopic dermatitis Bronchitis CAD (coronary artery disease) Diverticula of colon Duodenal ulcer Eczema 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 Stroke like symptoms. History of intestinal obstruction HTN (hypertension) Hx of lower gastrointestinal bleeding 2019-RESOLVED Incisional hernia without obstruction or gangrene Intraoperative ureteral injury PT DENIES Long-term use of hydroxychloroquine Multiple pulmonary nodules DUE TO RA Osteoporosis Peptic ulcer disease Seropositive rheumatoid arthritis Sjogrens syndrome SOB (shortness of breath) on exertion Ventricular tachycardia Surgical History History of colonoscopy History of colostomy History of colostomy reversal ETT#7, Glidescope #3, Grade 1 View - attempt x 1, atraumatic History of esophagogastroduodenoscopy (EGD) History of facial surgery History of partial colectomy History of tonsillectomy and adenoidectomy History of total knee arthroplasty RIGHT Hx of right heart catheterization 2018 [facility] > NO STENTS Status post right foot surgery 2012 AT [place] Ventral hernia with bowel obstruction Family History Mother Asthma Heart disease Renal failure Brother Heart disease Father Pneumonia Other History of section Ventral hernia with bowel obstruction Social History Smoking Status: Former smoker Years Smoked: 2; Second Hand Exposure: No; Do You Dip or Chew Tobacco: No; Tobacco Cessation Education Requested by Patient: No Hx Alcohol Use: No Hx Substance Use: No Preferred Language: Wolof Communication Ability: Effective Visual Impairment: No Limitations Chief Of Party Required: No Beliefs That Will Affect Care: None marital status: / Current Living Situation: Personal Care Facility current occupational status: retired Feels Safe at Home: Yes Safety Concerns: Feels Safe At This Time Seatbelt Use: always Assistive Devices: Oxygen - Continuous Review of Systems A total of 10 systems reviewed and were otherwise negative Physical Exam Vital Signs: Vital Signs - 24 hr 12/08/20 07:29 12/08/20 07:36 12/08/20 08:30 Temperature 36.6 C Temperature Source Oral Pulse Rate 76 Pulse Rate [Left F holly] 72 Pulse Rhythm Regular Pulse Rhythm [Left Finger] Regular Pulse Strength Normal Pulse Strength [Le ft Finger] Normal Respiratory Rate 20 25 H Respiratory Effort / Characteristics Labored Non-Labored Sponta neous Respiratory Depth Normal Respiratory Patter n Regular Blood Pressure 179/87 H Blood Pressure [Le ft Arm] 162/82 H Blood Pressure Lynda n 117 Blood Pressure Lynda n [Left Arm] 108 Blood Pressure Pos ition Sitting Blood Pressure Pos ition [Left Arm] Sitting Pulse Oximetry 87 L 87 L 96 Oxygen Delivery Me thod Room Air Room Air Nasal Cannula Oxygen Flow Rate 2 Sepsis Recent Feve r Within 48 Hours No Sepsis New/Unexpla ined Change in [place] Status No Sepsis Action Take n by Nursing No Action Required Oxygen Flow Rate - Titration 2 Pulse Oximetry Pos t Tiitration 96 12/08/20 10:07 Temperature Temperature Source Pulse Rate Pulse Rate [Left F holly] 68 Pulse Rhythm Pulse Rhythm [Left Finger] Regular Pulse Strength Pulse Strength [Le ft Finger] Normal Respiratory Rate 20 Respiratory Effort / Characteristics Non-Labored Sponta neous Respiratory Depth Normal Respiratory Patter n Regular Blood Pressure Blood Pressure [Le ft Arm] 158/78 H Blood Pressure Lynda n Blood Pressure Lynda n [Left Arm] 104 Blood Pressure Pos ition Blood Pressure Pos ition [Left Arm] Sitting Pulse Oximetry 97 Oxygen Delivery Me thod Nasal Cannula Oxygen Flow Rate 2 Sepsis Recent Feve r Within 48 Hours Sepsis New/Unexpla ined Change in [place] Status Sepsis Action Take n by Nursing Oxygen Flow Rate - Titration Pulse Oximetry Pos t Tiitration Physical Exam: Physical Exam GENERAL: She is oriented to person, place, and time. She appears well-developed and well-nourished. She does not appear distressed. HENT: Exam performed. -Head: Normocephalic and atraumatic. -Right Ear: External ear normal. No mastoid tenderness. -Left Ear: External ear normal. No mastoid tenderness. -Mouth/Throat: The oropharynx is clear and moist. No trismus in the jaw. No dental abscesses or uvula swelling. No oropharyngeal exudate or tonsillar abscesses. EYES: Conjunctivae and EOM are normal. Pupils are equal, round, and reactive to light. Right eye exhibits no discharge. Left eye exhibits no discharge. No scl eral icterus. NECK: Normal range of motion. Neck supple. No JVD present. No spinous process tenderness present. No carotid bruit present. No rigidity. No tracheal deviation and normal range of motion present. No Brudzinski's sign and no Kernig's sign noted. CV: Normal rate, regular rhythm, normal heart sounds and intact distal pulses. There is no peripheral edema. Palpable radial pulses bue. PULM/CHEST: Rales bilaterally. -Chest Wall: She exhibits no tenderness. ABD: The abdomen is soft. Bowel sounds are normal. She has no distension. No mass is present. There is no tenderness. There is no rebound, no guarding, no Sanders's sign and no tenderness at McBurney's point. Rovsig negative MUSC/SKEL: Normal range of motion. There is no peripheral edema, tenderness or deformity. LYMPH: No cervical adenopathy. NEURO: She is alert and oriented to person, place, and time. She has normal strength. Right-sided facial palsy. SKIN: Skin is warm and dry. She is not diaphoretic. PSYCH: She has a normal mood and affect. Behavior is normal. Judgment and thought content normal. Course Course 726: The patient was evaluated in room B4. A complete history and physical exam was performed Cardiac monitoring: An order was placed for continuous cardiac monitoring. The monitor shows a rate of 80 with sinus rhythm Patient had a oxygen saturation of 87% on room air, patient placed on 2 L oxygen via nasal cannula which improved her oxygen saturation. EMR reviewed. Patient is a DNR/DNI. Patient was recently admitted to [facility] on November 14, 2020 To November 22. Patient was initially seen for chest discomfort. During her emergency department stay on November 14, the patient went into a V. tach and had to be started on amiodarone which converted her back in sinus rhythm. During her hospital mission the patient was started on Eliquis. She was evaluated by cardiology and found to have ejection fraction of 40%. The patient biology faculty member thought that her underlying arrhythmia was most likely supraventricular most likely due to atrial fibrillation. Patient also has a history of small bowel obstruction. Patient's previous EKGs show no history of left bundle branch block. 0925: Vital signs stable on supplemental oxygen via nasal cannula. Labs show leukocytosis of 14.96. Patient has chronic leukocytosis. Patient is afebrile. Hemoglobin stable at 8.4. VBG within normal limits. Troponin negative. proBNP 20,762. Chest x-ray does show cardiomegaly with cephalization. Patient be get treated with Lasix 40 mg IV push. Given the patient's new left bundle branch block and CHF, the patient will be admitted to the hospital. Discussed the case with Dr. Núñez [facility] hospitalist will evaluate the patient for admission. Administered Medications Oxycodone HCl (Oxycodone Hcl Ir 5 Mg Tab (Immediate Release)) 5 mg PO Q4H PRN PRN Reason: Pain Stop: 12/22/20 11:50 Last Admin: 12/08/20 12:51 Dose: 5 mg Documented by: [id number] Discontinued Medications Furosemide (Furosemide 40 Mg/4 Ml Vial) 40 mg IV NOW STA Stop: 12/08/20 08:57 Last Admin: 12/08/20 09:01 Dose: 40 mg Documented by: [id number] Magnesium Sulfate/Dextrose (Magnesium Sulfate / D5w) 1 gm in 100 mls @ 50 ml s/hr IV Q2H STA Stop: 12/08/20 11:39 Last Infusion: 12/08/20 12:14 Dose: 0 mls/hr Documented by: [id number] Admin: 12/08/20 09:52 Dose: 50 mls/hr Documented by: [id number] Medical Decision Making Laboratory Data Result diagrams: 12/08/20 07:49 12/08/20 07:49 Lab Results 12/08/20 12/08/20 12/08/20 Range/Units 07:49 07:49 07:49 WBC 14.96 H (4.8-10.8) K/uL RBC 3.18 L (4.2-5.4) M/uL Hgb 8.4 L (12.0-16.0) g/dL Hct 27.1 L (37-47) % MCV 85.2 (80-100) fL MCH 26.4 (25-34) pg MCHC 31.0 L (32-36) g/dL RDW Std Deviation 51.1 H (36.4-46.3) fL RDW Coeff of Chauncey 16.3 H (11.5-14.5) % Plt Count 432 H (130-400) K/uL MPV 9.0 (7.4-10.4) fL Immature Gran % (Auto) 0.5 % Neut % (Auto) 90.1 % Lymph % (Auto) 5.1 % Cherry % (Auto) 3.2 % Eos % (Auto) 1.0 % Baso % (Auto) 0.1 % Neut # (Auto) 13.48 H (1.4-6.5) K/uL Lymph # (Auto) 0.77 L (1.2-3.4) K/uL Cherry # (Auto) 0.48 (0.11-0.59) K/uL Eos # (Auto) 0.15 (0-0.5) K/uL Baso # (Auto) 0.01 (0-0.2) K/uL Immature Gran # (Auto) 0.07 H (0.00-0.02) K/uL PT 11.1 (9.0-12.0) Seconds INR 1.1 (0.9-1.1) APTT 26.5 (21.0-31.0) Seconds PTT Ratio 1.0 VBG pH (7.36-7.41) VBG pCO2 (38-50) mmHg VBG pO2 mmHg VBG HCO3 mmol/L VBG O2 Saturation % VBG Base Excess mEq/L Barometric Pressure mm/Hg Sodium 133 L (136-145) mmol/L Potassium 3.5 (3.5-5.1) mmol/L Chloride 98 (98-107) mmol/L Carbon Dioxide 28 (21-32) mmol/L Anion Gap 7.0 (3-11) BUN 23 H (7-18) mg/dl Creatinine 0.46 L (0.6-1.2) mg/dl Est Cr Clr Drug Dosing 82.8 ml/min Est GFR ( Amer) 108.1 ml/min Est GFR (Non-Af Amer) 93.3 ml/min BUN/Creatinine Ratio 48.9 H (10-20) Glucose 113 H (70-99) mg/dl Calcium 8.6 (8.5-10.1) mg/dl Magnesium 1.6 L (1.8-2.4) mg/dl Troponin I < 0.015 (0-0.045) ng/ml NT-Pro-B Natriuret Pep 92657 H (0-1800) pg/ml Lipase 41 L (73-393) U/L COVID-19 Eval Order SARS-CoV-2 (PCR) (Negative) 12/08/20 12/08/20 12/08/20 Range/Units 07:52 07:52 07:53 WBC (4.8-10.8) K/uL RBC (4.2-5.4) M/uL Hgb (12.0-16.0) g/dL Hct (37-47) % MCV (80-100) fL MCH (25-34) pg MCHC (32-36) g/dL RDW Std Deviation (36.4-46.3) fL RDW Coeff of Chauncey (11.5-14.5) % Plt Count (130-400) K/uL MPV (7.4-10.4) fL Immature Gran % (Auto) % Neut % (Auto) % Lymph % (Auto) % Cherry % (Auto) % Eos % (Auto) % Baso % (Auto) % Neut # (Auto) (1.4-6.5) K/uL Lymph # (Auto) (1.2-3.4) K/uL Cherry # (Auto) (0.11-0.59) K/uL Eos # (Auto) (0-0.5) K/uL Baso # (Auto) (0-0.2) K/uL Immature Gran # (Auto) (0.00-0.02) K/uL PT (9.0-12.0) Seconds INR (0.9-1.1) APTT (21.0-31.0) Seconds PTT Ratio VBG pH 7.47 H (7.36-7.41) VBG pCO2 39 (38-50) mmHg VBG pO2 64 mmHg VBG HCO3 28 mmol/L VBG O2 Saturation 91.7 % VBG Base Excess 3.7 mEq/L Barometric Pressure 729.6 mm/Hg Sodium (136-145) mmol/L Potassium (3.5-5.1) mmol/L Chloride (98-107) mmol/L Carbon Dioxide (21-32) mmol/L Anion Gap (3-11) BUN (7-18) mg/dl Creatinine (0.6-1.2) mg/dl Est Cr Clr Drug Dosing ml/min Est GFR ( Amer) ml/min Est GFR (Non-Af Amer) ml/min BUN/Creatinine Ratio (10-20) Glucose (70-99) mg/dl Calcium (8.5-10.1) mg/dl Magnesium (1.8-2.4) mg/dl Troponin I (0-0.045) ng/ml NT-Pro-B Natriuret Pep (0-1800) pg/ml Lipase (73-393) U/L COVID-19 Eval Order Covid19 at [facility] SARS-CoV-2 (PCR) NEGATIVE (Negative) Imaging Data Radiologist's Impression: Chest X-Ray 12/08/20 07:28 XR chest 1V portable HISTORY: 80 years-old Female Chest Pain acute atypical chest pain COMPARISON: Chest radiograph 11/14/2020 TECHNIQUE: Portable AP view of the chest FINDINGS: Cardiac silhouette is enlarged. Layering pleural effusions with moderate bibasilar consolidation. Pulmonary vascular congestion with interstitial coarsening. No pneumothorax. Unchanged pleural thickening of the lung apices. Degenerative changes of the shoulders and spine. IMPRESSION: 1. Cardiomegaly with pulmonary vascular congestion and interstitial coarsening suggestive of pulmonary edema. 2. Layering pleural effusions with moderate bibasilar consolidation. ACT 112: Negative or not required by law. The above report was generated using voice recognition software. It may contain grammatical, syntax or spelling errors. Electronically signed by: Abhinav Torres M.D. 12/08/2020 7:45 AM ECG Data Interpretation: EKG shows sinus rhythm with rate of 76. DE 170 QRS 194 QTC 546. Left bundle branch block present. sgarbosa negative. When compared to the initial EKG on her visit from November 14, 2020 there is no left bundle branch block present. [facility] Narrative 0727: The patient was evaluated in room B4. A complete history and physical exam was performed Cardiac monitoring: An order was placed for continuous cardiac monitoring. The monitor shows a rate of 80 with sinus rhythm Patient had a oxygen saturation of 87% on room air, patient placed on 2 L oxygen via nasal cannula which improved her oxygen saturation. EMR reviewed. Patient is a DNR/DNI. Patient was recently admitted to [facility] on November 14, 2020 To November 22. Patient was initially seen for chest discomfort. During her emergency department stay on November 14, the patient went into a V. tach and had to be started on amiodarone which converted her back in sinus rhythm. During her hospital mission the patient was started on Eliquis. She was evaluated by cardiology and found to have ejection fraction of 40%. The patient biology faculty member thought that her underlying arrhythmia was most likely supraventricular most likely due to atrial fibrillation. Patient also has a history of small bowel obstruction. Patient's previous EKGs show no history of left bundle branch block. 0925: Vital signs stable on supplemental oxygen via nasal cannula. Labs show leukocytosis of 14.96. Patient has chronic leukocytosis. Patient is afebrile. Hemoglobin stable at 8.4. VBG within normal limits. Troponin negative. proBNP 20,762. Chest x-ray does show cardiomegaly with cephalization. Patient be get treated with Lasix 40 mg IV push. Given the patient's new left bundle branch block and CHF, the patient will be admitted to the hospital. Discussed the case with Dr. Núñez [facility] hospitalist will evaluate the patient for admission. Impression & Plan CHF (congestive heart failure), LBBB (left bundle branch block) Discharge Plan Visit Data Chief Complaint: Shortness of Breath/Dyspnea ED Provider: Morales Grimm Discharge Problem: CHF (congestive heart failure), LBBB (left bundle branch block) Patient Disposition: Admitted As Inpatient Discharge Instructions Interventions: ED Discharge Assessment Last Done: 12/08/20 10:49
--- NOTE | 2020-12-08 07:46 | XRay Report ---
XR chest 1V portable HISTORY: 80 years-old Female Chest Pain acute atypical chest pain COMPARISON: Chest radiograph 11/14/2020 TECHNIQUE: Portable AP view of the chest FINDINGS: Cardiac silhouette is enlarged. Layering pleural effusions with moderate bibasilar consolidation. Pul monary vascular congestion with interstitial coarsening. No pneumothorax. Unchanged pleural thickenin g of the lung apices. Degenerative changes of the shoulders and spine. IMPRESSION: 1. Cardiomegaly with pulmonary vascular congestion and interstitial coarsening suggestive of pulmonar y edema. 2. Layering pleural effusions with moderate bibasilar consolidation. ACT 112: Negative or not required by law. The above report was generated using voice recognition software. It may contain grammatical, syntax o r spelling errors. Electronically signed by: Abhinav Torres M.D. 12/08/2020 7:45 AM
[2020-12-08 08:07] LABS: Base Excess VBG 3.7 mEq/L; Oxygen Saturation VBG 91.7 %; pH VBG 7.47 (7.36-7.41)
[2020-12-08 08:08] LABS: Basophils # (auto) 0.01 K/uL (0-0.2); Basophils % (auto) 0.1 %; Eosinophils # (auto) 0.15 K/uL (0-0.5); Hematocrit (blood only) 27.1 % (37-47); Hemoglobin 8.4 g/dL (12.0-16.0); Immature Granulocytes # (auto) 0.07 K/uL (0.00-0.02); Immature Granulocytes % (auto) 0.5 %; Lymphocytes # (auto) 0.77 K/uL (1.2-3.4); Lymphocytes % (auto) 5.1 %; Mean Corpuscular Hemoglobin 26.4 pg (25-34); Mean Corpuscular Volume 85.2 fL (80-100); Monocytes # (auto) 0.48 K/uL (0.11-0.59); Monocytes % (auto) 3.2 %; Neutrophils # (auto) 13.48 K/uL (1.4-6.5); Neutrophils % (auto) 90.1 %; Platelet Count 432 K/uL (130-400); RDW Coefficient of Variation 16.3 % (11.5-14.5); RDW Standard Deviation 51.1 fL (36.4-46.3); Red Blood Count 3.18 M/uL (4.2-5.4); White Blood Count 14.96 K/uL (4.8-10.8)
[2020-12-08 08:21] LABS: INR 1.1 (0.9-1.1); Partial Thromboplastin Time 26.5 Seconds (21.0-31.0); Prothrombin Time 11.1 Seconds (9.0-12.0)
[2020-12-08 08:25] LABS: BUN Creatinine Ratio 48.9 (10-20); Blood Urea Nitrogen 23 mg/dl (7-18); Calcium 8.6 mg/dl (8.5-10.1); Carbon Dioxide 28 mmol/L (21-32); Chloride 98 mmol/L (98-107); Creatinine Clr Calc Pharmacy 82.8 ml/min; Est GFR (African American) 108.1 ml/min; Est GFR (Non-African American) 93.3 ml/min; Glucose 113 mg/dl (70-99); Lipase 41 U/L (73-393); Magnesium 1.6 mg/dl (1.8-2.4); Potassium 3.5 mmol/L (3.5-5.1); Sodium 133 mmol/L (136-145)
[2020-12-08 08:30] LABS: NT Pro B Type Natriuretic Pept 28762 pg/ml (0-1800); Troponin I < 0.015 ng/ml (0-0.045)
[2020-12-08] MEDS ORDERED: FUROSEMIDE 40 MG/4 ML VIAL IV STA (08:56)
--- NOTE | 2020-12-08 09:33 | History & Physical Report ---
Date of Service December 08, 2020 Assessment & Plan (1) Acute systolic heart failure: Plan: Lasix given in the ER, will repeat echo given HF findings, trend troponin given now LBBb keep amio but will have cardiology evaluation. Continue Lasix daily holding hydrochlorothiazide (2) Atrial fibrillation: Plan: amiodarone, metoprolol succinate 100mg and apixiban (3) Chronic use of steroids: Plan: Rheumatoid arthiritis, on steroids and plaquenil (4) Wide-complex tachycardia: Plan: has had some issues in the past, EP thought was atrial arrhythmia with aberrancy, continues on amiodarone, replete magnesium (5) Anemia: Plan: anemia chronic disease (6) GERD (gastroesophageal reflux disease): Plan: Protonix (7) Hypomagnesemia: Plan: replete (8) Chronic obstructive asthma: Plan: Patient feels that the Breo inhaler is difficult for her to use with her anatomical abnormalities of her craniofacial changes. Subsequently we will asked the pharmacy to use her Symbicort that she is brought in. I do not feel she is in an exacerbation at this time filling her acute respiratory failure with hypoxia is more resultant of acute systolic heart failure. (9) DVT prophylaxis: Plan: apixiban (10) Protein-calorie malnutrition, moderate: History of Present Illness Primary Care Provider: [facility] The Pt presents with acute respiratory failure with hypoxia, she has a history of systolic heart failure but has EF 45%, she has CHF changes seen on CXR, she also has new LBBB, and in the last admission she has afib with aberrancy and started on amiodarone. Reportedly has prn symbicort. Covid negative. Patient states she actually had shortness of breath since her discharge because she was discharged on Breo instead of her Symbicort and she has difficult time due to her craniofacial abnormalities using Breo appropriately. She eventually was able to get back to her Symbicort but feels her shortness of breath progressed and she did not recover subsequently presenting here. Her chest x- ray however does actually look more like pulmonary edema from acute systolic heart failure than being short of breath from obstructive or reactive lung disease. During the time of her illness since she left on 22 November she denies any chest pain or pressure or feelings of palpitations notably she was here with a atrial arrhythmia and aberrancy last admission. Allergies Allergy/AdvReac Type Severity Reaction Status Date / Time ciprofloxacin Allergy Severe PASSED Verified 12/08/20 08:19 OUT, SEVERE RXN PER PATIENT nut - unspecified Allergy Intermediate HIVES Verified 12/08/20 08:19 banana Allergy Mild RASH Verified 12/08/20 08:19 latex Allergy Mild RASH Verified 12/08/20 08:19 moxifloxacin Allergy Mild PAIN IN Verified 12/08/20 08:19 HEEL nickel Allergy Mild RASH ON Verified 12/08/20 08:19 EARS WITH EARRINGS WITH NICKEL Sulfa (Sulfonamide Allergy Mild Rash Verified 12/08/20 08:19 Antibiotics) fluconazole AdvReac Intermediate TACHYCARDIA, Verified 12/08/20 08:19 HAIR LOSS adhesive AdvReac Mild CONTACT Verified 12/08/20 08:19 DERMATITIS codeine AdvReac Mild DIZZINESS Verified 12/08/20 08:19 hydrocodone AdvReac Dizziness Verified 12/08/20 08:19 Home Medications Medication Instructions Recorded Confirmed Type prednisone 1 mg tablet 2 mg PO QAM tab 08/20/20 12/08/20 History acetaminophen 325 mg tablet 650 mg PO Q8H PRN MDD 3 GRAMS/24 09/13/20 12/08/20 History (Tylenol) HOURS calcium carbonate 500 mg calcium 500 mg PO DAILY PRN 09/13/20 12/08/20 History (1,250 mg) chewable tablet prednisone 5 mg tablet 5 mg PO QAM 09/13/20 12/08/20 History sennosides 8.6 mg-docusate sodium 1 tab-cap PO BID 09/13/20 12/08/20 History 50 mg tablet Saccharomyces boulardii 250 mg 250 mg PO QAM 10/15/20 12/08/20 History capsule (Florastor) amitriptyline 10 mg tablet 10 mg PO HS 10/15/20 12/08/20 History budesonide-formoterol HFA 160 2 puff INHALATION BID17 10/15/20 12/08/20 History mcg-4.5 mcg/actuation aerosol inhaler (Symbicort) carboxymethylcellulose sodium 1 % 1 drp OPB DAILY PRN 10/15/20 12/08/20 History eye drops (Artificial Tears (carboxymethylcellulose)) hydrocodone 5 mg-acetaminophen 325 0.5 tab PO Q6H PRN #60 tab 11/11/20 12/08/20 Rx mg tablet docusate sodium 100 mg capsule 100 mg PO QAM PRN 11/14/20 12/08/20 History oxycodone 5 mg tablet 5 mg PO Q4H PRN #120 tab 11/14/20 12/08/20 Rx isosorbide mononitrate 30 mg 30 mg PO QAM #30 tab 11/21/20 12/08/20 Rx tablet,extended release 24 hr metoprolol succinate 50 mg 100 mg PO QAM #30 tab 11/21/20 12/08/20 Rx tablet,extended release 24 hr apixaban 2.5 mg tablet (Eliquis) 2.5 mg PO BID 11/28/20 12/08/20 History amiodarone 200 mg tablet 400 mg PO QAM 12/08/20 12/08/20 History hydrochlorothiazide 25 mg tablet 25 mg PO QAM 12/08/20 12/08/20 History nitroglycerin 0.4 mg sublingual 0.4 mg SUBLINGUAL Q5M PRN 12/08/20 12/08/20 History tablet pantoprazole 40 mg tablet,delayed 40 mg PO QAM 12/08/20 12/08/20 History release Past Med/Surg History Medical History Acute diverticulitis Asthma Atopic dermatitis Bronchitis CAD (coronary artery disease) Diverticula of colon Duodenal ulcer Eczema 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 Stroke like symptoms. History of intestinal obstruction HTN (hypertension) Hx of lower gastrointestinal bleeding 2018-RESOLVED Incisional hernia without obstruction or gangrene Intraoperative ureteral injury PT DENIES Long-term use of hydroxychloroquine Multiple pulmonary nodules DUE TO RA Osteoporosis Peptic ulcer disease Seropositive rheumatoid arthritis Sjogrens syndrome SOB (shortness of breath) on exertion Ventricular tachycardia Surgical History History of colonoscopy History of colostomy History of colostomy reversal ETT#7, Glidescope #3, Grade 1 View - attempt x 1, atraumatic History of esophagogastroduodenoscopy (EGD) History of facial surgery History of partial colectomy History of tonsillectomy and adenoidectomy History of total knee arthroplasty RIGHT Hx of right heart catheterization 2018 [facility] > NO STENTS Status post right foot surgery 2012 AT [place] Ventral hernia with bowel obstruction Family History Mother Asthma Heart disease Renal failure Brother Heart disease Father Pneumonia Other History of section Ventral hernia with bowel obstruction Social History Smoking Status: Never smoker Years Smoked: 2; Second Hand Exposure: No; Hx Alcohol Use: No Hx Substance Use: No Preferred Language: Turkish Communication Ability: Effective Visual Impairment: No Limitations Blending Operator Required: No Beliefs That Will Affect Care: None marital status: / Current Living Situation: Personal Care Facility current occupational status: retired Feels Safe at Home: Yes Seatbelt Use: always Assistive Devices: Walker Review of Systems Review of Systems: Mild distress and fatigue no headache, no visual changes no speech or swallowing issues no chest pain, pressure or palpitations Is short of breath at baseline but worse with activity nonproductive cough no abdominal pain, nausea or vomiting, diarrhea or constipation no dysuria, hematuria or frequency no focal joint pain does have lower extremity swelling no back pain, CVA tenderness or radicular pain no bruising, bleeding or rashes no focal signs of weakness or numbness or altered sensation no complaints of anxiety or depression.. Physical Exam Physical Exam: The patient appeared worsened state in time of discharge Vital signs as documented. Head exam is normocephalic atraumatic Neck is with JVD, thyromegaly, or carotid bruits. Lungs are coarse rales bilaterally to the apices Cardiac exam, Rhythm is regular.. No murmurs, rubs or gallops. To be a rate controlled left bundle branch block seemingly sinus mechanism on the monitor Abdominal exam reveals normal bowel sounds, soft non tender, no masses Extremities are 1+ edema bilaterally Neurologic exam is alert and oriented, no focal loss of strength or sensation Skin is without bruises or rashes Psychologically is without concerns for anxiety or depression Results & Data Results & Data ([facility]) Vital Signs (Past 12 Hours) Vital Signs Temp Pulse Pulse Resp BP BP Pulse Ox 12/08/20 08:30 72 25 H 162/82 H 96 12/08/20 07:36 87 L 12/08/20 07:29 97.9 F 76 20 179/87 H 87 L Diagnostic Findings Chest X-Ray 12/08/20 07:28 XR chest 1V portable HISTORY: 80 years-old Female Chest Pain acute atypical chest pain COMPARISON: Chest radiograph 11/14/2020 TECHNIQUE: Portable AP view of the chest FINDINGS: Cardiac silhouette is enlarged. Layering pleural effusions with moderate bibasilar consolidation. Pulmonary vascular congestion with interstitial coarsening. No pneumothorax. Unchanged pleural thickening of the lung apices. Degenerative changes of the shoulders and spine. IMPRESSION: 1. Cardiomegaly with pulmonary vascular congestion and interstitial coarsening suggestive of pulmonary edema. 2. Layering pleural effusions with moderate bibasilar consolidation. ACT 112: Negative or not required by law. The above report was generated using voice recognition software. It may contain grammatical, syntax or spelling errors. Electronically signed by: Abhinav Torres M.D. 12/08/2020 7:45 AM ECG Additional Comments: LBBBis seen PG Care Time/CCT Total # of Minutes Spent Total Time Spent with Patient: Total time spent is greater than 50% in coordination of care (as documented) at patient's floor/unit and/or counseling patient: Coding Level of Care Code 92880 Initial Inpt Care Lvl 3 Diagnoses Atrial fibrillation I48.91 Chronic use of steroids Wide-complex tachycardia I47.2 Anemia D64.9 GERD (gastroesophageal reflux disease) K21.9 Hypomagnesemia E83.42 Acute systolic heart failure I50.21 DVT prophylaxis Z29.9 Protein-calorie malnutrition, moderate E44.0 Chronic obstructive asthma J44.9
[2020-12-08] MEDS ORDERED: MAGNESIUM SULFATE / D5W 1 GM/100 ML BAG IV STA (09:40)
--- NOTE | 2020-12-08 09:51 | Electrocardiogram Report ---
Test Reason : Blood Pressure : / mmHG Vent. Rate : 076 BPM Atrial Rate : 076 BPM P-R Int : 170 ms QRS Dur : 194 ms QT Int : 486 ms P-R-T Axes : 034 -35 115 degrees QTc Int : 546 ms Normal sinus rhythm Left atrial enlargement Left axis deviation Left bundle branch block Abnormal ECG When compared with ECG of 16-NOV-2020 18:41, Left bundle branch block is now Present Confirmed by Wilfred White ([id number]) on 12/08/2020 9:50:32 AM Referred By: [facility] Confirmed By:Wilfred White
[2020-12-08] MEDS ORDERED: DOCUSATE SODIUM 100 MG CAP PO PRN (11:51)
[2020-12-08] MEDS ORDERED: ONDANSETRON INJ 2 MG/ML 2 ML VIAL IV PRN (11:51)
[2020-12-08] MEDS ORDERED: MAGNESIUM CITRATE 296 ML/BTL PO PRN (11:51)
[2020-12-08] MEDS ORDERED: ACETAMINOPHEN 325 MG TAB PO PRN (11:51)
[2020-12-08] MEDS ORDERED: NITROGLYCERIN SL 0.4 MG/TAB TAB SL PRN (11:51)
[2020-12-08] MEDS ORDERED: CALCIUM CARBONATE 500 MG CHEWABLE TAB PO PRN (12:04)
[2020-12-08] MEDS ORDERED: ARTIFICIAL TEARS OP PRN (12:12)
[2020-12-08] MEDS: oxyCODONE HCL IR 5 MG TAB (IMMEDIATE RELEASE) PO PRN ×2 (12:51→20:47)
[2020-12-08 14:51] LABS: Appearance Urine Clear (Clear); Bacteria Urine Automated Negative (Negative); Bilirubin Urine Negative (Negative); Blood Urine Negative (Negative); Cast Urine Automated 0 /lpf (0-5); Color Urine Yellow; Glucose Urine UA Negative (Negative); Ketones Urine Negative (Negative); Leukocyte Esterase Urine Trace (Negative); Nitrite Urine Negative (Negative); Protein Urine Negative (Negative); RBC Urine Automated 0-4 /hpf (0-4); Specific Gravity Urine 1.007 (1.000-1.030); Urobilinogen Urine Negative (Negative)
[2020-12-08] MEDS ORDERED: FLUTICASONE/VILANTEROL 200/25MCG 14 PUFFS/INHALER INH SCH (17:15)
[2020-12-08] MEDS ORDERED: FUROSEMIDE 20 MG in SYRINGE 0 ML IV ONE (17:30)
[2020-12-08] MEDS: BUDESONIDE/FORMOTEROL FUMARATE 160/4.5 60 PUFFS/INHALER INH SCH (18:44)
[2020-12-08 19:50] LABS: Alanine Aminotransferase 15 U/L (12-78); Albumin Level 2.1 gm/dl (3.4-5.0); Alkaline Phosphatase 108 U/L (45-117); Aspartate Aminotransferase 14 U/L (15-37); Bilirubin Direct 0.1 mg/dl (0-0.2); Bilirubin,Total 0.3 mg/dl (0.2-1); Total Protein 6.2 gm/dl (6.4-8.2); Troponin I < 0.015 ng/ml (0-0.045)
[2020-12-08] MEDS: DOCUSATE SODIUM/SENNA 50/8.6MG TAB PO SCH (20:43)
[2020-12-08] MEDS: AMITRIPTYLINE HCL 10 MG TAB PO SCH (20:43)
[2020-12-08] MEDS: APIXABAN 2.5 MG TAB PO SCH (20:43)
[2020-12-09 06:57] LABS: Hematocrit (blood only) 28.2 % (37-47); Hemoglobin 8.6 g/dL (12.0-16.0); Mean Corpuscular Hgb Conc 30.5 g/dL (32-36); Mean Corpuscular Volume 85.2 fL (80-100); Mean Platelet Volume 8.9 fL (7.4-10.4); Platelet Count 434 K/uL (130-400); RDW Coefficient of Variation 16.5 % (11.5-14.5); RDW Standard Deviation 52.1 fL (36.4-46.3); Red Blood Count 3.31 M/uL (4.2-5.4); White Blood Count 13.75 K/uL (4.8-10.8)
[2020-12-09 07:27] LABS: BUN Creatinine Ratio 42.7 (10-20); Calcium 8.4 mg/dl (8.5-10.1); Est GFR (African American) 110.6 ml/min; Est GFR (Non-African American) 95.4 ml/min; Magnesium 1.5 mg/dl (1.8-2.4); Potassium 3.1 mmol/L (3.5-5.1)
[2020-12-09] MEDS: oxyCODONE HCL IR 5 MG TAB (IMMEDIATE RELEASE) PO PRN ×4 (08:26→23:17)
[2020-12-09] MEDS: APIXABAN 2.5 MG TAB PO SCH ×2 (08:27→21:20)
[2020-12-09] MEDS: METOPROLOL SUCC 50MG EXT REL TAB PO SCH (08:27)
[2020-12-09] MEDS: predniSONE 5 MG TAB PO SCH (08:27)
[2020-12-09] MEDS: predniSONE 1 MG TAB PO SCH (08:27)
[2020-12-09] MEDS: FUROSEMIDE 40 MG TAB PO SCH (08:27)
[2020-12-09] MEDS: DOCUSATE SODIUM/SENNA 50/8.6MG TAB PO SCH ×2 (08:27→21:21)
[2020-12-09] MEDS: ISOSORBIDE MONO EXTENDED REL 30 MG TABCR PO SCH (08:28)
[2020-12-09] MEDS: SACCHAROMYCES BOULARDII 250 MG CAP PO SCH (08:28)
[2020-12-09] MEDS: BUDESONIDE/FORMOTEROL FUMARATE 160/4.5 60 PUFFS/INHALER INH SCH ×2 (08:28→21:22)
[2020-12-09] MEDS: PANTOprazole 40 MG TAB PO SCH (08:28)
[2020-12-09] MEDS: POTASSIUM CHLORIDE CRTAB 20 MEQ TABCR PO SCH ×2 (08:29→21:21)
[2020-12-09] MEDS: MAGNESIUM SULFATE / D5W 1 GM/100 ML BAG IV SCH ×4 (08:33→15:14)
[2020-12-09] MEDS ORDERED: AMIODARONE 200 MG TAB PO SCH (09:00)
[2020-12-09] MEDS: ARTIFICIAL TEARS OP OINT 3.5 GM TUBE OPR SCH ×3 (11:40→21:22)
[2020-12-09] MEDS ORDERED: COUGH DROP (SUGAR FREE) LOZ 24 LOZ/1 BOX BUCCAL ONE (14:53)
--- NOTE | 2020-12-09 19:00 | Hospitalist Progress Note ---
Date of Service December 09, 2020 Assessment & Plan (1) Acute systolic heart failure: Plan: EF was 40 - 45% in 11/2020. - Lasix started IV initially; now switched to oral. - Cardiology consulted: Agree with further diuresis (2) Atrial fibrillation: Plan: Presently rate-controlled. - Continue amiodarone, metoprolol succinate, and apixaban (3) Chronic use of steroids: Plan: Due to rheumatoid arthritis. Presently with some pain in the neck and hands. - Continue home prednisone 7 mg PO daily and Plaquenil (4) CAD (coronary artery disease): Plan: No present chest pain. Very mild nonobstructive CAD noted on 2018 cardiac catheterization. - Continue Imdur, metoprolol - Will discuss statin with her (5) Wide-complex tachycardia: Plan: Thought to be atrial arrhythmia with aberrancy. Presently in normal sinus with a LBBB. - Continue on amiodarone, replete magnesium (6) Anemia: Plan: Baseline hgb ~8-9. Anemia chronic disease. - At baseline (7) GERD (gastroesophageal reflux disease): Plan: No report of GERD today. - Continue Protonix (8) Chronic obstructive asthma: Plan: Patient feels that the Breo inhaler is difficult for her to use with her anatomical abnormalities of her craniofacial changes. Not in exacerbation. - Continue Symbicort (9) DVT prophylaxis: Plan: Apixaban Admission and Anticipated Discharge Date Admission Date: December 08, 2020 Subjective Doing better today. Her right eye is sore from being dry. Reports no fevers/chills, chest pain, shortness of breath, abdominal pain, nausea, or vomiting. Physical Exam Constitutional: WD/WN, vitals as above Eyes: EOM intact bilaterally; no conjunctival abnormality ENMT: external ear and nose normal, oropharynx normal Neck: trachea midline, no thyromegaly normal visual inspection Respiratory: normal respiratory effort, lungs clear to auscultation no respiratory distress Cardiovascular: RRR, no murmur, no edema Gastrointestinal (Abdomen): Inspection/Auscultation: abdomen normal to inspection; abdomen not distended Musculoskeletal: no cyanosis or clubbing, extremities motor strength 5/5 Skin: no rashes, warm and dry Neurologic: moves all extremities and awake Psychiatric: Orientation: alert, oriented to person and cooperative Results & Data Results & Data ([facility]) Vital Signs (Past 12 Hours) Vital Signs Temp Pulse Resp BP Pulse Ox 12/09/20 15:31 36.6 C 55 L 19 119/68 98 12/09/20 12:14 36.7 C 66 19 126/66 96 12/09/20 08:09 36.5 C 72 18 148/70 H 96 PG Care Time/CCT Total # of Minutes Spent Total Time Spent with Patient: Total time spent is greater than 50% in coordination of care (as documented) at patient's floor/unit and/or counseling patient: Coding Level of Care Code 70608 Subseq Hosp Care Lvl 3 Diagnoses Acute systolic heart failure I50.21 Atrial fibrillation I48.91 Chronic use of steroids Wide-complex tachycardia I47.2 Anemia D64.9 GERD (gastroesophageal reflux disease) K21.9 Chronic obstructive asthma J44.9 DVT prophylaxis Z29.9 CAD (coronary artery disease) I25.10
--- NOTE | 2020-12-09 19:31 | Cardiology Consultation ---
Date of Consultation December 09, 2020 Assessment & Plan (1) Acute systolic heart failure: (2) Paroxysmal atrial fibrillation: (3) LBBB (left bundle branch block): (4) Cardiomyopathy: (5) CAD (coronary artery disease): (6) Mitral regurgitation: ASSESSMENT/PLAN: 1. Acute systolic CHF: She has not required diuretic as an outpatient but presents with CHF exacerbation. Echo also reports reduced LV systolic function however this was not discussed with her as the echo results were not available at that time has the report has not crossed into EHR. Continue diuretic with a goal net negative fluid balance. If p.o. diuretic is unsuccessful, would dose intravenous diuretic. Add spironolactone given hypokalemia. Start carvedilol as heart rate allows. Consider Entresto prior to discharge. Recommend heart failure program. 2. Paroxysmal atrial fibrillation: Electrophysiology had recommended reduction of amiodarone to 200 mg daily 1 week after recent discharge. Will reduce amiodarone at this time. Atrial fibrillation burden has significantly improved since Paula presentation. On anticoagulation for stroke risk reduction. 3. LBBB: Noted last hospitalization in November of 2020. Could be playing a role in her reduced LV systolic function as her QRS is significantly greater than 150 milliseconds. 4. Nonischemic cardiomyopathy: Has chronically had reduced LV systolic function but with possible mild worsening currently. Start carvedilol. Consider Entresto. If LV systolic function is not improved over time, would consider biventricular ICD if applicable and agreeable by patient. Will defer this to her tandem mill sticker, Dr. Liu. 5. CAD: Mild and nonobstructive in 2018. No angina. Consider statin therapy. 6. Mitral regurgitation: Non severe. Me appear worse on current echo given hypervolemic state. Can follow over time. 7. Disposition: Cardiology will continue to follow. Patient care discussed with Dr. Hall of the primary hospitalist service. Thank you for allowing me to participate in the care of your patient. Please call for any other questions or concerns. Sincerely, Yrn Frederick M.D. History of Present Illness Reason for Consultation: New LBBB Requesting Physician: Dr. Marie Attending Physician: Rip Hall MD History of Present Illness Ms. Zepeda is a pleasant 80-year-old female with a history significant for nonischemic cardiomyopathy, Atrial fibrillation, LBBB,rheumatoid arthritis, GI bleed (on NSAID) requiring PRBC transfusion, hypertension, ventricular tachycardia, and COPD. 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 Her primary tandem mill sticker is Dr. Liu. She has a history of nonsustained ventricular tachycardia and was hospitalized at [facility] in July of 2020 were her EF was reported as 40% (consistent with prior EF here in 2018). She was hospitalized at [facility] for small bowel obstruction and cardiology saw her in consultation and recommended continuation of beta-mar. There was no reported sustained arrhythmia. She underwent cardiac catheterization in 2017 and had mild nonobstructive CAD involving the RCA, but otherwise no significant CAD. She was then hospitalized in November of 2020 with atrial fibrillation with rapid ventricular response. She was placed on amiodarone with eventual improvement in her rhythm. She was noted to have left bundle-branch block at that time. She has an upcoming appointment with her tandem mill sticker, Dr. Liu but due to worsening shortness of breath, she was admitted on 12/08/2020. Ever since discharge in November, she has been struggling with shortness of breath. She was having difficulties using Breo inhaler and then was changed to Symbicort recently. This improved her shortness of breath but over the past few days, shortness of breath once again worsened. She has noted orthopnea but no PND. She has noted increased swelling in her lower extremities and overall fatigue. She denies chest pain, palpitations, syncope, near-syncope, or bleeding such as melena, hematochezia, or hematuria. In the emergency department, she received intravenous Lasix and her symptoms have improved. She has since been switched to oral diuretics in the form of Lasix 40 mg daily. As an outpatient she had not been prescribed a loop diuretic. She has not yet back to baseline but admits improvement as noted. She was seen earlier this afternoon on 12/08/2020. Review of systems: As above. Review of systems otherwise negative/unremarkable. Family history: Mother from emphysema at the age of 50. Social history: She quit smoking many years ago. Rare alcohol. She currently resides in assisted living at [facility]. She has not been . No children. She was alone in her hospital room. Allergies Allergy/AdvReac Type Severity Reaction Status Date / Time ciprofloxacin Allergy Severe PASSED Verified 12/08/20 08:19 OUT, SEVERE RXN PER PATIENT nut - unspecified Allergy Intermediate HIVES Verified 12/08/20 08:19 banana Allergy Mild RASH Verified 12/08/20 08:19 latex Allergy Mild RASH Verified 12/08/20 08:19 moxifloxacin Allergy Mild PAIN IN Verified 12/08/20 08:19 HEEL nickel Allergy Mild RASH ON Verified 12/08/20 08:19 EARS WITH EARRINGS WITH NICKEL Sulfa (Sulfonamide Allergy Mild Rash Verified 12/08/20 08:19 Antibiotics) fluconazole AdvReac Intermediate TACHYCARDIA, Verified 12/08/20 08:19 HAIR LOSS adhesive AdvReac Mild CONTACT Verified 12/08/20 08:19 DERMATITIS codeine AdvReac Mild DIZZINESS Verified 12/08/20 08:19 hydrocodone AdvReac Dizziness Verified 12/08/20 08:19 Home Medications Medication Instructions Recorded Confirmed Type prednisone 1 mg tablet 2 mg PO QAM tab 08/20/20 12/08/20 History acetaminophen 325 mg tablet 650 mg PO Q8H PRN MDD 3 GRAMS/24 09/13/20 12/08/20 History (Tylenol) HOURS calcium carbonate 500 mg calcium 500 mg PO DAILY PRN 09/13/20 12/08/20 History (1,250 mg) chewable tablet prednisone 5 mg tablet 5 mg PO QAM 09/13/20 12/08/20 History sennosides 8.6 mg-docusate sodium 1 tab-cap PO BID 09/13/20 12/08/20 History 50 mg tablet Saccharomyces boulardii 250 mg 250 mg PO QAM 10/15/20 12/08/20 History capsule (Florastor) amitriptyline 10 mg tablet 10 mg PO HS 10/15/20 12/08/20 History budesonide-formoterol HFA 160 2 puff INHALATION BID17 10/15/20 12/08/20 History mcg-4.5 mcg/actuation aerosol inhaler (Symbicort) carboxymethylcellulose sodium 1 % 1 drp OPB DAILY PRN 10/15/20 12/08/20 History eye drops (Artificial Tears (carboxymethylcellulose)) hydrocodone 5 mg-acetaminophen 325 0.5 tab PO Q6H PRN #60 tab 11/11/20 12/08/20 Rx mg tablet docusate sodium 100 mg capsule 100 mg PO QAM PRN 11/14/20 12/08/20 History oxycodone 5 mg tablet 5 mg PO Q4H PRN #120 tab 11/14/20 12/08/20 Rx isosorbide mononitrate 30 mg 30 mg PO QAM #30 tab 11/21/20 12/08/20 Rx tablet,extended release 24 hr metoprolol succinate 50 mg 100 mg PO QAM #30 tab 11/21/20 12/08/20 Rx tablet,extended release 24 hr apixaban 2.5 mg tablet (Eliquis) 2.5 mg PO BID 11/28/20 12/08/20 History amiodarone 200 mg tablet 400 mg PO QAM 12/08/20 12/08/20 History hydrochlorothiazide 25 mg tablet 25 mg PO QAM 12/08/20 12/08/20 History nitroglycerin 0.4 mg sublingual 0.4 mg SUBLINGUAL Q5M PRN 12/08/20 12/08/20 History tablet pantoprazole 40 mg tablet,delayed 40 mg PO QAM 12/08/20 12/08/20 History release Patient History Medical History (Updated 12/10/20 @ 00:01 by Prudencio Frederick MD) Acute diverticulitis Asthma Atopic dermatitis Bronchitis CAD (coronary artery disease) Diverticula of colon Duodenal ulcer Eczema Facial nerve palsy HAPPENED AT AGE 17> RIGHT SIDE High risk medication use 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 Stroke like symptoms. History of intestinal obstruction HTN (hypertension) Hx of lower gastrointestinal bleeding 2019-RESOLVED Incisional hernia without obstruction or gangrene Intraoperative ureteral injury PT DENIES Long-term use of hydroxychloroquine Mitral regurgitation Multiple pulmonary nodules DUE TO RA Osteoporosis Peptic ulcer disease Seropositive rheumatoid arthritis Sjogrens syndrome SOB (shortness of breath) on exertion Ventricular tachycardia Surgical History History of colonoscopy History of colostomy History of colostomy reversal ETT#7, Glidescope #3, Grade 1 View - attempt x 1, atraumatic History of esophagogastroduodenoscopy (EGD) History of facial surgery History of partial colectomy History of tonsillectomy and adenoidectomy History of total knee arthroplasty RIGHT Hx of right heart catheterization 2018 [facility] > NO STENTS Status post right foot surgery 2012 AT [facility] Ventral hernia with bowel obstruction Family History Mother Asthma Heart disease Renal failure Brother Heart disease Father Pneumonia Other History of section Ventral hernia with bowel obstruction Social History Smoking Status: Former smoker Years Smoked: 2; Second Hand Exposure: No; Do You Dip or Chew Tobacco: No; Tobacco Cessation Education Requested by Patient: No Hx Alcohol Use: No Hx Substance Use: No Preferred Language: Kazakh Communication Ability: Effective Visual Impairment: No Limitations Bump Grader Operator Required: No Beliefs That Will Affect Care: None marital status: / Current Living Situation: Personal Care Facility current occupational status: retired Feels Safe at Home: Yes Safety Concerns: Feels Safe At This Time Seatbelt Use: always Assistive Devices: None Physical Exam Physical Exam: Gen.: No acute distress. Alert and oriented. HEENT: Anicteric sclera. Neck: No JVD. No hepatic jugular reflux noted. No bruits. Normal carotid upstrokes bilaterally. Cardiac: PMI was nondisplaced. No ventricular heave. Regular. Normal S1-S2. 1/6 systolic murmur. No rubs or gallops. Pulmonary: Decreased breath sounds at the bases, but otherwise clear to auscultation bilaterally without wheezes, rales, or rhonchi. Abdomen: Soft, nontender, nondistended, with normoactive bowel sounds. No bruits noted. Extremities: 2+ radial pulses bilaterally. 2+ posterior tibialis pulses bilaterally. 1+ bilateral lower extremity edema. No cyanosis. Psychiatric: Affect appears appropriate. Results & Data ([facility]) Vital Signs (Past 12 Hours) Vital Signs Temp Pulse Resp BP Pulse Ox 12/09/20 15:31 36.6 C 55 L 19 119/68 98 12/09/20 12:14 36.7 C 66 19 126/66 96 12/09/20 08:09 36.5 C 72 18 148/70 H 96 Laboratory Results Laboratory Results - last 24 hr 12/09/20 12/09/20 06:23 06:23 WBC 13.75 H RBC 3.31 L Hgb 8.6 L Hct 28.2 L MCV 85.2 MCH 26.0 MCHC 30.5 L RDW Std Deviation 52.1 H RDW Coeff of Chauncey 16.5 H Plt Count 434 H MPV 8.9 Sodium 132 L Potassium 3.1 L Chloride 94 L Carbon Dioxide 33 H Anion Gap 5.0 BUN 18 Creatinine 0.43 L Est Cr Clr Drug Dosing 85.0 Est GFR ( Amer) 110.6 Est GFR (Non-Af Amer) 95.4 BUN/Creatinine Ratio 42.7 H Glucose 90 Calcium 8.4 L Magnesium 1.5 L Diagnostic Findings Telemetry personally reviewed: Episode of paroxysmal atrial fibrillation on 12/08/2020 at approximately 9:23 p.m., otherwise sinus rhythm. ECG personally reviewed: ECG 12/08/2020 at 7:24 a.m.: Sinus rhythm 76 bpm. LBBB. Echo 12/08/2020 report reviewed: LV EF 30-35%. Global hypokinesis. Septal motion consistent with conduction abnormality. Moderate MR. Chest x-ray 12/08/2020: Pulmonary vascular congestion and interstitial coarsening per Radiology. Moderate bibasilar consolidation and layering pleural effusions. Medications Administered Current Inpatient Medications Acetaminophen (Acetaminophen 325 Mg Tab) 650 mg PO Q4H PRN PRN Reason: Pain or Fever Stop: 01/07/21 11:50 Amiodarone HCl (Amiodarone 200 Mg Tab) 400 mg PO QAM [facility] Stop: 01/08/21 08:59 Last Admin: 12/09/20 08:27 Dose: 400 mg Documented by: Amitriptyline HCl (Amitriptyline Hcl 10 Mg Tab) 10 mg PO HS [facility] Stop: 01/07/21 20:59 Last Admin: 12/09/20 21:20 Dose: 10 mg Documented by: Apixaban (Apixaban 2.5 Mg Tab) 2.5 mg PO BID [facility] Stop: 01/07/21 20:59 Last Admin: 12/09/20 21:20 Dose: 2.5 mg Documented by: Artificial Tears (Artificial Tears) 1 drops OP DAILY PRN PRN Reason: Dry Eyes Stop: 01/07/21 12:11 Budesonide/Formoterol Fumarate (Budesonide/Formoterol Fumarate 160/4.5 60 Puffs/Inhaler) 2 puffs INH BID [facility] Stop: 01/07/21 20:59 Last Admin: 12/09/20 21:22 Dose: 2 puffs Documented by: Calcium Carbonate (Calcium Carbonate 500 Mg Chewable Tab) 500 mg PO DAILY PRN PRN Reason: Indigestion Stop: 01/07/21 12:03 Docusate Sodium (Docusate Sodium 100 Mg Cap) 100 mg PO [facility] PRN PRN Reason: Constipation Stop: 01/07/21 11:50 Furosemide (Furosemide 40 Mg Tab) 40 mg PO [facility] Stop: 01/08/21 08:59 Last Admin: 12/09/20 08:27 Dose: 40 mg Documented by: Isosorbide Mononitrate (Isosorbide Parker Extended Rel 30 Mg Tabcr) 30 mg PO [facility] Stop: 01/08/21 08:59 Last Admin: 12/09/20 08:28 Dose: 30 mg Documented by: Magnesium Citrate (Magnesium Citrate 296 Ml/Btl) 148 ml PO DAILY PRN PRN Reason: constipation Stop: 01/07/21 11:50 Metoprolol Succinate (Metoprolol Succ 50mg Ext Rel Tab) 100 mg PO [facility] Stop: 01/08/21 08:59 Last Admin: 12/09/20 08:27 Dose: 100 mg Documented by: Multi-Ingredient Cream (Artificial Tears Op Oint 3.5 Gm Tube) 1 appln OPR TID [facility] Stop: 01/08/21 10:29 Last Admin: 12/09/20 21:22 Dose: 1 appln Documented by: Nitroglycerin (Nitroglycerin Sl 0.4 Mg/Tab Tab) 0.4 mg SL Q5M PRN PRN Reason: Chest Pain Stop: 01/07/21 11:50 Ondansetron HCl (Ondansetron Inj 2 Mg/Ml 2 Ml Vial) 4 mg IV Q6H PRN PRN Reason: Nausea Stop: 01/07/21 11:50 Oxycodone HCl (Oxycodone Hcl Ir 5 Mg Tab (Immediate Release)) 5 mg PO Q4H PRN PRN Reason: Pain Stop: 12/22/20 11:50 Last Admin: 12/09/20 23:17 Dose: 5 mg Documented by: Pantoprazole Sodium (Pantoprazole 40 Mg Tab) 40 mg PO [facility] Stop: 01/08/21 08:59 Last Admin: 12/09/20 08:28 Dose: 40 mg Documented by: Prednisone (Prednisone 1 Mg Tab) 2 mg PO [facility] Stop: 01/08/21 08:59 Last Admin: 12/09/20 08:27 Dose: 2 mg Documented by: Prednisone (Prednisone 5 Mg Tab) 5 mg PO QAM [facility] Stop: 01/08/21 08:59 Last Admin: 12/09/20 08:27 Dose: 5 mg Documented by: Saccharomyces Boulardii (Saccharomyces Boulardii 250 Mg Cap) 250 mg PO QAM [facility] Stop: 01/08/21 08:59 Last Admin: 12/09/20 08:28 Dose: 250 mg Documented by: Senna/Docusate Sodium (Docusate Sodium/Senna 50/8.6mg Tab) 1 tab PO BID [facility] Stop: 01/07/21 20:59 Last Admin: 12/09/20 21:21 Dose: 1 tab Documented by: PG Care Time/CCT Total # of Minutes Spent Total Time Spent with Patient: Total time spent is greater than 50% in coordination of care (as documented) at patient's floor/unit and/or counseling patient: Coding Level of Care Code 62593 Initial Inpt Care Lvl 3 Diagnoses Acute systolic heart failure I50.21 Paroxysmal atrial fibrillation I48.0 LBBB (left bundle branch block) I44.7 Cardiomyopathy I42.9 CAD (coronary artery disease) I25.10 Mitral regurgitation I34.0
[2020-12-09] MEDS: AMITRIPTYLINE HCL 10 MG TAB PO SCH (21:20)
[2020-12-10] MEDS: oxyCODONE HCL IR 5 MG TAB (IMMEDIATE RELEASE) PO PRN ×3 (04:34→20:39)
[2020-12-10 08:01] LABS: Hemoglobin 8.7 g/dL (12.0-16.0); Mean Corpuscular Hemoglobin 25.4 pg (25-34); Mean Corpuscular Volume 84.8 fL (80-100); Platelet Count 433 K/uL (130-400); RDW Coefficient of Variation 16.6 % (11.5-14.5); RDW Standard Deviation 51.2 fL (36.4-46.3); Red Blood Count 3.42 M/uL (4.2-5.4); White Blood Count 15.57 K/uL (4.8-10.8)
[2020-12-10 08:38] LABS: BUN Creatinine Ratio 58.5 (10-20); Calcium 8.6 mg/dl (8.5-10.1); Creatinine Clr Calc Pharmacy 97.7 ml/min; Est GFR (African American) 114.2 ml/min; Est GFR (Non-African American) 98.5 ml/min; Magnesium 1.9 mg/dl (1.8-2.4); Potassium 4.5 mmol/L (3.5-5.1)
[2020-12-10] MEDS: BUDESONIDE/FORMOTEROL FUMARATE 160/4.5 60 PUFFS/INHALER INH SCH ×2 (08:44→20:13)
[2020-12-10] MEDS: ARTIFICIAL TEARS OP OINT 3.5 GM TUBE OPR SCH ×3 (08:44→20:13)
[2020-12-10] MEDS: SACCHAROMYCES BOULARDII 250 MG CAP PO SCH (08:47)
[2020-12-10] MEDS: AMIODARONE 200 MG TAB PO SCH (08:47)
[2020-12-10] MEDS: ISOSORBIDE MONO EXTENDED REL 30 MG TABCR PO SCH (08:47)
[2020-12-10] MEDS: predniSONE 1 MG TAB PO SCH (08:47)
[2020-12-10] MEDS: PANTOprazole 40 MG TAB PO SCH (08:47)
[2020-12-10] MEDS: METOPROLOL SUCC 50MG EXT REL TAB PO SCH (08:47)
[2020-12-10] MEDS: DOCUSATE SODIUM/SENNA 50/8.6MG TAB PO SCH ×2 (08:47→20:40)
[2020-12-10] MEDS: FUROSEMIDE 40 MG TAB PO SCH (08:47)
[2020-12-10] MEDS: APIXABAN 2.5 MG TAB PO SCH ×2 (08:47→20:40)
[2020-12-10] MEDS: predniSONE 5 MG TAB PO SCH (08:47)
[2020-12-10] MEDS ORDERED: carvediloL 3.125 MG TAB PO SCH (09:00)
[2020-12-10] MEDS: SPIRONOLACTONE 25 MG TAB PO SCH (09:38)
[2020-12-10] MEDS: ACETAMINOPHEN 325 MG TAB PO PRN (16:33)
--- NOTE | 2020-12-10 17:00 | Hospitalist Progress Note ---
Date of Service December 10, 2020 Assessment & Plan (1) Acute systolic heart failure: Plan: EF was 40 - 45% in 11/2020. - Lasix started IV initially; now switched to oral. - Cardiology consulted: Agree with further diuresis. Presently seems about the same to me from yesterday. Will increase to Lasix 40 mg IV daily starting this afternoon. (2) Atrial fibrillation: Plan: Presently rate-controlled. - Continue amiodarone, metoprolol succinate, and apixaban (3) Chronic use of steroids: Plan: Due to rheumatoid arthritis. Presently with significant pain in the neck and hands. - Continue home Plaquenil - Discussed with Dr. Andrade on 12/10. - Increase prednisone to 40 mg PO daily x 1 week, then taper 10 mg every week. (4) CAD (coronary artery disease): Plan: No present chest pain. Very mild nonobstructive CAD noted on 2018 cardiac catheterization. - Continue Imdur, metoprolol - Will discuss statin with her (5) Wide-complex tachycardia: Plan: Thought to be atrial arrhythmia with aberrancy. Presently in normal sinus with a LBBB. - Continue on amiodarone, replete magnesium (6) Anemia: Plan: Baseline hgb ~8-9. Anemia chronic disease. - At baseline (7) GERD (gastroesophageal reflux disease): Plan: No report of GERD today. - Continue Protonix (8) Chronic obstructive asthma: Plan: Patient feels that the Breo inhaler is difficult for her to use with her anatomical abnormalities of her craniofacial changes. Not in exacerbation. - Continue Symbicort (9) DVT prophylaxis: Plan: Apixaban Admission and Anticipated Discharge Date Admission Date: December 08, 2020 Subjective Doing better today. Her right eye is less sore with the lubricant. Reports no fevers/chills, chest pain, shortness of breath, abdominal pain, nausea, or vomiting. Physical Exam Constitutional: WD/WN, vitals as above Eyes: EOM intact bilaterally; no conjunctival abnormality ENMT: external ear and nose normal, oropharynx normal Neck: trachea midline, no thyromegaly normal visual inspection Respiratory: normal respiratory effort, lungs clear to auscultation no respiratory distress Cardiovascular: RRR, no murmur, no edema Gastrointestinal (Abdomen): Inspection/Auscultation: abdomen normal to inspection; abdomen not distended Musculoskeletal: no cyanosis or clubbing, extremities motor strength 5/5 Skin: no rashes, warm and dry Neurologic: moves all extremities and awake Psychiatric: Orientation: alert, oriented to person and cooperative Results & Data Results & Data ([place]) Vital Signs (Past 12 Hours) Vital Signs Temp Pulse Pulse Resp BP Pulse Ox 12/10/20 15:24 36.9 C 61 19 124/66 95 12/10/20 15:00 68 12/10/20 12:12 37.5 C 69 18 147/74 H 94 12/10/20 10:00 68 12/10/20 08:42 36.9 C 80 18 156/75 H 96 PG Care Time/CCT Total # of Minutes Spent Total Time Spent with Patient: Total time spent is greater than 50% in coordination of care (as documented) at patient's floor/unit and/or counseling patient: Coding Level of Care Code 94037 Subseq Hosp Care Lvl 3 Diagnoses Acute systolic heart failure I50.21 Atrial fibrillation I48.91 Chronic use of steroids CAD (coronary artery disease) I25.10 Wide-complex tachycardia I47.2 Anemia D64.9 GERD (gastroesophageal reflux disease) K21.9 Chronic obstructive asthma J44.9 DVT prophylaxis Z29.9
[2020-12-10] MEDS: predniSONE 20 MG TAB PO SCH (18:08)
[2020-12-10] MEDS: FUROSEMIDE 40 MG in SYRINGE 0 ML IV SCH (18:09)
--- NOTE | 2020-12-10 20:06 | Cardiology Progress Note ---
Date of Service December 10, 2020 Assessment & Plan (1) Acute systolic heart failure: (2) Paroxysmal atrial fibrillation: (3) LBBB (left bundle branch block): (4) Cardiomyopathy: (5) CAD (coronary artery disease): (6) Mitral regurgitation: Plan: ASSESSMENT/PLAN: 1. Acute systolic CHF: Clinically improving but still appears hypervolemic. Recommended intravenous diuretic. She received 20 mg of IV Lasix this morning. She received another 40 mg IV this evening. Would try to achieve net negative fluid balance of at least 1 L in the next 24 hours. May require b.i.d. dosing. Spironolactone has been added given reduced LV systolic function, hypervolemia, and hypokalemia. Continue metoprolol succinate. Will initiate low-dose Entresto. Enrolled in heart failure program. 2. Paroxysmal atrial fibrillation: Continue amiodarone at 200 mg daily. Atria l fibrillation burden has significantly improved since Paula presentation. On anticoagulation for stroke risk reduction. 3. LBBB: Noted last hospitalization in November of 2020. Could be playing a role in her reduced LV systolic function as her QRS is significantly greater than 150 milliseconds. 4. Nonischemic cardiomyopathy: Has chronically had reduced LV systolic function but with mild worsening currently. Continue metoprolol succinate. Initiate Entresto. If LV systolic function is not improved over time, would consider biventricular ICD if applicable and agreeable by patient. Will defer this to her eye physician, Dr. Liu. 5. CAD: Mild and nonobstructive in 2018. No angina. Consider statin therapy. 6. Mitral regurgitation: Non severe. May appear worse on current echo given h ypervolemic state. Can follow over time. 7. Disposition: Cardiology will continue to follow. Patient care communicated with Dr. Hall of the primary hospitalist service. Patient care also discussed with Dr. Liu, her primary eye physician. Admission and Anticipated Discharge Date Admission Date: December 08, 2020 Subjective She was seen this afternoon. Her shortness of breath is improving throughout the day and hospitalization. She has not yet back to baseline. She denies chest pain, palpitations, syncope, worsening edema, or bleeding. She was alone in her hospital room. Review of systems: As above. Physical Exam Physical Exam: Gen.: No acute distress. Alert and oriented. HEENT: Anicteric sclera. Neck: No JVD. No hepatic jugular reflux noted. Cardiac: PMI was nondisplaced. No ventricular heave. Regular. Normal S1-S2. 1/6 systolic murmur. No rubs or gallops. Pulmonary: Decreased breath sounds at the bases, but otherwise clear to auscultation bilaterally without wheezes, rales, or rhonchi. Abdomen: Soft, nontender, nondistended, with normoactive bowel sounds. No bruits noted. Left abdominal prominence, chronic. Extremities: 2+ radial pulses bilaterally. 2+ posterior tibialis pulses bilaterally. 1+ bilateral lower extremity edema. No cyanosis. Psychiatric: Affect appears appropriate. Results & Data ([facility]) Vital Signs (Past 12 Hours) Vital Signs Temp Pulse Pulse Resp BP Pulse Ox 12/10/20 18:50 36.7 C 61 18 124/64 96 12/10/20 15:24 36.9 C 61 19 124/66 95 12/10/20 15:00 68 12/10/20 12:12 37.5 C 69 18 147/74 H 94 12/10/20 10:00 68 12/10/20 08:42 36.9 C 80 18 156/75 H 96 Intake & Output 12/08/20 12/09/20 12/10/20 12/11/20 06:59 06:59 06:59 06:59 Intake Total 495 / 495 968.333 / 968.333 510 / 510 Output Total 2200 / 2200 350 / 350 600 / 600 Balance -1705 / -1705 618.333 / 618.333 -90 / -90 Weight 115 lb 11.883 oz 121 lb 0.54 oz Laboratory Results Laboratory Results - last 24 hr 12/10/20 12/10/20 07:10 07:10 WBC 15.57 H RBC 3.42 L Hgb 8.7 L Hct 29.0 L MCV 84.8 MCH 25.4 MCHC 30.0 L RDW Std Deviation 51.2 H RDW Coeff of Chauncey 16.6 H Plt Count 433 H MPV 9.0 Sodium 131 L Potassium 4.5 D Chloride 96 L Carbon Dioxide 32 Anion Gap 3.0 BUN 23 H Creatinine 0.39 L Est Cr Clr Drug Dosing 97.7 Est GFR ( Amer) 114.2 Est GFR (Non-Af Amer) 98.5 BUN/Creatinine Ratio 58.5 H Glucose 104 H Calcium 8.6 Magnesium 1.9 Diagnostic Findings Telemetry personally reviewed: Sinus rhythm. No further arrhythmia. Medications Administered Current Inpatient Medications Acetaminophen (Acetaminophen 325 Mg Tab) 650 mg PO Q4H PRN PRN Reason: Pain or Fever Stop: 01/07/21 11:50 Last Admin: 12/10/20 16:33 Dose: 650 mg Documented by: Amiodarone HCl (Amiodarone 200 Mg Tab) 200 mg PO QAM [facility] Stop: 01/09/21 08:59 Last Admin: 12/10/20 08:47 Dose: 200 mg Documented by: Amitriptyline HCl (Amitriptyline Hcl 10 Mg Tab) 10 mg PO HS [facility] Stop: 01/07/21 20:59 Last Admin: 12/09/20 21:20 Dose: 10 mg Documented by: Apixaban (Apixaban 2.5 Mg Tab) 2.5 mg PO BID [facility] Stop: 01/07/21 20:59 Last Admin: 12/10/20 08:47 Dose: 2.5 mg Documented by: Artificial Tears (Artificial Tears) 1 drops OP DAILY PRN PRN Reason: Dry Eyes Stop: 01/07/21 12:11 Budesonide/Formoterol Fumarate (Budesonide/Formoterol Fumarate 160/4.5 60 Puffs/Inhaler) 2 puffs INH BID [facility] Stop: 01/07/21 20:59 Last Admin: 12/10/20 08:44 Dose: 2 puffs Documented by: Calcium Carbonate (Calcium Carbonate 500 Mg Chewable Tab) 500 mg PO DAILY PRN PRN Reason: Indigestion Stop: 01/07/21 12:03 Diclofenac Sodium (Diclofenac Sod 1% Gel 100 Gm Tube) 2 gm EXT BID [facility] Stop: 01/09/21 20:59 Docusate Sodium (Docusate Sodium 100 Mg Cap) 100 mg PO QAM PRN PRN Reason: Constipation Stop: 01/07/21 11:50 Furosemide 40 mg/ Syringe 4 mls @ 4 mls/min IV DAILY [facility] Stop: 01/09/21 17:14 Last Admin: 12/10/20 18:09 Dose: 4 mls/min Documented by: Isosorbide Mononitrate (Isosorbide [place] Extended Rel 30 Mg Tabcr) 30 mg PO QAM [facility] Stop: 01/08/21 08:59 Last Admin: 12/10/20 08:47 Dose: 30 mg Documented by: Magnesium Citrate (Magnesium Citrate 296 Ml/Btl) 148 ml PO DAILY PRN PRN Reason: constipation Stop: 01/07/21 11:50 Metoprolol Succinate (Metoprolol Succ 50mg Ext Rel Tab) 100 mg PO QAM [facility] Stop: 01/08/21 08:59 Last Admin: 12/10/20 08:47 Dose: 100 mg Documented by: Multi-Ingredient Cream (Artificial Tears Op Oint 3.5 Gm Tube) 1 appln OPR TID [facility] Stop: 01/08/21 10:29 Last Admin: 12/10/20 15:00 Dose: 1 appln Documented by: Nitroglycerin (Nitroglycerin Sl 0.4 Mg/Tab Tab) 0.4 mg SL Q5M PRN PRN Reason: Chest Pain Stop: 01/07/21 11:50 Ondansetron HCl (Ondansetron Inj 2 Mg/Ml 2 Ml Vial) 4 mg IV Q6H PRN PRN Reason: Nausea Stop: 01/07/21 11:50 Oxycodone HCl (Oxycodone Hcl Ir 5 Mg Tab (Immediate Release)) 5 mg PO Q4H PRN PRN Reason: Pain Stop: 12/22/20 11:50 Last Admin: 12/10/20 16:33 Dose: 5 mg Documented by: Pantoprazole Sodium (Pantoprazole 40 Mg Tab) 40 mg PO QAM [facility] Stop: 01/08/21 08:59 Last Admin: 12/10/20 08:47 Dose: 40 mg Documented by: Prednisone (Prednisone 20 Mg Tab) [facility] [place]: 01/09/21 17:14 Last Admin: 12/10/20 18:08 Dose: 40 mg Documented by: Saccharomyces Boulardii (Saccharomyces Boulardii 250 Mg Cap) 250 mg PO QAM [facility] Stop: 01/08/21 08:59 Last Admin: 12/10/20 08:47 Dose: 250 mg Documented by: Senna/Docusate Sodium (Docusate Sodium/Senna 50/8.6mg Tab) 1 tab PO BID [facility] Stop: 01/07/21 20:59 Last Admin: 12/10/20 08:47 Dose: 1 tab Documented by: Spironolactone (Spironolactone 25 Mg Tab) 25 mg PO QAM [facility] Stop: 01/09/21 08:59 Last Admin: 12/10/20 09:38 Dose: 25 mg Documented by: PG Care Time/CCT Total # of Minutes Spent Total Time Spent with Patient: Total time spent is greater than 50% in coordination of care (as documented) at patient's floor/unit and/or counseling patient: Coding Level of Care Code 87775 Subseq Hosp Care Lvl 3 Diagnoses Acute systolic heart failure I50.21 Paroxysmal atrial fibrillation I48.0 LBBB (left bundle branch block) I44.7 Cardiomyopathy I42.9 CAD (coronary artery disease) I25.10 Mitral regurgitation I34.0
[2020-12-10] MEDS: AMITRIPTYLINE HCL 10 MG TAB PO SCH (20:40)
[2020-12-10] MEDS: DICLOFENAC SOD 1% GEL 100 GM TUBE EXT SCH (20:40)
[2020-12-11] MEDS: oxyCODONE HCL IR 5 MG TAB (IMMEDIATE RELEASE) PO PRN ×4 (00:15→20:21)
[2020-12-11] MEDS: ARTIFICIAL TEARS OP OINT 3.5 GM TUBE OPR SCH ×3 (07:46→20:10)
[2020-12-11] MEDS: AMIODARONE 200 MG TAB PO SCH (07:47)
[2020-12-11] MEDS: BUDESONIDE/FORMOTEROL FUMARATE 160/4.5 60 PUFFS/INHALER INH SCH ×2 (07:47→20:11)
[2020-12-11] MEDS: predniSONE 20 MG TAB PO SCH (07:47)
[2020-12-11] MEDS: APIXABAN 2.5 MG TAB PO SCH ×2 (07:48→20:09)
[2020-12-11] MEDS: DOCUSATE SODIUM/SENNA 50/8.6MG TAB PO SCH ×2 (07:48→20:10)
[2020-12-11] MEDS: SACUBITRIL-VALSARTAN 24-26 MG TAB PO SCH ×2 (07:48→20:07)
[2020-12-11] MEDS: DICLOFENAC SOD 1% GEL 100 GM TUBE EXT SCH ×2 (07:49→20:43)
[2020-12-11] MEDS: METOPROLOL SUCC 50MG EXT REL TAB PO SCH (07:50)
[2020-12-11] MEDS: SPIRONOLACTONE 25 MG TAB PO SCH (07:50)
[2020-12-11] MEDS: SACCHAROMYCES BOULARDII 250 MG CAP PO SCH (07:51)
[2020-12-11] MEDS: ISOSORBIDE MONO EXTENDED REL 30 MG TABCR PO SCH (07:52)
[2020-12-11] MEDS: PANTOprazole 40 MG TAB PO SCH (07:52)
[2020-12-11 08:50] LABS: Hematocrit (blood only) 31.8 % (37-47); Hemoglobin 9.6 g/dL (12.0-16.0); Mean Corpuscular Hemoglobin 26.1 pg (25-34); Mean Corpuscular Hgb Conc 30.2 g/dL (32-36); Mean Corpuscular Volume 86.4 fL (80-100); Mean Platelet Volume 9.1 fL (7.4-10.4); Platelet Count 494 K/uL (130-400); RDW Coefficient of Variation 16.4 % (11.5-14.5); Red Blood Count 3.68 M/uL (4.2-5.4); White Blood Count 17.64 K/uL (4.8-10.8)
[2020-12-11] MEDS ORDERED: FUROSEMIDE 20 MG in SYRINGE 0 ML IV SCH (09:00)
[2020-12-11 09:25] LABS: BUN Creatinine Ratio 54.3 (10-20); Calcium 8.9 mg/dl (8.5-10.1); Creatinine Clr Calc Pharmacy 74.5 ml/min; Est GFR (African American) 105.9 ml/min; Est GFR (Non-African American) 91.4 ml/min; Potassium 4.8 mmol/L (3.5-5.1)
[2020-12-11] MEDS: FUROSEMIDE 40 MG in SYRINGE 0 ML IV SCH ×2 (09:59→17:13)
--- NOTE | 2020-12-11 14:21 | Cardiology Progress Note ---
Date of Service December 11, 2020 Assessment & Plan (1) Acute systolic heart failure: (2) Paroxysmal atrial fibrillation: (3) LBBB (left bundle branch block): (4) Cardiomyopathy: (5) CAD (coronary artery disease): (6) Mitral regurgitation: Plan: ASSESSMENT/PLAN: 1. Acute systolic CHF: More acutely short of breath this morning which improved after Minaya catheter was placed as she had been retaining significant amounts of urine with Purewick in place. Recommend increasing Lasix to 40 mg IV twice daily. Monitor renal function and electrolytes closely. Spironolactone has been added given reduced LV systolic function, hypervolemia, and hypokalemia. Continue metoprolol succinate and titrate over time. Continue low-dose Entresto and titrate as an outpatient. Enrolled in heart failure program. 2. Paroxysmal atrial fibrillation: Continue amiodarone at 200 mg daily. Atrial fibrillation burden has significantly improved since Paula presentation. On anticoagulation for stroke risk reduction. 3. LBBB: Noted last hospitalization in November of 2020. Could be playing a role in her reduced LV systolic function as her QRS is significantly greater than 150 milliseconds. 4. Nonischemic cardiomyopathy: Has chronically had reduced LV systolic function but with mild worsening currently. Continue metoprolol succinate. Entresto has been initiated. If LV systolic function is not improved over time with optimal medical therapy, would consider biventricular ICD if applicable and agreeable by patient. Will defer this to her air motor repairer, Dr. Liu. 5. CAD: Mild and nonobstructive in 2018. No angina. Consider statin therapy. 6. Mitral regurgitation: Non severe. May appear worse on current echo given hypervolemic state. Can follow over time. 7. Disposition: Cardiology will continue to follow. Patient care discussed with Dr. Hall of the primary hospitalist service. Admission and Anticipated Discharge Date Admission Date: December 08, 2020 Subjective She was seen earlier this morning. She was more acutely short of breath this morning and describes that there was issues with her Purewick. A Minaya catheter was placed as a bladder scan demonstrated > 900 cc of urine. She states that her breathing improved after Minaya catheter was placed. She denies chest pain, syncope, near-syncope, palpitations. Her edema has improved. Review of systems: As above. Physical Exam Physical Exam: Gen.: No acute distress. Alert and oriented. HEENT: Anicteric sclera. Neck: No JVD. No hepatic jugular reflux noted. Cardiac: PMI was nondisplaced. No ventricular heave. Regular. Normal S1-S2. 1/6 systolic murmur. No rubs or gallops. Pulmonary: Decreased breath sounds at the bases, but otherwise clear to auscultation bilaterally without wheezes, rales, or rhonchi. Abdomen: Soft, nontender, nondistended, with normoactive bowel sounds. No bruits noted. Left abdominal prominence, chronic. Extremities: 2+ radial pulses bilaterally. 2+ posterior tibialis pulses bilaterally. 1+ bilateral lower extremity edema, but improving. No cyanosis. Psychiatric: Affect appears appropriate. Results & Data ([facility]) Vital Signs (Past 12 Hours) Vital Signs Temp Pulse Pulse Resp BP Pulse Ox 12/11/20 11:42 36.6 C 66 16 143/62 H 92 12/11/20 08:02 36.5 C 72 18 172/76 H 93 12/11/20 08:00 60 12/11/20 04:56 36.6 C 64 20 163/79 H 97 Intake & Output 12/09/20 12/10/20 12/11/20 12/12/20 06:59 06:59 06:59 06:59 Intake Total 495 / 495 968.333 / 968.333 730 / 730 Output Total 2200 / 2200 350 / 350 2255 / 2255 Balance -1705 / -1705 618.333 / 618.333 -1525 / -1525 Weight 115 lb 11.883 oz 121 lb 0.54 oz 115 lb 8.356 oz Laboratory Results Laboratory Results - last 24 hr 12/11/20 12/11/20 07:58 07:58 WBC 17.64 H RBC 3.68 L Hgb 9.6 L Hct 31.8 L MCV 86.4 MCH 26.1 MCHC 30.2 L RDW Std Deviation 52.0 H RDW Coeff of Chauncey 16.4 H Plt Count 494 H MPV 9.1 Sodium 131 L Potassium 4.8 Chloride 94 L Carbon Dioxide 32 Anion Gap 5.0 BUN 27 H Creatinine 0.49 L Est Cr Clr Drug Dosing 74.5 Est GFR ( Amer) 105.9 Est GFR (Non-Af Amer) 91.4 BUN/Creatinine Ratio 54.3 H Glucose 170 H Calcium 8.9 Magnesium 2.0 Diagnostic Findings Telemetry personally reviewed: Sinus rhythm. Medications Administered Current Inpatient Medications Acetaminophen (Acetaminophen 325 Mg Tab) 650 mg PO Q4H PRN PRN Reason: Pain or Fever Stop: 01/07/21 11:50 Last Admin: 12/10/20 16:33 Dose: 650 mg Documented by: Amiodarone HCl (Amiodarone 200 Mg Tab) 200 mg PO QAM [facility] Stop: 01/09/21 08:59 Last Admin: 12/11/20 07:47 Dose: 200 mg Documented by: Amitriptyline HCl (Amitriptyline Hcl 10 Mg Tab) 10 mg PO HS [facility] Stop: 01/07/21 20:59 Last Admin: 12/10/20 20:40 Dose: 10 mg Documented by: Apixaban (Apixaban 2.5 Mg Tab) 2.5 mg PO BID [facility] Stop: 01/07/21 20:59 Last Admin: 12/11/20 07:48 Dose: 2.5 mg Documented by: Artificial Tears (Artificial Tears) 1 drops OP DAILY PRN PRN Reason: Dry Eyes Stop: 01/07/21 12:11 Budesonide/Formoterol Fumarate (Budesonide/Formoterol Fumarate 160/4.5 60 Puffs/Inhaler) 2 puffs INH BID [facility] Stop: 01/07/21 20:59 Last Admin: 12/11/20 07:47 Dose: 2 puffs Documented by: Calcium Carbonate (Calcium Carbonate 500 Mg Chewable Tab) 500 mg PO DAILY PRN PRN Reason: Indigestion Stop: 01/07/21 12:03 Diclofenac Sodium (Diclofenac Sod 1% Gel 100 Gm Tube) 2 gm EXT BID [facility] Stop: 01/09/21 20:59 Last Admin: 12/11/20 07:49 Dose: Not Given Documented by: Docusate Sodium (Docusate Sodium 100 Mg Cap) 100 mg PO QAM PRN PRN Reason: Constipation Stop: 01/07/21 11:50 Furosemide 40 mg/ Syringe 4 mls @ 4 mls/min IV BID [facility] Stop: 01/10/21 13:59 Isosorbide Mononitrate (Isosorbide [place] Extended Rel 30 Mg Tabcr) 30 mg PO QAM [facility] Stop: 01/08/21 08:59 Last Admin: 12/11/20 07:52 Dose: 30 mg Documented by: Magnesium Citrate (Magnesium Citrate 296 Ml/Btl) 148 ml PO DAILY PRN PRN Reason: constipation Stop: 01/07/21 11:50 Metoprolol Succinate (Metoprolol Succ 50mg Ext Rel Tab) 100 mg PO [facility] Stop: 01/08/21 08:59 Last Admin: 12/11/20 07:50 Dose: 100 mg Documented by: Multi-Ingredient Cream (Artificial Tears Op Oint 3.5 Gm Tube) 1 appln OPR TID [facility] Stop: 01/08/21 10:29 Last Admin: 12/11/20 07:46 Dose: 1 appln Documented by: Nitroglycerin (Nitroglycerin Sl 0.4 Mg/Tab Tab) 0.4 mg SL Q5M PRN PRN Reason: Chest Pain Stop: 01/07/21 11:50 Ondansetron HCl (Ondansetron Inj 2 Mg/Ml 2 Ml Vial) 4 mg IV Q6H PRN PRN Reason: Nausea Stop: 01/07/21 11:50 Oxycodone HCl (Oxycodone Hcl Ir 5 Mg Tab (Immediate Release)) 5 mg PO Q4H PRN PRN Reason: Pain Stop: 12/22/20 11:50 Last Admin: 12/11/20 07:51 Dose: 5 mg Documented by: Pantoprazole Sodium (Pantoprazole 40 Mg Tab) 40 mg PO [facility] Stop: 01/08/21 08:59 Last Admin: 12/11/20 07:52 Dose: 40 mg Documented by: Prednisone (Prednisone 20 Mg Tab) 40 mg PO [facility] Stop: 01/09/21 17:14 Last Admin: 12/11/20 07:47 Dose: 40 mg Documented by: Saccharomyces Boulardii (Saccharomyces Boulardii 250 Mg Cap) 250 mg PO [facility] Stop: 01/08/21 08:59 Last Admin: 12/11/20 07:51 Dose: 250 mg Documented by: Sacubitril/Valsartan (Sacubitril-Valsartan 24-26 Mg Tab) 1 tab PO BID [facility] Stop: 01/10/21 08:59 Last Admin: 12/11/20 07:48 Dose: 1 tab Documented by: Senna/Docusate Sodium (Docusate Sodium/Senna 50/8.6mg Tab) 1 tab PO BID [facility] Stop: 01/07/21 20:59 Last Admin: 12/11/20 07:48 Dose: 1 tab Documented by: Spironolactone (Spironolactone 25 Mg Tab) 25 mg PO QAM [facility] Stop: 01/09/21 08:59 Last Admin: 12/11/20 07:50 Dose: 25 mg Documented by: At an Care Time/CCT Total # of Minutes Spent Total Time Spent with Patient: Total time spent is greater than 50% in coordination of care (as documented) at patient's floor/unit and/or counseling patient: Coding Level of Care Code 77494 Subseq Hosp Care Lvl 3 Diagnoses Acute systolic heart failure I50.21 Paroxysmal atrial fibrillation I48.0 LBBB (left bundle branch block) I44.7 Cardiomyopathy I42.9 CAD (coronary artery disease) I25.10 Mitral regurgitation I34.0
--- NOTE | 2020-12-11 16:42 | Palliative Care Consultation ---
Date of Consultation December 11, 2020 Assessment & Plan (1) Neck pain: with rheumatoid arthritis. We discussed maximizing nonopioid therapies which I think she is doing at this point with steroid, diclofenac gel and tylenol. She has been on hydrocodone and oxycodone in the past and found more sedation and less efficacy with hydrocodone. We discussed using oxycodone rather than percocet to avoid excessive tylenol. She does not have sedation or cognitive effects with opioids. Would consider routine dosing when she returns to assisted living environment as prn dosing is not always consistently available. She is agreeable to this. Will monitor prn use in hospital and adjust to routine dosing for discharge. (2) SOB (shortness of breath): improved with diuresis (3) Constipation: She does not tolerate miralax. She does have senna BID, could increase to two tabs bid. (4) Palliative care encounter: She talks frequently about being her own advocate and I asked her about who would advocated for her if she were unable to do so. She has a close friend who does this and notes that her nephew is her healthcare POA. She tells me that she has an advance directive and that she would not want CPR. Her current code status on the chart is full code and this was changed to DNR to reflect her wishes. She also has a POLST form on her chart that she completed with Dr. Herring earlier this year. It specifies DNR, limited interventions. I reviewed POLST with her and she tells me that her preference would be not to return to the hospital and to have focus of care be comfort if she were to become ill at [facility]. She does want to continue her current level of care and interventions. She would not want artificial nutrition and would want to determine antibiotics based on the situation. We completed a new updated POLST form which is on the chart. Discussed with Dr. Hall. (5) CHF (congestive heart failure): Heart failure chronicity: acute Heart failure type: unspecified Qualified Code(s): I50.9 - Heart failure, unspecified (6) Paroxysmal atrial fibrillation: (7) LBBB (left bundle branch block): (8) CAD (coronary artery disease): History of Present Illness Reason for Consultation: goals of care, symptom management Requesting Physician: Dr. Hall Attending Physician: Rip Hall MD History of Present Illness 80 yo lady with history of rheumatoid arthritis and HFrEF and paroxysmal atrial fibrillation. Her EF is 40-45%. She presented with hypoxic respiratory failure and is responding to diuresis. She denies feeling short of breath. She has been working with PT and is able to get from the bed to chair without dyspnea. She has had multiple hospitalizations, most recently from November 14 to . She has also been at [facility] and [facility] within the last several months. Most recently she is staying at [facility]. She has had severe pain in her neck, shoulders, hands and left knee. She had been considering left TKA but that was postponed due to covid. She has been on chronic steroids and notes that symptoms are worse when steroid is tapered. She is currently on 40mg daily. She is also using diclofenac gel which is effective. She has been on opioids but has concerns about these due to sedation, constipation and concerns about addiction. Allergies Allergy/AdvReac Type Severity Reaction Status Date / Time ciprofloxacin Allergy Severe PASSED Verified 12/08/20 08:19 OUT, SEVERE RXN PER PATIENT nut - unspecified Allergy Intermediate HIVES Verified 12/08/20 08:19 banana Allergy Mild RASH Verified 12/08/20 08:19 latex Allergy Mild RASH Verified 12/08/20 08:19 moxifloxacin Allergy Mild PAIN IN Verified 12/08/20 08:19 HEEL nickel Allergy Mild RASH ON Verified 12/08/20 08:19 EARS WITH EARRINGS WITH NICKEL Sulfa (Sulfonamide Allergy Mild Rash Verified 12/08/20 08:19 Antibiotics) fluconazole AdvReac Intermediate TACHYCARDIA, Verified 12/08/20 08:19 HAIR LOSS adhesive AdvReac Mild CONTACT Verified 12/08/20 08:19 DERMATITIS codeine AdvReac Mild DIZZINESS Verified 12/08/20 08:19 hydrocodone AdvReac Dizziness Verified 12/08/20 08:19 Home Medications Medication Instructions Recorded Confirmed Type prednisone 1 mg tablet 2 mg PO QAM tab 08/20/20 12/08/20 History acetaminophen 325 mg tablet 650 mg PO Q8H PRN MDD 3 GRAMS/24 09/13/20 12/08/20 History (Tylenol) HOURS calcium carbonate 500 mg calcium 500 mg PO DAILY PRN 09/13/20 12/08/20 History (1,250 mg) chewable tablet prednisone 5 mg tablet 5 mg PO QAM 09/13/20 12/08/20 History sennosides 8.6 mg-docusate sodium 1 tab-cap PO BID 09/13/20 12/08/20 History 50 mg tablet Saccharomyces boulardii 250 mg 250 mg PO QAM 10/15/20 12/08/20 History capsule (Florastor) amitriptyline 10 mg tablet 10 mg PO HS 10/15/20 12/08/20 History budesonide-formoterol HFA 160 2 puff INHALATION BID17 10/15/20 12/08/20 History mcg-4.5 mcg/actuation aerosol inhaler (Symbicort) carboxymethylcellulose sodium 1 % 1 drp OPB DAILY PRN 10/15/20 12/08/20 History eye drops (Artificial Tears (carboxymethylcellulose)) hydrocodone 5 mg-acetaminophen 325 0.5 tab PO Q6H PRN #60 tab 11/11/20 12/08/20 Rx mg tablet docusate sodium 100 mg capsule 100 mg PO QAM PRN 11/14/20 12/08/20 History oxycodone 5 mg tablet 5 mg PO Q4H PRN #120 tab 11/14/20 12/08/20 Rx isosorbide mononitrate 30 mg 30 mg PO QAM #30 tab 11/21/20 12/08/20 Rx tablet,extended release 24 hr metoprolol succinate 50 mg 100 mg PO QAM #30 tab 11/21/20 12/08/20 Rx tablet,extended release 24 hr apixaban 2.5 mg tablet (Eliquis) 2.5 mg PO BID 11/28/20 12/08/20 History amiodarone 200 mg tablet 400 mg PO QAM 12/08/20 12/08/20 History hydrochlorothiazide 25 mg tablet 25 mg PO QAM 12/08/20 12/08/20 History nitroglycerin 0.4 mg sublingual 0.4 mg SUBLINGUAL Q5M PRN 12/08/20 12/08/20 History tablet pantoprazole 40 mg tablet,delayed 40 mg PO QAM 12/08/20 12/08/20 History release Patient History Medical History Acute diverticulitis Asthma Atopic dermatitis Bronchitis CAD (coronary artery disease) Diverticula of colon Duodenal ulcer Eczema 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 Stroke like symptoms. History of intestinal obstruction HTN (hypertension) Hx of lower gastrointestinal bleeding 2019-RESOLVED Incisional hernia without obstruction or gangrene Intraoperative ureteral injury PT DENIES Long-term use of hydroxychloroquine Mitral regurgitation Multiple pulmonary nodules DUE TO RA Osteoporosis Peptic ulcer disease Seropositive rheumatoid arthritis Sjogrens syndrome SOB (shortness of breath) on exertion Ventricular tachycardia Surgical History History of colonoscopy History of colostomy History of colostomy reversal ETT#7, Glidescope #3, Grade 1 View - attempt x 1, atraumatic History of esophagogastroduodenoscopy (EGD) History of facial surgery History of partial colectomy History of tonsillectomy and adenoidectomy History of total knee arthroplasty RIGHT Hx of right heart catheterization 2018 [facility] > NO STENTS Status post right foot surgery 2012 AT [facility] Ventral hernia with bowel obstruction Family History Mother Asthma Heart disease Renal failure Brother Heart disease Father Pneumonia Other History of section Ventral hernia with bowel obstruction Social History Smoking Status: Former smoker Years Smoked: 2; Second Hand Exposure: No; Hx Alcohol Use: No Hx Substance Use: No Preferred Language: Korean Communication Ability: Effective Visual Impairment: No Limitations Faceter Required: No Beliefs That Will Affect Care: None marital status: / Current Living Situation: Personal Care Facility current occupational status: retired Feels Safe at Home: Yes Seatbelt Use: always Assistive Devices: Oxygen - Continuous Review of Systems Review of Systems: [place] Symptom Assessment Scale Pain 2/3 Dyspnea 1/3 Fatigue 2/3 Nausea 0/3 Anxiety 1/3 Drowsiness 0/3 Constipation Palliative Performance Score 40% Physical Exam Constitutional: no acute distress Eyes: assymetric ENMT: craniofacial abnormality Respiratory: normal respiratory effort; no labored breathing Cardiovascular: Rate/Rhythm: regular rate and regular rhythm Gastrointestinal (Abdomen): Inspection/Auscultation: abdomen not distended Neurologic: awake; not confused Results & Data ([facility]) Vital Signs (Past 12 Hours) Vital Signs Temp Pulse Pulse Resp BP Pulse Ox Pulse Ox 12/11/20 14:23 99 12/11/20 11:42 97.9 F 66 16 143/62 H 92 12/11/20 08:02 97.7 F 72 18 172/76 H 93 12/11/20 08:00 60 12/11/20 04:56 97.9 F 64 20 163/79 H 97 PG Care Time/CCT Total # of Minutes Spent Total Time Spent: 75 Total Time Spent with Patient: Total time spent is greater than 50% in coordination of care (as documented) at patient's floor/unit and/or counseling patient: symptom management, goals of care, code status, POLST Coding Level of Care Code 45007 Initial Inpt Care Lvl 3 Diagnoses Neck pain M54.2 Palliative care encounter Z51.5 Constipation K59.00 CHF (congestive heart failure) I50.9 Heart failure chronicity: acute Heart failure type: unspecified Paroxysmal atrial fibrillation I48.0 LBBB (left bundle branch block) I44.7 SOB (shortness of breath) R06.02 CAD (coronary artery disease) I25.10
--- NOTE | 2020-12-11 17:16 | Hospitalist Progress Note ---
Date of Service December 11, 2020 Assessment & Plan (1) Acute systolic heart failure: Plan: EF was 40 - 45% in 11/2020. - Lasix started IV initially; now switched to oral. - Cardiology consulted: Agree with further diuresis. Presently seems about the same to me from yesterday. Increased to Lasix 40 mg IV BID starting this afternoon. - Good UOP. (2) Atrial fibrillation: Plan: Presently rate-controlled. - Continue amiodarone, metoprolol succinate, and apixaban (3) Chronic use of steroids: Plan: Due to rheumatoid arthritis. Presently with significant pain in the neck and hands. - Continue home Plaquenil - Discussed with Dr. Andrade on 12/10. - Increase prednisone to 40 mg PO daily x 1 week, then taper 10 mg every week. - Also using Voltaren gel BID on the hands which is helping. (4) CAD (coronary artery disease): Plan: No present chest pain. Very mild nonobstructive CAD noted on 2018 cardiac catheterization. - Continue Imdur, metoprolol (5) Wide-complex tachycardia: Plan: Thought to be atrial arrhythmia with aberrancy. Presently in normal sinus with a LBBB. - Continue on amiodarone, replete magnesium (6) Anemia: Plan: Baseline hgb ~8-9. Anemia chronic disease. - At baseline (7) GERD (gastroesophageal reflux disease): Plan: No report of GERD today. - Continue Protonix (8) Chronic obstructive asthma: Plan: Patient feels that the Breo inhaler is difficult for her to use with her anatomical abnormalities of her craniofacial changes. Not in exacerbation. - Continue Symbicort (9) DVT prophylaxis: Plan: Apixaban Admission and Anticipated Discharge Date Admission Date: December 08, 2020 Subjective Doing well today. The Voltaren gel is working some along with the prednisone. She feels her hands are improving. Reports no fevers/chills, chest pain, shortness of breath, abdominal pain, nausea, or vomiting. Physical Exam Constitutional: WD/WN, vitals as above Eyes: EOM intact bilaterally; no conjunctival abnormality ENMT: external ear and nose normal, oropharynx normal Neck: trachea midline, no thyromegaly normal visual inspection Respiratory: normal respiratory effort, lungs clear to auscultation no respiratory distress Cardiovascular: RRR, no murmur, no edema Gastrointestinal (Abdomen): Inspection/Auscultation: abdomen normal to inspection; abdomen not distended Musculoskeletal: no cyanosis or clubbing, extremities motor strength 5/5 Skin: no rashes, warm and dry Neurologic: moves all extremities and awake Psychiatric: Orientation: alert, oriented to person and cooperative Results & Data Results & Data ([place]) Vital Signs (Past 12 Hours) Vital Signs Temp Pulse Pulse Resp BP Pulse Ox Pulse Ox 12/11/20 16:58 36.7 C 65 19 126/67 94 12/11/20 14:23 99 12/11/20 11:42 36.6 C 66 16 143/62 H 92 12/11/20 08:02 36.5 C 72 18 172/76 H 93 12/11/20 08:00 60 PG Care Time/CCT Total # of Minutes Spent Total Time Spent with Patient: Total time spent is greater than 50% in vocational coordinator rdination of care (as documented) at patient's floor/unit and/or counseling patient: Coding Level of Care Code 51690 Subseq Hosp Care Lvl 2 Diagnoses Acute systolic heart failure I50.21 Atrial fibrillation I48.91 Chronic use of steroids CAD (coronary artery disease) I25.10 Wide-complex tachycardia I47.2 Anemia D64.9 GERD (gastroesophageal reflux disease) K21.9 Chronic obstructive asthma J44.9 DVT prophylaxis Z29.9
[2020-12-11] MEDS: AMITRIPTYLINE HCL 10 MG TAB PO SCH (20:08)
[2020-12-11] MEDS: DOCUSATE SODIUM 100 MG CAP PO PRN (22:42)
[2020-12-12] MEDS: oxyCODONE HCL IR 5 MG TAB (IMMEDIATE RELEASE) PO PRN ×4 (04:48→21:56)
[2020-12-12] MEDS: APIXABAN 2.5 MG TAB PO SCH ×2 (08:40→20:17)
[2020-12-12] MEDS: SPIRONOLACTONE 25 MG TAB PO SCH (08:40)
[2020-12-12] MEDS: DOCUSATE SODIUM/SENNA 50/8.6MG TAB PO SCH ×2 (08:40→20:17)
[2020-12-12] MEDS: AMIODARONE 200 MG TAB PO SCH (08:40)
[2020-12-12] MEDS: METOPROLOL SUCC 50MG EXT REL TAB PO SCH (08:40)
[2020-12-12] MEDS: PANTOprazole 40 MG TAB PO SCH (08:40)
[2020-12-12] MEDS: SACCHAROMYCES BOULARDII 250 MG CAP PO SCH (08:41)
[2020-12-12] MEDS: BUDESONIDE/FORMOTEROL FUMARATE 160/4.5 60 PUFFS/INHALER INH SCH ×2 (08:41→20:18)
[2020-12-12] MEDS: SACUBITRIL-VALSARTAN 24-26 MG TAB PO SCH ×2 (08:41→20:18)
[2020-12-12] MEDS: ISOSORBIDE MONO EXTENDED REL 30 MG TABCR PO SCH (08:41)
[2020-12-12] MEDS: ARTIFICIAL TEARS OP OINT 3.5 GM TUBE OPR SCH ×3 (08:42→20:16)
[2020-12-12] MEDS: FUROSEMIDE 40 MG in SYRINGE 0 ML IV SCH ×2 (08:42→17:14)
[2020-12-12] MEDS: DICLOFENAC SOD 1% GEL 100 GM TUBE EXT SCH ×2 (08:42→20:16)
[2020-12-12] MEDS: predniSONE 20 MG TAB PO SCH (08:43)
[2020-12-12 09:00] LABS: Hematocrit (blood only) 31.5 % (37-47); Hemoglobin 9.5 g/dL (12.0-16.0); Mean Corpuscular Hgb Conc 30.2 g/dL (32-36); Mean Corpuscular Volume 86.3 fL (80-100); Mean Platelet Volume 9.1 fL (7.4-10.4); Platelet Count 537 K/uL (130-400); RDW Coefficient of Variation 16.5 % (11.5-14.5); RDW Standard Deviation 52.4 fL (36.4-46.3); Red Blood Count 3.65 M/uL (4.2-5.4); White Blood Count 20.65 K/uL (4.8-10.8)
[2020-12-12 09:51] LABS: BUN Creatinine Ratio 52.6 (10-20); Creatinine Clr Calc Pharmacy 64.7 ml/min; Est GFR (African American) 101.3 ml/min; Est GFR (Non-African American) 87.4 ml/min; Magnesium 1.6 mg/dl (1.8-2.4); Potassium 3.7 mmol/L (3.5-5.1)
--- NOTE | 2020-12-12 12:02 | Cardiology Progress Note ---
Date of Service December 12, 2020 Assessment & Plan (1) Acute systolic heart failure: (2) Paroxysmal atrial fibrillation: (3) LBBB (left bundle branch block): (4) Cardiomyopathy: (5) CAD (coronary artery disease): (6) Mitral regurgitation: Plan: ASSESSMENT/PLAN: 1. Acute systolic CHF: Subjectively improved. She is affecting a good diuresis. We will need to monitor for evidence of intravascular depletion. Given the diuresis recorded I would expect some improvement. If she continues to have worsening symptoms with evidence of upper airway congestion, a second etiology for her dyspnea should be entertained. 2. Paroxysmal atrial fibrillation: Continue amiodarone at 200 mg daily. On anticoagulation for stroke risk reduction. 3. LBBB: Noted last hospitalization in November of 2020. Could be playing a role in her reduced LV systolic function as her QRS is significantly greater than 150 milliseconds. 4. Nonischemic cardiomyopathy: Has chronically had reduced LV systolic function but with mild worsening currently. Continue metoprolol succinate. Entresto has been initiated. 5. CAD: Mild and nonobstructive in 2018. No angina. Consider statin therapy. 6. Mitral regurgitation: Non severe. May appear worse on current echo given hypervolemic state. Can follow over time. I think we will continue to monitor her progress with diuresis. We will continue her on Entresto and metoprolol succinate. She continues to have severely reduced LV systolic function and certainly if she is symptomatic we should consider device therapy. I did discuss the option of a biventricular pacemaker and/or defibrillator with her today. She seems amenable to the procedure should it be recommended. Admission and Anticipated Discharge Date Admission Date: December 08, 2020 Subjective This morning the patient clinically feeling better. She states that her breathing is somewhat easier. She appears to be coughing more forcefully and has a productive cough. She was able to sleep last night. Review of Systems Review of Systems: Per HPI Physical Exam Physical Exam: She is alert and oriented x3. Mood affect appear normal. She answered all questions appropriately. HEENT: Sclerae are anicteric. Neuro: Cranial nerves intact. Facial palsy noted Lungs: Poor air movement. Crackles at the bases bilaterally. Prominent upper airway congestion. Respiratory effort without use of accessory muscles. Cardiac: The rhythm was regular. No murmur. Skin: There are no rashes noted on examination today. Results & Data ([facility]) Vital Signs (Past 12 Hours) Vital Signs Temp Pulse Pulse Resp BP Pulse Ox 12/12/20 11:26 36.9 C 84 16 138/76 97 12/12/20 08:18 36.5 C 79 18 152/63 H 96 12/12/20 07:00 61 12/12/20 03:28 36.5 C 68 19 152/71 H 96 12/12/20 00:17 70 Laboratory Results Abnormal Lab Results 12/12/20 12/12/20 08:20 08:20 WBC 20.65 H RBC 3.65 L Hgb 9.5 L Hct 31.5 L MCV 86.3 MCH 26.0 MCHC 30.2 L RDW Std Deviation 52.4 H RDW Coeff of Chauncey 16.5 H Plt Count 537 H MPV 9.1 Sodium 135 L Potassium 3.7 D Chloride 96 L Carbon Dioxide 34 H Anion Gap 5.0 BUN 30 H Creatinine 0.56 L Est Cr Clr Drug Dosing 64.7 Est GFR ( Amer) 101.3 Est GFR (Non-Af Amer) 87.4 BUN/Creatinine Ratio 52.6 H Glucose 128 H Calcium 9.0 Magnesium 1.6 L PG Care Time/CCT Total # of Minutes Spent Total Time Spent with Patient: Total time spent is greater than 50% in coordination of care (as documented) at patient's floor/unit and/or counseling patient: Coding Level of Care Code 02449 Subseq Hosp Care Lvl 2 Diagnoses Acute systolic heart failure I50.21 Paroxysmal atrial fibrillation I48.0 LBBB (left bundle branch block) I44.7 Cardiomyopathy I42.9 CAD (coronary artery disease) I25.10 Mitral regurgitation I34.0
[2020-12-12] MEDS: DOCUSATE SODIUM 100 MG CAP PO PRN (12:16)
--- NOTE | 2020-12-12 15:21 | Hospitalist Progress Note ---
Date of Service December 12, 2020 Assessment & Plan (1) Acute systolic heart failure: Plan: EF was 40 - 45% in 11/2020. - Lasix started IV initially; now switched to oral. - Cardiology consulted: Agree with further diuresis. Presently seems about the same to me from yesterday. Increased to Lasix 40 mg IV BID starting this afternoon. - Good UOP. Will need to watch Cr to make sure we don't over-diurese (intravascularly deplete) her. (2) Atrial fibrillation: Plan: Presently rate-controlled. - Continue amiodarone, metoprolol succinate, and apixaban (3) Chronic use of steroids: Plan: Due to rheumatoid arthritis. Presented with significant pain in the neck and hands. Improving daily. - Continue home Plaquenil - Discussed with Dr. Andrade on 12/10. - Increase prednisone to 40 mg PO daily x 1 week, then taper 10 mg every week. (Drop steroid to 30 mg on 12/17/2020). - Also using Voltaren gel BID on the hands which is helping. I think we're making progress. (4) CAD (coronary artery disease): Plan: No present chest pain. Very mild nonobstructive CAD noted on 2018 cardiac catheterization. - Continue Imdur, metoprolol (5) Wide-complex tachycardia: Plan: Thought to be atrial arrhythmia with aberrancy. Presently in normal sinus with a LBBB. - Continue on amiodarone, replete magnesium PRN. (6) Anemia: Plan: Baseline hgb ~8-9. Anemia chronic disease. - At baseline (7) GERD (gastroesophageal reflux disease): Plan: No report of GERD today. - Continue Protonix (8) Chronic obstructive asthma: Plan: Patient feels that the Breo inhaler is difficult for her to use with her anatomical abnormalities of her craniofacial changes. Not in exacerbation. - Continue Symbicort (9) DVT prophylaxis: Plan: Apixaban Admission and Anticipated Discharge Date Admission Date: December 08, 2020 Subjective Feeling better still today. Her hands continue to improve. She does have a mildly productive cough though which is relatively new. Reports no fevers/chills, chest pain, shortness of breath, abdominal pain, nausea, or vomiting. Physical Exam Constitutional: WD/WN, vitals as above Eyes: EOM intact bilaterally; no conjunctival abnormality ENMT: external ear and nose normal, oropharynx normal Neck: trachea midline, no thyromegaly normal visual inspection Respiratory: normal respiratory effort, lungs clear to auscultation + cough; no respiratory distress, no labored breathing and not tachypneic Cardiovascular: RRR, no murmur, no edema Gastrointestinal (Abdomen): Inspection/Auscultation: abdomen normal to inspection; abdomen not distended Musculoskeletal: no cyanosis or clubbing, extremities motor strength 5/5 Skin: no rashes, warm and dry Neurologic: moves all extremities and awake Psychiatric: Orientation: alert, oriented to person and cooperative Results & Data Results & Data ([facility]) Vital Signs (Past 12 Hours) Vital Signs Temp Pulse Pulse Resp BP Pulse Ox 12/12/20 14:55 65 12/12/20 11:26 36.9 C 84 16 138/76 97 12/12/20 08:18 36.5 C 79 18 152/63 H 96 12/12/20 07:00 61 12/12/20 03:28 36.5 C 68 19 152/71 H 96 PG Care Time/CCT Total # of Minutes Spent Total Time Spent with Patient: Total time spent is greater than 50% in coordination of care (as documented) at patient's floor/unit and/or counseling patient: Coding Level of Care Code 70968 Subseq Hosp Care Lvl 2 Diagnoses Acute systolic heart failure I50.21 Atrial fibrillation I48.91 Chronic use of steroids CAD (coronary artery disease) I25.10 Wide-complex tachycardia I47.2 Anemia D64.9 GERD (gastroesophageal reflux disease) K21.9 Chronic obstructive asthma J44.9 DVT prophylaxis Z29.9
[2020-12-12] MEDS: POTASSIUM CHLORIDE CRTAB 20 MEQ TABCR PO SCH ×2 (16:23→20:16)
[2020-12-12] MEDS: MAGNESIUM SULFATE / D5W 1 GM/100 ML BAG IV SCH ×4 (16:23→21:56)
[2020-12-12] MEDS: AMITRIPTYLINE HCL 10 MG TAB PO SCH (20:18)
[2020-12-13] MEDS: oxyCODONE HCL IR 5 MG TAB (IMMEDIATE RELEASE) PO PRN (08:10)
[2020-12-13] MEDS: BUDESONIDE/FORMOTEROL FUMARATE 160/4.5 60 PUFFS/INHALER INH SCH (08:14)
[2020-12-13] MEDS: AMIODARONE 200 MG TAB PO SCH (08:16)
[2020-12-13] MEDS: FUROSEMIDE 40 MG in SYRINGE 0 ML IV SCH (08:16)
[2020-12-13] MEDS: APIXABAN 2.5 MG TAB PO SCH ×2 (08:17→20:59)
[2020-12-13] MEDS: ARTIFICIAL TEARS OP OINT 3.5 GM TUBE OPR SCH ×3 (08:18→21:00)
[2020-12-13] MEDS: METOPROLOL SUCC 50MG EXT REL TAB PO SCH (08:19)
[2020-12-13] MEDS: SACUBITRIL-VALSARTAN 24-26 MG TAB PO SCH ×2 (08:21→20:59)
[2020-12-13] MEDS: POTASSIUM CHLORIDE CRTAB 20 MEQ TABCR PO SCH ×2 (08:21→21:06)
[2020-12-13] MEDS: predniSONE 20 MG TAB PO SCH (08:22)
[2020-12-13] MEDS: SACCHAROMYCES BOULARDII 250 MG CAP PO SCH (08:24)
[2020-12-13] MEDS: DOCUSATE SODIUM/SENNA 50/8.6MG TAB PO SCH ×2 (08:24→21:05)
[2020-12-13] MEDS: SPIRONOLACTONE 25 MG TAB PO SCH (08:24)
[2020-12-13] MEDS: PANTOprazole 40 MG TAB PO SCH (08:24)
[2020-12-13] MEDS: DICLOFENAC SOD 1% GEL 100 GM TUBE EXT SCH ×2 (08:25→20:59)
[2020-12-13] MEDS: ISOSORBIDE MONO EXTENDED REL 30 MG TABCR PO SCH (08:25)
--- NOTE | 2020-12-13 08:55 | XRay Report ---
XR chest 1V portable CLINICAL HISTORY: Cough COMPARISON STUDY: Chest CT October 16, 2020. Chest radiograph December 08, 2020. FINDINGS: Lung volumes are normal. There is no pneumothorax. Cardiomegaly is again noted. Small bilat eral pleural effusions are noted. There are bibasilar opacities. These have slightly improved since e xam of December 08, 2020. There is a right upper lung opacity which has slightly increased. Interstitial thickening has slightly improved. IMPRESSION: 1. Persistent, but slightly improved, pulmonary edema. 2. Small bilateral pleural effusions with associated bibasilar opacities which have slightly decrease d. These may reflect atelectasis or consolidation. 3. Interval development of right upper lung airspace opacity which favors an infectious process. ACT 112: Negative or not required by law. Electronically signed by: Josh Flannery M.D. 12/13/2020 8:53 AM
[2020-12-13 10:33] LABS: Hemoglobin 9.6 g/dL (12.0-16.0); Mean Corpuscular Hemoglobin 26.2 pg (25-34); Mean Corpuscular Volume 87.4 fL (80-100); Mean Platelet Volume 8.9 fL (7.4-10.4); Platelet Count 550 K/uL (130-400); RDW Coefficient of Variation 16.8 % (11.5-14.5); RDW Standard Deviation 54.2 fL (36.4-46.3); Red Blood Count 3.66 M/uL (4.2-5.4); White Blood Count 21.48 K/uL (4.8-10.8)
[2020-12-13 10:58] LABS: BUN Creatinine Ratio 66.1 (10-20); Calcium 8.8 mg/dl (8.5-10.1); Creatinine Clr Calc Pharmacy 73.9 ml/min; Est GFR (African American) 105.9 ml/min; Est GFR (Non-African American) 91.4 ml/min; Magnesium 2.2 mg/dl (1.8-2.4)
[2020-12-13] MEDS: cefTRIAXone SODIUM 1,000 MG in DEXTROSE 5% 50 ML IV SCH (11:59)
[2020-12-13] MEDS ORDERED: GLYCERIN ADULT 12 SUPP/BOX SUPP PR PRN (12:25)
[2020-12-13] MEDS: DOXYCYCLINE HYCLATE 100 MG in DEXTROSE 5% 100 ML IV SCH (12:29)
[2020-12-13] MEDS ORDERED: GLYCERIN ADULT 12 SUPP/BOX SUPP PR ONE (12:45)
--- NOTE | 2020-12-13 12:49 | Palliative Care Progress Note ---
Date of Service December 13, 2020 Assessment & Plan (1) Neck pain: Plan: Her hope is to return to [facility]. We have discussed routine dosing of oxycodone considering her consistent dosing pattern. She is agreeable to this. She understands that she can refuse medication if she feels that she doesn't need it. (2) Constipation: Plan: Limited mobility, decreased po intake, chronic opioid use. Try suppository today. (3) Palliative care encounter: Plan: She is DNR/DNI with goal to not return to hospital unless comfort needs can't be met at [facility]. POLST is on the chart. (4) CHF (congestive heart failure): (5) Atrial fibrillation: (6) Ventricular tachycardia: (7) CAD (coronary artery disease): Admission and Anticipated Discharge Date Admission Date: December 08, 2020 Subjective Feeling tired today. Grimaces with movement of her left shoulder. She has been using 4 oxycodone per day in the last two days. No BM since admission. Review of Systems Review of Systems: [place] Symptom Assessment Scale Pain 2/3 Dyspnea 1/3 Fatigue 2/3 Nausea 0/3 Anxiety 1/3 Drowsiness 0/3 Palliative Performance Score 40% Ear, Nose, Mouth, Throat: dry mouth Physical Exam Constitutional: + ill appearing; no acute distress ENMT: Mouth: + dry oral mucous membranes Respiratory: normal respiratory effort; no labored breathing Cardiovascular: Rate/Rhythm: regular rate and regular rhythm Musculoskeletal: ulnar deviation b/l hands Neurologic: awake; not confused Results & Data ([facility]) Vital Signs (Past 12 Hours) Vital Signs Temp Pulse Pulse Resp BP Pulse Ox 12/13/20 11:45 98.4 F 74 18 130/68 99 12/13/20 07:28 67 12/13/20 05:00 98.6 F 82 18 142/70 H 98 12/13/20 03:34 97.5 F L 67 19 150/70 H 97 PG Care Time/CCT Total # of Minutes Spent Total Time Spent: 35 Total Time Spent with Patient: Total time spent is greater than 50% in coordination of care (as documented) at patient's floor/unit and/or counseling patient: symptom management Coding Level of Care Code 42630 Subseq Hosp Care Lvl 3 Diagnoses Neck pain M54.2 Constipation K59.00 Palliative care encounter Z51.5 CHF (congestive heart failure) I50.9 Heart failure chronicity: acute Heart failure type: unspecified Atrial fibrillation I48.91 Ventricular tachycardia I47.2 CAD (coronary artery disease) I25.10 (1) CHF (congestive heart failure) Heart failure chronicity: acute Heart failure type: unspecified Qualified Code(s): I50.9 - Heart failure, unspecified
[2020-12-13] MEDS: oxyCODONE HCL IR 5 MG TAB (IMMEDIATE RELEASE) PO SCH ×3 (13:39→21:05)
--- NOTE | 2020-12-13 16:29 | Hospitalist Progress Note ---
Date of Service December 13, 2020 Assessment & Plan (1) Pneumonia: Plan: Moist cough and just feeling more lethargic on 12/13. - Repeat CXR indicates new focal pneumonia, though procalcitonin is negative. => Started ceftriaxone & doxy (prolonged QTc) - Monitor (2) Acute systolic heart failure: Plan: EF was 40 - 45% in 11/2020. - Lasix started IV initially; now switched to oral. - Cardiology consulted: Switched to Lasix 40 mg PO daily on 12/13. Appears euvolemic at this time. (3) Atrial fibrillation: Plan: Presently rate-controlled. - Continue amiodarone, metoprolol succinate, and apixaban (4) Chronic use of steroids: Plan: Due to rheumatoid arthritis. Presented with significant pain in the neck and hands. Improving daily. - Continue home Plaquenil - Discussed with Dr. Andrade on 12/10. - Increase prednisone to 40 mg PO daily x 1 week, then taper 10 mg every week. (Drop steroid to 30 mg on 12/17/2020). - Also using Voltaren gel BID on the hands which is helping. I think we're making progress. (5) CAD (coronary artery disease): Plan: No present chest pain. Very mild non-obstructive CAD noted on 2018 cardiac catheterization. - Continue Imdur, metoprolol (6) Wide-complex tachycardia: Plan: Thought to be atrial arrhythmia with aberrancy. Presently in normal sinus with a LBBB. - Continue on amiodarone, replete magnesium PRN. (7) Anemia: Plan: Baseline hgb ~8-9. Anemia chronic disease. - At baseline (8) GERD (gastroesophageal reflux disease): Plan: No report of GERD today. - Continue Protonix (9) Chronic obstructive asthma: Plan: Patient feels that the Breo inhaler is difficult for her to use with her anatomical abnormalities of her craniofacial changes. Not in exacerbation. - Continue Symbicort (10) DVT prophylaxis: Plan: Apixaban Admission and Anticipated Discharge Date Admission Date: December 08, 2020 Subjective Feeling more tired today. Still with cough. Reports no fevers/chills, chest pain, abdominal pain, nausea, or vomiting. Physical Exam Constitutional: WD/WN, vitals as above Eyes: EOM intact bilaterally; no conjunctival abnormality ENMT: external ear and nose normal, oropharynx normal Neck: trachea midline, no thyromegaly normal visual inspection Respiratory: normal respiratory effort, lungs clear to auscultation + cough; no respiratory distress, no labored breathing and not tachypneic Cardiovascular: RRR, no murmur, no edema Gastrointestinal (Abdomen): Inspection/Auscultation: abdomen normal to inspection; abdomen not distended Musculoskeletal: no cyanosis or clubbing, extremities motor strength 5/5 Skin: no rashes, warm and dry Neurologic: moves all extremities and awake Psychiatric: Orientation: alert, oriented to person and cooperative Results & Data Results & [facility] ([facility]) Vital Signs (Past 12 Hours) Vital Signs Temp Pulse Pulse Resp BP Pulse Ox 12/13/20 11:45 36.9 C 74 18 130/68 99 12/13/20 07:28 67 12/13/20 05:00 37.0 C 82 18 142/70 H 98 PG Care Time/CCT Total # of Minutes Spent Total Time Spent with Patient: Total time spent is greater than 50% in coordination of care (as documented) at patient's floor/unit and/or counseling patient: Coding Level of Care Code 62925 Subseq Hosp Care Lvl 3 Diagnoses Acute systolic heart failure I50.21 Atrial fibrillation I48.91 Chronic use of steroids CAD (coronary artery disease) I25.10 Wide-complex tachycardia I47.2 Anemia D64.9 GERD (gastroesophageal reflux disease) K21.9 Chronic obstructive asthma J44.9 DVT prophylaxis Z29.9 Pneumonia J18.9
--- NOTE | 2020-12-13 17:22 | Cardiology Progress Note ---
Date of Service December 13, 2020 Assessment & Plan (1) Acute systolic heart failure: (2) Paroxysmal atrial fibrillation: (3) LBBB (left bundle branch block): (4) Cardiomyopathy: (5) CAD (coronary artery disease): (6) Mitral regurgitation: Plan: ASSESSMENT/PLAN: 1. Acute systolic CHF: Subjectively improved. Switched to oral diuretic. Will monitor response. Continue BB and Entresto 2. Paroxysmal atrial fibrillation: Continue amiodarone at 200 mg daily. On anticoagulation for stroke risk reduction. 3. LBBB: Noted last hospitalization in November of 2020. Could be playing a role in her reduced LV systolic function as her QRS is significantly greater than 150 milliseconds. 4. Nonischemic cardiomyopathy: Has chronically had reduced LV systolic function but with mild worsening currently. Continue metoprolol succinate. Entresto has been initiated. 5. CAD: Mild and nonobstructive in 2018. No angina. Consider statin therapy. 6. Mitral regurgitation: Non severe. May appear worse on current echo given hypervolemic state. Can follow over time. She appears improved. WIll continue current therapy. WIll address reduced LV function and device therapy as an outpatient. Admission and Anticipated Discharge Date Admission Date: December 08, 2020 Subjective Breathing improved. Still some difficulty ambulating. Review of Systems Review of Systems: Shoulder pain Physical Exam Physical Exam: She is alert and oriented x3. Mood affect appear normal. She answered all questions appropriately. HEENT: Sclerae are anicteric. Neuro: Cranial nerves intact. Facial palsy noted Lungs: Normal respiratory effort Cardiac: The rhythm was regular. No murmur. Skin: There are no rashes noted on examination today. Results & Data ([facility]) Vital Signs (Past 12 Hours) Vital Signs Temp Pulse Pulse Resp BP Pulse Ox 12/13/20 17:05 36.9 C 64 18 130/79 98 12/13/20 16:54 74 12/13/20 11:45 36.9 C 74 18 130/68 99 12/13/20 07:28 67 Laboratory Results Abnormal Lab Results 12/13/20 12/13/20 12/13/20 10:10 10:10 10:10 WBC 21.48 H RBC 3.66 L Hgb 9.6 L Hct 32.0 L MCV 87.4 MCH 26.2 MCHC 30.0 L RDW Std Deviation 54.2 H RDW Coeff of Chauncey 16.8 H Plt Count 550 H MPV 8.9 Sodium 135 L Potassium 4.0 Chloride 95 L Carbon Dioxide 37 H Anion Gap 2.0 L BUN 33 H Creatinine 0.49 L Est Cr Clr Drug Dosing 73.9 Est GFR ( Amer) 105.9 Est GFR (Non-Af Amer) 91.4 BUN/Creatinine Ratio 66.1 H Glucose 139 H Calcium 8.8 Magnesium 2.2 NT-Pro-B Natriuret Pep 5763 H Procalcitonin 0.09 PG Care Time/CCT Total # of Minutes Spent Total Time Spent with Patient: Total time spent is greater than 50% in coordination of care (as documented) at patient's floor/unit and/or counseling patient: Coding Level of Care Code 31458 Subseq Hosp Care Lvl 2 Diagnoses Acute systolic heart failure I50.21 Paroxysmal atrial fibrillation I48.0 LBBB (left bundle branch block) I44.7 Cardiomyopathy I42.9 CAD (coronary artery disease) I25.10 Mitral regurgitation I34.0
[2020-12-13] MEDS: AMITRIPTYLINE HCL 10 MG TAB PO SCH (20:58)
[2020-12-14] MEDS: BUDESONIDE/FORMOTEROL FUMARATE 160/4.5 60 PUFFS/INHALER INH SCH ×3 (00:21→20:15)
[2020-12-14] MEDS: DOXYCYCLINE HYCLATE 100 MG in DEXTROSE 5% 100 ML IV SCH ×2 (00:42→11:55)
[2020-12-14] MEDS: oxyCODONE HCL IR 5 MG TAB (IMMEDIATE RELEASE) PO SCH ×7 (01:36→20:21)
[2020-12-14 06:54] LABS: Hemoglobin 9.8 g/dL (12.0-16.0); Mean Corpuscular Hemoglobin 25.9 pg (25-34); Mean Corpuscular Hgb Conc 29.7 g/dL (32-36); Mean Corpuscular Volume 87.1 fL (80-100); Mean Platelet Volume 8.9 fL (7.4-10.4); Platelet Count 524 K/uL (130-400); RDW Coefficient of Variation 16.9 % (11.5-14.5); RDW Standard Deviation 53.6 fL (36.4-46.3); Red Blood Count 3.79 M/uL (4.2-5.4); White Blood Count 17.52 K/uL (4.8-10.8)
[2020-12-14 07:31] LABS: BUN Creatinine Ratio 66.9 (10-20); Calcium 8.7 mg/dl (8.5-10.1); Creatinine Clr Calc Pharmacy 69.8 ml/min; Est GFR (African American) 103.9 ml/min; Est GFR (Non-African American) 89.6 ml/min; Magnesium 2.4 mg/dl (1.8-2.4); Potassium 4.7 mmol/L (3.5-5.1)
[2020-12-14] MEDS: AMIODARONE 200 MG TAB PO SCH (08:06)
[2020-12-14] MEDS: SACCHAROMYCES BOULARDII 250 MG CAP PO SCH (08:06)
[2020-12-14] MEDS: predniSONE 20 MG TAB PO SCH (08:06)
[2020-12-14] MEDS: METOPROLOL SUCC 50MG EXT REL TAB PO SCH (08:06)
[2020-12-14] MEDS: SPIRONOLACTONE 25 MG TAB PO SCH (08:06)
[2020-12-14] MEDS: APIXABAN 2.5 MG TAB PO SCH ×2 (08:07→20:14)
[2020-12-14] MEDS: ISOSORBIDE MONO EXTENDED REL 30 MG TABCR PO SCH (08:07)
[2020-12-14] MEDS: SACUBITRIL-VALSARTAN 24-26 MG TAB PO SCH ×2 (08:07→20:16)
[2020-12-14] MEDS: PANTOprazole 40 MG TAB PO SCH (08:07)
[2020-12-14] MEDS: FUROSEMIDE 40 MG TAB PO SCH (08:07)
[2020-12-14] MEDS: POTASSIUM CHLORIDE CRTAB 20 MEQ TABCR PO SCH ×2 (08:10→20:17)
[2020-12-14] MEDS: ARTIFICIAL TEARS OP OINT 3.5 GM TUBE OPR SCH ×3 (08:10→20:13)
[2020-12-14] MEDS: DICLOFENAC SOD 1% GEL 100 GM TUBE EXT SCH ×2 (08:10→20:14)
[2020-12-14] MEDS: DOCUSATE SODIUM/SENNA 50/8.6MG TAB PO SCH ×2 (08:18→20:16)
--- NOTE | 2020-12-14 08:40 | Cardiology Progress Note ---
Date of Service December 14, 2020 Assessment & Plan (1) Acute systolic heart failure: (2) Paroxysmal atrial fibrillation: (3) LBBB (left bundle branch block): (4) Cardiomyopathy: (5) CAD (coronary artery disease): (6) Mitral regurgitation: Plan: ASSESSMENT/PLAN: 1. Acute systolic CHF: Subjectively improved. It seems she affected reasonable diuresis yesterday but for some reason her oral intake was recorded as much higher. She does not recall drinking significant amounts of fluid. Clinically improved. I think we can continue her oral diuretic. Continue BB and Entresto 2. Paroxysmal atrial fibrillation: Continue amiodarone at 200 mg daily. On anticoagulation for stroke risk reduction. 3. LBBB: She does have some periods of a narrow complex QRS. 4. Nonischemic cardiomyopathy: Continue Entresto and metoprolol succinate. Without significant improvement in her LV function she would be a good candidate for a biventricular ICD. 5. CAD: Mild and nonobstructive in 2018. 6. Mitral regurgitation: Non severe. Admission and Anticipated Discharge Date Admission Date: December 08, 2020 Subjective This morning patient claims to be feeling better overall. She was up in a chair for 4 hours yesterday by report. She can transfer with a walker but has done little ambulation. She feels that her cough is improved. Overall breathing improved. Arthritis pain control adequate. Review of Systems Review of Systems: Per HPI Physical Exam Physical Exam: She is alert and oriented x3. Mood affect appear normal. She answered all questions appropriately. HEENT: Sclerae are anicteric. Neuro: Cranial nerves intact. Facial palsy noted Lungs: Normal respiratory effort. Occasional upper airway congestion. No expiratory wheezing. Cardiac: The rhythm was regular. No murmur. Skin: There are no rashes noted on examination today. Results & Data ([facility]) Vital Signs (Past 12 Hours) Vital Signs Temp Pulse Pulse Resp BP Pulse Ox 12/14/20 07:51 36.7 C 63 18 136/68 93 12/14/20 07:35 75 12/14/20 03:00 36.7 C 58 L 16 152/82 H 97 Laboratory Results Abnormal Lab Results 12/13/20 12/13/20 12/13/20 10:10 10:10 10:10 WBC 21.48 H RBC 3.66 L Hgb 9.6 L Hct 32.0 L MCV 87.4 MCH 26.2 MCHC 30.0 L RDW Std Deviation 54.2 H RDW Coeff of Chauncey 16.8 H Plt Count 550 H MPV 8.9 Sodium 135 L Potassium 4.0 Chloride 95 L Carbon Dioxide 37 H Anion Gap 2.0 L BUN 33 H Creatinine 0.49 L Est Cr Clr Drug Dosing 73.9 Est GFR ( Amer) 105.9 Est GFR (Non-Af Amer) 91.4 BUN/Creatinine Ratio 66.1 H Glucose 139 H Calcium 8.8 Magnesium 2.2 NT-Pro-B Natriuret Pep 5763 H Procalcitonin 0.09 12/14/20 12/14/20 06:27 06:27 WBC 17.52 H RBC 3.79 L Hgb 9.8 L Hct 33.0 L MCV 87.1 MCH 25.9 MCHC 29.7 L RDW Std Deviation 53.6 H RDW Coeff of Chauncey 16.9 H Plt Count 524 H MPV 8.9 Sodium 134 L Potassium 4.7 D Chloride 96 L Carbon Dioxide 36 H Anion Gap 2.0 L BUN 35 H Creatinine 0.52 L Est Cr Clr Drug Dosing 69.8 Est GFR ( Amer) 103.9 Est GFR (Non-Af Amer) 89.6 BUN/Creatinine Ratio 66.9 H Glucose 79 Calcium 8.7 Magnesium 2.4 NT-Pro-B Natriuret Pep Procalcitonin PG Care Time/CCT Total # of Minutes Spent Total Time Spent with Patient: Total time spent is greater than 50% in coordination of care (as documented) at patient's floor/unit and/or counseling patient: Coding Level of Care Code 76530 Subseq Hosp Care Lvl 2 Diagnoses Acute systolic heart failure I50.21 Paroxysmal atrial fibrillation I48.0 LBBB (left bundle branch block) I44.7 Cardiomyopathy I42.9 CAD (coronary artery disease) I25.10 Mitral regurgitation I34.0
[2020-12-14] MEDS: cefTRIAXone SODIUM 1,000 MG in DEXTROSE 5% 50 ML IV SCH (10:14)
--- NOTE | 2020-12-14 12:03 | Hospitalist Progress Note ---
Date of Service December 14, 2020 Assessment & Plan (1) Pneumonia: Plan: Moist cough and just feeling more lethargic on 12/13. - Repeat CXR indicates new focal pneumonia, though procalcitonin is negative. continue Rocephin/Doxy, day 2 WBC down to 17k, breathing well on room air, cough is slightly productive would treat for 5-7 days (2) Acute systolic heart failure: Plan: EF was 40 - 45% in 11/2020. - Lasix started IV initially; now switched to Lasix 40mg PO daily, cardiology following - Appears euvolemic at this time. (3) Atrial fibrillation: Plan: Presently rate-controlled. - Continue amiodarone, metoprolol succinate, and apixaban (4) Chronic use of steroids: Plan: Due to rheumatoid arthritis. Presented with significant pain in the neck and hands. Improving daily. - Continue home Plaquenil - Discussed with Dr. Andrade on 12/10. - Increase prednisone to 40 mg PO daily x 1 week, then taper 10 mg every week. (Drop steroid to 30 mg on 12/17/2020). - Also using Voltaren gel BID on the hands which is helping (5) CAD (coronary artery disease): Plan: No present chest pain. Very mild non-obstructive CAD noted on 2018 cardiac catheterization. - Continue Imdur, metoprolol (6) Wide-complex tachycardia: Plan: Thought to be atrial arrhythmia with aberrancy. Presently in normal sinus with a LBBB. - Continue on amiodarone, replete magnesium PRN. (7) Anemia: Plan: Baseline hgb ~8-9. Anemia chronic disease. - At baseline (8) GERD (gastroesophageal reflux disease): Plan: No report of GERD today. - Continue Protonix (9) Chronic obstructive asthma: Plan: Patient feels that the Breo inhaler is difficult for her to use with her anatomical abnormalities of her craniofacial changes. Not in exacerbation. - Continue Symbicort (10) DVT prophylaxis: Plan: Apixaban Admission and Anticipated Discharge Date Admission Date: December 08, 2020 Subjective patient breathing a little better, not much of a cough, no fever/chills reviewed chart, reviewed labs, WBC coming down eating well appreciate cardiology note today, d/w Dr. Liu patient is weak, she is comfortable no nausea, no diarrhea Review of Systems Review of Systems: All systems reviewed & are unremarkable except as noted in Subjective Constitutional: + weakness; no fever and no fatigue Respiratory: + cough, + dyspnea and + dyspnea on exertion Cardiovascular: no chest pain and no edema Gastrointestinal: no abdominal pain, no nausea, no vomiting, no constipation and no diarrhea/loose stools Physical Exam Constitutional: well developed, + thin, + frail appearing and comfortable; no acute distress Neck: trachea midline, no thyromegaly Respiratory: normal respiratory effort; no respiratory distress, no labored breathing and not tachypneic Auscultation: + diminished lung sounds and + crackles (bases); no wheezes Cardiovascular: Rate/Rhythm: regular rate and regular rhythm Heart Sounds: normal S1 and normal S2; no murmur Vessels: no JVD Extremities: no edema Gastrointestinal (Abdomen): normal bowel sounds, soft, nontender, no hepatosplenomegaly Musculoskeletal: no cyanosis or clubbing, extremities motor strength 5/5 Skin: no rashes, warm and dry Neurologic: normal touch/pain/proprioception, CN's II-XI intact bilaterally, moves all extremities and awake; no focal motor deficits Psychiatric: A+Ox3, euthymic affect Results & Data Results & Data ([facility]) Vital Signs (Past 12 Hours) Vital Signs Temp Pulse Pulse Resp BP Pulse Ox 12/14/20 11:35 36.9 C 64 20 132/71 92 12/14/20 07:51 36.7 C 63 18 136/68 93 12/14/20 07:35 75 12/14/20 03:00 36.7 C 58 L 16 152/82 H 97 Laboratory Results Laboratory Results - last 24 hr 12/14/20 12/14/20 06:27 06:27 WBC 17.52 H RBC 3.79 L Hgb 9.8 L Hct 33.0 L MCV 87.1 MCH 25.9 MCHC 29.7 L RDW Std Deviation 53.6 H RDW Coeff of Chauncey 16.9 H Plt Count 524 H MPV 8.9 Sodium 134 L Potassium 4.7 D Chloride 96 L Carbon Dioxide 36 H Anion Gap 2.0 L BUN 35 H Creatinine 0.52 L Est Cr Clr Drug Dosing 69.8 Est GFR ( Amer) 103.9 Est GFR (Non-Af Amer) 89.6 BUN/Creatinine Ratio 66.9 H Glucose 79 Calcium 8.7 Magnesium 2.4 Medications Administered Current Inpatient Medications Acetaminophen (Acetaminophen 325 Mg Tab) 650 mg PO Q4H PRN PRN Reason: Pain or Fever Stop: 01/07/21 11:50 Last Admin: 12/10/20 16:33 Dose: 650 mg Documented by: Amiodarone HCl (Amiodarone 200 Mg Tab) 200 mg PO QAM [facility] Stop: 01/09/21 08:59 Last Admin: 12/14/20 08:06 Dose: 200 mg Documented by: Amitriptyline HCl (Amitriptyline Hcl 10 Mg Tab) 10 mg PO HS [facility] Stop: 01/07/21 20:59 Last Admin: 12/13/20 20:58 Dose: 10 mg Documented by: Apixaban (Apixaban 2.5 Mg Tab) 2.5 mg PO BID [facility] Stop: 01/07/21 20:59 Last Admin: 12/14/20 08:07 Dose: 2.5 mg Documented by: Artificial Tears (Artificial Tears) 1 drops OP DAILY PRN PRN Reason: Dry Eyes Stop: 01/07/21 12:11 Budesonide/Formoterol Fumarate (Budesonide/Formoterol Fumarate 160/4.5 60 Puffs/Inhaler) 2 puffs INH BID [facility] Stop: 01/07/21 20:59 Last Admin: 12/14/20 08:07 Dose: 2 puffs Documented by: Calcium Carbonate (Calcium Carbonate 500 Mg Chewable Tab) 500 mg PO DAILY PRN PRN Reason: Indigestion Stop: 01/07/21 12:03 Diclofenac Sodium (Diclofenac Sod 1% Gel 100 Gm Tube) 2 gm EXT BID [facility] Stop: 01/09/21 20:59 Last Admin: 12/14/20 08:10 Dose: 2 gm Documented by: Docusate Sodium (Docusate Sodium 100 Mg Cap) 100 mg PO BID PRN PRN Reason: Constipation Stop: 01/07/21 11:50 Last Admin: 12/12/20 12:16 Dose: 100 mg Documented by: Furosemide (Furosemide 40 Mg Tab) 40 mg PO QAM [facility] Stop: 01/13/21 08:59 Last Admin: 12/14/20 08:07 Dose: 40 mg Documented by: Glycerin (Glycerin Adult 12 Supp/Box Supp) 1 supp MT DAILY PRN PRN Reason: Constipation Stop: 01/12/21 12:24 Ceftriaxone Sodium 1,000 mg/ (Dextrose) 50 mls @ 100 mls/hr IV Q24H [facility]; Protocol Stop: 12/20/20 10:44 Last Admin: 12/14/20 10:14 Dose: 50 mls/hr Documented by: Doxycycline Hyclate 100 mg/ (Dextrose) 110 mls @ 50 mls/hr IV Q12H [facility] Stop: 12/20/20 10:44 Last Admin: 12/14/20 11:55 Dose: 50 mls/hr Documented by: Isosorbide Mononitrate (Isosorbide [place] Extended Rel 30 Mg Tabcr) 30 mg PO [facility] Stop: 01/08/21 08:59 Last Admin: 12/14/20 08:07 Dose: 30 mg Documented by: Magnesium Citrate (Magnesium Citrate 296 Ml/Btl) 148 ml PO DAILY PRN PRN Reason: constipation Stop: 01/07/21 11:50 Metoprolol Succinate (Metoprolol Succ 50mg Ext Rel Tab) 100 mg PO [facility] Stop: 01/08/21 08:59 Last Admin: 12/14/20 08:06 Dose: 100 mg Documented by: Multi-Ingredient Cream (Artificial Tears Op Oint 3.5 Gm Tube) 1 appln OPR TID [facility] Stop: 01/08/21 10:29 Last Admin: 12/14/20 08:10 Dose: 1 appln Documented by: Nitroglycerin (Nitroglycerin Sl 0.4 Mg/Tab Tab) 0.4 mg SL Q5M PRN PRN Reason: Chest Pain Stop: 01/07/21 11:50 Ondansetron HCl (Ondansetron Inj 2 Mg/Ml 2 Ml Vial) 4 mg IV Q6H PRN PRN Reason: Nausea Stop: 01/07/21 11:50 Oxycodone HCl (Oxycodone Hcl Ir 5 Mg Tab (Immediate Release)) 5 mg PO Q4H [facility] Stop: 12/27/20 12:59 Last Admin: 12/14/20 10:11 Dose: 5 mg Documented by: Pantoprazole Sodium (Pantoprazole 40 Mg Tab) 40 mg PO [facility] Stop: 01/08/21 08:59 Last Admin: 12/14/20 08:07 Dose: 40 mg Documented by: Potassium Chloride (Potassium Chloride Crtab 20 Meq Tabcr) 20 meq PO BID [facility] Stop: 01/11/21 15:24 Last Admin: 12/14/20 08:10 Dose: Not Given Documented by: Prednisone (Prednisone 20 Mg Tab) 40 mg PO QAM [facility] Stop: 01/09/21 17:14 Last Admin: 12/14/20 08:06 Dose: 40 mg Documented by: Saccharomyces Boulardii (Saccharomyces Boulardii 250 Mg Cap) 250 mg PO QAM [facility] Stop: 01/08/21 08:59 Last Admin: 12/14/20 08:06 Dose: 250 mg Documented by: Sacubitril/Valsartan (Sacubitril-Valsartan 24-26 Mg Tab) 1 tab PO BID [facility] Stop: 01/10/21 08:59 Last Admin: 12/14/20 08:07 Dose: 1 tab Documented by: Senna/Docusate Sodium (Docusate Sodium/Senna 50/8.6mg Tab) 1 tab PO BID [facility] Stop: 01/07/21 20:59 Last Admin: 12/14/20 08:18 Dose: 1 tab Documented by: Spironolactone (Spironolactone 25 Mg Tab) 25 mg PO QAM [facility] Stop: 01/09/21 08:59 Last Admin: 12/14/20 08:06 Dose: 25 mg Documented by: PG Care Time/CCT Total # of Minutes Spent Total Time Spent with Patient: Total time spent is greater than 50% in coordination of care (as documented) at patient's floor/unit and/or counseling patient: Coding Level of Care Code 37536 Subseq Hosp Care Lvl 2 Diagnoses Pneumonia J18.9 Acute systolic heart failure I50.21 Atrial fibrillation I48.91 Chronic use of steroids CAD (coronary artery disease) I25.10 Wide-complex tachycardia I47.2 Anemia D64.9 GERD (gastroesophageal reflux disease) K21.9 Chronic obstructive asthma J44.9 DVT prophylaxis Z29.9
[2020-12-14] MEDS: AMITRIPTYLINE HCL 10 MG TAB PO SCH (20:14)
[2020-12-15] MEDS: oxyCODONE HCL IR 5 MG TAB (IMMEDIATE RELEASE) PO SCH ×6 (00:20→20:27)
[2020-12-15] MEDS: DOXYCYCLINE HYCLATE 100 MG in DEXTROSE 5% 100 ML IV SCH ×3 (00:20→23:21)
[2020-12-15] MEDS: BUDESONIDE/FORMOTEROL FUMARATE 160/4.5 60 PUFFS/INHALER INH SCH ×2 (08:22→20:30)
[2020-12-15] MEDS: DICLOFENAC SOD 1% GEL 100 GM TUBE EXT SCH ×3 (08:23→23:22)
[2020-12-15] MEDS: METOPROLOL SUCC 50MG EXT REL TAB PO SCH (08:23)
[2020-12-15] MEDS: SACUBITRIL-VALSARTAN 24-26 MG TAB PO SCH ×2 (08:23→20:30)
[2020-12-15] MEDS: APIXABAN 2.5 MG TAB PO SCH ×2 (08:24→20:30)
[2020-12-15] MEDS: predniSONE 20 MG TAB PO SCH (08:24)
[2020-12-15] MEDS: PANTOprazole 40 MG TAB PO SCH (08:24)
[2020-12-15] MEDS: FUROSEMIDE 40 MG TAB PO SCH (08:24)
[2020-12-15] MEDS: AMIODARONE 200 MG TAB PO SCH (08:24)
[2020-12-15] MEDS: ISOSORBIDE MONO EXTENDED REL 30 MG TABCR PO SCH (08:24)
[2020-12-15] MEDS: SPIRONOLACTONE 25 MG TAB PO SCH (08:25)
[2020-12-15] MEDS: SACCHAROMYCES BOULARDII 250 MG CAP PO SCH (08:25)
[2020-12-15] MEDS: ARTIFICIAL TEARS OP OINT 3.5 GM TUBE OPR SCH ×3 (08:25→20:32)
[2020-12-15] MEDS: DOCUSATE SODIUM/SENNA 50/8.6MG TAB PO SCH (08:29)
[2020-12-15] MEDS: POTASSIUM CHLORIDE CRTAB 20 MEQ TABCR PO SCH (08:29)
--- NOTE | 2020-12-15 09:22 | Cardiology Progress Note ---
Date of Service December 15, 2020 Assessment & Plan (1) Acute systolic heart failure: (2) Paroxysmal atrial fibrillation: (3) LBBB (left bundle branch block): (4) Cardiomyopathy: (5) CAD (coronary artery disease): (6) Mitral regurgitation: Plan: ASSESSMENT/PLAN: 1. Acute systolic CHF: She appears euvolemic currently. In fact, possibly an element of intravascular depletion. She has developed what appears to be a progressive contraction alkalosis. I think we can potentially even decrease her diuretic dose to 20 mg of Lasix daily. We will continue her beta-mar and Entresto. 2. Paroxysmal atrial fibrillation: Continue current medications 3. LBBB: Unchanged 4. Nonischemic cardiomyopathy: Continue Entresto and metoprolol succinate. Without significant improvement in her LV function she would be a good candidate for a biventricular ICD. This can be addressed as an outpatient. 5. CAD: No current symptoms 6. Mitral regurgitation: Non severe. Admission and Anticipated Discharge Date Admission Date: December 08, 2020 Subjective This morning patient claims to be feeling somewhat better. Perhaps a little stronger today. Less of a cough. Breathing at rest appears comfortable. She was able to transfer to a chair for several hours yesterday. Anxious to walk. Review of Systems Review of Systems: Per HPI Physical Exam Physical Exam: She is alert and oriented x3. Mood affect appear normal. She answered all questions appropriately. HEENT: Sclerae are anicteric. Neuro: Cranial nerves intact. Facial palsy noted Lungs: Normal respiratory effort. Clear. Occasional upper airway congestion. No expiratory wheezing. Cardiac: The rhythm was regular. No murmur. Skin: There are no rashes noted on examination today. Results & Data ([facility]) Vital Signs (Past 12 Hours) Vital Signs Temp Pulse Pulse Resp BP Pulse Ox 12/15/20 08:00 71 12/15/20 07:35 36.7 C 66 18 133/69 98 12/15/20 04:00 36.6 C 64 20 155/75 H 98 12/14/20 22:37 36.6 C 59 L 18 144/85 H 98 PG Care Time/CCT Total # of Minutes Spent Total Time Spent with Patient: Total time spent is greater than 50% in coordination of care (as documented) at patient's floor/unit and/or counseling patient: Coding Level of Care Code 98843 Subseq Hosp Care Lvl 2 Diagnoses Acute systolic heart failure I50.21 Paroxysmal atrial fibrillation I48.0 LBBB (left bundle branch block) I44.7 Cardiomyopathy I42.9 CAD (coronary artery disease) I25.10 Mitral regurgitation I34.0
[2020-12-15] MEDS: cefTRIAXone SODIUM 1,000 MG in DEXTROSE 5% 50 ML IV SCH (11:05)
--- NOTE | 2020-12-15 12:03 | Palliative Care Progress Note ---
Date of Service December 15, 2020 Assessment & Plan (1) Neck pain: Plan: with arthritis. Improved with routine oxycodone, steroids and topical diclofenac (2) Constipation: Plan: Large BM after suppository yesterday but this was exhausting for her. Discussed increasing routine senna to 2 tabs BID with routine opioid dosing. She is agreeable to this. Continue docusate BID (3) Palliative care encounter: Plan: She is DNR/DNI. POLST updated and on chart. (4) Acute systolic heart failure: (5) Pulmonary infiltrate: (6) Atrial fibrillation: (7) CAD (coronary artery disease): (8) Chronic obstructive asthma: Admission and Anticipated Discharge Date Admission Date: December 08, 2020 Subjective Feels that she is improving but still very weak. Pain better controlled with routine dosing. She denies excessive sedation. No lethargy per RN. Large BM last night with suppository. Review of Systems Review of Systems: [place] Symptom Assessment Score Pain 1/3 Dyspnea 0/3 Anxiety 1/3 Fatigue 2/3 Nausea 0/3 Anorexia 0/3 Drowsiness 0/3 Palliative Performance Score 40% Physical Exam Constitutional: + frail appearing; no acute distress ENMT: Mouth: + dry oral mucous membranes Respiratory: normal respiratory effort; no labored breathing Cardiovascular: Rate/Rhythm: regular rate and regular rhythm Musculoskeletal: Extremities: + muscle atrophy ulnar deviation b/l UE digits Neurologic: awake; not confused Genitourinary: continent Results & Data ([facility]) Vital Signs (Past 12 Hours) Vital Signs Temp Pulse Pulse Resp BP Pulse Ox 12/15/20 08:00 71 12/15/20 07:35 98.1 F 66 18 133/69 98 12/15/20 04:00 97.9 F 64 20 155/75 H 98 PG Care Time/CCT Total # of Minutes Spent Total Time Spent with Patient: Total time spent is greater than 50% in coordination of care (as documented) at patient's floor/unit and/or counseling patient: Coding Level of Care Code 17529 Subseq Hosp Care Lvl 2 Diagnoses Neck pain M54.2 Constipation K59.00 Palliative care encounter Z51.5 Acute systolic heart failure I50.21 Pulmonary infiltrate R91.8 Atrial fibrillation I48.91 CAD (coronary artery disease) I25.10 Chronic obstructive asthma J44.9
--- NOTE | 2020-12-15 12:44 | Hospitalist Progress Note ---
Date of Service December 15, 2020 Assessment & Plan (1) Pneumonia: Plan: Moist cough and just feeling more lethargic on 12/13. - Repeat CXR indicates new focal pneumonia, though procalcitonin is negative. continue Rocephin/Doxy, day 3 WBC down to 17k yesterday, repeat tomorrow would treat for 5 days, last day 12/17 downgrade to medical floor (2) Acute systolic heart failure: Plan: EF was 40 - 45% in 11/2020. - Lasix started IV initially; now switched to Lasix 40mg PO daily, cardiology following - Appears euvolemic at this time. (3) Atrial fibrillation: Plan: Presently rate-controlled. - Continue amiodarone, metoprolol succinate, and apixaban move to medical floor (4) Chronic use of steroids: Plan: Due to rheumatoid arthritis. Presented with significant pain in the neck and hands. Improving daily. - Continue home Plaquenil - Discussed with Dr. Andrade on 12/10. - Increase prednisone to 40 mg PO daily x 1 week, then taper 10 mg every week. (Drop steroid to 30 mg on 12/17/2020). - Also using Voltaren gel BID on the hands which is helping (5) CAD (coronary artery disease): Plan: No present chest pain. Very mild non-obstructive CAD noted on 2018 cardiac catheterization. - Continue Imdur, metoprolol (6) Wide-complex tachycardia: Plan: Thought to be atrial arrhythmia with aberrancy. Presently in normal sinus with a LBBB. - Continue on amiodarone, replete magnesium PRN. (7) Anemia: Plan: Baseline hgb ~8-9. Anemia chronic disease. - At baseline (8) GERD (gastroesophageal reflux disease): Plan: No report of GERD today. - Continue Protonix (9) Chronic obstructive asthma: Plan: Patient feels that the Breo inhaler is difficult for her to use with her anatomical abnormalities of her craniofacial changes. Not in exacerbation. - Continue Symbicort (10) DVT prophylaxis: Plan: Apixaban Plan: go back to [facility] on Wednesday, she is very weak but get therapy there, [facility] will need to confirm they can take her palliative care has been following POLST completed, DNR/DNI Admission and Anticipated Discharge Date Admission Date: December 08, 2020 Subjective patient is feeling well today, no major changes, coughing but not much mucous production eating really well had a BM yesterday, said it was exhausting but she recovered appreciate note from palliative care discussed plan with CM, I think she would be ready for discharge to [facility] Wednesday no issues on tele, will move to medical floor she is asking to hold potassium for now, very difficult to get down, K was 4.7 yesterday, will hold tonight and check BMP in AM she says all the nurses are wonderful, she is so pleased with her care, wants to get a message to the [employer] Review of Systems Review of Systems: All systems reviewed & are unremarkable except as noted in Subjective Constitutional: + fatigue and + weakness; no fever Respiratory: + cough and + dyspnea on exertion; no pain with cough and no sputum production Cardiovascular: no chest pain and no edema Gastrointestinal: no abdominal pain, no nausea, no vomiting, no constipation and no diarrhea/loose stools Physical Exam Constitutional: well developed, + thin, + frail appearing and comfortable; no acute distress Neck: trachea midline, no thyromegaly Respiratory: normal respiratory effort; no respiratory distress, no labored breathing and not tachypneic Auscultation: + diminished lung sounds; no crackles and no wheezes Cardiovascular: Rate/Rhythm: regular rate and regular rhythm Heart Sounds: normal S1 and normal S2; no murmur Vessels: no JVD Extremities: no edema Gastrointestinal (Abdomen): normal bowel sounds, soft, nontender, no hepatosplenomegaly Musculoskeletal: no cyanosis or clubbing, extremities motor strength 5/5 Skin: no rashes, warm and dry Neurologic: normal touch/pain/proprioception, CN's II-XI intact bilaterally, moves all extremities and awake; no focal motor deficits Psychiatric: A+Ox3, euthymic affect Results & Data Results & Data ([facility]) Vital Signs (Past 12 Hours) Vital Signs Temp Pulse Pulse Resp BP Pulse Ox 12/15/20 12:27 36.6 C 68 18 152/74 H 95 12/15/20 08:00 71 12/15/20 07:35 36.7 C 66 18 133/69 98 12/15/20 04:00 36.6 C 64 20 155/75 H 98 Medications Administered Current Inpatient Medications Acetaminophen (Acetaminophen 325 Mg Tab) 650 mg PO Q4H PRN PRN Reason: Pain or Fever Stop: 01/07/21 11:50 Last Admin: 12/10/20 16:33 Dose: 650 mg Documented by: Amiodarone HCl (Amiodarone 200 Mg Tab) 200 mg PO QAM [facility] Stop: 01/09/21 08:59 Last Admin: 12/15/20 08:24 Dose: 200 mg Documented by: Amitriptyline HCl (Amitriptyline Hcl 10 Mg Tab) 10 mg PO HS [facility] Stop: 01/07/21 20:59 Last Admin: 12/14/20 20:14 Dose: 10 mg Documented by: Apixaban (Apixaban 2.5 Mg Tab) 2.5 mg PO BID [facility] Stop: 01/07/21 20:59 Last Admin: 12/15/20 08:24 Dose: 2.5 mg Documented by: Artificial Tears (Artificial Tears) 1 drops OP DAILY PRN PRN Reason: Dry Eyes Stop: 01/07/21 12:11 Budesonide/Formoterol Fumarate (Budesonide/Formoterol Fumarate 160/4.5 60 Pu ffs/Inhaler) 2 puffs INH BID [facility] Stop: 01/07/21 20:59 Last Admin: 12/15/20 08:22 Dose: 2 puffs Documented by: Calcium Carbonate (Calcium Carbonate 500 Mg Chewable Tab) 500 mg PO DAILY PRN PRN Reason: Indigestion Stop: 01/07/21 12:03 Diclofenac Sodium (Diclofenac Sod 1% Gel 100 Gm Tube) 2 gm EXT BID [facility] Stop: 01/09/21 20:59 Last Admin: 12/15/20 08:23 Dose: 2 gm Documented by: Docusate Sodium (Docusate Sodium 100 Mg Cap) 100 mg PO BID [facility] Stop: 01/14/21 20:59 Furosemide (Furosemide 20 Mg Tab) 20 mg PO QAM [facility] Stop: 01/15/21 08:59 Glycerin (Glycerin Adult 12 Supp/Box Supp) 1 supp [place] DAILY PRN PRN Reason: Constipation Stop: 01/12/21 12:24 Ceftriaxone Sodium 1,000 mg/ (Dextrose) 50 mls @ 100 mls/hr IV Q24H [facility]; Protocol Stop: 12/20/20 10:44 Last Infusion: 12/14/20 11:15 Dose: Infused Documented by: Doxycycline Hyclate 100 mg/ (Dextrose) 110 mls @ 50 mls/hr IV Q12H [facility] Stop: 12/20/20 10:44 Last Infusion: 12/15/20 02:32 Dose: Infused Documented by: Isosorbide Mononitrate (Isosorbide [place] Extended Rel 30 Mg Tabcr) 30 mg PO [facility] Stop: 01/08/21 08:59 Last Admin: 12/15/20 08:24 Dose: 30 mg Documented by: Magnesium Citrate (Magnesium Citrate 296 Ml/Btl) 148 ml PO DAILY PRN PRN Reason: constipation Stop: 01/07/21 11:50 Metoprolol Succinate (Metoprolol Succ 50mg Ext Rel Tab) 100 mg PO [facility] Stop: 01/08/21 08:59 Last Admin: 12/15/20 08:23 Dose: 100 mg Documented by: Multi-Ingredient Cream (Artificial Tears Op Oint 3.5 Gm Tube) 1 appln OPR TID [facility] Stop: 01/08/21 10:29 Last Admin: 12/15/20 08:25 Dose: 1 appln Documented by: Nitroglycerin (Nitroglycerin Sl 0.4 Mg/Tab Tab) 0.4 mg SL Q5M PRN PRN Reason: Chest Pain Stop: 01/07/21 11:50 Ondansetron HCl (Ondansetron Inj 2 Mg/Ml 2 Ml Vial) 4 mg IV Q6H PRN PRN Reason: Nausea Stop: 01/07/21 11:50 Oxycodone HCl (Oxycodone Hcl Ir 5 Mg Tab (Immediate Release)) [facility] Stop: 12/29/20 11:59 Pantoprazole Sodium (Pantoprazole 40 Mg Tab) 40 mg PO [facility] Stop: 01/08/21 08:59 Last Admin: 12/15/20 08:24 Dose: 40 mg Documented by: Potassium Chloride (Potassium Chloride Crtab 20 Meq Tabcr) 20 meq PO BID [facility] Stop: 01/11/21 15:24 Last Admin: 12/15/20 08:29 Dose: Not Given Documented by: Prednisone (Prednisone 20 Mg Tab) 40 mg PO [facility] Stop: 01/09/21 17:14 Last Admin: 12/15/20 08:24 Dose: 40 mg Documented by: Saccharomyces Boulardii (Saccharomyces Boulardii 250 Mg Cap) 250 mg PO [facility] Stop: 01/08/21 08:59 Last Admin: 12/15/20 08:25 Dose: 250 mg Documented by: Sacubitril/Valsartan (Sacubitril-Valsartan 24-26 Mg Tab) 1 tab PO BID [facility] Stop: 01/10/21 08:59 Last Admin: 12/15/20 08:23 Dose: 1 tab Documented by: Sennosides (Senna 8.6 Mg Tab) 17.2 mg PO BID [facility] Stop: 01/14/21 20:59 Spironolactone (Spironolactone 25 Mg Tab) 25 mg PO QAM [facility] Stop: 01/09/21 08:59 Last Admin: 12/15/20 08:25 Dose: 25 mg Documented by: PG Care Time/CCT Total # of Minutes Spent Total Time Spent with Patient: Total time spent is greater than 50% in coordination of care (as documented) at patient's floor/unit and/or counseling patient: Coding Level of Care Code 92626 Subseq Hosp Care Lvl 2 Diagnoses Pneumonia J18.9 Acute systolic heart failure I50.21 Atrial fibrillation I48.91 Chronic use of steroids CAD (coronary artery disease) I25.10 Wide-complex tachycardia I47.2 Anemia D64.9 GERD (gastroesophageal reflux disease) K21.9 Chronic obstructive asthma J44.9 DVT prophylaxis Z29.9
[2020-12-15] MEDS: DOCUSATE SODIUM 100 MG CAP PO SCH (20:29)
[2020-12-15] MEDS: SENNA 8.6 MG TAB PO SCH (20:29)
[2020-12-15] MEDS: AMITRIPTYLINE HCL 10 MG TAB PO SCH (20:30)
[2020-12-15] MEDS: ACETAMINOPHEN 325 MG TAB PO PRN (23:30)
[2020-12-16] MEDS ORDERED: oxyCODONE HCL IR 5 MG TAB (IMMEDIATE RELEASE) PO ONE (02:33)
[2020-12-16 06:20] LABS: Basophils # (auto) 0.01 K/uL (0-0.2); Basophils % (auto) 0.1 %; Hematocrit (blood only) 29.1 % (37-47); Hemoglobin 8.9 g/dL (12.0-16.0); Immature Granulocytes # (auto) 0.13 K/uL (0.00-0.02); Immature Granulocytes % (auto) 0.8 %; Lymphocytes % (auto) 11.7 %; Mean Corpuscular Hgb Conc 30.6 g/dL (32-36); Mean Corpuscular Volume 85.1 fL (80-100); Mean Platelet Volume 8.8 fL (7.4-10.4); Monocytes # (auto) 1.15 K/uL (0.11-0.59); Monocytes % (auto) 6.7 %; Neutrophils # (auto) 13.76 K/uL (1.4-6.5); Neutrophils % (auto) 80.7 %; Platelet Count 513 K/uL (130-400); RDW Coefficient of Variation 17.2 % (11.5-14.5); RDW Standard Deviation 53.2 fL (36.4-46.3); Red Blood Count 3.42 M/uL (4.2-5.4); White Blood Count 17.05 K/uL (4.8-10.8)
[2020-12-16 07:02] LABS: BUN Creatinine Ratio 61.1 (10-20); Calcium 8.4 mg/dl (8.5-10.1); Est GFR (African American) 103.9 ml/min; Est GFR (Non-African American) 89.6 ml/min
[2020-12-16] MEDS: oxyCODONE HCL IR 5 MG TAB (IMMEDIATE RELEASE) PO SCH ×4 (08:49→20:06)
[2020-12-16] MEDS: BUDESONIDE/FORMOTEROL FUMARATE 160/4.5 60 PUFFS/INHALER INH SCH ×2 (08:56→20:03)
[2020-12-16] MEDS: predniSONE 20 MG TAB PO SCH (08:56)
[2020-12-16] MEDS: METOPROLOL SUCC 50MG EXT REL TAB PO SCH (09:01)
[2020-12-16] MEDS: SACUBITRIL-VALSARTAN 24-26 MG TAB PO SCH ×2 (09:02→20:02)
[2020-12-16] MEDS: AMIODARONE 200 MG TAB PO SCH (09:02)
[2020-12-16] MEDS: APIXABAN 2.5 MG TAB PO SCH ×2 (09:03→20:02)
[2020-12-16] MEDS: SPIRONOLACTONE 25 MG TAB PO SCH (09:04)
[2020-12-16] MEDS: FUROSEMIDE 20 MG TAB PO SCH (09:04)
[2020-12-16] MEDS: SACCHAROMYCES BOULARDII 250 MG CAP PO SCH (09:05)
[2020-12-16] MEDS: ISOSORBIDE MONO EXTENDED REL 30 MG TABCR PO SCH (09:05)
[2020-12-16] MEDS: PANTOprazole 40 MG TAB PO SCH (09:06)
[2020-12-16] MEDS: DOCUSATE SODIUM 100 MG CAP PO SCH ×2 (09:06→20:06)
[2020-12-16] MEDS: SENNA 8.6 MG TAB PO SCH ×2 (09:07→20:01)
[2020-12-16] MEDS: ARTIFICIAL TEARS OP OINT 3.5 GM TUBE OPR SCH ×3 (09:08→20:01)
[2020-12-16] MEDS: DICLOFENAC SOD 1% GEL 100 GM TUBE EXT SCH ×2 (09:09→20:01)
[2020-12-16] MEDS: cefTRIAXone SODIUM 1,000 MG in DEXTROSE 5% 50 ML IV SCH (10:45)
[2020-12-16] MEDS: DOXYCYCLINE HYCLATE 100 MG in DEXTROSE 5% 100 ML IV SCH ×2 (11:19→23:58)
[2020-12-16] MEDS: AMITRIPTYLINE HCL 10 MG TAB PO SCH (20:02)
--- NOTE | 2020-12-16 21:04 | Hospitalist Progress Note ---
Date of Service December 16, 2020 Assessment & Plan (1) Pneumonia: Plan: RUL pneumonia. clinically improved/resolved. day #4 of rocephin. day #4 of doxy. plan 5 days of rocephin then 2 days of omnicef. plan 7 days of doxy - can switch to PO tomorrow. (2) Acute systolic heart failure: Plan: EF was 40 - 45% in 11/2020. EF this month now 30-35%. Euvolemic. Cont lasix 20mg daily. Cont metoprolol succinate 100mg daily. Cont entresto. Cont aldactone. daily weights, etc. BMP stable. Dr Liu from cardiology has been following. will need f/u with cards within a week of d/c. (3) Atrial fibrillation: Plan: Rate-controlled. was in NSR upon last check. Continue amiodarone, metoprolol succinate, and Eliquis. (4) Chronic use of steroids: Plan: Due to rheumatoid arthritis. Presented with significant pain in the neck and hands. No complaints of such today. Remains on plaquenil. Prior hospitalist discussed care with Dr. Andrade on 12/10. Increased prednisone to 40 mg PO daily x 1 week, then taper 10 mg every week thereafter. Usual dose is 7mg/day. (5) CAD (coronary artery disease): Plan: Very mild non-obstructive CAD noted on 2018 cardiac catheterization. Continue Imdur, metoprolol. CAD not felt to be cause of her LV dyfunction. (6) Wide-complex tachycardia: Plan: Thought to be atrial arrhythmia with aberrancy prior. Presently in normal sinus with a LBBB. Cont amiodarone. Worsening LV function - due to LBBB? (7) Anemia: Plan: Baseline hgb ~8-9. Anemia chronic disease. Most recent CBC with stable H/H. (8) GERD (gastroesophageal reflux disease): Plan: PPI (9) Chronic obstructive asthma: Plan: Patient feels that the Breo inhaler is difficult for her to use with her anatomical abnormalities of her craniofacial changes. Not in exacerbation. Changed to symbicort. No flare at this time. (10) DVT prophylaxis: Plan: Apixaban Plan: patient wants nothing but to go back to [place] does NOT want SNF or [facility] for rehab will d/w SW d/c gaby repeat COVID test today Admission and Anticipated Discharge Date Admission Date: December 08, 2020 Subjective feeling much better cough and dyspnea improved/resolved eating much better wants to return to [place] - does NOT want to go to [facility] or SNF feels like she will do fine at [place] - she is willing to get extra help for herself into [place] if she needs it no new complaints Review of Systems Review of Systems: gen - no fevers, no chills neuro - no headache pulm - cough improved, dyspnea resolved cv - no chest pain abd/GI - no abd pain Physical Exam Physical Exam: gen - NAD, pleasant HEENT - right facial droop mouth - MMM heart - RRR, s1 s2 lungs - CTA b/l, no wheeze, occasional rale only abd - soft NT ND BS+ ext - no edema psych - a/o x 3 Results & Data Results & Data ([facility]) Vital Signs (Past 12 Hours) Vital Signs Temp Pulse Resp BP Pulse Ox 12/16/20 14:00 36.6 C 66 16 122/72 95 Laboratory Results Laboratory Results - last 24 hr 12/16/20 12/16/20 12/16/20 06:06 06:06 07:56 WBC 17.05 H RBC 3.42 L Hgb 8.9 L Hct 29.1 L MCV 85.1 MCH 26.0 MCHC 30.6 L RDW Std Deviation 53.2 H RDW Coeff of Chauncey 17.2 H Plt Count 513 H MPV 8.8 Immature Gran % (Auto) 0.8 Neut % (Auto) 80.7 Lymph % (Auto) 11.7 [place] % (Auto) 6.7 Eos % (Auto) 0.0 Baso % (Auto) 0.1 Neut # (Auto) 13.76 H Lymph # (Auto) 2.00 [place] # (Auto) 1.15 H Eos # (Auto) 0.00 Baso # (Auto) 0.01 Immature Gran # (Auto) 0.13 H Sodium 134 L Potassium 3.9 Chloride 97 L Carbon Dioxide 33 H Anion Gap 4.0 BUN 32 H Creatinine 0.52 L Est Cr Clr Drug Dosing 66.0 Est GFR ( Amer) 103.9 Est GFR (Non-Af Amer) 89.6 BUN/Creatinine Ratio 61.1 H Glucose 81 Calcium 8.4 L COVID-19 Eval Order SARS-CoV-2 (PCR) 12/16/20 12/16/20 15:20 17:00 WBC RBC Hgb Hct MCV MCH MCHC RDW Std Deviation RDW Coeff of Chauncey Plt Count MPV Immature Gran % (Auto) Neut % (Auto) Lymph % (Auto) [place] % (Auto) Eos % (Auto) Baso % (Auto) Neut # (Auto) Lymph # (Auto) [place] # (Auto) Eos # (Auto) Baso # (Auto) Immature Gran # (Auto) Sodium Potassium Chloride Carbon Dioxide Anion Gap BUN Creatinine Est Cr Clr Drug Dosing Est GFR ( Amer) Est GFR (Non-Af Amer) BUN/Creatinine Ratio Glucose Calcium COVID-19 Eval Order Covid19 at [facility] SARS-CoV-2 (PCR) NEGATIVE PG Care Time/CCT Total # of Minutes Spent Total Time Spent with Patient: Total time spent is greater than 50% in coordination of care (as documented) at patient's floor/unit and/or counseling patient: Coding Level of Care Code 97711 Subseq Hosp Care Lvl 2 Diagnoses Pneumonia J18.9 Acute systolic heart failure I50.21 Atrial fibrillation I48.91 Chronic use of steroids CAD (coronary artery disease) I25.10 Wide-complex tachycardia I47.2 Anemia D64.9 GERD (gastroesophageal reflux disease) K21.9 Chronic obstructive asthma J44.9 DVT prophylaxis Z29.9
[2020-12-16 22:45] VITALS: TEMP 98.2
[2020-12-17] MEDS: oxyCODONE HCL IR 5 MG TAB (IMMEDIATE RELEASE) PO SCH ×2 (07:34→11:31)
[2020-12-17 07:53] VITALS: BP 134/73; PULSE 66; O2SAT 96
[2020-12-17] MEDS: SENNA 8.6 MG TAB PO SCH (08:45)
[2020-12-17] MEDS: SPIRONOLACTONE 25 MG TAB PO SCH (08:45)
[2020-12-17] MEDS: predniSONE 20 MG TAB PO SCH (08:45)
[2020-12-17] MEDS: ARTIFICIAL TEARS OP OINT 3.5 GM TUBE OPR SCH ×2 (08:46→13:36)
[2020-12-17] MEDS: METOPROLOL SUCC 50MG EXT REL TAB PO SCH (08:46)
[2020-12-17] MEDS: SACUBITRIL-VALSARTAN 24-26 MG TAB PO SCH (08:46)
[2020-12-17] MEDS: ISOSORBIDE MONO EXTENDED REL 30 MG TABCR PO SCH (08:46)
[2020-12-17] MEDS: FUROSEMIDE 20 MG TAB PO SCH (08:46)
[2020-12-17] MEDS: APIXABAN 2.5 MG TAB PO SCH (08:46)
[2020-12-17] MEDS: AMIODARONE 200 MG TAB PO SCH (08:46)
[2020-12-17] MEDS: SACCHAROMYCES BOULARDII 250 MG CAP PO SCH (08:46)
[2020-12-17] MEDS: PANTOprazole 40 MG TAB PO SCH (08:46)
[2020-12-17] MEDS: DICLOFENAC SOD 1% GEL 100 GM TUBE EXT SCH (08:47)
[2020-12-17] MEDS: DOCUSATE SODIUM 100 MG CAP PO SCH (08:47)
[2020-12-17] MEDS: BUDESONIDE/FORMOTEROL FUMARATE 160/4.5 60 PUFFS/INHALER INH SCH (08:47)
[2020-12-17] MEDS: cefTRIAXone SODIUM 1,000 MG in DEXTROSE 5% 50 ML IV SCH (10:53)
[2020-12-17 11:01] LABS: Basophils # (auto) 0.03 K/uL (0-0.2); Basophils % (auto) 0.1 %; Eosinophils # (auto) 0.11 K/uL (0-0.5); Eosinophils % (auto) 0.5 %; Hematocrit (blood only) 32.6 % (37-47); Hemoglobin 10.1 g/dL (12.0-16.0); Immature Granulocytes # (auto) 0.19 K/uL (0.00-0.02); Immature Granulocytes % (auto) 0.9 %; Lymphocytes # (auto) 1.37 K/uL (1.2-3.4); Lymphocytes % (auto) 6.2 %; Mean Corpuscular Hemoglobin 26.3 pg (25-34); Mean Corpuscular Volume 84.9 fL (80-100); Mean Platelet Volume 8.9 fL (7.4-10.4); Monocytes # (auto) 1.36 K/uL (0.11-0.59); Monocytes % (auto) 6.2 %; Neutrophils % (auto) 86.1 %; Platelet Count 599 K/uL (130-400); RDW Coefficient of Variation 17.4 % (11.5-14.5); RDW Standard Deviation 53.8 fL (36.4-46.3); Red Blood Count 3.84 M/uL (4.2-5.4); White Blood Count 21.96 K/uL (4.8-10.8)
[2020-12-17 11:16] LABS: Anisocytosis Present; Hypochromasia Present; Schistocytes 1+
[2020-12-17] MEDS: DOXYCYCLINE HYCLATE 100 MG in DEXTROSE 5% 100 ML IV SCH (11:24)
[2020-12-17 11:26] LABS: BUN Creatinine Ratio 51.9 (10-20); Calcium 8.9 mg/dl (8.5-10.1); Creatinine Clr Calc Pharmacy 64.8 ml/min; Est GFR (African American) 103.2 ml/min; Potassium 3.6 mmol/L (3.5-5.1)
[2020-12-17] MEDS ORDERED: ADVANCED PROBIOTIC 1250 MG CAPSULE PO SCH (13:00)
[2020-12-17] MEDS ORDERED: NYSTATIN SUSP 500,000 U/5 ML UDC PO SCH (13:00)
--- NOTE | 2020-12-17 14:59 | Discharge Summary ---
Date of Service date of admission - December 08, 2020 date of discharge - December 17, 2020 Admission HPI Per Admitting Provider The Pt presents with acute respiratory failure with hypoxia, she has a history of systolic heart failure but has EF 45%, she has CHF changes seen on CXR, she also has new LBBB, and in the last admission she has afib with aberrancy and started on amiodarone. Reportedly has prn symbicort. Covid negative. Patient states she actually had shortness of breath since her discharge because she was discharged on Breo instead of her Symbicort and she has difficult time due to her craniofacial abnormalities using Breo appropriately. She eventually was able to get back to her Symbicort but feels her shortness of breath progressed and she did not recover subsequently presenting here. Her chest x- ray however does actually look more like pulmonary edema from acute systolic heart failure than being short of breath from obstructive or reactive lung disease. During the time of her illness since she left on 22 November she denies any chest pain or pressure or feelings of palpitations notably she was here with a atrial arrhythmia and aberrancy last admission. Principal Diagnosis acute hypoxic respiratory failure 2nd to acute/chronic systolic CHF and RUL pneumonia Discharge Exam Gen: NAD, a/o x 3 Head: craniofacial abnormality of right face Neck: no JVD Heart: RRR, s1 s2, 2/6 systolic murmur LLSB Lungs: CTA b/l Abd: soft NT ND BS+ ext: no edema Discharge Data Allergies Allergy/AdvReac Type Severity Reaction Status Date / Time ciprofloxacin Allergy Severe PASSED Verified 12/26/20 11:56 OUT, SEVERE RXN PER PATIENT nut - unspecified Allergy Intermediate HIVES Verified 12/26/20 11:56 banana Allergy Mild RASH Verified 12/26/20 11:56 latex Allergy Mild RASH Verified 12/26/20 11:56 moxifloxacin Allergy Mild PAIN IN Verified 12/26/20 11:56 HEEL nickel Allergy Mild RASH ON Verified 12/26/20 11:56 EARS WITH EARRINGS WITH NICKEL Sulfa (Sulfonamide Allergy Mild Rash Verified 12/26/20 11:56 Antibiotics) fluconazole AdvReac Intermediate TACHYCARDIA, Verified 12/26/20 11:56 HAIR LOSS adhesive AdvReac Mild CONTACT Verified 12/26/20 11:56 DERMATITIS codeine AdvReac Mild DIZZINESS Verified 12/26/20 11:56 hydrocodone AdvReac Dizziness Verified 12/26/20 11:56 Consultations [facility] Palliative Care PT, OT Procedures Performed Echocardiogram: * EF 30-35% * moderate MR * global hypokinesis of LV Hospital Course (1) Pneumonia: About mid-way through her stay the patient had significant cough and other infectious symptoms. A repeat chest x-ray demonstrated RUL pneumonia. She was started on rocephin/doxycycline to treat for community-acquired pneumonia. She improved with such. At discharge she was transitioned to oral omnicef and doxycycline. In total she will receive 7 days of IV/PO antibiotics. She had no O2 requirement prior to discharge. COVID testing x 2 were negative. She had no overt swallowing difficulty during the stay. With that said, in light of her craniofacial abnormality, I advised a speech the rapy consult upon return to [place] for swallow eval. Repeat cxr in 1 month was advised to ensure radiographic resolution of her RUL pneumonia. (2) Acute systolic heart failure: EF was 40 - 45% in 11/2020. EF this admission now 30-35% Was diuresed during the stay and ultimately transitioned to oral lasix 20mg daily. She will continue metoprolol succinate 100mg daily, entresto, and aldactone. HCTZ was discontinued. She will need salt restriction, fluid restriction, and daily weights upon return to [place]. Dr Tyler Liu from [facility] cardiology consulted during the stay and provided mckeon recommendations for her care. She will need f/u with cardiology within a week of d/c. Etiology of worsening systolic CHF?? LBBB-related? other? (3) Atrial fibrillation: Paroxysmal. Was in NSR during the stay. Continue amiodarone, metoprolol succinate, and Eliquis. (4) Chronic use of steroids: Due to rheumatoid arthritis. Did have RA flare during the visit. Phone discussion was held with Dr. Alex Andrade on 12/10, her primary siebel solution architect. Prednisone taper was advised. Increased prednisone to 40 mg PO daily x 1 week, then taper 10 mg every week thereafter. Usual daily dose is 7mg/day. She also takes plaquenil daily. Joints were improved by time of discharge. (5) CAD (coronary artery disease): Very mild non-obstructive CAD noted on 2018 cardiac catheterization. Continue Imdur, metoprolol. CAD not felt to be cause of her LV dyfunction. (6) Wide-complex tachycardia: Thought to be atrial arrhythmia with aberrancy prior. Presently in normal sinus with a LBBB. Cont amiodarone. Worsening LV function - due to LBBB? (7) Anemia: Baseline hgb ~8-9. 2nd to anemia chronic disease. Discharge hemoglobin was 10.1. (8) GERD (gastroesophageal reflux disease): Continue PPI. (9) Chronic obstructive asthma: Patient feels that the Breo inhaler is difficult for her to use with her anatomical abnormalities of her craniofacial changes. Thus, breo changed to symbicort at her request. No flare at this time. (10) Left bundle branch block (LBBB): new-onset. follow-up with [facility]iology for such. (11) Candidiasis of mouth and esophagus: Nystatin solution qid x 7-10 days. (12) Leukocytosis: Since 07/2020 her WBC count has been elevated. Her platelets have also been high dating back to at least 10/2020. Advise consultation with hematology as outpatient to rule out a primary bone marrow disorder causing these findings. (13) Thrombocytosis: (14) Poor dentition: Patient has had issues with her teeth as of late and inquired about dental extraction. Advised outpatient consultation with Dr Trey Decker to discuss this. Total Time Total Time Spent Total Time Spent (In Minutes): 50 Discharge Plan Discharge Items Patient Disposition: Personal Intermediate Reason For Visit: ACUTE SYSTOLIC HEART FAILURE Discharge Diagnosis: 1. right upper lobe pneumonia 2. acute on chronic systolic congestive heart failure Activity: Resume your previous activity Activity Comment: as tolerated Non-emergency contact: Primary Care Provider and Slab Grinder Call non-emergency contact if: you have any medication questions, your symptoms worsen and you have a fever Follow-up/Referrals: Radha Sands PA-C [Physician Licensed Acupuncturist] - 12/19/20 2:00 pm (Congestive Heart Failure Program Appointment Information Early follow up is essential to managing your heart failure. An appointment has been scheduled for you with the [facility] Heart Failure Program within 7 days of discharge. Anticipate this visit to be 30-60 minutes long. Please expect a wallpaper consultant phone call from one of our nurses approximately 48 hours from discharge. They will also be placing an order for lab work to be completed 1-2 days prior to your heart failure follow up appointment. Please be sure to have this done so we can go over the results when you come in. Office Location The cardiology office building is located in front of the hospital at [address] Bring the following with you to your follow-up doctor appointments: Please bring your daily weight log any discharge paperwork all of your medication bottles with you to this visit. ) Alxe Lazaro DO [Physician] - 12/23/20 1:30 pm [facility] [Primary Care Provider] - Diet: Heart Healthy Fluids: 1500ml (6 cups) Diet Texture: Easy to Chew Addtl Attending Provider Instructions: Mrs Zepeda was treated for the problems listed above in "discharge diagnoses." Her pneumonia and fluid retention (from congestive heart failure) both improved while here. Discharge weight = 51.5kg. Recommendations - 1. DAILY morning standing scale weights. Please notify her hydraulic press servicer if any weight gain of more than 2-3 pounds over 1-2 days is seen. 2. HOLD her chronic prednisone dose of 7mg daily until the prednisone taper (which is 15 days long) is complete. At the conclusion of the 15 day taper she can resume her normal dose of 7mg daily of prednisone. 3. TWO additional days of antibiotics (cefdinir starting tomorrow am, doxycycline starting TONIGHT). 4. consult PT/OT for general deconditioning. 5. consider referral to Dr Trey Decker for consideration of teeth extraction. 6. consult speech therapy for swallowing evaluation. 7. repeat 2-view chest x-ray in 1 month to ensure resolution of right upper lobe pneumonia. Follow-up -- see separate section Return to [facility] if -- * worsening shortness of breath occurs * uncontrolled pain in any location * chest pains * fever over 100 degrees * any other concerns Pending Studies at Discharge: No Stand-Alone Forms: [facility], Smoking Cessation Skilled Items Patient informed of condition?: Yes DNR: Yes Discharge Level of Care: Other Communicable Disease: No Discharge Prognosis: Stable Lines: None Urinary Catheter: No Medications and DC Order Prescriptions: New Entresto 24-26 mg Tablet 1 tab PO BID Qty: 60 RF: 2 spironolactone 25 mg Tablet 25 mg PO QAM Qty: 30 RF: 2 furosemide 20 mg Tablet 20 mg PO QAM Qty: 30 RF: 2 Continued acetaminophen [Tylenol] 325 mg Tablet 650 mg PO Q8H MDD 3 GRAMS/24 HOURS PRN (Reason: Pain) RF: 0 sennosides-docusate sodium 8.6-50 mg Tablet 1 tab-cap PO BID RF: 0 prednisone 5 mg tablet 5 mg PO QAM RF: 0 calcium carbonate 500 mg calcium (1,250 mg) Tablet,Chewable 500 mg PO DAILY PRN (Reason: Indigestion) RF: 0 Saccharomyces boulardii [Florastor] 250 mg Capsule 250 mg PO QAM RF: 0 Artificial Tears (cmc) 1 % Drops 1 drp OPB DAILY PRN (Reason: Dry Eyes) RF: 0 amitriptyline 10 mg tablet 10 mg PO HS RF: 0 docusate sodium 100 mg capsule 100 mg PO QAM PRN (Reason: Constipation) RF: 0 isosorbide mononitrate 30 mg Tablet Extended Release 24 Hr 30 mg PO QAM Qty: 30 RF: 0 nitroglycerin 0.4 mg tablet, sublingual 0.4 mg sublingual Q5M PRN (Reason: Chest Pain) RF: 0 budesonide-formoterol [Symbicort] 160-4.5 mcg/actuation HFA aerosol inhaler 2 puff Inhalation BID17 Qty: 0 RF: 0 Discontinued hydrocodone-acetaminophen 5-325 mg tablet 0.5 tab PO Q6H PRN (Reason: pain) Qty: 60 RF: 0 oxycodone 5 mg tablet 5 mg PO Q4H PRN (Reason: Pain) Qty: 120 RF: 0 hydrochlorothiazide 25 mg tablet 25 mg PO QAM RF: 0 amiodarone 200 mg tablet 400 mg PO QAM RF: 0 No Action Eliquis 2.5 mg tablet 2.5 mg PO BID Qty: 90 RF: 3 pantoprazole 40 mg tablet,delayed release (DR/EC) 40 mg PO QAM Qty: 90 RF: 3 hydrochlorothiazide 25 mg tablet 25 mg PO QAM RF: 0 hydrocodone-acetaminophen 5-325 mg tablet 1 tab PO Q6H PRN (Reason: Pain) RF: 0 metoprolol succinate 100 mg tablet extended release 24 hr 100 mg PO QAM RF: 0 prednisone 1 mg tablet 2 mg PO QAM RF: 0 amiodarone 200 mg tablet 400 mg PO QAM RF: 0 diclofenac sodium 1 % gel 2 g topical Q6H RF: 0 bisacodyl [Dulcolax (bisacodyl)] 10 mg suppository 10 mg [place] DAILY Qty: 12 RF: 0 Discharge Orders: Discharge Order (Routine); Ordered 12/17/20 Ordered By: Jamin Guevara/Other Patient Handouts: DVT Post Op Prevention Admission Data Admit Date/Time: 12/08/20 10:22 Attending Provider: Jamin Maurer Admit Provider: Teodoro Marie [facility] Other Providers: Rip Hall ; Teodoro Marie ; Wilfred White ; Rylee James Other Interventions: Discharge Summary Assessment (RN) Last Done: 12/17/20 11:20 Coding Level of Care Code D/C DAY MANAGEMENT >30 MINS Diagnoses Pneumonia J18.9 Acute systolic heart failure I50.21 Atrial fibrillation I48.91 Chronic use of steroids CAD (coronary artery disease) I25.10 Wide-complex tachycardia I47.2 Anemia D64.9 GERD (gastroesophageal reflux disease) K21.9 Chronic obstructive asthma J44.9 Left bundle branch block (LBBB) I44.7 Candidiasis of mouth and esophagus B37.81; B37.0 Leukocytosis D72.829 Thrombocytosis D47.3 Poor dentition K08.9
[2020-12-17] MEDS ORDERED: DOXYCYCLINE HYCLATE 100 MG CAP PO SCH (21:00)
[2020-12-18] MEDS ORDERED: CEFDINIR 300 MG CAP PO SCH (09:00)
[2020-12-18] MEDS ORDERED: predniSONE 10 MG TABLET PO SCH (09:00)
== END 2020-12-17 16:04 | disposition home or self-care (01) | DRG 291 ==
LOC: ED 07:19 → SUATTDRO 10:22 → 2S 10:22 → 3E 12-15 14:48